=== PATIENT | male | born 1940 | race Caucasian/White ===

== ENCOUNTER 2018-12-03 06:40 | Inpatient (IN) ==
[2018-12-03 07:37] LABS: Eosinophils # (auto) 0.02 K/uL (0-0.5); Eosinophils % (auto) 0.4 %; Hematocrit (blood only) 28.6 % (42-52); Hemoglobin 8.8 g/dL (14.0-18.0); Immature Granulocytes # (auto) 0.01 K/uL (0.00-0.02); Immature Granulocytes % (auto) 0.2 %; Lymphocytes # (auto) 0.99 K/uL (1.2-3.4); Lymphocytes % (auto) 17.9 %; Mean Corpuscular Hemoglobin 24.9 pg (25-34); Mean Corpuscular Hgb Conc 30.8 g/dL (32-36); Monocytes # (auto) 0.35 K/uL (0.11-0.59); Monocytes % (auto) 6.3 %; Neutrophils # (auto) 4.17 K/uL (1.4-6.5); Neutrophils % (auto) 75.2 %; Platelet Count 158 K/uL (130-400); RDW Coefficient of Variation 14.8 % (11.5-14.5); RDW Standard Deviation 43.7 fL (36.4-46.3); Red Blood Count 3.53 M/uL (4.7-6.1); White Blood Count 5.54 K/uL (4.8-10.8)
[2018-12-03 07:47] LABS: INR 1.1 (0.9-1.1); Partial Thromboplastin Ratio 0.8; Partial Thromboplastin Time 22.6 Seconds (21.0-31.0); Prothrombin Time 10.9 Seconds (9.0-12.0)
[2018-12-03 07:52] LABS: Alanine Aminotransferase 16 U/L (12-78); Albumin Level 3.7 gm/dl (3.4-5.0); Aspartate Aminotransferase 10 U/L (15-37); BUN Creatinine Ratio 28.4 (10-20); Blood Urea Nitrogen 28 mg/dl (7-18); Calcium 8.4 mg/dl (8.5-10.1); Carbon Dioxide 25 mmol/L (21-32); Chloride 104 mmol/L (98-107); Creatinine Clr Calc Pharmacy 68.1 ml/min; Est GFR (African American) 83.6; Est GFR (Non-African American) 72.1; Glucose 183 mg/dl (70-99); Potassium 3.9 mmol/L (3.5-5.1); Sodium 137 mmol/L (136-145)
[2018-12-03 07:56] LABS: Albumin Globulin Ratio 1.2 (0.9-2); Alkaline Phosphatase 51 U/L (45-117); Bilirubin,Total 0.3 mg/dl (0.2-1); Creatine Kinase 63 U/L (39-308); Creatine Kinase MB 1.1 ng/ml (0.5-3.6); Total Protein 6.7 gm/dl (6.4-8.2); Troponin I < 0.015 ng/ml (0-0.045)
[2018-12-03] MEDS ORDERED: SODIUM CHLORIDE 0.9% 1000ML 1,000 ML IV ONE (08:16)
[2018-12-03] MEDS ORDERED: PANTOprazole 80 MG in DEXTROSE 5% 100 ML IV ONE (08:45)
[2018-12-03 08:50] LABS: iSTAT Creatinine 0.9 mg/dl (0.6-1.3); iSTAT Hemoglobin 9.5 g/dl (14.0-18.0); iSTAT Ionized Calcium 1.15 mmol/l (1.12-1.32); iSTAT Potassium 3.8 mEq/L (3.3-5.0)
[2018-12-03] MEDS ORDERED: IOVERSOL 100ml IV PRN (08:55)
--- NOTE | 2018-12-03 09:00 | History & Physical Report ---
Date of Service December 03, 2018 Assessment & Plan (1) GI bleed: Pt is 78 y/o M with PMH HTN, dyslipidemia, DM II, aortic sclerosis presented with c/o rectal bleeding x 1 day. Describes dark red blood and no stool x 3 episodes. C/O dizziness with standing this morning. Denies syncope, abdominal pain, recent diarrhea/constipation, fever/chills. No NSAID use or alcohol use. In ER afebrile, P: 87, BP: 111/64. No leukocytosis. H/H: 8.8/28.6 (Hgb of 12.9 in 2012), Plt: 158, BUN: 28, Cr: 0.9 CT ABD/PELVIS: No significant abnormality DDX: diverticular bleed -In ER given 1L NSS -PPI drip per GI -IVF -NPO for now -Hold aspirin -Type and cross and hold -Monitor H&H and transfuse as needed -GI consult, spoke with SERGIO Alonso and aware of pt -Monitor CBC, BMP (2) Abnormal EKG: EKG with left axis deviation. no significant changes from prior EKG No CP or SOB and denies exertional CP or SOB Initial troponin negative -Repeat troponin -Resting echo -Plan for further outpatient follow up if no acute findings (3) Diabetes mellitus, type II: A1c: 6.9 on 11/18/18 -Hold metformin, glimepiride, Januvia -Novolog sliding scale per protocol (4) HTN (hypertension): BP on low side with SBPs in low 100's -Hold lisinopril/HCTZ -Monitor BP (5) Dyslipidemia: -Hold statin for now DVT Prophylaxis -SCDs secondary to GI bleeding Full Code as per discussion with pt Follows with Dr Flores for routine care Pt was seen and care coordinated with Dr Hudson. See addendum History of Present Illness Chief Complaint: Rectal bleeding Primary Care Provider: Elvis Flores MD Pt is 78 y/o M with PMH HTN, dyslipidemia, DM II, aortic sclerosis presented to ER with c/o rectal bleeding. Patient states yesterday started with sensation like had to have BM however was all dark red blood and no stool. This occurred 3 times. This am dizziness with standing this morning. No syncope. Denies any chest pain or shortness of breath. Denies any abdominal pain. This morning drank a cup of coffee and ate a piece of bread with peanut butter. Denies fever/chills, diaphoresis, N/V, STARR, vision changes, neck pain, exertional CP or SOB, orthopnea, palpitations, cough, sore throat, choking, otalgia, rhinorrhea, paresthesias, weakness, extremity weakness, extremity edema, rashes, urinary symptoms. Hx colonoscopy in 2010: sigmoid diverticulosis Allergies Allergy/AdvReac Type Severity Reaction Status Date / Time No Known Allergies Allergy Unverified 12/03/18 07:23 Home Medications Home Medications Medication Instructions Recorded Confirmed Type aspirin [Aspir-81] 81 mg PO DAILY 12/03/18 12/03/18 History atorvastatin 40 mg PO HS 12/03/18 12/03/18 History cholecalciferol (vitamin D3) 1,000 unit PO QAM 12/03/18 12/03/18 History glimepiride 2 mg PO HS 12/03/18 12/03/18 History lisinopril-hydrochlorothiazide 1 tab PO QAM 12/03/18 12/03/18 History metformin 1,000 mg PO BID 12/03/18 12/03/18 History omega-3 fatty acids 1,000 mg PO QAM 12/03/18 12/03/18 History sitagliptin 100 mg PO QAM 12/03/18 12/03/18 History Past Med/Surg History Medical History Aortic valve sclerosis (Chronic) Diabetes mellitus, type II (Chronic) Dyslipidemia (Chronic) HTN (hypertension) (Chronic) No significant past medical history Surgical History History of colonoscopy (Chronic) 10/2010 colonoscopy: Sigmoid diverticulosis Family History Father Bladder cancer Diabetes Mother Diabetes Social History Preferred Language: Lithuanian Communication Ability: Effective Resident Physician Required: No Beliefs That Will Affect Care: None Current Living Situation: Spouse Other Information That Helps Us Care for You: No Feels Safe at Home: Yes Safety Concerns: Feels Safe At This Time Smoking Status: Current some day smoker Tobacco Type: cigars ; Cigarettes Per Day: 1 ; Do You Dip or Chew Tobacco: No ; Second Hand Exposure: No ; Tobacco Cessation Education Requested by Patient: No Hx Alcohol Use: No Hx Substance Use: No Review of Systems Review of Systems: All systems reviewed & are unremarkable except as noted in HPI & below Physical Exam Physical Exam: General: no acute distress, WDWN Head: normocephalic, atraumatic Eyes: PERRL, EOM's intact, conjunctiva pale, anicteric ENT: normal inspection external ears, nose, mucous membranes moist Neck: supple, trachea midline Lungs: clear, no respiratory distress, no wheezing/rhonchi/rales CV: RRR, +systolic murmur, no pretibial edema Abd: normal BS, soft, non-tender Ext: no cyanosis, no calf tenderness Neuro: A&O x 3, no focal deficits noted, normal affect Skin: pale, warm, dry Results & Data Vital Signs (Past 12 Hours) Vital Signs Temp Pulse Resp BP Pulse Ox 12/03/18 08:30 91 H 21 108/63 97 12/03/18 08:00 82 18 127/59 L 96 12/03/18 07:43 82 22 97 12/03/18 07:34 79 20 98 12/03/18 07:33 84 20 112/68 97 12/03/18 06:44 36.6 C 87 20 111/64 98 Laboratory Results Short CBC 12/03/18 Range/Units 07:21 WBC 5.54 (4.8-10.8) K/uL Hgb 8.8 L (14.0-18.0) g/dL Hct 28.6 L (42-52) % Plt Count 158 (130-400) K/uL BMP 12/03/18 07:21 Sodium 137 Potassium 3.9 Chloride 104 Carbon Dioxide 25 BUN 28 H Creatinine 0.99 Glucose 183 H Calcium 8.4 L Cardiac Enzymes 12/03/18 Range/Units 07:21 Total Creatine Kinase 63 (39-308) U/L CK-MB (CK-2) 1.1 (0.5-3.6) ng/ml Troponin I < 0.015 (0-0.045) ng/ml Liver Function 12/03/18 Range/Units 07:21 Total Bilirubin 0.3 (0.2-1) mg/dl AST 10 L (15-37) U/L ALT 16 (12-78) U/L Alkaline Phosphatase 51 (45-117) U/L Albumin 3.7 (3.4-5.0) gm/dl Diagnostic Findings CT ABD/PELVIS: IMPRESSION: No significant abnormality identified within the abdomen or pelvis. ECG Rate (beats per minute): 80 Rhythm: sinus rhythm Findings: + left axis deviation Change: no significant change (from 05/12/2004) Code Status & VTE Plan VTE Prophylaxis Plan VTE Prophylaxis will be ordered: Yes Supervising Physician Co-Signing Physician Notes Patient is a 78-year-old male with history of diverticulosis, polyps presents with history of bright red blood per rectum. Last aspirin use was yesterday. Denies any [id number] NSAID use. Reports mild dizziness with standing this morning. Hemoglobin 8.8. Coagulable work-up within normal limits. On exam patient is moderately built and nourished, no apparent distress, normocephalic atraumatic,+ pallor, lungs are clear to auscultation, S1-S2, + murmur, abdomen soft nontender, no pedal edema, grossly no focal neurological deficits. Patient is admitted for management of acute GI bleed. Agree with holding aspirin, avoid NSAIDs. Started on IV Protonix drip, IV fluids, n.p.o. Appreciate GI input. Transfuse PRBCs as needed. Monitor H&H. Plan for EGD tomorrow. I personally reviewed the record. Patient is interviewed and examined at bedside. Patient's care is coordinated with Meagan Garcia PA-C. Please refer to the documentation above for details of patient's presentation and for discussion of other issues.
--- NOTE | 2018-12-03 09:08 | CT Scan Report ---
CT abd pelvis IV con only CT DOSE: 495.47 mGy.cm HISTORY: Pt c/o GI bleed TECHNIQUE: Multiaxial CT images of the abdomen and pelvis were performed following the use of intrave nous contrast. A dose lowering technique was utilized adhering to the principles of ALARA. COMPARISON STUDY: None. FINDINGS: The lung bases are clear. The liver, spleen, gallbladder, pancreas, kidneys, and adrenal gl ands are within normal limits. No bowel wall thickening or obstruction. The pelvic organs are unremar kable. No suspicious lytic or blastic osseous lesions. IMPRESSION: No significant abnormality identified within the abdomen or pelvis. The above report was generated using voice recognition software. It may contain grammatical, syntax or spelling errors. Electronically signed by: Elvis Knowles M.D. 12/03/2018 9:06 AM
[2018-12-03] MEDS: PANTOprazole 40 MG in DEXTROSE 5% 100 ML IV SCH ×4 (09:26→23:57)
--- NOTE | 2018-12-03 11:43 | Gastrointestinal Consultation ---
Date of Consultation December 03, 2018 Assessment & Plan (1) GI bleed: (2) Anemia: Pt is a 78 y/o male w anemia and dark blood stools started yesterday afternoon. Hx of adenomatous and hyperplastic polyps, sigmoid diverticulosis. CT abd/pelvis w contrast unrevealing. He had been on ASA 81, no anticoagulant, denies NSAIDs. - NPO for now - PPI bolus and gtt - Monitor H/H closely and transfuse prn - Will re-eval this afternoon, if not continued Gi bleeding may start CL diet. However would keep NPO after midnight for possible EGD eval tomorrow to r/o PUD, AVMs other source of UGI bleeding - ? EKG changes w/o CP hx. Hospitalist team to obtain troponin and echocardiogram Supervising Physician Co-Signing Physician Notes I have personally seen and examined the patient with SERGIO Sol. Her note reflects my exam and finding. I agree with her impression and plan. Presentation most c/w upper GI bleed from ASA use. Follow H/H. Will arrange EGD. Austin Orantes M.D. History of Present Illness Reason for Consultation: GI bleeding Requesting Physician: Dr. Wilmer Nayak Attending Physician: Dr. Austin Orantes History of Present Illness Pt is a 78 y/o male who presented to ED w c/o bloody stools since yesterday afternoon. He was in his usual state of health then yesterday around 4P started to have dark red bloody diarrhea. He denies associated symptoms of fever, chills, CP, SOB, lightheadedness/dizziness, syncope, abd pain, n/v. He was eating pot pie all day per his report. He continued to eat up till breakfast today (coffee and peanut butter toast). He had total of about 4 BMs since yesterday afternoon and today. On eval, noted H/H 8.8/28. Outpt chart reviewed, last Hgb obtained in 2012 was 12.9. He has normal plt ct and coag function. BUN elevated 28. CT abd/pelvis unremarkable w/o inflammatory or obstructive pattern. He takes ASA 81mg daily. Denies being on anticoagulants. Denies NSAIDs. Smokes cigars occasionally, denies ETOH. He had colonoscopies in 2006, 2010. Hx of hyperplastic and adenomatous polyps, sigmoid diverticulosis. Allergies Allergy/AdvReac Type Severity Reaction Status Date / Time No Known Allergies Allergy Unverified 12/03/18 07:23 Home Medications Home Medications Medication Instructions Recorded Confirmed Type aspirin [Aspir-81] 81 mg PO DAILY 12/03/18 12/03/18 History atorvastatin 40 mg PO HS 12/03/18 12/03/18 History cholecalciferol (vitamin D3) 1,000 unit PO QAM 12/03/18 12/03/18 History glimepiride 2 mg PO HS 12/03/18 12/03/18 History lisinopril-hydrochlorothiazide 1 tab PO QAM 12/03/18 12/03/18 History metformin 1,000 mg PO BID 12/03/18 12/03/18 History omega-3 fatty acids 1,000 mg PO QAM 12/03/18 12/03/18 History sitagliptin 100 mg PO QAM 12/03/18 12/03/18 History Patient History Medical History Aortic valve sclerosis (Chronic) Diabetes mellitus, type II (Chronic) Dyslipidemia (Chronic) HTN (hypertension) (Chronic) No significant past medical history Surgical History History of colonoscopy (Chronic) 10/2010 colonoscopy: Sigmoid diverticulosis Family History Father Bladder cancer Diabetes Mother Diabetes Social History Preferred Language: Peruvian Communication Ability: Effective Dog Groomer Required: No Beliefs That Will Affect Care: None Current Living Situation: Spouse Other Information That Helps Us Care for You: No Feels Safe at Home: Yes Safety Concerns: Feels Safe At This Time Smoking Status: Current some day smoker Tobacco Type: cigars ; Cigarettes Per Day: 1 ; Do You Dip or Chew Tobacco: No ; Second Hand Exposure: No ; Tobacco Cessation Education Requested by Patient: No Hx Alcohol Use: No Hx Substance Use: No Review of Systems Review of Systems: All systems reviewed & are unremarkable except as noted in HPI & below Physical Exam Constitutional: WD/WN, vitals as above well groomed, cooperative and comfortable Eyes: PERRL, conjunctivae normal, anicteric sclerae ENMT: external ear and nose normal, oropharynx normal Respiratory: normal respiratory effort, lungs clear to auscultation Cardiovascular: Rate/Rhythm: regular rate and regular rhythm Heart Sounds: + murmur Gastrointestinal (Abdomen): normal bowel sounds, soft, nontender, no hepatosplenomegaly Skin: no rashes, warm and dry no jaundice Neurologic: Motor/Sensory: no asterixis Psychiatric: A+Ox3, euthymic affect Lymphatic: no lymphedema Results & Data Vital Signs (Past 12 Hours) Vital Signs Temp Pulse Resp BP Pulse Ox 12/03/18 11:00 71 20 156/80 H 99 12/03/18 10:30 65 18 150/77 H 99 12/03/18 10:00 62 12 152/77 H 99 12/03/18 09:30 65 17 155/80 H 100 12/03/18 09:04 69 20 127/60 99 12/03/18 09:03 72 18 12/03/18 08:30 91 H 21 108/63 97 12/03/18 08:00 82 18 127/59 L 96 12/03/18 07:43 82 22 97 12/03/18 07:34 79 20 98 12/03/18 07:33 84 20 112/68 97 12/03/18 06:44 36.6 C 87 20 111/64 98
[2018-12-03] MEDS ORDERED: GLUCOSE 40% GEL 15 GM TUBE PO PRN (12:52)
[2018-12-03] MEDS ORDERED: GLUCAGON FOR INJ 1 MG VIAL SQ PRN (12:52)
[2018-12-03] MEDS ORDERED: SODIUM CHLORIDE 0.9% 250 ML IV PRN (12:52)
[2018-12-03] MEDS ORDERED: ONDANSETRON INJ 2 MG/ML 2 ML VIAL IV PRN (12:52)
[2018-12-03] MEDS ORDERED: CARBOHYDRATES FOR HYPOGLYCEMIA PO PRN (12:52)
[2018-12-03] MEDS ORDERED: DEXTROSE 50% 50 ML SYRINGE IV PRN (12:52)
[2018-12-03] MEDS ORDERED: GLUCOSE 10 TABS/TUBE PO PRN (12:52)
[2018-12-03] MEDS: SODIUM CHLORIDE 0.9% 1000ML 1,000 ML IV SCH ×2 (13:10→21:34)
[2018-12-03 13:34] LABS: Hematocrit (blood only) 27.9 % (42-52); Hemoglobin 8.7 g/dL (14.0-18.0)
[2018-12-03] MEDS: INSULIN ASPART 100 UNITS/ML 3 ML PEN SC SCH ×2 (13:47→17:37)
--- NOTE | 2018-12-03 14:21 | Cardiology Consultation ---
Date of Consultation December 03, 2018 Assessment & Plan (1) Anemia: (2) Abnormal EKG: (3) GI bleed: (4) Diabetes mellitus, type II: The patient has no significant past cardiac history. He is currently clinically stable and not expressing any cardiac symptoms. His first troponin is negative. He has an echocardiogram pending which I will review. I suspect however, he will not need any additional cardiac testing. I was treat his anemia as required. History of Present Illness Attending Physician: Diallo Hudson MD History of Present Illness This is a 78-year-old male patient with no prior history of heart disease. He was admitted with GI bleeding felt to be due to diverticulitis. He is anemic but has not required a blood transfusion. He is being followed by the GI service. After admission he was noted to have an EKG abnormality with a conduction delay. He is expressing no current cardiac complaints. He denies chest pain or shortness of breath. He has had no heart palpitations or tachycardia. He is a diabetic. He smokes an occasional cigar. He has no history of previous strokes or kidney disease. Allergies Allergy/AdvReac Type Severity Reaction Status Date / Time No Known Allergies Allergy Unverified 12/03/18 07:23 Home Medications Home Medications Medication Instructions Recorded Confirmed Type aspirin [Aspir-81] 81 mg PO DAILY 12/03/18 12/03/18 History atorvastatin 40 mg PO HS 12/03/18 12/03/18 History cholecalciferol (vitamin D3) 1,000 unit PO QAM 12/03/18 12/03/18 History glimepiride 2 mg PO HS 12/03/18 12/03/18 History lisinopril-hydrochlorothiazide 1 tab PO QAM 12/03/18 12/03/18 History metformin 1,000 mg PO BID 12/03/18 12/03/18 History omega-3 fatty acids 1,000 mg PO QAM 12/03/18 12/03/18 History sitagliptin 100 mg PO QAM 12/03/18 12/03/18 History Patient History Medical History Aortic valve sclerosis (Chronic) Diabetes mellitus, type II (Chronic) Dyslipidemia (Chronic) HTN (hypertension) (Chronic) No significant past medical history Surgical History History of colonoscopy (Chronic) 10/2010 colonoscopy: Sigmoid diverticulosis Family History Father Bladder cancer Diabetes Mother Diabetes Social History Preferred Language: Nepali Communication Ability: Effective Tool Machinist Required: No Beliefs That Will Affect Care: None Current Living Situation: Spouse Other Information That Helps Us Care for You: No Feels Safe at Home: Yes Safety Concerns: Feels Safe At This Time Smoking Status: Current some day smoker Tobacco Type: cigars ; Cigarettes Per Day: 1 ; Do You Dip or Chew Tobacco: No ; Second Hand Exposure: No ; Tobacco Cessation Education Requested by Patient: No Hx Alcohol Use: No Hx Substance Use: No Review of Systems Review of Systems: All systems reviewed & are unremarkable except as noted in HPI & below Nothing additional. Physical Exam Physical Exam: General: no acute distress and stated age Head: normocephalic, no masses, lesions, tenderness or abnormalities Eyes: conjunctiva are pink and non-injected, sclera clear Neck: supple, no adenopathy, no bruits, normal jugular venous pulse, no hepatojugular reflux Chest: normal shape and normal respiratory effort Lungs: clear to auscultation and percussion Cardiac Exam: - regular rate & rhythm, no murmurs gallops or rubs - normal S1, normal S2 Pulses: 2(+) throughout Abdomen: abdomen soft, non-tender, no abnormal masses and no hepatosplenomegaly Musculoskeletal: no gait disturbance, no joint inflammation, no deforming arthritis Extremities: no edema and no cyanosis Neuro: grossly normal exam Results & Data Vital Signs (Past 12 Hours) Vital Signs Temp Pulse Resp BP Pulse Ox 12/03/18 12:00 75 18 131/72 99 12/03/18 11:30 67 17 149/74 H 100 12/03/18 11:00 71 20 156/80 H 99 12/03/18 10:30 65 18 150/77 H 99 12/03/18 10:00 62 12 152/77 H 99 12/03/18 09:30 65 17 155/80 H 100 12/03/18 09:04 69 20 127/60 99 12/03/18 09:03 72 18 12/03/18 08:30 91 H 21 108/63 97 12/03/18 08:00 82 18 127/59 L 96 12/03/18 07:43 82 22 97 12/03/18 07:34 79 20 98 12/03/18 07:33 84 20 112/68 97 12/03/18 06:44 36.6 C 87 20 111/64 98 Laboratory Results Laboratory Results - last 24 hr 12/03/18 12/03/18 12/03/18 07:21 07:21 07:21 WBC 5.54 RBC 3.53 L Hgb 8.8 L POC Hgb Hct 28.6 L POC Hct MCV 81.0 MCH 24.9 L MCHC 30.8 L RDW Std Deviation 43.7 RDW Coeff of Erendira 14.8 H Plt Count 158 MPV 9.0 Immature Gran % (Auto) 0.2 Neut % (Auto) 75.2 Lymph % (Auto) 17.9 Duc[place]ne % (Auto) 6.3 Eos % (Auto) 0.4 Baso % (Auto) 0.0 Immature Gran # (Auto) 0.01 Neut # (Auto) 4.17 Lymph # (Auto) 0.99 L [place] # (Auto) 0.35 Eos # (Auto) 0.02 Baso # (Auto) 0.00 PT 10.9 INR 1.1 APTT 22.6 PTT Ratio 0.8 POC Sodium Sodium 137 POC Potassium Potassium 3.9 POC Chloride Chloride 104 Carbon Dioxide 25 POC Total CO2 Anion Gap 8.0 POC Anion Gap POC BUN BUN 28 H Creatinine 0.99 POC Creatinine Est Cr Clr Drug Dosing 68.1 Est GFR ( Amer) 83.6 Est GFR (Non-Af Amer) 72.1 BUN/Creatinine Ratio 28.4 H Glucose 183 H POC Glucose POC Glucose (other) Calcium 8.4 L POC Ioniz Calcium Windy Total Bilirubin 0.3 AST 10 L ALT 16 Alkaline Phosphatase 51 Total Creatine Kinase 63 CK-MB (CK-2) 1.1 CK/CKMB % Calc 1.7 Troponin I < 0.015 Total Protein 6.7 Albumin 3.7 Globulin 3.0 Albumin/Globulin Ratio 1.2 POC Stool Occult Blood Stl C. diff Tox B Gene Blood Type Blood Type Recheck Antibody Screen Crossmatch 12/03/18 12/03/18 12/03/18 07:21 07:31 11:30 WBC RBC Hgb POC Hgb 9.5 L Hct POC Hct 28 L MCV MCH MCHC RDW Std Deviation RDW Coeff of Erendira Plt Count MPV Immature Gran % (Auto) Neut % (Auto) Lymph % (Auto) [place] % (Auto) Eos % (Auto) Baso % (Auto) Immature Gran # (Auto) Neut # (Auto) Lymph # (Auto) [place] # (Auto) Eos # (Auto) Baso # (Auto) PT INR APTT PTT Ratio POC Sodium 138 Sodium POC Potassium 3.8 Potassium POC Chloride 100 L Chloride Carbon Dioxide POC Total CO2 26 Anion Gap POC Anion Gap 18.0 POC BUN 28 H BUN Creatinine POC Creatinine 0.9 Est Cr Clr Drug Dosing Est GFR ( Amer) Est GFR (Non-Af Amer) BUN/Creatinine Ratio Glucose POC Glucose POC Glucose (other) 180 H Calcium POC Ioniz Calcium Windy 1.15 Total Bilirubin AST ALT Alkaline Phosphatase Total Creatine Kinase CK-MB (CK-2) CK/CKMB % Calc Troponin I Total Protein Albumin Globulin Albumin/Globulin Ratio POC Stool Occult Blood Stl C. diff Tox B Gene Negative Cdiff Gene Blood Type O Negative Blood Type Recheck Antibody Screen NEGATIVE Crossmatch See Detail 12/03/18 12/03/18 12/03/18 12:07 13:16 13:16 WBC RBC Hgb 8.7 L POC Hgb Hct 27.9 L POC Hct MCV MCH MCHC RDW Std Deviation RDW Coeff of Erendira Plt Count MPV Immature Gran % (Auto) Neut % (Auto) Lymph % (Auto) [place] % (Auto) Eos % (Auto) Baso % (Auto) Immature Gran # (Auto) Neut # (Auto) Lymph # (Auto) [place] # (Auto) Eos # (Auto) Baso # (Auto) PT INR APTT PTT Ratio POC Sodium Sodium POC Potassium Potassium POC Chloride Chloride Carbon Dioxide POC Total CO2 Anion Gap POC Anion Gap POC BUN BUN Creatinine POC Creatinine Est Cr Clr Drug Dosing Est GFR ( Amer) Est GFR (Non-Af Amer) BUN/Creatinine Ratio Glucose POC Glucose POC Glucose (other) Calcium POC Ioniz Calcium Windy Total Bilirubin AST ALT Alkaline Phosphatase Total Creatine Kinase CK-MB (CK-2) CK/CKMB % Calc Troponin I < 0.015 Total Protein Albumin Globulin Albumin/Globulin Ratio POC Stool Occult Blood Positive A Stl C. diff Tox B Gene Blood Type Blood Type Recheck Antibody Screen Crossmatch 12/03/18 12/03/18 13:16 13:16 WBC RBC Hgb POC Hgb Hct POC Hct MCV MCH MCHC RDW Std Deviation RDW Coeff of Erendira Plt Count MPV Immature Gran % (Auto) Neut % (Auto) Lymph % (Auto) [place] % (Auto) Eos % (Auto) Baso % (Auto) Immature Gran # (Auto) Neut # (Auto) Lymph # (Auto) [place] # (Auto) Eos # (Auto) Baso # (Auto) PT INR APTT PTT Ratio POC Sodium Sodium POC Potassium Potassium POC Chloride Chloride Carbon Dioxide POC Total CO2 Anion Gap POC Anion Gap POC BUN BUN Creatinine POC Creatinine Est Cr Clr Drug Dosing Est GFR ( Amer) Est GFR (Non-Af Amer) BUN/Creatinine Ratio Glucose POC Glucose 120 H POC Glucose (other) Calcium POC Ioniz Calcium Windy Total Bilirubin AST ALT Alkaline Phosphatase Total Creatine Kinase CK-MB (CK-2) CK/CKMB % Calc Troponin I Total Protein Albumin Globulin Albumin/Globulin Ratio POC Stool Occult Blood Stl C. diff Tox B Gene Blood Type Blood Type Recheck O Negative Antibody Screen Crossmatch Diagnostic Findings EKG reveals a sinus rhythm with nonspecific interventricular conduction delay. Medications Administered Current Inpatient Medications Dextrose (Dextrose 50%) 25 - 50 ml IV UD PRN; Protocol PRN Reason: Hypoglycemia Protocol Stop: 01/02/19 12:51 Glucagon (Glucagen) 1 mg SQ UD PRN; Protocol PRN Reason: Hypoglycemia Protocol Stop: 01/02/19 12:51 Glucose (Glucose 40%) 15 - 30 gm PO UD PRN; Protocol PRN Reason: Hypoglycemia Protocol Stop: 01/02/19 12:51 Glucose (Dex4 Glucose) 4 - 8 tabs PO UD PRN; Protocol PRN Reason: Hypoglycemia Protocol Stop: 01/02/19 12:51 Pantoprazole Sodium 40 mg/ (Dextrose) 100 mls @ 20 mls/hr IV Q5H ALIX Stop: 01/02/19 08:59 Last Admin: 12/03/18 13:56 Dose: 20 mls/hr Documented by: Sodium Chloride (Nss 1000ml) 1,000 mls @ 125 mls/hr IV .Q8H ALIX Stop: 01/02/19 12:51 Last Admin: 12/03/18 13:10 Dose: 125 mls/hr Documented by: Sodium Chloride (Nss) 250 mls @ 15 mls/hr IV .[id number] PRN PRN Reason: For Transfusion Stop: 01/02/19 12:51 Insulin Aspart (Novolog Flexpen) 0 units SC Q6 ALIX Stop: 01/02/19 12:59 Last Admin: 12/03/18 13:47 Dose: Not Given Documented by: Miscellaneous (Carbohydrates For Hypoglycemia) 15 - 30 gm PO UD PRN PRN Reason: Hypoglycemia Treatment Stop: 01/02/19 12:51 Ondansetron HCl (Zofran) 4 mg IV Q6H PRN PRN Reason: Nausea Stop: 01/02/19 12:51
--- NOTE | 2018-12-03 16:51 | Emergency Department Note ---
Entered by Peyman Schmidt acting as a scribe for History of Present Illness General Chief complaint: Rectal Bleed Stated complaint: BLOOD WHEN GOING TO THE BATHROOM Time Seen by Provider: 12/03/18 06:52 Source: patient History of Present Illness Onset (ago): day(s) 1 Location: abdomen Pain Consistency: + other (multiple episodes) Quality: + other (hematochezia) Associated symptoms: + other (+dizziness; +nauseous; -abdominal pain ) The patient is a 78 year old male, with no significant past medical history, who presents to the Emergency Room with complaints of multiple episodes of hematochezia beginning yesterday. The patient states it occurred three times yesterday. The patient notes he formed stools during each episode, and he denies diarrhea but states there was blood in the toilet each time. The patient also notes he has been dizzy and nauseated. The patient denies abdominal pain. The patient states he takes baby aspirin daily. The patient also reports he has had two colonoscopies in the past, and he states the last one was in the last 5 years and completed at [facility]. The patient does note that he has been under a lot of stress recently. Home Medications Home Medications Medication Instructions Recorded Confirmed Type aspirin [Aspir-81] 81 mg PO DAILY 12/03/18 12/03/18 History atorvastatin 40 mg PO HS 12/03/18 12/03/18 History cholecalciferol (vitamin D3) 1,000 unit PO QAM 12/03/18 12/03/18 History glimepiride 2 mg PO HS 12/03/18 12/03/18 History lisinopril-hydrochlorothiazide 1 tab PO QAM 12/03/18 12/03/18 History metformin 1,000 mg PO BID 12/03/18 12/03/18 History omega-3 fatty acids 1,000 mg PO QAM 12/03/18 12/03/18 History sitagliptin 100 mg PO QAM 12/03/18 12/03/18 History Allergies Allergy/AdvReac Type Severity Reaction Status Date / Time No Known Allergies Allergy Unverified 12/03/18 07:23 Past Med/Surg History Medical History Aortic valve sclerosis (Chronic) Diabetes mellitus, type II (Chronic) Dyslipidemia (Chronic) HTN (hypertension) (Chronic) No significant past medical history Surgical History History of colonoscopy (Chronic) 10/2010 colonoscopy: Sigmoid diverticulosis Family History Father Bladder cancer Diabetes Mother Diabetes Social History Preferred Language: [place] Communication Ability: Effective Judicial Registrar Required: No Beliefs That Will Affect Care: None Current Living Situation: Spouse Other Information That Helps Us Care for You: No Feels Safe at Home: Yes Safety Concerns: Feels Safe At This Time Smoking Status: Current some day smoker Tobacco Type: cigars ; Cigarettes Per Day: 1 ; Do You Dip or Chew Tobacco: No ; Second Hand Exposure: No ; Tobacco Cessation Education Requested by Patient: No Hx Alcohol Use: No Hx Substance Use: No Review of Systems See HPI for pertinent positives & negatives. and A total of 10 systems reviewed and were otherwise negative Physical Exam Vital Signs Vital Signs - 24 hr 12/03/18 06:44 12/03/18 07:33 12/03/18 07:34 Temperature 36.6 C Temperature Source Oral Sepsis Action Taken by Nursing No Action Required Pulse Rate 87 84 79 Pulse Rate from SpO2 Sensor 84 Respiratory Rate 20 20 20 Respiratory Effort / Characteristics Non-Labored Spontaneous Respiratory Depth Normal Blood Pressure 111/64 112/68 Blood Pressure Mean 79 82 Pulse Oximetry 98 97 98 Oxygen Delivery Method Room Air Room Air 12/03/18 07:43 12/03/18 08:00 12/03/18 08:30 Temperature Temperature Source Sepsis Action Taken by Nursing Pulse Rate 82 82 91 H Pulse Rate from SpO2 Sensor 81 83 87 Respiratory Rate 22 18 21 Respiratory Effort / Characteristics Respiratory Depth Blood Pressure 127/59 L 108/63 Blood Pressure Mean 81 78 Pulse Oximetry 97 96 97 Oxygen Delivery Method GENERAL: Awake, alert, well-appearing, in no acute distress HENT: Normocephalic, atraumatic. Oropharynx unremarkable. EYES: Normal conjunctiva. Sclera non-icteric. NECK: Supple. No nuchal rigidity. FROM. No JVD. RESPIRATORY: Clear to auscultation. CARDIAC: Regular rate, normal rhythm. Extremities warm and well perfused. Pulses equal. ABDOMEN: Soft, non-distended. No tenderness to palpation. No rebound or guarding. No masses. RECTAL: Dark red stools on rectal exam, heme positive, no mass. MUSCULOSKELETAL: Chest examination reveals no tenderness. The back is symmetrical on inspection without obvious abnormality. There is no CVA tenderness to palpation. No joint edema. LOWER EXTREMITIES: Calves are equal size bilaterally and non-tender. No edema. No discoloration. NEURO: Normal sensorium. No sensory or motor deficits noted. SKIN: No rash or jaundice noted. Course 0657: Past medical records reviewed. The patient was evaluated in room B12B. A complete history and physical exam was performed. 0731: I reevaluated and updated the patient on his case. 0749: The patient signed blood consent. 0815: I reviewed the patient's case with Meagan Posada. Dr. Mode Posada will evaluate the patient for further management. 0826: I discussed the patient's case with Dr. Mode Posada. 0837: I discussed the patient's case with Dr. MarshCardiology. Consultations Consultation #1: I reviewed the patient's case with Meagan Posada. Dr. Mode Posada will evaluate the patient for further man agement. Time: 08:15 Consultation #2: I discussed the patient's case with Dr. Mode Posada. Time: 08:26 Consultation #3: I discussed the patient's case with Dr. MarshCardiology. Time: 08:37 Administered Medications Pantoprazole Sodium 40 mg/ (Dextrose) 100 mls @ 20 mls/hr IV Q5H ALIX Stop: 01/02/19 08:59 Last Admin: 12/05/18 11:41 Dose: 20 mls/hr Documented by: [id number] Infusion: 12/05/18 11:41 Dose: 20 mls/hr Documented by: [id number] Admin: 12/05/18 07:38 Dose: 20 mls/hr Documented by: [id number] Infusion: 12/05/18 07:38 Dose: 20 mls/hr Documented by: [id number] Admin: 12/05/18 02:47 Dose: 20 mls/hr Documented by: [id number] Infusion: 12/05/18 02:43 Dose: 0 mls/hr Documented by: [id number] Admin: 12/04/18 21:25 Dose: 20 mls/hr Documented by: [id number] Infusion: 12/04/18 21:00 Dose: 20 mls/hr Documented by: [id number] Admin: 12/04/18 16:00 Dose: 20 mls/hr Documented by: [id number] Infusion: 12/04/18 14:57 Dose: 20 mls/hr Documented by: [id number] Admin: 12/04/18 09:57 Dose: 20 mls/hr Documented by: [id number] Infusion: 12/04/18 09:35 Dose: 20 mls/hr Documented by: [id number] Admin: 12/04/18 04:35 Dose: 20 mls/hr Documented by: [id number] Infusion: 12/04/18 04:35 Dose: 20 mls/hr Documented by: [id number] Admin: 12/03/18 23:57 Dose: 20 mls/hr Documented by: [id number] Infusion: 12/03/18 23:56 Dose: 20 mls/hr Documented by: [id number] Admin: 12/03/18 18:56 Dose: 20 mls/hr Documented by: [id number] Infusion: 12/03/18 18:56 Dose: 20 mls/hr Documented by: [id number] Admin: 12/03/18 13:56 Dose: 20 mls/hr Documented by: [id number] Infusion: 12/03/18 13:56 Dose: 20 mls/hr Documented by: [id number] Admin: 12/03/18 09:26 Dose: 20 mls/hr Documented by: [id number] Sodium Chloride (Nss 1000ml) 1,000 mls @ 75 mls/hr IV .[id number] ALIX Stop: 01/02/19 12:51 Last Admin: 12/05/18 09:07 Dose: Not Given Documented by: [id number] Infusion: 12/04/18 21:25 Dose: 0 mls/hr Documented by: [id number] Admin: 12/04/18 15:24 Dose: 75 mls/hr Documented by: [id number] Infusion: 12/04/18 15:24 Dose: 0 mls/hr Documented by: [id number] Infusion: 12/04/18 07:56 Dose: 0 mls/hr Documented by: [id number] Admin: 12/04/18 05:35 Dose: 125 mls/hr Documented by: [id number] Infusion: 12/04/18 05:34 Dose: 125 mls/hr Documented by: [id number] Admin: 12/03/18 21:34 Dose: 125 mls/hr Documented by: [id number] Infusion: 12/03/18 21:10 Dose: 125 mls/hr Documented by: [id number] Admin: 12/03/18 13:10 Dose: 125 mls/hr Documented by: [id number] Insulin Aspart (Novolog Flexpen) 0 units SC ACHS ALIX Stop: 01/02/19 12:59 Last Admin: 12/05/18 13:18 Dose: 2 units Documented by: [id number] Cosigned by: [id number] Admin: 12/05/18 09:05 Dose: Not Given Documented by: [id number] Cosigned by: [id number] Admin: 12/04/18 21:24 Dose: Not Given Documented by: [id number] Cosigned by: [id number] Admin: 12/04/18 17:30 Dose: 3 units Documented by: [id number] Cosigned by: [id number] Lisinopril (Zestril) 10 mg PO QAM [facility] Stop: 01/03/19 16:29 Last Admin: 12/05/18 09:04 Dose: 10 mg Documented by: [id number] Admin: 12/04/18 17:39 Dose: 10 mg Documented by: [id number] Vitamin D (Vitamin D3) 1,000 units PO QAM [facility] Stop: 01/04/19 08:59 Last Admin: 12/05/18 09:23 Dose: 1,000 units Documented by: [id number] Discontinued Medications Sodium Chloride (Nss 1000ml) 1,000 mls @ 999 mls/hr IV .Q1H1M ONE Stop: 12/03/18 09:16 Last Infusion: 12/03/18 10:07 Dose: 0 mls/hr Documented by: [id number] Admin: 12/03/18 09:05 Dose: 999 mls/hr Documented by: [id number] Pantoprazole Sodium 80 mg/ (Dextrose) 120 mls @ 480 mls/hr IV TODAY@0845 ONE Stop: 12/03/18 08:59 Last Infusion: 12/03/18 09:26 Dose: 0 mls/hr Documented by: [id number] Admin: 12/03/18 09:06 Dose: 480 mls/hr Documented by: [id number] Magnesium Sulfate/Dextrose (Magnesium Sulfate / D5w) 1 gm in 100 mls @ 100 mls/hr IV ONE ONE Stop: 12/05/18 08:55 Last Infusion: 12/05/18 11:07 Dose: 0 mls/hr Documented by: [id number] Infusion: 12/05/18 10:18 Dose: 100 mls/hr Documented by: [id number] Infusion: 12/05/18 09:38 Dose: 0 mls/hr Documented by: [id number] Admin: 12/05/18 09:23 Dose: 100 mls/hr Documented by: [id number] Calcium Gluconate 1,000 mg/ (Sodium Chloride) 60 mls @ 240 mls/hr IV NOW ONE Stop: 12/05/18 08:14 Last Infusion: 12/05/18 10:18 Dose: 0 mls/hr Documented by: [id number] Infusion: 12/05/18 10:12 Dose: 240 mls/hr Documented by: [id number] Infusion: 12/05/18 09:38 Dose: 0 mls/hr Documented by: [id number] Admin: 12/05/18 09:24 Dose: 240 mls/hr Documented by: [id number] Insulin Aspart (Novolog Flexpen) 0 units SC Q6 ALIX Stop: 01/02/19 12:59 Last Admin: 12/04/18 15:26 Dose: 2 units Documented by: [id number] Cosigned by: [id number] Admin: 12/04/18 05:42 Dose: Not Given Documented by: [id number] Cosigned by: [id number] Admin: 12/04/18 00:47 Dose: Not Given Documented by: [id number] Cosigned by: [id number] Admin: 12/03/18 17:37 Dose: Not Given Documented by: [id number] Cosigned by: [id number] Admin: 12/03/18 13:47 Dose: Not Given Documented by: [id number] Cosigned by: [id number] Ioversol (Optiray 320 100ml) 94 ml IV ONCE PRN PRN Reason: Interaction Checking Stop: 12/07/18 08:54 Last Admin: 12/03/18 08:55 Dose: 94 ml Documented by: [id number] Lidocaine HCl (Xylocaine 2%) Confirm Administered Dose 2 ml INFIL .STK-MED ONE Stop: 12/04/18 13:06 Last Admin: 12/04/18 14:05 Dose: Not Given Documented by: [id number] Propofol (Diprivan) Confirm Administered Dose 200 mg IV .STK-MED ONE Stop: 12/04/18 13:06 Last Admin: 12/04/18 14:05 Dose: Not Given Documented by: [id number] Medical Decision Making Differential Diagnosis Differential diagnosis: Etiologies such as diverticulosis, AVM, coagulopathy, colitis, inflammatory bowel disease, malignancy, Rochelle-Xie tear, esophagitis, peptic ulcer disease, variceal bleed, gastritis, epistaxis, fissure, hemorrhoids, as well as others were entertained. Medical Records Attestation: I reviewed the patient's medical records. Home Medications Current Medication List: was personally reviewed by me Laboratory Data Attestation: I reviewed the patient's lab results. Result diagrams: 12/05/18 05:42 12/05/18 05:42 Lab Results 12/03/18 12/03/18 12/03/18 Range/Units 07:21 07:21 07:21 WBC 5.54 (4.8-10.8) K/uL RBC 3.53 L (4.7-6.1) M/uL Hgb 8.8 L (14.0-18.0) g/dL POC Hgb (14.0-18.0) g/dl Hct 28.6 L (42-52) % POC Hct (42-52) % MCV 81.0 (80-100) fL MCH 24.9 L (25-34) pg MCHC 30.8 L (32-36) g/dL RDW Std Deviation 43.7 (36.4-46.3) fL RDW Coeff of Erendira 14.8 H (11.5-14.5) % Plt Count 158 (130-400) K/uL MPV 9.0 (7.4-10.4) fL Immature Gran % (Auto) 0.2 % Neut % (Auto) 75.2 % Lymph % (Auto) 17.9 % Furnas % (Auto) 6.3 % Eos % (Auto) 0.4 % Baso % (Auto) 0.0 % Immature Gran # (Auto) 0.01 (0.00-0.02) K/uL Neut # (Auto) 4.17 (1.4-6.5) K/uL Lymph # (Auto) 0.99 L (1.2-3.4) K/uL Furn[place] # (Auto) 0.35 (0.11-0.59) K/uL Eos # (Auto) 0.02 (0-0.5) K/uL Baso # (Auto) 0.00 (0-0.2) K/uL PT 10.9 (9.0-12.0) Seconds INR 1.1 (0.9-1.1) APTT 22.6 (21.0-31.0) Seconds PTT Ratio 0.8 POC Sodium (135-144) mEq/L Sodium 137 (136-145) mmol/L POC Potassium (3.3-5.0) mEq/L Potassium 3.9 (3.5-5.1) mmol/L POC Chloride (101-112) mEq/L Chloride 104 (98-107) mmol/L Carbon Dioxide 25 (21-32) mmol/L POC Total CO2 (24-31) mEq/l Anion Gap 8.0 (3-11) POC Anion Gap (16-25) mmol/L POC BUN (7-18) mg/dl BUN 28 H (7-18) mg/dl Creatinine 0.99 (0.6-1.4) mg/dl POC Creatinine (0.6-1.3) mg/dl Est Cr Clr Drug Dosing 68.1 ml/min Est GFR ( Amer) 83.6 Est GFR (Non-Af Amer) 72.1 BUN/Creatinine Ratio 28.4 H (10-20) Glucose 183 H (70-99) mg/dl POC Glucose (other) (70-99) mg/dl Calcium 8.4 L (8.5-10.1) mg/dl POC Ioniz Calcium Windy (1.12-1.32) mmol/l Total Bilirubin 0.3 (0.2-1) mg/dl AST 10 L (15-37) U/L ALT 16 (12-78) U/L Alkaline Phosphatase 51 (45-117) U/L Total Creatine Kinase 63 (39-308) U/L CK-MB (CK-2) 1.1 (0.5-3.6) ng/ml CK/CKMB % Calc 1.7 (0-3.0) Troponin I < 0.015 (0-0.045) ng/ml Total Protein 6.7 (6.4-8.2) gm/dl Albumin 3.7 (3.4-5.0) gm/dl Globulin 3.0 (2.5-4.0) gm/dl Albumin/Globulin Ratio 1.2 (0.9-2) Blood Type Antibody Screen Crossmatch 12/03/18 12/03/18 Range/Units 07:21 07:31 WBC (4.8-10.8) K/uL RBC (4.7-6.1) M/uL Hgb (14.0-18.0) g/dL POC Hgb 9.5 L (14.0-18.0) g/dl Hct (42-52) % POC Hct 28 L (42-52) % MCV (80-100) fL MCH (25-34) pg MCHC (32-36) g/dL RDW Std Deviation (36.4-46.3) fL RDW Coeff of Erendira (11.5-14.5) % Plt Count (130-400) K/uL MPV (7.4-10.4) fL Immature Gran % (Auto) % Neut % (Auto) % Lymph % (Auto) % Furn[place] % (Auto) % Eos % (Auto) % Baso % (Auto) % Immature Gran # (Auto) (0.00-0.02) K/uL Neut # (Auto) (1.4-6.5) K/uL Lymph # (Auto) (1.2-3.4) K/uL Furn[place] # (Auto) (0.11-0.59) K/uL Eos # (Auto) (0-0.5) K/uL Baso # (Auto) (0-0.2) K/uL PT (9.0-12.0) Seconds INR (0.9-1.1) APTT (21.0-31.0) Seconds PTT Ratio POC Sodium 138 (135-144) mEq/L Sodium (136-145) mmol/L POC Potassium 3.8 (3.3-5.0) mEq/L Potassium (3.5-5.1) mmol/L POC Chloride 100 L (101-112) mEq/L Chloride (98-107) mmol/L Carbon Dioxide (21-32) mmol/L POC Total CO2 26 (24-31) mEq/l Anion Gap (3-11) POC Anion Gap 18.0 (16-25) mmol/L POC BUN 28 H (7-18) mg/dl BUN (7-18) mg/dl Creatinine (0.6-1.4) mg/dl POC Creatinine 0.9 (0.6-1.3) mg/dl Est Cr Clr Drug Dosing ml/min Est GFR ( Amer) Est GFR (Non-Af Amer) BUN/Creatinine Ratio (10-20) Glucose (70-99) mg/dl POC Glucose (other) 180 H (70-99) mg/dl Calcium (8.5-10.1) mg/dl POC Ioniz Calcium Windy 1.15 (1.12-1.32) mmol/l Total Bilirubin (0.2-1) mg/dl AST (15-37) U/L ALT (12-78) U/L Alkaline Phosphatase (45-117) U/L Total Creatine Kinase (39-308) U/L CK-MB (CK-2) (0.5-3.6) ng/ml CK/CKMB % Calc (0-3.0) Troponin I (0-0.045) ng/ml Total Protein (6.4-8.2) gm/dl Albumin (3.4-5.0) gm/dl Globulin (2.5-4.0) gm/dl Albumin/Globulin Ratio (0.9-2) Blood Type O Negative Antibody Screen NEGATIVE Crossmatch See Detail Imaging Data Radiologist's Impression: Radiology results as stated below per my review and the radiologist's interpretation: CT abd pelvis IV con only CT DOSE: 495.47 mGy.cm HISTORY: Pt c/o GI bleed TECHNIQUE: Multiaxial CT images of the abdomen and pelvis were performed followi ng the use of intravenous contrast. A dose lowering technique was utilized adhering to the principles of ALARA. COMPARISON STUDY: None. FINDINGS: The lung bases are clear. The liver, spleen, gallbladder, pancreas, kidneys, and adrenal glands are within normal limits. No bowel wall thickening or obstruction. The pelvic organs are unremarkable. No suspicious lytic or blastic osseous lesions. IMPRESSION: No significant abnormality identified within the abdomen or pelvis. The above report was generated using voice recognition software. It may contain grammatical, syntax or spelling errors. Electronically signed by: Elvis Knowles M.D. 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 The patient was typed and screened for 1 unit of packed red blood cells. He did receive 1 crossed unit. The patient did sign the consent for blood transfusion and was placed on the chart. He was placed on a Protonix bolus and drip. He does have an abnormal EKG compared to previous therefore the patient was discussed with cardiology. He was admitted to the hospitalist service. Patient was in agreement with the treatment plan. Impression & Plan GI bleed, Abnormal EKG, Anemia Critical Care Time Critical Care Time: Yes Total Critical Care Time: 90 I have personally spent 90 minutes of critical care time in the direct management of this patient. This includes bedside care, interpretation of diagnostic studies, and testing, discussion with consultants, patient, and family members, and other required patient management activities. This 90 minutes is in excess of all separately billable procedures. Discharge Plan Visit Data *Final* Discharge Date/Time: 12/03/18 12:16 Chief Complaint: Rectal Bleed Stated Complaint: BLOOD WHEN GOING TO THE BATHROOM ED Provider: Wilmer Nayak Discharge Problem: GI bleed, Abnormal EKG, Anemia Patient Disposition: Admitted As Inpatient Discharge Instructions Interventions: ED Discharge Assessment Last Done: 12/03/18 12:16 Discharge Problem: GI bleed Qualifiers: GI bleed type/associated pathology: unspecified gastrointestinal hemorrhage type Qualified Code(s): K92.2 - Gastrointestinal hemorrhage, unspecified Anemia Qualifiers: Anemia type: unspecified type Qualified Code(s): D64.9 - Anemia, unspecified The scribe's documentation has been prepared under my direction and personally reviewed by me in its entirety. I confirm that the note above accurately reflects all work, treatment, procedures, and medical decision making performed by me.
[2018-12-04] MEDS: INSULIN ASPART 100 UNITS/ML 3 ML PEN SC SCH ×5 (00:47→21:24)
[2018-12-04] MEDS: PANTOprazole 40 MG in DEXTROSE 5% 100 ML IV SCH ×4 (04:35→21:25)
[2018-12-04] MEDS: SODIUM CHLORIDE 0.9% 1000ML 1,000 ML IV SCH ×2 (05:35→15:24)
[2018-12-04 07:13] LABS: Hematocrit (blood only) 18.9 % (42-52); Hemoglobin 6.1 g/dL (14.0-18.0); Mean Corpuscular Hemoglobin 25.7 pg (25-34); Mean Corpuscular Hgb Conc 32.3 g/dL (32-36); Mean Corpuscular Volume 79.7 fL (80-100); Mean Platelet Volume 9.3 fL (7.4-10.4); Platelet Count 134 K/uL (130-400); RDW Coefficient of Variation 14.8 % (11.5-14.5); RDW Standard Deviation 42.5 fL (36.4-46.3); Red Blood Count 2.37 M/uL (4.7-6.1); White Blood Count 3.99 K/uL (4.8-10.8)
[2018-12-04] MEDS ORDERED: SODIUM CHLORIDE 0.9% 250 ML IV PRN ×2 (07:31→20:54)
[2018-12-04 07:45] LABS: BUN Creatinine Ratio 25.7 (10-20); Calcium 7.7 mg/dl (8.5-10.1); Creatinine Clr Calc Pharmacy 96.4 ml/min; Est GFR (Non-African American) 89.8; Potassium 3.9 mmol/L (3.5-5.1)
--- NOTE | 2018-12-04 10:38 | History & Physical Bridge Note ---
Date of Service December 04, 2018 History & Physical Bridge Note I have examined the patient, reviewed the History & Physical and in the interval since the performance of the History & Physical I have noted the following changes of clinical significance: no changes noted Pt had bloody BMs again last night and this AM. Hgb down to 6.1 today. Receiving 1st unit of PRBC transfusion now. He denies any CP,SOB, abd pain, n/v. Had been NPO for EGD today Chart reviewed. Exam: - AAOx3, in NAD - CTA bilaterally - HRR - Abd soft, non tender, BS hypoactive - No edema on legs - Slightly pallor appearing. He is going to be transferred down to [facility] soon for EGD. He will continue to receive blood transfusion. Will monitor blood ct and GI to give further recs after EGD is completed. Supervising Physician Co-Signing Physician Notes Pt seen and examined with SERGIO Sol. Her note reflects my exam and findings. I agree with her impression and plan. H/H dropped overnight. Transfuse as need be and will proceed with EGD. Austin Orantes M.D.
--- NOTE | 2018-12-04 12:38 | Anesthesiology Consultation ---
Date of Service December 04, 2018 Assessment & Plan Chart Review Chart Review: Acceptable Risk for Surgery and Patient NOT seen in Pre Admission Testing Consults Requested none ASA ASA4 Proposed Anesthesia Anesthesia Type: MAC Risk / Benefits Reviewed With: PT / POA / Parent / Guardian, Accepts Plan and Informed Consent Obtained History Surgery Operation Date: 12/04/18 09:00 Proposed Procedures p Esophagogastroduodenoscopy Dr Lamberto Orantes Height/Weight Height: 5 ft 10 in Weight: 89.6 kg Allergies Allergy/AdvReac Type Severity Reaction Status Date / Time No Known Allergies Allergy Unverified 12/03/18 07:23 Medications Home Medications Medication Instructions Recorded Confirmed Last Taken aspirin [Aspir-81] 81 mg PO DAILY 12/03/18 12/03/18 12/02/18 atorvastatin 40 mg PO HS 12/03/18 12/03/18 12/02/18 cholecalciferol (vitamin D3) 1,000 unit PO QAM 12/03/18 12/03/18 12/02/18 glimepiride 2 mg PO HS 12/03/18 12/03/18 12/02/18 lisinopril-hydrochlorothiazide 1 tab PO QAM 12/03/18 12/03/18 12/02/18 metformin 1,000 mg PO BID 12/03/18 12/03/18 12/02/18 omega-3 fatty acids 1,000 mg PO QAM 12/03/18 12/03/18 Unknown sitagliptin 100 mg PO QAM 12/03/18 12/03/18 12/02/18 Active Medications Generic Name Dose Route Start Last Admin Trade Name Devinq PRN Reason Stop Dose Admin Pantoprazole Sodium 40 mg/ 100 mls @ 20 mls/hr 12/03/18 09:00 12/04/18 09:57 Dextrose IV 01/02/19 08:59 20 mls/hr Q5H ALIX Administration Sodium Chloride 1,000 mls @ 125 mls/hr 12/03/18 12:52 12/04/18 07:56 Nss 1000ml IV 01/02/19 12:51 0 mls/hr .Q8H ALIX Infusion Insulin Aspart 0 units 12/03/18 13:00 12/04/18 05:42 Novolog Flexpen SC 01/02/19 12:59 Not Given Q6 ALIX NPO Date Last Intake of Fluids: 12/03/18 Time Last Intake of Fluids: 23:55 Date Last Intake of Solids: 12/03/18 Time Last Intake of Solids: 05:00 Past Medical History Medical History Aortic valve sclerosis (Chronic) Diabetes mellitus, type II (Chronic) Dyslipidemia (Chronic) HTN (hypertension) (Chronic) No significant past medical history Exercise / Class Metabolic Activity III < 4 Walking/Shop/Light housework Past Family History Family History Father Bladder cancer Diabetes Mother Diabetes Past Surgical History Surgical History History of colonoscopy (Chronic) 10/2010 colonoscopy: Sigmoid diverticulosis Past Anesthesia History No Hx of Anesthesia Complications and No Family Hx of Anesthesia Complications History of PONV No Hx of PONV and No Hx of Motion Sickness Social History Smoking Status: Current some day smoker tobacco type: cigars Smoking cigarettes per day: 1 Do You Dip or Chew Tobacco: No Hx Alcohol Use: No Hx Substance Use: No substance use type: does not use Physical Exam Vital Signs Last Vital Signs Temp 36.4 C L 12/04/18 12:06 Pulse 75 12/04/18 12:06 Resp 18 12/04/18 12:06 BP 179/90 H 12/04/18 12:06 Pulse Ox 98 12/04/18 12:06 Constitutional + obese ENMT Mouth: + dentition abnormality and + poor dentition Thyromental Distance: > or= 3.5 Finger Breadths Mallampati Class: II Neck normal visual inspection and trachea midline; neck extension not limited Respiratory normal respiratory effort Auscultation: lungs clear to auscultation bilaterally Cardiovascular Rate/Rhythm: regular rate and regular rhythm Heart Sounds: no murmur Vessels: no carotid bruit Musculoskeletal Spine: normal cervical ROM Neurologic moves all extremities Motor/Sensory: no sensory deficit Psychiatric Orientation: alert and oriented x 3 Testing Laboratory Results 12/04/18 06:23 12/04/18 06:23 PT 10.9 Seconds (9.0-12.0) 12/03/18 07:21 INR 1.1 (0.9-1.1) 12/03/18 07:21 APTT 22.6 Seconds (21.0-31.0) 12/03/18 07:21 Blood Type O Negative 12/03/18 07:21 Antibody Screen NEGATIVE 12/03/18 07:21 12/03/18 11:30 Escherichia coli Shiga Toxins Test - Preliminary Stool Stool Culture - Preliminary No Salmonella isolated to date, No Shigella isolated to date, No Campylobacter jejuni isolated to date. 12/04/18 05:39 POC Glucose 160 H Electrocardiogram Date: 12/04/18 Findings: + NSR @ (at 72;LAD;ILBBB;LVH;T wave abnormality)
[2018-12-04] MEDS ORDERED: ATROPINE SULFATE 0.1 MG/ML 10ML SYR IV PRN (12:41)
[2018-12-04] MEDS ORDERED: ePHEDrine sulfate 50 MG/ML AMP IV PRN (12:41)
--- NOTE | 2018-12-04 13:00 | GI REPORT ---
Patient Name: Russ Love Procedure Date: 12/04/2018 12:35 PM Date of : 1940 Admit Type: Inpatient Age: 78 Gender: Male Attending MD: Austin Orantes MD Procedure: Upper GI endoscopy Providers: Austin Orantes MD Referring MD: Diallo Hudson Md Indications: Acute post hemorrhagic anemia, Hematochezia Medicines: See the Anesthesia note for documentation of the administered medications Complications: No immediate complications. Estimated Blood Loss: Estimated blood loss: none. Procedure: Pre-Anesthesia Assessment: - Prior to the procedure, a History and Physical was performed, and patient medications, allergies and sensitivities were reviewed. The patient's tolerance of previous anesthesia was reviewed. - The risks and benefits of the procedure and the sedation options and risks were discussed with the patient. All questions were answered and informed consent was obtained. - Patient identification and proposed procedure were verified prior to the procedure by the physician and the nurse. The procedure was verified in the pre-procedure area. - Pre-procedure physical examination revealed no contraindications to sedation. - After reviewing the risks and benefits, the patient was deemed in satisfactory condition to undergo the procedure. After obtaining informed consent, the endoscope was passed under direct vision. Throughout the procedure, the patient's blood pressure, pulse, and oxygen saturations were monitored continuously. The Endoscope was introduced through the mouth, and advanced to the third part of duodenum. The upper GI endoscopy was accomplished without difficulty. The patient tolerated the procedure well. Findings: The esophagus was normal. The stomach was normal. Patchy mildly erythematous mucosa without active bleeding and with no stigmata of bleeding was found in the duodenal bulb. The cardia and gastric fundus were normal on retroflexion. Impression: - Normal esophagus. - Normal stomach. - Erythematous duodenopathy. - No bleeding seen. - No specimens collected. - Possible diverticular bleed. Recommendation: - Return patient [facility] for [facility] care. Austin Orantes M.D. Austin Orantes MD 12/04/2018 1:00:16 PM This report has been signed electronically. Note Initiated On: 12/04/2018 12:35 PM Number of Addenda: 0 I attest to the content of the Intraoperative Record and orders documented therein, exceptions below {[id number]}
[2018-12-04] MEDS ORDERED: PROPOFOL IV EMULSION 10 MG/ML 20 ML VIAL IV ONE (13:05)
[2018-12-04] MEDS ORDERED: LIDOCAINE HCL 2% 2 ML VIAL/AMP(20MG/ML) INFIL ONE (13:05)
--- NOTE | 2018-12-04 13:22 | Anesthesiology Progress Note ---
Date of Service December 04, 2018 Anesthesia Post Procedure Vital Signs Vital Signs: Temp Pulse Pulse Pulse Resp BP BP 12/04/18 12:06 36.4 C L 75 18 179/90 H 12/04/18 11:50 36.5 C 77 18 155/77 H 12/04/18 11:25 36.4 C L 73 20 150/99 H 12/04/18 11:10 36.4 C L 75 18 179/90 H 12/04/18 11:06 36.7 C 75 18 127/76 12/04/18 10:26 72 20 158/80 H 12/04/18 10:00 77 13 12/04/18 09:45 67 17 12/04/18 09:30 69 11 L 12/04/18 09:15 71 3 L 12/04/18 09:00 78 9 L 12/04/18 08:45 70 10 L 12/04/18 08:35 69 12/04/18 08:30 73 11 L 12/04/18 08:26 36.8 C 94 H 20 121/76 12/04/18 08:15 78 7 L 12/04/18 08:11 36.7 C 74 16 145/90 H 12/04/18 08:00 69 15 12/04/18 07:52 36.9 C 76 18 151/72 H 12/04/18 07:45 72 6 L 12/04/18 07:41 36.7 C 75 19 12/04/18 07:30 71 17 12/04/18 07:15 66 13 12/04/18 07:00 67 7 L 12/04/18 06:45 68 13 12/04/18 06:30 83 21 12/04/18 06:15 71 9 L 12/04/18 06:00 67 4 L 12/04/18 05:45 66 13 12/04/18 05:30 66 13 12/04/18 05:15 76 9 L 12/04/18 05:00 69 8 L 12/04/18 04:45 68 9 L 12/04/18 04:32 36.3 C L 82 18 12/04/18 04:30 79 13 12/04/18 04:15 80 17 12/04/18 04:00 81 16 12/04/18 03:45 105 H 11 L 12/04/18 03:30 75 4 L 12/04/18 03:15 75 12/04/18 03:00 74 0 L 12/04/18 02:45 71 0 L 12/04/18 02:30 72 0 L 12/04/18 02:15 70 11 L 12/04/18 02:00 74 14 12/04/18 01:45 67 13 12/04/18 01:30 72 1 L 12/04/18 01:15 70 0 L 12/04/18 01:00 77 2 L 12/04/18 00:45 69 7 L 12/04/18 00:34 69 12/04/18 00:30 76 16 12/04/18 00:15 76 10 L 12/04/18 00:00 74 5 L 12/03/18 23:45 95 H 16 12/03/18 23:30 68 15 12/03/18 23:15 71 11 L 12/03/18 23:00 71 15 12/03/18 22:58 36.5 C 91 H 20 12/03/18 22:45 67 15 12/03/18 22:30 73 0 L 12/03/18 22:15 68 13 12/03/18 22:00 67 12 12/03/18 21:45 69 16 12/03/18 19:09 36.7 C 82 20 12/03/18 16:46 67 12/03/18 16:06 36.7 C 70 20 12/03/18 15:45 36.7 C 69 20 BP Pulse Ox 12/04/18 12:06 98 12/04/18 11:50 97 12/04/18 11:25 99 12/04/18 11:10 98 12/04/18 11:06 12/04/18 10:26 98 12/04/18 10:00 12/04/18 09:45 12/04/18 09:30 12/04/18 09:15 12/04/18 09:00 12/04/18 08:45 12/04/18 08:35 142/87 H 96 12/04/18 08:30 12/04/18 08:26 12/04/18 08:15 12/04/18 08:11 97 12/04/18 08:00 12/04/18 07:52 12/04/18 07:45 12/04/18 07:41 131/70 97 12/04/18 07:30 12/04/18 07:15 12/04/18 07:00 12/04/18 06:45 12/04/18 06:30 12/04/18 06:15 12/04/18 06:00 12/04/18 05:45 12/04/18 05:30 12/04/18 05:15 12/04/18 05:00 12/04/18 04:45 12/04/18 04:32 120/58 L 98 12/04/18 04:30 12/04/18 04:15 12/04/18 04:00 12/04/18 03:45 12/04/18 03:30 12/04/18 03:15 12/04/18 03:00 12/04/18 02:45 12/04/18 02:30 12/04/18 02:15 12/04/18 02:00 12/04/18 01:45 12/04/18 01:30 12/04/18 01:15 12/04/18 01:00 12/04/18 00:45 12/04/18 00:34 12/04/18 00:30 12/04/18 00:15 12/04/18 00:00 12/03/18 23:45 12/03/18 23:30 12/03/18 23:15 12/03/18 23:00 12/03/18 22:58 98 12/03/18 22:45 12/03/18 22:30 12/03/18 22:15 12/03/18 22:00 12/03/18 21:45 12/03/18 19:09 118/66 98 12/03/18 16:46 12/03/18 16:06 126/70 99 12/03/18 15:45 129/73 99 Transfer of Care Handoff Completed per policy Notes Mental Status: alert / awake / arousable Patient Amnestic to Procedure: Yes Nausea / Vomiting: adequately controlled Pain: adequately controlled Airway Patency, RR, SpO2: stable & adequate BP & HR: stable & adequate Hydration State: stable & adequate Anesthetic Complications: no major complications apparent
[2018-12-04 14:03] LABS: Hematocrit (blood only) 27.1 % (42-52); Hemoglobin 8.7 g/dL (14.0-18.0)
--- NOTE | 2018-12-04 14:13 | Hospitalist Progress Note ---
Date of Service December 04, 2018 Assessment & Plan (1) GI bleed: Patient is a 78 yr male with H/O HTN, dyslipidemia, DM II, aortic sclerosis presented with c/o rectal bleeding x 1 day. Acute GI bleeding Acute blood loss anemia CT ABD/PELVIS: No significant abnormality identified within the abdomen or pelvis. Likely diverticular bleed S/P EGD: Normal esophagus, normal stomach, erythematous adenopathy, no bleeding seen. No specimens collected. Possible diverticular bleed S/P 2 units PRBCs Continue Protonix ggt Received IV fluids Appreciate GI help Clear liquid diet for now Monitor H&H Transfuse PRBCs as needed Hold aspirin for now (2) Abnormal EKG: EKG with left axis deviation. no significant changes from prior EKG Shortness of breath, chest pain Troponin X 2: negative ECHO: Mild concentric LVH, left ventricular systolic function is normal. Ejection fraction 60 to 65%. Right ventricle systolic function is normal. Left atrial size is normal. Right atrial size is normal. Aortic wall sclerosis moderate, without significant aortic valvular stenosis Appreciate Cardiology Input (3) Diabetes mellitus, type II: A1c: 6.9 on 11/18/18 Hold metformin, glimepiride, Januvia Novolog sliding scale per protocol (4) HTN (hypertension): Blood pressure is relatively low on presentation Currently blood pressures stable Resume lisinopril Hold hydrochlorothiazide for now Monitor (5) Dyslipidemia: Resume statin as able DVT Px: SCDs Re: GI bleeding Code Status Full Code Disposition: Follows with Dr Flores for routine care Subjective Patient is seen and examined at bedside Reports having bloody bowel movements overnight and earlier this morning Had EGD today Hemoglobin dropped to 6.1 today Plan to give 2 units of PRBCs Denies any nausea, vomiting, abdominal pain, chest pain, shortness of breath, dizziness. Offers no other complaints Review of Systems Review of Systems: All systems reviewed & are unremarkable except as noted in HPI & below Physical Exam Physical Exam: Physical Exam: Vitals signs as noted above General Appearance:Moderately built and nourished, no apparent distress Head: normocephalic, Atraumatic Eyes: normal inspection, EOMI Neck: supple, Trachea midline Respiratory/Chest: Normal breath sounds, CTA Cardiovascular: S1, S2, No murmur Abdomen/GI:Soft, Non tender, Bowel sounds present Extremities/Musculoskelatal:normal inspection, no edema Neurologic/Psych:AAOX3, grossly no focal neurological deficits Skin: normal color, warm Results & Data Vital Signs (Past 12 Hours) Vital Signs Temp Pulse Pulse Pulse Resp BP BP 12/04/18 13:40 36.5 C 76 18 151/74 H 12/04/18 13:31 66 18 134/81 12/04/18 13:16 67 16 128/71 12/04/18 13:01 80 16 126/55 L 12/04/18 12:06 36.4 C L 75 18 179/90 H 12/04/18 11:50 36.5 C 77 18 155/77 H 12/04/18 11:25 36.4 C L 73 20 150/99 H 12/04/18 11:10 36.4 C L 75 18 179/90 H 12/04/18 11:06 36.7 C 75 18 127/76 12/04/18 10:26 72 20 158/80 H 12/04/18 10:00 77 13 12/04/18 09:45 67 17 12/04/18 09:30 69 11 L 12/04/18 09:15 71 3 L 12/04/18 09:00 78 9 L 12/04/18 08:45 70 10 L 12/04/18 08:35 69 12/04/18 08:30 73 11 L 12/04/18 08:26 36.8 C 94 H 20 121/76 12/04/18 08:15 78 7 L 12/04/18 08:11 36.7 C 74 16 145/90 H 12/04/18 08:00 69 15 12/04/18 07:52 36.9 C 76 18 151/72 H 12/04/18 07:45 72 6 L 12/04/18 07:41 36.7 C 75 19 12/04/18 07:30 71 17 12/04/18 07:15 66 13 12/04/18 07:00 67 7 L 12/04/18 06:45 68 13 12/04/18 06:30 83 21 12/04/18 06:15 71 9 L 12/04/18 06:00 67 4 L 12/04/18 05:45 66 13 12/04/18 05:30 66 13 12/04/18 05:15 76 9 L 12/04/18 05:00 69 8 L 12/04/18 04:45 68 9 L 12/04/18 04:32 36.3 C L 82 18 12/04/18 04:30 79 13 12/04/18 04:15 80 17 12/04/18 04:00 81 16 12/04/18 03:45 105 H 11 L 12/04/18 03:30 75 4 L 12/04/18 03:15 75 12/04/18 03:00 74 0 L 12/04/18 02:45 71 0 L 12/04/18 02:30 72 0 L 12/04/18 02:15 70 11 L BP Pulse Ox 12/04/18 13:40 98 12/04/18 13:31 99 12/04/18 13:16 99 12/04/18 13:01 98 12/04/18 12:06 98 12/04/18 11:50 97 12/04/18 11:25 99 12/04/18 11:10 98 12/04/18 11:06 12/04/18 10:26 98 12/04/18 10:00 12/04/18 09:45 12/04/18 09:30 12/04/18 09:15 12/04/18 09:00 12/04/18 08:45 12/04/18 08:35 142/87 H 96 12/04/18 08:30 12/04/18 08:26 12/04/18 08:15 12/04/18 08:11 97 12/04/18 08:00 12/04/18 07:52 12/04/18 07:45 12/04/18 07:41 131/70 97 12/04/18 07:30 12/04/18 07:15 12/04/18 07:00 12/04/18 06:45 12/04/18 06:30 12/04/18 06:15 12/04/18 06:00 12/04/18 05:45 12/04/18 05:30 12/04/18 05:15 12/04/18 05:00 12/04/18 04:45 12/04/18 04:32 120/58 L 98 12/04/18 04:30 12/04/18 04:15 12/04/18 04:00 12/04/18 03:45 12/04/18 03:30 12/04/18 03:15 12/04/18 03:00 12/04/18 02:45 12/04/18 02:30 12/04/18 02:15 Laboratory Results Short CBC 12/04/18 12/04/18 Range/Units 06:23 13:53 WBC 3.99 L (4.8-10.8) K/uL Hgb 6.1 L* 8.7 L (14.0-18.0) g/dL Hct 18.9 L* 27.1 L (42-52) % Plt Count 134 (130-400) K/uL BMP 12/04/18 06:23 Sodium 142 Potassium 3.9 Chloride 111 H Carbon Dioxide 25 BUN 18 Creatinine 0.70 Glucose 144 H Calcium 7.7 L
[2018-12-04] MEDS ORDERED: Nursing to Pharmacy Communication ONE (16:05)
[2018-12-04] MEDS: lisinopriL 10 MG TAB PO SCH (17:39)
[2018-12-04 20:47] LABS: Hematocrit (blood only) 20.2 % (42-52); Hemoglobin 6.9 g/dL (14.0-18.0)
[2018-12-05] MEDS: PANTOprazole 40 MG in DEXTROSE 5% 100 ML IV SCH ×5 (02:47→20:54)
[2018-12-05 05:54] LABS: Hematocrit (blood only) 24.2 % (42-52); Mean Corpuscular Hemoglobin 27.7 pg (25-34); Mean Corpuscular Hgb Conc 33.1 g/dL (32-36); Mean Corpuscular Volume 83.7 fL (80-100); Platelet Count 125 K/uL (130-400); RDW Coefficient of Variation 15.3 % (11.5-14.5); RDW Standard Deviation 47.2 fL (36.4-46.3); Red Blood Count 2.89 M/uL (4.7-6.1); White Blood Count 5.27 K/uL (4.8-10.8)
[2018-12-05 06:21] LABS: BUN Creatinine Ratio 15.2 (10-20); Calcium 7.6 mg/dl (8.5-10.1); Creatinine Clr Calc Pharmacy 81.3 ml/min; Est GFR (Non-African American) 83.7; Magnesium 1.6 mg/dl (1.8-2.4); Potassium 3.7 mmol/L (3.5-5.1)
[2018-12-05] MEDS ORDERED: CALCIUM GLUCONATE 10% 10 ML VIAL IV STA (07:54)
[2018-12-05] MEDS ORDERED: MAGNESIUM SULFATE / D5W 1 GM/100 ML BAG IV ONE (07:56)
[2018-12-05] MEDS ORDERED: CALCIUM GLUCONATE 10% 1,000 MG in SODIUM CHLORIDE 0.9% 50 ML IV ONE (08:00)
[2018-12-05] MEDS: lisinopriL 10 MG TAB PO SCH (09:04)
[2018-12-05] MEDS: INSULIN ASPART 100 UNITS/ML 3 ML PEN SC SCH ×4 (09:05→20:51)
[2018-12-05] MEDS: SODIUM CHLORIDE 0.9% 1000ML 1,000 ML IV SCH (09:07)
[2018-12-05] MEDS: CHOLECALCIFEROL 1,000 UNITS TAB PO SCH (09:23)
--- NOTE | 2018-12-05 09:23 | Hospitalist Progress Note ---
Date of Service December 05, 2018 Assessment & Plan (1) Acute blood loss anemia: (2) GI bleed: -Hospital day 3 -Patient presented with rectal bleeding x1 day -CT ABD/pelvis on admission negative for acute findings -S/P EGD 12/04:Normal esophagus, normal stomach, erythematous adenopathy, no b leeding seen. No specimens collected. -Suspect diverticular bleeding -Hgb 8.8 -> 6.1 -> 8.7 -> 6.9 -> 8.0 this morning -S/P 4 units PRBCs thus far -Continue serial H&H -Continue Protonix drip -Continue to hold aspirin -GI consult, input appreciated (3) Decreased breath sounds: -Has some diminished breath sounds on exam -Suspect atelectasis -Start incentive spirometer (4) Hypocalcemia: (5) Vitamin D deficiency: -Calcium 7.6, ionized 1.08, vitamin D 27.6 -Albumin normal on admission -Hypocalcemia likely secondary to vitamin D deficiency -Replace calcium, start vitamin D replacement (6) Abnormal EKG: -EKG with left axis deviation, no significant changes from prior EKG -Asymptomatic -Troponins negative x2 -ECHO: Mild concentric LVH, left ventricular systolic function is normal. Ejection fraction 60 to 65%. Right ventricle systolic function is normal. Left atrial size is normal. Right atrial size is normal. Aortic wall sclerosis moderate, without significant aortic valvular stenosis -Cardiology consulted, input appreciated (7) Diabetes mellitus, type II: -HgbA1c 6.9 on 11/18/18 -Hold metformin, glimepiride, Januvia -Novolog sliding scale per protocol while hospitalized (8) HTN (hypertension): -BP initially low on presentation, now improved -On lisinopril -Holding HCTZ for now (9) Dyslipidemia: -Resume statin as able (10) DVT prophylaxis: -SCDs due to GI bleeding Supervising Physician Co-Signing Physician Notes Patient is seen and examined at bedside. Had minimal blood in stool earlier this morning. Received 2 units of PRBCs overnight. Denies any abdominal pain, nausea, vomiting, chest pain, shortness of breath. On exam patient is moderately built and nourished, no apparent distress, normocephalic atraumatic, lungs are clear to auscultation, abdomen soft nontender, grossly no focal neurological deficits, no pedal edema. Continue Protonix drip, monitor H&H, transfuse PRBCs as needed. Continue to hold aspirin. Agree with replacing electrolytes for hypocalcemia, hypomagnesemia. Clear liquid diet for now. I personally reviewed the record. Patient is interviewed and examined at bedside. Patient's care is coordinated with La Walsh [employer]. Please refer to the documentation above for details of patient's presentation and for discussion of other issues. Subjective Patient seen and examined. Resting in bed, no acute distress. No further rectal bleeding since last evening. Tolerated clear liquid diet this morning. Denies abdominal pain, nausea, vomiting. Had some dizziness yesterday with standing. No syncopal event. Has not been out of bed yet today. Denies chest pain and shortness of breath. Review of Systems Review of Systems: All systems reviewed & are unremarkable except as noted in HPI & below Physical Exam Constitutional: no acute distress Resting in bed Respiratory: normal respiratory effort; no respiratory distress Auscultation: + diminished lung sounds Cardiovascular: Rate/Rhythm: regular rate and regular rhythm Vessels: normal peripheral pulses Extremities: no edema Gastrointestinal (Abdomen): Inspection/Auscultation: normal bowel sounds Percussion/Palpation: abdomen soft; abdomen nontender Psychiatric: A+Ox3, euthymic affect Results & Data Vital Signs (Past 12 Hours) Vital Signs Temp Pulse Pulse Resp BP BP Pulse Ox 12/05/18 08:00 36.7 C 72 16 153/57 H 97 12/05/18 04:08 67 12/05/18 03:51 36.5 C 69 18 153/65 H 100 12/05/18 02:48 36.7 C 68 18 153/73 H 97 12/05/18 01:49 36.3 C L 70 18 126/71 98 12/05/18 01:19 36.7 C 68 18 128/66 99 12/05/18 01:04 36.7 C 65 18 142/68 H 98 12/05/18 00:48 36.8 C 76 18 125/68 98 12/05/18 00:29 36.8 C 76 18 125/68 98 12/04/18 23:30 36.8 C 68 18 127/63 98 12/04/18 23:00 36.7 C 70 18 127/66 98 12/04/18 22:30 36.8 C 64 18 130/67 98 12/04/18 22:15 36.7 C 69 18 120/60 96 12/04/18 21:57 36.7 C 69 18 122/62 99 Laboratory Results Short CBC 12/04/18 12/04/18 12/05/18 Range/Units 13:53 20:07 05:42 WBC 5.27 (4.8-10.8) K/uL Hgb 8.7 L 6.9 L* 8.0 L (14.0-18.0) g/dL Hct 27.1 L 20.2 L* 24.2 L (42-52) % Plt Count 125 L (130-400) K/uL BMP 12/05/18 05:42 Sodium 142 Potassium 3.7 Chloride 112 H Carbon Dioxide 26 BUN 13 Creatinine 0.83 Glucose 134 H Calcium 7.6 L
[2018-12-05 14:20] LABS: Hematocrit (blood only) 24.9 % (42-52); Hemoglobin 8.1 g/dL (14.0-18.0)
[2018-12-05 20:09] LABS: Hematocrit (blood only) 22.7 % (42-52); Hemoglobin 7.6 g/dL (14.0-18.0)
[2018-12-06 00:57] LABS: Hematocrit (blood only) 22.9 % (42-52); Hemoglobin 7.5 g/dL (14.0-18.0)
[2018-12-06] MEDS: PANTOprazole 40 MG in DEXTROSE 5% 100 ML IV SCH ×2 (01:52→07:08)
[2018-12-06 07:03] LABS: Hematocrit (blood only) 21.9 % (42-52); Hemoglobin 7.6 g/dL (14.0-18.0); Mean Corpuscular Hemoglobin 28.7 pg (25-34); Mean Corpuscular Hgb Conc 34.7 g/dL (32-36); Mean Corpuscular Volume 82.6 fL (80-100); Mean Platelet Volume 9.1 fL (7.4-10.4); Platelet Count 129 K/uL (130-400); RDW Coefficient of Variation 15.5 % (11.5-14.5); RDW Standard Deviation 46.5 fL (36.4-46.3); Red Blood Count 2.65 M/uL (4.7-6.1); White Blood Count 4.38 K/uL (4.8-10.8)
[2018-12-06 07:29] LABS: BUN Creatinine Ratio 11.4 (10-20); Calcium 7.9 mg/dl (8.5-10.1); Creatinine Clr Calc Pharmacy 79.6 ml/min; Est GFR (African American) 96.5; Est GFR (Non-African American) 83.3; Magnesium 1.8 mg/dl (1.8-2.4); Potassium 3.5 mmol/L (3.5-5.1)
[2018-12-06] MEDS: INSULIN ASPART 100 UNITS/ML 3 ML PEN SC SCH ×4 (09:05→20:28)
[2018-12-06] MEDS: CHOLECALCIFEROL 1,000 UNITS TAB PO SCH (09:06)
[2018-12-06] MEDS: lisinopriL 10 MG TAB PO SCH (09:06)
--- NOTE | 2018-12-06 11:05 | Gastroenterology Progress Note ---
Date of Service December 06, 2018 Assessment & Plan (1) GI bleed: GI bleed presentation given his normal EGD would suggest a diverticular origin, or a self-limited one, without ongoing acute signs of active blood loss. He would like to eat, given his appearance today, acute endoscopy does not seem to be warranted, I would advance his diet today and we will evaluate him tomorrow, but tentatively would plan on colonoscopy on Saturday. Assuming continued clinical stability. If symptoms change, or clinical status change please contact. Subjective Patient is without complaints today, he feels fantastic, he has no evident since yesterday morning of GI bleeding. His blood count did trickle down from repetitive draws as well as IV fluids. He is not eating a diet. He states 2 days ago he was weak when he woke up and walked around, but now he feels nearly back to normal and is without complaint. Review of Systems Review of Systems: All systems reviewed & are unremarkable except as noted in HPI & below Physical Exam Constitutional: WD/WN, vitals as above Cardiovascular: RRR, no murmur, no edema Gastrointestinal (Abdomen): normal bowel sounds, soft, nontender, no hepatosplenomegaly Results & Data Vital Signs (Past 12 Hours) Vital Signs Temp Pulse Pulse Resp BP BP Pulse Ox 12/06/18 07:53 36.9 C 63 20 145/60 H 96 12/06/18 02:53 36.8 C 82 19 161/81 H 98 12/06/18 01:21 67 12/05/18 23:48 36.5 C 61 19 152/63 H 99 (1) GI bleed GI bleed type/associated pathology: unspecified gastrointestinal hemorrhage type Qualified Code(s): K92.2 - Gastrointestinal hemorrhage, unspecified
[2018-12-06] MEDS: PANTOprazole 40 MG TAB PO SCH ×2 (12:35→20:28)
[2018-12-06 16:11] LABS: Hematocrit (blood only) 23.3 % (42-52); Hemoglobin 7.9 g/dL (14.0-18.0)
--- NOTE | 2018-12-06 16:26 | Hospitalist Progress Note ---
Date of Service December 06, 2018 Assessment & Plan (1) Acute blood loss anemia: (2) GI bleed: Acute GI bleed Acute Blood loss Anemia CT ABD/pelvis on admission negative for acute findings S/P EGD 12/04:Normal esophagus, normal stomach, erythematous adenopathy, no bleeding seen. No specimens collected. Suspect diverticular bleeding Hgb: 7.9 today S/P 4 units PRBCs thus far Monitor H&H iv Protonix drip Transtioned to PO BID Continue to hold aspirin Appreciate GI Input Advance diet today Colonoscopy likely on Saturday (3) Decreased breath sounds: Suspect atelectasis Continue Incentive spirometer (4) Hypocalcemia: (5) Vitamin D deficiency: Calcium 7.6, ionized 1.08, vitamin D 27.6 Hypocalcemia likely secondary to vitamin D deficiency Replace calcium, vitamin D supplements as needed (6) Abnormal EKG: EKG with left axis deviation, no significant changes from prior EKG Asymptomatic Troponins negative x2 ECHO: Mild concentric LVH, left ventricular systolic function is normal. Ejection fraction 60 to 65%. Right ventricle systolic function is normal. Left atrial size is normal. Right atrial size is normal. Aortic wall sclerosis moderate, without significant aortic valvular stenosis Cardiology consulted, input appreciated (7) Diabetes mellitus, type II: HgbA1c 6.9 on 11/18/18 Hold metformin, glimepiride, Januvia Novolog sliding scale per protocol while hospitalized (8) HTN (hypertension): BP improved with IV fluids On lisinopril Holding HCTZ for now (9) Dyslipidemia: Resume statin as able (10) DVT prophylaxis: SCDs due to GI bleeding Code Status Full Code Disposition Expect to discharge home when stable Subjective Patient is seen and examined at bedside No BM/Bleeding today Hemoglobin stable Denies any nausea, vomiting, abdominal pain, chest pain, shortness of breath, dizziness. Offers no other complaints Discussed with GI today Colonoscopy likely on Saturday Review of Systems Review of Systems: All systems reviewed & are unremarkable except as noted in HPI & below Physical Exam Physical Exam: Physical Exam: Vitals signs as noted above General Appearance:Moderately built and nourished, no apparent distress Head: normocephalic, Atraumatic Eyes: normal inspection, EOMI Neck: supple, Trachea midline Respiratory/Chest: Normal breath sounds, CTA Cardiovascular: S1, S2, + murmur Abdomen/GI:Soft, Non tender, Bowel sounds present Extremities/Musculoskelatal:normal inspection, no edema Neurologic/Psych:AAOX3, grossly no focal neurological deficits Skin: normal color, warm Results & Data Vital Signs (Past 12 Hours) Vital Signs Temp Pulse Pulse Resp BP BP Pulse Ox 12/06/18 14:59 36.7 C 57 L 20 126/56 L 98 12/06/18 14:25 97 H 132/59 L 12/06/18 12:00 36.7 C 66 18 172/68 H 98 12/06/18 08:48 81 12/06/18 07:53 36.9 C 63 20 145/60 H 96 Laboratory Results Short CBC 12/05/18 12/06/18 12/06/18 Range/Units 19:59 00:30 06:17 WBC 4.38 L (4.8-10.8) K/uL Hgb 7.6 L 7.5 L 7.6 L (14.0-18.0) g/dL Hct 22.7 L 22.9 L 21.9 L (42-52) % Plt Count 129 L (130-400) K/uL 12/06/18 Range/Units 15:52 WBC (4.8-10.8) K/uL Hgb 7.9 L (14.0-18.0) g/dL Hct 23.3 L (42-52) % Plt Count (130-400) K/uL BMP 12/06/18 06:17 Sodium 141 Potassium 3.5 Chloride 110 H Carbon Dioxide 28 BUN 10 Creatinine 0.84 Glucose 133 H Calcium 7.9 L (1) GI bleed GI bleed type/associated pathology: unspecified gastrointestinal hemorrhage t ype Qualified Code(s): K92.2 - Gastrointestinal hemorrhage, unspecified
[2018-12-06 22:30] LABS: Hematocrit (blood only) 22.2 % (42-52); Hemoglobin 7.5 g/dL (14.0-18.0)
[2018-12-07 06:44] LABS: Hematocrit (blood only) 23.1 % (42-52); Hemoglobin 7.5 g/dL (14.0-18.0)
[2018-12-07 07:21] LABS: BUN Creatinine Ratio 12.5 (10-20); Calcium 8.1 mg/dl (8.5-10.1); Creatinine Clr Calc Pharmacy 68.7 ml/min; Est GFR (African American) 93.8; Est GFR (Non-African American) 80.9; Magnesium 1.8 mg/dl (1.8-2.4); Potassium 3.6 mmol/L (3.5-5.1)
[2018-12-07] MEDS: lisinopriL 10 MG TAB PO SCH (07:57)
[2018-12-07] MEDS: PANTOprazole 40 MG TAB PO SCH ×2 (07:58→20:23)
[2018-12-07] MEDS: CHOLECALCIFEROL 1,000 UNITS TAB PO SCH (07:58)
[2018-12-07] MEDS: INSULIN ASPART 100 UNITS/ML 3 ML PEN SC SCH ×4 (08:33→21:12)
--- NOTE | 2018-12-07 08:55 | Gastroenterology Progress Note ---
Date of Service December 07, 2018 Assessment & Plan (1) GI bleed: GI bleed presentation given his normal EGD would suggest a diverticular origin, or a self-limited one, without ongoing acute signs of active blood loss. He would like to eat, given his appearance today, acute endoscopy does not seem to be warranted, plan on colonoscopy on Saturday. Clear liquids today, prep tonight. NPO after MN Clear liquids today Tx of 1 unit of PRBC's for anticipated anesthesia tomorrow Start oral iron TID at D/C If symptoms change, or clinical status change please contact. Subjective Now having brown/red BM's, Hb Stable, VSS Review of Systems Review of Systems: All systems reviewed & are unremarkable except as noted in HPI & below Physical Exam Constitutional: WD/WN, vitals as above Cardiovascular: RRR, no murmur, no edema Gastrointestinal (Abdomen): normal bowel sounds, soft, nontender, no hepatosplenomegaly Results & Data Vital Signs (Past 12 Hours) Vital Signs Temp Pulse Pulse Resp BP Pulse Ox 12/07/18 07:22 36.6 C 68 18 146/71 H 96 12/07/18 04:40 36.4 C L 75 20 161/57 H 96 12/07/18 00:00 81 12/06/18 23:00 36.7 C 51 L 18 124/63 97 (1) GI bleed GI bleed type/associated pathology: unspecified gastrointestinal hemorrhage type Qualified Code(s): K92.2 - Gastrointestinal hemorrhage, unspecified
[2018-12-07] MEDS ORDERED: SODIUM CHLORIDE 0.9% 250 ML IV PRN (11:01)
--- NOTE | 2018-12-07 14:21 | Hospitalist Progress Note ---
Date of Service December 07, 2018 Assessment & Plan (1) Acute blood loss anemia: (2) GI bleed: Acute GI bleed Acute Blood loss Anemia CT ABD/pelvis on admission negative for acute findings S/P EGD 12/04:Normal esophagus, normal stomach, erythematous adenopathy, no bleeding seen. No specimens collected. Suspect diverticular bleeding Hgb: 7. 5today S/P 4 units PRBCs Monitor H&H IV Protonix drip Transitioned to PO BID Continue to hold aspirin Appreciate GI Input Clear liquid diet today Bowel prep today, n.p.o. after midnight Plan for colonoscopy tomorrow Colonoscopy likely on Saturday (3) Decreased breath sounds: Suspect atelectasis Continue Incentive spirometer (4) Hypocalcemia: (5) Vitamin D deficiency: Calcium 7.6, ionized 1.08, vitamin D 27.6 Hypocalcemia likely secondary to vitamin D deficiency Replace calcium, vitamin D supplements as needed (6) Abnormal EKG: EKG with left axis deviation, no significant changes from prior EKG Asymptomatic Troponins negative x2 ECHO: Mild concentric LVH, left ventricular systolic function is normal. Ejection fraction 60 to 65%. Right ventricle systolic function is normal. Left atrial size is normal. Right atrial size is normal. Aortic wall sclerosis moderate, without significant aortic valvular stenosis Cardiology consulted, input appreciated (7) Diabetes mellitus, type II: HgbA1c 6.9 on 11/18/18 Hold metformin, glimepiride, Januvia Novolog sliding scale per protocol while hospitalized (8) HTN (hypertension): BP improved with IV fluids On lisinopril Holding HCTZ for now (9) Dyslipidemia: Resume statin as able (10) DVT prophylaxis: SCDs due to GI bleeding Code Status Full Code Disposition Expect to discharge home when stable Subjective Patient is seen and examined at bedside States having minimal bleeding with bowel movement overnight No other complaints Discussed with GI today Plan to give 1 unit PRBCs today Denies any nausea, vomiting, abdominal pain, chest pain, shortness of breath, dizziness. Plan for colonoscopy tomorrow Review of Systems Review of Systems: All systems reviewed & are unremarkable except as noted in HPI & below Physical Exam Physical Exam: Physical Exam: Vitals signs as noted above General Appearance:Moderately built and nourished, no apparent distress Head: normocephalic, Atraumatic Eyes: normal inspection, EOMI Neck: supple, Trachea midline Respiratory/Chest: Normal breath sounds, CTA Cardiovascular: S1, S2, + murmur Abdomen/GI:Soft, Non tender, Bowel sounds present Extremities/Musculoskelatal:normal inspection, no edema Neurologic/Psych:AAOX3, grossly no focal neurological deficits Skin: normal color, warm Results & Data Vital Signs (Past 12 Hours) Vital Signs Temp Pulse Pulse Resp BP BP Pulse Ox 12/07/18 13:45 36.5 C 83 147/70 H 96 12/07/18 13:07 36.6 C 80 18 133/69 12/07/18 12:32 36.9 C 84 18 130/68 96 12/07/18 07:22 36.6 C 68 18 146/71 H 96 12/07/18 04:40 36.4 C L 75 20 161/57 H 96 Laboratory Results Short CBC 12/06/18 12/06/18 12/07/18 Range/Units 15:52 22:21 06:23 Hgb 7.9 L 7.5 L 7.5 L (14.0-18.0) g/dL Hct 23.3 L 22.2 L 23.1 L (42-52) % BMP 12/07/18 06:23 Sodium 142 Potassium 3.6 Chloride 109 H Carbon Dioxide 27 BUN 11 Creatinine 0.90 Glucose 140 H Calcium 8.1 L (1) GI bleed GI bleed type/associated pathology: unspecified gastrointestinal hemorrhage type Qualified Code(s): K92.2 - Gastrointestinal hemorrhage, unspecified
[2018-12-07] MEDS: LAVAGE SOLUTION 4000ML PO SCH (18:04)
[2018-12-07] MEDS ORDERED: AMLODIPINE BESYLATE 5 MG TAB PO ONE (18:32)
[2018-12-07 19:59] LABS: Hematocrit (blood only) 28.8 % (42-52); Hemoglobin 9.5 g/dL (14.0-18.0)
[2018-12-08] MEDS: LAVAGE SOLUTION 4000ML PO SCH (05:09)
[2018-12-08 07:05] LABS: Hematocrit (blood only) 30.9 % (42-52)
[2018-12-08] MEDS: PANTOprazole 40 MG TAB PO SCH (07:27)
[2018-12-08] MEDS: CHOLECALCIFEROL 1,000 UNITS TAB PO SCH (07:27)
[2018-12-08] MEDS: lisinopriL 10 MG TAB PO SCH (07:27)
[2018-12-08] MEDS: INSULIN ASPART 100 UNITS/ML 3 ML PEN SC SCH ×2 (08:35→12:28)
--- NOTE | 2018-12-08 09:17 | Anesthesiology Consultation ---
Date of Service December 08, 2018 Assessment & Plan (1) Encounter for pre-operative examination: Chart Review Chart Review: Acceptable Risk for Surgery and Patient NOT seen in Pre Admission Testing Consults Requested none History Surgery Operation Date: 12/04/18 09:00 Proposed Procedures p Esophagogastroduodenoscopy Dr Lamberto Orantes Operation Date: 12/08/18 08:30 Proposed Procedures p Colonoscopy Dr Jessica Lopez Height/Weight Height: 5 ft 10 in Weight: 87 kg Allergies Allergy/AdvReac Type Severity Reaction Status Date / Time No Known Allergies Allergy Unverified 12/03/18 07:23 Medications Home Medications Medication Instructions Recorded Confirmed Last Taken aspirin [Aspir-81] 81 mg PO DAILY 12/03/18 12/03/18 12/02/18 atorvastatin 40 mg PO HS 12/03/18 12/03/18 12/02/18 cholecalciferol (vitamin D3) 1,000 unit PO QAM 12/03/18 12/03/18 12/02/18 glimepiride 2 mg PO HS 12/03/18 12/03/18 12/02/18 lisinopril-hydrochlorothiazide 1 tab PO QAM 12/03/18 12/03/18 12/02/18 metformin 1,000 mg PO BID 12/03/18 12/03/18 12/02/18 omega-3 fatty acids 1,000 mg PO QAM 12/03/18 12/03/18 Unknown sitagliptin 100 mg PO QAM 12/03/18 12/03/18 12/02/18 Active Medications Generic Name Dose Route Start Last Admin Trade Name Devinq PRN Reason Stop Dose Admin Insulin Aspart 0 units 12/04/18 16:30 12/08/18 08:35 Novolog Flexpen SC 01/02/19 12:59 Not Given ACHS ALIX Lisinopril 10 mg 12/04/18 16:30 12/08/18 07:27 Zestril PO 01/03/19 16:29 10 mg QAM ALIX Administration Pantoprazole Sodium 40 mg 12/06/18 10:45 12/08/18 07:27 Protonix PO 01/05/19 10:44 40 mg BID ALIX Administration Vitamin D 1,000 units 12/05/18 09:00 12/08/18 07:27 Vitamin D3 PO 01/04/19 08:59 1,000 units QAM ALIX Administration Past Medical History Medical History Aortic valve sclerosis (Chronic) Diabetes mellitus, type II (Chronic) Dyslipidemia (Chronic) HTN (hypertension) (Chronic) Exercise / Class Metabolic Activity II 4-5 Yardwork/Stairs/Walk up hill Past Family History Family History Father Bladder cancer Diabetes Mother Diabetes Past Surgical History Surgical History History of colonoscopy (Chronic) 10/2010 colonoscopy: Sigmoid diverticulosis History of esophagogastroduodenoscopy (EGD) 12/04/2018. propofol no issues. Past Anesthesia History No Hx of Anesthesia Complications and No Family Hx of Anesthesia Complications History of PONV No Hx of PONV and No Hx of Motion Sickness Social History Smoking Status: Current some day smoker tobacco type: cigars Smoking cigarettes per day: 1 Do You Dip or Chew Tobacco: No Hx Alcohol Use: No Hx Substance Use: No substance use type: does not use Physical Exam Vital Signs Last Vital Signs Temp 36.6 C 12/08/18 07:00 Pulse 75 12/08/18 07:00 Resp 18 12/08/18 07:00 BP 155/87 H 12/08/18 07:00 Pulse Ox 99 12/08/18 07:00 Testing Laboratory Results 12/08/18 06:37 12/07/18 06:23 PT 10.9 Seconds (9.0-12.0) 12/03/18 07:21 INR 1.1 (0.9-1.1) 12/03/18 07:21 APTT 22.6 Seconds (21.0-31.0) 12/03/18 07:21 Blood Type O Negative 12/07/18 11:06 Antibody Screen NEGATIVE 12/07/18 11:06 12/03/18 11:30 Escherichia coli Shiga Toxins Test - Final Stool Stool Culture - Final No Salmonella isolated, No Shigella isolated, No Campylobacter jejuni isolated. 12/08/18 12/08/18 07:54 05:46 POC Glucose 148 H 155 H Electrocardiogram Date: 12/04/18 Findings: + NSR @ (at 72;LAD;ILBBB;LVH;T wave abnormality) Echocardiogram Date: 12/03/18 LVH. LV systolic function normal. RV systolic function is normal. EF 60-65%. No .
[2018-12-08 09:55] VITALS: O2SAT 98
[2018-12-08] MEDS ORDERED: PROPOFOL IV EMULSION 10 MG/ML 20 ML VIAL IV ONE (09:55)
[2018-12-08] MEDS ORDERED: LIDOCAINE HCL 2% 2 ML VIAL/AMP(20MG/ML) INFIL ONE (09:55)
--- NOTE | 2018-12-08 09:58 | Gastroenterology Progress Note ---
Date of Service December 08, 2018 Assessment & Plan (1) GI bleed: Plan for colonoscopy for overt obscure GI bleeding. Subjective Doing well, no further bleeding. Transfuse 1 unit of blood with hemoglobin resulting in to 10 Physical Exam Constitutional: WD/WN, vitals as above Cardiovascular: RRR, no murmur, no edema Gastrointestinal (Abdomen): normal bowel sounds, soft, nontender, no hepatosplenomegaly Results & Data Vital Signs (Past 12 Hours) Vital Signs Temp Pulse Pulse Pulse Resp BP BP 12/08/18 09:53 36.8 C 78 78 16 148/88 H 12/08/18 07:00 36.6 C 75 18 155/87 H 12/08/18 04:12 36.8 C 71 18 145/69 H 12/07/18 23:43 36.7 C 73 18 148/62 H 12/07/18 23:35 69 Pulse Ox 12/08/18 09:53 98 12/08/18 07:00 99 12/08/18 04:12 98 12/07/18 23:43 98 12/07/18 23:35 (1) GI bleed GI bleed type/associated pathology: unspecified gastrointestinal hemorrhage type Qualified Code(s): K92.2 - Gastrointestinal hemorrhage, unspecified
--- NOTE | 2018-12-08 10:12 | Gastroenterology Progress Note ---
Date of Service December 08, 2018 Assessment & Plan (1) Anemia: (2) GI bleed: Pt is a 78 y/o male followed for anemia and GI bleeding. EGD last week negative for source of UGI bleed. Suspected he may have diverticular bleed. He continued to anemic and passing dark/reddish stool over the weekend and he is currently prepped to undergo colonoscopy today - Monitor H/H and transfuse prn - Keep NPO - GI will give further recs after colonoscopy is completed. Subjective Pt up in bed, comfortable, in NAD. He completed bowel prep and been NPO after midnight for colonoscopy today. He denies any abd pain, n/v, passing "brown liquid". Denies rectal bleeding. 1U PRBC given last night, Hgb up to 10 Review of Systems Review of Systems: All systems reviewed & are unremarkable except as noted in HPI & below Physical Exam Constitutional: WD/WN, vitals as above well groomed, cooperative and comfortable Eyes: PERRL, conjunctivae normal, anicteric sclerae ENMT: external ear and nose normal, oropharynx normal Respiratory: normal respiratory effort, lungs clear to auscultation Cardiovascular: Rate/Rhythm: regular rhythm Heart Sounds: + murmur (grade III/ murmur) Gastrointestinal (Abdomen): normal bowel sounds, soft, nontender, no hepatosplenomegaly Skin: no rashes, warm and dry no jaundice Psychiatric: A+Ox3, euthymic affect Lymphatic: no lymphedema Results & Data Vital Signs (Past 12 Hours) Vital Signs Temp Pulse Pulse Pulse Resp BP BP 12/08/18 09:53 36.8 C 78 78 16 148/88 H 12/08/18 07:00 36.6 C 75 18 155/87 H 12/08/18 04:12 36.8 C 71 18 145/69 H 12/07/18 23:43 36.7 C 73 18 148/62 H 12/07/18 23:35 69 Pulse Ox 12/08/18 09:53 98 12/08/18 07:00 99 12/08/18 04:12 98 12/07/18 23:43 98 12/07/18 23:35 (1) Anemia Anemia type: unspecified type Qualified Code(s): D64.9 - Anemia, unspecified (2) GI bleed GI bleed type/associated pathology: unspecified gastrointestinal hemorrhage type Qualified Code(s): K92.2 - Gastrointestinal hemorrhage, unspecified
--- NOTE | 2018-12-08 10:52 | GI REPORT ---
Patient Name: Russ Love Procedure Date: 12/08/2018 10:07 AM Date of : 1940 Admit Type: Inpatient Age: 78 Gender: Male Attending MD: Bruno Lopez MD Procedure: Colonoscopy Providers: Bruno Lopez MD Referring MD: Diallo Hudson Md, Elvis Flores Indications: Rectal bleeding Medicines: Monitored Anesthesia Care Complications: No immediate complications. Estimated blood loss: None. Estimated Blood Loss: Estimated blood loss: none. Procedure: Pre-Anesthesia Assessment: - Pre-Anesthesia Assessment: - Prior to the procedure, a History and Physical was performed, and patient medications, allergies and sensitivities were reviewed. The patient's tolerance of previous anesthesia was reviewed. Please see [employer] for complete details. - The risks and benefits of the procedure and the sedation options and risks were discussed with the patient. All questions were answered and informed consent was obtained. - Patient identification and proposed procedure were verified prior to the procedure by the physician and the nurse. The procedure was verified in the pre-procedure area in the procedure room. After obtaining informed consent, the endoscope was passed carefully and meticuously under direct vision and only advanced when the lumen was clearly identified, C02 insuflation was utilized throughout the entirity of the procedure. Throughout the procedure, the patient's blood pressure, pulse, and oxygen saturations were monitored continuously. After I obtained informed consent, the scope was passed under direct vision. Throughout the procedure, the patient's blood pressure, pulse, and oxygen saturations were monitored continuously. The scope was introduced through the anus and advanced to the terminal ileum, with identification of the appendiceal orifice and IC valve. The colonoscopy was performed without difficulty. The patient tolerated the procedure well. The quality of the bowel preparation was good. Findings: The terminal ileum appeared normal. Multiple small and large-mouthed diverticula were found in the sigmoid colon. No bleeding or blood noted in the colon. Internal hemorrhoids were found during retroflexion. Two sessile polyps were found in the cecum. The polyps were 2 to 3 mm in size. These polyps were removed with a cold snare. Resection and retrieval were complete. Four sessile polyps were found in the ascending colon. The polyps were 4 to 6 mm in size. These polyps were removed with a cold snare. Resection and retrieval were complete. A 9 mm polyp was found in the descending colon. The polyp was sessile. The polyp was removed with a cold snare. Resection and retrieval were complete. To prevent bleeding post-intervention, two hemostatic clips were successfully placed (MR conditional). There was no bleeding during, or at the end, of the procedure. A 2 mm polyp was found in the rectum. The polyp was sessile. The polyp was removed with a cold snare. Resection and retrieval were complete. The exam was otherwise without abnormality on direct and retroflexion views. Impression: - The examined portion of the ileum was normal. - Diverticulosis in the sigmoid colon. - Internal hemorrhoids. - Two 2 to 3 mm polyps in the cecum, removed with a cold snare. Resected and retrieved. - Four 4 to 6 mm polyps in the ascending colon, removed with a cold snare. Resected and retrieved. - One 9 mm polyp in the descending colon, removed with a cold snare. Resected and retrieved. Clips (MR conditional) were placed. - One 2 mm polyp in the rectum, removed with a cold snare. Resected and retrieved. - The examination was otherwise normal on direct and retroflexion views. Recommendation: - Likely able Discharge patient to home (with escort) today with close follow up with PCP. - No signs of bleeding, likely diverticular in nature as admitting etiology given history and findings on today's exam. - Follow Hb as outpatient as well as symptoms or signs of GI bleeding. - Start PO iron, if bleeding returns then will need possible evalution of small bowel with capsule or enteroscopy. - Resume regular diet. - Repeat colonoscopy for surveillence likely not indicated given age but final determination after pathology is reviewed. Bruno Lopez MD 12/08/2018 10:51:47 AM This report has been signed electronically. Note Initiated On: 12/08/2018 10:07 AM Number of Addenda: 0 I attest to the content of the Intraoperative Record and orders documented therein, exceptions below {[id number]}
[2018-12-08 10:55] VITALS: TEMP 97.5
[2018-12-08 11:21] VITALS: BP 141/65; PULSE 64
[2018-12-08] MEDS ORDERED: FERROUS SULFATE 325 MG TAB PO SCH (12:00)
--- NOTE | 2018-12-08 12:40 | Anesthesiology Progress Note ---
Date of Service December 08, 2018 Anesthesia Post Procedure Vital Signs Vital Signs: Temp Pulse Pulse Pulse Resp BP BP 12/08/18 11:20 64 64 16 12/08/18 11:06 68 68 16 12/08/18 10:52 36.4 C L 78 77 16 12/08/18 09:53 36.8 C 78 78 16 12/08/18 07:00 36.6 C 75 18 155/87 H 12/08/18 04:12 36.8 C 71 18 12/07/18 23:43 36.7 C 73 18 12/07/18 23:35 69 12/07/18 19:00 36.5 C 64 20 170/74 H 12/07/18 17:15 72 12/07/18 16:14 36.9 C 62 18 163/75 H 12/07/18 13:45 36.5 C 83 147/70 H 12/07/18 13:42 36.9 C 61 18 160/91 H 12/07/18 13:07 36.6 C 80 18 133/69 BP Pulse Ox 12/08/18 11:20 141/65 H 98 12/08/18 11:06 134/62 98 12/08/18 10:52 121/63 98 12/08/18 09:53 148/88 H 98 12/08/18 07:00 99 12/08/18 04:12 145/69 H 98 12/07/18 23:43 148/62 H 98 12/07/18 23:35 12/07/18 19:00 98 12/07/18 17:15 12/07/18 16:14 98 12/07/18 13:45 96 12/07/18 13:42 97 12/07/18 13:07 Transfer of Care Handoff Completed per policy Notes Mental Status: alert / awake / arousable and participated in evaluation Patient Amnestic to Procedure: Yes Nausea / Vomiting: adequately controlled Pain: adequately controlled Airway Patency, RR, SpO2: stable & adequate BP & HR: stable & adequate Hydration State: stable & adequate Anesthetic Complications: no major complications apparent and Pt Satisfied with anesthetic care
--- NOTE | 2018-12-08 14:32 | Hospitalist Progress Note ---
Date of Service December 08, 2018 Assessment & Plan (1) Acute blood loss anemia: (2) GI bleed: Acute GI bleed Acute Blood loss Anemia --CT ABD/pelvis on admission negative for acute findings --S/P EGD 12/04:Normal esophagus, normal stomach, erythematous adenopathy, no bleeding seen. No specimens collected. --S/P Colonoscopy: - Diverticulosis in the sigmoid colon. - Internal hemorrhoids. -Two 2 to 3 mm polyps in the cecum, removed with a cold snare. Resected and retrieved. - Four 4 to 6 mm polyps in the ascending colon, removed with a cold snare. Resected and retrieved. - One 9 mm polyp in the descending colon, removed with a cold snare. Resected and retrieved. Clips (MR conditional) were placed. - One 2 mm polyp in the rectum, removed with a cold snare. Resected and retrieved. - The examination was otherwise normal on direct and retroflexion views. --If recurrence of bleeding, patient will need evaluation of small bowel with capsule lower enteroscopy --We will start on oral iron therapy --Pathology report pending --Repeat surveillance colonoscopy if needed will based on pathology reports Hgb:10.0 today S/P 5 units PRBCs Monitor H&H IV Protonix drip Transitioned to PO BID Continue to hold aspirin Appreciate GI Input Tolerated diet Needs follow-up with gastroenterology upon discharge (3) Decreased breath sounds: Suspect atelectasis Continue Incentive spirometer (4) Hypocalcemia: (5) Vitamin D deficiency: Calcium 7.6, ionized 1.08, vitamin D 27.6 Hypocalcemia likely secondary to vitamin D deficiency Replace calcium, vitamin D supplements as needed (6) Abnormal EKG: EKG with left axis deviation, no significant changes from prior EKG Asymptomatic Troponins negative x2 ECHO: Mild concentric LVH, left ventricular systolic function is normal. Ejection fraction 60 to 65%. Right ventricle systolic function is normal. Left atrial size is normal. Right atrial size is normal. Aortic wall sclerosis moderate, without significant aortic valvular stenosis Cardiology consulted, input appreciated (7) Diabetes mellitus, type II: HgbA1c 6.9 on 11/18/18 Hold metformin, glimepiride, Januvia Novolog sliding scale per protocol while hospitalized (8) HTN (hypertension): BP improved with IV fluids On lisinopril Resume HCTZ as able (9) Dyslipidemia: Resume statin as able (10) DVT prophylaxis: SCDs due to GI bleeding Code Status Full Code Disposition Plan to discharge home today Subjective Patient is seen and examined at bedside Had colonoscopy earlier today No bleeding issues today Discussed with GI today Denies any nausea, vomiting, abdominal pain, chest pain, shortness of breath, dizziness. Eager to get discharged Review of Systems Review of Systems: All systems reviewed & are unremarkable except as noted in HPI & below Physical Exam Physical Exam: Physical Exam: Vitals signs as noted above General Appearance:Moderately built and nourished, no apparent distress Head: normocephalic, Atraumatic Eyes: normal inspection, EOMI Neck: supple, Trachea midline Respiratory/Chest: Normal breath sounds, CTA Cardiovascular: S1, S2, + murmur Abdomen/GI:Soft, Non tender, Bowel sounds present Extremities/Musculoskelatal:normal inspection, no edema Neurologic/Psych:AAOX3, grossly no focal neurological deficits Skin: normal color, warm Results & Data Vital Signs (Past 12 Hours) Vital Signs Temp Pulse Pulse Resp BP BP Pulse Ox 12/08/18 11:20 64 64 16 141/65 H 98 12/08/18 11:06 68 68 16 134/62 98 12/08/18 10:52 36.4 C L 78 77 16 121/63 98 12/08/18 09:53 36.8 C 78 78 16 148/88 H 98 12/08/18 07:00 36.6 C 75 18 155/87 H 99 12/08/18 04:12 36.8 C 71 18 145/69 H 98 Laboratory Results Short CBC 12/07/18 12/08/18 Range/Units 19:50 06:37 Hgb 9.5 L 10.0 L (14.0-18.0) g/dL Hct 28.8 L 30.9 L (42-52) % (1) GI bleed GI bleed type/associated pathology: unspecified gastrointestinal hemorrhage type Qualified Code(s): K92.2 - Gastrointestinal hemorrhage, unspecified
--- NOTE | 2018-12-08 14:49 | Discharge Summary ---
Date of Service December 08, 2018 Admission HPI Per Admitting Provider Pt is 78 y/o M with PMH HTN, dyslipidemia, DM II, aortic sclerosis presented to ER with c/o rectal bleeding. Patient states yesterday started with sensation like had to have BM however was all dark red blood and no stool. This occurred 3 times. This am dizziness with standing this morning. No syncope. Denies any chest pain or shortness of breath. Denies any abdominal pain. This morning drank a cup of coffee and ate a piece of bread with peanut butter. Denies fever/chills, diaphoresis, N/V, STARR, vision changes, neck pain, exertional CP or SOB, orthopnea, palpitations, cough, sore throat, choking, otalgia, rhinorrhea, paresthesias, weakness, extremity weakness, extremity edema, rashes, urinary symptoms. Hx colonoscopy in 2010: sigmoid diverticulosis Admission Exam Per Admitting Provider General: no acute distress, WDWN Head: normocephalic, atraumatic Eyes: PERRL, EOM's intact, conjunctiva pale, anicteric ENT: normal inspection external ears, nose, mucous membranes moist Neck: supple, trachea midline Lungs: clear, no respiratory distress, no wheezing/rhonchi/rales CV: RRR, +systolic murmur, no pretibial edema Abd: normal BS, soft, non-tender Ext: no cyanosis, no calf tenderness Neuro: A&O x 3, no focal deficits noted, normal affect Skin: pale, warm, dry Principal Diagnosis Acute gastrointestinal bleeding Acute blood loss anemia Hypocalcemia Vitamin D deficiency Discharge Data Allergies Allergy/AdvReac Type Severity Reaction Status Date / Time No Known Allergies Allergy Verified 12/08/18 09:55 Consultations 12/03/18 07:55 ED Decision to Admit Stat 12/03/18 08:28 Consult Gastroenterology Stat 12/03/18 08:29 Consult Cardiology Stat 12/03/18 12:52 Consult Case Management - Discharge Planning Routine Consult Gastroenterology Routine Procedures Performed Operation Date: 12/04/18 09:00 Actual Procedures p Esophagogastroduodenoscopy(Not Applicable) - Austin Orantes Operation Date: 12/08/18 08:30 Actual Procedures p Colonoscopy Polypectomy - Bruno Lopez Ordered Studies 12/03/18 07:55 CT abd pelvis IV con only Stat --CT ABD/pelvis on admission negative for acute findings --EGD 12/04:Normal esophagus, normal stomach, erythematous adenopathy, no bleeding seen. No specimens collected. --Colonoscopy: - Diverticulosis in the sigmoid colon. - Internal hemorrhoids. - Two 2 to 3 mm polyps in the cecum, removed with a cold snare. Resected and retrieved. - Four 4 to 6 mm polyps in the ascending colon, removed with a cold snare. Resected and retrieved. - One 9 mm polyp in the descending colon, removed with a cold snare. Resected and retrieved. Clips (MR conditional) were placed. - One 2 mm polyp in the rectum, removed with a cold snare. Resected and retrieved. - The examination was otherwise normal on direct and retroflexion views. Hospital Course (1) Acute blood loss anemia: (2) GI bleed: Acute GI bleed Acute Blood loss Anemia --CT ABD/pelvis on admission negative for acute findings --S/P EGD 12/04:Normal esophagus, normal stomach, erythematous adenopathy, no bleeding seen. No specimens collected. --S/P Colonoscopy: - Diverticulosis in the sigmoid colon. - Internal hemorrhoids. -Two 2 to 3 mm polyps in the cecum, removed with a cold snare. Resected and retrieved. - Four 4 to 6 mm polyps in the ascending colon, removed with a cold snare. Resected and retrieved. - One 9 mm polyp in the descending colon, removed with a cold snare. Resected and retrieved. Clips (MR conditional) were placed. - One 2 mm polyp in the rectum, removed with a cold snare. Resected and retrieved. - The examination was otherwise normal on direct and retroflexion views. --If recurrence of bleeding, patient will need evaluation of small bowel with capsule lower enteroscopy --We will start on oral iron therapy --Pathology report pending --Repeat surveillance colonoscopy if needed will based on pathology reports Hgb:10.0 today S/P 5 units PRBCs Monitor H&H IV Protonix drip Transitioned to PO BID Continue to hold aspirin Appreciate GI Input Tolerated diet Needs follow-up with gastroenterology upon discharge (3) Decreased breath sounds: Suspect atelectasis Continue Incentive spirometer (4) Hypocalcemia: (5) Vitamin D deficiency: Calcium 7.6, ionized 1.08, vitamin D 27.6 Hypocalcemia likely secondary to vitamin D deficiency Replace calcium, vitamin D supplements as needed (6) Abnormal EKG: EKG with left axis deviation, no significant changes from prior EKG Asymptomatic Troponins negative x2 ECHO: Mild concentric LVH, left ventricular systolic function is normal. Ejection fraction 60 to 65%. Right ventricle systolic function is normal. Left atrial size is normal. Right atrial size is normal. Aortic wall sclerosis moderate, without significant aortic valvular stenosis Cardiology consulted, input appreciated (7) Diabetes mellitus, type II: HgbA1c 6.9 on 11/18/18 Hold metformin, glimepiride, Januvia Novolog sliding scale per protocol while hospitalized (8) HTN (hypertension): BP improved with IV fluids On lisinopril Resume HCTZ as able (9) Dyslipidemia: Resume statin as able (10) DVT prophylaxis: SCDs due to GI bleeding Code Status Full Code Disposition Plan to discharge home today Total Time Total Time Spent Total Time Spent (In Minutes): 42 minutes Total Time Includes: Examination of the Patient, Discharge Planning, Medication Reconciliation, Communication With Other Providers and Other Discharge Plan Discharge Items Patient Disposition: Home - Self-Care Reason For Visit: GI BLEED Discharge Diagnosis: Acute gastrointestinal bleeding Acute blood loss anemia Hypocalcemia Vitamin D deficiency Activity: Resume your previous activity Exercise/Sports: Gradually increase as tolerated Non-emergency contact: Primary Care Provider and Grid Caster Call non-emergency contact if: you have any medication questions, your symptoms worsen, your pain is not controlled, your pain is worsening, your pain is unusual for you, your pain is concerning for you and you have a fever Follow-up/Referrals: Elvis Flores MD [Primary Care Provider] - Diet: Carb Consistent or DM2 and Low Fiber Addtl Attending Provider Instructions: Follow-up with your primary care physician Dr. Flores on December 12, 2018 at 10:45 AM Follow-up with your photographic processor Dr. Bruno lopez in 4 weeks as advised Medication changes: Hold taking aspirin until further recommendations by your primary care physician or photographic processor Start taking iron supplements as prescribed You are started on pantoprazole 40 mg twice a day. Duration of the medication course to be determined by your photographic processor. Avoid any NSAIDs as they can increase your risk for bleeding The pathology report is currently pending at the time of discharge. Follow-up with your primary care physician for results. You may need repeat colonoscopy for surveillance based on your pathology reports. Seek immediate medical attention if your symptoms reoccur or worsen Pending Studies at Discharge: Yes Studies:: Pathology report Stand-Alone Forms: My [facility], Smoking Cessation Medications and DC Order Prescriptions: New pantoprazole 40 mg Tablet,Delayed Release (Dr/Ec) 40 mg PO BID 30 Days Qty: 60 RF: 0 ferrous sulfate 325 mg (65 mg iron) Tablet,Delayed Release (Dr/Ec) 325 mg PO TIDM 30 Days Qty: 30 RF: 1 Continued atorvastatin 40 mg Tablet 40 mg PO HS RF: 0 omega-3 fatty acids 1,000 mg Capsule 1,000 mg PO QAM RF: 0 glimepiride 2 mg Tablet 2 mg PO HS RF: 0 lisinopril-hydrochlorothiazide 10-12.5 mg Tablet 1 tab PO QAM RF: 0 cholecalciferol (vitamin D3) 1,000 unit Capsule 1,000 unit PO QAM RF: 0 metformin 1,000 mg Tablet Extended Release 24hr 1,000 mg PO BID RF: 0 sitagliptin 100 mg Tablet 100 mg PO QAM RF: 0 Discontinued aspirin [Aspir-81] 81 mg Tablet,Delayed Release (Dr/Ec) 81 mg PO DAILY RF: 0 Discharge Orders: Discharge Order (Routine); Ordered 12/08/18 Ordered By: Diallo Lewis/Other Patient Handouts: Diverticulosis Diverticulitis Admission Data Admit Date/Time: 12/03/18 08:53 Attending Provider: Diallo Hudson Admit Provider: Diallo Hudson Primary Care Provider: Elvis Flores Other Providers: Aaron Conti ; Diallo Hudson ; Austin Orantes ; Bruno Lopez Other Interventions: Discharge Summary Assessment (RN) Last Done: 12/08/18 14:54 DC Date/Time DO NOT enter until pt leaves facility: 12/08/18 15:53
[2018-12-09] MEDS ORDERED: FERROUS SULFATE 325 MG TAB PO SCH (09:00)
== END 2018-12-08 15:53 | disposition home or self-care (01) | DRG 378 ==
LOC: ED 06:40 → 2N 08:53

== ENCOUNTER 2024-01-07 18:16 | Inpatient (IN) ==
[2024-01-07] MEDS: RAPID SEQUENCE INDUCTION BAG ONE (18:30)
--- NOTE | 2024-01-07 18:35 | Emergency Department Note ---
Impression & Plan Cardiac arrest, Respiratory failure, Ventricular fibrillation ED Provider Note Provider: Santiago Gutierrez MD CHIEF COMPLAINT: Cardiac arrest HISTORY OF PRESENT ILLNESS: Patient is a 83-year-old gentleman history of diabetes hypertension and GI bleeds in the past presenting here after cardiac arrest [place] [facility] the [facility]. Patient was a witnessed cardiac arrest went down and had 2 rounds of CPR and shock provided by ED with ROSC. Patient with some agonal breathing but no response to command or significant painful stimuli response upon arrival. Some provide interval history. EMS state he has been intermittently having some breath but not doing anything from them neurologically. There is no trauma reported. No medications given prior to arrival. No additional shocks. Family states the patient was having a bit of loose diarrhea recently but that was not horribly uncommon for him. Did have a little bit of stomach upset and had an [place] earlier. Grandson states the patient was talking midsentence slumped over. Alerted doctors and he was lowered to the ground. No trauma reported. No other significant illnesses or pain complaints reported. PAST MEDICAL HISTORY: As noted above MEDICATIONS: Reviewed home medication list SOCIAL HISTORY: PHYSICAL EXAM: GENERAL: On stretcher BVM being used. Left nasal airway in place. No response to painful stimuli. Eyes closed. Head: normocephalic and atraumatic EYES: No injection, discharge or icterus. PERRL, EOMI. NECK: Trachea midline. Supple. ENT: Mucous membranes pink and moist. LUNGS: Airway patent. No retractions. Breath sounds clear with good air entry bilaterally. HEART: Regular rate and rhythm. No chest wall tenderness ABDOMEN: Soft and non-tender, without guarding or rebound. SKIN: Acyanotic, warm, dry, without rashes EXTREMITIES: Without swelling, tenderness or deformity NEUROLOGICAL: No response to painful stimuli. Occasional little flicker of movement in the right arm but nothing purposeful and not following commands. EK bpm significant artifact across precordial leads without obvious arrhythmia with widespread ST-T segment depressions and a left bundle obvious. CONTINUOUS CARDIAC MONITORING: was ordered and showed a heart rate of 100s-130s bpm in sinus tachycardia occasional PVC with a large left bundle branch block. EK bpm sinus tachycardia left axis and left bundle branch block with some lateral T wave inversions/ST depression with a QTc of 434. EK bpm sinus tachycardia with a left bundle branch block/left axis and lateral ST depression and T wave inversions. Patient's laboratory studies and imaging reviewed. Differential includes Cardiac ischemia, aortic dissection, pulmonary embolism, electrolyte abnormality, acidosis, tension pneumothorax, hypothermia, hypovolemia, intracranial event, cardiac tamponade, as well as other pathologies. IMPRESSION/MEDICAL DECISION MAKING: Upon arrival patient with some agonal breathing tachycardic and hypertensive but not responsive to painful stimuli. Given concern for airway protection intubated here as below without obvious complication. Post abasia x-ray shows appropriate placement without pneumothorax. Propofol drip initiated for sedation. Basic labs obtained. Not hypoglycemic or with severe electrolyte abnormality noted. Will send for CT of the head as well as CT of the chest to exclude underlying PE or intracranial bleed. [id number] electrolytes without severe abnormality or hyperglycemia. No evidence of acute kidney injury. Given that there is report she has had some diarrhea and abdominal upset will expand CT to include the abdomen pelvis. EKG with left bundle branch block and some lateral ST depression. No ST elevation meeting Sgarbossa criteria. EEG report later available shows that at 1541 the patient was in what appears to be a V-fib and received 1 200 J shock with conversion to sinus rhythm. Did obtain records from the [facility] system with the help of case management. Patient with a history of 40 to 44% EF and low gradient severe aortic stenosis evaluation by cardiology December 19 of this year. EKG from December and shows a left bundle branch block present. Blood work here without significant leukocytosis or severe anemia. VBG 7.32 with a CO2 of 48 and a O2 of 46 just prior to intubation without severe acidosis. Lactate is elevated at 4.2. No significant renal dysfunction or electrolyte abnormality noted on formal labs as well. AST slightly elevated 52 but no other significant transaminitis. CK normal. Troponin returns normal at 12.[address] the head, CT angiogram of the chest, CT abdomen pelvis per radiology without evidence of acute intracranial bleed. No evidence of large PE questionably little aspiration of the lungs. Reached out discussed with the watershed engineer Dr. Kelley patient's case with shocked V-fib via AED. Recommended we monitor him in the ICU and cardiology evaluate in the morning. Did discuss with the ICU nurse practitioner tonight the patient's case as well as the hospitalist. Updated family. DIAGNOSIS: Postcardiac arrest, respiratory failure DISPOSITION: Hospitalist will evaluate. Family updated Critical Care I have personally spent 76 minutes of critical care time in the direct management of this patient. This includes bedside care, interpretation of diagnostic studies, and testing, discussion with consultants, patient, and family members, and other required patient management activities. These 76 minutes is in excess of all separately billable procedures. ED Intubation performed by myself Indication postcardiac arrest, airway protection The patient was on 100% oxygen via NRB prior to the procedure. Suction, airway equipment, RSI drugs, respiratory equipment, and appropriate personnel were prepared prior to the initiation of the procedure. A time out was taken. Induction was performed with 15 mg of etomidate and 80 mg rocuronium. After observing the clinical benefit of the medications, the airway was easily visualized utilizing a 4 glide scope. A 7.5 size ETT tube was placed atraumatically to 24 cm using standard technique. The cuff inflated without signs of malfunction. There were bilateral breath sounds, positive colormetric change, no gastric sounds, a good capnography waveform, and post procedure pulse oximetry was 100%. Post intubation sedation with propofol drip. There were no complications. Past Med/Surg History Problem List Ventricular fibrillation (Acute) Respiratory failure (Acute) Cardiac arrest (Acute) Bilateral carpal tunnel syndrome Right carpal tunnel syndrome Right trigger finger got injection Vitamin D deficiency Hypocalcemia Acute blood loss anemia Anemia (Acute) GI bleed (Acute) Aortic valve sclerosis (Chronic) follows with Dr. Velasquez Diabetes mellitus, type II (Chronic) NIDDM Dyslipidemia (Chronic) HTN (hypertension) (Chronic) Medical History Aortic valve sclerosis followed with Dr Velasquez Diabetes mellitus, type 2 NIDDM History of anemia r/t GI bleed in 11/2018. EGD and x5 units of blood History of GI bleed (11/2018) Hypertension Hyperlipidemia History of COVID-29 Nov 2021 > not hospitalized Surgical History S/P carpal tunnel release (05/15/23) right History of left cataract extraction History of tooth extraction History of tonsillectomy History of esophagogastroduodenoscopy (EGD) 12/04/2018. propofol no issues. History of colonoscopy 10/2010 colonoscopy: Sigmoid diverticulosis Family History Father Diabetes Bladder cancer Mother Diabetes Other No family history of adverse response to anesthesia Social History Smoking Status: Unknown if ever smoked Tobacco Type: Cigarettes Second Hand Exposure: No; Do You Dip or Chew Tobacco: No; Hx Alcohol Use: No Hx Substance Use: No Preferred Language: Cook Islander Communication Ability: Effective Senior Resident Care Director Required: No Beliefs That Will Affect Care: None Current Living Situation: Spouse Other Information That Helps Us Care for You: No Feels Safe at Home: Yes Assistive Devices: Hearing Aid - Bilateral Allergies Allergies Allergy/AdvReac Type Severity Reaction Status Date / Time No Known Allergies Allergy Verified 01/07/24 19:19 Home Meds Home Medications Medication Instructions Recorded Confirmed atorvastatin 40 mg tablet 40 mg PO QAM 12/03/18 01/07/24 cholecalciferol (vitamin D3) 25 1,000 unit PO QAM 12/03/18 01/07/24 mcg (1,000 unit) capsule lisinopril 10 0.5 tab PO QAM 12/03/18 01/07/24 mg-hydrochlorothiazide 12.5 mg tablet empagliflozin 25 mg tablet 25 mg PO QAM 06/29/22 01/07/24 (Jardiance) ascorbic acid (vitamin C) 125 mg 125 mg PO DAILY 01/07/24 01/07/24 chewable tablet (Vitamin C) cyanocobalamin (vitamin B-12) 100 100 mcg PO DAILY 01/07/24 01/07/24 mcg tablet glipizide 5 mg tablet, extended 5 mg PO QAM 01/07/24 01/07/24 release 24 hr metformin 1,000 mg tablet 1,000 mg PO BID 01/07/24 01/07/24 Results & Data (ED) Vital Signs Vital Signs - 24 hr 01/07/24 18:15 01/07/24 18:33 01/07/24 18:37 Temperature 35.6 C L Temperature Source Celeste Cath ( Temp Sensing) Pulse Rate 125 H 130 H Pulse Rate [Apical] Pulse Rate from SpO2 Sensor Pulse Rhythm [Apical] Respiratory Rate 20 Respiratory Effort / Characteristics Mechanically Ventilated Respiratory Depth Blood Pressure 194/122 H Blood Pressure [Left Arm] Blood Pressure Mean 146 Blood Pressure Mean [Left Arm] Blood Pressure Position [Left Arm] Pulse Oximetry 100 Oxygen Delivery Method Mechanical Vent Fraction of Inspired Oxygen 70 Sepsis Recent Fever Within 48 Hours No Sepsis New/Unexplained Change in Mental Status N/A Sepsis Action Taken by Nursing Physician Notified End-Tidal CO2 01/07/24 18:41 01/07/24 19:06 01/07/24 19:24 Temperature Temperature Source Pulse Rate Pulse Rate [Apical] Pulse Rate from SpO2 Sensor Pulse Rhythm [Apical] Respiratory Rate Respiratory Effort / Characteristics Mechanically Ventilated Respiratory Depth Blood Pressure 150/103 H Blood Pressure [Left Arm] Blood Pressure Mean 116 Blood Pressure Mean [Left Arm] Blood Pressure Position [Left Arm] Pulse Oximetry 100 Oxygen Delivery Method Mechanical Vent Fraction of Inspired Oxygen Sepsis Recent Fever Within 48 Hours Sepsis New/Unexplained Change in Mental Status Sepsis Action Taken by Nursing End-Tidal CO2 01/07/24 19:30 01/07/24 19:40 01/07/24 19:42 Temperature 36.5 C 36.4 C L Temperature Source Pulse Rate 128 H 118 H Pulse Rate [Apical] Pulse Rate from SpO2 Sensor 128 H 118 H Pulse Rhythm [Apical] Respiratory Rate 20 20 Respiratory Effort / Characteristics Respiratory Depth Blood Pressure 157/98 H 140/88 Blood Pressure [Left Arm] Blood Pressure Mean 117 125 Blood Pressure Mean [Left Arm] Blood Pressure Position [Left Arm] Pulse Oximetry 95 95 Oxygen Delivery Method Fraction of Inspired Oxygen Sepsis Recent Fever Within 48 Hours Sepsis New/Unexplained Change in Mental Status Sepsis Action Taken by Nursing End-Tidal CO2 34 35 01/07/24 19:50 01/07/24 19:50 01/07/24 20:00 Temperature Temperature Source Pulse Rate Pulse Rate [Apical] 108 H Pulse Rate from SpO2 Sensor Pulse Rhythm [Apical] Regular Respiratory Rate 21 Respiratory Effort / Characteristics Mechanically Ventilated Respiratory Depth Normal Blood Pressure 128/79 122/78 Blood Pressure [Left Arm] 128/79 Blood Pressure Mean 97 91 Blood Pressure Mean [Left Arm] 95 Blood Pressure Position [Left Arm] Lying Pulse Oximetry 96 Oxygen Delivery Method Mechanical Vent Fraction of Inspired Oxygen Sepsis Recent Fever Within 48 Hours Sepsis New/Unexplained Change in Mental Status Sepsis Action Taken by Nursing End-Tidal CO2 01/07/24 20:09 01/07/24 20:11 01/07/24 20:15 Temperature 36.3 C L Temperature Source Pulse Rate 87 Pulse Rate [Apical] Pulse Rate from SpO2 Sensor 87 Pulse Rhythm [Apical] Respiratory Rate 20 Respiratory Effort / Characteristics Respiratory Depth Blood Pressure 80/52 L 75/46 L Blood Pressure [Left Arm] Blood Pressure Mean 59 54 Blood Pressure Mean [Left Arm] Blood Pressure Position [Left Arm] Pulse Oximetry 97 Oxygen Delivery Method Fraction of Inspired Oxygen Sepsis Recent Fever Within 48 Hours Sepsis New/Unexplained Change in Mental Status Sepsis Action Taken by Nursing End-Tidal CO2 01/07/24 20:16 01/07/24 20:17 01/07/24 20:18 Temperature 36.3 C L Temperature Source Pulse Rate 85 78 Pulse Rate [Apical] Pulse Rate from SpO2 Sensor 78 Pulse Rhythm [Apical] Respiratory Rate 20 Respiratory Effort / Characteristics Respiratory Depth Blood Pressure 74/45 L Blood Pressure [Left Arm] Blood Pressure Mean 55 Blood Pressure Mean [Left Arm] Blood Pressure Position [Left Arm] Pulse Oximetry 90 Oxygen Delivery Method Fraction of Inspired Oxygen Sepsis Recent Fever Within 48 Hours Sepsis New/Unexplained Change in Mental Status Sepsis Action Taken by Nursing End-Tidal CO2 01/07/24 20:18 01/07/24 20:19 01/07/24 20:35 Temperature Temperature Source Pulse Rate Pulse Rate [Apical] Pulse Rate from SpO2 Sensor Pulse Rhythm [Apical] Respiratory Rate Respiratory Effort / Characteristics Respiratory Depth Blood Pressure 75/46 L 83/50 L 119/65 Blood Pressure [Left Arm] Blood Pressure Mean 57 55 88 Blood Pressure Mean [Left Arm] Blood Pressure Position [Left Arm] Pulse Oximetry Oxygen Delivery Method Fraction of Inspired Oxygen Sepsis Recent Fever Within 48 Hours Sepsis New/Unexplained Change in Mental Status Sepsis Action Taken by Nursing End-Tidal CO2 01/07/24 20:40 01/07/24 20:50 01/07/24 20:51 Temperature 36.0 C L Temperature Source Pulse Rate 80 Pulse Rate [Apical] 79 81 Pulse Rate from SpO2 Sensor 81 Pulse Rhythm [Apical] Respiratory Rate 20 20 20 Respiratory Effort / Characteristics Mechanically Ventilated Mechanically Ventilated Respiratory Depth Blood Pressure Blood Pressure [Left Arm] 108/63 105/63 Blood Pressure Mean Blood Pressure Mean [Left Arm] 78 77 Blood Pressure Position [Left Arm] Pulse Oximetry 98 97 97 Oxygen Delivery Method Mechanical Vent Mechanical Vent Fraction of Inspired Oxygen Sepsis Recent Fever Within 48 Hours Sepsis New/Unexplained Change in Mental Status Sepsis Action Taken by Nursing End-Tidal CO2 32 01/07/24 20:57 01/07/24 21:00 01/07/24 21:00 Temperature 36.0 C L Temperature Source Pulse Rate 82 Pulse Rate [Apical] Pulse Rate from SpO2 Sensor 81 Pulse Rhythm [Apical] Respiratory Rate 20 Respiratory Effort / Characteristics Respiratory Depth Blood Pressure 90/47 L 90/47 L Blood Pressure [Left Arm] Blood Pressure Mean 60 60 Blood Pressure Mean [Left Arm] Blood Pressure Position [Left Arm] Pulse Oximetry 99 Oxygen Delivery Method Fraction of Inspired Oxygen Sepsis Recent Fever Within 48 Hours Sepsis New/Unexplained Change in Mental Status Sepsis Action Taken by Nursing End-Tidal CO2 31 01/07/24 21:03 01/07/24 21:06 01/07/24 21:06 Temperature 36.0 C L 36.1 C L Temperature Source Pulse Rate 77 77 Pulse Rate [Apical] Pulse Rate from SpO2 Sensor 78 68 Pulse Rhythm [Apical] Respiratory Rate 20 20 Respiratory Effort / Characteristics Respiratory Depth Blood Pressure 81/50 L Blood Pressure [Left Arm] Blood Pressure Mean 55 Blood Pressure Mean [Left Arm] Blood Pressure Position [Left Arm] Pulse Oximetry 99 99 Oxygen Delivery Method Fraction of Inspired Oxygen Sepsis Recent Fever Within 48 Hours Sepsis New/Unexplained Change in Mental Status Sepsis Action Taken by Nursing End-Tidal CO2 31 30 01/07/24 21:09 01/07/24 21:10 01/07/24 21:10 Temperature 36.1 C L Temperature Source Pulse Rate 78 Pulse Rate [Apical] Pulse Rate from SpO2 Sensor 75 Pulse Rhythm [Apical] Respiratory Rate 20 Respiratory Effort / Characteristics Respiratory Depth Blood Pressure 88/53 L 88/53 L Blood Pressure [Left Arm] Blood Pressure Mean 62 62 Blood Pressure Mean [Left Arm] Blood Pressure Position [Left Arm] Pulse Oximetry 99 Oxygen Delivery Method Fraction of Inspired Oxygen Sepsis Recent Fever Within 48 Hours Sepsis New/Unexplained Change in Mental Status Sepsis Action Taken by Nursing End-Tidal CO2 30 01/07/24 21:12 Temperature 36.1 C L Temperature Source Pulse Rate 79 Pulse Rate [Apical] Pulse Rate from SpO2 Sensor 67 Pulse Rhythm [Apical] Respiratory Rate 20 Respiratory Effort / Characteristics Respiratory Depth Blood Pressure Blood Pressure [Left Arm] Blood Pressure Mean Blood Pressure Mean [Left Arm] Blood Pressure Position [Left Arm] Pulse Oximetry 99 Oxygen Delivery Method Fraction of Inspired Oxygen Sepsis Recent Fever Within 48 Hours Sepsis New/Unexplained Change in Mental Status Sepsis Action Taken by Nursing End-Tidal CO2 30 Laboratory Data 01/07/24 18:23 01/07/24 18:23 Lab Results 01/07/24 01/07/24 01/07/24 Range/Units 18:23 18:27 18:49 WBC 8.78 (4.8-10.8) K/ul RBC 4.68 L (4.70-6.10) M/uL Hgb 12.8 L (14.0-18.0) g/dl POC Hgb 13.3 L (14.0-18.0) g/dl Hct 39.9 L (42.0-52.0) % POC Hct 39 L (42-52) % MCV 85.3 (80.0-100.0) fL MCH 27.4 (25.0-34.0) pg MCHC 32.1 (32.0-36.0) g/dL RDW Std Deviation 42.9 (36.4-46.3) fL RDW Coeff of Erendira 13.9 (11.5-14.5) % Plt Count 173 (130-400) K/uL MPV 9.7 (9.4-12.4) fL Immature Gran % (Auto) 0.8 % Neut % (Auto) 46.7 % Lymph % (Auto) 44.9 % [place] % (Auto) 6.8 % Eos % (Auto) 0.6 % Baso % (Auto) 0.2 % Neut # (Auto) 4.10 (1.40-6.50) K/uL Lymph # (Auto) 3.94 H (1.20-3.40) K/uL [place] # (Auto) 0.60 H (0.11-0.59) K/uL Eos # (Auto) 0.05 (0.00-0.50) K/uL Baso # (Auto) 0.02 (0.00-0.20) K/uL Immature Gran # (Auto) 0.07 (0.01-0.20) K/uL PT 10.8 (9.0-12.0) Seconds INR 1.0 (0.9-1.1) APTT 24 (21-31) Seconds PTT Ratio 0.9 VBG pH 7.32 L (7.36-7.41) VBG pCO2 48 (38-50) mmHg VBG pO2 46 mmHg VBG HCO3 25 mmol/L VBG O2 Saturation 75.5 % VBG Base Excess -1.8 mEq/L POC Sodium 141 (135-144) mmol/L Sodium 140 (136-145) mmol/L POC Potassium 3.6 (3.3-5.0) mmol/L Potassium 3.6 (3.5-5.1) mmol/L POC Chloride 101 (101-112) mmol/L Chloride 103 (98-107) mmol/L Carbon Dioxide 26 (21-32) mmol/L POC Total CO2 22 L (24-31) mmol/L Anion Gap 11 (3-11) POC Anion Gap 23.0 (16-25) mmol/L POC BUN 19 H (7-18) mg/dl BUN 19 (6-23) mg/dl Creatinine 0.93 (0.6-1.4) mg/dl POC Creatinine 1.0 (0.6-1.3) mg/dl Est Cr Clr Drug Dosing 61.1 ml/min eGFR 80.97 BUN/Creatinine Ratio 20.4 H (10-20) Glucose 199 H (70-99(Fasting)) mg/dl POC Glucose (other) 197 H (70-99) mg/dl Lactate 4.2 H* (0.4-2.0) mmol/L Calcium 9.1 (8.6-10.3) mg/dl POC Ioniz Calcium Windy 1.14 (1.12-1.32) mmol/l Magnesium 1.7 (1.7-2.4) mg/dl Total Bilirubin 0.4 (0.2-1.0) mg/dl AST 52 H (13-39) U/L ALT 42 (7-52) U/L Alkaline Phosphatase 60 (34-104) U/L Total Creatine Kinase 50 (30-223) U/L Troponin I High Sens 12.6 (0-20) pg/ml B-Natriuretic Peptide 244 H (0-100) pg/ml Total Protein 6.8 (6.0-8.3) gm/dl Albumin 4.4 (3.4-5.0) gm/dl Globulin 2.4 L (2.5-4.0) gm/dl Albumin/Globulin Ratio 1.8 (0.9-2) Lipase 61 (11-82) U/L TSH 8.763 H (0.300-4.500) uIu/ml Free T4 0.82 (0.61-1.60) ng/dl Urine Color Urine Appearance (Clear) Urine pH (4.5-7.5) Ur Specific Enochs (1.000-1.030) Urine Protein (Negative) Urine Glucose (UA) (Negative) Urine Ketones (Negative) Urine Blood (Negative) Urine Nitrite (Negative) Urine Bilirubin (Negative) Urine Urobilinogen (Negative) Ur Leukocyte Esterase (Negative) Urine WBC (Auto) (0-5) /hpf Urine RBC (Auto) (0-2) /hpf U Hyaline Cast (Auto) (0-2) /lpf U Epithel Cells (Auto) (0-2) /hpf Urine Bacteria (Auto) (None Seen) 01/07/24 01/07/24 01/07/24 Range/Units 20:44 20:45 21:02 WBC (4.8-10.8) K/ul RBC (4.70-6.10) M/uL Hgb (14.0-18.0) g/dl POC Hgb (14.0-18.0) g/dl Hct (42.0-52.0) % POC Hct (42-52) % MCV (80.0-100.0) fL MCH (25.0-34.0) pg MCHC (32.0-36.0) g/dL RDW Std Deviation (36.4-46.3) fL RDW Coeff of Erendira (11.5-14.5) % Plt Count (130-400) K/uL MPV (9.4-12.4) fL Immature Gran % (Auto) % Neut % (Auto) % Lymph % (Auto) % [place] % (Auto) % Eos % (Auto) % Baso % (Auto) % Neut # (Auto) (1.40-6.50) K/uL Lymph # (Auto) (1.20-3.40) K/uL [place] # (Auto) (0.11-0.59) K/uL Eos # (Auto) (0.00-0.50) K/uL Baso # (Auto) (0.00-0.20) K/uL Immature Gran # (Auto) (0.01-0.20) K/uL PT (9.0-12.0) Seconds INR (0.9-1.1) APTT (21-31) Seconds PTT Ratio VBG pH (7.36-7.41) VBG pCO2 (38-50) mmHg VBG pO2 mmHg VBG HCO3 mmol/L VBG O2 Saturation % VBG Base Excess mEq/L POC Sodium (135-144) mmol/L Sodium (136-145) mmol/L POC Potassium (3.3-5.0) mmol/L Potassium (3.5-5.1) mmol/L POC Chloride (101-112) mmol/L Chloride (98-107) mmol/L Carbon Dioxide (21-32) mmol/L POC Total CO2 (24-31) mmol/L Anion Gap (3-11) POC Anion Gap (16-25) mmol/L POC BUN (7-18) mg/dl BUN (6-23) mg/dl Creatinine (0.6-1.4) mg/dl POC Creatinine (0.6-1.3) mg/dl Est Cr Clr Drug Dosing ml/min eGFR BUN/Creatinine Ratio (10-20) Glucose (70-99(Fasting)) mg/dl POC Glucose (other) (70-99) mg/dl Lactate 2.4 H* (0.4-2.0) mmol/L Calcium (8.6-10.3) mg/dl POC Ioniz Calcium Windy (1.12-1.32) mmol/l Magnesium (1.7-2.4) mg/dl Total Bilirubin (0.2-1.0) mg/dl AST (13-39) U/L ALT (7-52) U/L Alkaline Phosphatase (34-104) U/L Total Creatine Kinase (30-223) U/L Troponin I High Sens 77.9 H* D (0-20) pg/ml B-Natriuretic Peptide 186 H (0-100) pg/ml Total Protein (6.0-8.3) gm/dl Albumin (3.4-5.0) gm/dl Globulin (2.5-4.0) gm/dl Albumin/Globulin Ratio (0.9-2) Lipase (11-82) U/L TSH (0.300-4.500) uIu/ml Free T4 (0.61-1.60) ng/dl Urine Color Yellow Urine Appearance Clear (Clear) Urine pH 5.5 (4.5-7.5) Ur Specific Enochs 1.040 H (1.000-1.030) Urine Protein 1+ H (Negative) Urine Glucose (UA) 2+ H (Negative) Urine Ketones Trace H (Negative) Urine Blood 1+ H (Negative) Urine Nitrite Negative (Negative) Urine Bilirubin Negative (Negative) Urine Urobilinogen Negative (Negative) Ur Leukocyte Esterase Negative (Negative) Urine WBC (Auto) 0-5 (0-5) /hpf Urine RBC (Auto) 11-20 H (0-2) /hpf U Hyaline Cast (Auto) 0-2 (0-2) /lpf U Epithel Cells (Auto) 0-2 (0-2) /hpf Urine Bacteria (Auto) None Seen (None Seen) Administered Medications Propofol (Diprivan) 1,000 mg in 100 mls @ 15.48 mls/hr IV .Q6H28M [facility]; Protocol Stop: 01/10/24 18:29 Last Titration: 01/07/24 20:44 Dose: 30 mcg/kg/min, 15.5 mls/hr Documented By: Titration: 01/07/24 20:38 Dose: 35 mcg/kg/min, 18.1 mls/hr Documented By: Titration: 01/07/24 20:32 Dose: 30 mcg/kg/min, 15.5 mls/hr Documented By: Titration: 01/07/24 20:26 Dose: 20 mcg/kg/min, 10.3 mls/hr Documented By: Titration: 01/07/24 20:21 Dose: 0 mcg/kg/min, 0 mls/hr Documented By: Titration: 01/07/24 20:13 Dose: 30 mcg/kg/min, 15.5 mls/hr Documented By: Titration: 01/07/24 19:58 Dose: 40 mcg/kg/min, 20.6 mls/hr Documented By: Titration: 01/07/24 19:36 Dose: 35 mcg/kg/min, 18.1 mls/hr Documented By: Admin: 01/07/24 18:53 Dose: 20 mcg/kg/min, 10.3 mls/hr Documented By: DALILA Co-signed By: WADE Phenylephrine HCl (Phenylephrine/Nss) 25 mg in 250 mls @ 25.8 mls/hr IV .Q9H42M [facility]; Protocol Stop: 02/06/24 20:19 Last Admin: 01/07/24 21:07 Dose: 0.5 mcg/kg/min, 25.8 mls/hr Documented By: RASHAUN Co-signed By: TRISH Heparin Sodium/Dextrose (Heparin Sodium/Dextrose) 25,000 units in 500 mls @ 19 mls/hr IV .Q24H [facility]; Protocol Stop: 02/06/24 21:42 Last Admin: 01/07/24 22:27 Dose: 950 units/hr, 19 mls/hr Documented By: MARQUEZ Co-signed By: CHUCK Fentanyl Citrate (Fentanyl Citrate) 2,500 mcg in 250 mls @ 2.5 mls/hr IV .Q96H [facility]; Protocol Stop: 01/21/24 22:14 Last Admin: 01/07/24 22:30 Dose: 25 mcg/hr, 2.5 mls/hr Documented By: MARQUEZ Co-signed By: CHUCK Magnesium Sulfate/Dextrose (Magnesium Sulfate / D5w) 1 gm in 100 mls @ 50 mls/hr IV Q2H [facility] Stop: 01/08/24 04:14 Last Admin: 01/07/24 22:29 Dose: 50 mls/hr Documented By: MARQUEZ Pantoprazole Sodium (Protonix) 40 mg in 10 mls @ 5 mls/min IV BID [facility] Stop: 02/06/24 22:14 Last Admin: 01/07/24 22:26 Dose: 5 mls/min Documented By: MARQUEZ Propofol (Propofol Bolus From Bag) 20 mg IV Q5M PRN PRN Reason: Sedation Stop: 01/10/24 18:29 Last Admin: 01/07/24 19:53 Dose: 20 mg Documented By: RASHAUN Co-signed By: JOHNSON Admin: 01/07/24 19:48 Dose: 5 mg Documented By: RASHAUN Co-signed By: KM Discontinued Medications Aspirin (Aspirin Chew 324 Mg) 324 mg NG NOW STA Stop: 01/07/24 21:44 Last Admin: 01/07/24 23:08 Dose: Not Given Documented By: MARQUEZ Aspirin (Aspirin 300 Mg Supp) 300 mg MA ONE ONE Stop: 01/07/24 22:12 Last Admin: 01/07/24 22:26 Dose: 300 mg Documented By: MARQUEZ Fentanyl Citrate (Fentanyl Citrate Pf 100 Mcg/2 Ml Vial) 100 mcg IV NOW STA Stop: 01/07/24 20:01 Last Admin: 01/07/24 20:05 Dose: 100 mcg Documented By: RASHAUN Heparin Sodium/Dextrose (Heparin Iv Adult Wt-Based Low-Dose *No* Initial Bolus Protocol) 1 each IV ONE STA; Protocol Stop: 01/07/24 21:44 Last Admin: 01/07/24 22:27 Dose: 1 each Documented By: MARQUEZ Sodium Chloride (Nss) 500 mls @ 999 mls/hr IV .Q31M ONE Stop: 01/07/24 20:50 Last Infusion: 01/07/24 20:26 Dose: Infused Documented By: Admin: 01/07/24 20:23 Dose: 999 mls/hr Documented By: RASHAUN Potassium Chloride (K Vitaly / Wtr) 10 meq in 100 mls @ 100 mls/hr IV ONE ONE; Protocol Stop: 01/07/24 23:09 Last Admin: 01/07/24 22:25 Dose: 100 mls/hr Documented By: MARQUEZ Ioversol (Optiray 320 125ml) 119 ml IV ONCE ONE Stop: 01/07/24 19:14 Last Admin: 01/07/24 19:15 Dose: 119 ml Documented By: CLAIRE Miscellaneous (Rapid Sequence Induction Bag) Confirm Administered Dose 1 each N/A .STK-MED ONE Stop: 01/07/24 18:15 Last Admin: 01/07/24 18:30 Dose: Not Given Documented By: DALILA Ramaneous (Stat Iv Infusion Titration Per Protocol) 1 each N/A NOW STA Stop: 01/07/24 18:31 Last Admin: 01/07/24 20:39 Dose: Not Given Documented By: RASHAUN Phelan (Stat Iv Infusion Titration Per Protocol) 1 each N/A NOW STA Stop: 01/07/24 20:20 Last Admin: 01/07/24 23:08 Dose: Not Given Documented By: MARQUEZ Potassium Chloride (Potassium Chloride 20 Meq/15 Ml Udc) 40 meq PO NOW STA Stop: 01/07/24 22:11 Last Admin: 01/07/24 22:26 Dose: 40 meq Documented By: CF Propofol (Propofol Iv Emulsion 10 Mg/Ml 100 Ml Vial) Confirm Administered Dose 1,000 mg IV .STK-MED ONE Stop: 01/07/24 18:24 Last Admin: 01/07/24 18:54 Dose: Not Given Documented By: GGG Imaging Data Radiologist's Impression: Chest X-Ray 01/07/24 18:14 Chest radiograph, one view History: Chest pain Comparison: Findings: Single AP view of the chest performed. Mild, streaky bibasilar opacities in the lungs, left greater than right. No visualized pleural effusion. No pneumothorax. The endotracheal tube tip is approximately 5.4 cm above the irena. The NG/OG tube traverses the esophagus and descends into the stomach. The cardiomediastinal silhouette is within normal limits. Normal pulmonary vascularity. No evidence for lymphadenopathy. No visualized bony or soft tissue abnormality. Impression: ET tube as above. Mild streaky bibasilar opacity, representing atelectasis or consolidation. Electronically signed by Margarito Ortega 01-07-2024 8:05 PM Chest CTA 01/07/24 18:28 Exam(s): CTA CHEST IV Amt: 119 ml opti 320 EXAM: CT Angiography Chest With Intravenous Contrast CLINICAL HISTORY: Reason for exam: PE, carrdiac arrest. TECHNIQUE: Axial computed tomographic angiography images of the chest with intravenous contrast. CTDI is 24.7 mGy and DLP is 834.59 mGy-cm. Automated exposure control was utilized for the study. A dose lowering technique was utilized adhering to the principles of ALARA. MIP reconstructed images were created and reviewed. COMPARISON: None FINDINGS: Pulmonary arteries: Unremarkable. No pulmonary embolus identified. Aorta: Atherosclerotic changes in the aorta. No aortic aneurysm. Lungs: Dependent and lower lung atelectasis. Interlobular septal thickening, suggesting fluid overload. Nonspecific nodules bilaterally, measuring up to 7 mm. This could be related to fluid overload/edema versus nonspecific nodules. Follow-up exam could be performed after appropriate treatment or 3 to 6 months if clinically indicated. Pleural space: Unremarkable. No significant effusion. No pneumothorax. Heart: Mild cardiomegaly. Coronary artery. Angiographic calcifications. No significant pericardial effusion. No evidence of RV dysfunction. Mediastinum: Nonspecific shotty mediastinal and hilar lymph nodes. Bones/joints: Degenerative changes of the spine. No acute fracture. No dislocation. Soft tissues: Unremarkable. Lymph nodes: See above. Gallbladder and bile ducts: Cholelithiasis partially seen. Spleen: Small splenule. Tubes, lines and devices: Endotracheal tube terminates in the mid thoracic trachea. Enteric tube courses into the stomach. IMPRESSION: 1. No pulmonary embolus identified. 2. Interlobular septal thickening, suggesting fluid overload. 3. Nonspecific nodules bilaterally, measuring up to 7 mm. This could be related to fluid overload/edema versus nonspecific nodules. Follow-up exam could be performed after appropriate treatment or 3 to 6 months if clinically indicated. 4. Atherosclerotic changes in the aorta. No aortic aneurysm. Electronically signed by: Christine Hunter M.D. 01/07/24 19:[address] 01/07/24 18:28 Exam(s): CT HEAD Without Contrast EXAM: CT Head Without Intravenous Contrast CLINICAL HISTORY: Reason for exam: ams, post rosc. TECHNIQUE: Axial computed tomography images of the head/brain without intravenous contrast. CTDI is 36.31 mGy and DLP is 624.41 mGy-cm. Automated exposure control was utilized for the study. A dose lowering technique was utilized adhering to the principles of ALARA. COMPARISON: None FINDINGS: Brain: No acute infarct or hemorrhage identified. No extra-axial fluid collection. No mass effect or midline shift. Scattered areas of hypoattenuation in the supratentorial white matter likely represent chronic small vessel ischemic changes. Ventricles and sulci: Prominence of the ventricles and sulci is likely secondary to cerebral volume loss. Bones: Normal. No bony lesion or acute fracture. Subcutaneous tissues: Normal. Sinuses: Mild mucosal thickening in the left maxillary sinus and ethmoid air cells. Mastoid air cells: Normal. Orbits: Bilateral lens implants. Other: Atherosclerotic calcifications in the intracranial vasculature. IMPRESSION: 1. No acute intracranial abnormality. Further evaluation could be performed with MRI as clinically indicated. 2. Mild chronic small vessel ischemic changes and cerebral volume loss. Electronically signed by: Christine Hunter M.D. 01/07/24 19:29 PM Abdomen/Pelvis CT 01/07/24 18:49 Exam(s): CT ABDOMEN + PELVIS With Contrast IV Amt: 119 ml opti 320 EXAM: CT Abdomen and Pelvis With Intravenous Contrast CLINICAL HISTORY: Reason for exam: diarrhea, post arrest. TECHNIQUE: Axial computed tomography images of the abdomen and pelvis with intravenous contrast. CTDI is 26.75 mGy and DLP is 1452.22 mGy-cm. Automated exposure control was utilized for the study. A dose lowering technique was utilized adhering to the principles of ALARA. CONTRAST: Patient received 119 ml opti 320 of IV contrast COMPARISON: CT abdomen/pelvis on 12/03/2018 FINDINGS: Lung bases: Please see accompanying CT chest for further details. ABDOMEN: Liver: Unremarkable. No mass. Gallbladder and bile ducts: Cholelithiasis. No ductal dilation. Pancreas: Unremarkable. No mass. No ductal dilation. Spleen: Small splenule. Adrenals: Unremarkable. No mass. Kidneys and ureters: Small hypodensities in the kidneys are too small to definitively characterize. No hydronephrosis or obstructing ureteral stone. Stomach and bowel: Diverticulosis without evidence of diverticulitis. No small bowel obstruction. PELVIS: Appendix: Normal appendix. Bladder: Celeste catheter in an underdistended bladder. Thickened, trabeculated bladder with gas foci in the bladder. This could be secondary to catheterization and underdistention. Please correlate with urinalysis if concerned for cystitis. Reproductive: Unremarkable as visualized. ABDOMEN and PELVIS: Intraperitoneal space: Unremarkable. No free air. No significant fluid collection. Bones/joints: Degenerative changes of the spine. Probable small bone islands in the pelvic bones. No acute fracture. No dislocation. Soft tissues: Small fat-containing umbilical hernia. Vasculature: Atherosclerotic changes of the vasculature. No abdominal aortic aneurysm or dissection. Mild ectasia of the abdominal aorta. Lymph nodes: Unremarkable. No enlarged lymph nodes. Tubes, lines and devices: Enteric tube terminates in the gastric body. IMPRESSION: 1. Celeste catheter in an underdistended bladder. Thickened, trabeculated bladder with gas foci in the bladder. This could be secondary to catheterization and underdistention. Please correlate with urinalysis if concerned for cystitis. 2. Cholelithiasis. Electronically signed by: Christine Hunter M.D. 01/07/24 19:46 PM Discharge Plan Visit Data Chief Complaint: Cardiac Arrest/CPR Stated Complaint: POST ARREST ED Provider: Santiago Gutierrez Discharge Problem: Cardiac arrest, Respiratory failure, Ventricular fibrillation Patient Disposition: Admitted As Inpatient Discharge Instructions Interventions: ED Discharge Assessment Last Done: 01/07/24 21:25
[2024-01-07 18:39] LABS: Basophils # (auto) 0.02 K/uL (0.00-0.20); Basophils % (auto) 0.2 %; Eosinophils # (auto) 0.05 K/uL (0.00-0.50); Eosinophils % (auto) 0.6 %; Hematocrit (blood only) 39.9 % (42.0-52.0); Hemoglobin 12.8 g/dl (14.0-18.0); Immature Granulocytes # (auto) 0.07 K/uL (0.01-0.20); Immature Granulocytes % (auto) 0.8 %; Lymphocytes # (auto) 3.94 K/uL (1.20-3.40); Lymphocytes % (auto) 44.9 %; Mean Corpuscular Hemoglobin 27.4 pg (25.0-34.0); Mean Corpuscular Hgb Conc 32.1 g/dL (32.0-36.0); Mean Corpuscular Volume 85.3 fL (80.0-100.0); Mean Platelet Volume 9.7 fL (9.4-12.4); Monocytes % (auto) 6.8 %; Neutrophils % (auto) 46.7 %; Platelet Count 173 K/uL (130-400); RDW Coefficient of Variation 13.9 % (11.5-14.5); RDW Standard Deviation 42.9 fL (36.4-46.3); Red Blood Count 4.68 M/uL (4.70-6.10); White Blood Count 8.78 K/ul (4.8-10.8)
[2024-01-07 18:39] LABS: iSTAT Hemoglobin 13.3 g/dl (14.0-18.0); iSTAT Ionized Calcium 1.14 mmol/l (1.12-1.32); iSTAT Potassium 3.6 mmol/L (3.3-5.0)
[2024-01-07] MEDS: propofoL 1,000 MG/100 ML VIAL IV SCH (18:53)
[2024-01-07] MEDS: PROPOFOL IV EMULSION 10 MG/ML 100 ML VIAL IV ONE (18:54)
[2024-01-07 18:55] LABS: Albumin Globulin Ratio 1.8 (0.9-2); Albumin Level 4.4 gm/dl (3.4-5.0); BUN Creatinine Ratio 20.4 (10-20); Bilirubin,Total 0.4 mg/dl (0.2-1.0); Calcium 9.1 mg/dl (8.6-10.3); Creatinine Clr Calc Pharmacy 61.1 ml/min; Globulin 2.4 gm/dl (2.5-4.0); Magnesium 1.7 mg/dl (1.7-2.4); Potassium 3.6 mmol/L (3.5-5.1); Total Protein 6.8 gm/dl (6.0-8.3)
[2024-01-07 18:57] LABS: Base Excess VBG -1.8 mEq/L; HCO3 VBG 25 mmol/L; Oxygen Saturation VBG 75.5 %; PCO2 VBG 48 mmHg (38-50); PO2 VBG 46 mmHg; pH VBG 7.32 (7.36-7.41)
[2024-01-07 19:02] LABS: Troponin I High Sensitivity 12.6 pg/ml (0-20)
[2024-01-07 19:10] LABS: Thyroid Stimulating Hormone 8.763 uIu/ml (0.300-4.500)
[2024-01-07] MEDS: OPTIRAY 320 125ml IV ONE (19:15)
[2024-01-07 19:31] LABS: Partial Thromboplastin Ratio 0.9; Partial Thromboplastin Time 24 Seconds (21-31); Prothrombin Time 10.8 Seconds (9.0-12.0)
--- NOTE | 2024-01-07 19:31 | CT Scan Report ---
Exam(s): CT HEAD Without Contrast EXAM: CT Head Without Intravenous Contrast CLINICAL HISTORY: Reason for exam: ams, post rosc. TECHNIQUE: Axial computed tomography images of the head/brain without intravenous contrast. CTDI is 36.31 mGy and DLP is 624.41 mGy-cm. Automated exposure control was utilized for the study. A dose lowering technique was utilized adhering to the principles of ALARA. COMPARISON: None FINDINGS: Brain: No acute infarct or hemorrhage identified. No extra-axial fluid collection. No mass effect or midline shift. Scattered areas of hypoattenuation in the supratentorial white matter likely represent chronic small vessel ischemic changes. Ventricles and sulci: Prominence of the ventricles and sulci is likely secondary to cerebral volume loss. Bones: Normal. No bony lesion or acute fracture. Subcutaneous tissues: Normal. Sinuses: Mild mucosal thickening in the left maxillary sinus and ethmoid air cells. Mastoid air cells: Normal. Orbits: Bilateral lens implants. Other: Atherosclerotic calcifications in the intracranial vasculature. IMPRESSION: 1. No acute intracranial abnormality. Further evaluation could be performed with MRI as clinically indicated. 2. Mild chronic small vessel ischemic changes and cerebral volume loss. Electronically signed by: Christine Hunter M.D. 01/07/24 19:29 PM
--- NOTE | 2024-01-07 19:43 | CT Scan Report ---
Exam(s): CTA CHEST IV Amt: 119 ml opti 320 EXAM: CT Angiography Chest With Intravenous Contrast CLINICAL HISTORY: Reason for exam: PE, carrdiac arrest. TECHNIQUE: Axial computed tomographic angiography images of the chest with intravenous contrast. CTDI is 24.7 mGy and DLP is 834.59 mGy-cm. Automated exposure control was utilized for the study. A dose lowering technique was utilized adhering to the principles of ALARA. MIP reconstructed images were created and reviewed. COMPARISON: None FINDINGS: Pulmonary arteries: Unremarkable. No pulmonary embolus identified. Aorta: Atherosclerotic changes in the aorta. No aortic aneurysm. Lungs: Dependent and lower lung atelectasis. Interlobular septal thickening, suggesting fluid overload. Nonspecific nodules bilaterally, measuring up to 7 mm. This could be related to fluid overload/edema versus nonspecific nodules. Follow-up exam could be performed after appropriate treatment or 3 to 6 months if clinically indicated. Pleural space: Unremarkable. No significant effusion. No pneumothorax. Heart: Mild cardiomegaly. Coronary artery. Angiographic calcifications. No significant pericardial effusion. No evidence of RV dysfunction. Mediastinum: Nonspecific shotty mediastinal and hilar lymph nodes. Bones/joints: Degenerative changes of the spine. No acute fracture. No dislocation. Soft tissues: Unremarkable. Lymph nodes: See above. Gallbladder and bile ducts: Cholelithiasis partially seen. Spleen: Small splenule. Tubes, lines and devices: Endotracheal tube terminates in the mid thoracic trachea. Enteric tube courses into the stomach. IMPRESSION: 1. No pulmonary embolus identified. 2. Interlobular septal thickening, suggesting fluid overload. 3. Nonspecific nodules bilaterally, measuring up to 7 mm. This could be related to fluid overload/edema versus nonspecific nodules. Follow-up exam could be performed after appropriate treatment or 3 to 6 months if clinically indicated. 4. Atherosclerotic changes in the aorta. No aortic aneurysm. Electronically signed by: Christine Hunter M.D. 01/07/24 19:42 PM
[2024-01-07 19:44] LABS: T4 Free Thyroxine 0.82 ng/dl (0.61-1.60)
--- NOTE | 2024-01-07 19:47 | CT Scan Report ---
Exam(s): CT ABDOMEN + PELVIS With Contrast IV Amt: 119 ml opti 320 EXAM: CT Abdomen and Pelvis With Intravenous Contrast CLINICAL HISTORY: Reason for exam: diarrhea, post arrest. TECHNIQUE: Axial computed tomography images of the abdomen and pelvis with intravenous contrast. CTDI is 26.75 mGy and DLP is 1452.22 mGy-cm. Automated exposure control was utilized for the study. A dose lowering technique was utilized adhering to the principles of ALARA. CONTRAST: Patient received 119 ml opti 320 of IV contrast COMPARISON: CT abdomen/pelvis on 12/03/2018 FINDINGS: Lung bases: Please see accompanying CT chest for further details. ABDOMEN: Liver: Unremarkable. No mass. Gallbladder and bile ducts: Cholelithiasis. No ductal dilation. Pancreas: Unremarkable. No mass. No ductal dilation. Spleen: Small splenule. Adrenals: Unremarkable. No mass. Kidneys and ureters: Small hypodensities in the kidneys are too small to definitively characterize. No hydronephrosis or obstructing ureteral stone. Stomach and bowel: Diverticulosis without evidence of diverticulitis. No small bowel obstruction. PELVIS: Appendix: Normal appendix. Bladder: Celeste catheter in an underdistended bladder. Thickened, trabeculated bladder with gas foci in the bladder. This could be secondary to catheterization and underdistention. Please correlate with urinalysis if concerned for cystitis. Reproductive: Unremarkable as visualized. ABDOMEN and PELVIS: Intraperitoneal space: Unremarkable. No free air. No significant fluid collection. Bones/joints: Degenerative changes of the spine. Probable small bone islands in the pelvic bones. No acute fracture. No dislocation. Soft tissues: Small fat-containing umbilical hernia. Vasculature: Atherosclerotic changes of the vasculature. No abdominal aortic aneurysm or dissection. Mild ectasia of the abdominal aorta. Lymph nodes: Unremarkable. No enlarged lymph nodes. Tubes, lines and devices: Enteric tube terminates in the gastric body. IMPRESSION: 1. Celeste catheter in an underdistended bladder. Thickened, trabeculated bladder with gas foci in the bladder. This could be secondary to catheterization and underdistention. Please correlate with urinalysis if concerned for cystitis. 2. Cholelithiasis. Electronically signed by: Christine Hunter M.D. 01/07/24 19:46 PM
[2024-01-07] MEDS: PROPOFOL BOLUS FROM BAG IV PRN (19:48)
[2024-01-07] MEDS: fentaNYL citrate PF 100 MCG/2 ML VIAL IV STA (20:05)
--- NOTE | 2024-01-07 20:06 | XRay Report ---
Chest radiograph, one view History: Chest pain Comparison: Findings: Single AP view of the chest performed. Mild, streaky bibasilar opacities in the lungs, left greater than right. No visualized pleural effusion. No pneumothorax. The endotracheal tube tip is approximately 5.4 cm above the irena. The NG/OG tube traverses the esophagus and descends into the stomach. The cardiomediastinal silhouette is within normal limits. Normal pulmonary vascularity. No evidence for lymphadenopathy. No visualized bony or soft tissue abnormality. Impression: ET tube as above. Mild streaky bibasilar opacity, representing atelectasis or consolidation. Electronically signed by Margarito Ortega 01-07-2024 8:05 PM
[2024-01-07] MEDS: SODIUM CHLORIDE 0.9% 500 ML IV ONE (20:23)
[2024-01-07] MEDS: STAT IV Infusion **Titration per Protocol STA ×2 (20:39→23:08)
--- NOTE | 2024-01-07 21:04 | Critical Care Consultation ---
Date of Consultation January 07, 2024 Assessment & Plan (1) Ventricular fibrillation: (2) Cardiac arrest: (3) Respiratory failure: (4) Aortic valve sclerosis: (5) Diabetes mellitus, type II: (6) Dyslipidemia: (7) HTN (hypertension): Plan Reason Critically Ill: 83 YOM presents following Vfib arrest with ROSC, now intubated and sedated and on mechanical ventilation. To ICU to follow hemodynamics, neurological status, acid base management and electrolyte management. Neuro - Concern for Anoxic injury. Sedation for mechanical ventilation CAM ICU: [facility] - Patient sedated on propofol at time of evaluation however prior to intubation was reported with no good indicator of spontaneous movement and with agonal breathing - GCS- 3T on initial evaluation in the ER--on arrival to ICU patient GCS 6 - Pupils with NPI 4.0 - Post cardiac arrest with ROSC- will maintain normothermia- T <37.8, undertake active cooling if fevers are difficult to control - CT head without acute bleed, LVO or mention of loss of miranda/white matter- at this time too early to prognosticate neurological injury/recovery - follow with Pupillometer exams and neurological exams - Currently with gag and overbreathing vent - Consider EEG in morning off sedation - Consider advanced imaging at 48-72 hour curtis pending serial neurological exam results - Maintain normoglycemia, normalcarbia, normal oxia - Sedation- Propofol infusion, Fentanyl PRN Cardiac - Ventricular Fibrillation arrest with ROSC, LBBB, Aortic Stenosis - ECG without STEMI but with LBBB- lateral anterior with some st depressions- interventional cardiology contacted- no plan at this time to take to geophysical laboratory director - asa NE x1 on arrival - heparin infusion without bolus as likely to go to geophysical laboratory director in am - ECHO in am - will obtain POCUS at bedside in ICU eval volume status as well as squeeze, and any effusions- no pericardial effusion, contractility appears somewhat preserved, and volume status appears adequate - Pulmonary without b lines - If he has return of ventricular ectopy or arrest will load with amiodarone with continuous infusion - If hypotension occurs - start neosynepherine - NO evidence at this time of shock- lactate downtrending, renal function normal- mild pulmonary congestion, no peripheral edema, LFTS normal- BNP appropriate for age - With his aortic stenosis - will attempt volume challenge if needed and continue to follow with POCUS, UO, and lactate Respiratory - Respiratory failure - respiratory failure secondary to post arrest encephalopathy- minimal vent settings at this time - Continue ARDSnet LOW PEEP, HIGH FIO2 algorithm - SBT and wean when appropriate from hemodynamic and neurological perspective GI - No acute needs - NPO - OGT to LIWS RENAL/LYTES - hypomag - No acute needs, bicarb and renal function persevered at this time- follow daily - replete mag to > 2.0, replete K to ~4.5 - NO acute needs - Celeste to gravity ENDO - DMII - ICU hyperglycemic protocol - goal <180mg/dl HEME - NO acute needs ID - Follow up on UA, may have mild aspiration on CT chest - for now follow fever curve and UA- initiate abx if increase in fever curve, or oxygenation needs with poss aspiration LINES/IV ACCESS - PIV, Celeste, ETT, OGT Continue use of these lines - pending clinical course- may need CVL and arterial lines- consent obtained from as delegated to me by Dr. Vega DVT PROPHYLAXIS - SCDS, Heparin infusion Family: Currently would like patient to remain full code to see how he progresses. They understand that if he undergoes another arrest with CPR that his chances of favorable neurological recovery decreases. The understands and wants to give him an opportunity, but will keep her abreast of how and if he progresses. They also understand that it is too early for neurological prognostication at this time as well. She was sure that he did not want to remain on prolonged life support. DISPO: ICU until hemodynamics proven stable, rhythm stable, and when weaned from mechanical ventilation I have personally spent 55 minutes of critical care time in the direct management of this patient. This is a life/limb threatening event. This includes time spent evaluating patient, direct bedside care, chart review, placing orders, interpretation of diagnostic studies, discussion with consultants, patient, and family members, as well as other required patient management activities. This time is exclusive of all separately billable procedures, separate from and in addition to any other critical care service time. Thank you for allowing us to participate in the care of this patient. Please refer to my attending physician's documentation for any further recommendations. Supervising Physician Co-Signing Physician Notes Patient seen and examined. EMR reviewed. Discussed with critical care VERENICE and agree with assessment plan as noted. 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 Patient was brought to the EMD this afternoon following a cardiac arrest at the [employer] arena. Patient is accompanied by his grandson and . They report that the patient did have some diarrhea over the past 2-3 days that seemed to resolve today, but did note some stomach upset today for which he took alkaseltzer. He seemed well when they left for the game. The grandson states that they walked up about 15 stairs to get to their seats and the patient did this without needing to stop, and did not say he had any chest pain or difficulty breathing. They were talking and waiting for the game to start, and the grandson felt like Russ was nudging him so he looked over and he was slumped over and not responding. Once EMS was on scene he received 2 defibrillations and CPR for VFIB, no medications were given per report. ROSC was obtained and was transferred to [facility]. In the EMD the patient was not arousable and with agonal breathing, no brisk spontaneous movements were noted either, for this he was intubated and sedated. Multiple ECGs were obtained by the EMD, initial lab work was completed to include HsCTNI and lactate. He had CTA of the chest, CT of abdomen/pelvis and CT of the head completed. There was no pulmonary embolism noted, no rib fractures or pn eumothorax reported. CT head without acute bleed or LVO or mention of loss of miranda/white differential, CT abd/pelvis with no acute findings. On his ECG he was noted with LBBB which and some ST depressions in latera/anterol leads. EMD physician did discuss the case with Dr. Cloud for interventional cardiology, at this time he did not recommned urgent catherization, however would evaluate in am. Admitting service discussed case with patient's cardiology group. Patient will be brought to the ICU maintain sedation, ventilation, trend hemodyanmics, supportive care. Patient was recently found to have moderate to severe aortic stenosis on recent ECHO that he had completed for workup of carpral tunnel surgery. It was recommended that he proceed with workup for TAVR to include CT chest, Cath, and repeat ECHO, he has not undertaken this at this time. CODE: FULL Allergies Allergy/AdvReac Type Severity Reaction Status Date / Time No Known Allergies Allergy Verified 01/07/24 19:19 Home Medications Medication Instructions Recorded Confirmed Type atorvastatin 40 mg tablet 40 mg PO QAM 12/03/18 01/07/24 History cholecalciferol (vitamin D3) 25 1,000 unit PO QAM 12/03/18 01/07/24 History mcg (1,000 unit) capsule lisinopril 10 0.5 tab PO QAM 12/03/18 01/07/24 History mg-hydrochlorothiazide 12.5 mg tablet empagliflozin 25 mg tablet 25 mg PO QAM 06/29/22 01/07/24 History (Jardiance) ascorbic acid (vitamin C) 125 mg 125 mg PO DAILY 01/07/24 01/07/24 History chewable tablet (Vitamin C) cyanocobalamin (vitamin B-12) 100 100 mcg PO DAILY 01/07/24 01/07/24 History mcg tablet glipizide 5 mg tablet, extended 5 mg PO QAM 01/07/24 01/07/24 History release 24 hr metformin 1,000 mg tablet 1,000 mg PO BID 01/07/24 01/07/24 History Patient History Medical History Aortic valve sclerosis followed with Dr Velasquez Diabetes mellitus, type 2 NIDDM History of anemia r/t GI bleed in 11/2018. EGD and x5 units of blood History of GI bleed (11/2018) Hypertension Hyperlipidemia History of COVID-29 Nov 2021 > not hospitalized Surgical History S/P carpal tunnel release (05/15/23) right History of left cataract extraction History of tooth extraction History of tonsillectomy History of esophagogastroduodenoscopy (EGD) 12/04/2018. propofol no issues. History of colonoscopy 10/2010 colonoscopy: Sigmoid diverticulosis Family History Father Diabetes Bladder cancer Mother Diabetes Other No family history of adverse response to anesthesia Social History Smoking Status: Unknown if ever smoked Tobacco Type: Cigarettes Second Hand Exposure: No; Do You Dip or Chew Tobacco: No; Hx Alcohol Use: No Hx Substance Use: No Preferred Language: Urdu Communication Ability: Effective Office Machine Punch Operator Required: No Beliefs That Will Affect Care: None Current Living Situation: Spouse Other Information That Helps Us Care for You: No Feels Safe at Home: Yes Assistive Devices: Hearing Aid - Bilateral Review of Systems Review of Systems: unable to assess secondary to intubation and sedation Physical Exam Physical Exam: PHYSICAL EXAM: General: intubated and sedated Head: Normocephalic, atraumatic Neuro: No spontaneous movement noted, pupils 3-2 sluggish, no grimace to pain, does cough and gag against the tube and ventilator, and is overbreathing the ventilator Chest: equal rise and fall of the chest, no accessory muscle use, no heaves or thrills, scattered crackles, Cardiac: Regular rate and rhythm, telemetry reviewed- NSR- ST, skin warm dry, cap refill <3 seconds, peripheral pulses +2 no JVD, Grade III systolic murmur with radiation to carotids, grade II systolic murmur with radiation to axialle. GI: NABS x 4 quadrants, soft, nontender to palpation, no rebound, guarding or tenderness : Celeste to gravity draining light sylvia urine Skin: no rash or erythema Results & Data Results & Data Vital Signs (Past 12 Hours) Vital Signs Temp Pulse Pulse Resp BP BP Pulse Ox 01/07/24 20:40 79 20 108/63 98 01/07/24 20:35 119/65 01/07/24 20:19 83/50 L 01/07/24 20:18 75/46 L 01/07/24 20:18 36.3 C L 78 20 90 01/07/24 20:17 74/45 L 01/07/24 20:16 85 01/07/24 20:15 75/46 L 01/07/24 20:11 80/52 L 01/07/24 20:09 36.3 C L 87 20 97 01/07/24 20:00 122/78 01/07/24 19:50 128/79 01/07/24 19:50 108 H 21 128/79 96 01/07/24 19:42 36.4 C L 118 H 20 95 01/07/24 19:40 140/88 01/07/24 19:30 36.5 C 128 H 20 157/98 H 95 01/07/24 19:24 150/103 H 01/07/24 18:41 100 01/07/24 18:37 20 01/07/24 18:33 130 H 01/07/24 18:15 35.6 C L 125 H 194/122 H 100 O2 Del Method FiO2 01/07/24 20:40 Mechanical Vent 01/07/24 20:35 01/07/24 20:19 01/07/24 20:18 01/07/24 20:18 01/07/24 20:17 01/07/24 20:16 01/07/24 20:15 01/07/24 20:11 01/07/24 20:09 01/07/24 20:00 01/07/24 19:50 01/07/24 19:50 Mechanical Vent 01/07/24 19:42 01/07/24 19:40 01/07/24 19:30 01/07/24 19:24 01/07/24 18:41 Mechanical Vent 01/07/24 18:37 70 01/07/24 18:33 01/07/24 18:15 Mechanical Vent Laboratory Results Abnormal lab results 01/07/24 01/07/24 01/07/24 Range/Units 18:23 18:27 18:49 RBC 4.68 L (4.70-6.10) M/uL Hgb 12.8 L (14.0-18.0) g/dl POC Hgb 13.3 L (14.0-18.0) g/dl Hct 39.9 L (42.0-52.0) % POC Hct 39 L (42-52) % Lymph # (Auto) 3.94 H (1.20-3.40) K/uL [place] # (Auto) 0.60 H (0.11-0.59) K/uL VBG pH 7.32 L (7.36-7.41) POC Total CO2 22 L (24-31) mmol/L POC BUN 19 H (7-18) mg/dl BUN/Creatinine Ratio 20.4 H (10-20) Glucose 199 H (70-99(Fasting)) mg/dl POC Glucose (other) 197 H (70-99) mg/dl Lactate 4.2 H* (0.4-2.0) mmol/L AST 52 H (13-39) U/L B-Natriuretic Peptide 244 H (0-100) pg/ml Globulin 2.4 L (2.5-4.0) gm/dl TSH 8.763 H (0.300-4.500) uIu/ml 01/07/24 Range/Units 20:44 RBC (4.70-6.10) M/uL Hgb (14.0-18.0) g/dl POC Hgb (14.0-18.0) g/dl Hct (42.0-52.0) % POC Hct (42-52) % Lymph # (Auto) (1.20-3.40) K/uL [place] # (Auto) (0.11-0.59) K/uL VBG pH (7.36-7.41) POC Total CO2 (24-31) mmol/L POC BUN (7-18) mg/dl BUN/Creatinine Ratio (10-20) Glucose (70-99(Fasting)) mg/dl POC Glucose (other) (70-99) mg/dl Lactate 2.4 H* (0.4-2.0) mmol/L AST (13-39) U/L B-Natriuretic Peptide (0-100) pg/ml Globulin (2.5-4.0) gm/dl TSH (0.300-4.500) uIu/ml Diagnostic Findings Chest X-Ray 01/07/24 18:14 Chest radiograph, one view History: Chest pain Comparison: Findings: Single AP view of the chest performed. Mild, streaky bibasilar opacities in the lungs, left greater than right. No visualized pleural effusion. No pneumothorax. The endotracheal tube tip is approximately 5.4 cm above the irena. The NG/OG tube traverses the esophagus and descends into the stomach. The cardiomediastinal silhouette is within normal limits. Normal pulmonary vascularity. No evidence for lymphadenopathy. No visualized bony or soft tissue abnormality. Impression: ET tube as above. Mild streaky bibasilar opacity, representing atelectasis or consolidation. Electronically signed by Margarito Ortega 01-07-2024 8:05 PM Chest CTA 01/07/24 18:28 Exam(s): CTA CHEST IV Amt: 119 ml opti 320 EXAM: CT Angiography Chest With Intravenous Contrast CLINICAL HISTORY: Reason for exam: PE, carrdiac arrest. TECHNIQUE: Axial computed tomographic angiography images of the chest with intravenous contrast. CTDI is 24.7 mGy and DLP is 834.59 mGy-cm. Automated exposure control was utilized for the study. A dose lowering technique was utilized adhering to the principles of ALARA. MIP reconstructed images were created and reviewed. COMPARISON: None FINDINGS: Pulmonary arteries: Unremarkable. No pulmonary embolus identified. Aorta: Atherosclerotic changes in the aorta. No aortic aneurysm. Lungs: Dependent and lower lung atelectasis. Interlobular septal thickening, suggesting fluid overload. Nonspecific nodules bilaterally, measuring up to 7 mm. This could be related to fluid overload/edema versus nonspecific nodules. Follow-up exam could be performed after appropriate treatment or 3 to 6 months if clinically indicated. Pleural space: Unremarkable. No significant effusion. No pneumothorax. Heart: Mild cardiomegaly. Coronary artery. Angiographic calcifications. No significant pericardial effusion. No evidence of RV dysfunction. Mediastinum: Nonspecific shotty mediastinal and hilar lymph nodes. Bones/joints: Degenerative changes of the spine. No acute fracture. No dislocation. Soft tissues: Unremarkable. Lymph nodes: See above. Gallbladder and bile ducts: Cholelithiasis partially seen. Spleen: Small splenule. Tubes, lines and devices: Endotracheal tube terminates in the mid thoracic trachea. Enteric tube courses into the stomach. IMPRESSION: 1. No pulmonary embolus identified. 2. Interlobular septal thickening, suggesting fluid overload. 3. Nonspecific nodules bilaterally, measuring up to 7 mm. This could be related to fluid overload/edema versus nonspecific nodules. Follow-up exam could be performed after appropriate treatment or 3 to 6 months if clinically indicated. 4. Atherosclerotic changes in the aorta. No aortic aneurysm. Electronically signed by: Christine Hunter M.D. 01/07/24 19:[address] 01/07/24 18:28 Exam(s): CT HEAD Without Contrast EXAM: CT Head Without Intravenous Contrast CLINICAL HISTORY: Reason for exam: ams, post rosc. TECHNIQUE: Axial computed tomography images of the head/brain without intravenous contrast. CTDI is 36.31 mGy and DLP is 624.41 mGy-cm. Automated exposure control was utilized for the study. A dose lowering technique was utilized adhering to the principles of ALARA. COMPARISON: None FINDINGS: Brain: No acute infarct or hemorrhage identified. No extra-axial fluid collection. No mass effect or midline shift. Scattered areas of hypoattenuation in the supratentorial white matter likely represent chronic small vessel ischemic changes. Ventricles and sulci: Prominence of the ventricles and sulci is likely secondary to cerebral volume loss. Bones: Normal. No bony lesion or acute fracture. Subcutaneous tissues: Normal. Sinuses: Mild mucosal thickening in the left maxillary sinus and ethmoid air cells. Mastoid air cells: Normal. Orbits: Bilateral lens implants. Other: Atherosclerotic calcifications in the intracranial vasculature. IMPRESSION: 1. No acute intracranial abnormality. Further evaluation could be performed with MRI as clinically indicated. 2. Mild chronic small vessel ischemic changes and cerebral volume loss. Electronically signed by: Christine Hunter M.D. 01/07/24 19:29 PM Abdomen/Pelvis CT 01/07/24 18:49 Exam(s): CT ABDOMEN + PELVIS With Contrast IV Amt: 119 ml opti 320 EXAM: CT Abdomen and Pelvis With Intravenous Contrast CLINICAL HISTORY: Reason for exam: diarrhea, post arrest. TECHNIQUE: Axial computed tomography images of the abdomen and pelvis with intravenous contrast. CTDI is 26.75 mGy and DLP is 1452.22 mGy-cm. Automated exposure control was utilized for the study. A dose lowering technique was utilized adhering to the principles of ALARA. CONTRAST: Patient received 119 ml opti 320 of IV contrast COMPARISON: CT abdomen/pelvis on 12/03/2018 FINDINGS: Lung bases: Please see accompanying CT chest for further details. ABDOMEN: Liver: Unremarkable. No mass. Gallbladder and bile ducts: Cholelithiasis. No ductal dilation. Pancreas: Unremarkable. No mass. No ductal dilation. Spleen: Small splenule. Adrenals: Unremarkable. No mass. Kidneys and ureters: Small hypodensities in the kidneys are too small to definitively characterize. No hydronephrosis or obstructing ureteral stone. Stomach and bowel: Diverticulosis without evidence of diverticulitis. No small bowel obstruction. PELVIS: Appendix: Normal appendix. Bladder: Celeste catheter in an underdistended bladder. Thickened, trabeculated bladder with gas foci in the bladder. This could be secondary to catheterization and underdistention. Please correlate with urinalysis if concerned for cystitis. Reproductive: Unremarkable as visualized. ABDOMEN and PELVIS: Intraperitoneal space: Unremarkable. No free air. No significant fluid collection. Bones/joints: Degenerative changes of the spine. Probable small bone islands in the pelvic bones. No acute fracture. No dislocation. Soft tissues: Small fat-containing umbilical hernia. Vasculature: Atherosclerotic changes of the vasculature. No abdominal aortic aneurysm or dissection. Mild ectasia of the abdominal aorta. Lymph nodes: Unremarkable. No enlarged lymph nodes. Tubes, lines and devices: Enteric tube terminates in the gastric body. IMPRESSION: 1. Celeste catheter in an underdistended bladder. Thickened, trabeculated bladder with gas foci in the bladder. This could be secondary to catheterization and underdistention. Please correlate with urinalysis if concerned for cystitis. 2. Cholelithiasis. Electronically signed by: Christine Hunter M.D. 01/07/24 19:46 PM Medications Administered Home Medications atorvastatin 40 mg tablet 40 mg PO QAM 12/03/18 [History Confirmed 01/07/24] cholecalciferol (vitamin D3) 25 mcg (1,000 unit) capsule 1,000 unit PO QAM 12/03/18 [History Confirmed 01/07/24] lisinopril 10 mg-hydrochlorothiazide 12.5 mg tablet 0.5 tab PO QAM 12/03/18 [History Confirmed 01/07/24] empagliflozin 25 mg tablet (Jardiance) 25 mg PO QAM 06/29/22 [History Confirmed 01/07/24] ascorbic acid (vitamin C) 125 mg chewable tablet (Vitamin C) 125 mg PO DAILY 01/07/24 [History Confirmed 01/07/24] cyanocobalamin (vitamin B-12) 100 mcg tablet 100 mcg PO DAILY 01/07/24 [History Confirmed 01/07/24] glipizide 5 mg tablet, extended release 24 hr 5 mg PO QAM 01/07/24 [History Confirmed 01/07/24] metformin 1,000 mg tablet 1,000 mg PO BID 01/07/24 [History Confirmed 01/07/24] Active Medications Propofol (Diprivan) 1,000 mg in 100 mls @ 0 mls/hr IV .Q0M ALIX; Protocol Stop: 01/10/24 18:29 Last Titration: 01/07/24 20:44 Dose: 30 mcg/kg/min, 15.5 mls/hr Phenylephrine HCl (Phenylephrine/Nss) 25 mg in 250 mls @ 25.8 mls/hr IV .Q9H42M ALIX; Protocol Stop: 02/06/24 20:19 Last Admin: 01/07/24 21:07 Dose: 0.5 mcg/kg/min, 25.8 mls/hr Propofol (Propofol Bolus From Bag) 20 mg IV Q5M PRN PRN Reason: Sedation Stop: 01/10/24 18:29 Last Admin: 01/07/24 19:53 Dose: 20 mg ECG Additional Comments: Sinus tachycardia Left axis deviation Left bundle branch block Abnormal ECG When compared with ECG [id number] 18:20,(unconfirmed) Sinus rhythmhas replacedWide QRS rhythm Coding Level of Care Code 74802 CRITICAL CARE 1ST 30-74M Diagnoses Ventricular fibrillation I49.01 Cardiac arrest I46.9 Respiratory failure J96.90 Aortic valve sclerosis I35.8 Diabetes mellitus, type II E11.9 Dyslipidemia E78.5 HTN (hypertension) I10
[2024-01-07] MEDS: PHENYLEPHRINE/NSS 25 MG/250 ML BAG IV SCH (21:07)
[2024-01-07 21:19] LABS: Appearance Urine Clear (Clear); Bacteria Urine Automated None Seen (None Seen); Bilirubin Urine Negative (Negative); Blood Urine 1+ (Negative); Cast Urine Automated 0-2 /lpf (0-2); Color Urine Yellow; Epithelial Cell Urine Auto 0-2 /hpf (0-2); Glucose Urine UA 2+ (Negative); Ketones Urine Trace (Negative); Leukocyte Esterase Urine Negative (Negative); Nitrite Urine Negative (Negative); Protein Urine 1+ (Negative); Urobilinogen Urine Negative (Negative); WBC Urine Automated 0-5 /hpf (0-5); pH Urine 5.5 (4.5-7.5)
[2024-01-07] MEDS ORDERED: GLUCOSE 10 TAB/TUBE PO PRN (21:43)
[2024-01-07] MEDS ORDERED: GLUCAGON FOR INJ 1 MG VIAL SQ PRN (21:43)
[2024-01-07] MEDS ORDERED: CARBOHYDRATES FOR HYPOGLYCEMIA PO PRN (21:43)
[2024-01-07] MEDS ORDERED: GLUCOSE 40% GEL 15 GM TUBE PO PRN (21:43)
[2024-01-07] MEDS ORDERED: DEXTROSE 50% 50 ML SYRINGE IV PRN (21:43)
[2024-01-07] MEDS ORDERED: fentaNYL BOLUS from BAG IV PRN (22:06)
[2024-01-07] MEDS ORDERED: STAT IV Infusion **Titration per Protocol STA (22:06)
[2024-01-07] MEDS: POTASSIUM CHLORIDE / WTR 10 MEQ/100 ML PLCT IV ONE (22:25)
[2024-01-07] MEDS: ASPIRIN 300 MG SUPP PR ONE (22:26)
[2024-01-07] MEDS: POTASSIUM CHLORIDE 20 MEQ/15 ML UDC PO STA (22:26)
[2024-01-07] MEDS: PANTOprazole 40 MG/10 ML SYR IV SCH (22:26)
[2024-01-07] MEDS: Heparin IV Adult Wt-Based Low-Dose *NO* INITIAL Bolus Protocol IV STA (22:27)
[2024-01-07] MEDS: HEPARIN SODIUM/DEXTROSE 25,000 UNITS/500 ML BAG IV SCH (22:27)
[2024-01-07] MEDS: MAGNESIUM SULFATE / D5W 1 GM/100 ML BAG IV SCH (22:29)
[2024-01-07] MEDS: fentaNYL citrate 2,500 MCG/250 ML BAG IV SCH (22:30)
[2024-01-07] MEDS: ASPIRIN CHEW 324 MG NG STA (23:08)
--- NOTE | 2024-01-07 23:14 | Procedure Note ---
Procedure Note Date of Service January 07, 2024 ARTERIAL LINE PROCEDURE NOTE: Procedure: Arterial Line Placement Proceduralist: Rigoberto HILL ([facility]-) Attending: Dr. VEGA Indication: Monitoring on Pressors Anesthesia: [x]Lidocaine 1% [x]Consent was signed and placed on the chart prior to procedure, as delegated to me by Dr. Vega. Indication, risks, and benefits were explained at length to . No questions voiced. A time-out was completed verifying correct patient, procedure, site, p ositioning, and implant(s) or special equipment if applicable. Allens test was performed to ensure adequate perfusion. Patients RIGHT wrist was prepped and draped in the usual sterile fashion. Ultrasound guidance was used to counter cutter the vessel and aid needle placement. A 20g Arrow arterial line was introduced into the RIGHT RADIAL artery, brisk blood return was noted, the wire was advanced without resistance and the catheter was threaded also without resistance. The needle was then removed with appropriate blood return, pressure tubing was sterily attached and a good arterial waveform was observed. The patient tolerated the procedure without any immediate complications noted. Blood Loss: Minimal Complications: None immediate [facility] [place] Procedure Codes (Charges) Tubes, Drains, and Vasc Access Procedure 1: Tubes, Drains, and Vasc Access: [id number] Arterial Cath/Cannulation Sampling/Monitoring/Transfusion Coding CPT Codes Tubes, Drains, and Vasc Access - Tubes, Drains, and Vasc Access: [id number] Arterial Cath/Cannulation Sampling/Monitoring/Transfusion ([id number]) Additional Codes Date of Service ([facility].[email or web address])
[2024-01-07 23:19] LABS: iSTAT Art Bld Gas pCO2 Correct 42 mmHg (35-46); iSTAT Art Bld Gas pH Corrected 7.382 (7.35-7.45); iSTAT Arterial Blood Gas HCO3 25 meg/L (19-24); iSTAT Arterial Blood Gas pCO2 43 mmHg (35-46); iSTAT Arterial Blood Gas pH 7.38 (7.35-7.45); iSTAT Arterial Blood Gas pO2 141 mmHg (80-95); iSTAT Arterial Blood Gas pO2 C 140; iSTAT Carbon Dioxide 26 mmol/L (24-31); iSTAT FiO2 40 %; iSTAT Hematocrit 38 % (42-52); iSTAT Hemoglobin 12.9 g/dl (14.0-18.0); iSTAT Potassium 4.3 mmol/L (3.3-5.0); iSTAT Sample Type Arterial; iSTAT Site Art Line; iSTAT Sodium 140 mmol/L (135-144); iSTAT SpO2 100
[2024-01-07] MEDS ORDERED: ACETAMINOPHEN 1,000 MG/100 ML VIAL IV PRN (23:22)
[2024-01-08] MEDS: LACTATED RINGER'S 250 ML IV ONE (00:05)
[2024-01-08] MEDS: INSULIN ASPART PER UNIT CHARGE SC SCH (01:19)
--- NOTE | 2024-01-08 04:09 | History & Physical Report ---
Date of Service January 07, 2024 Assessment & Plan (1) Cardiac arrest: Plan: 83-year-old male with past medical history significant for dyslipidemia, right thyroid nodule, hypertension, diabetes, severe aortic stenosis, systolic CHF, vitamin D deficiency, history of significant bleeding requiring transfusion of five units of blood in 2019 leading to cessation of daily aspirin therapy, history of tobacco use was brought in because of V-fib cardiac arrest. C urrently status post intubation. and family in the room. As per patient was having diarrhea for last 1 week. Today complained of some heartburn and took [place]. He also complained of back pain. He walks without support. Probably felt nauseous as per . Went to his hockey game with his grandson. Seemed he was doing okay initially. But then while talking mid sentence slumped over. EMS was called. As per grandson took about 5 minutes for EMS arrival and started CPR. After 2 rounds of CPR, received 200 J shock with cardiac conversion to sinus rhythm. Rhythm during the episode seems to be V-fib. Brought to the ER. In the ER patient was having agonal breathing and unresponsive. S/p intubation and started on propofol drip. Patient became hypotensive and started on pressors. Patient has a history of intraventricular conduction delay but recently found to have left bundle branch block which resulted decrease in the left ventricular function from 50% to 40% as per cardiology notes. Recent echo was done in November 12, 2023. S/p cardiac arrest V-fib arrest Received 2 rounds of CPR and 200 J shock Agonal breathing and unresponsive and was intubated in the ER Hypotension on pressors phenylephrine Discussed with cardiology Cardiology recommended aspirin and okay for IV heparin To keep potassium greater than 4.5 and to give magnesium Can start on amiodarone drip if patient develops ectopies per cardiology Initial lactic acid was 4.1 repeat is 2.4. CO2 26 Creatinine 0.[address] head okay CTA chest no PE. Possible fluid overload versus nonspecific note nodules CT abdomen pelvis. Cholelithiasis,otherwise unremarkable Will follow serial cardiac enzymes and echo Close monitoring ICU Appreciate cardiology inputs Appreciated critical care help Severe aortic stenosis Chronic systolic CHF EF 40 to 44% Monitor for volume overload History of GI bleed bleeding requiring 5 units of PRBCs In 2019 leading to cessation of aspirin Currently started on aspirin and low dose IV heparin Hemoglobin 12.8 we will monitor Hyperlipidemia On statin Diabetes Insulin sliding scale Will monitor History of hypertension Hold lisinopril hydrochlorothiazide patient currently hypotensive DVT prophylaxis IV heparin Disposition Close monitoring ICU Full code History of Present Illness Chief Complaint: V-fib cardiac arrest Primary Care Provider: Elvis Flores MD 83-year-old male with past medical history significant for dyslipidemia, right thyroid nodule, hypertension, diabetes, severe aortic stenosis, systolic CHF, vitamin D deficiency, history of significant bleeding requiring transfusion of five units of blood in 2019 leading to cessation of daily aspirin therapy, history of tobacco use was brought in because of V-fib cardiac arrest. Currently status post intubation. and family in the room. As per patient was having diarrhea for last 1 week. Today complained of some heartburn and took [place]. He also complained of back pain. He walks without support. Probably felt nauseous as per . Went to his [employer] game with his grandson. Seemed he was doing okay initially. But then while talking mid sentence slumped over. EMS was called. As per grandson took about 5 minutes for EMS arrival and started CPR. After 2 rounds of CPR, received 200 J shock with cardiac conversion to sinus rhythm. Rhythm during the episode seems to be V-fib. Brought to the ER. In the ER patient was having agonal breathing and unresponsive. S/p intubation and started on propofol drip. Patient became hypotensive and started on pressors. Patient has a history of intraventricular conduction delay but recently found to have left bundle branch block which resulted decrease in the left ventricular function from 50% to 40% as per cardiology notes. Recent echo was done in November 12, 2023. Past medical history. As mentioned above Past surgical history. Colonoscopy. EGD. Orchiopexy inguinal approach . Social history. . Quit smoking 2014. Alcohol occasional beer. No drug use. Family history. Father had bladder cancer. Diabetes. Sister has diabetes. Mother had heart disorder. Allergies Allergy/AdvReac Type Severity Reaction Status Date / Time No Known Allergies Allergy Verified 01/07/24 19:19 Home Medications Medication Instructions Recorded Confirmed Type atorvastatin 40 mg tablet 40 mg PO QAM 12/03/18 01/07/24 History cholecalciferol (vitamin D3) 25 1,000 unit PO QAM 12/03/18 01/07/24 History mcg (1,000 unit) capsule lisinopril 10 0.5 tab PO QAM 12/03/18 01/07/24 History mg-hydrochlorothiazide 12.5 mg tablet empagliflozin 25 mg tablet 25 mg PO QAM 06/29/22 01/07/24 History (Jardiance) ascorbic acid (vitamin C) 125 mg 125 mg PO DAILY 01/07/24 01/07/24 History chewable tablet (Vitamin C) cyanocobalamin (vitamin B-12) 100 100 mcg PO DAILY 01/07/24 01/07/24 History mcg tablet glipizide 5 mg tablet, extended 5 mg PO QAM 01/07/24 01/07/24 History release 24 hr metformin 1,000 mg tablet 1,000 mg PO BID 01/07/24 01/07/24 History Past Med/Surg History Problem List Ventricular fibrillation (Acute) Respiratory failure (Acute) Cardiac arrest (Acute) Bilateral carpal tunnel syndrome Right carpal tunnel syndrome Right trigger finger got injection Vitamin D deficiency Hypocalcemia Acute blood loss anemia Anemia (Acute) GI bleed (Acute) Aortic valve sclerosis (Chronic) follows with Dr. Velasquez Diabetes mellitus, type II (Chronic) NIDDM Dyslipidemia (Chronic) HTN (hypertension) (Chronic) Medical History Aortic valve sclerosis followed with Dr Velasquez Diabetes mellitus, type 2 NIDDM History of anemia r/t GI bleed in 11/2018. EGD and x5 units of blood History of GI bleed (11/2018) Hypertension Hyperlipidemia History of COVID-29 Nov 2021 > not hospitalized Surgical History S/P carpal tunnel release (05/15/23) right History of left cataract extraction History of tooth extraction History of tonsillectomy History of esophagogastroduodenoscopy (EGD) 12/04/2018. propofol no issues. 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 Head- atraumatic Eyes- Pupils pinpoint and non reactive to light Neck- no JVD. Lungs- clear to auscultation no wheezing or crackles Heart- regular rhythm; no murmur, no gallop. Abdomen- normal bowel sounds, soft, no distension. Extremities- no pretibial edema, no erythema seen Neuro- s/p intubation and sedation Results & Data Results & Data Vital Signs (Past 12 Hours) Vital Signs Temp Pulse Pulse Resp BP BP Pulse Ox 01/07/24 21:24 36.2 C L 70 20 100 01/07/24 21:20 101/61 01/07/24 21:20 101/61 01/07/24 21:14 99/63 L 01/07/24 21:14 99/63 L 01/07/24 21:12 36.1 C L 79 20 99 01/07/24 21:10 88/53 L 01/07/24 21:10 88/53 L 01/07/24 21:09 36.1 C L 78 20 99 01/07/24 21:06 81/50 L 01/07/24 21:06 36.1 C L 77 20 99 01/07/24 21:03 36.0 C L 77 20 99 01/07/24 21:00 90/47 L 01/07/24 21:00 90/47 L 01/07/24 20:57 36.0 C L 82 20 99 01/07/24 20:51 36.0 C L 80 20 97 01/07/24 20:50 81 20 105/63 97 01/07/24 20:40 79 20 108/63 98 01/07/24 20:35 119/65 01/07/24 20:19 83/50 L 01/07/24 20:18 75/46 L 01/07/24 20:18 36.3 C L 78 20 90 01/07/24 20:17 74/45 L 01/07/24 20:16 85 01/07/24 20:15 75/46 L 01/07/24 20:11 80/52 L 01/07/24 20:09 36.3 C L 87 20 97 01/07/24 20:00 122/78 01/07/24 19:50 128/79 01/07/24 19:50 108 H 21 128/79 96 01/07/24 19:42 36.4 C L 118 H 20 95 01/07/24 19:40 140/88 01/07/24 19:30 36.5 C 128 H 20 157/98 H 95 01/07/24 19:24 150/103 H 01/07/24 18:41 100 01/07/24 18:37 20 01/07/24 18:33 130 H 01/07/24 18:15 35.6 C L 125 H 194/122 H 100 O2 Del Method FiO2 01/07/24 21:24 01/07/24 21:20 01/07/24 21:20 01/07/24 21:14 01/07/24 21:14 01/07/24 21:12 01/07/24 21:10 01/07/24 21:10 01/07/24 21:09 01/07/24 21:06 01/07/24 21:06 01/07/24 21:03 01/07/24 21:00 01/07/24 21:00 01/07/24 20:57 01/07/24 20:51 01/07/24 20:50 Mechanical Vent 01/07/24 20:40 Mechanical Vent 01/07/24 20:35 01/07/24 20:19 01/07/24 20:18 01/07/24 20:18 01/07/24 20:17 01/07/24 20:16 01/07/24 20:15 01/07/24 20:11 01/07/24 20:09 01/07/24 20:00 01/07/24 19:50 01/07/24 19:50 Mechanical Vent 01/07/24 19:42 01/07/24 19:40 01/07/24 19:30 01/07/24 19:24 01/07/24 18:41 Mechanical Vent 01/07/24 18:37 70 01/07/24 18:33 01/07/24 18:15 Mechanical Vent Diagnostic Findings Laboratory Results WBC 8.78 K/ul (4.8-10.8) 01/07/24 18:23 RBC 4.68 M/uL (4.70-6.10) L 01/07/24 18:23 Hgb 12.8 g/dl (14.0-18.0) L 01/07/24 18:23 POC Hgb 12.9 g/dl (14.0-18.0) L 01/07/24 23:07 Hct 39.9 % (42.0-52.0) L 01/07/24 18:23 POC Hct 38 % (42-52) L 01/07/24 23:07 MCV 85.3 fL (80.0-100.0) 01/07/24 18:23 MCH 27.4 pg (25.0-34.0) 01/07/24 18:23 MCHC 32.1 g/dL (32.0-36.0) 01/07/24 18:23 RDW Std Deviation 42.9 fL (36.4-46.3) 01/07/24 18: RDW Coeff of Erendira 13.9 % (11.5-14.5) 01/07/24 18:23 Plt Count 173 K/uL (130-400) 01/07/24 18:23 MPV 9.7 fL (9.4-12.4) 01/07/24 18:23 Immature Gran % (Auto) 0.8 % 01/07/24 18:23 Neut % (Auto) 46.7 % 01/07/24 18:23 Lymph % (Auto) 44.9 % 01/07/24 18:23 [place] % (Auto) 6.8 % 01/07/24 18:23 Eos % (Auto) 0.6 % 01/07/24 18:23 Baso % (Auto) 0.2 % 01/07/24 18: Neut # (Auto) 4.10 K/uL (1.40-6.50) 01/07/24 18:23 Lymph # (Auto) 3.94 K/uL (1.20-3.40) H 01/07/24 18:23 [place] # (Auto) 0.60 K/uL (0.11-0.59) H 01/07/24 18:23 Eos # (Auto) 0.05 K/uL (0.00-0.50) 01/07/24 18:23 Baso # (Auto) 0.02 K/uL (0.00-0.20) 01/07/24 18:23 Immature Gran # (Auto) 0.07 K/uL (0.01-0.20) 01/07/24 18:23 PT 10.8 Seconds (9.0-12.0) 01/07/24 18:49 INR 1.0 (0.9-1.1) 01/07/24 18:49 APTT 24 Seconds (21-31) 01/07/24 18:49 PTT Ratio 0.9 01/07/24 18:49 Specimen Type Arterial 01/07/24 23:07 Sample Site Art Line 01/07/24 23:07 POC pH 7.38 (7.35-7.45) 01/07/24 23:07 POC pCO2 43 mmHg (35-46) 01/07/24 23:07 POC pO2 141 mmHg (80-95) H 01/07/24 23:07 POC HCO3 25 warren/L (19-24) H 01/07/24 23:07 POC Total CO2 26 mmol/L (24-31) 01/07/24 23:07 POC Base Excess 0.0 warren/L (-9-1.8) 01/07/24 23:07 O2 Sat Pulse Oximetry 100 01/07/24 23:07 ABG pH (Temp Correct) 7.382 (7.35-7.45) 01/07/24 23:07 ABG pCO2 (Temp Corrct 42 mmHg (35-46) 01/07/24 23:07 POC ABG pO2 at Pt Temp 140 01/07/24 23:07 POC ABG O2 Sat 99.0 % (90-95) H 01/07/24 23:07 Cyril Test NA 01/07/24 23:07 VBG pH 7.32 (7.36-7.41) L 01/07/24 18:49 VBG pCO2 48 mmHg (38-50) 01/07/24 18:49 VBG pO2 46 mmHg 01/07/24 18:49 VBG HCO3 25 mmol/L 01/07/24 18:49 VBG O2 Saturation 75.5 % 01/07/24 18:49 VBG Base Excess -1.8 mEq/L 01/07/24 18:49 O2 Delivery Device Ventilator 01/07/24 23:07 Vent Mode AC 01/07/24 23:07 POC FiO2 40 % 01/07/24 23:07 End Tidal CO2 33 01/07/24 23:07 POC Sodium 140 mmol/L (135-144) 01/07/24 23:07 Sodium 140 mmol/L (136-145) 01/07/24 18:23 POC Potassium 4.3 mmol/L (3.3-5.0) 01/07/24 23:07 Potassium 3.6 mmol/L (3.5-5.1) 01/07/24 18:23 POC Chloride 101 mmol/L (101-112) 01/07/24 18:27 Chloride 103 mmol/L (98-107) 01/07/24 18:23 Carbon Dioxide 26 mmol/L (21-32) 01/07/24 18:23 POC Total CO2 22 mmol/L (24-31) L 01/07/24 18:27 Anion Gap 11 (3-11) 01/07/24 18:23 POC Anion Gap 23.0 mmol/L (16-25) 01/07/24 18:27 POC BUN 19 mg/dl (7-18) H 01/07/24 18:27 BUN 19 mg/dl (6-23) 01/07/24 18:23 Creatinine 0.93 mg/dl (0.6-1.4) 01/07/24 18:23 POC Creatinine 1.0 mg/dl (0.6-1.3) 01/07/24 18:27 Est Cr Clr Drug Dosing 61.1 ml/min 01/07/24 18:23 eGFR 80.97 01/07/24 18:23 BUN/Creatinine Ratio 20.4 (10-20) H 01/07/24 18:23 Glucose 199 mg/dl (70-99(Fasting)) H 01/07/24 18:23 POC Glucose 153 mg/dl (70-99) H 01/08/24 01:17 POC Glucose (other) 197 mg/dl (70-99) H 01/07/24 18:27 Lactate 2.4 mmol/L (0.4-2.0) H* 01/07/24 20:44 Calcium 9.1 mg/dl (8.6-10.3) 01/07/24 18:23 POC Ioniz Calcium Windy 1.14 mmol/l (1.12-1.32) 01/07/24 18:27 Magnesium 1.7 mg/dl (1.7-2.4) 01/07/24 18:23 Total Bilirubin 0.4 mg/dl (0.2-1.0) 01/07/24 18:23 AST 52 U/L (13-39) H 01/07/24 18:23 ALT 42 U/L (7-52) 01/07/24 18:23 Alkaline Phosphatase 60 U/L (34-104) 01/07/24 18:23 Total Creatine Kinase 50 U/L (30-223) 01/07/24 18:23 Troponin I High Sens 77.9 pg/ml (0-20) H* D 01/07/24 20:45 B-Natriuretic Peptide 186 pg/ml (0-100) H 01/07/24 20:45 Total Protein 6.8 gm/dl (6.0-8.3) 01/07/24 18:23 Albumin 4.4 gm/dl (3.4-5.0) 01/07/24 18:23 Globulin 2.4 gm/dl (2.5-4.0) L 01/07/24 18:23 Albumin/Globulin Ratio 1.8 (0.9-2) 01/07/24 18:23 Lipase 61 U/L (11-82) 01/07/24 18:23 TSH 8.763 uIu/ml (0.300-4.500) H 01/07/24 18:23 Free T4 0.82 ng/dl (0.61-1.60) 01/07/24 18:23 Urine Color Yellow 01/07/24 21:02 Urine Appearance Clear (Clear) 01/07/24 21:02 Urine pH 5.5 (4.5-7.5) 01/07/24 21:02 Ur Specific [place] 1.040 (1.000-1.030) H 01/07/24 21:02 Urine Protein 1+ (Negative) H 01/07/24 21:02 Urine Glucose (UA) 2+ (Negative) H 01/07/24 21:02 Urine Ketones Trace (Negative) H 01/07/24 21:02 Urine Blood 1+ (Negative) H 01/07/24 21:02 Urine Nitrite Negative (Negative) 01/07/24 21:02 Urine Bilirubin Negative (Negative) 01/07/24 21:02 Urine Urobilinogen Negative (Negative) 01/07/24 21:02 Ur Leukocyte Esterase Negative (Negative) 01/07/24 21:02 Urine WBC (Auto) 0-5 /hpf (0-5) 01/07/24 21:02 Urine RBC (Auto) 11-20 /hpf (0-2) H 01/07/24 21:02 U Hyaline Cast (Auto) 0-2 /lpf (0-2) 01/07/24 21:02 U Epithel Cells (Auto) 0-2 /hpf (0-2) 01/07/24 21:02 Urine Bacteria (Auto) None Seen (None Seen) 01/07/24 21:02 Nasal Screen MRSA (PCR) Negative (Negative) 01/07/24 21:47 Impressions Chest X-Ray 01/07/24 18:14 Chest radiograph, one view History: Chest pain Comparison: Findings: Single AP view of the chest performed. Mild, streaky bibasilar opacities in the lungs, left greater than right. No visualized pleural effusion. No pneumothorax. The endotracheal tube tip is approximately 5.4 cm above the irena. The NG/OG tube traverses the esophagus and descends into the stomach. The cardiomediastinal silhouette is within normal limits. Normal pulmonary vascularity. No evidence for lymphadenopathy. No visualized bony or soft tissue abnormality. Impression: ET tube as above. Mild streaky bibasilar opacity, representing atelectasis or consolidation. Electronically signed by Margarito Ortega 01-07-2024 8:05 PM Chest CTA 01/07/24 18:28 Exam(s): CTA CHEST IV Amt: 119 ml opti 320 EXAM: CT Angiography Chest With Intravenous Contrast CLINICAL HISTORY: Reason for exam: PE, carrdiac arrest. TECHNIQUE: Axial computed tomographic angiography images of the chest with intravenous contrast. CTDI is 24.7 mGy and DLP is 834.59 mGy-cm. Automated exposure control was utilized for the study. A dose lowering technique was utilized adhering to the principles of ALARA. MIP reconstructed images were created and reviewed. COMPARISON: None FINDINGS: Pulmonary arteries: Unremarkable. No pulmonary embolus identified. Aorta: Atherosclerotic changes in the aorta. No aortic aneurysm. Lungs: Dependent and lower lung atelectasis. Interlobular septal thickening, suggesting fluid overload. Nonspecific nodules bilaterally, measuring up to 7 mm. This could be related to fluid overload/edema versus nonspecific nodules. Follow-up exam could be performed after appropriate treatment or 3 to 6 months if clinically indicated. Pleural space: Unremarkable. No significant effusion. No pneumothorax. Heart: Mild cardiomegaly. Coronary artery. Angiographic calcifications. No significant pericardial effusion. No evidence of RV dysfunction. Mediastinum: Nonspecific shotty mediastinal and hilar lymph nodes. Bones/joints: Degenerative changes of the spine. No acute fracture. No dislocation. Soft tissues: Unremarkable. Lymph nodes: See above. Gallbladder and bile ducts: Cholelithiasis partially seen. Spleen: Small splenule. Tubes, lines and devices: Endotracheal tube terminates in the mid thoracic trachea. Enteric tube courses into the stomach. IMPRESSION: 1. No pulmonary embolus identified. 2. Interlobular septal thickening, suggesting fluid overload. 3. Nonspecific nodules bilaterally, measuring up to 7 mm. This could be related to fluid overload/edema versus nonspecific nodules. Follow-up exam could be performed after appropriate treatment or 3 to 6 months if clinically indicated. 4. Atherosclerotic changes in the aorta. No aortic aneurysm. Electronically signed by: Christine Hunter M.D. 01/07/24 19:[address] 01/07/24 18:28 Exam(s): CT HEAD Without Contrast EXAM: CT Head Without Intravenous Contrast CLINICAL HISTORY: Reason for exam: ams, post rosc. TECHNIQUE: Axial computed tomography images of the head/brain without intravenous contrast. CTDI is 36.31 mGy and DLP is 624.41 mGy-cm. Automated exposure control was utilized for the study. A dose lowering technique was utilized adhering to the principles of ALARA. COMPARISON: None FINDINGS: Brain: No acute infarct or hemorrhage identified. No extra-axial fluid collection. No mass effect or midline shift. Scattered areas of hypoattenuation in the supratentorial white matter likely represent chronic small vessel ischemic changes. Ventricles and sulci: Prominence of the ventricles and sulci is likely secondary to cerebral volume loss. Bones: Normal. No bony lesion or acute fracture. Subcutaneous tissues: Normal. Sinuses: Mild mucosal thickening in the left maxillary sinus and ethmoid air cells. Mastoid air cells: Normal. Orbits: Bilateral lens implants. Other: Atherosclerotic calcifications in the intracranial vasculature. IMPRESSION: 1. No acute intracranial abnormality. Further evaluation could be performed with MRI as clinically indicated. 2. Mild chronic small vessel ischemic changes and cerebral volume loss. Electronically signed by: Christine Hunter M.D. 01/07/24 19:29 PM Abdomen/Pelvis CT 01/07/24 18:49 Exam(s): CT ABDOMEN + PELVIS With Contrast IV Amt: 119 ml opti 320 EXAM: CT Abdomen and Pelvis With Intravenous Contrast CLINICAL HISTORY: Reason for exam: diarrhea, post arrest. TECHNIQUE: Axial computed tomography images of the abdomen and pelvis with intravenous contrast. CTDI is 26.75 mGy and DLP is 1452.22 mGy-cm. Automated exposure control was utilized for the study. A dose lowering technique was utilized adhering to the principles of ALARA. CONTRAST: Patient received 119 ml opti 320 of IV contrast COMPARISON: CT abdomen/pelvis on 12/03/2018 FINDINGS: Lung bases: Please see accompanying CT chest for further details. ABDOMEN: Liver: Unremarkable. No mass. Gallbladder and bile ducts: Cholelithiasis. No ductal dilation. Pancreas: Unremarkable. No mass. No ductal dilation. Spleen: Small splenule. Adrenals: Unremarkable. No mass. Kidneys and ureters: Small hypodensities in the kidneys are too small to definitively characterize. No hydronephrosis or obstructing ureteral stone. Stomach and bowel: Diverticulosis without evidence of diverticulitis. No small bowel obstruction. PELVIS: Appendix: Normal appendix. Bladder: Celeste catheter in an underdistended bladder. Thickened, trabeculated bladder with gas foci in the bladder. This could be secondary to catheterization and underdistention. Please correlate with urinalysis if concerned for cystitis. Reproductive: Unremarkable as visualized. ABDOMEN and PELVIS: Intraperitoneal space: Unremarkable. No free air. No significant fluid collection. Bones/joints: Degenerative changes of the spine. Probable small bone islands in the pelvic bones. No acute fracture. No dislocation. Soft tissues: Small fat-containing umbilical hernia. Vasculature: Atherosclerotic changes of the vasculature. No abdominal aortic aneurysm or dissection. Mild ectasia of the abdominal aorta. Lymph nodes: Unremarkable. No enlarged lymph nodes. Tubes, lines and devices: Enteric tube terminates in the gastric body. IMPRESSION: 1. Celeste catheter in an underdistended bladder. Thickened, trabeculated bladder with gas foci in the bladder. This could be secondary to catheterization and underdistention. Please correlate with urinalysis if concerned for cystitis. 2. Cholelithiasis. Electronically signed by: Christine Hunter M.D. 01/07/24 19:46 PM ECG Additional Comments: ECG. Sinus tachycardia rate of 101. Left axis deviation. Left bundle branch block. ST depression lateral leads. Code Status & VTE Plan VTE Prophylaxis Plan VTE Prophylaxis will be ordered: Yes
--- NOTE | 2024-01-08 05:39 | Communication Note ---
Date of Service: January 08, 2024 Update: Patient opens eyes to name, eyes remain open, he is able to follow commands, and move all 4 extremities. His HR and blood pressure also appropriatley increased with stimulation, will provide 25mcg fentanyl bolus for comfort and vent synchrony. - Current sedation - Propofol 15mcg/kg/min - Fent PRN - Neosynepherine 1mcg/kg/min- should be able to wean off when awake - Will hold with EEG previously ordered this morning. Rigoberto HILL ([facility]-)
[2024-01-08 05:49] LABS: Basophils # (auto) 0.01 K/uL (0.00-0.20); Basophils % (auto) 0.1 %; Hematocrit (blood only) 39.3 % (42.0-52.0); Hemoglobin 12.8 g/dl (14.0-18.0); Immature Granulocytes # (auto) 0.07 K/uL (0.01-0.20); Immature Granulocytes % (auto) 0.6 %; Lymphocytes # (auto) 1.62 K/uL (1.20-3.40); Lymphocytes % (auto) 13.8 %; Mean Corpuscular Hemoglobin 27.1 pg (25.0-34.0); Mean Corpuscular Hgb Conc 32.6 g/dL (32.0-36.0); Mean Corpuscular Volume 83.3 fL (80.0-100.0); Mean Platelet Volume 9.5 fL (9.4-12.4); Monocytes # (auto) 0.86 K/uL (0.11-0.59); Monocytes % (auto) 7.3 %; Neutrophils % (auto) 78.2 %; Platelet Count 202 K/uL (130-400); RDW Coefficient of Variation 13.9 % (11.5-14.5); RDW Standard Deviation 42.6 fL (36.4-46.3); Red Blood Count 4.72 M/uL (4.70-6.10); White Blood Count 11.76 K/ul (4.8-10.8)
[2024-01-08 06:02] LABS: Albumin Level 4.1 gm/dl (3.4-5.0); BUN Creatinine Ratio 24.2 (10-20); Bilirubin,Total 0.4 mg/dl (0.2-1.0); Calcium 8.8 mg/dl (8.6-10.3); Magnesium 2.5 mg/dl (1.7-2.4); Phosphorus 3.8 mg/dl (2.5-4.9); Potassium 4.3 mmol/L (3.5-5.1); Total Protein 6.5 gm/dl (6.0-8.3)
[2024-01-08 06:15] LABS: ANTI-Xa, UFH(UnfractionatedHep 0.28 IU/ml (0.3-0.7)
[2024-01-08 07:10] LABS: Estimated Average Glucose 154 mg/dl
--- NOTE | 2024-01-08 07:23 | XRay Report ---
EXAM: XR chest 1V portable CLINICAL HISTORY: eval lines/tubes/lung rosenthal tgb/[id number] TECHNIQUE: An X-ray image of the chest is obtained in AP projection. COMPARISON: 01/07/2024. FINDINGS: Lines and tubes: ETT was noted with a tip 1.4cm from the irena. NG tube was noted with a tip in the stomach Pulmonary Parenchyma: No evidence of consolidation, collapse, or focal opacities. Bilateral perihilar increased vascular marking. No evidence of pleural effusion or pleural thickening. Heart and Mediastinum: Cardiomegaly is noted. No mediastinal widening or masses. No hilar or mediastinal lymphadenopathy. Bony Thorax: Bony thorax appears intact without fractures or deformities. Soft Tissues: Soft tissues overlying the chest wall are unremarkable. IMPRESSION: 1. ETT was noted with a tip 1.4cm from the riena, other than that no interval changes in comparison with the x-ray on 01/07/2024. 2. Bilateral perihilar increased vascular marking could be due to edema or vascular congestion. 3. Cardiomegaly. Electronically signed by Xavier Rios 01-08-2024 07:23 AM
--- NOTE | 2024-01-08 08:03 | Critical Care Progress Note ---
Date of Service January 08, 2024 Assessment & Plan (1) Ventricular fibrillation: (2) Cardiac arrest: (3) Respiratory failure: (4) Aortic valve sclerosis: (5) Diabetes mellitus, type II: (6) Dyslipidemia: (7) HTN (hypertension): Plan Reason Critically Ill: 83 YOM presents following Vfib arrest with ROSC, now intubated and sedated and on mechanical ventilation. To ICU to follow hemodynamics, neurological status, acid base management and electrolyte management. 24-hour events: Patient suffered [id number] V-fib cardiac arrest requiring extensive resuscitation. Intubated in the ER due to encephalopathy. Admitted to the ICU. Arterial line placed. Required low-dose phenylephrine to maintain blood pressure. Has not had recurrent issues of V-fib although does have frequent PACs suggesting potential R-on-T phenomenon precipitating arrest Recommendations Neuro -initial concern for anoxic encephalopathy however mental status appears significantly improved today. On low-dose of propofol and fentanyl pushes. Able to respond appropriately and follow commands. No indication for advanced imaging or additional neurodiagnostics at this point in time. Will plan on sedation break once were clear on which we will were taking from a cardiovascular standpoint. Cardiac - Ventricular Fibrillation arrest with ROSC, LBBB, last echo with aortic sclerosis without stenosis in 2019. Repeat echo pending. Unclear if the patient could have had R-on-T phenomenon. Troponin increased although this would be expected in the setting of CPR. Await echocardiogram. CT scan does show pulmonary vascular congestion with small pleural effusions. Continue to replace electrolytes. Will defer to cardiology decision regarding cardiac catheterization and antiarrhythmics. Continue heparin under the direction of cardiology. Should be able to wean phenylephrine to off as sedation is discontinued. Respiratory -intubated for ineffectual respirations in the emergency room after return of spontaneous circulation. Minimal vent settings this morning the patient likely can pursue SBT to assess for vent liberation however will hold off until determination is made on whether or not he is going to the [facility]. GI -hold tube feeding for now. If unable to extubate today, will initiate trophic feedings. RENAL/LYTES -replete electrolytes. Initiate ICU electrolyte replacement protocol. Blood gas acceptable. -hematuria. Unclear if this is related to traumatic Celeste placement exacerbated by concomitant heparin infusion. Follow clinically for now. Keep Celeste in place ENDO - history of diabetes with elevated hemoglobin A1c. Holding oral hypoglycemics (glipizide, Jardiance, and metformin). Insulin for now HEME -mild anemia. No indication for transfusion. Doubt hematuria is contributing. Follow clinically at this point in time. ID -no indication for antimicrobial therapy currently although the patient is at risk for aspiration pneumonitis/pneumonia. Follow clinically and trend fever curve as well as white blood cell count. LINES/IV ACCESS - PIV, Celeste, ETT, OGT Continue use of these lines DVT PROPHYLAXIS - SCDS, Heparin infusion DISPO: ICU until hemodynamics proven stable, rhythm stable, and when weaned from mechanical ventilation I have personally spent 40 minutes of critical care time in the direct management of this patient. This is a life/limb threatening event. This includes time spent evaluating patient, direct bedside care, chart review, placing orders, interpretation of diagnostic studies, discussion with consultants, patient, and family members, as well as other required patient management activities. This time is exclusive of all separately billable procedures, separate from and in addition to any other critical care service time. Admission and Anticipated Discharge Date Admission Date: January 07, 2024 Subjective Patient seen and examined. EMR reviewed. Discussed with bedside critical care nurse and on multidisciplinary rounds. Patient remains intubated and sedated. He is able to open his eyes and follow commands and nod head to questions. Appears neurologically intact Review of Systems Review of Systems: Unobtainable due to endotracheal tube Physical Exam Constitutional: WD/WN, vitals as above Neck: trachea midline, no thyromegaly Respiratory: normal respiratory effort, lungs clear to auscultation Cardiovascular: Rate/Rhythm: regular rate Heart Sounds: normal S1, normal S2 and + murmur Extremities: + abnormal capillary refill and no edema Frequent PVCs Gastrointestinal (Abdomen): normal bowel sounds, soft, nontender, no hepatosplenomegaly Musculoskeletal: Extremities: extremities normal to inspection Skin: no rashes, warm and dry Neurologic: Sedated on the ventilator Lymphatic: no cervical lymphadenopathy Results & Data Results & Data Vital Signs (Past 12 Hours) Vital Signs Temp Pulse Pulse Resp BP BP BP 01/08/24 07:25 52 L 18 01/08/24 06:00 37.6 C H 55 L 18 122/66 01/08/24 05:00 37.6 C H 56 L 18 117/67 01/08/24 04:00 01/08/24 04:00 37.4 C 56 L 18 136/72 01/08/24 03:47 55 L 18 01/08/24 03:15 100/67 01/08/24 03:00 37.3 C 61 18 113/60 01/08/24 02:51 37.2 C 63 18 01/08/24 02:00 37.2 C 61 18 102/71 01/08/24 01:45 121/68 01/08/24 01:36 37.1 C 59 L 18 113/66 01/08/24 01:00 37.0 C 61 18 133/73 01/08/24 00:57 37.0 C 63 22 01/08/24 00:48 37.0 C 58 L 22 01/08/24 00:00 36.9 C 57 L 17 120/63 01/08/24 00:00 01/08/24 00:00 01/07/24 23:45 96/64 L 01/07/24 23:45 96/64 L 01/07/24 23:45 36.9 C 65 18 96/64 L 01/07/24 23:30 97/60 L 01/07/24 23:30 97/60 L 01/07/24 23:30 36.9 C 71 18 01/07/24 23:18 36.9 C 74 18 01/07/24 23:15 36.9 C 76 18 99/58 L 01/07/24 23:00 36.9 C 79 18 104/72 01/07/24 22:58 110/67 01/07/24 22:56 79 01/07/24 22:54 36.9 C 75 18 01/07/24 22:51 36.8 C 76 18 01/07/24 22:30 36.7 C 80 18 109/67 01/07/24 22:24 36.6 C 71 18 01/07/24 22:15 36.5 C 72 18 104/64 01/07/24 22:00 36.4 C L 72 34 H 121/67 01/07/24 21:45 01/07/24 21:45 36.4 C L 73 18 123/74 01/07/24 21:40 80 18 01/07/24 21:30 36.2 C L 73 20 115/71 01/07/24 21:24 36.2 C L 70 20 01/07/24 21:20 101/61 01/07/24 21:20 101/61 01/07/24 21:14 99/63 L 01/07/24 21:14 99/63 L 01/07/24 21:12 36.1 C L 79 20 01/07/24 21:10 88/53 L 01/07/24 21:10 88/53 L 01/07/24 21:09 36.1 C L 78 20 01/07/24 21:06 81/50 L 01/07/24 21:06 36.1 C L 77 20 01/07/24 21:03 36.0 C L 77 20 01/07/24 21:00 90/47 L 01/07/24 21:00 90/47 L 01/07/24 20:57 36.0 C L 82 20 01/07/24 20:51 36.0 C L 80 20 01/07/24 20:50 81 20 105/63 01/07/24 20:40 79 20 108/63 01/07/24 20:35 119/65 01/07/24 20:19 83/50 L 01/07/24 20:18 75/46 L 01/07/24 20:18 36.3 C L 78 20 01/07/24 20:17 74/45 L 01/07/24 20:16 85 01/07/24 20:15 75/46 L 01/07/24 20:11 80/52 L 01/07/24 20:09 36.3 C L 87 20 Pulse Ox Pulse Ox O2 Del Method O2 Del Method O2 Flow Rate FiO2 01/08/24 07:25 100 01/08/24 06:00 100 Mechanical Vent 30 01/08/24 05:00 100 Mechanical Vent 30 01/08/24 04:00 30 01/08/24 04:00 100 Mechanical Vent 30 01/08/24 03:47 100 30 01/08/24 03:15 01/08/24 03:00 100 Mechanical Vent 30 01/08/24 02:51 100 01/08/24 02:00 100 Mechanical Vent 30 01/08/24 01:45 01/08/24 01:36 100 01/08/24 01:00 100 Mechanical Vent 30 01/08/24 00:57 100 01/08/24 00:48 100 01/08/24 00:00 100 Mechanical Vent 30 01/08/24 00:00 40 01/08/24 00:00 100 Mechanical Vent 30 01/07/24 23:45 01/07/24 23:45 01/07/24 23:45 100 01/07/24 23:30 01/07/24 23:30 01/07/24 23:30 100 01/07/24 23:18 100 01/07/24 23:15 100 Mechanical Vent 30 01/07/24 23:00 100 Mechanical Vent 30 01/07/24 22:58 01/07/24 22:56 01/07/24 22:54 100 01/07/24 22:51 100 01/07/24 22:30 100 Mechanical Vent 30 01/07/24 22:24 100 01/07/24 22:15 100 Mechanical Vent 30 01/07/24 22:00 100 Mechanical Vent 30 01/07/24 21:45 Mechanical Vent 30 01/07/24 21:45 100 Mechanical Vent 40 01/07/24 21:40 100 40 01/07/24 21:30 100 Mechanical Vent 30 01/07/24 21:24 100 01/07/24 21:20 01/07/24 21:20 01/07/24 21:14 01/07/24 21:14 01/07/24 21:12 99 01/07/24 21:10 01/07/24 21:10 01/07/24 21:09 99 01/07/24 21:06 01/07/24 21:06 99 01/07/24 21:03 99 01/07/24 21:00 01/07/24 21:00 01/07/24 20:57 99 01/07/24 20:51 97 01/07/24 20:50 97 Mechanical Vent 01/07/24 20:40 98 Mechanical Vent 01/07/24 20:35 01/07/24 20:19 01/07/24 20:18 01/07/24 20:18 90 01/07/24 20:17 01/07/24 20:16 01/07/24 20:15 01/07/24 20:11 01/07/24 20:09 97 Critical Care Results & Data Vital Signs (Past 12 Hours) Vital Signs Temp Pulse Pulse Resp BP BP BP 01/08/24 07:25 52 L 18 01/08/24 06:00 37.6 C H 55 L 18 122/66 01/08/24 05:00 37.6 C H 56 L 18 117/67 01/08/24 04:00 01/08/24 04:00 37.4 C 56 L 18 136/72 01/08/24 03:47 55 L 18 01/08/24 03:15 100/67 01/08/24 03:00 37.3 C 61 18 113/60 01/08/24 02:51 37.2 C 63 18 01/08/24 02:00 37.2 C 61 18 102/71 01/08/24 01:45 121/68 01/08/24 01:36 37.1 C 59 L 18 113/66 01/08/24 01:00 37.0 C 61 18 133/73 01/08/24 00:57 37.0 C 63 22 01/08/24 00:48 37.0 C 58 L 22 01/08/24 00:00 36.9 C 57 L 17 120/63 01/08/24 00:00 01/08/24 00:00 01/07/24 23:45 96/64 L 01/07/24 23:45 96/64 L 01/07/24 23:45 36.9 C 65 18 96/64 L 01/07/24 23:30 97/60 L 01/07/24 23:30 97/60 L 01/07/24 23:30 36.9 C 71 18 01/07/24 23:18 36.9 C 74 18 01/07/24 23:15 36.9 C 76 18 99/58 L 01/07/24 23:00 36.9 C 79 18 104/72 01/07/24 22:58 110/67 01/07/24 22:56 79 01/07/24 22:54 36.9 C 75 18 01/07/24 22:51 36.8 C 76 18 01/07/24 22:30 36.7 C 80 18 109/67 01/07/24 22:24 36.6 C 71 18 01/07/24 22:15 36.5 C 72 18 104/64 01/07/24 22:00 36.4 C L 72 34 H 121/67 01/07/24 21:45 01/07/24 21:45 36.4 C L 73 18 123/74 01/07/24 21:40 80 18 01/07/24 21:30 36.2 C L 73 20 115/71 01/07/24 21:24 36.2 C L 70 20 01/07/24 21:20 101/61 01/07/24 21:20 101/61 01/07/24 21:14 99/63 L 01/07/24 21:14 99/63 L 01/07/24 21:12 36.1 C L 79 20 01/07/24 21:10 88/53 L 01/07/24 21:10 88/53 L 01/07/24 21:09 36.1 C L 78 20 01/07/24 21:06 81/50 L 01/07/24 21:06 36.1 C L 77 20 01/07/24 21:03 36.0 C L 77 20 01/07/24 21:00 90/47 L 01/07/24 21:00 90/47 L 01/07/24 20:57 36.0 C L 82 20 01/07/24 20:51 36.0 C L 80 20 01/07/24 20:50 81 20 105/63 01/07/24 20:40 79 20 108/63 01/07/24 20:35 119/65 01/07/24 20:19 83/50 L 01/07/24 20:18 75/46 L 01/07/24 20:18 36.3 C L 78 20 01/07/24 20:17 74/45 L 01/07/24 20:16 85 01/07/24 20:15 75/46 L 01/07/24 20:11 80/52 L 01/07/24 20:09 36.3 C L 87 20 Pulse Ox Pulse Ox O2 Del Method O2 Del Method O2 Flow Rate FiO2 01/08/24 07:25 100 01/08/24 06:00 100 Mechanical Vent 30 01/08/24 05:00 100 Mechanical Vent 30 01/08/24 04:00 30 01/08/24 04:00 100 Mechanical Vent 30 01/08/24 03:47 100 30 01/08/24 03:15 01/08/24 03:00 100 Mechanical Vent 30 01/08/24 02:51 100 01/08/24 02:00 100 Mechanical Vent 30 01/08/24 01:45 01/08/24 01:36 100 01/08/24 01:00 100 Mechanical Vent 30 01/08/24 00:57 100 01/08/24 00:48 100 01/08/24 00:00 100 Mechanical Vent 30 01/08/24 00:00 40 01/08/24 00:00 100 Mechanical Vent 30 01/07/24 23:45 01/07/24 23:45 01/07/24 23:45 100 01/07/24 23:30 01/07/24 23:30 01/07/24 23:30 100 01/07/24 23:18 100 01/07/24 23:15 100 Mechanical Vent 30 01/07/24 23:00 100 Mechanical Vent 30 01/07/24 22:58 01/07/24 22:56 01/07/24 22:54 100 01/07/24 22:51 100 01/07/24 22:30 100 Mechanical Vent 30 01/07/24 22:24 100 01/07/24 22:15 100 Mechanical Vent 30 01/07/24 22:00 100 Mechanical Vent 30 01/07/24 21:45 Mechanical Vent 30 01/07/24 21:45 100 Mechanical Vent 40 01/07/24 21:40 100 40 01/07/24 21:30 100 Mechanical Vent 30 01/07/24 21:24 100 01/07/24 21:20 01/07/24 21:20 01/07/24 21:14 01/07/24 21:14 01/07/24 21:12 99 01/07/24 21:10 01/07/24 21:10 01/07/24 21:09 99 01/07/24 21:06 01/07/24 21:06 99 01/07/24 21:03 99 01/07/24 21:00 01/07/24 21:00 01/07/24 20:57 99 01/07/24 20:51 97 01/07/24 20:50 97 Mechanical Vent 01/07/24 20:40 98 Mechanical Vent 01/07/24 20:35 01/07/24 20:19 01/07/24 20:18 01/07/24 20:18 90 01/07/24 20:17 01/07/24 20:16 01/07/24 20:15 01/07/24 20:11 01/07/24 20:09 97 Lab & Micro Results (Past 24 Hours) RBC 4.72 M/uL (4.70-6.10) 01/08/24 WBC 11.76 K/ul (4.8-10.8) H 01/08/24 Hgb 12.8 g/dl (14.0-18.0) L 01/08/24 Hct 39.3 % (42.0-52.0) L 01/08/24 MCV 83.3 fL (80.0-100.0) 01/08/24 MCH 27.1 pg (25.0-34.0) 01/08/24 MCHC 32.6 g/dL (32.0-36.0) 01/08/24 RDW Standard Deviation 42.6 fL (36.4-46.3) 01/08/24 RDW Coefficient of Variation 13.9 % (11.5-14.5) 01/08/24 Plt Count 202 K/uL (130-400) 01/08/24 MPV 9.5 fL (9.4-12.4) 01/08/24 Neutrophils (%) (Auto) 78.2 % 01/08/24 Lymphocytes (%) (Auto) 13.8 % 01/08/24 Monocytes # (Auto) 0.86 K/uL (0.11-0.59) H 01/08/24 Eosinophils # (Auto) 0.00 K/uL (0.00-0.50) 01/08/24 Immature Granulocyte % (Auto) 0.6 % 01/08/24 Neutrophils # (Auto) 9.20 K/uL (1.40-6.50) H 01/08/24 Lymphocytes # (Auto) 1.62 K/uL (1.20-3.40) 01/08/24 Monocytes # (Auto) 0.86 K/uL (0.11-0.59) H 01/08/24 Eosinophils # (Auto) 0.00 K/uL (0.00-0.50) 01/08/24 Basophils # (Auto) 0.01 K/uL (0.00-0.20) 01/08/24 Immature Granulocyte # (Auto) 0.07 K/uL (0.01-0.20) 4 Na 137 mmol/L (136-145) 01/08/24 K 4.3 mmol/L (3.5-5.1) 01/08/24 Cl 106 mmol/L (98-107) 01/08/24 CO2 24 mmol/L (21-32) 01/08/24 Anion Gap 7 (3-11) 01/08/24 BUN 16 mg/dl (6-23) 01/08/24 Creatinine 0.66 mg/dl (0.6-1.4) 01/08/24 BUN/Creatinine Ratio 24.2 (10-20) H 01/08/24 Glu 138 mg/dl (70-99(Fasting)) H 01/08/24 Ca 8.8 mg/dl (8.6-10.3) 01/08/24 Phosphorus Level 3.8 mg/dl (2.5-4.9) 01/08/24 Total Bilirubin 0.4 mg/dl (0.2-1.0) 01/08/24 Direct Bilirubin 0.0 mg/dl (0-0.2) 01/08/24 AST 32 U/L (13-39) 01/08/24 ALT 38 U/L (7-52) 01/08/24 Alkaline Phosphatase 55 U/L (34-104) 01/08/24 TP 6.5 gm/dl (6.0-8.3) 01/08/24 Albumin 4.1 gm/dl (3.4-5.0) 01/08/24 Globulin 2.4 gm/dl (2.5-4.0) L 01/07/24 Albumin/Globulin Ratio 1.8 (0.9-2) 01/07/24 Mg 2.5 mg/dl (1.7-2.4) H 01/08/24 05:28 Calcium Level 8.8 mg/dl (8.6-10.3) 01/08/24 05:28 Prothromb Time International Ratio 1.0 (0.9-1.1) 01/07/24 18:4 9 Venous Blood pH 7.32 (7.36-7.41) L 01/07/24 18:49 Venous Blood Partial Pressure CO2 48 mmHg (38-50) 01/07/24 18:4 9 Venous Blood Partial Pressure O2 46 mmHg 01/07/24 18:49 Venous Blood HCO3 25 mmol/L 01/07/24 18:49 Venous Blood Base Excess -1.8 mEq/L 01/07/24 18:49 Venous Blood Oxygen Saturation 75.5 % 01/07/24 18:49 Cyril Test NA 01/07/24 23:07 Diagnostic Findings (Past 24 Hours) Chest X-Ray 01/07/24 18:14 Chest radiograph, one view History: Chest pain Comparison: Findings: Single AP view of the chest performed. Mild, streaky bibasilar opacities in the lungs, left greater than right. No visualized pleural effusion. No pneumothorax. The endotracheal tube tip is approximately 5.4 cm above the irena. The NG/OG tube traverses the esophagus and descends into the stomach. The cardiomediastinal silhouette is within normal limits. Normal pulmonary vascularity. No evidence for lymphadenopathy. No visualized bony or soft tissue abnormality. Impression: ET tube as above. Mild streaky bibasilar opacity, representing atelectasis or consolidation. Electronically signed by Margarito Ortega 01-07-2024 8:05 PM Chest CTA 01/07/24 18:28 Exam(s): CTA CHEST IV Amt: 119 ml opti 320 EXAM: CT Angiography Chest With Intravenous Contrast CLINICAL HISTORY: Reason for exam: PE, carrdiac arrest. TECHNIQUE: Axial computed tomographic angiography images of the chest with intravenous contrast. CTDI is 24.7 mGy and DLP is 834.59 mGy-cm. Automated exposure control was utilized for the study. A dose lowering technique was utilized adhering to the principles of ALARA. MIP reconstructed images were created and reviewed. COMPARISON: None FINDINGS: Pulmonary arteries: Unremarkable. No pulmonary embolus identified. Aorta: Atherosclerotic changes in the aorta. No aortic aneurysm. Lungs: Dependent and lower lung atelectasis. Interlobular septal thickening, suggesting fluid overload. Nonspecific nodules bilaterally, measuring up to 7 mm. This could be related to fluid overload/edema versus nonspecific nodules. Follow-up exam could be performed after appropriate treatment or 3 to 6 months if clinically indicated. Pleural space: Unremarkable. No significant effusion. No pneumothorax. Heart: Mild cardiomegaly. Coronary artery. Angiographic calcifications. No significant pericardial effusion. No evidence of RV dysfunction. Mediastinum: Nonspecific shotty mediastinal and hilar lymph nodes. Bones/joints: Degenerative changes of the spine. No acute fracture. No dislocation. Soft tissues: Unremarkable. Lymph nodes: See above. Gallbladder and bile ducts: Cholelithiasis partially seen. Spleen: Small splenule. Tubes, lines and devices: Endotracheal tube terminates in the mid thoracic trachea. Enteric tube courses into the stomach. IMPRESSION: 1. No pulmonary embolus identified. 2. Interlobular septal thickening, suggesting fluid overload. 3. Nonspecific nodules bilaterally, measuring up to 7 mm. This could be related to fluid overload/edema versus nonspecific nodules. Follow-up exam could be performed after appropriate treatment or 3 to 6 months if clinically indicated. 4. Atherosclerotic changes in the aorta. No aortic aneurysm. Electronically signed by: Christine Hunter M.D. 01/07/24 19:[address] 01/07/24 18:28 Exam(s): CT HEAD Without Contrast EXAM: CT Head Without Intravenous Contrast CLINICAL HISTORY: Reason for exam: ams, post rosc. TECHNIQUE: Axial computed tomography images of the head/brain without intravenous contrast. CTDI is 36.31 mGy and DLP is 624.41 mGy-cm. Automated exposure control was utilized for the study. A dose lowering technique was utilized adhering to the principles of ALARA. COMPARISON: None FINDINGS: Brain: No acute infarct or hemorrhage identified. No extra-axial fluid collection. No mass effect or midline shift. Scattered areas of hypoattenuation in the supratentorial white matter likely represent chronic small vessel ischemic changes. Ventricles and sulci: Prominence of the ventricles and sulci is likely secondary to cerebral volume loss. Bones: Normal. No bony lesion or acute fracture. Subcutaneous tissues: Normal. Sinuses: Mild mucosal thickening in the left maxillary sinus and ethmoid air cells. Mastoid air cells: Normal. Orbits: Bilateral lens implants. Other: Atherosclerotic calcifications in the intracranial vasculature. IMPRESSION: 1. No acute intracranial abnormality. Further evaluation could be performed with MRI as clinically indicated. 2. Mild chronic small vessel ischemic changes and cerebral volume loss. Electronically signed by: Christine Hunter M.D. 01/07/24 19:29 PM Abdomen/Pelvis CT 01/07/24 18:49 Exam(s): CT ABDOMEN + PELVIS With Contrast IV Amt: 119 ml opti 320 EXAM: CT Abdomen and Pelvis With Intravenous Contrast CLINICAL HISTORY: Reason for exam: diarrhea, post arrest. TECHNIQUE: Axial computed tomography images of the abdomen and pelvis with intravenous contrast. CTDI is 26.75 mGy and DLP is 1452.22 mGy-cm. Automated exposure control was utilized for the study. A dose lowering technique was utilized adhering to the principles of ALARA. CONTRAST: Patient received 119 ml opti 320 of IV contrast COMPARISON: CT abdomen/pelvis on 12/03/2018 FINDINGS: Lung bases: Please see accompanying CT chest for further details. ABDOMEN: Liver: Unremarkable. No mass. Gallbladder and bile ducts: Cholelithiasis. No ductal dilation. Pancreas: Unremarkable. No mass. No ductal dilation. Spleen: Small splenule. Adrenals: Unremarkable. No mass. Kidneys and ureters: Small hypodensities in the kidneys are too small to definitively characterize. No hydronephrosis or obstructing ureteral stone. Stomach and bowel: Diverticulosis without evidence of diverticulitis. No small bowel obstruction. PELVIS: Appendix: Normal appendix. Bladder: Celeste catheter in an underdistended bladder. Thickened, trabeculated bladder with gas foci in the bladder. This could be secondary to catheterization and underdistention. Please correlate with urinalysis if concerned for cystitis. Reproductive: Unremarkable as visualized. ABDOMEN and PELVIS: Intraperitoneal space: Unremarkable. No free air. No significant fluid collection. Bones/joints: Degenerative changes of the spine. Probable small bone islands in the pelvic bones. No acute fracture. No dislocation. Soft tissues: Small fat-containing umbilical hernia. Vasculature: Atherosclerotic changes of the vasculature. No abdominal aortic aneurysm or dissection. Mild ectasia of the abdominal aorta. Lymph nodes: Unremarkable. No enlarged lymph nodes. Tubes, lines and devices: Enteric tube terminates in the gastric body. IMPRESSION: 1. Celeste catheter in an underdistended bladder. Thickened, trabeculated bladder with gas foci in the bladder. This could be secondary to catheterization and underdistention. Please correlate with urinalysis if concerned for cystitis. 2. Cholelithiasis. Electronically signed by: Christine Hunter M.D. 01/07/24 19:46 PM Chest X-Ray 01/08/24 06:00 EXAM: XR chest 1V portable CLINICAL HISTORY: eval lines/tubes/lung rosenthal tgb/jtf TECHNIQUE: An X-ray image of the chest is obtained in AP projection. COMPARISON: 01/07/2024. FINDINGS: Lines and tubes: ETT was noted with a tip 1.4cm from the irena. NG tube was noted with a tip in the stomach Pulmonary Parenchyma: No evidence of consolidation, collapse, or focal opacities. Bilateral perihilar increased vascular marking. No evidence of pleural effusion or pleural thickening. Heart and Mediastinum: Cardiomegaly is noted. No mediastinal widening or masses. No hilar or mediastinal lymphadenopathy. Bony Thorax: Bony thorax appears intact without fractures or deformities. Soft Tissues: Soft tissues overlying the chest wall are unremarkable. IMPRESSION: 1. ETT was noted with a tip 1.4cm from the irena, other than that no interval changes in comparison with the x-ray on 01/07/2024. 2. Bilateral perihilar increased vascular marking could be due to edema or vascular congestion. 3. Cardiomegaly. Electronically signed by Xavier Rios 01-08-2024 07:23 AM I & O Totals 24 Hours 01/07/24 01/08/24 01/09/24 06:59 06:59 06:59 Intake Total 1957.406 / 2244.734 315.708 / 315.708 Output Total 1550 / 1550 Balance 407.406 / 694.734 315.708 / 315.708 Cumulative 01/07/24 18:09 thru 01/08/24 07:33 Intake Total 2273.114 Output Total 1550 Balance 723.114 RT Ventilator Mngmt (Last Documented) Ventilator Ordered Settings Ventilator Support Mode Assist Control 01/08/24 07:25 Respiratory Rate 18 01/08/24 07:25 Ventilator Tidal Volume 400 01/08/24 07:25 Setting Minute Ventilation 7.2 01/08/24 07:25 Ventilator Positive Pressure 5 01/08/24 07:25 Support Setting Positive End Expiratory 30 01/08/24 07:25 Pressure Fraction of Inspired Oxygen 30 01/08/24 06:00 Ventilator - PT Measurements Respiratory Rate 18 Exhaled Tidal Volume 400 Minute Ventilation 7.2 Peak Inspiratory Airway 15 Pressure Plateau Pressure 12 Respiratory Cycle Inspiratory: 1:3.2 Expiratory Ratio Inspiratory Phase Time 0.80 End-Tidal CO2 32 Static Lung Compliance -22.22 Dynamic Lung Compliance -26.67 Normal Static Lung Compliance 53.00 Patient Measurements Comment titrated to 30% fio2 Coding Level of Care Code 33172 CRITICAL CARE 1ST 30-74M Diagnoses Ventricular fibrillation I49.01 Cardiac arrest I46.9 Respiratory failure J96.90 Aortic valve sclerosis I35.8 Diabetes mellitus, type II E11.9 Dyslipidemia E78.5 HTN (hypertension) I10
[2024-01-08] MEDS: ICU Protocol for HYPERglycemia SCH (08:15)
--- NOTE | 2024-01-08 08:21 | Cardiology Consultation ---
Date of Consultation January 08, 2024 Assessment & Plan (1) Ventricular fibrillation: (2) Cardiac arrest: (3) Aortic valve stenosis determined by imaging: (4) HTN (hypertension): (5) Dyslipidemia: Plan Case has been discussed with Dr. Payton. Further recommendations regarding plan of care as per his assessment. I spent a total of 40 minutes on the date of service in preparation, delivery, documentation of the care provided to the patient excluding any time spent in t he performance of separately billed services. SERGIO Rodríguez [facility] Cardiology [facility] Supervising Physician Co-Signing Physician Notes Attending Staff: Pt seen and evaluated with [facility] staff Concur with observations and plans 83 yo man presenting s/p [place]. Hx of [place] sporting event LOC CPR started EMS - VFIB -Dfib - ROSC Underlying LBBB Intubated Overnight: * No cooling protocol * Heparin Started * Troponin mildly elevated * EKG - sinus + LBBB (old) * On propofol * A-Line * Neosynephrine started for pressor support; weaning * No active signs of infection Patient is arousable and responsive to simple commands Plans: * Wean Neosynephrine * If pressor support needed beyond AM, would consider switching to Levophed * Lactate normalized - Check Lactate this AM * Minimal ventilator settings in AM * Consider Spontaneous Breathing Trial * ECHO - completed - results pending * Patient will need Coronary Angiography + potential TAVR evaluation - this would involve a transfer to [facility] * Continue Heparin * + Bleeding from Celeste Cath - potential trauma * LFTs WNL * Continue Lipitor 40 mg po per day * Start ASA 81 mg po per day * Head CT - negative for CVA/Mass or Bleeding * 62 min spent addressing challenges, educating and advancing daily plan of care Chase Payton History of Present Illness Reason for Consultation: V-Fib arrest Requesting Physician: [facility] Hospitalist Attending Physician: Diallo Hudson MD History of Present Illness HPI: 83 year old male with PMHx significant for Severe , Chronic Left BBB, PVC's, Systolic HF, HTN, DM, Dyslipidemia, Mild Carotid disease, vitamin D, and tobacco use presented to the ER as an active V-fib arrest. Patient reported not feeling well that day complaining of some heart burn in which he took Carly- [place], also endorsed some back pain. He proceeded to go to the hockey game last night with family, and was witnessed to slump over. EMS activated. CPR started and EMS had arrived within 5 minutes. Received 2 rounds of CPR and one defibrillation shock of 200J with return to SR. Patient had agonal respirations and therefore was intubated. Hypotensive and started on pressors. EKG today SB with 1st degree AVB with PVC rate 58bpm QTc 504. Echo Pending Elevated Lactate High sensitivity troponin 77.9/507.9 TSH 8.763. Free T4 normal Allergies Allergy/AdvReac Type Severity Reaction Status Date / Time No Known Allergies Allergy Verified 01/07/24 19:19 Home Medications Medication Instructions Recorded Confirmed Type atorvastatin 40 mg tablet 40 mg PO QAM 12/03/18 01/07/24 History cholecalciferol (vitamin D3) 25 1,000 unit PO QAM 12/03/18 01/07/24 History mcg (1,000 unit) capsule lisinopril 10 0.5 tab PO QAM 12/03/18 01/07/24 History mg-hydrochlorothiazide 12.5 mg tablet empagliflozin 25 mg tablet 25 mg PO QAM 06/29/22 01/07/24 History (Jardiance) ascorbic acid (vitamin C) 125 mg 125 mg PO DAILY 01/07/24 01/07/24 History chewable tablet (Vitamin C) cyanocobalamin (vitamin B-12) 100 100 mcg PO DAILY 01/07/24 01/07/24 History mcg tablet glipizide 5 mg tablet, extended 5 mg PO QAM 01/07/24 01/07/24 History release 24 hr metformin 1,000 mg tablet 1,000 mg PO BID 01/07/24 01/07/24 History Patient History Medical History Aortic valve sclerosis followed with Dr Velasquez Diabetes mellitus, type 2 NIDDM History of anemia r/t GI bleed in 11/2018. EGD and x5 units of blood History of GI bleed (11/2018) Hypertension Hyperlipidemia History of COVID-29 Nov 2021 > not hospitalized Surgical History S/P carpal tunnel release (05/15/23) right History of left cataract extraction History of tooth extraction History of tonsillectomy History of esophagogastroduodenoscopy (EGD) 12/04/2018. propofol no issues. History of colonoscopy 10/2010 colonoscopy: Sigmoid diverticulosis Family History Father Diabetes Bladder cancer Mother Diabetes Other No family history of adverse response to anesthesia Social History Smoking Status: Unknown if ever smoked Tobacco Type: Cigarettes Second Hand Exposure: No; Do You Dip or Chew Tobacco: No; Hx Alcohol Use: No Hx Substance Use: No Preferred Language: Tristanian Communication Ability: Effective Personnel Quality Assurance Auditor Required: No Beliefs That Will Affect Care: None Current Living Situation: Spouse Other Information That Helps Us Care for You: No Feels Safe at Home: Yes Assistive Devices: Hearing Aid - Bilateral Review of Systems Review of Systems: Unobtainable due to endotracheal tube Physical Exam Physical Exam: Sedated but arousable No elevation in JVP S1S2 2/6 Systolic murmur CTA B No C/C/E Bloody urine in Celeste Bag Results & Data Vital Signs (Past 12 Hours) Vital Signs Temp Pulse Pulse Resp BP BP BP 01/08/24 07:25 52 L 18 01/08/24 06:00 37.6 C H 55 L 18 122/66 01/08/24 05:00 37.6 C H 56 L 18 117/67 01/08/24 04:00 01/08/24 04:00 37.4 C 56 L 18 136/72 01/08/24 03:47 55 L 18 01/08/24 03:15 100/67 01/08/24 03:00 37.3 C 61 18 113/60 01/08/24 02:51 37.2 C 63 18 01/08/24 02:00 37.2 C 61 18 102/71 01/08/24 01:45 121/68 01/08/24 01:36 37.1 C 59 L 18 113/66 01/08/24 01:00 37.0 C 61 18 133/73 01/08/24 00:57 37.0 C 63 22 01/08/24 00:48 37.0 C 58 L 22 01/08/24 00:00 36.9 C 57 L 17 120/63 01/08/24 00:00 01/08/24 00:00 01/07/24 23:45 96/64 L 01/07/24 23:45 96/64 L 01/07/24 23:45 36.9 C 65 18 96/64 L 01/07/24 23:30 97/60 L 01/07/24 23:30 97/60 L 01/07/24 23:30 36.9 C 71 18 01/07/24 23:18 36.9 C 74 18 01/07/24 23:15 36.9 C 76 18 99/58 L 01/07/24 23:00 36.9 C 79 18 104/72 01/07/24 22:58 110/67 01/07/24 22:56 79 01/07/24 22:54 36.9 C 75 18 01/07/24 22:51 36.8 C 76 18 01/07/24 22:30 36.7 C 80 18 109/67 01/07/24 22:24 36.6 C 71 18 01/07/24 22:15 36.5 C 72 18 104/64 01/07/24 22:00 36.4 C L 72 34 H 121/67 01/07/24 21:45 01/07/24 21:45 36.4 C L 73 18 123/74 01/07/24 21:40 80 18 01/07/24 21:30 36.2 C L 73 20 115/71 01/07/24 21:24 36.2 C L 70 20 01/07/24 21:20 101/61 01/07/24 21:20 101/61 01/07/24 21:14 99/63 L 01/07/24 21:14 99/63 L 01/07/24 21:12 36.1 C L 79 20 01/07/24 21:10 88/53 L 01/07/24 21:10 88/53 L 01/07/24 21:09 36.1 C L 78 20 01/07/24 21:06 81/50 L 01/07/24 21:06 36.1 C L 77 20 01/07/24 21:03 36.0 C L 77 20 01/07/24 21:00 90/47 L 01/07/24 21:00 90/47 L 01/07/24 20:57 36.0 C L 82 20 01/07/24 20:51 36.0 C L 80 20 01/07/24 20:50 81 20 105/63 01/07/24 20:40 79 20 108/63 01/07/24 20:35 119/65 01/07/24 20:19 83/50 L 01/07/24 20:18 75/46 L 01/07/24 20:18 36.3 C L 78 20 01/07/24 20:17 74/45 L 01/07/24 20:16 85 Pulse Ox Pulse Ox O2 Del Method O2 Del Method O2 Flow Rate FiO2 01/08/24 07:25 100 01/08/24 06:00 100 Mechanical Vent 30 01/08/24 05:00 100 Mechanical Vent 30 01/08/24 04:00 30 01/08/24 04:00 100 Mechanical Vent 30 01/08/24 03:47 100 30 01/08/24 03:15 01/08/24 03:00 100 Mechanical Vent 30 01/08/24 02:51 100 01/08/24 02:00 100 Mechanical Vent 30 01/08/24 01:45 01/08/24 01:36 100 01/08/24 01:00 100 Mechanical Vent 30 01/08/24 00:57 100 01/08/24 00:48 100 01/08/24 00:00 100 Mechanical Vent 30 01/08/24 00:00 40 01/08/24 00:00 100 Mechanical Vent 30 01/07/24 23:45 01/07/24 23:45 01/07/24 23:45 100 01/07/24 23:30 01/07/24 23:30 01/07/24 23:30 100 01/07/24 23:18 100 01/07/24 23:15 100 Mechanical Vent 30 01/07/24 23:00 100 Mechanical Vent 30 01/07/24 22:58 01/07/24 22:56 01/07/24 22:54 100 01/07/24 22:51 100 01/07/24 22:30 100 Mechanical Vent 30 01/07/24 22:24 100 01/07/24 22:15 100 Mechanical Vent 30 01/07/24 22:00 100 Mechanical Vent 30 01/07/24 21:45 Mechanical Vent 30 01/07/24 21:45 100 Mechanical Vent 40 01/07/24 21:40 100 40 01/07/24 21:30 100 Mechanical Vent 30 01/07/24 21:24 100 01/07/24 21:20 01/07/24 21:20 01/07/24 21:14 01/07/24 21:14 01/07/24 21:12 99 01/07/24 21:10 01/07/24 21:10 01/07/24 21:09 99 01/07/24 21:06 01/07/24 21:06 99 01/07/24 21:03 99 01/07/24 21:00 01/07/24 21:00 01/07/24 20:57 99 01/07/24 20:51 97 01/07/24 20:50 97 Mechanical Vent 01/07/24 20:40 98 Mechanical Vent 01/07/24 20:35 01/07/24 20:19 01/07/24 20:18 01/07/24 20:18 90 01/07/24 20:17 01/07/24 20:16 Laboratory Results Cardiac Enzymes 01/07/24 01/07/24 01/08/24 Range/Units 18:23 20:45 05:28 AST 52 H 32 (13-39) U/L Troponin I High Sens 12.6 77.9 H* D 507.9 H* D (0-20) pg/ml B-Natriuretic Peptide 244 H 186 H (0-100) pg/ml Coagulation 01/07/24 01/07/24 01/07/24 Range/Units 18:23 18:49 20:45 PT 10.8 (9.0-12.0) Seconds APTT 24 (21-31) Seconds B-Natriuretic Peptide 244 H 186 H (0-100) pg/ml CBC 01/07/24 01/08/24 Range/Units 18:23 05:28 WBC 8.78 11.76 H (4.8-10.8) K/ul RBC 4.68 L 4.72 (4.70-6.10) M/uL Hgb 12.8 L 12.8 L (14.0-18.0) g/dl Hct 39.9 L 39.3 L (42.0-52.0) % Plt Count 173 202 (130-400) K/uL Neut # (Auto) 4.10 9.20 H (1.40-6.50) K/uL Lymph # (Auto) 3.94 H 1.62 (1.20-3.40) K/uL [place] # (Auto) 0.60 H 0.86 H (0.11-0.59) K/uL Eos # (Auto) 0.05 0.00 (0.00-0.50) K/uL Baso # (Auto) 0.02 0.01 (0.00-0.20) K/uL Comprehensive Metabolic Panel 01/07/24 01/08/24 Range/Units 18:23 05:28 Sodium 140 137 (136-145) mmol/L Potassium 3.6 4.3 (3.5-5.1) mmol/L Chloride 103 106 (98-107) mmol/L Carbon Dioxide 26 24 (21-32) mmol/L BUN 19 16 (6-23) mg/dl Creatinine 0.93 0.66 (0.6-1.4) mg/dl Glucose 199 H 138 H (70-99(Fasting)) mg/dl Calcium 9.1 8.8 (8.6-10.3) mg/dl Direct Bilirubin 0.0 (0-0.2) mg/dl AST 52 H 32 (13-39) U/L ALT 42 38 (7-52) U/L Alkaline Phosphatase 60 55 (34-104) U/L Total Protein 6.8 6.5 (6.0-8.3) gm/dl Albumin 4.4 4.1 (3.4-5.0) gm/dl Intake and Output 01/07/24 01/08/24 01/08/24 22:59 06:59 14:59 Intake Total 1025.626 / 2244.734 931.780 / 2244.734 337.875 / 337.875 Output Total 1550 / 1550 150 / 150 Balance 1025.626 / 694.734 -618.220 / 694.734 187.875 / 187.875 Intake: IV 1025.626 / 2244.734 931.780 / 2244.734 337.875 / 337.875 Heparin Sodium/Dextrose 25,000 184.617 / 184.617 units In 500 ml @ 1,050 UNITS/ HR 21 mls/hr IV .[id number] [facility] Rx #:[id number] Lactated Ringer's 250 ml @ 999 250 / 250 mls/hr IV .Q16M [facility] Rx#: [id number] Magnesium Sulfate / D5w 1 gm In 280 / 280 100 ml @ 50 mls/hr IV Q2H [facility] Rx#:[id number] Phenylephrine/Nss 25 mg In 250 226.605 / 288.525 90.30 / 90.30 ml @ 0.5 MCG/KG/MIN 25.8 mls/hr IV .Q9H42M [facility] Rx#:[id number] Potassium Chloride / Wtr 10 meq 100 / 100 In 100 ml @ 100 mls/hr IV ONE ONE Rx#:[id number] Sodium Chloride 0.9% 500 ml @ 500 / 500 999 mls/hr IV .Q31M [facility] Rx#: [id number] fentaNYL citrate 2,500 mcg In 21.25 / 21.25 250 ml @ 0 MCG/HR IV .Q0M [facility] Rx#:[id number] propofoL 1,000 mg In 100 ml @ 25.626 / 142.509 75.175 / 142.509 41.708 / 41.708 15 MCG/KG/MIN 7.74 mls/hr IV . [id number] [facility] Rx#:[id number] Left Antecubital 500 / 500 Oral 0 / 0 Output: Urine Amount (Catheter) 1550 / 1550 150 / 150 Celeste/Indwelling 1550 / 1550 150 / 150 Other: Other Intake Source NPO # Bowel Movement Diapers 0 Weight 86 kg 86 kg Weight Measurement Method Built in [facility] Built in [facility] Diagnostic Findings Summary of transthoracic echocardiogram performed 11/12/2023 with images reviewed/interpreted independently today at the time of visit. The qualitative LV ejection fraction is 40-44% (mildly reduced). The LV wall thickness is moderately increased (concentric). The septal motion is abnormal consistent with intrventricular conduction delay. The remaining left ventricular wall segments are moderately hypokinetic. The aortic valve is moderately calcified. Moderate to severe aortic valve stenosis. Possible low gradient, low flow severe aortic valve stenosis in setting of reduced LV ejection fraction. Mild mitral regurgitation is present. The aortic root and proximal ascending aorta are mildly enlarged. Compared to study dated September 12, 2022, left ventricular ejection fraction has declined, aortic valve systolic gradient unchanged. A Zio Patch was worn for 7 days in December, with predominant rhythm was sinus rhythm, average rate 77 beats per minute, intermittent conduction abnormality/bundle branch block noted, 13 short runs of supraventricular tachycardia, frequent PVCs, 5.6% PVC burden at that time Medications Administered Current Inpatient Medications Atorvastatin Calcium (Atorvastatin 40 Mg Tab) 40 mg PO QAM ALIX Stop: 02/07/24 08:59 Last Admin: 01/08/24 08:50 Dose: 40 mg Dextrose (Dextrose 50% 50 Ml Syringe) 25 - 50 ml IV UD PRN; Protocol PRN Reason: Hypoglycemia Protocol Stop: 02/06/24 21:42 Fentanyl Citrate (Fentanyl Bolus From Bag) 50 mcg IV Q60M PRN PRN Reason: Pain or Agitation Stop: 01/21/24 22:05 Glucagon (Glucagon For Inj 1 Mg Vial) 1 mg SQ UD PRN; Protocol PRN Reason: Hypoglycemia Protocol Stop: 02/06/24 21:42 Glucose (Glucose 40% Gel 15 Gm Tube) 15 - 30 gm PO UD PRN; Protocol PRN Reason: Hypoglycemia Protocol Stop: 02/06/24 21:42 Glucose (Glucose 10 Tab/Tube) 4 - 8 tab PO UD PRN; Protocol PRN Reason: Hypoglycemia Protocol Stop: 02/06/24 21:42 Propofol (Diprivan) 1,000 mg in 100 mls @ 7.74 mls/hr IV .[id number] ALIX; Protocol Stop: 01/10/24 18:29 Last Admin: 01/08/24 07:00 Dose: 15 mcg/kg/min, 7.7 mls/hr Phenylephrine HCl (Phenylephrine/Nss) 25 mg in 250 mls @ 25.8 mls/hr IV .Q9H42M ALIX; Protocol Stop: 02/06/24 20:19 Last Titration: 01/08/24 07:33 Dose: 0.7 mcg/kg/min, 36.1 mls/hr Heparin Sodium/Dextrose (Heparin Sodium/Dextrose) 25,000 units in 500 mls @ 21 mls/hr IV .[id number] ALIX; Protocol Stop: 02/06/24 21:42 Last Titration: 01/08/24 08:10 Dose: 1,050 units/hr, 21 mls/hr Fentanyl Citrate (Fentanyl Citrate) 2,500 mcg in 250 mls @ 0 mls/hr IV .Q0M [facility]; Protocol Stop: 01/21/24 22:14 Last Titration: 01/08/24 07:00 Dose: 0 mcg/hr, 0 mls/hr Pantoprazole Sodium (Protonix) 40 mg in 10 mls @ 5 mls/min IV BID ALIX Stop: 02/06/24 22:14 Last Admin: 01/08/24 08:51 Dose: 5 mls/min Insulin Aspart (Insulin Aspart Per Unit Charge) 0 units SC Q6 ALIX Stop: 02/06/24 00:00 Last Admin: 01/08/24 08:14 Dose: Not Given Miscellaneous (Carbohydrates For Hypoglycemia ) 15 - 30 gm PO UD PRN PRN Reason: Hypoglycemia Protocol Stop: 02/06/24 21:42 Miscellaneous (Icu Electrolyte Replacement Protocol) 1 each N/A BID@06,18 [facility]; Protocol Stop: 01/15/24 17:59 Propofol (Propofol Bolus From Bag) 20 mg IV Q5M PRN PRN Reason: Sedation Stop: 01/10/24 18:29 Last Admin: 01/07/24 19:53 Dose: 20 mg
[2024-01-08] MEDS: ATORVASTATIN 40 MG TAB PO SCH (08:50)
[2024-01-08] MEDS ORDERED: INFLUENZA VACC TS2024-25(65y+)/PF (IIV3) 0.5mL Syr IM ONE (09:00)
[2024-01-08] MEDS: ACETAMINOPHEN 500 MG TAB PO PRN (09:52)
--- NOTE | 2024-01-08 14:37 | Hospitalist Progress Note ---
Date of Service January 08, 2024 Assessment & Plan (1) Cardiac arrest: Plan: Patient is an 83-year-old male with past medical history significant for dyslipidemia, right thyroid nodule, hypertension, diabetes, severe aortic stenosis, systolic CHF, vitamin D deficiency, history of significant bleeding requiring transfusion of five units of blood in 2019 leading to cessation of daily aspirin therapy, history of tobacco use was brought in because of V-fib cardiac arrest. Currently status post intubation. and family in the room. As per patient was having diarrhea for last 1 week. Today complained of some heartburn and took Carly-Bendena. He also complained of back pain. He walks without support. Probably felt nauseous as per . Went to his hockey game with his grandson. Seemed he was doing okay initially. But then while talking mid sentence slumped over. EMS was called. As per grandson took about 5 minutes for EMS arrival and started CPR. After 2 rounds of CPR, received 200 J shock with cardiac conversion to sinus rhythm. Rhythm during the episode seems to be V-fib. Brought to the ER. In the ER patient was having agonal breathing and unresponsive. S/p intubation and started on propofol drip. Patient became hypotensive and started on pressors. Patient has a history of intraventricular conduction delay but recently found to have left bundle branch block which resulted decrease in the left ventricular function from 50% to 40% as per cardiology notes. Recent echo was done in November 12, 2023. S/p cardiac arrest V-fib arrest H/O aortic stenosis H/O LBBB Received 2 rounds of CPR and 200 J shock. Agonal breathing and unresponsive and was intubated in ED Hypotension requiring pressors --ECHO: Sinus bradycardia with left bundle branch block configuration. Left ventricle is normal in size. Moderate concentric LVH. Septal motion is consistent with conduction abnormality. Severe global hypokinesis of left ventricle. EF 15 to 20%. The aortic valve is severely calcified. Valve leaflet mobility is restricted. Low-flow aortic stenosis suspected of moderate to severe degree. Mild mitral regurgitation. Trace tricuspid regurgitation. --CT head:No acute intracranial abnormality. Further evaluation could be performed with MRI as clinically indicated. Mild chronic small vessel ischemic changes and cerebral volume loss. --Wean off of pressors as able --Continue aspirin, statin Appreciate critical care, cardiology input Will likely need coronary angiography eventually Monitor volume status Vent management as per ICU team Lactic acidosis Likely due to above in setting of chronic metformin use Lactic acid levels improved No clear source of infection Monitor Hematuria Likely due to traumatic catheter Monitor CBC Consider urology evaluation if needed Severe aortic stenosis Echo as above Monitor for volume overload History of GI bleed bleeding requiring 5 units of PRBCs In 2019 leading to cessation of aspirin Currently started on aspirin and low dose IV heparin Monitor CBC Hyperlipidemia On statin DM II Continue insulin while hospitalized Monitor BGs Hypertension Hold lisinopril hydrochlorothiazide Monitor blood pressure DVT Px: IV heparin CODE STATUS Full code Admission and Anticipated Discharge Date Admission Date: January 07, 2024 Subjective Patient is seen and examined at bedside Remains intubated this morning during my encounter No distress on exam Difficult to obtain history but nods no to chest pain, dyspnea Plan to be extubated today Review of Systems Review of Systems: All systems reviewed & are unremarkable except as noted in Subjective Physical Exam Physical Exam: Physical Exam: Vitals signs as noted above General Appearance:Moderately built and nourished, no apparent distress, +Intubated Head: normocephalic, Atraumatic Eyes: normal inspection, EOMI Neck: supple, Trachea midline Respiratory/Chest: Normal breath sounds, CTA, No accessory muscle use Cardiovascular: S1, S2, + murmur Abdomen/GI:Soft, Non tender, Bowel sounds present Extremities/Musculoskeletal:normal inspection, no edema Neurologic/Psych:AAO, grossly no focal neurological deficits Skin: normal color, warm Results & Data Results & Data Vital Signs (Past 12 Hours) Vital Signs Temp Pulse Pulse Resp BP BP Pulse Ox 01/08/24 12:54 78 15 95 01/08/24 12:33 81 17 99 01/08/24 12:30 123/58 L 01/08/24 12:21 79 15 98 01/08/24 12:15 121/63 01/08/24 12:09 73 16 99 01/08/24 12:00 83 17 99 01/08/24 12:00 128/68 01/08/24 12:00 37.3 C 01/08/24 11:54 74 18 100 01/08/24 11:45 136/68 01/08/24 11:45 70 33 H 100 01/08/24 11:30 137/87 01/08/24 11:24 37.7 C H 73 17 98 01/08/24 11:21 37.7 C H 78 15 99 01/08/24 11:15 135/67 01/08/24 11:09 37.8 C H 70 20 97 01/08/24 11:00 36.9 C 01/08/24 10:42 37.9 C H 83 18 98 01/08/24 10:39 77 19 100 01/08/24 10:15 123/72 01/08/24 10:08 72 14 100 01/08/24 10:00 112/65 01/08/24 10:00 38.0 C H 01/08/24 09:57 38.0 C H 64 18 98 01/08/24 09:54 38.0 C H 63 18 98 01/08/24 09:45 119/62 01/08/24 09:45 38.0 C H 60 18 99 01/08/24 09:33 38.0 C H 61 18 98 01/08/24 09:31 112/62 01/08/24 09:16 129/68 01/08/24 09:03 38.0 C H 57 L 18 100 01/08/24 09:00 128/63 01/08/24 09:00 128/63 01/08/24 08:48 38.0 C H 56 L 18 99 01/08/24 08:45 132/66 01/08/24 08:30 128/62 01/08/24 08:21 37.9 C H 55 L 18 100 01/08/24 08:15 37.9 C H 57 L 18 100 01/08/24 08:15 126/77 01/08/24 08:03 37.9 C H 57 L 18 99 01/08/24 08:01 124/68 01/08/24 08:00 01/08/24 08:00 62 01/08/24 08:00 01/08/24 08:00 37.2 C 55 L 20 128/62 100 01/08/24 08:00 01/08/24 07:48 37.8 C H 62 18 100 01/08/24 07:46 84/66 L 01/08/24 07:30 132/75 01/08/24 07:27 37.8 C H 59 L 19 100 01/08/24 07:25 52 L 18 100 01/08/24 07:21 37.8 C H 56 L 18 100 01/08/24 07:18 37.8 C H 55 L 18 100 01/08/24 07:15 125/68 01/08/24 07:15 125/68 01/08/24 07:00 128/84 01/08/24 07:00 37.3 C 01/08/24 06:45 115/70 01/08/24 06:42 37.8 C H 53 L 18 100 01/08/24 06:30 120/66 01/08/24 06:30 37.8 C H 54 L 18 100 01/08/24 06:21 37.8 C H 54 L 18 100 01/08/24 06:15 116/67 01/08/24 06:12 37.7 C H 55 L 18 100 01/08/24 06:00 122/60 01/08/24 06:00 37.6 C H 55 L 18 122/66 100 01/08/24 05:45 120/60 01/08/24 05:42 37.7 C H 59 L 18 100 01/08/24 05:39 37.6 C H 58 L 18 100 01/08/24 05:30 136/77 01/08/24 05:21 37.6 C H 56 L 18 100 01/08/24 05:03 37.6 C H 57 L 18 100 01/08/24 05:00 117/67 01/08/24 05:00 117/67 01/08/24 05:00 37.6 C H 56 L 18 117/67 100 01/08/24 04:57 37.6 C H 56 L 18 100 01/08/24 04:54 37.6 C H 57 L 18 100 01/08/24 04:45 118/63 01/08/24 04:45 37.6 C H 56 L 18 100 01/08/24 04:30 37.5 C 53 L 18 100 01/08/24 04:30 119/66 01/08/24 04:00 01/08/24 04:00 37.4 C 56 L 18 136/72 100 01/08/24 03:47 55 L 18 100 01/08/24 03:15 100/67 01/08/24 03:00 37.3 C 61 18 113/60 100 01/08/24 02:51 37.2 C 63 18 100 O2 Del Method O2 Flow Rate FiO2 01/08/24 12:54 Room Air 01/08/24 12:33 01/08/24 12:30 01/08/24 12:21 01/08/24 12:15 01/08/24 12:09 01/08/24 12:00 Nasal Cannula 2 01/08/24 12:00 01/08/24 12:00 01/08/24 11:54 01/08/24 11:45 01/08/24 11:45 01/08/24 11:30 01/08/24 11:24 01/08/24 11:21 01/08/24 11:15 01/08/24 11:09 01/08/24 11:00 01/08/24 10:42 01/08/24 10:39 01/08/24 10:15 01/08/24 10:08 30 01/08/24 10:00 01/08/24 10:00 01/08/24 09:57 01/08/24 09:54 01/08/24 09:45 01/08/24 09:45 01/08/24 09:33 01/08/24 09:31 01/08/24 09:16 01/08/24 09:03 01/08/24 09:00 01/08/24 09:00 01/08/24 08:48 01/08/24 08:45 01/08/24 08:30 01/08/24 08:21 01/08/24 08:15 01/08/24 08:15 01/08/24 08:03 01/08/24 08:01 01/08/24 08:00 Mechanical Vent 01/08/24 08:00 01/08/24 08:00 Mechanical Vent 01/08/24 08:00 Mechanical Vent 01/08/24 08:00 30 01/08/24 07:48 01/08/24 07:46 01/08/24 07:30 01/08/24 07:27 01/08/24 07:25 01/08/24 07:21 01/08/24 07:18 01/08/24 07:15 01/08/24 07:15 01/08/24 07:00 01/08/24 07:00 01/08/24 06:45 01/08/24 06:42 01/08/24 06:30 01/08/24 06:30 01/08/24 06:21 01/08/24 06:15 01/08/24 06:12 01/08/24 06:00 01/08/24 06:00 Mechanical Vent 01/08/24 05:45 01/08/24 05:42 01/08/24 05:39 01/08/24 05:30 01/08/24 05:21 01/08/24 05:03 01/08/24 05:00 01/08/24 05:00 01/08/24 05:00 Mechanical Vent 01/08/24 04:57 01/08/24 04:54 01/08/24 04:45 01/08/24 04:45 01/08/24 04:30 01/08/24 04:30 01/08/24 04:00 30 01/08/24 04:00 Mechanical Vent 01/08/24 03:47 30 01/08/24 03:15 01/08/24 03:00 Mechanical Vent 01/08/24 02:51
[2024-01-08 15:17] LABS: ANTI-Xa, UFH(UnfractionatedHep 0.34 IU/ml (0.3-0.7)
--- OUTSIDE RECORDS SUMMARY | 2024-01-08 15:58 | External Medical Summary | Summary of Care ---
Author Name Unknown Organization [facility] Address [address] [place] [address] Phone [phone] Care Team Providers Care Revenue Integrity Analyst Name Role Phone Alicja Flores MD Primary Care Provider [phone] Reason for Visit * Reason Comments eRx-Medication Refill Encounter Details Date Type Department Care Team (Late st Contact Info) Description 09/10/2023 Refill [facility] [address] [place] [address] Alicja Flores MD [address] [place] [address] Type 2 diabetes mellitus with hemoglobin A1c goal of less than 8.0% ([facility]) Allergies No known active allergiesdocumented as of this encounter (statuses as of 09/10/2023) Medications Medication Sig Dispensed Refills Start Date End Date Status ONE TOUCH ULTRA BONUS PACK KITIndications:D M type 2, goal A1c below 7 as directed 1 0 03/23/2004 Active LANCETS MISCIndications: DM type 2, goal A1c below 7 once daily 50 11 03/23/2004 Active VITAMIN D 1000 UNIT PO CAPSIndications: Vitamin D deficiency 1 capsule daily 30 Cap 11 09/24/2010 Active CYANOCOBALAMIN (VITAMIN B-12) 100 MCG Tablet Take 1 Tablet by mouth in the morning. Active traMADol HCl 50 MG Oral Tablet (Ultram)Indicati ons:Dental abscess Take 1 Tablet by mouth every 6 hours as needed for Pain, Severe. 15 Tablet 06/15/2022 Active OneTouch Ultra In Vitro Strip (Glucose Blood) use to test blood sugars once daily as directed 100 Strip 3 04/02/2023 Active glipiZIDE ER 5 MG Oral Tablet Extended Release 24 Hour (Glucotrol XL)Indications:T ype 2 diabetes mellitus with hemoglobin A1c goal of less than 8.0% (HCC) TAKE 1 TABLET BY MOUTH EVERY MORNING 90 Tablet 1 05/06/2023 Active Jardiance 25 MG Oral Tablet (Empagliflozin)I ndications:Type 2 diabetes mellitus with hemoglobin A1c goal of less than 8.0% (HCC) TAKE 1 TABLET BY MOUTH ONCE DAILY 90 Tablet 1 05/30/2023 Active Lisinopril-hydro CHLOROthiazide 10-12.5 MG Oral TabletIndication s:HTN, goal below 140/90 TAKE 1/2 TABLET BY MOUTH ONCE DAILY 45 Tablet 08/09/2023 Active Vitamin C 125 MG Oral Tablet Chewable Take by mouth. Active Atorvastatin Calcium 40 MG Oral Tablet (Lipitor)Indicat ions:Dyslipidemi a, goal LDL below 100 Take 1 Tablet by mouth in the morning. 90 Tablet 3 09/04/2023 Active metFORMIN HCl 1000 MG Oral Tablet (Glucophage)Jaylin cations:Type 2 diabetes mellitus with hemoglobin A1c goal of less than 8.0% (HCC) TAKE 1 TABLET BY MOUTH TWICE DAILY 180 Tablet 3 09/10/2023 Active metFORMIN HCl 1000 MG Oral Tablet (Glucophage)Jaylin cations:Type 2 diabetes mellitus with hemoglobin A1c goal of less than 8.0% (HCC) TAKE 1 TABLET BY MOUTH TWICE DAILY 180 Tablet 1 01/24/2023 09/10/2023 Discontinued documented as of this encounter (statuses as of 09/10/2023) Active Problems Problem Noted Date Diagnosed Date Aortic valve stenosis 10/08/2022 Aortic valve sclerosis 04/29/2017 HTN, goal below 140/90 04/18/2015 Overview: Per HTN Protocol #27. Right thyroid nodule 01/29/2011 Vitamin D deficiency 09/24/2010 DYSLIPIDEMIA, GOAL LDL BELOW 100 01/27/2009 Overview: Per Lipid Taxonomy. History of tobacco use 06/15/2008 Overview: cigars E.D. 05/03/2008 documented as of this encounter (statuses as of 09/10/2023) Resolved Problems Problem Noted Date Diagnosed Date Resolved Date Type 2 diabetes mellitus wit h hemoglobin A1c goal of less than 8.0% 01/19/2013 03/04/2023 Overview: ICD-10 update of inactive term HTN, GOAL BELOW 140/80 10/01/201105/18 Overview: Per HTN Protocol #27. HTN, GOAL BELOW 130/80 03/10/200910/03 Overview: Per HTN Taxonomy. Type 2 diabetes mellitus wit h hemoglobin A1c goal of less than 7.0% 12/09/2008 01/19/2013 Overview: Per Diabetes Taxonomy. ICD-10 update of inactive term Acute URI 06/15/2008 09/02/2008 Overview: Modified by Acute Dx Protocol #3. Cough 06/15/2008 10/30/2016 Acute bronchitis, complicated 06/15/2008 11/18/2018 Overview: acute HTN, goal below 140/90 06/15/200803/10 Overview: Per HTN Taxonomy. Other specified prophylactic or treatment measure 03/05/2007 10/30/2016 Benign neoplasm of colon 09/10/2006 Overview: adenomatous and hyperplastic tissue-repeat colonoscopy in 2 years High triglycerides 08/21/2006 7 PURE HYPERCHOLESTEROLEM 07/26/200401/11 Overview: Per Lipid Taxonomy. Type 2 diabetes mellitus wit h hemoglobin A1c goal of less than 7.0% 07/26/2004 12/09/2008 Overview: Per Diabetes Taxonomy. ICD-10 update of inactive term Syncope 05/29/2004 10/30/2016 Open wound of trunk 03/13/2004 10/31/19 17 SCIATICA, RIGHT 06/11/2001 10/30/2016 ELEV BL PRES W-O HYPERTN 06/11/2001 documented as of this encounter (statuses as of 09/10/2023) Immunizations Name Administration Dates Next Due COVID-19 mRNA, LNP-s, No Pre serve, 2-Dose Series (Moderna) 04/11/2020,03/14/2020 COVID-19 mRNA, LNP-s, No Pre serve, 2-Dose Series (Pfizer) 12/15/2020,05/19/2020,04/28/2020 PPD 01/29/2011 Pneumococcal Conjugate Vacc, 13 Valent (Prevnar) 01/13/2015 Pneumococcal Polysaccharide PPV23 (Pneumovax) 12/14/2005 Seasonal Influenza, PF, 6 M & above, IM , (FluLaval or Fluzone) 12/04/2017 Seasonal Influenza, Quadriva lent Hd (Fluzone Hd) 11/12/2022,01/09/2022,01/12/2021 Seasonal Influenza, Quadriva lent, No Preserve, IM 10/30/2016,12/20/2015,11/25/2014 Seasonal Influenza, Split, I IV3, With Preserve, Inj 11/11/2013,01/05/2013,12/12/2011,10/30,11/28/2009,11/22/2008,05/03/2008 ,12/14/2005 Seasonal Influenza, Trivalen t, Adjuvanted, 65+ yrs 11/19/2018 Seasonal Influenza, Trivalen t, High Dose, No Preserve, IM 11/16/2017 TDAP (age 10 and older)(Boostrix) 09/01/2022,01/2013 Varicella Zoster Vaccine (Adult) 09/18/2016 Zoster Vaccine Recombinant (Shingrix) 01/11/2020 ,10/23/2019 documented as of this encounter Social History Tobacco Use Types Packs/Day Years Used Date Smoking Tobacco: Former Pipe Q uit: 07/12/2014 Smokeless Tobacco: Never Comments:smokes cigar occasi onaly Alcohol Use Standard Drinks/Week Comments Yes 0 (1 standard drink = 0.6 oz pur e alcohol) occ beer PHQ-2 Answer Date Recorded PHQ Adult Total Score 0 09/04/2023 Hunger Vital Sign Answer Date Recorded Within the past 12 months, y ou worried that your food would run out before you got the money to buy more. Never true 08/04/19 22 Within the past 12 months, t he food you bought just didn't last and you didn't have money to get more. Never true 08/03/2021 Utilities Answer Date Recorded Do you have trouble paying y our heating, water, or electric bill? (Adult - for ages 18 years and over) Not on file 07/30/2023 Is your family able to pay t he heat, water, or electric bill? (Household - for ages 0-17 years) Not on file 07/30/2023 Does your family have access to good internet? (Household - for ages 0-17 years) Not on file 07/30/2023 Social Connections Answer Date Recorded How often do you feel lonely or isolated from those around you? (Adult - for ages 18 years and over) Not on file 07/30/2023 Sex and Gender Information Value Date Recorded Sex Assigned at Male 11/19/2018 2:42 PM EDT Gender Identity Male 11/19/2018 2:42 PM EDT Sexual Orientation Not on file Job Start Date Occupation Industry Not on file Not on file Not on file documented as of this encounter Miscellaneous Notes * Telephone Encounter - Kiran Roth RPh - 09/10/2023 7:46 PM EDTSigned Prescriptions: Disp Refills metFORMIN HCl 1000 MG Oral Tablet (Glucoph*180 Ta*3 Sig: TAKE 1 TABLET BY MOUTH TWICE DAILYAuthorizing Provider: ALICJA FLORES User: KIRAN ROTH--- documented in this encounter Plan of Treatment Upcoming Encounters Date Type Department Care Team (Late st Contact Info) Description 11/12/2023 7:15 AM EDT Cardiac Studies Cardiac Studies, [address] [place] [address] 03/06/2024 9:40 AM EST Office Visit [facility] [address] [place] [address] Alicja Flores [facility] [address] [facility] [id number] Health Maintenance Due Date Last Done Comments COVID-19 Vaccine ( season) 2022 12/15/2020, 05/19/2020, 04/28/2020, Additional history exists Influenza Vaccine (FLU shot) (#1) 2023 11/12/2022, 10/31/2022, 01/09/2022, Additional history exists Depression Screening 09/03/2024 09/04/2023 B-12 09/04/2024 09/05/2023, 07/13, 09/14/2021, Additional history exists GFR 09/04/2024 09/05/2023, 07/13, 09/14/2021, Additional history exists Albumin/Creatinine Ratio 09/04/2026 024, 08/06/2022, 09/14/2021, Additional history exists DTaP,Tdap,and Td Vaccines (4 - Td or Tdap) 09/01/2032 09/01/2022, 09/22/2012, 05/12/2004 Pneumococcal Vaccine: 65+ Years Completed 01/13/2015, 12/14/2005 Zoster Vaccines Completed 01/11/2020, 10/12, 09/18/2016 Diabetic Eye Exam Discontinued 06/28/2022, , 08/21/2014, Additional history exists Diabetic Foot Exam Discontinued 09/01/2022, 1 2020, 10/21/2019, Additional history exists HPV (Gardasil) Vaccine Aged Out No lo nger eligible based on patient's age to complete this topic Hepatitis B Vaccine Aged Out No longe r eligible based on patient's age to complete this topic MENINGOCOCCAL (MENACTRA/MENVEO) Aged Out No longer eligible based on patient's age to complete this topic documented as of this encounter Medical Devices Not on filedocumented as of this encounter Visit Diagnoses Diagnosis Type 2 diabetes mellitus with hemoglobin A1c goal of less than 8.0% (HCC) documented in this encounter Care Teams Revenue Integrity Analyst Relationship Specialty Start Date End Date Alicja Flores MD [address] [place] [address] PCP - General 06/09/1998 documented as of this encounter
--- OUTSIDE RECORDS SUMMARY | 2024-01-08 15:58 | External Medical Summary ---
Author Name Unknown Address Unknown Organization K01:[facility] [place] [address] [place] [address] Laboratory Report Ordering Provider Test Date Status JOVANNAKRISHNA 09/05/2023 08:01:15 Final Observation Date Value Abnormality Reference (Units ) Status SYNC LEUKOCYTES IN BLOOD BY AUTOMATED COUNT 09/05/2023 08:01:15 5.60 4.00-10.80 (K/uL) Final Segs 09/05/2023 08:01:15 61.7 40.0-75.0 (%) Final Lymphs % 09/05/2023 08:01:15 26.8 18.0-42.0 (%) Final Monos 09/05/2023 08:01:15 9.8 1.0-11.0 (%) Final Eosinophils 09/05/2023 08:01:15 1.1 0.0-6.0 (%) Final Basos 09/05/2023 08:01:15 0.2 0.0-2.0 (%) Final Immature Granulocyte, Percent 09/05/2023 08:01:15 0.4 0.0-2.0 (%) Final Absolute Segs 09/05/2023 08:01:15 3.46 1.80-7.70 (K/uL) Final Lymphs, absolute 09/05/2023 08:01:15 1.50 1.00-4.80 (K/ul) Final Monos, Abs 09/05/2023 08:01:15 0.55 0.00-1.10 (K/uL) Final Eos, Abs 09/05/2023 08:01:15 0.06 0.00-0.70 (K/uL) Final Basos, Abs 09/05/2023 08:01:15 0.01 0.00-0.20 (K/uL) Final Immature Granulocytes, Number 09/05/2023 08:01:15 0.02 0.00-0.20 (K/uL) Final Performing Location [facility] - [address] [facility] [address]
--- OUTSIDE RECORDS SUMMARY | 2024-01-08 15:58 | External Medical Summary | Summary of Care ---
Author Name Unknown Organization [facility] Address [address] [place] [address] Phone [phone] Care Team Providers Care Program Engineer Name Role Phone Elvis Flores MD Primary Care Provider [phone] Reason for Visit * Reason Onset Date Comments Appointment 12/20/2023 Encounter Details Date Type Department Care Team (Late st Contact Info) Description 12/20/2023 Telephone Cardiology, [facility] [address] [facility] [place] [address] Sonido Velasquez, [address] [facility] [place] [address] Appointment Allergies No known active allergiesdocumented as of this encounter (statuses as of 12/24/2023) Medications ONE TOUCH ULTRA BONUS PACK KITIndications: DM type 2, goal A1c below 7 as directed 1 0 5 Active LANCETS MISCIndications :DM type 2, goal A1c below 7 once daily 50 11 5 Active VITAMIN D 1000 UNIT PO CAPSIndications :Vitamin D deficiency 1 capsule daily 30 Cap 11 1 Active CYANOCOBALAMIN (VITAMIN B-12) 100 MCG Tablet Take 1 Tablet by mouth in the morning. Active traMADol HCl 50 MG Oral Tablet (Ultram)Indicat ions:Dental abscess Take 1 Tablet by mouth every 6 hours as needed for Pain, Severe. 15 Tablet 3 Active Additional Information Patient not taking.Reported on 12/20/2023 OneTouch Ultra In Vitro Strip (Glucose Blood) use to test blood sugars once daily as directed 100 Strip 3 4 Active Lisinopril-hydr oCHLOROthiazide 10-12.5 MG Oral TabletIndicatio ns:HTN, goal below 140/90 TAKE 1/2 TABLET BY MOUTH ONCE DAILY 45 Tablet 4 Active Vitamin C 125 MG Oral Tablet Chewable Take by mouth. Activ e Atorvastatin Calcium 40 MG Oral Tablet (Lipitor)Indica tions:Dyslipide jerri, goal LDL below 100 Take 1 Tablet by mouth in the morning. 90 Tablet 3 4 Active metFORMIN HCl 1000 MG Oral Tablet (Glucophage)Ind ications:Type 2 diabetes mellitus with hemoglobin A1c goal of less than 8.0% (HCC) TAKE 1 TABLET BY MOUTH TWICE DAILY 180 Tablet 3 4 Active glipiZIDE ER 5 MG Oral Tablet Extended Release 24 Hour (Glucotrol XL)Indications: Type 2 diabetes mellitus with hemoglobin A1c goal of less than 8.0% (HCC) TAKE 1 TABLET BY MOUTH EVERY MORNING 90 Tablet 3 4 Active Jardiance 25 MG Oral Tablet (Empagliflozin) Indications:Typ e 2 diabetes mellitus with hemoglobin A1c goal of less than 8.0% (HCC) TAKE 1 TABLET BY MOUTH ONCE DAILY 90 Tablet 1 4 Active documented as of this encounter (statuses as of 12/24/2023) Active Problems Problem Noted Date Diagnosed Date Aortic valve stenosis 10/08/2022 Aortic valve sclerosis 04/29/2017 HTN, goal below 140/90 04/18/2015 Overview: Per HTN Protocol #27. Right thyroid nodule 01/29/2011 Vitamin D deficiency 09/24/2010 DYSLIPIDEMIA, GOAL LDL BELOW 100 01/27/2009 Overview (01/27/2009): Per Lipid Taxonomy. History of tobacco use 06/15/2008 Overview (11/19/2018): cigars E.D. 05/03/2008 documented as of this encounter (statuses as of 12/24/2023) Resolved Problems Problem Noted Date Diagnosed Date Resolved Date Type 2 diabetes mellitus wit h hemoglobin A1c goal of less than 8.0% 01/19/2013 03/04/2023 Overview (06/09/2015): ICD-10 update of inactive term HTN, GOAL BELOW 140/80 10/01/201105/18 Overview: Per HTN Protocol #27. HTN, GOAL BELOW 130/80 03/10/200910/03 Overview (03/10/2009): Per HTN Taxonomy. Type 2 diabetes mellitus wit h hemoglobin A1c goal of less than 7.0% 12/09/2008 01/19/2013 Overview (06/07/2015): Per Diabetes Taxonomy. ICD-10 update of inactive term Acute URI 06/15/2008 09/02/2008 Overview (09/02/2008): Modified by Acute Dx Protocol #3. Cough 06/15/2008 10/30/2016 Acute bronchitis, complicated 06/15/2008 11/18/2018 Overview (11/18/2018): acute HTN, goal below 140/90 06/15/200803/10 Overview (03/10/2009): Per HTN Taxonomy. Other specified prophylactic or treatment measure 03/05/2007 10/30/2016 Benign neoplasm of colon 09/10/2006 Overview (09/14/2006): adenomatous and hyperplastic tissue-repeat colonoscopy in 2 years High triglycerides 08/21/2006 7 PURE HYPERCHOLESTEROLEM 07/26/200401/11 Overview (01/27/2009): Per Lipid Taxonomy. Type 2 diabetes mellitus wit h hemoglobin A1c goal of less than 7.0% 07/26/2004 12/09/2008 Overview (06/07/2015): Per Diabetes Taxonomy. ICD-10 update of inactive term Syncope 05/29/2004 10/30/2016 Open wound of trunk 03/13/2004 10/31/19 17 SCIATICA, RIGHT 06/11/2001 10/30/2016 ELEV BL PRES W-O HYPERTN 06/11/2001 documented as of this encounter (statuses as of 12/24/2023) Immunizations Name Administration Dates Next Due COVID-19 mRNA, LNP-s, No Pre serve, 2-Dose Series (Moderna) 04/11/2020,03/14/2020 COVID-19 mRNA, LNP-s, No Pre serve, 2-Dose Series (Pfizer) 12/15/2020,05/19/2020,04/28/2020 DT - Diptheria/Tetanus (PEDS) 05/12/2004 PPD 01/29/2011 Pneumococcal Conjugate Vacc, 13 Valent (Prevnar) 01/13/2015 Pneumococcal Polysaccharide PPV23 (Pneumovax) 12/14/2005 Seasonal Influenza Vac., MDV , IM, 0.5 mL (Fluzone) 11/11/2013,01/05/2013,12/12/2011,10/30,11/28/2009,11/22/2008,05/03/2008 ,12/14/2005 Seasonal Influenza Virus Vac cine, Unspecified Formulation 12/16/2004,12/03/1997 Seasonal Influenza, High Dos e, Trivalent, PF, IM (Fluzone HD) 12/20/2023,11/16/2017 Seasonal Influenza, PF, 6 M & above, IM , (FluLaval or Fluzone) 12/04/2017 Seasonal Influenza, Quadriva lent Hd (Fluzone Hd) 11/12/2022,01/09/2022,01/12/2021 Seasonal Influenza, Quadriva lent, No Preserve, IM 10/30/2016,12/20/2015,11/25/2014 Seasonal Influenza, Trivalen t, Adjuvanted, 65+ YRS, PF, (Fluad) 11/19/2018 TDAP (age 10 and older)(Boostrix) 09/01/2022,01/2013 Varicella [...] money to buy more. 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 CT CARDIAC CALCIUM SCORE ONLY - RAD [[id number]] (Order [id number]) documented in this encounter Plan of Treatment Upcoming Encounters Date Type Department Care Team (Late st Contact Info) Description 03/06/2024 9:40 AM EST Office Visit [facility], [facility] [address] [place] [address] Elvis Flores MD [address] [facility] [place] [phone] 11/11/2024 9:30 AM EDT Cardiac Studies Cardiac Studies, [facility] [address] [facility] [place] [address] Health Maintenance Due Date Last Done Comments Adult Wellness Visit 08/03/2022 08/03/2021 COVID-19 Vaccine ( season) 2023 12/15/2020, 05/19/2020, 04/28/2020, Additional history exists Depression Screening 09/03/2024 09/04/2023 B-12 09/04/2024 09/05/2023, 07/13, 09/14/2021, Additional history exists GFR 09/04/2024 09/05/2023, 07/13, 09/14/2021, Additional history exists Albumin/Creatinine Ratio 09/04/2026 024, 08/06/2022, 09/14/2021, Additional history exists DTap/Tdap Vaccines (4 - Td or Tdap) 09/01/2032 09/01/2022, 09/22/2012, 05/12/2004 Pneumococcal Vaccine: 65+ Years Completed 01/13/2015, 12/14/2005 Zoster Vaccines Completed 01/11/2020, 10/12, 09/18/2016 Diabetic Eye Exam Discontinued 06/28/2022, , 08/21/2014, Additional history exists Diabetic Foot Exam Discontinued 09/01/2022, 1 2020, 10/21/2019, Additional history exists Influenza Vaccine (FLU shot) Completed 12/20/2023, 11/12/2022, 10/31/2022, Additional history exists HPV (Gardasil) Vaccine Aged [...] Not on filedocumented as of this encounter Care Teams Program Engineer Relationship Specialty Start Date End Date Elvis Flores MD [address] [place] [address] PCP - General 06/09/1998 documented as of this encounter
--- OUTSIDE RECORDS SUMMARY | 2024-01-08 15:58 | External Medical Summary | Summary of Care ---
Author Name Unknown Organization [facility] Address [address] [place] [address] Phone [phone] Care Team Providers Care Unit Educator Name Role Phone Elvis Flores MD Primary Care Provider [phone] Reason for Referral * Precert (Diagnostic Medical) (Within 10 days (routine)) - Authorized Specialty Diagnoses / Procedures Referred By Contac t Referred To Contact Cardiac Studies Diagnoses Aortic valve stenosis Procedures ECHO, COMPLETE (2D), TRANS-THORACIC Sonido Velasquez DO [address] [place] [place] [address] Phone: tel: fax: Referral ID Status Reason Start Date Expiration Date V isits Requested Visits Authorized [id number] Authorized Precert 11/11/2024 999 999 * Precert (Within 10 days (routine)) - Authorized Specialty Diagnoses / Procedures Referred By Contac t Referred To Contact Radiology Diagnoses Aortic valve stenosis Procedures CT CARDIAC CALCIUM SCORE ONLY - RAD Sonido Velasquez DO [address] [place] [address] Phone: tel: fax: Referral ID Status Reason Start Date Expiration Date V isits Requested Visits Authorized [id number] Authorized Precert 12/21/2023 999 999 Reason for Visit * Reason Onset Date Comments Follow Up Medication Administration 12/20/2023 Flu an d/or Pneumo Inj Encounter Details Date Type Department Care Team (Late st Contact Info) Description 12/20/2023 9:00 AM EST Office Visit Cardiology, [facility] [address] [place] [address] Sonido Velasquez, [address] [place] [address] Nonrheumatic aortic valve stenosis*; LBBB (left bundle branch block); HTN, goal below 140/90; PVC (premature ventricular contraction); DYSLIPIDEMIA, GOAL LDL BELOW 100; Need for prophylactic vaccination and inoculation against influenza Allergies No known active allergiesdocumented as of this encounter (statuses as of 12/20/2023) Medications ONE TOUCH ULTRA BONUS PACK KITIndications: [...] as of this encounter (statuses as of 12/20/2023) Active Problems Problem Noted Date Diagnosed Date Aortic valve stenosis 10/08/2022 Aortic valve sclerosis 04/29/2017 HTN, goal below 140/90 04/18/2015 Overview: Per HTN Protocol #27. Right thyroid nodule 01/29/2011 Vitamin D deficiency 09/24/2010 DYSLIPIDEMIA, GOAL LDL BELOW 100 01/27/2009 Overview (01/27/2009): Per Lipid Taxonomy. History of tobacco use 06/15/2008 Overview (11/19/2018): cigars E.D. 05/03/2008 documented as of this encounter (statuses as of 12/20/2023) Resolved Problems Problem Noted Date Diagnosed Date [...] as of this encounter (statuses as of 12/20/2023) Immunizations Name Administration Dates Next Due COVID-19 mRNA, LNP-s, No Pre serve, 2-Dose Series (Moderna) 04/11/2020,03/14/2020 COVID-19 mRNA, LNP-s, No Pre serve, 2-Dose Series (Pfizer) 12/15/2020,05/19/2020,04/28/2020 PPD 01/29/2011 Pneumococcal Conjugate Vacc, 13 Valent (Prevnar) 01/13/2015 Pneumococcal Polysaccharide PPV23 (Pneumovax) 12/14/2005 Seasonal Influenza Vac., MDV , IM, 0.5 mL (Fluzone) 11/11/2013,01/05/2013,12/12/2011,10/30,11/28/2009,11/22/2008,05/03/2008 ,12/14/2005 Seasonal Influenza, High Dos e, Trivalent, PF, [...] on file documented as of this encounter Last Filed Vital Signs Vital Sign Reading Time Taken Comments Blood Pressure 142/82 12/20/2023 9:06 AM EST Pulse 70 12/20/2023 9:06 AM EST Temperature - - Respiratory Rate - - Oxygen Saturation 96% 12/20/2023 9:06 AM EST Inhaled Oxygen Concentration - - Weight 86.2 kg (190 lb) 12/20/2023 9:06 AM EST Height - - Body Mass Index 27.07 09/04/2023 9:28 AM EDT documented in this encounter Progress Notes * Sonido Velasquez, - 12/20/2023 9:31 AM EST 12/20/2023 Cardiology Follow Up SUBJECTIVE: History of Present Illness Russ Love, an 83-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 At that time, a resting echocardiogram was performed, revealing abnormal septal motion consistent with an intraventricular conduction delay, a low normal LVEF in the range of 50% to 54%, and moderate aortic stenosis. The patient underwent carpal tunnel surgery on both hands a few months ago, which was successful. 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 He denies any chest discomfort, shortness of breath, lightheadedness, dizziness, or changes in activity tolerance. The patient remains active, engaging in yard work, and has no issues with physical exertion. In 2018, the patient experienced a significant bleeding event, requiring a transfusion of five units of blood. This was due to blood in the stool, leading to a cessation of daily aspirin therapy. Thepatient also has a history of high blood pressure, managed with Lisinopril and Hydrochlorothiazide,and diabetes. The patient's most recent cholesterol panel in August 2023 showed a total cholesterol of 100 and an LDL of 54, managed with Atorvastatin 40mg daily. The patient also has a history of premature ventricular contractions, which are being monitored but not actively treated. The patient's most recent echocardiogram showed a progression in the intraventricular conduction delay, now presenting as a left bundle branch block. This has resulted in a decrease in the LVEF from 50% to 40%. The patient's aortic valve is calcified, with a medium degree of stenosis. Despite these findings, the patient reports no symptoms of lightheadedness, dizziness, chest pains, or passing out. Extensive ROS: All systems reviewed & are unremarkable except as noted in HPI & below Cardiovascular (chest pain/palpitations/fluttering/diaphoresis/dyspnea on exertion/paroxysmally nocturnal dyspnea):Negative Review of patient's allergies indicates: No Known Allergies Current Outpatient Medications Medication Sig Dispense Refill ONE TOUCH ULTRA BONUS PACK KIT as directed 1 0 LANCETS MISC once daily 50 11 VITAMIN D 1000 UNIT PO CAPS 1 capsule daily 30 Cap 11 CYANOCOBALAMIN (VITAMIN B-12) 100 MCG Tablet Take 1 Tablet by mouth in the morning. OneTouch Ultra In Vitro Strip (Glucose Blood) use to test blood sugars once daily as directed 100 Strip 3 Lisinopril-hydroCHLOROthiazide 10-12.5 MG Oral Tablet TAKE 1/2 TABLET BY MOUTH ONCE DAILY 45 Tablet0 Vitamin C 125 MG Oral Tablet Chewable Take by mouth. Atorvastatin Calcium 40 MG Oral Tablet (Lipitor) Take 1 Tablet by mouth in the morning. 90 Tablet 3 metFORMIN HCl 1000 MG Oral Tablet (Glucophage) TAKE 1 TABLET BY MOUTH TWICE DAILY 180 Tablet 3 glipiZIDE ER 5 MG Oral Tablet Extended Release 24 Hour (Glucotrol XL) TAKE 1 TABLET BY MOUTH EVERY MORNING 90 Tablet 3 Jardiance 25 MG Oral Tablet (Empagliflozin) TAKE 1 TABLET BY MOUTH ONCE DAILY 90 Tablet 1 traMADol HCl 50 MG Oral Tablet (Ultram) Take 1 Tablet by mouth every 6 hours as needed for Pain, Severe. (Patient not taking: Reported on 12/20/2023) 15 Tablet 0 No current facility-administered medications for this visit. OBJECTIVE/PHYSICAL EXAMINATION: BP 142/82 | Pulse 70 | Wt 86.2 kg (190 lb) | SpO2 96% | BMI 27.07 kg/m | BSA 2.07 m General: no acute distress and stated age, healthy in appearance Eyes: conjunctiva are pink and non-injected, sclera clear Neck: normal jugular venous pulse, no hepatojugular reflux Chest: normal shape and normal respiratory effort Lungs: clear to auscultation , no rales rhonchi or wheezing Cardiac Exam: - 2-3/6 SM at RSB and rediating to the neck bilaterally Abdomen: abdomen soft, non-tender, no abnormal masses and no hepatosplenomegaly Musculoskeletal: no gait disturbance, no weakness Extremities: no edema and no cyanosis Neuro: grossly normal exam, normal gait Psych: appropriate affect and insight. Data: Results LABS Lipid panel: Total cholesterol 100 mg/dL, LDL 54 mg/dL (08/2023) RADIOLOGY Carotid duplex: Less than 50% stenosis in right and left carotid arteries (12/2022) EKG performed today 12/20/2023 and interpreted independently: Sinus rhythm at 67 beats per minute with first-degree AV block, left bundle branch block, QRS duration 174 milliseconds, 1 noted premature ventricular contraction. -compared to the previous tracing performed a year ago on 12/18/2022 the left bundle branch block has replaced the previous finding of a nonspecific IVCD, with QRS duration 130 milliseconds at that time. PVC also noted on the previous tracing. Summary of transthoracic echocardiogram performed 11/12/2023 with images reviewed/interpreted independently today at the time of visit. The qualitative LV ejection fraction is 40-44% (mildly reduced). The LV wall thickness is moderately increased (concentric). The septal motion is abnormal consistent with intrventricular conduction delay. The remaining left ventricular wall segments are moderately hypokinetic. The aortic valve is moderately calcified. Moderate to severe aortic valve stenosis. Possible low gradient, low flow severe aortic valve stenosis in setting of reduced LV ejection fraction. Mild mitral regurgitation is present. The aortic root and proximal ascending aorta are mildly enlarged. Compared to study dated September 12, 2022, left ventricular ejection fraction has declined, aortic valve systolic gradient unchanged. A Zio Patch was worn for 7 days in December, with predominant rhythm was sinus rhythm, averagerate 77 beats per minute, intermittent conduction abnormality/bundle branch block noted, 13 short runs of supraventricular tachycardia, frequent PVCs, 5.6% PVC burden at that time Assessment & Plan Aortic Valve Stenosis Moderate aortic stenosis with calcification noted on echocardiogram. Doppler is consistent with moderate and velocities are unchanged compared to December,. Asymptomatic with no chest discomfort, shortness of breath, lightheadedness, or dizziness. LVEF decreased from 50-54% to 40-44% over the past year. Discussed potential underestimation of stenosis severity. 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 - Order heart valve CT calcium score - Schedule echocardiogram in one year or sooner if symptoms develop Left Bundle Branch Block Progression of intraventricular conduction delay to left bundle branch block. Mild decrease in pumpfunction. No current symptoms of lightheadedness, dizziness, chest pain, or syncope. Discussed potential need for a sophisticated pacemaker if symptoms develop. - Monitor for symptoms - Repeat EKG in one year Premature Ventricular Contractions Premature ventricular contractions noted on EKG and heart monitor. No new symptoms reported. Hypertension Well-controlled on lisinopril and hydrochlorothiazide. Blood pressure within normal range. - Continue lisinopril and hydrochlorothiazide Mild carotid disease -Not on ASA due to past GI bleed in 2019 requiring transfusion of 5 units pRBCs Continue BP management, and atorvastatin Hyperlipidemia Cholesterol levels well-controlled on atorvastatin. Total cholesterol 100 mg/dL, LDL 54 mg/dL. - Continue atorvastatin 40 mg daily General Health Maintenance Received flu shot today. - Ensure routine vaccinations and screenings are up to date Follow-up - Schedule heart valve calcium score within a week to a month - Schedule follow-up appointment in one year with echocardiogram to be done in advance. --pt seen in longitudinal follow up of the above complex cardiac issues with assessment and plan asnoted. Follow up : Follow Up: Return in about 1 year (around 12/19/2024) for Clinic Visit. | For: Clinic Visit | Check-out note: Follow up in 1 year with echo at [facility] in advance of visit. VISIT SUMMARY: Today, we reviewed your current health status and discussed several important aspects of your care.Your heart condition, including aortic valve stenosis and left bundle branch block, was a primary focus. We also reviewed your blood pressure, cholesterol levels, and diabetes management. Additionally, you received a flu shot to keep your vaccinations up to date. YOUR PLAN: -AORTIC VALVE STENOSIS: Aortic valve stenosis is a condition where the valve between the heart and the aorta becomes narrowed, which can affect blood flow. Your echocardiogram showed moderate stenosis with some calcification, and your heart's pumping ability has slightly decreased. We will monitor your condition and if you develop symptoms, we may consider further tests or treatments like heart catheterization or valve replacement. We will order a heart valve calcium score and schedule another echocardiogram in a year, or sooner if you have symptoms. -LEFT BUNDLE BRANCH BLOCK: Left bundle branch block is a condition where there's a delay or blockage along the pathway that electrical impulses travel to make your heart beat. This has caused a mild decrease in your heart's pumping function. Currently, you have no symptoms, but we will monitor for any changes and repeat an EKG in a year. -PREMATURE VENTRICULAR CONTRACTIONS: Premature ventricular contractions are extra heartbeats that begin in one of the heart's lower chambers. These are being monitored and you have not reported any new symptoms. -HYPERTENSION: Hypertension, or high blood pressure, is well-controlled with your current medications, lisinopril and hydrochlorothiazide. Continue taking these medications as prescribed. -HYPERLIPIDEMIA: Hyperlipidemia is having high levels of fats (lipids) in your blood, which is well-controlled with atorvastatin. Your recent cholesterol levels are excellent. Continue taking atorvastatin 40 mg daily. -DIABETES MELLITUS: Diabetes mellitus is a condition that affects how your body processes blood sugar. Your diabetes is being managed with medication, and there are no new issues to address at this time. Continue with your current management plan. -GENERAL HEALTH MAINTENANCE: You received a flu shot today. Please ensure that all your routine vaccinations and screenings are up to date. INSTRUCTIONS: Please schedule a heart valve calcium score within the next week to a month. We will also need to schedule a follow-up appointment in one year, with an echocardiogram to be done before that visit. Sonido Velasquez DO Cardiology, [address] [address] Text in this note was generated using an [employer] service. I discussed the use of a device to record and summarize our discussion today. All persons present during the encounter consented to its use. * Mary Sun CMA - 12/20/2023 9:05 AM EST PRE - ADMINISTRATION DOCUMENTATION Are you experiencing any cold symptoms or fever? No Have you had Guillain-Iselin Syndrome (an illness that causes paralysis) within the last 6 weeks? No Have you had the flu shot in the past? YES Have you ever had a reaction to the flu shot? No Mary Sun CMA, 12/20/2023 9:05 AM Immunization Administration Documentation Time Out Procedure Performed: Yes Patient Identified (Ask Name/Date of ): Yes Does the patient have a fever greater than 101 degrees today? No Patient allergic to latex? No VFC Stock: No Immunization(s) verified: Yes, Immunization Name: Flu, VIS Sheet(s) given: Yes Verified Side and Site: Yes Verified Shot(s) with Parent(s)/Patient: Yes documented in this encounter Nursing Notes * Mary Sun CMA - 12/20/2023 9:04 AM EST Examination Room: 10 Name: Russ Loev Date of : (1940) Reason for Visit: 1 year Interim Hospitalization(s): none Problems/Concerns: denied Chest Pain/SOB: denied [facility] is a way you can talk to your provider online through e-mail. Would you like to sign up? I can activate it for you? DECLINES Patient was instructed to not get up on the exam table until directed and assisted by their provider; patient is to remain seated in the chair/ wheelchair/ exam table for fall prevention and safety reasons. Patient is aware to have assistance to step down off exam table with personnel. Patient voiced full comprehension of instructions. documented in this encounter Plan of Treatment Upcoming Encounters Date Type Department Care Team (Late st Contact Info) Description 03/06/2024 9:40 AM EST [facility] [address] [facility] [place] [id number] Elvis Flores MD [address] [facility] [place] [address] 11/11/2024 9:30 AM EDT Cardiac Studies Cardiac Studies, [facility] [address] [place] [address] Scheduled Orders Name Type Priority Associated Diagnoses Orde r Schedule EKG EKG Routine Nonrheumatic aortic valve stenosis HTN, goal below 140/90 Dyslipidemia, goal LDL below 100 Ordered: 12/20/2023 CT CARDIAC CALCIUM SCORE ONLY - RAD Medical Imaging Routine Nonrheumatic aortic valve stenosis Expected: 12/21/2023, Expires: 01/18/2025 ECHO, COMPLETE (2D), TRANS-THORACIC Echocardiology Routine Nonrheumatic aortic valve stenosis Expected: 11/11/2024 (Approximate), Expires: 06/18/2025 Health Maintenance Due Date Last Done Comments [...] as of this encounter Visit Diagnoses Diagnosis Nonrheumatic aortic valve stenosis- Primary Aortic valve disorders LBBB (left bundle branch block) Other left bundle branch block HTN, goal below 140/90 Unspecified essential hypertension PVC (premature ventricular contraction) Other premature beats DYSLIPIDEMIA, GOAL LDL BELOW 100 Other and unspecified hyperlipidemia Need for prophylactic vaccination and inoculation against influenza documented in this encounter Care Teams Unit Educator Relationship Specialty Start Date End Date Elvis Flores MD [address] [place] [address] PCP - General 06/09/1998 documented as of this encounter"
--- OUTSIDE RECORDS SUMMARY | 2024-01-08 15:58 | External Medical Summary | Summary of Care ---
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 [employer] Name Role Phone Elvis Flores MD Primary Care Provider [phone] Reason for Visit * Reason Comments Outpatient Testing Encounter Details Date Type Department Care Team (Late st Contact Info) Description 09/05/2023 8:00 AM EDT Laboratory Laboratory, [place] [address] [place] [address] [place] [address], [place] [id number] Type 2 diabetes mellitus with hemoglobin A1c goal of less than 8.0% ([facility]); HTN, goal below 140/90; Encounter for long-term (current) use of other medications Allergies No known active allergiesdocumented as of this encounter (statuses as of 09/05/2023) Medications Medication Sig Dispensed Refills Start Date End Date Status ONE TOUCH ULTRA BONUS PACK KITIndications:DM type 2, goal A1c below 7 as directed 1 0 03/23/2004 Active LANCETS MISCIndications:DM type 2, goal A1c below 7 once daily 50 11 03/23/2004 Active VITAMIN D 1000 UNIT PO CAPSIndications:Darline min D deficiency 1 capsule daily 30 Cap 11 09/24/2010 Active CYANOCOBALAMIN (VITAMIN B-12) 100 MCG Tablet Take 1 Tablet by mouth in the morning. Active traMADol HCl 50 MG Oral Tablet (Ultram)Indications: Dental abscess Take 1 Tablet by mouth every 6 hours as needed for Pain, Severe. 15 Tablet 06/15/2022 Active metFORMIN HCl 1000 MG Oral Tablet (Glucophage)Indicati ons:Type 2 diabetes mellitus with hemoglobin A1c goal of less than 8.0% (HCC) TAKE 1 TABLET BY MOUTH TWICE DAILY 180 Tablet 1 01/24/2023 Active OneTouch Ultra In Vitro Strip (Glucose Blood) use to test blood sugars once daily as directed 100 Strip 3 04/02/2023 Active glipiZIDE ER 5 MG Oral Tablet Extended Release 24 Hour (Glucotrol XL)Indications:Type 2 diabetes mellitus with hemoglobin A1c goal of less than 8.0% (HCC) TAKE 1 TABLET BY MOUTH EVERY MORNING 90 Tablet 1 05/06/2023 Active Jardiance 25 MG Oral Tablet (Empagliflozin)Indic ations:Type 2 diabetes mellitus with hemoglobin A1c goal of less than 8.0% (HCC) TAKE 1 TABLET BY MOUTH ONCE DAILY 90 Tablet 1 05/30/2023 Active Lisinopril-hydroCHLO ROthiazide 10-12.5 MG Oral TabletIndications:HT N, goal below 140/90 TAKE 1/2 TABLET BY MOUTH ONCE DAILY 45 Tablet 08/09/2023 Active Vitamin C 125 MG Oral Tablet Chewable Take by mouth. Active Atorvastatin Calcium 40 MG Oral Tablet (Lipitor)Indications :Dyslipidemia, goal LDL below 100 Take 1 Tablet by mouth in the morning. 90 Tablet 3 09/04/2023 Active documented as of this encounter (statuses as of 09/05/2023) Active Problems Problem Noted Date Diagnosed Date Aortic valve stenosis 10/08/2022 Aortic valve sclerosis 04/29/2017 HTN, goal below 140/90 04/18/2015 Overview: Per HTN Protocol #27. Right thyroid nodule 01/29/2011 Vitamin D deficiency 09/24/2010 DYSLIPIDEMIA, GOAL LDL BELOW 100 01/27/2009 Overview: Per Lipid Taxonomy. History of tobacco use 06/15/2008 Overview: cigars E.D. 05/03/2008 documented as of this encounter (statuses as of 09/05/2023) Resolved Problems Problem Noted Date Diagnosed Date [...] as of this encounter (statuses as of 09/05/2023) Immunizations Name Administration Dates Next Due COVID-19 [...] on file documented as of this encounter Plan of Treatment Upcoming Encounters Date Type Department Care Team (Late st Contact Info) Description 11/12/2023 7:15 AM EDT Cardiac Studies Cardiac Studies, [facility] [address] [facility] [place] [address] 03/06/2024 9:40 AM EST Office Visit [facility] [address] [place] [id number] Elvis Flores MD [address] [place] [address] Pending Results Name Type Priority Associated Diagnoses Date /Time HEMOGLOBIN A1C Lab Routine Type 2 diabetes mellitus with hemoglobin A1c goal of less than 8.0% ([facility]) 09/05/2023 8:01 AM EDT RENAL FUNCTION PANEL Lab Routine HTN, goal below 140/90 09/05/2023 8:01 AM EDT VITAMIN B12 Lab Routine Encounter for long-term (current) use of other medications 09/05/2023 8:01 AM EDT ALBUMIN / CREATININE RATIO, URINE Lab Routine HTN, goal below 140/90 Encounter for long-term (current) use of other medications 09/05/2023 8:01 AM EDT CBC WITH WBC DIFFERENTIAL Lab Routine Encounter for long-term (current) use of other medications 09/05/2023 8:01 AM EDT LIPID PANEL WITH DIRECT LDL IF TG IS HIGH Lab Routine Encounter for long-term (current) use of other medications 09/05/2023 8:01 AM EDT CBC Lab Routine Encounter for long-term (current) use of other medications 09/05/2023 8:01 AM EDT DIFFERENTIAL, AUTOMATED Lab Routine Encounter for long-term (current) use of other medications 09/05/2023 8:01 AM EDT Health Maintenance Due Date Last Done Comments COVID-19 Vaccine ( season) 2022 12/15/2020, 05/19/2020, 04/28/2020, Additional history exists B-12 08/07/2023 08/06/2022, 080 05/2021, 10/21/2019, Additional history exists GFR 08/07/2023 08/06/2022, 08/0 05/2021, 11/11/2020, Additional history exists Influenza Vaccine (FLU shot) (#1) 2023 11/12/2022, 10/31/2022, 01/09/2022, Additional history exists Depression Screening 09/03/2024 09/04/2023 Albumin/Creatinine Ratio 08/06/2025 023, 09/14/2021, 11/18/2018, Additional history exists DTaP,Tdap,and Td Vaccines (4 [...] A1c goal of less than 8.0% (HCC) HTN, goal below 140/90 Unspecified essential hypertension Encounter for long-term (current) use of other medications documented in this encounter Care Teams B[employer] Relationship Specialty Start Date End Date Elvis Flores MD [address] [place] [address] PCP - General 06/09/1998 documented as of this encounter
--- OUTSIDE RECORDS SUMMARY | 2024-01-08 15:58 | External Medical Summary | Summary of Care ---
Author Name Unknown Organization [facility] Address [address] [place] [address] Phone [phone] Care Team Providers Care Boarder Hand Name Role Phone Elvis Flores MD Primary Care Provider [phone] Reason for Visit * Reason Onset Date Comments Appointment 12/20/2023 Encounter Details Date Type Department Care Team (Late st Contact Info) Description 12/20/2023 Telephone Cardiology, [facility] [address] [facility] [place] [address] Sonido Velasquez, [address] [facility] [place], [place] [address] Appointment Allergies No known active allergiesdocumented as [...] 05/29/2004 10/30/2016 Open wound of trunk 03/13/2004 09/19/20 17 SCIATICA, RIGHT 06/11/2001 10/30/[address] [...] CALCIUM SCORE ONLY - RAD [CTCASCRAD] (Order [id number]) documented in this encounter Plan of Treatment Upcoming Encounters Date Type Department Care Team (Late st Contact Info) Description 03/06/2024 9:40 AM EST Office Visit [facility] [place] [facility] [address] [facility] [place] [phone] Elvis Flores MD [address] [facility] [place] [address] 11/11/2024 9:30 AM EDT Cardiac Studies Cardiac Studies, [facility] [address] [facility] [place] [address] Health Maintenance Due Date Last Done Comments [...] filedocumented as of this encounter Care Teams Boarder Hand Relationship Specialty Start Date End Date Elvis Flores MD [address] [place] [address] PCP - General 06/09/1998 documented as of this encounter
--- OUTSIDE RECORDS SUMMARY | 2024-01-08 15:58 | External Medical Summary | Summary of Care ---
Author Name Unknown Organization [facility] Address [address] [place] [address] Phone [phone] Care Team Providers Care Horseshoer Name Role Phone Elvis Flores MD Primary Care Provider [phone] Reason for Referral * Evaluate & Treat - Unlimited Visits (Within 10 days (routine)) - Authorized Specialty Diagnoses / Procedures Referred By Aron reyes Referred To Contact Physical Therapy / Physical Medicine And Rehab Diagnoses Acute midline low back pain without sciatica Elvis Flores MD [address] [place] [address] Referral ID Status Reason Start Date Expiration Date Visits Requested Visits Authorized [id number] Authorized Specialty Services Required 09/06/[phone] Question Answer Referral Priority Within 10 days (routine) Where should this appointment be scheduled? [facility] Encounter Details Date Type Department Care Team (Late st Contact Info) Description 09/06/2023 Telephone [facility] [address] [place] [phone] Elvis Flores MD [address] [place] [address] Allergies No known active allergiesdocumented as of this encounter (statuses as of 09/11/2023) Medications Medication Sig Dispensed Refills Start Date [...] as of this encounter (statuses as of 09/11/2023) Active Problems Problem Noted Date Diagnosed Date Aortic valve stenosis 10/08/2022 Aortic valve sclerosis 04/29/2017 HTN, goal below 140/90 04/18/2015 Overview: Per HTN Protocol #27. Right thyroid nodule 01/29/2011 Vitamin D deficiency 09/24/2010 DYSLIPIDEMIA, GOAL LDL BELOW 100 01/27/2009 Overview: Per Lipid Taxonomy. History of tobacco use 06/15/2008 Overview: cigars E.D. 05/03/2008 documented as of this encounter (statuses as of 09/11/2023) Resolved Problems Problem Noted Date Diagnosed Date [...] as of this encounter (statuses as of 09/11/2023) Immunizations Name Administration Dates Next Due COVID-19 [...] encounter Miscellaneous Notes * Telephone Encounter - La Carpenter OSA - 09/11/2023 9:29 AM EDT Faxed. 09/11/2023 * Telephone Encounter - Elvis Flores MD - 09/06/2023 5:02 PM EDT Referral placed * Telephone Encounter - Arti Feliz LPN - 09/06/2023 10:21 AM EDT Patient stopped in the office and requested a referral for PT be generated and sent to [facility] in [place]. Once Referral is generated we can fax the referral to [facility] at their fax number [phone]. documented in this encounter Plan of Treatment Upcoming Encounters Date Type Department Care Team (Late st Contact Info) Description 11/12/2023 7:15 AM EDT Cardiac Studies Cardiac Studies, [facility] [address] [place] [address] 03/06/2024 9:40 AM EST Office Visit [facility] [address] [facility] [address] Elvis Flores MD [address] [place] [address] Scheduled Referrals Name Type Priority Associated Diagnoses Orde r Schedule PHYSICAL THERAPY REFERRAL OP Referral Within 10 days (routine) Acute midline low back pain without sciatica Ordered: 09/06/2023 Health Maintenance Due Date Last Done Comments [...] as of this encounter Visit Diagnoses Diagnosis Acute midline low back pain without sciatica- Primary documented in this encounter Care Teams Horseshoer Relationship Specialty Start Date End Date Elvis Flores MD [address] [place] [address] PCP - General 06/09/1998 documented as of this encounter
--- OUTSIDE RECORDS SUMMARY | 2024-01-08 15:58 | External Medical Summary | Summary of Care ---
Author Name Unknown Organization [facility] Address [address] [place] [address] Phone [phone] Care Team Providers Care Joiner Name Role Phone Elvis Flores MD Primary Care Provider [phone] Reason for Visit * Reason Onset Date Comments No Show 12/30/2023 [facility] No Show Auto mation Encounter Details Date Type Department Care Team (Late st Contact Info) Description 12/30/2023 Telephone Cardiology, [facility] [address] [place] [address] Goldie Jean Baptiste, [address] [place] [address] No Show ([place] No Show Automation) Allergies No known active allergiesdocumented as of this encounter (statuses as of 12/30/2023) Medications ONE TOUCH ULTRA BONUS PACK KITIndications: [...] as of this encounter (statuses as of 12/30/2023) Active Problems Problem Noted Date Diagnosed Date Aortic valve stenosis 10/08/2022 Aortic valve sclerosis 04/29/2017 HTN, goal below 140/90 04/18/2015 Overview: Per HTN Protocol #27. Right thyroid nodule 01/29/2011 Vitamin D deficiency 09/24/2010 DYSLIPIDEMIA, GOAL LDL BELOW 100 01/27/2009 Overview (01/27/2009): Per Lipid Taxonomy. History of tobacco use 06/15/2008 Overview (11/19/2018): cigars E.D. 05/03/2008 documented as of this encounter (statuses as of 12/30/2023) Resolved Problems Problem Noted Date Diagnosed Date [...] as of this encounter (statuses as of 12/30/2023) Immunizations Name Administration Dates Next Due COVID-19 [...] encounter Miscellaneous Notes * Telephone Encounter - Sebastián, No Show - 12/30/2023 6:17 PM EST Dear Russ Love, Looks like you missed an appointment with GOLDIE JEAN BAPTISTE on 12/19/2023 at 09:00 AM. If you haven't already rescheduled, you have a couple of options: Reschedule in [employer] [employer]/scheduling Call us at [phone] Can't make a future appointment? Cancel and let someone else have your spot! It's easy to do via [employer] or by calling us. Thanks for trusting [facility] with your care. We hope to see you back in our office soon. Sincerely, GOLDIE JEAN BAPTISTE documented in this encounter Plan of Treatment Upcoming Encounters Date Type Department Care Team (Late st Contact Info) Description 03/06/2024 9:40 AM EST Office [facility] [address] [facility] [place] [address] Elvis Flores MD [address] [facility] [place] [address] 11/11/2024 9:30 AM EDT Cardiac Studies Cardiac Studies, [facility] [address] [place] [address] Health Maintenance Due Date Last Done Comments [...] filedocumented as of this encounter Care Teams Joiner Relationship Specialty Start Date End Date Elvis Flores MD [address] [place] [address] PCP - General 06/09/1998 documented as of this encounter
--- OUTSIDE RECORDS SUMMARY | 2024-01-08 15:58 | External Medical Summary | Summary of Care ---
Author Name Unknown Organization [facility] Address [address] [place] [address] Phone [phone] Care Team Providers Care Grinder Operator Automatic Name Role Phone Elvis Flores MD Primary Care Provider [phone] Reason for Visit * Reason Onset Date Comments Test Results 12/24/2023 Encounter Details Date Type Department Care Team (Late st Contact Info) Description 12/24/2023 Telephone Cardiology, [facility] [address] [facility] [place] [address] Sonido Velasquez, [address] [facility] [place] [address] Test Results (/) Allergies No known active allergiesdocumented as of [...] encounter Miscellaneous Notes * Telephone Encounter - Sonido Velasquez DO - 12/24/2023 5:05 PM EST I called patient reviewed the results of his CT aortic valve calcium score. The calcium score is elevated. Patient however notes no symptoms of aortic valve stenosis. I once again counseled him to be on thelookout for symptoms such as chest pain, shortness of breath, lightheadedness, dizziness, or passing out. For now continue with plans for ongoing echocardiographic and clinical surveillance, repeat echo to be performed at a 1 year interval from his previous. Patient confirmed understanding. Questions answered to his satisfaction. Sonido Velasquez DO documented in this encounter Plan of Treatment Upcoming Encounters Date Type Department Care Team (Late st Contact Info) Description 03/06/2024 9:40 AM EST Office [facility] [place] [address] [facility] [place] [address] Elvis Flores MD [address] [facility] [place] [address] 11/11/2024 9:30 AM EDT Cardiac Studies Cardiac Studies, [facility] [address] [facility] [place] [address] Health Maintenance Due Date Last Done Comments [...] filedocumented as of this encounter Care Teams Grinder Operator Automatic Relationship Specialty Start Date End Date Elvis Flores MD [address] [place] [address] PCP - General 06/09/1998 documented as of this encounter
--- OUTSIDE RECORDS SUMMARY | 2024-01-08 15:58 | External Medical Summary | Summary of Care ---
Author Name Unknown Organization [facility] Address [address] [place] [address] Phone [phone] Care Team Providers Care Librarian Helper Name Role Phone Alicja Flores MD Primary Care Provider [phone] Reason for Visit * Reason Comments eRx-Medication Refill Encounter Details Date Type Department Care Team (Late st Contact Info) Description 11/25/2023 Refill [facility] [address] [place] [address] Alicja Flores MD [address] [place] [address] Type 2 diabetes mellitus with hemoglobin A1c goal of less than 8.0% ([facility]) Allergies No known active allergiesdocumented as of this encounter (statuses as of 11/26/2023) Medications Medication Sig Dispensed Refills Start Date [...] as directed 100 Strip 3 04/02/2023 Active Lisinopril-hydro CHLOROthiazide 10-12.5 MG Oral TabletIndication [...] TWICE DAILY 180 Tablet 3 09/10/2023 Active glipiZIDE ER 5 MG Oral Tablet Extended Release 24 Hour (Glucotrol XL)Indications:T ype 2 diabetes mellitus with hemoglobin A1c goal of less than 8.0% (HCC) TAKE 1 TABLET BY MOUTH EVERY MORNING 90 Tablet 3 11/07/2023 Active Jardiance 25 MG Oral Tablet (Empagliflozin)I ndications:Type 2 diabetes mellitus with hemoglobin A1c goal of less than 8.0% (HCC) TAKE 1 TABLET BY MOUTH ONCE DAILY 90 Tablet 1 11/26/2023 Active Jardiance 25 MG Oral Tablet (Empagliflozin)I ndications:Type 2 diabetes mellitus with hemoglobin A1c goal of less than 8.0% (HCC) TAKE 1 TABLET BY MOUTH ONCE DAILY 90 Tablet 1 05/30/2023 11/26/2023 Discontinued documented as of this encounter (statuses as of 11/26/2023) Active Problems Problem Noted Date Diagnosed Date Aortic valve stenosis 10/08/2022 Aortic valve sclerosis 04/29/2017 HTN, goal below 140/90 04/18/2015 Overview: Per HTN Protocol #27. Right thyroid nodule 01/29/2011 Vitamin D deficiency 09/24/2010 DYSLIPIDEMIA, GOAL LDL BELOW 100 01/27/2009 Overview: Per Lipid Taxonomy. History of tobacco use 06/15/2008 Overview: cigars E.D. 05/03/2008 documented as of this encounter (statuses as of 11/26/2023) Resolved Problems Problem Noted Date Diagnosed Date [...] as of this encounter (statuses as of 11/26/2023) Immunizations Name Administration Dates Next Due COVID-19 mRNA, LNP-s, No Pre serve, 2-Dose Series (Moderna) 04/11/2020,03/14/2020 COVID-19 mRNA, LNP-s, No Pre serve, 2-Dose Series (Pfizer) 12/15/2020,05/19/2020,04/28/2020 PPD 01/29/2011 Pneumococcal Conjugate Vacc, 13 Valent (Prevnar) 01/13/2015 Pneumococcal Polysaccharide PPV23 (Pneumovax) 12/14/2005 Seasonal Influenza Vac., MDV , IM, 0.5 mL (Fluzone) 11/11/2013,01/05/2013,12/12/2011,10/30,11/28/2009,11/22/2008,05/03/2008 ,12/14/2005 Seasonal Influenza, High Dos e, Trivalent, PF, IM (Fluzone HD) 11/16/2017 Seasonal Influenza, PF, 6 M & above, [...] encounter Miscellaneous Notes * Telephone Encounter - Aimee Mueller RPh - 11/26/2023 1:57 PM EDTSigned Prescriptions: Disp Refills Jardiance 25 MG Oral Tablet (Empagliflozin)90 Tab*1 Sig: TAKE 1TABLET BY MOUTH ONCE DAILYAuthorizing Provider: ALICJA FLORES User: AIMEE MUELLER------- documented in this encounter Plan of Treatment Upcoming Encounters Date Type Department Care Team (Late st Contact Info) Description 03/06/2024 9:40 AM EST Office Visit [address] [address] Alicja Flores MD [address] [place] [address] Health Maintenance Due Date Last Done Comments Adult Wellness Visit 08/03/2022 08/03/2021 COVID-19 Vaccine ( season) 2023 12/15/2020, 05/19/2020, 04/28/2020, Additional history exists Influenza [...] A1c goal of less than 8.0% ([facility]) documented in this encounter Care Teams Librarian Helper Relationship Specialty Start Date End Date Alicja Flores MD [address] [facility] [place] [place] [address] PCP - General 06/09/1998 documented as of this encounter
--- OUTSIDE RECORDS SUMMARY | 2024-01-08 15:58 | External Medical Summary | Summary of Care ---
Author Name Unknown Organization [facility] Address [address] [place] [address] Phone [phone] Care Team Providers Care Tower Supervisor Name Role Phone Alicja Flores MD Primary Care Provider [phone] Reason for Visit * Reason Comments eRx-Medication Refill Encounter Details Date Type Department Care Team (Late st Contact Info) Description 11/06/2023 Refill Pharmacy, [place] [address] [place] [address] Alicja Flores MD [address] [place] [address] Type 2 diabetes mellitus with hemoglobin A1c goal of less than 8.0% ([facility]) Allergies No known active allergiesdocumented as of this encounter (statuses as of 11/07/2023) Medications Medication Sig Dispensed Refills Start Date [...] as directed 100 Strip 3 04/02/2023 Active Jardiance 25 MG Oral Tablet (Empagliflozin)I [...] EVERY MORNING 90 Tablet 3 11/07/2023 Active glipiZIDE ER 5 MG Oral Tablet Extended Release 24 Hour (Glucotrol XL)Indications:T ype 2 diabetes mellitus with hemoglobin A1c goal of less than 8.0% (HCC) TAKE 1 TABLET BY MOUTH EVERY MORNING 90 Tablet 1 05/06/2023 11/07/2023 Discontinued documented as of this encounter (statuses as of 11/07/2023) Active Problems Problem Noted Date Diagnosed Date Aortic valve stenosis 10/08/2022 Aortic valve sclerosis 04/29/2017 HTN, goal below 140/90 04/18/2015 Overview: Per HTN Protocol #27. Right thyroid nodule 01/29/2011 Vitamin D deficiency 09/24/2010 DYSLIPIDEMIA, GOAL LDL BELOW 100 01/27/2009 Overview: Per Lipid Taxonomy. History of tobacco use 06/15/2008 Overview: cigars E.D. 05/03/2008 documented as of this encounter (statuses as of 11/07/2023) Resolved Problems Problem Noted Date Diagnosed Date [...] as of this encounter (statuses as of 11/07/2023) Immunizations Name Administration Dates Next Due COVID-19 mRNA, LNP-s, No Pre serve, 2-Dose Series (Moderna) 04/11/2020,03/14/2020 COVID-19 mRNA, LNP-s, No Pre serve, 2-Dose Series (Pfizer) 12/15/2020,05/19/2020,04/28/2020 PPD 01/29/2011 Pneumococcal Conjugate Vacc, 13 Valent (Prevnar) 01/13/2015 Pneumococcal Polysaccharide PPV23 (Pneumovax) 12/14/2005 Seasonal Influenza, High Dos e, Trivalent, PF, IM (Fluzone HD) 11/16/2017 Seasonal Influenza, PF, 6 M & above, IM , (FluLaval or Fluzone) 12/04/2017 Seasonal Influenza, Quadriva lent Hd (Fluzone Hd) 11/12/2022,01/09/2022,01/12/2021 Seasonal Influenza, Quadriva lent, No Preserve, IM 10/30/2016,12/20/2015,11/25/2014 Seasonal Influenza, Trivalen t, (IIV3), with Preserv, (Fluzone) 11/11/2013,01/05/2013,12/12/2011,10/30,11/28/2009,11/22/2008,05/03/2008 ,12/14/2005 Seasonal Influenza, Trivalen t, Adjuvanted, 65+ YRS, [...] encounter Miscellaneous Notes * Telephone Encounter - Ana Maria Pitts [facility] - 11/07/2023 10:04 AM EDTSigned Prescriptions: Disp Refills glipiZIDE ER 5 MG Oral Tablet Extended Rel*90 Tab*3 Sig: TAKE 1 TABLET BY MOUTH EVERY MORNING Authorizing Provider: ALICJA FLORES Ordering User: ANA MARIA PITTS * Telephone Encounter - Catalina Bryant [facility] - 11/06/2023 7:04 AM EDT Pending Prescriptions: Disp Refills glipiZIDE ER 5 MG Oral Tablet Extended Rel*90 Tab*0 Sig: TAKE 1TABLET BY MOUTH EVERY MORNING documented in this encounter Plan of Treatment Upcoming Encounters Date Type Department Care Team (Late st Contact Info) Description 11/12/2023 7:15 AM EDT Cardiac Studies Cardiac Studies, [facility] [address] [facility] [place] [address] 03/06/2024 9:40 AM EST Office Visit [facility] [address] [place] [facility] [place] [address] Alicja Flores MD [address] [place] [address] Health Maintenance Due Date Last [...] (HCC) documented in this encounter Care Teams Tower Supervisor Relationship Specialty Start Date End Date Alicja Flores MD [address] [place] [address] PCP - General 06/09/1998 documented as of this encounter
--- OUTSIDE RECORDS SUMMARY | 2024-01-08 15:58 | External Medical Summary ---
Author Name Unknown Address Unknown Organization K01:[facility] [place] [address] [place] [address] Laboratory Report Ordering Provider Test Date Status KRISHNA NUGENT 09/05/2023 08:01:15 Final Observation Date Value Abnormality Reference (Units ) Status BUN 09/05/2023 08:01:15 17 6-20 (mg/dL) Final Creatinine 09/05/2023 08:01:15 0.8 0.6-1.2 (mg/dL) Final Glomerular filtration rate/1.73 sq M.predicted [Volume Rate/Area] in Serum, Plasma or Blood by Creatinine-based formula (CKD-EPI) 09/05/2023 08:01:15 87 >=60 (mL/min) Final eGFR is calculated based on the CKD-EPI 2020 equation. Sodium 09/05/2023 08:01:15 140 135-146 (m mol/L) Final Potassium 09/05/2023 08:01:15 4.3 3.5-5.1 (m mol/L) Final Cl 09/05/2023 08:01:15 103 98-107 (mm ol/L) Final CO2 09/05/2023 08:01:15 25 22-32 (mmo l/L) Final Anion gap 09/05/2023 08:01:15 12 7-15 (mmol /L) Final Glucose 09/05/2023 08:01:15 112 70-120 (mg /dL) Final Calcium 09/05/2023 08:01:15 9.5 8.4-10.2 ( mg/dL) Final Albumin 09/05/2023 08:01:15 4.8 3.8-5.0 (g /dL) Final Phosphate 09/05/2023 08:01:15 3.9 2.5-4.8 (m g/dL) Final Performing Location [facility] - [address] [place] [address]
--- OUTSIDE RECORDS SUMMARY | 2024-01-08 15:58 | External Medical Summary | Summary of Care ---
Author Name Unknown Organization [facility] Address [address] [place] [address] Phone [phone] Care Team Providers Care Feed Mill Manager Name Role Phone Alicja Flores MD Primary Care Provider [phone] Reason for Visit * Reason Comments eRx-Medication Refill Encounter Details Date Type Department Care Team (Late st Contact Info) Description 01/01/2024 Refill [facility] [address] [place] [address] Alicja Flores MD [address] [place] [address] HTN, goal below 140/90 Allergies No known active allergiesdocumented as of this encounter (statuses as of 01/02/2024) Medications ONE TOUCH ULTRA BONUS PACK KITIndications :DM type 2, goal A1c below 7 as directed 1 0 03/23/19 05 Active LANCETS MISCIndication s:DM type 2, goal A1c below 7 once daily 50 11 03/23/19 05 Active VITAMIN D 1000 UNIT PO CAPSIndication s:Vitamin D deficiency 1 capsule daily 30 Cap 11 09/25/19 11 Active CYANOCOBALAMIN (VITAMIN B-12) 100 MCG Tablet Take 1 Tablet by mouth in the morning. Active traMADol HCl 50 MG Oral Tablet (Ultram)Indica tions:Dental abscess Take 1 Tablet by mouth every 6 hours as needed for Pain, Severe. 15 Tablet 06/16/19 23 Active Additional Information Patient not taking.Reported on 12/20/2023 Quitt.chuch Ultra In Vitro Strip (Glucose Blood) use to test blood sugars once daily as directed 100 Strip 3 04/02/19 24 Active Vitamin C 125 MG Oral Tablet Chewable Take by mouth. Activ e Atorvastatin Calcium 40 MG Oral Tablet (Lipitor)Indic ations:Dyslipi demia, goal LDL below 100 Take 1 Tablet by mouth in the morning. 90 Tablet 3 09/04/19 24 Active metFORMIN HCl 1000 MG Oral Tablet (Glucophage)In dications:Type 2 diabetes mellitus with hemoglobin A1c goal of less than 8.0% (HCC) TAKE 1 TABLET BY MOUTH TWICE DAILY 180 Tablet 3 09/10/19 24 Active glipiZIDE ER 5 MG Oral Tablet Extended Release 24 Hour (Glucotrol XL)Indications :Type 2 diabetes mellitus with hemoglobin A1c goal of less than 8.0% (HCC) TAKE 1 TABLET BY MOUTH EVERY MORNING 90 Tablet 3 11/07/19 24 Active Jardiance 25 MG Oral Tablet (Empagliflozin )Indications:T ype 2 diabetes mellitus with hemoglobin A1c goal of less than 8.0% (HCC) TAKE 1 TABLET BY MOUTH ONCE DAILY 90 Tablet 1 11/26/19 24 Active Lisinopril-hyd roCHLOROthiazi de 10-12.5 MG Oral TabletIndicati ons:HTN, goal below 140/90 TAKE 1/2 TABLET BY MOUTH EVERY DAY 45 Tablet 2 01/02/20 24 Active Lisinopril-hyd roCHLOROthiazi de 10-12.5 MG Oral TabletIndicati ons:HTN, goal below 140/90 TAKE 1/2 TABLET BY MOUTH ONCE DAILY 45 Tablet 08/09/19 24 024 Discontinued documented as of this encounter (statuses as of 01/02/2024) Active Problems Problem Noted Date Diagnosed Date Aortic valve stenosis 10/08/2022 Aortic valve sclerosis 04/29/2017 HTN, goal below 140/90 04/18/2015 Overview: Per HTN Protocol #27. Right thyroid nodule 01/29/2011 Vitamin D deficiency 09/24/2010 DYSLIPIDEMIA, GOAL LDL BELOW 100 01/27/2009 Overview (01/27/2009): Per Lipid Taxonomy. History of tobacco use 06/15/2008 Overview (11/19/2018): sari Ga 05/03/2008 documented as of this encounter (statuses as of 01/02/2024) Resolved Problems Problem Noted Date Diagnosed Date [...] as of this encounter (statuses as of 01/02/2024) Immunizations Name Administration Dates Next Due COVID-19 [...] encounter Miscellaneous Notes * Telephone Encounter - Lanette Suresh, [facility] - 01/02/2024 4:02 PM ESTSigned Prescriptions: Disp Refills Lisinopril-hydroCHLOROthiazide 10-12.5 MG *45 Tab*2 Sig: TAKE 1/2 TABLET BY MOUTH EVERY DAYAuthorizing Provider: ALICJA FLORES User: LANTETE SURESH----- Electronically signed by Lanette Suresh [facility] at 01/02/2024 4:02 PM EST documented in this encounter Plan of Treatment Upcoming Encounters Date Type Department Care Team (Late st Contact Info) Description 03/06/2024 9:40 AM EST Office Visit [facility] [place] [address] [facility] [place] [address] Alicja Flores MD [address] [facility] [place] [phone] 11/11/2024 9:30 AM EDT Cardiac Studies Cardiac Studies, [facility] [address] [facility] [place] [address] Health Maintenance Due Date Last Done Comments [...] as of this encounter Visit Diagnoses Diagnosis HTN, goal below 140/90 Unspecified essential hypertension documented in this encounter Care Teams Feed Mill Manager Relationship Specialty Start Date End Date Alicja Flores MD [address] [place] [address] PCP - General 06/09/1998 documented as of this encounter
--- OUTSIDE RECORDS SUMMARY | 2024-01-08 15:59 | External Medical Summary ---
Author Name Unknown Address Unknown Organization [id number]:[facility] [place] [address] [place] [address] Laboratory Report Ordering Provider Test Date Status KRISHNA NUGENT 09/05/2023 08:01:15 Final Normal: <30 mg/g creatinine< br/>High: 30-300 mg/g creatinine
Very High: >300 mg/g creatinine
Nephrotic: >2200 mg/g creatinine Observation Date Value Abnormality Reference (Units ) Status Albumin, Urine 09/05/2023 08:01:15 <1.20 (mg/dL) Final Creatinine, Urine 09/05/2023 08:01:15 64 (mg/dL) Final Albumin/Creatinine [Mass Ratio] in Urine 09/05/2023 08:01:15 <19 <30 (mg/g Creat) Final Performing Location [facility] [place] [address] [place] [address]
--- OUTSIDE RECORDS SUMMARY | 2024-01-08 15:59 | External Medical Summary | Summary of Care ---
Author Name Unknown Organization [facility] Address [address] [place] [address] Phone [phone] Care Team Providers Care Pharmacy Tech Name Role Phone Elvis Flores MD Primary Care Provider [phone] Reason for Visit * Reason Comments Follow Up Patient is here toda y for a follow up.Patient states he has pain in his lower back that started about a week ago, patient has been using OTC creams and pain meds to help and has noticed a small difference.Patient would like to discuss using tramadol for the pain. Encounter Details Date Type Department Care Team (Late st Contact Info) Description 09/04/2023 9:40 AM EDT Office Visit [facility] [address] [place] [address] Elvis Flores MD [address] [place] [address] Type 2 diabetes mellitus with hemoglobin A1c goal of less than 8.0% ([facility])*; Screening for depression; HTN, goal below 140/90; Dyslipidemia, goal LDL below 100; Aortic valve stenosis, etiology of cardiac valve disease unspecified Allergies No known active allergiesdocumented as of this encounter (statuses as of 09/04/2023) Medications Medication Sig Dispensed Refills Start Date [...] TWICE DAILY 180 Tablet 1 01/24/2023 Active Atorvastatin Calcium 40 MG Oral Tablet (Lipitor)Indications :Dyslipidemia, goal LDL below 100 TAKE 1 TABLET BY MOUTH ONCE DAILY 90 Tablet 1 03/20/2023 Active OneTouch Ultra In Vitro Strip (Glucose [...] Oral Tablet Chewable Take by mouth. Active documented as of this encounter (statuses as of 09/04/2023) Active Problems Problem Noted Date Diagnosed Date Aortic valve stenosis 10/08/2022 Aortic valve sclerosis 04/29/2017 HTN, goal below 140/90 04/18/2015 Overview: Per HTN Protocol #27. Right thyroid nodule 01/29/2011 Vitamin D deficiency 09/24/2010 DYSLIPIDEMIA, GOAL LDL BELOW 100 01/27/2009 Overview: Per Lipid Taxonomy. History of tobacco use 06/15/2008 Overview: cigars E.D. 05/03/2008 documented as of this encounter (statuses as of 09/04/2023) Resolved Problems Problem Noted Date Diagnosed Date [...] as of this encounter (statuses as of 09/04/2023) Immunizations Name Administration Dates Next Due COVID-19 [...] Pipe Q uit: 07/12/2014 Smokeless Tobacco: Never Tobacco Cessation:Counseling Given: Not Answered Comments:smokes cigar occasionaly Alcohol Use Standard Drinks/Week Comments Yes 0 [...] Sign Reading Time Taken Comments Blood Pressure 134/60 09/04/2023 9:28 AM EDT Pulse 78 09/04/2023 9:28 AM EDT Temperature 36.3 C (97.4 F) 09/04/2023 9:28 AM ED T Respiratory Rate 16 09/04/2023 9:28 AM EDT Oxygen Saturation 97% 09/04/2023 9:28 AM EDT Inhaled Oxygen Concentration - - Weight 82.8 kg (182 lb 9.6 oz) 09/04/2023 9:28 A M EDT Height 178.4 cm (5' 10.25") 09/04/2023 9:28 AM E DT Body Mass Index 26.01 09/04/2023 9:28 AM EDT documented in this encounter Progress Notes * Elvis Flores MD - 09/04/2023 10:04 AM EDT Subjective: Russ Love is a 83 year old male. Chief Complaint Patient presents with Follow Up Patient is here today for a follow up. Patient states he has pain in his lower back that started about a week ago, patient has been using OTC creams and pain meds to help and has noticed a small difference. Patient would like to discuss using tramadol for the pain. HPI: 83-year-old seen today as a routine six-month/annual exam. He has had bilateral carpal tunnel syndrome surgery with Dr. Sonido Vasquez. Um seems to be doing well although he notes he has had more soreness after the left side which was the most recent than he did with the right. Has developed lowback pain especially over the last week. Does not recall any specific cause. Does not have radiation into the buttocks or down the legs. Has used occasional Tylenol but not on a regular basis. Notes that he had some tramadol in the post operative time span after carpal tunnel release surgery and that was helpful. He is not bothered with chest pain or shortness of breath out of the ordinary. He still hand mowinga portion of his lawn. Now he has a neighbor with a tractor mowing in his backyard. Has an echocardiogram for surveillance of the aortic stenosis November 12, 2023. Patient Active Problem List Diagnosis E.D. History of tobacco use DYSLIPIDEMIA, GOAL LDL BELOW 100 Vitamin D deficiency Right thyroid nodule HTN, goal below 140/90 Aortic valve sclerosis Aortic valve stenosis Current Outpatient Medications Medication Sig Dispense Refill ONE TOUCH ULTRA BONUS PACK KIT as directed 1 0 LANCETS MISC once daily 50 11 VITAMIN D 1000 UNIT PO CAPS 1 capsule daily 30 Cap 11 CYANOCOBALAMIN (VITAMIN B-12) 100 MCG Tablet Take 1 Tablet by mouth in the morning. traMADol HCl 50 MG Oral Tablet (Ultram) Take 1 Tablet by mouth every 6 hours as needed for Pain, Severe. 15 Tablet 0 metFORMIN HCl 1000 MG Oral Tablet (Glucophage) TAKE 1 TABLET BY MOUTH TWICE DAILY 180 Tablet 1 Atorvastatin Calcium 40 MG Oral Tablet (Lipitor) TAKE 1 TABLET BY MOUTH ONCE DAILY 90 Tablet 1 OneTouch Ultra In Vitro Strip (Glucose Blood) use to test blood sugars once daily as directed 100 Strip 3 glipiZIDE ER 5 MG Oral Tablet Extended Release 24 Hour (Glucotrol XL) TAKE 1 TABLET BY MOUTH EVERY MORNING 90 Tablet 1 Jardiance 25 MG Oral Tablet (Empagliflozin) TAKE 1 TABLET BY MOUTH ONCE DAILY 90 Tablet 1 Lisinopril-hydroCHLOROthiazide 10-12.5 MG Oral Tablet TAKE 1/2 TABLET BY MOUTH ONCE DAILY 45 Tablet0 Vitamin C 125 MG Oral Tablet Chewable Take by mouth. No current facility-administered medications for this visit. Review of patient's allergies indicates: No Known Allergies Objective: BP 134/60 | Pulse 78 | Temp 36.3 C (97.4 F) (Tympanic) | Resp 16 | Ht 1.784 m (5' 10.25") | Wt 82.8 kg (182 lb 9.6 oz) | SpO2 97% | BMI 26.01 kg/m | BSA 2.03 m Physical Exam: CONST: alert, pleasant, no acute distress HEAD: normocephalic, atraumatic NECK: supple, soft, no adenopathy EARS: canals normal, TMs normal Eyes - PERRLA, EOM'I OROPHARYNX: clear, no swelling or erythema, moist CV: regular rate and rhythm, grade 3/6 systolic murmur CHEST: clear to auscultation bilaterally, no rales or wheezing ABD: soft, non tender, non distended, no masses or hepatosplenomegaly EXT: no edema, no joint swelling or deformities, NEURO: AAOx3, no gross focal deficits, cerebellar signs normal, affect appropriate MENTAL STATUS: no evidence of thought disorder, no delusional thought, no evidence of paranoia, thought is non-tangential. SKIN: no rash or significant lesions Back: He definitely has evidence of some paralumbar muscle spasm. He walks forward flexed at the waist. ASSESSMENT/PLAN: Diabetes mellitus type 2-he has dramatically improved his overall diabetic control between summer in the winter of 2023 so that last hemoglobin A1c 6 months ago was down to 7.1. He remains onJardiance 25 mg daily and glipizide 5 mg daily Aortic stenosis-needs to have continued surveillance. As mentioned he is scheduled for another echo. Hypertension-reasonable control. Although he does not particularly like cutting his lisinopril/hydrochlorothiazide, he is willing to do it in Low back pain-I suspect this is related to a flare of underlying degenerative disc disease in he may also have facet arthropathy. Certainly has some associated para lumbar muscle spasm. I do not think the cause is related to any vertebral fracture such as a compression fracture and I do not think it is due to a significant nerve impingement. I recommended against using opioids for this condition. He can use Tylenol 500 mg, 2 tablets up to 3 times a day on a regular basis new line he can use [id number] topical lidocaine i.e. 4% patches on 12 hours off 12 hours. I suggested physical therapy. He wants to hold off on that for right now but has not ruled it out and will get back in touch with me if he wants to proceed. He mentioned the possibility of getting a back brace which Um okay with but do not feels strongly for him to do it. He is due for blood work to include comprehensive metabolic panel, lipid panel, hemoglobin A1c, vitamin B12 and CBC which he will have done tomorrow. I will see him again in 6 months Elvis Flores MD documented in this encounter Plan of Treatment Upcoming Encounters Date Type Department Care Team (Late st Contact Info) Description 09/05/2023 8:00 AM EDT Laboratory Laboratory, [place] [address] [place] [facility] [place] [id number] [facility] [address] [place] [facility] [place] [address] 11/12/2023 7:15 AM EDT Cardiac Studies Cardiac Studies, [facility] [address] [facility] [place] [address] 03/06/2024 9:40 AM EST Office Visit [facility] [place] [address] [facility] [address] Elvis Flores MD [address] [place] [facility] [place] [address] Health Maintenance Due Date Last Done Comments COVID-19 Vaccine ( season) 2022 12/15/2020, 05/19/2020, 04/28/2020, Additional history exists B-12 08/07/2023 08/06/2022, 080 05/2021, 10/21/2019, Additional history exists GFR 08/07/2023 08/06/2022, 080 05/2021, 11/11/2020, Additional history exists Influenza Vaccine [...] hemoglobin A1c goal of less than 8.0% (HCC)- Primary Screening for depression HTN, goal below 140/90 Unspecified essential hypertension Dyslipidemia, goal LDL below 100 Other and unspecified hyperlipidemia Aortic valve stenosis, etiology of cardiac valve disease unspecified documented in this encounter Care Teams Pharmacy Tech Relationship Specialty Start Date End Date Elvis Flores MD [address] [place] [address] PCP - General 06/09/1998 documented as of this encounter
--- OUTSIDE RECORDS SUMMARY | 2024-01-08 15:59 | External Medical Summary ---
Author Name Unknown Address Unknown Organization K01:[facility]ATORY [facility] [place] - [address] [place] [address] Laboratory Report Ordering Provider Test Date Status AYSE OROPEZA 09/05/2023 08:01:15 Final Observation Date Value Abnormality Reference (Units ) Status HbA1C 09/05/2023 08:01:15 6.6 Above high normal 4. 0-5.6 (%) Final The use of HbA1c to monitor glycemic status is based on normal hemoglobin and HbA composition. This test should not be used in patients with abnormal hemoglobin that affects the half life of the red blood cell or the in vivo glycation rates. Glucose, estimated average 09/05/2023 08:01:15 143 Above high normal <126 (mg/dL) Tonny rodriguez Performing Location [facility] [place] - [address] [place] [address]
--- OUTSIDE RECORDS SUMMARY | 2024-01-08 15:59 | External Medical Summary | Summary of Care ---
Author Name Unknown Organization [facility] Address [address] [place] [address] Phone [phone] Care Team Providers Care Hydraulic Oil Tool Operator Name Role Phone Alicja Flores MD Primary Care Provider [phone] Encounter Details Date Type Department Care Team (Late st Contact Info) Description 09/04/2023 Telephone [facility] [address] [place] [address] Alicja Flores MD [address] [place] [address] Allergies No known active allergiesdocumented as of this encounter (statuses as of 09/04/2023) Medications Medication Sig Dispensed Refills Start Date End Date Status ONE TOUCH ULTRA BONUS PACK KITIndications:DM type 2, goal A1c below 7 as directed 1 0 03/23/2004 Active LANCETS MISCIndications:D M type 2, goal A1c below 7 once daily 50 11 03/23/2004 Active VITAMIN D 1000 UNIT PO CAPSIndications:V itamin D deficiency 1 capsule daily 30 Cap 11 09/24/2010 Active CYANOCOBALAMIN (VITAMIN B-12) 100 MCG Tablet Take 1 Tablet by mouth in the morning. Active traMADol HCl 50 MG Oral Tablet (Ultram)Indicatio ns:Dental abscess Take 1 Tablet by mouth every 6 hours as needed for Pain, Severe. 15 Tablet 06/15/2022 Active metFORMIN HCl 1000 MG Oral Tablet (Glucophage)Indic ations:Type 2 diabetes mellitus with hemoglobin A1c goal of less than 8.0% (HCC) TAKE 1 TABLET BY MOUTH TWICE DAILY 180 Tablet 1 01/24/2023 Active OneTouch Ultra In Vitro Strip (Glucose Blood) use to test blood sugars once daily as directed 100 Strip 3 04/02/2023 Active glipiZIDE ER 5 MG Oral Tablet Extended Release 24 Hour (Glucotrol XL)Indications:Ty pe 2 diabetes mellitus with hemoglobin A1c goal of less than 8.0% (HCC) TAKE 1 TABLET BY MOUTH EVERY MORNING 90 Tablet 1 05/06/2023 Active Jardiance 25 MG Oral Tablet (Empagliflozin)In dications:Type 2 diabetes mellitus with hemoglobin A1c goal of less than 8.0% (HCC) TAKE 1 TABLET BY MOUTH ONCE DAILY 90 Tablet 1 05/30/2023 Active Lisinopril-hydroC HLOROthiazide 10-12.5 MG Oral TabletIndications :HTN, goal below 140/90 TAKE 1/2 TABLET BY MOUTH ONCE DAILY 45 Tablet 08/09/2023 Active Vitamin C 125 MG Oral Tablet Chewable Take by mouth. Active Atorvastatin Calcium 40 MG Oral Tablet (Lipitor)Indicati ons:Dyslipidemia, goal LDL below 100 Take 1 Tablet by mouth in the morning. 90 Tablet 3 09/04/2023 Active Atorvastatin Calcium 40 MG Oral Tablet (Lipitor)Indicati ons:Dyslipidemia, goal LDL below 100 TAKE 1 TABLET BY MOUTH ONCE DAILY 90 Tablet 1 03/20/2023 09/04/2023 Discontinued (Refill) documented as of this encounter (statuses as [...] encounter Miscellaneous Notes * Telephone Encounter - Alicja Flores MD - 09/04/2023 7:14 PM EDTSigned Prescriptions: Disp Refills Atorvastatin Calcium 40 MG Oral Tablet (Li*90 Tab*3 Sig: Take 1 Tablet by mouth in the morning.Authorizing Provider: ALICJA FLORES documented in this encounter Plan of Treatment Upcoming Encounters Date Type Department Care Team (Late st Contact Info) Description 09/05/2023 8:00 AM EDT Laboratory Laboratory, [place] [address] [place] [facility] [place] [id number] [place], [facility] [address] [place] [facility] [address] 11/12/2023 7:15 AM EDT Cardiac Studies Cardiac Studies, [address] [place] [address] 03/06/2024 9:40 AM EST Office Visit [facility] [place] [address] [facility] [address] Alicja Flores MD [address] [place] [facility] [facility] [place] [address] Health Maintenance Due Date Last Done Comments COVID-19 Vaccine ( season) 2022 12/15/2020, 05/19/2020, 04/28/2020, Additional history exists B-12 08/07/2023 08/06/2022, 05/2021, 10/21/2019, Additional history exists GFR 08/07/2023 [...] as of this encounter Visit Diagnoses Diagnosis Dyslipidemia, goal LDL below 100 Other and unspecified hyperlipidemia documented in this encounter Care Teams Hydraulic Oil Tool Operator Relationship Specialty Start Date End Date Alicja Flores MD [address] [place] [facility] [facility] [place] [address] PCP - General 06/09/1998 documented as of this encounter
--- OUTSIDE RECORDS SUMMARY | 2024-01-08 15:59 | External Medical Summary | Summary of Care ---
Author Name Unknown Organization [facility] Address [address] [place] [address] Phone [phone] Care Team Providers Care Machine Adjuster Leader Name Role Phone Elvis Flores MD Primary Care Provider [phone] Encounter Details Date Type Department Care Team (Late st Contact Info) Description 08/13/2023 Orders Only PATIENT PORTAL DO NOT DELETE THIS DEPT USED BY [place] [address] Allergies No known active allergiesdocumented as of this encounter (statuses as of 08/13/2023) Medications Medication Sig Dispensed Refills Start Date End Date Status ONE TOUCH ULTRA BONUS PACK KITIndications:DM type 2, goal A1c below 7 as directed 1 0 03/23/2004 Active LANCETS MISCIndications:DM type 2, goal A1c below 7 once daily 50 11 03/23/2004 Active VITAMIN D 1000 UNIT PO CAPSIndications:Vi tamin D deficiency 1 capsule daily 30 Cap 11 09/24/2010 Active CYANOCOBALAMIN (VITAMIN B-12) 100 MCG Tablet Take 1 Tablet by mouth in the morning. Active traMADol HCl 50 MG Oral Tablet (Ultram)Indication s:Dental abscess Take 1 Tablet by mouth every 6 hours as needed for Pain, Severe. 15 Tablet 06/15/2022 Active Additional Information Patient not taking.Reported on 12/18/2022 metFORMIN HCl 1000 MG Oral Tablet (Glucophage)Indica tions:Type 2 diabetes mellitus with hemoglobin A1c goal of less than 8.0% (HCC) TAKE 1 TABLET BY MOUTH TWICE DAILY 180 Tablet 1 01/24/2023 Active Atorvastatin Calcium 40 MG Oral Tablet (Lipitor)Indicatio ns:Dyslipidemia, goal LDL below 100 TAKE 1 TABLET BY MOUTH ONCE DAILY 90 Tablet 1 03/20/2023 Active OneTouch Ultra In Vitro Strip (Glucose Blood) use to test blood sugars once daily as directed 100 Strip 3 04/02/2023 Active glipiZIDE ER 5 MG Oral Tablet Extended Release 24 Hour (Glucotrol XL)Indications:Typ e 2 diabetes mellitus with hemoglobin A1c goal of less than 8.0% (HCC) TAKE 1 TABLET BY MOUTH EVERY MORNING 90 Tablet 1 05/06/2023 Active Jardiance 25 MG Oral Tablet (Empagliflozin)Ind ications:Type 2 diabetes mellitus with hemoglobin A1c goal of less than 8.0% (HCC) TAKE 1 TABLET BY MOUTH ONCE DAILY 90 Tablet 1 05/30/2023 Active Lisinopril-hydroCH LOROthiazide 10-12.5 MG Oral TabletIndications: HTN, goal below 140/90 TAKE 1/2 TABLET BY MOUTH ONCE DAILY 45 Tablet 08/09/2023 Active documented as of this encounter (statuses as of 08/13/2023) Active Problems Problem Noted Date Diagnosed Date Aortic valve stenosis 10/08/2022 Aortic valve sclerosis 04/29/2017 HTN, goal below 140/90 04/18/2015 Overview: Per HTN Protocol #27. Right thyroid nodule 01/29/2011 Vitamin D deficiency 09/24/2010 DYSLIPIDEMIA, GOAL LDL BELOW 100 01/27/2009 Overview: Per Lipid Taxonomy. History of tobacco use 06/15/2008 Overview: cigars E.D. 05/03/2008 documented as of this encounter (statuses as of 08/13/2023) Resolved Problems Problem Noted Date Diagnosed Date [...] as of this encounter (statuses as of 08/13/2023) Immunizations Name Administration Dates Next Due COVID-19 [...] Types Packs/Day Years Used Date Smoking Tobacco: Some Days Pipe Last attempted to quit: 07/12/2014 Smokeless Tobacco: Never Comments:smokes cigar occasi onaly Alcohol Use Standard Drinks/Week Comments Yes 0 (1 standard drink = 0.6 oz pur e alcohol) occ beer PHQ-2 Answer Date Recorded PHQ Adult Total Score 0 08/03/2021 Hunger Vital Sign Answer Date Recorded Within [...] Description 09/04/2023 9:40 AM EDT Office Visit [facility] [address] [place] [facility] [place] [address] Elvis Flores MD [address] [place], [place] [id number] 11/12/2023 7:15 AM EDT Cardiac Studies Cardiac Studies, [facility] [address] [facility] [place] [address] Health Maintenance Due Date Last Done Comments Depression Screening 08/03/2022 08/03/2021 COVID-19 Vaccine ( season) 2022 12/15/2020, 05/19/2020, 04/28/2020, Additional history exists B-12 08/07/2023 08/06/2022, 08/0 05/2021, 10/21/2019, Additional history exists GFR 08/07/2023 08/06/2022, 08/0 05/2021, 11/11/2020, Additional history exists Albumin/Creatinine Ratio 08/06/2025 023, 09/14/2021, 11/18/2018, Additional history exists DTaP,Tdap,and Td Vaccines (4 - Td or Tdap) 09/01/2032 09/01/2022, 09/22/2012, 05/12/2004 Pneumococcal Vaccine: 65+ Years Completed 01/13/2015, 12/14/2005 Zoster Vaccines Completed 01/11/2020, 10/12, 09/18/2016 Diabetic Eye Exam Discontinued 06/28/2022, , 08/21/2014, Additional history exists Diabetic Foot Exam Discontinued 09/01/2022, 1 2020, 10/21/2019, Additional history exists Influenza Vaccine (FLU shot) Completed 11/12/2022, 10/31/2022, 01/09/2022, Additional history exists GARDASIL-HPV IMMUNIZATION SERIES Aged Out No longer eligible based on patient's age to complete this topic Hepatitis B Aged Out No longer eligi ble based on patient's age to complete this topic MENINGOCOCCAL (MENACTRA/MENVEO) Aged Out No longer eligible based on patient's age to complete this topic documented as of this encounter Medical Devices Not on filedocumented as of this encounter Care Teams Machine Adjuster Leader Relationship Specialty Start Date End Date Elvis Flores MD [address] [place] [address] PCP - General 06/09/1998 documented as of this encounter
--- OUTSIDE RECORDS SUMMARY | 2024-01-08 15:59 | External Medical Summary ---
Author Name Unknown Address Unknown Organization K01:[facility]ORY [facility] [place] [address] [place] [address] Laboratory Report Ordering Provider Test Date Status KRISHNA NUGETN 09/05/2023 08:01:15 Final Observation Date Value Abnormality Reference (Units ) Status Vitamin B12 09/05/2023 08:01:15 [phone] (pg/mL) Final Performing Location LABORATORY [facility] - [address] [place] [address]
--- OUTSIDE RECORDS SUMMARY | 2024-01-08 15:59 | External Medical Summary | Summary of Care ---
Author Name Unknown Organization [facility] Address [address] [place] [address] Phone [phone] Care Team Providers Care Tube Closing Machine Operator Name Role Phone Alicja Flores MD Primary Care Provider [phone] Reason for Visit * Reason Comments eRx-Medication Refill Encounter Details Date Type Department Care Team (Late st Contact Info) Description 08/09/2023 Refill [facility] [address] [place] [address] Alicja Flores MD [address] [place] [address] HTN, goal below 140/90; Encounter for long-term (current) use of other medications Allergies No known active allergiesdocumented as of this encounter (statuses as of 08/09/2023) Medications Medication Sig Dispensed Refills Start Date [...] 12/18/2022 metFORMIN HCl 1000 MG Oral Tablet (Glucophage)Jaylin cations:Type 2 diabetes mellitus with hemoglobin A1c goal of less than 8.0% (HCC) TAKE 1 TABLET BY MOUTH TWICE DAILY 180 Tablet 1 01/24/2023 Active Atorvastatin Calcium 40 MG Oral Tablet (Lipitor)Indicat ions:Dyslipidemi a, goal LDL below 100 TAKE 1 TABLET BY MOUTH ONCE DAILY 90 Tablet 1 03/20/2023 Active HRsoftToZones Ultra In Vitro Strip (Glucose Blood) use [...] MOUTH ONCE DAILY 45 Tablet 08/09/2023 Active Lisinopril-hydro CHLOROthiazide 10-12.5 MG Oral TabletIndication s:HTN, goal below 140/90 TAKE HALF TABLET BY MOUTH DAILY 45 Tablet 3 08/07/2022 4 Discontinued documented as of this encounter (statuses as of 08/09/2023) Active Problems Problem Noted Date Diagnosed Date Aortic valve stenosis 10/08/2022 Aortic valve sclerosis 04/29/2017 HTN, goal below 140/90 04/18/2015 Overview: Per HTN Protocol #27. Right thyroid nodule 01/29/2011 Vitamin D deficiency 09/24/2010 DYSLIPIDEMIA, GOAL LDL BELOW 100 01/27/2009 Overview: Per Lipid Taxonomy. History of tobacco use 06/15/2008 Overview: cigars E.D. 05/03/2008 documented as of this encounter (statuses as of 08/09/2023) Resolved Problems Problem Noted Date Diagnosed Date [...] as of this encounter (statuses as of 08/09/2023) Immunizations Name Administration Dates Next Due COVID-19 [...] encounter Miscellaneous Notes * Telephone Encounter - Hyedi Stark RPh - 08/09/2023 12:17 PM EDT Received message from [facility] regarding patient needing labs. Call Placed, Pt was agreeable to have labs drawn but would prefer to walk-in at their convenience. Patient will have labs done when he comes in for appointment 09/03. ThanksHeydi PharmD Clinical Pharmacist [facility] [phone] 08/09/2023, 12:17 PM * Telephone Encounter - Jovanna Keller RPh - 08/09/2023 12:00 PM EDT Signed Prescriptions: Disp Refills Lisinopril-hydroCHLOROthiazide 10-12.5 MG *45 Tab*0 Sig: TAKE 1/2 TABLET BY MOUTH ONCE DAILY Authorizing Provider: ALICJA FLORES Ordering User: JOVANNA KELLER * Telephone Encounter - Jovanna Keller RP - 08/09/2023 11:58 AM EDT Provided 30 days supply with 0 refill(s) until upcoming appointment. Per refill protocol patient should have routine on file within past year. Reviewed AMP report, Care Gaps/Health Maintenance, medications list, and for any routine labs typically ordered for this patient. Lab orders placed. Please contact patient to advise of labs ordered for blood draw AND URINE specimen (patient will have to be able to void to provide sample). Fasting is not required. Advise to obtain labs before requesting the next refill. Thanks, Jovanna Keller, PharmD Clinical Pharmacist [facility] [phone] 08/09/2023,11:58 AM documented in this encounter Plan of Treatment Upcoming Encounters Date Type Department Care Team (Late st Contact Info) Description 09/04/2023 9:40 AM EDT Office Visit [facility] [address] [place] [facility] [place] [address] Alicja Flores MD [address] [place] [place] [id number] 11/12/2023 7:15 AM EDT Cardiac Studies Cardiac Studies, [facility] [address] [facility] [place] [address] Scheduled Orders Name Type Priority Associated Diagnoses Orde r Schedule RENAL FUNCTION PANEL Lab Routine HTN, goal below 140/90 Expected: 08/09/2023 (Approximate), Expires: 08/08/2024 VITAMIN B12 Lab Routine Encounter for long-term (current) use of other medications Expected: 08/09/2023 (Approximate), Expires: 09/07/2024 ALBUMIN / CREATININE RATIO, URINE Lab Routine HTN, goal below 140/90 Encounter for long-term (current) use of other medications Expected: 08/09/2023 (Approximate), Expires: 08/08/2024 CBC WITH WBC DIFFERENTIAL Lab Routine Encounter for long-term (current) use of other medications Expected: 08/09/2023 (Approximate), Expires: 08/08/2024 LIPID PANEL WITH DIRECT LDL IF TG IS HIGH Lab Routine Encounter for long-term (current) use of other medications Expected: 08/09/2023 (Approximate), Expires: 08/08/2024 HEMOGLOBIN A1C Lab Routine Encounter for long-term (current) use of other medications Expected: 08/09/2023, Expires: 08/08/2024 Health Maintenance Due Date Last Done Comments [...] medications documented in this encounter Care Teams Tube Closing Machine Operator Relationship Specialty Start Date End Date Alicja Flores MD [address] [place] [address] PCP - General 06/09/1998 documented as of this encounter
--- OUTSIDE RECORDS SUMMARY | 2024-01-08 15:59 | External Medical Summary ---
Author Name Unknown Address Unknown Organization [id number][place] [place] [facility] [place] [address] Laboratory Report Ordering Provider Test Date Status KRISHNA NUGENT 09/05/2023 08:01:15 Final Observation Date Value Abnormality Reference (Units ) Status WBC, Total 09/05/2023 08:01:15 5.60 4.00-10.80 (K/uL) Final RBC 09/05/2023 08:01:15 4.70 4.50-5.25 (M/uL) Final Hemoglobin 09/05/2023 08:01:15 13.0 Below low normal 14.0-16.8 (g/dL) Final HCT 09/05/2023 08:01:15 41.1 40.0-48.4 (%) Final MCV 09/05/2023 08:01:15 87.4 82.0-99.5 (fL) Final MCH 09/05/2023 08:01:15 27.7 27.0-34.0 (pg) Final MCHC 09/05/2023 08:01:15 31.6 32.0-36.0 (g/dL) Final RDW 09/05/2023 08:01:15 14.0 11.5-15.5 (%) Final Platelets 09/05/2023 08:01:15 167 140-400 (K/uL) Final MPV 09/05/2023 08:01:15 10.2 6.6-11.1 (fL) Final Nucleated erythrocytes/100 leukocytes [Ratio] in Blood by Automated count 09/05/2023 08:01:15 0 <=0 (/100 WBCs) Final Performing Location [facility] [place] [address] [place] [address]
--- OUTSIDE RECORDS SUMMARY | 2024-01-08 15:59 | External Medical Summary ---
Author Name Unknown Address Unknown Organization [id number]:[facility] [place] [address] [facility] [place] [address] Laboratory Report Ordering Provider Test Date Status KRISHNA NUGENT 09/05/2023 08:01:15 Final Observation Date Value Abnormality Reference (Units ) Status Triglyceride 09/05/2023 08:01:15 108 <=174 ( mg/dL) Final Triglyceride Reference Range s (mg/dL):
<150 Acceptable
150-174 Borderline high
175-499 High
>=500 Very high Cholesterol 09/05/2023 08:01:15 111 <200 (mg /dL) Final Total Cholesterol Reference Ranges (mg/dL):
<200 Desirable
200-239 Borderline high
>=240 High HDL 09/05/2023 08:01:15 35 Below low normal >39 (mg/dL) Final HDL Cholesterol Reference Ra nges (mg/dL):
>=60 High (Desirable)
<50 Low (Undesirable) For Females
<40 Low (Undesirable) For Males NON-HDL CHOLESTEROL 09/05/2023 08:01:15 76 <=159 (mg/dL) Final Non-HDL Cholesterol Referenc e Range (mg/dL):
<100 Target level for high risk ASCVD patient
<130 Optimal for general population
130-159 Near optimal for general population
160-189 Borderline High
190-219 High
>=220 Very High LDL, (calculated) 09/05/2023 08:01:15 54 <= 129 (mg/dL) Final LDL Cholesterol Reference Ra nges (mg/dL):
<70 Target level for high risk ASCVD patient
<100 Optimal for general population
100-129 Near optimal for general population
130-159 Borderline high
160-189 High
>=190 Very high Performing Location [facility] [place] - [address] [facility] [address]
--- NOTE | 2024-01-08 16:01 | Discharge Summary ---
Date of Service January 08, 2024 Admission HPI Per Admitting Provider 83-year-old male with past medical history significant for dyslipidemia, right thyroid nodule, hypertension, diabetes, severe aortic stenosis, systolic CHF, vitamin D deficiency, history of significant bleeding requiring transfusion of five units of blood in 2019 leading to cessation of daily aspirin therapy, history of tobacco use was brought in because of V-fib cardiac arrest. Currently status post intubation. and family in the room. As per patient was having diarrhea for last 1 week. Today complained of some heartburn and took Carly-Voca. He also complained of back pain. He walks without support. Probably felt nauseous as per . Went to his hockey game with his grandson. Seemed he was doing okay initially. But then while talking mid sentence slumped over. EMS was called. As per grandson took about 5 minutes for EMS arrival and started CPR. After 2 rounds of CPR, received 200 J shock with cardiac conversion to sinus rhythm. Rhythm during the episode seems to be V-fib. Brought to the ER. In the ER patient was having agonal breathing and unresponsive. S/p intubation and started on propofol drip. Patient became hypotensive and started on pressors. Patient has a history of intraventricular conduction delay but recently found to have left bundle branch block which resulted decrease in the left ventricular function from 50% to 40% as per cardiology notes. Recent echo was done in November 12, 2023. Past medical history. As mentioned above Past surgical history. Colonoscopy. EGD. Orchiopexy inguinal approach . Social history. . Quit smoking 2014. Alcohol occasional beer. No drug use. Family history. Father had bladder cancer. Diabetes. Sister has diabetes. Mother had heart disorder. Admission Exam Per Admitting Provider General- s/p intubated and sedated. Head- atraumatic Eyes- Pupils pinpoint and non reactive to light Neck- no JVD. Lungs- clear to auscultation no wheezing or crackles Heart- regular rhythm; no murmur, no gallop. Abdomen- normal bowel sounds, soft, no distension. Extremities- no pretibial edema, no erythema seen Neuro- s/p intubation and sedation Principal Diagnosis Cardiac arrest Ventricular fibrillation Severe aortic stenosis Possible ischemic cardiomyopathy Cannot rule out coronary artery disease S/P extubation H/O LBBB Discharge Data Allergies Allergy/AdvReac Type Severity Reaction Status Date / Time No Known Allergies Allergy Verified 01/07/24 19:19 Consultations 01/07/24 19:43 ED Decision to Admit Stat 01/07/24 21:43 Consult Strike Operations Officer Routine 01/08/24 08:00 Consult Cardiology Routine 01/08/24 15:20 Burn CD for patient Stat Procedures Performed Laboratory Results WBC 11.76 K/ul (4.8-10.8) H 01/08/24 05:28 RBC 4.72 M/uL (4.70-6.10) 01/08/24 05:28 Hgb 12.8 g/dl (14.0-18.0) L 01/08/24 05:28 POC Hgb 12.9 g/dl (14.0-18.0) L 01/07/24 23:07 Hct 39.3 % (42.0-52.0) L 01/08/24 05:28 POC Hct 38 % (42-52) L 01/07/24 23:07 MCV 83.3 fL (80.0-100.0) 01/08/24 05:28 MCH 27.1 pg (25.0-34.0) 01/08/24 05:28 MCHC 32.6 g/dL (32.0-36.0) 01/08/24 05:28 RDW Std Deviation 42.6 fL (36.4-46.3) 01/08/24 05:28 RDW Coeff of Erendira 13.9 % (11.5-14.5) 01/08/24 05:28 Plt Count 202 K/uL (130-400) 01/08/24 05:28 MPV 9.5 fL (9.4-12.4) 01/08/24 05:28 Immature Gran % (Auto) 0.6 % 01/08/24 05:28 Neut % (Auto) 78.2 % 01/08/24 05:28 Lymph % (Auto) 13.8 % 01/08/24 05:28 [place] % (Auto) 7.3 % 01/08/24 05:28 Eos % (Auto) 0.0 % 01/08/24 05:28 Baso % (Auto) 0.1 % 01/08/24 05:28 Neut # (Auto) 9.20 K/uL (1.40-6.50) H 01/08/24 05:28 Lymph # (Auto) 1.62 K/uL (1.20-3.40) 01/08/24 05:28 [place] # (Auto) 0.86 K/uL (0.11-0.59) H 01/08/24 05:28 Eos # (Auto) 0.00 K/uL (0.00-0.50) 01/08/24 05:28 Baso # (Auto) 0.01 K/uL (0.00-0.20) 01/08/24 05:28 Immature Gran # (Auto) 0.07 K/uL (0.01-0.20) 01/08/24 05:28 PT 10.8 Seconds (9.0-12.0) 01/07/24 18:49 INR 1.0 (0.9-1.1) 01/07/24 18:49 APTT 24 Seconds (21-31) 01/07/24 18:49 PTT Ratio 0.9 01/07/24 18:49 Heparin Anti-Xa, Unfract 0.34 IU/ml (0.3-0.7) 01/08/24 14:36 Specimen Type Arterial 01/07/24 23:07 Sample Site Art Line 01/07/24 23:07 POC pH 7.38 (7.35-7.45) 01/07/24 23:07 POC pCO2 43 mmHg (35-46) 01/07/24 23:07 POC pO2 141 mmHg (80-95) H 01/07/24 23:07 POC HCO3 25 warren/L (19-24) H 01/07/24 23:07 POC Total CO2 26 mmol/L (24-31) 01/07/24 23:07 POC Base Excess 0.0 warren/L (-9-1.8) 01/07/24 23:07 O2 Sat Pulse Oximetry 100 01/07/24 23:07 ABG pH (Temp Correct) 7.382 (7.35-7.45) 01/07/24 23:07 ABG pCO2 (Temp Corrct 42 mmHg (35-46) 01/07/24 23:07 POC ABG pO2 at Pt Temp 140 01/07/24 23:07 POC ABG O2 Sat 99.0 % (90-95) H 01/07/24 23:07 Cyril Test NA 01/07/24 23:07 VBG pH 7.32 (7.36-7.41) L 01/07/24 18:49 VBG pCO2 48 mmHg (38-50) 01/07/24 18:49 VBG pO2 46 mmHg 01/07/24 18:49 VBG HCO3 25 mmol/L 01/07/24 18:49 VBG O2 Saturation 75.5 % 01/07/24 18:49 VBG Base Excess -1.8 mEq/L 01/07/24 18:49 O2 Delivery Device Ventilator 01/07/24 23:07 Vent Mode AC 01/07/24 23:07 POC FiO2 40 % 01/07/24 23:07 End Tidal CO2 33 01/07/24 23:07 POC Sodium 140 mmol/L (135-144) 01/07/24 23:07 Sodium 137 mmol/L (136-145) 01/08/24 05:28 POC Potassium 4.3 mmol/L (3.3-5.0) 01/07/24 23:07 Potassium 4.3 mmol/L (3.5-5.1) 01/08/24 05:28 POC Chloride 101 mmol/L (101-112) 01/07/24 18:27 Chloride 106 mmol/L (98-107) 01/08/24 05:28 Carbon Dioxide 24 mmol/L (21-32) 01/08/24 05:28 POC Total CO2 22 mmol/L (24-31) L 01/07/24 18:27 Anion Gap 7 (3-11) 01/08/24 05:28 POC Anion Gap 23.0 mmol/L (16-25) 01/07/24 18:27 POC BUN 19 mg/dl (7-18) H 01/07/24 18:27 BUN 16 mg/dl (6-23) 01/08/24 05:28 Creatinine 0.66 mg/dl (0.6-1.4) 01/08/24 05:28 POC Creatinine 1.0 mg/dl (0.6-1.3) 01/07/24 18:27 Est Cr Clr Drug Dosing 86.0 ml/min 01/08/24 05:28 eGFR 92.49 01/08/24 05:28 BUN/Creatinine Ratio 24.2 (10-20) H 01/08/24 05:28 Glucose 138 mg/dl (70-99(Fasting)) H 01/08/24 05:28 POC Glucose 149 mg/dl (70-99) H 01/08/24 11:28 POC Glucose (other) 197 mg/dl (70-99) H 01/07/24 18:27 Estimat Average Glucose 154 mg/dl 01/08/24 05:28 Hemoglobin A1c 7.0 % (4.5-5.6) H 01/08/24 05:28 Lactate 2.4 mmol/L (0.4-2.0) H* 01/07/24 20:44 Calcium 8.8 mg/dl (8.6-10.3) 01/08/24 05:28 POC Ioniz Calcium Windy 1.14 mmol/l (1.12-1.32) 01/07/24 18:27 Phosphorus 3.8 mg/dl (2.5-4.9) 01/08/24 05:28 Magnesium 2.5 mg/dl (1.7-2.4) H 01/08/24 05:28 Total Bilirubin 0.4 mg/dl (0.2-1.0) 01/08/24 05:28 Direct Bilirubin 0.0 mg/dl (0-0.2) 01/08/24 05:28 AST 32 U/L (13-39) 01/08/24 05:28 ALT 38 U/L (7-52) 01/08/24 05:28 Alkaline Phosphatase 55 U/L (34-104) 01/08/24 05:28 Total Creatine Kinase 50 U/L (30-223) 01/07/24 18:23 Troponin I High Sens 362.8 pg/ml (0-20) H* D 01/08/24 11:03 B-Natriuretic Peptide 186 pg/ml (0-100) H 01/07/24 20:45 Total Protein 6.5 gm/dl (6.0-8.3) 01/08/24 05:28 Albumin 4.1 gm/dl (3.4-5.0) 01/08/24 05:28 Globulin 2.4 gm/dl (2.5-4.0) L 01/07/24 18:23 Albumin/Globulin Ratio 1.8 (0.9-2) 01/07/24 18:23 Lipase 61 U/L (11-82) 01/07/24 18:23 TSH 8.763 uIu/ml (0.300-4.500) H 01/07/24 18: Free T4 0.82 ng/dl (0.61-1.60) 01/07/24 18:23 Urine Color Yellow 01/07/24 21:02 Urine Appearance Clear (Clear) 01/07/24 21:02 Urine pH 5.5 (4.5-7.5) 01/07/24 21:02 Ur Specific [place] 1.040 (1.000-1.030) H 01/07/24 21:02 Urine Protein 1+ (Negative) H 01/07/24 21:02 Urine Glucose (UA) 2+ (Negative) H 01/07/24 21: Urine Ketones Trace (Negative) H 01/07/24 21: Urine Blood 1+ (Negative) H 01/07/24 21:02 Urine Nitrite Negative (Negative) 01/07/24 21: Urine Bilirubin Negative (Negative) 01/07/24 21:02 Urine Urobilinogen Negative (Negative) 01/07/24 21:02 Ur Leukocyte Esterase Negative (Negative) 01/07/24 21:02 Urine WBC (Auto) 0-5 /hpf (0-5) 01/07/24 21:02 Urine RBC (Auto) 11-20 /hpf (0-2) H 01/07/24 21:02 U Hyaline Cast (Auto) 0-2 /lpf (0-2) 01/07/24 21:02 U Epithel Cells (Auto) 0-2 /hpf (0-2) 01/07/24 21:02 Urine Bacteria (Auto) None Seen (None Seen) 01/07/24 21:02 Nasal Screen MRSA (PCR) Negative (Negative) 01/07/24 21:47 Impressions Chest CTA 01/07/24 18:28 Exam(s): CTA CHEST IV Amt: 119 ml opti 320 EXAM: CT Angiography Chest With Intravenous Contrast CLINICAL HISTORY: Reason for exam: PE, carrdiac arrest. TECHNIQUE: Axial computed tomographic angiography images of the chest with intravenous contrast. CTDI is 24.7 mGy and DLP is 834.59 mGy-cm. Automated exposure control was utilized for the study. A dose lowering technique was utilized adhering to the principles of ALARA. MIP reconstructed images were created and reviewed. COMPARISON: None FINDINGS: Pulmonary arteries: Unremarkable. No pulmonary embolus identified. Aorta: Atherosclerotic changes in the aorta. No aortic aneurysm. Lungs: Dependent and lower lung atelectasis. Interlobular septal thickening, suggesting fluid overload. Nonspecific nodules bilaterally, measuring up to 7 mm. This could be related to fluid overload/edema versus nonspecific nodules. Follow-up exam could be performed after appropriate treatment or 3 to 6 months if clinically indicated. Pleural space: Unremarkable. No significant effusion. No pneumothorax. Heart: Mild cardiomegaly. Coronary artery. Angiographic calcifications. No significant pericardial effusion. No evidence of RV dysfunction. Mediastinum: Nonspecific shotty mediastinal and hilar lymph nodes. Bones/joints: Degenerative changes of the spine. No acute fracture. No dislocation. Soft tissues: Unremarkable. Lymph nodes: See above. Gallbladder and bile ducts: Cholelithiasis partially seen. Spleen: Small splenule. Tubes, lines and devices: Endotracheal tube terminates in the mid thoracic trachea. Enteric tube courses into the stomach. IMPRESSION: 1. No pulmonary embolus identified. 2. Interlobular septal thickening, suggesting fluid overload. 3. Nonspecific nodules bilaterally, measuring up to 7 mm. This could be related to fluid overload/edema versus nonspecific nodules. Follow-up exam could be performed after appropriate treatment or 3 to 6 months if clinically indicated. 4. Atherosclerotic changes in the aorta. No aortic aneurysm. Electronically signed by: Christine Hunter M.D. 01/07/24 19:[address] 01/07/24 18:28 Exam(s): CT HEAD Without Contrast EXAM: CT Head Without Intravenous Contrast CLINICAL HISTORY: Reason for exam: ams, post rosc. TECHNIQUE: Axial computed tomography images of the head/brain without intravenous contrast. CTDI is 36.31 mGy and DLP is 624.41 mGy-cm. Automated exposure control was utilized for the study. A dose lowering technique was utilized adhering to the principles of ALARA. COMPARISON: None FINDINGS: Brain: No acute infarct or hemorrhage identified. No extra-axial fluid collection. No mass effect or midline shift. Scattered areas of hypoattenuation in the supratentorial white matter likely represent chronic small vessel ischemic changes. Ventricles and sulci: Prominence of the ventricles and sulci is likely secondary to cerebral volume loss. Bones: Normal. No bony lesion or acute fracture. Subcutaneous tissues: Normal. Sinuses: Mild mucosal thickening in the left maxillary sinus and ethmoid air cells. Mastoid air cells: Normal. Orbits: Bilateral lens implants. Other: Atherosclerotic calcifications in the intracranial vasculature. IMPRESSION: 1. No acute intracranial abnormality. Further evaluation could be performed with MRI as clinically indicated. 2. Mild chronic small vessel ischemic changes and cerebral volume loss. Electronically signed by: Christine Hunter M.D. 01/07/24 19:29 PM Abdomen/Pelvis CT 01/07/24 18:49 Exam(s): CT ABDOMEN + PELVIS With Contrast IV Amt: 119 ml opti 320 EXAM: CT Abdomen and Pelvis With Intravenous Contrast CLINICAL HISTORY: Reason for exam: diarrhea, post arrest. TECHNIQUE: Axial computed tomography images of the abdomen and pelvis with intravenous contrast. CTDI is 26.75 mGy and DLP is 1452.22 mGy-cm. Automated exposure control was utilized for the study. A dose lowering technique was utilized adhering to the principles of ALARA. CONTRAST: Patient received 119 ml opti 320 of IV contrast COMPARISON: CT abdomen/pelvis on 12/03/2018 FINDINGS: Lung bases: Please see accompanying CT chest for further details. ABDOMEN: Liver: Unremarkable. No mass. Gallbladder and bile ducts: Cholelithiasis. No ductal dilation. Pancreas: Unremarkable. No mass. No ductal dilation. Spleen: Small splenule. Adrenals: Unremarkable. No mass. Kidneys and ureters: Small hypodensities in the kidneys are too small to definitively characterize. No hydronephrosis or obstructing ureteral stone. Stomach and bowel: Diverticulosis without evidence of diverticulitis. No small bowel obstruction. PELVIS: Appendix: Normal appendix. Bladder: Celeste catheter in an underdistended bladder. Thickened, trabeculated bladder with gas foci in the bladder. This could be secondary to catheterization and underdistention. Please correlate with urinalysis if concerned for cystitis. Reproductive: Unremarkable as visualized. ABDOMEN and PELVIS: Intraperitoneal space: Unremarkable. No free air. No significant fluid collection. Bones/joints: Degenerative changes of the spine. Probable small bone islands in the pelvic bones. No acute fracture. No dislocation. Soft tissues: Small fat-containing umbilical hernia. Vasculature: Atherosclerotic changes of the vasculature. No abdominal aortic aneurysm or dissection. Mild ectasia of the abdominal aorta. Lymph nodes: Unremarkable. No enlarged lymph nodes. Tubes, lines and devices: Enteric tube terminates in the gastric body. IMPRESSION: 1. Celeste catheter in an underdistended bladder. Thickened, trabeculated bladder with gas foci in the bladder. This could be secondary to catheterization and underdistention. Please correlate with urinalysis if concerned for cystitis. 2. Cholelithiasis. Electronically signed by: Christine Hunter M.D. 01/07/24 19:46 PM Chest X-Ray 01/08/24 06:00 EXAM: XR chest 1V portable CLINICAL HISTORY: eval lines/tubes/lung rosenthal tgb/jtf TECHNIQUE: An X-ray image of the chest is obtained in AP projection. COMPARISON: 01/07/2024. FINDINGS: Lines and tubes: ETT was noted with a tip 1.4cm from the irena. NG tube was noted with a tip in the stomach Pulmonary Parenchyma: No evidence of consolidation, collapse, or focal opacities. Bilateral perihilar increased vascular marking. No evidence of pleural effusion or pleural thickening. Heart and Mediastinum: Cardiomegaly is noted. No mediastinal widening or masses. No hilar or mediastinal lymphadenopathy. Bony Thorax: Bony thorax appears intact without fractures or deformities. Soft Tissues: Soft tissues overlying the chest wall are unremarkable. IMPRESSION: 1. ETT was noted with a tip 1.4cm from the irena, other than that no interval changes in comparison with the x-ray on 01/07/2024. 2. Bilateral perihilar increased vascular marking could be due to edema or vascular congestion. 3. Cardiomegaly. Electronically signed by Xavier Rios 01-08-2024 07:23 AM Ordered Studies 01/07/24 18:28 CT angio chest PE protocol Stat CT head/brain wo con Stat 01/07/24 18:49 CT abd pelvis IV con only Stat Hospital Course (1) Cardiac arrest: Patient is an 83-year-old male with past medical history significant for dyslipidemia, right thyroid nodule, hypertension, diabetes, severe aortic stenosis, systolic CHF, vitamin D deficiency, history of significant bleeding requiring transfusion of five units of blood in 2019 leading to cessation of daily aspirin therapy, history of tobacco use was brought in because of V-fib cardiac arrest. Currently status post intubation. and family in the room. As per patient was having diarrhea for last 1 week. Today complained of some heartburn and took Carly-Voca. He also complained of back pain. He walks without support. Probably felt nauseous as per . Went to his hockey game with his grandson. Seemed he was doing okay initially. But then while talking mid sentence slumped over. EMS was called. As per grandson took about 5 minutes for EMS arrival and started CPR. After 2 rounds of CPR, received 200 J shock with cardiac conversion to sinus rhythm. Rhythm during the episode see ms to be V-fib. Brought to the ER. In the ER patient was having agonal breathing and unresponsive. S/p intubation and started on propofol drip. Patient became hypotensive and started on pressors. Patient has a history of intraventricular conduction delay but recently found to have left bundle branch block which resulted decrease in the left ventricular function from 50% to 40% as per cardiology notes. Recent echo was done in November 12, 2023. S/p cardiac arrest V-fib arrest H/O aortic stenosis H/O LBBB Possible ischemic cardiomyopathy Vs valvular heart disease Received 2 rounds of CPR and 200 J shock. Agonal breathing and unresponsive and was intubated in ED Hypotension requiring pressors --ECHO: Sinus bradycardia with left bundle branch block configuration. Left ventricle is normal in size. Moderate concentric LVH. Septal motion is consistent with conduction abnormality. Severe global hypokinesis of left ventricle. EF 15 to 20%. The aortic valve is severely calcified. Valve leaflet mobility is restricted. Low-flow aortic stenosis suspected of moderate to severe degree. Mild mitral regurgitation. Trace tricuspid regurgitation. --CT head:No acute intracranial abnormality. Further evaluation could be performed with MRI as clinically indicated. Mild chronic small vessel ischemic changes and cerebral volume loss. --Wean off of pressors as able --Continue aspirin, statin Appreciate critical care, cardiology input Will need coronary angiography eventually Monitor volume status Extubated on 01/08/2024 Given need for high risk cardiac catheterization and TAVR evaluation, cardiology recommends patient to be transferred to [facility] for further management Patient is accepted by Dr. Bradly Miguel for further evaluation at [facility] Family understands and agrees with above management Lactic acidosis Likely due to above in setting of chronic metformin use Lactic acid levels improved No clear source of infection Monitor Hematuria Likely due to traumatic catheter Monitor CBC Consider urology evaluation if needed Severe aortic stenosis Echo as above Monitor for volume overload History of GI bleed bleeding requiring 5 units of PRBCs In 2019 leading to cessation of aspirin Currently started on aspirin and low dose IV heparin Monitor CBC Hyperlipidemia On statin DM II Continue insulin while hospitalized Monitor BGs Hypertension Hold lisinopril hydrochlorothiazide Monitor blood pressure DVT Px: IV heparin CODE STATUS Full code Disposition [place] Total Time Total Time Spent Total Time Spent (In Minutes): 58 minutes Discharge Plan Discharge Items Patient Disposition: Transfer Acute Care Hospital Reason For Visit: CARDIAC ARREST Discharge Diagnosis: Cardiac arrest Ventricular fibrillation Severe aortic stenosis Possible ischemic cardiomyopathy Cannot rule out coronary artery disease S/P extubation H/O LBBB Activity: Per Instructions section Exercise/Sports: Wait until after follow-up appointment Non-emergency contact: Primary Care Provider and Scientific Writer Call non-emergency contact if: you have any medication questions, your symptoms worsen, your pain is concerning for you and you have a fever Follow-up/Referrals: Elvis Flores MD [Primary Care Provider] - Diet: Heart Healthy Patricia Attending Provider Instructions: Follow-up with Dr. Bradly Miguel at [facility] for further management Seek immediate medical attention if your symptoms reoccur or worsen Please take all medications as instructed on discharge list below. Please call if you have any questions or problems. You can reach a [facility] hospitalist on duty at [facility] 24 hours a day by calling [phone] Patricia Emergency Medicine Physician Provider Instructions: Date of Service: January 08, 2024 Current Inpatient Medications Acetaminophen (Acetaminophen 500 Mg Tab) 500 mg PO Q4H PRN PRN Reason: Fever Stop: 02/07/24 09:24 Last Admin: 01/08/24 09:52 Dose: 500 mg Aspirin (Aspirin 81 Mg Chew) 81 mg PO QAM [facility] Stop: 02/08/24 08:59 Atorvastatin Calcium (Atorvastatin 40 Mg Tab) 40 mg PO QAM [facility] Stop: 02/07/24 08:59 Last Admin: 01/08/24 08:50 Dose: 40 mg Dextrose (Dextrose 50% 50 Ml Syringe) 25 - 50 ml IV UD PRN; Protocol PRN Reason: Hypoglycemia Protocol Stop: 02/06/24 21:42 Fentanyl Citrate (Fentanyl Bolus From Bag) 50 mcg IV Q60M PRN PRN Reason: Pain or Agitation Stop: 01/21/24 22:05 Glucagon (Glucagon For Inj 1 Mg Vial) 1 mg SQ UD PRN; Protocol PRN Reason: Hypoglycemia Protocol Stop: 02/06/24 21:42 Glucose (Glucose 40% Gel 15 Gm Tube) 15 - 30 gm PO UD PRN; Protocol PRN Reason: Hypoglycemia Protocol Stop: 02/06/24 21:42 Glucose (Glucose 10 Tab/Tube) 4 - 8 tab PO UD PRN; Protocol PRN Reason: Hypoglycemia Protocol Stop: 02/06/24 21:42 Propofol (Diprivan) 1,000 mg in 100 mls @ 0 mls/hr IV .Q0M ALIX; Protocol Stop: 01/10/24 18:29 Last Admin: 01/08/24 15:02 Dose: Not Given Phenylephrine HCl (Phenylephrine/Nss) 25 mg in 250 mls @ 25.8 mls/hr IV .[id number] ALIX; Protocol Stop: 02/06/24 20:19 Last Titration: 01/08/24 10:50 Dose: 0 mcg/kg/min, 0 mls/hr Heparin Sodium/Dextrose (Heparin Sodium/Dextrose) 25,000 units in 500 mls @ 21 mls/hr IV .[id number] ALIX; Protocol Stop: 02/06/24 21:42 Last Titration: 01/08/24 08:10 Dose: 1,050 units/hr, 21 mls/hr Fentanyl Citrate (Fentanyl Citrate) 2,500 mcg in 250 mls @ 0 mls/hr IV .Q0M ALIX; Protocol Stop: 01/21/24 22:14 Last Titration: 01/08/24 12:25 Dose: Infused Pantoprazole Sodium (Protonix) 40 mg in 10 mls @ 5 mls/min IV BID [facility] Stop: 02/06/24 22:14 Last Admin: 01/08/24 08:51 Dose: 5 mls/min Insulin Aspart (Insulin Aspart Per Unit Charge) 0 units SC Q6 [facility] Stop: 02/06/24 00:00 Last Admin: 01/08/24 12:15 Dose: Not Given Miscellaneous (Carbohydrates For Hypoglycemia ) 15 - 30 gm PO UD PRN PRN Reason: Hypoglycemia Protocol Stop: 02/06/24 21:42 Miscellaneous (Icu Electrolyte Replacement Protocol) 1 each N/A BID@18 [facility]; Protocol Stop: 01/15/24 17:59 Propofol (Propofol Bolus From Bag) 20 mg IV Q5M PRN PRN Reason: Sedation Stop: 01/10/24 18:29 Last Admin: 01/07/24 19:53 Dose: 20 mg Pending Studies at Discharge: No Stand-Alone Forms: My [facility] Skilled Items Patient informed of condition?: Yes DNR: No Discharge Level of Care: Other Communicable Disease: No Discharge Prognosis: Stable Lines: Peripheral IV Urinary Catheter: No Medications and DC Order Prescriptions: New aspirin [Children's Aspirin] 81 mg Tablet,Chewable 81 mg PO QAM Qty: 0 0RF Continued atorvastatin 40 mg Tablet 40 mg PO QAM lisinopril-hydrochlorothiazide 10-12.5 mg Tablet 0.5 tab PO QAM Rx Instructions: 1/2 TABLET DOSE cholecalciferol (vitamin D3) 1,000 unit Capsule 1,000 unit PO QAM Jardiance 25 mg Tablet 25 mg PO QAM cyanocobalamin (vitamin B-12) 100 mcg Tablet 100 mcg PO DAILY glipizide 5 mg Tablet Extended Release 24hr 5 mg PO QAM metformin 1,000 mg Tablet 1,000 mg PO BID ascorbic acid (vitamin C) [Vitamin C] 125 mg Tablet,Chewable 125 mg PO DAILY Discharge Orders: Discharge Order (Routine); Ordered 01/08/24 Ordered By: Diallo Lewis/Other Patient Handouts: Managing Type 2 Diabetes Admission Data Admit Date/Time: 01/07/24 21:13 Attending Provider: Dilalo Hudson Admit Provider: Richar Sellers Primary Care Provider: Elvis Flores Other Providers: Richar Sellers; Lolita Vega George
--- NOTE | 2024-01-08 16:56 | Electrocardiogram Report ---
Test Reason : Blood Pressure : */* mmHG Vent. Rate : 101 BPM Atrial Rate : 101 BPM P-R Int : 144 ms QRS Dur : 188 ms QT Int : 412 ms P-R-T Axes : * -57 111 degrees QTcB Int : 534 ms Sinus tachycardia Left axis deviation Left bundle branch block Abnormal ECG When compared with ECG of 04-Dec-2018 07:24, Left bundle branch block has replaced Incomplete left bundle block Confirmed by Margarito Mike ([id number]) on 01/08/2024 4:56:38 PM Referred By: REFERRED SELF Confirmed By: Margarito Mike
--- NOTE | 2024-01-08 16:57 | Electrocardiogram Report ---
Test Reason : Blood Pressure : */* mmHG Vent. Rate : 126 BPM Atrial Rate : 126 BPM P-R Int : 166 ms QRS Dur : 170 ms QT Int : 330 ms P-R-T Axes : -17 -53 127 degrees QTcB Int : 477 ms Sinus tachycardia with Premature ventricular complexes Left axis deviation Left bundle branch block Abnormal ECG Confirmed by Magrarito Mike ([id number]) on 01/08/2024 4:57:07 PM Referred By: REFERRED SELF Confirmed By: Margarito Mike
--- NOTE | 2024-01-08 16:57 | Electrocardiogram Report ---
Test Reason : Blood Pressure : */* mmHG Vent. Rate : 58 BPM Atrial Rate : 58 BPM P-R Int : 212 ms QRS Dur : 172 ms QT Int : 514 ms P-R-T Axes : 47 -60 144 degrees QTcB Int : 504 ms Sinus bradycardia with 1st degree A-V block with frequent Premature ventricular complexes Left axis deviation Left bundle branch block Abnormal ECG Confirmed by Margarito Mike ([id number]) on 01/08/2024 4:57:23 PM Referred By: REFERRED SELF Confirmed By: Margarito Mike
[2024-01-08] MEDS: ICU ELECTROLYTE REPLACEMENT PROTOCOL SCH (17:37)
[2024-01-08 20:23] VITALS: TEMP 98.4
[2024-01-08 21:16] VITALS: BP 121/64; PULSE 73
[2024-01-08 21:17] VITALS: RESP 17; O2SAT 94
[2024-01-09] MEDS ORDERED: ASPIRIN 81 MG CHEW PO SCH (09:00)
== END 2024-01-08 21:24 | disposition short-term general hospital (02) | DRG 308 ==
LOC: ED 18:16 → 1E 21:13

== ENCOUNTER 2024-01-17 08:22 | Inpatient (IN) ==
[2024-01-17] MEDS: OPTIRAY 320 125ml IV ONE (08:51)
[2024-01-17 08:55] LABS: iSTAT Creatinine 1.7 mg/dl (0.6-1.3); iSTAT Hemoglobin 8.8 g/dl (14.0-18.0); iSTAT Ionized Calcium 0.98 mmol/l (1.12-1.32); iSTAT Potassium 4.9 mmol/L (3.3-5.0)
--- NOTE | 2024-01-17 09:01 | XRay Report ---
XR chest 1V portable HISTORY: 83 years-old Male Chest pain, nonspecific COMPARISON: 01/08/2024 TECHNIQUE: AP view of the chest FINDINGS: Cardiac silhouette is enlarged. No pneumothorax. Trace pleural effusions. Pulmonary vascular congesti on. Numerous leads project over the chest. Bones appear grossly intact. IMPRESSION: 1. Cardiomegaly with pulmonary vascular congestion. 2. Trace pleural effusions. ACT 112: Negative or not required by law. The above report was generated using voice recognition software. It may contain grammatical, syntax o r spelling errors. Electronically signed by: Murali Echeverria M.D. 01/17/2024 9:00 AM
--- NOTE | 2024-01-17 09:06 | CT Scan Report ---
CT OF THE HEAD WITHOUT CONTRAST CLINICAL HISTORY: Altered mental status. COMPARISON STUDY: Head CT January 07, 2024. TECHNIQUE: Helical axial images of the head were obtained without IV contrast. Automated exposure con trol was utilized for the study. A dose lowering technique was utilized adhering to the principles o f ALARA. FINDINGS: No acute intracranial hemorrhage, midline shift or mass effect is present. The ventricular system is stable. White matter hypodensities are unchanged and favor small vessel disease. The basal cisterns are patent. No extra-axial collections are present. There are no findings to suggest acute d ural sinus thrombosis or acute territorial infarct. No significant calvarial abnormalities are presen t. Visualized portions of the sinuses and mastoid air cells are clear. IMPRESSION: No acute intracranial findings. No change in appearance of the brain. ACT 112: Negative or not required by law. Electronically signed by: Miko Carolina M.D. 01/17/2024 9:04 AM
[2024-01-17 09:16] LABS: Basophils # (auto) 0.03 K/uL (0.00-0.20); Basophils % (auto) 0.2 %; Hematocrit (blood only) 26.6 % (42.0-52.0); Hemoglobin 8.2 g/dl (14.0-18.0); Immature Granulocytes # (auto) 0.22 K/uL (0.01-0.20); Immature Granulocytes % (auto) 1.2 %; Lymphocytes # (auto) 0.39 K/uL (1.20-3.40); Lymphocytes % (auto) 2.1 %; Mean Corpuscular Hemoglobin 27.8 pg (25.0-34.0); Mean Corpuscular Hgb Conc 30.8 g/dL (32.0-36.0); Mean Corpuscular Volume 90.2 fL (80.0-100.0); Mean Platelet Volume 9.8 fL (9.4-12.4); Monocytes # (auto) 1.62 K/uL (0.11-0.59); Monocytes % (auto) 8.8 %; Neutrophils # (auto) 16.11 K/uL (1.40-6.50); Neutrophils % (auto) 87.7 %; Platelet Count 249 K/uL (130-400); RDW Coefficient of Variation 15.1 % (11.5-14.5); RDW Standard Deviation 47.3 fL (36.4-46.3); Red Blood Count 2.95 M/uL (4.70-6.10); White Blood Count 18.37 K/ul (4.8-10.8)
--- NOTE | 2024-01-17 09:21 | CT Scan Report ---
CT angio chest PE protocol HISTORY: 83 years-old Male with hypotension, s/p cath. Acute hypotension with unresponsiveness stat us post recent catheterization procedure TECHNIQUE: Multiple CTA images of the chest were obtained after the intravenous administration of 120 ml Optiray. Coronal and sagittal MIPS were obtained from the axial data set and were submitted for review. All measurements were obtained according to NASCET criteria. A dose lowering technique was u tilized adhering to the principles of ALARA. COMPARISON: CT abdomen and pelvis of same day, CTA chest 01/07/2024 FINDINGS: CTA: Moderate cardiomegaly. There is no pericardial effusion. Extensive coronary artery calcifications. At herosclerosis of the thoracic aorta without aneurysm or dissection. Pulmonary artery is dilated up to 3.3 cm suggestive of pulmonary arterial hypertension. No pulmonary emboli identified. CT CHEST: No dominant thyroid nodule. Borderline enlarged mediastinal lymph nodes measuring up to 10 mm of slig htly increased in size from prior. No pneumothorax, pleural effusion or lobar airspace consolidation. No overt pulmonary edema. Mild dependent subsegmental bibasilar atelectasis. Central airways are pat ent. Linear branching lucencies are noted within the left hepatic lobe on image [address] abdomen an d pelvis is dictated separately. Mild distal esophageal wall thickening. Unchanged nondisplaced bilat eral anterior rib fractures compared to the prior study. IMPRESSION: 1. Cardiomegaly with evidence of pulmonary arterial hypertension and extensive coronary artery calcif ications. 2. No pulmonary emboli. 3. No pleural effusion or airspace consolidation typical for pneumonia. 4. Mild nonspecific borderline enlarged mediastinal lymph nodes. 5. Please refer to the same day CT abdomen and pelvis study for additional findings. ACT 112: Negative or not required by law. The above report was generated using voice recognition software. It may contain grammatical, syntax o r spelling errors. Electronically signed by: Murali Echeverria M.D. 01/17/2024 9:19 AM
--- NOTE | 2024-01-17 09:32 | Emergency Department Note ---
Impression & Plan Sepsis, Acute hypotension, Anemia, Generalized weakness, Emphysematous cystitis ED Provider Note ED Provider Note NAME: GER MUNOZ AGE:83 SEX: Male : 1940 ARRIVES VIA: EMS INFORMANT: Patient, EMS ED PROVIDER(s): Georgia Mooney DO CHIEF COMPLAINT: Weakness, hypotension, tachycardia HPI: This is an 83-year-old male presents emergency department via EMS due to increasing weakness. states he just got home from [facility] in [place] last night. Patient was initially sent there for cardiac catheterization and evaluation for possible TAVR after he sustained an [id number] cardiac arrest locally and was initially admitted at our facility. Patient discharged home with a LifeVest as well as an indwelling Celeste catheter. states he seemed in good spirits last night, however she was up with him several times as he felt the urge to urinate however did not appear to be able to urinate through his Celeste catheter and was having leakage of urine out around the catheter on the urethral meatus. She states this morning he seemed increasingly weak and she had to help him get up off the toilet. She states when he did that she was afraid he was going to fall so she helped him into a chair and called 911. EMS reported on their arrival patient was minimally responsive, was hypotensive, tachycardic, and tachypneic. They established IV access, started IV fluids, and placed him on oxygen via nasal cannula as a precaution. He had persistent hypotension and route and in addition to the normal saline they gave him 1 unit of O+ blood. By the time of arrival here they reported patient's appearance had improved, his blood pressure was improving and heart rate improving. Patient able to answer questions on arrival, opens eyes and responds to voice and follows commands. PAST MEDICAL HISTORY:See Below PAST SURGICAL HISTORY:See Below FAMILY HISTORY:See Below SOCIAL HISTORY:See Below HOME MEDICATIONS:See Below ALLERGIES:See Below VITALS:See Below PHYSICAL EXAMINATION: GENERAL: alert, well appearing, well nourished, no distress, non-toxic EYE EXAM: normal conjunctiva, PERRL and EOM's grossly intact OROPHARYNX: no exudate, no erythema, lips, buccal mucosa, and tongue normal and mucous membranes are moist NECK: supple, no nuchal rigidity, no adenopathy, non-tender LUNGS: Clear to auscultation. Normal chest wall mechanics, no w/r/r HEART: no murmurs, S1 normal and S2 normal ABDOMEN: abdomen soft, non-tender, normo-active bowel sounds, no masses, no rebound or guarding. Firmness noted in the suprapubic region. BACK: Back is symmetrical on inspection and there is no deformity, no midline tenderness, no CVA tenderness. SKIN: no rashes, petechiae, orbruising UPPER EXTREMITIES: upper extremities are grossly normal. FROM, nml pulses b/l. LOWER EXTREMITIES: No pitting edema. FROM, nml pulses b/l. NEURO EXAM: Normal sensorium, cranial nerves II-XII grossly intact, normal speech, no facial droop,nogross weakness of arms, no gross weakness of legs. Gross sensation intact. No ataxia. Vital Signs: reviewed and remarkable Differential Diagnosis: dehydration, stroke, anemia, hypoglycemia, hyponatremia, hypernatremia, urinary tract infection, pneumonia, bronchitis, sepsis, gastroenteritis, additional abdominal pathology, metabolic abnormalities, as well as others were considered MEDICAL DECISION MAKING: This is an 83-year-old male presents via EMS due to concern for increased weakness, decreased responsiveness, hypotension, tachypnea, and tachycardia. Patient ill-appearing on arrival although improved compared to initial contact with EMS per their report. Blood pressure improved at that time, patient's heart rate improving and respiratory rate improving. He was maintaining his oxygenation with 2 L via nasal cannula in place. Patient able to answer simple questions and denied any pain, nausea, or shortness of breath. Patient stated he was thirsty and felt very dry. IV fluids initially continued from EMS, to complete a 500 mL bolus. Patient had been given 1 unit PRBCs by EMS prior to arrival additionally. Labs drawn and sent, third IV established, EKG and chest ray performed at bedside interpreted me and patient monitored on telemetry. He was initially holding blood pressures, i-STAT sent for a [id number] H&H and BMP. H&H appears stable compared to prior upon review of discharge from [facility] yesterday. Chest x-ray did not reveal any overt failure, wide mediastinum, focal consolidation, or cardiomegaly. Celeste noted with drainage of gross hematuria. This was able to be flushed and further hematuria was drained with improvement in the firmness to the lower abdomen. Patient sent for CT of the head, chest, and abdomen/pelvis. Patient noted to have a white blood cell count of 18, blood cultures added, and empiric cefepime started. Lactic acid and procalcitonin added additionally. Patient's blood pressure began to trend down and he was given a second 500 mL bolus. Patient did not respond as well to this and so this was then changed to maintenance and norepinephrine added. would presented to bedside was updated several times. Patient reexamined several times and continued to deny any evolving complaints. He at one point did complain of low back pain secondary to the bed and was given IV Tylenol. CT head reassuring, CT chest without any acutely concerning pathology, CT of the abdomen pelvis revealed significant emphysematous cystitis. I reached out to Dr. Gibbs of [facility] cardiology who recommended transfer back to [facility]. Hospitalist team in agreement. I did contact [facility] and spoke with cardiology as well as ICU. Patient initially excepted however then stated they have no available beds I do not know in 1 to become available. They then began to question why patient could not be kept here in treated in our ICU for septic shock with urology consult. I told him I would be happy to discuss the case with urology in the ICU however the other admitting service and cardiology had already recommended transfer, and given the cardiac complications, the ICU and I be willing to accept the patient. Given no available beds, patient will be admitted here in the interim. I did reach out to urology who recommended assuring that the catheter was draining, they will see later on and follow-up with the patient stays here. Case discussed with the hospitalist team additionally who did come and evaluate the patient at bedside. Patient improved with addition of norepinephrine and this was titrated up to maintain a MAP of 50. IV fluids continued to be given cautiously due to patient's significantly decreased ejection fraction and risk of pulmonary edema. Patient continued to protect his airway and be alert and oriented. updated several times. Consultation(s): 1032: Discussed with Dr. Gibbs, cardiology. Recommends transfer back to [facility]. 1113: Discussed with Dr. Alejandro, cardiology at [facility], and Dr. Nelson, ICU. Initially excepted, however they questioned why patient's sepsis could not be treated here and him seen by urology here. They have no beds available at this time and do not know when an ICU bed will be available. 1130: Discussed with Ceci Sales NP with urology. 1150: Dr. Menon now bedside examining the patient, discussed course of treatment here. ER Treatment Provided: See below 0850: Discussed with who now presents to bedside. 0955: Patient now developing tachycardia and blood pressure starting to drift down again. He is also complaining of back pain and feeling cold. Nursing staff able to inflate the Celeste balloon further to stop leakage of urine out around the catheter. IV Tylenol ordered for pain. Repeat temperature checked as I am concerned patient may have evolving rigors and some of his presentation here today may be from evolving sepsis. CT of the abdomen pelvis now reads emphysematous cystitis. Vancomycin added to IV cefepime that was already ordered. 1040: Patient's blood pressure trending back down again. A 500 mL bolus was added. If his pressure continues to trend down, will add norepinephrine. 1050: Patient was successive downtrending blood pressures, will initiate norepinephrine. Diagnostics Interpreted By Me: -ECG: Normal sinus at 89, left bundle branch block, left axis, prolonged QTc, nonspecific ST/T wave changes -Cardiac Monitoring: An order was placed for continuous cardiac monitoring. The monitor shows a rate of 103 with sinus tachycardia rhythm. -Laboratory studies: As stated above and show below. -Imaging studies: cxr: No overt pulmonary edema or pleural effusions, no focal consolidation, no cardiomegaly, hardware from LifeVest noted Triage Nursing Note Reviewed Prior/Outside Records Reviewed -[facility] discharge summary from last night reviewed, echo from 12/2023 with EF 15-20%. Critical Care: Critical care of 78 min performed to assess and manage high likelihood of life-threatening sepsis, involving labs and imaging performed with assessment to evaluate hypotension diagnosis with frequent reassessment. This time includes bedside time, treatment discussions with patient/family/consultants, documentation time and excludes procedure time. Past Med/Surg History Problem List (Updated 01/17/24 @ 15:44 by Georgia Mooney DO) Sepsis (Acute) Hemorrhagic shock Cardiogenic shock Complicated urinary tract infection Hematuria Hyperglycemia due to type 2 diabetes mellitus Severe aortic stenosis S/P coronary angioplasty CAD (coronary artery disease) Septic shock Emphysematous cystitis (Acute) Generalized weakness (Acute) Anemia (Acute) Acute hypotension (Acute) Aortic valve stenosis determined by imaging Ventricular fibrillation (Acute) Respiratory failure (Acute) Cardiac arrest (Acute) Bilateral carpal tunnel syndrome Right carpal tunnel syndrome Right trigger finger got injection Vitamin D deficiency Hypocalcemia Acute blood loss anemia Anemia (Acute) GI bleed (Acute) Aortic valve sclerosis (Chronic) follows with Dr. Velasquez Diabetes mellitus, type II (Chronic) NIDDM Dyslipidemia (Chronic) HTN (hypertension) (Chronic) Medical History Aortic valve sclerosis followed with Dr Velasquez Diabetes mellitus, type 2 NIDDM History of anemia r/t GI bleed in 11/2018. EGD and x5 units of blood History of GI bleed (11/2018) Hypertension Hyperlipidemia History of COVID-29 Nov 2021 > not hospitalized Surgical History S/P carpal tunnel release (05/15/23) right History of left cataract extraction History of tooth extraction History of tonsillectomy History of esophagogastroduodenoscopy (EGD) 12/04/2018. propofol no issues. History of colonoscopy 10/2010 colonoscopy: Sigmoid diverticulosis Family History Father Diabetes Bladder cancer Mother Diabetes Other No family history of adverse response to anesthesia Social History Smoking Status: Unknown if ever smoked Tobacco Type: Cigarettes Second Hand Exposure: No; Do You Dip or Chew Tobacco: No; Hx Alcohol Use: No Hx Substance Use: No Preferred Language: Dutch Communication Ability: Effective Bag Bundler Required: No Beliefs That Will Affect Care: None Current Living Situation: Spouse Feels Safe at Home: Yes Assistive Devices: Hearing Aid - Bilateral and Walker Allergies Allergies Allergy/AdvReac Type Severity Reaction Status Date / Time No Known Allergies Allergy Verified 01/07/24 19:19 Home Meds Home Medications Medication Instructions Recorded Confirmed atorvastatin 40 mg tablet 40 mg PO QAM 12/03/18 01/17/24 cholecalciferol (vitamin D3) 25 1,000 unit PO QAM 12/03/18 01/17/24 mcg (1,000 unit) capsule empagliflozin 25 mg tablet 25 mg PO QAM 06/29/22 01/17/24 (Jardiance) ascorbic acid (vitamin C) 125 mg 125 mg PO DAILY 01/07/24 01/17/24 chewable tablet (Vitamin C) cyanocobalamin (vitamin B-12) 100 100 mcg PO DAILY 01/07/24 01/17/24 mcg tablet glipizide 5 mg tablet, extended 5 mg PO QAM 01/07/24 01/17/24 release 24 hr metformin 1,000 mg tablet 1,000 mg PO BID 01/07/24 01/17/24 amiodarone 200 mg tablet 200 mg PO DAILY 01/17/24 01/17/24 clopidogrel 75 mg tablet 75 mg PO DAILY 01/17/24 01/17/24 metoprolol succinate 25 mg 25 mg PO DAILY 01/17/24 01/17/24 tablet,extended release 24 hr sacubitril 24 mg-valsartan 26 mg 1 tab PO BID 01/17/24 01/17/24 tablet (Entresto) spironolactone 25 mg tablet 12.5 mg PO DAILY 01/17/24 01/17/24 tamsulosin 0.4 mg capsule 0.4 mg PO HS 01/17/24 01/17/24 Previous Rx's Medication Instructions Recorded aspirin 81 mg chewable tablet 81 mg PO QAM #0 tabs 01/08/24 (Children's Aspirin) Results & Data (ED) Vital Signs Vital Signs - 24 hr 01/17/24 08:10 01/17/24 08:10 01/17/24 08:10 Temperature 36.6 C Temperature Source Oral Pulse Rate 88 Pulse Rate [Apical] 88 Pulse Rate from SpO2 Sensor Pulse Rhythm Regular Pulse Rhythm [Apical] Regular Pulse Strength Normal Pulse Strength [Apical] Normal Respiratory Rate 24 Respiratory Effort / Characteristics Non-Labored Spontaneous Non-Labored Spontaneous Respiratory Depth Normal Normal Respiratory Pattern Regular Regular Blood Pressure 114/64 Blood Pressure [Left Arm] 114/64 Blood Pressure Mean 80 Blood Pressure Mean [Left Arm] 80 Blood Pressure Position Lying Pulse Oximetry 100 99 Oxygen Delivery Method Nasal Cannula Nasal Cannula Nasal Cannula Oxygen Flow Rate 2 2 2 Sepsis Recent Fever Within 48 Hours No Sepsis New/Unexplained Change in Mental Status No Sepsis Action Taken by Nursing No Action Required 01/17/24 08:31 01/17/24 08:49 01/17/24 09:00 Temperature Temperature Source Pulse Rate 88 90 93 H Pulse Rate [Apical] Pulse Rate from SpO2 Sensor 91 H Pulse Rhythm Regular Pulse Rhythm [Apical] Pulse Strength Pulse Strength [Apical] Respiratory Rate 24 27 H Respiratory Effort / Characteristics Respiratory Depth Respiratory Pattern Blood Pressure 99/59 L Blood Pressure [Left Arm] Blood Pressure Mean 72 Blood Pressure Mean [Left Arm] Blood Pressure Position Pulse Oximetry 99 100 Oxygen Delivery Method Room Air Nasal Cannula Oxygen Flow Rate 2 2 Sepsis Recent Fever Within 48 Hours Sepsis New/Unexplained Change in Mental Status Sepsis Action Taken by Nursing 01/17/24 09:00 01/17/24 09:15 01/17/24 09:49 Temperature Temperature Source Pulse Rate 93 H 93 H 113 H Pulse Rate [Apical] Pulse Rate from SpO2 Sensor 92 H 92 H Pulse Rhythm Pulse Rhythm [Apical] Pulse Strength Pulse Strength [Apical] Respiratory Rate 31 H 31 H Respiratory Effort / Characteristics Respiratory Depth Respiratory Pattern Blood Pressure 99/59 L 120/69 Blood Pressure [Left Arm] Blood Pressure Mean 74 86 Blood Pressure Mean [Left Arm] Blood Pressure Position Pulse Oximetry 100 100 Oxygen Delivery Method Nasal Cannula Oxygen Flow Rate 2 Sepsis Recent Fever Within 48 Hours Sepsis New/Unexplained Change in Mental Status Sepsis Action Taken by Nursing 01/17/24 09:50 01/17/24 10:00 01/17/24 10:15 Temperature 36.7 C Temperature Source Pulse Rate 113 H 111 H 102 H Pulse Rate [Apical] Pulse Rate from SpO2 Sensor 116 H 111 H 103 H Pulse Rhythm Pulse Rhythm [Apical] Pulse Strength Pulse Strength [Apical] Respiratory Rate 35 H 25 H Respiratory Effort / Characteristics Respiratory Depth Respiratory Pattern Blood Pressure 79/50 L 79/52 L 87/60 L Blood Pressure [Left Arm] Blood Pressure Mean 60 61 71 Blood Pressure Mean [Left Arm] Blood Pressure Position Pulse Oximetry 94 100 100 Oxygen Delivery Method Nasal Cannula Oxygen Flow Rate 2 Sepsis Recent Fever Within 48 Hours Sepsis New/Unexplained Change in Mental Status Sepsis Action Taken by Nursing 01/17/24 10:30 01/17/24 10:36 01/17/24 11:03 Temperature Temperature Source Pulse Rate 102 H 102 H Pulse Rate [Apical] Pulse Rate from SpO2 Sensor 102 H 102 H Pulse Rhythm Pulse Rhythm [Apical] Pulse Strength Pulse Strength [Apical] Respiratory Rate 26 H 27 H Respiratory Effort / Characteristics Respiratory Depth Respiratory Pattern Blood Pressure 84/57 L 73/54 L 66/49 L Blood Pressure [Left Arm] Blood Pressure Mean 62 60 54 Blood Pressure Mean [Left Arm] Blood Pressure Position Pulse Oximetry 100 100 98 Oxygen Delivery Method Nasal Cannula Oxygen Flow Rate 2 Sepsis Recent Fever Within 48 Hours Sepsis New/Unexplained Change in Mental Status Sepsis Action Taken by Nursing 01/17/24 11:06 01/17/24 11:18 01/17/24 11:19 Temperature 36.7 C Temperature Source Oral Pulse Rate 108 H 105 H Pulse Rate [Apical] 104 H Pulse Rate from SpO2 Sensor 108 H Pulse Rhythm Pulse Rhythm [Apical] Pulse Strength Pulse Strength [Apical] Respiratory Rate 29 H 28 H 26 H Respiratory Effort / Characteristics Respiratory Depth Shallow Respiratory Pattern Blood Pressure 66/48 L 72/50 L Blood Pressure [Left Arm] 70/48 L Blood Pressure Mean 54 58 Blood Pressure Mean [Left Arm] 55 Blood Pressure Position Pulse Oximetry 98 98 Oxygen Delivery Method Nasal Cannula Oxygen Flow Rate 2 Sepsis Recent Fever Within 48 Hours Sepsis New/Unexplained Change in Mental Status Sepsis Action Taken by Nursing 01/17/24 11:21 01/17/24 11:30 01/17/24 11:35 Temperature Temperature Source Pulse Rate 108 H Pulse Rate [Apical] Pulse Rate from SpO2 Sensor 109 H Pulse Rhythm Pulse Rhythm [Apical] Pulse Strength Pulse Strength [Apical] Respiratory Rate 28 H Respiratory Effort / Characteristics Respiratory Depth Respiratory Pattern Blood Pressure 67/48 L 83/58 L 99/64 L Blood Pressure [Left Arm] Blood Pressure Mean 54 64 69 Blood Pressure Mean [Left Arm] Blood Pressure Position Pulse Oximetry 98 Oxygen Delivery Method Oxygen Flow Rate Sepsis Recent Fever Within 48 Hours Sepsis New/Unexplained Change in Mental Status Sepsis Action Taken by Nursing 01/17/24 11:35 01/17/24 11:40 01/17/24 11:40 Temperature Temperature Source Pulse Rate 99 H Pulse Rate [Apical] Pulse Rate from SpO2 Sensor Pulse Rhythm Pulse Rhythm [Apical] Pulse Strength Pulse Strength [Apical] Respiratory Rate Respiratory Effort / Characteristics Respiratory Depth Respiratory Pattern Blood Pressure 99/64 L 110/64 110/64 Blood Pressure [Left Arm] Blood Pressure Mean 69 76 76 Blood Pressure Mean [Left Arm] Blood Pressure Position Pulse Oximetry 94 Oxygen Delivery Method Oxygen Flow Rate Sepsis Recent Fever Within 48 Hours Sepsis New/Unexplained Change in Mental Status Sepsis Action Taken by Nursing 01/17/24 11:54 01/17/24 12:00 01/17/24 12:05 Temperature Temperature Source Pulse Rate 100 H 97 H Pulse Rate [Apical] Pulse Rate from SpO2 Sensor Pulse Rhythm Pulse Rhythm [Apical] Pulse Strength Pulse Strength [Apical] Respiratory Rate Respiratory Effort / Characteristics Respiratory Depth Respiratory Pattern Blood Pressure 116/62 112/61 Blood Pressure [Left Arm] Blood Pressure Mean 73 71 Blood Pressure Mean [Left Arm] Blood Pressure Position Pulse Oximetry 97 Oxygen Delivery Method Oxygen Flow Rate Sepsis Recent Fever Within 48 Hours Sepsis New/Unexplained Change in Mental Status Sepsis Action Taken by Nursing 01/17/24 12:05 01/17/24 12:05 01/17/24 12:06 Temperature Temperature Source Pulse Rate 93 H Pulse Rate [Apical] Pulse Rate from SpO2 Sensor 93 H Pulse Rhythm Pulse Rhythm [Apical] Pulse Strength Pulse Strength [Apical] Respiratory Rate 24 Respiratory Effort / Characteristics Respiratory Depth Respiratory Pattern Blood Pressure 112/61 112/61 Blood Pressure [Left Arm] Blood Pressure Mean 71 71 Blood Pressure Mean [Left Arm] Blood Pressure Position Pulse Oximetry 98 Oxygen Delivery Method Oxygen Flow Rate Sepsis Recent Fever Within 48 Hours Sepsis New/Unexplained Change in Mental Status Sepsis Action Taken by Nursing 01/17/24 12:15 01/17/24 12:15 01/17/24 12:15 Temperature Temperature Source Pulse Rate 94 H Pulse Rate [Apical] Pulse Rate from SpO2 Sensor 94 H Pulse Rhythm Pulse Rhythm [Apical] Pulse Strength Pulse Strength [Apical] Respiratory Rate 22 Respiratory Effort / Characteristics Respiratory Depth Respiratory Pattern Blood Pressure 111/61 111/61 Blood Pressure [Left Arm] Blood Pressure Mean 86 86 Blood Pressure Mean [Left Arm] Blood Pressure Position Pulse Oximetry 99 Oxygen Delivery Method Oxygen Flow Rate Sepsis Recent Fever Within 48 Hours Sepsis New/Unexplained Change in Mental Status Sepsis Action Taken by Nursing 01/17/24 12:20 01/17/24 12:25 01/17/24 12:25 Temperature Temperature Source Pulse Rate Pulse Rate [Apical] Pulse Rate from SpO2 Sensor Pulse Rhythm Pulse Rhythm [Apical] Pulse Strength Pulse Strength [Apical] Respiratory Rate Respiratory Effort / Characteristics Respiratory Depth Respiratory Pattern Blood Pressure 112/61 111/58 L 111/58 L Blood Pressure [Left Arm] Blood Pressure Mean 84 74 74 Blood Pressure Mean [Left Arm] Blood Pressure Position Pulse Oximetry Oxygen Delivery Method Oxygen Flow Rate Sepsis Recent Fever Within 48 Hours Sepsis New/Unexplained Change in Mental Status Sepsis Action Taken by Nursing 01/17/24 12:25 01/17/24 12:30 01/17/24 12:30 Temperature Temperature Source Pulse Rate Pulse Rate [Apical] Pulse Rate from SpO2 Sensor Pulse Rhythm Pulse Rhythm [Apical] Pulse Strength Pulse Strength [Apical] Respiratory Rate Respiratory Effort / Characteristics Respiratory Depth Respiratory Pattern Blood Pressure 111/58 L 111/56 L 111/56 L Blood Pressure [Left Arm] Blood Pressure Mean 74 83 83 Blood Pressure Mean [Left Arm] Blood Pressure Position Pulse Oximetry Oxygen Delivery Method Oxygen Flow Rate Sepsis Recent Fever Within 48 Hours Sepsis New/Unexplained Change in Mental Status Sepsis Action Taken by Nursing 01/17/24 12:30 Temperature Temperature Source Pulse Rate 93 H Pulse Rate [Apical] Pulse Rate from SpO2 Sensor 93 H Pulse Rhythm Pulse Rhythm [Apical] Pulse Strength Pulse Strength [Apical] Respiratory Rate 23 Respiratory Effort / Characteristics Respiratory Depth Respiratory Pattern Blood Pressure Blood Pressure [Left Arm] Blood Pressure Mean Blood Pressure Mean [Left Arm] Blood Pressure Position Pulse Oximetry 98 Oxygen Delivery Method Oxygen Flow Rate Sepsis Recent Fever Within 48 Hours Sepsis New/Unexplained Change in Mental Status Sepsis Action Taken by Nursing Laboratory Data 01/17/24 12:16 01/17/24 12:55 Lab Results 01/17/24 01/17/24 01/17/24 Range/Units 08:42 08:44 08:45 WBC 18.37 H (4.8-10.8) K/ul RBC 2.95 L (4.70-6.10) M/uL Hgb 8.2 L (14.0-18.0) g/dl POC Hgb 8.8 L (14.0-18.0) g/dl Hct 26.6 L (42.0-52.0) % POC Hct 26 L (42-52) % MCV 90.2 (80.0-100.0) fL MCH 27.8 (25.0-34.0) pg MCHC 30.8 L (32.0-36.0) g/dL RDW Std Deviation 47.3 H (36.4-46.3) fL RDW Coeff of Erendira 15.1 H (11.5-14.5) % Plt Count 249 (130-400) K/uL MPV 9.8 (9.4-12.4) fL Immature Gran % (Auto) 1.2 % Neut % (Auto) 87.7 % Lymph % (Auto) 2.1 % [place] % (Auto) 8.8 % Eos % (Auto) 0.0 % Baso % (Auto) 0.2 % Neut # (Auto) 16.11 H (1.40-6.50) K/uL Lymph # (Auto) 0.39 L (1.20-3.40) K/uL [place] # (Auto) 1.62 H (0.11-0.59) K/uL Eos # (Auto) 0.00 (0.00-0.50) K/uL Baso # (Auto) 0.03 (0.00-0.20) K/uL Immature Gran # (Auto) 0.22 H (0.01-0.20) K/uL PT 11.2 (9.0-12.0) Seconds INR 1.0 (0.9-1.1) VBG pH (7.36-7.41) VBG pCO2 (38-50) mmHg VBG pO2 mmHg VBG HCO3 mmol/L VBG O2 Saturation % VBG Base Excess mEq/L POC Sodium 131 L (135-144) mmol/L Sodium 131 L (136-145) mmol/L POC Potassium 4.9 (3.3-5.0) mmol/L Potassium 4.9 (3.5-5.1) mmol/L POC Chloride 102 (101-112) mmol/L Chloride 98 (98-107) mmol/L Carbon Dioxide 15 L (21-32) mmol/L POC Total CO2 16 L (24-31) mmol/L Anion Gap 18 H (3-11) POC Anion Gap 19.0 (16-25) mmol/L POC BUN 49 H (7-18) mg/dl BUN 48 H (6-23) mg/dl Creatinine 1.66 H (0.6-1.4) mg/dl POC Creatinine 1.7 H (0.6-1.3) mg/dl Est Cr Clr Drug Dosing 36.4 ml/min eGFR 40.40 BUN/Creatinine Ratio 28.9 H (10-20) Glucose 459 H* (70-99(Fasting)) mg/dl POC Glucose (70-99) mg/dl POC Glucose (other) 437 H* (70-99) mg/dl Lactate (0.4-2.0) mmol/L Calcium 8.7 (8.6-10.3) mg/dl POC Ioniz Calcium Windy 0.98 L (1.12-1.32) mmol/l Total Bilirubin 1.0 (0.2-1.0) mg/dl AST 13 (13-39) U/L ALT 11 (7-52) U/L Alkaline Phosphatase 59 (34-104) U/L Troponin I High Sens 23.9 H (0-20) pg/ml Total Protein 6.8 (6.0-8.3) gm/dl Albumin 3.8 (3.4-5.0) gm/dl Globulin 3.0 (2.5-4.0) gm/dl Albumin/Globulin Ratio 1.3 (0.9-2) Lipase 60 (11-82) U/L Procalcitonin 3.77 H (0-0.5) ng/ml Blood Type O Negative Antibody Screen NEGATIVE Crossmatch See Detail 01/17/24 01/17/24 01/17/24 Range/Units 10:16 11:23 11:36 WBC (4.8-10.8) K/ul RBC (4.70-6.10) M/uL Hgb (14.0-18.0) g/dl POC Hgb (14.0-18.0) g/dl Hct (42.0-52.0) % POC Hct (42-52) % MCV (80.0-100.0) fL MCH (25.0-34.0) pg MCHC (32.0-36.0) g/dL RDW Std Deviation (36.4-46.3) fL RDW Coeff of Erendira (11.5-14.5) % Plt Count (130-400) K/uL MPV (9.4-12.4) fL Immature Gran % (Auto) % Neut % (Auto) % Lymph % (Auto) % [place] % (Auto) % Eos % (Auto) % Baso % (Auto) % Neut # (Auto) (1.40-6.50) K/uL Lymph # (Auto) (1.20-3.40) K/uL [place] # (Auto) (0.11-0.59) K/uL Eos # (Auto) (0.00-0.50) K/uL Baso # (Auto) (0.00-0.20) K/uL Immature Gran # (Auto) (0.01-0.20) K/uL PT (9.0-12.0) Seconds INR (0.9-1.1) VBG pH (7.36-7.41) VBG pCO2 (38-50) mmHg VBG pO2 mmHg VBG HCO3 mmol/L VBG O2 Saturation % VBG Base Excess mEq/L POC Sodium (135-144) mmol/L Sodium (136-145) mmol/L POC Potassium (3.3-5.0) mmol/L Potassium (3.5-5.1) mmol/L POC Chloride (101-112) mmol/L Chloride (98-107) mmol/L Carbon Dioxide (21-32) mmol/L POC Total CO2 (24-31) mmol/L Anion Gap (3-11) POC Anion Gap (16-25) mmol/L POC BUN (7-18) mg/dl BUN (6-23) mg/dl Creatinine (0.6-1.4) mg/dl POC Creatinine (0.6-1.3) mg/dl Est Cr Clr Drug Dosing ml/min eGFR BUN/Creatinine Ratio (10-20) Glucose (70-99(Fasting)) mg/dl POC Glucose 468 H* (70-99) mg/dl POC Glucose (other) (70-99) mg/dl Lactate 6.3 H* (0.4-2.0) mmol/L Calcium (8.6-10.3) mg/dl POC Ioniz Calcium Windy (1.12-1.32) mmol/l Total Bilirubin (0.2-1.0) mg/dl AST (13-39) U/L ALT (7-52) U/L Alkaline Phosphatase (34-104) U/L Troponin I High Sens 38.5 H D (0-20) pg/ml Total Protein (6.0-8.3) gm/dl Albumin (3.4-5.0) gm/dl Globulin (2.5-4.0) gm/dl Albumin/Globulin Ratio (0.9-2) Lipase (11-82) U/L Procalcitonin (0-0.5) ng/ml Blood Type Antibody Screen Crossmatch 01/17/24 01/17/24 Range/Units 12:12 12:16 WBC (4.8-10.8) K/ul RBC (4.70-6.10) M/uL Hgb 6.8 L* (14.0-18.0) g/dl POC Hgb (14.0-18.0) g/dl Hct 22.3 L (42.0-52.0) % POC Hct (42-52) % MCV (80.0-100.0) fL MCH (25.0-34.0) pg MCHC (32.0-36.0) g/dL RDW Std Deviation (36.4-46.3) fL RDW Coeff of Erendira (11.5-14.5) % Plt Count (130-400) K/uL MPV (9.4-12.4) fL Immature Gran % (Auto) % Neut % (Auto) % Lymph % (Auto) % [place] % (Auto) % Eos % (Auto) % Baso % (Auto) % Neut # (Auto) (1.40-6.50) K/uL Lymph # (Auto) (1.20-3.40) K/uL [place] # (Auto) (0.11-0.59) K/uL Eos # (Auto) (0.00-0.50) K/uL Baso # (Auto) (0.00-0.20) K/uL Immature Gran # (Auto) (0.01-0.20) K/uL PT (9.0-12.0) Seconds INR (0.9-1.1) VBG pH 7.25 L (7.36-7.41) VBG pCO2 26 L (38-50) mmHg VBG pO2 39 mmHg VBG HCO3 11 mmol/L VBG O2 Saturation 63.1 % VBG Base Excess -14.1 mEq/L POC Sodium (135-144) mmol/L Sodium (136-145) mmol/L POC Potassium (3.3-5.0) mmol/L Potassium (3.5-5.1) mmol/L POC Chloride (101-112) mmol/L Chloride (98-107) mmol/L Carbon Dioxide (21-32) mmol/L POC Total CO2 (24-31) mmol/L Anion Gap (3-11) POC Anion Gap (16-25) mmol/L POC BUN (7-18) mg/dl BUN (6-23) mg/dl Creatinine (0.6-1.4) mg/dl POC Creatinine (0.6-1.3) mg/dl Est Cr Clr Drug Dosing ml/min eGFR BUN/Creatinine Ratio (10-20) Glucose (70-99(Fasting)) mg/dl POC Glucose 427 H* (70-99) mg/dl POC Glucose (other) (70-99) mg/dl Lactate 8.0 H* (0.4-2.0) mmol/L Calcium (8.6-10.3) mg/dl POC Ioniz Calcium Windy (1.12-1.32) mmol/l Total Bilirubin (0.2-1.0) mg/dl AST (13-39) U/L ALT (7-52) U/L Alkaline Phosphatase (34-104) U/L Troponin I High Sens (0-20) pg/ml Total Protein (6.0-8.3) gm/dl Albumin (3.4-5.0) gm/dl Globulin (2.5-4.0) gm/dl Albumin/Globulin Ratio (0.9-2) Lipase (11-82) U/L Procalcitonin (0-0.5) ng/ml Blood Type Antibody Screen Crossmatch Administered Medications Norepinephrine Bitartrate (Levophed/D5w) 4 mg in 250 mls @ 54.66 mls/hr IV .Q4H35M [facility]; Protocol Stop: 02/16/24 10:44 Last Titration: 01/17/24 14:13 Dose: 0.16 mcg/kg/min, 54.7 mls/hr Documented By: Titration: 01/17/24 13:35 Dose: 0.18 mcg/kg/min, 61.5 mls/hr Documented By: Titration: 01/17/24 11:29 Dose: 0.2 mcg/kg/min, 68.3 mls/hr Documented By: Titration: 01/17/24 11:20 Dose: 0.18 mcg/kg/min, 61.5 mls/hr Documented By: Titration: 01/17/24 11:13 Dose: 0.09 mcg/kg/min, 30.7 mls/hr Documented By: Titration: 01/17/24 10:59 Dose: 0.07 mcg/kg/min, 23.9 mls/hr Documented By: Admin: 01/17/24 10:51 Dose: 0.05 mcg/kg/min, 17.1 mls/hr Documented By: BENNY Co-signed By: NILA Insulin Human Regular 250 (units/ Sodium Chloride) 250 mls @ 9 mls/hr IV .Q24H ALIX; Protocol Stop: 02/16/24 12:39 Last Admin: 01/17/24 13:59 Dose: 9 units/hr, 9 mls/hr Documented By: KAREL Co-signed By: RNC Discontinued Medications Cefepime HCl (Maxipime 2000mg) 2,000 mg in 20 mls @ 5 mls/min IV NOW STA; Protocol Stop: 01/17/24 09:16 Last Admin: 01/17/24 09:50 Dose: 5 mls/min Documented By: NILA Acetaminophen (Ofirmev) 1,000 mg in 100 mls @ 400 mls/hr IV NOW STA Stop: 01/17/24 09:39 Last Infusion: 01/17/24 10:05 Dose: Infused Documented By: Admin: 01/17/24 09:50 Dose: 400 mls/hr Documented By: NILA Vancomycin HCl 2,000 mg/ (Sodium Chloride) 540 mls @ 200 mls/hr IV NOW STA Stop: 01/17/24 12:26 Last Admin: 01/17/24 11:02 Dose: 200 mls/hr Documented By: BENNY Sodium Chloride (Nss) 500 mls @ 999 mls/hr IV .Q31M ONE Stop: 01/17/24 10:29 Last Infusion: 01/17/24 11:23 Dose: Infused Documented By: Admin: 01/17/24 10:31 Dose: 999 mls/hr Documented By: NILA Sodium Chloride (Nss) 500 mls @ 125 mls/hr IV .Q4H ALIX Stop: 01/17/24 14:59 Last Admin: 01/17/24 11:01 Dose: 125 mls/hr Documented By: BENNY Insulin Human Regular (Novolin-R Insulin Per Unit Charge) 9 units IV NOW STA Stop: 01/17/24 10:45 Last Admin: 01/17/24 11:00 Dose: 9 units Documented By: BENNY Co-signed By: NILA Ioversol (Optiray 320 125ml) 120 ml IV ONCE ONE Stop: 01/17/24 08:52 Last Admin: 01/17/24 08:51 Dose: 120 ml Documented By: DEREK Miscellaneous (Stat Iv Infusion Titration Per Protocol) 1 each N/A NOW STA Stop: 01/17/24 10:41 Last Admin: 01/17/24 11:04 Dose: Not Given Documented By: BENNY Miscellaneous (Hhs Goal Range 250-350 Mg/Dl) 1 each N/A ONE ONE Stop: 01/17/24 12:23 Last Admin: 01/17/24 14:01 Dose: 1 each Documented By: KAREL Norepinephrine Bitartrate (Norepinephrine/D5w 4 Mg/250 Ml) Confirm Administered Dose 4 mg IV .STK-MED ONE Stop: 01/17/24 10:35 Last Admin: 01/17/24 11:04 Dose: Not Given Documented By: BENNY Imaging Data Radiologist's Impression: Chest X-Ray 01/17/24 08:31 XR chest 1V portable HISTORY: 83 years-old Male Chest pain, nonspecific COMPARISON: 01/08/2024 TECHNIQUE: AP view of the chest FINDINGS: Cardiac silhouette is enlarged. No pneumothorax. Trace pleural effusions. Pulmonary vascular congestion. Numerous leads project over the chest. Bones appear grossly intact. IMPRESSION: 1. Cardiomegaly with pulmonary vascular congestion. 2. Trace pleural effusions. ACT 112: Negative or not required by law. The above report was generated using voice recognition software. It may contain grammatical, syntax or spelling errors. Electronically signed by: Murali Echeverria M.D. 01/17/2024 9:00 AM Abdomen/Pelvis CT 01/17/24 08:[address] WITH IV CONTRAST CT DOSE: 2901.2 mGy.cm HISTORY: Acutely unresponsive. Acute hypotension status post recent catheterization. hypotension TECHNIQUE: Multiaxial CT images of the abdomen and pelvis were performed following the IV administration of 120 cc of Optiray, A dose lowering technique was utilized adhering to the principles of ALARA. COMPARISON STUDY: CT chest of same day, CT abdomen and pelvis 01/07/2024 FINDINGS: Unchanged appearance of the nondisplaced bilateral anterior rib fractures which appear acute. No acute displaced fracture. Chest CT is dictated separately. Cardiomegaly with extensive coronary artery calcifications. No pneumatosis or pneumoperitoneum. There is a considerable amount of air noted within the bilateral femoral veins which also extends into the IVC and splenic vein. Linear branching lucencies are also noted within the left hepatic lobe adjacent to the falciform ligament on image 89 series 9 suggestive of portal venous gas. Unremarkable spleen, pancreas and adrenal glands. Cholelithiasis without CT evidence of acute cholecystitis. Hepatic steatosis. There is patency of the hepatic and portal veins. Symmetric mild to moderate bilateral hydroureteronephrosis with perinephric and perirenal stranding. No renal or ureteral calculi. The urinary bladder is distended measuring up to 20 cm and contains a large air-fluid level. Complex debris/hemorrhage layers within the bladder lumen. There is extensive air within the urinary bladder lumen which also involves adjacent pelvic veins. A Celeste catheter is present which appears be in satisfactory positioning. Enlarged prostate. Atherosclerosis of the aorta with infrarenal ectasia measuring 2.7 cm. There is asymmetric stranding/deep tissue edema within the right upper thigh. No discrete hematoma identified. Mild distal esophageal wall thickening. There is no bowel obstruction or bowel wall thickening. No acute fracture. Calcification suggestive of a sequestered fragment noted within the central canal on image 252 series 9 at the level of L5-S1. IMPRESSION: 1. Celeste catheter is noted within a markedly distended urinary bladder which contains a large air-fluid level with intraluminal dependent debris/hemorrhage. Additionally, there is extensive air within the bladder wall suggestive of emphysematous cystitis with air extending into the adjacent pelvic veins, femoral veins, IVC and splenic vein. 2. Small amount of portal venous gas within the left hepatic lobe. No definite pneumatosis or pneumoperitoneum. 3. No bowel obstruction or bowel wall thickening. 4. Bilateral mild to moderate hydroureteronephrosis secondary to the urinary bladder distention. 5. Asymmetric deep tissue edema within the right proximal thigh may be on a post procedural bases. No large discrete hematoma identified. 6. Cholelithiasis. 7. Unchanged appearance of the acute bilateral anterior rib fractures which are nondisplaced. These may be secondary to prior chest compressions. 8. Additional findings as above. ACT 112: Negative or not required by law. The above report was generated using voice recognition software. It may contain grammatical, syntax or spelling errors. Electronically signed by: Murali Echeverria M.D. 01/17/2024 9:32 AM Chest CTA 01/17/24 08:38 CT angio chest PE protocol HISTORY: 83 years-old Male with hypotension, s/p cath. Acute hypotension with unresponsiveness status post recent catheterization procedure TECHNIQUE: Multiple CTA images of the chest were obtained after the intravenous administration of 120 ml Optiray. Coronal and sagittal MIPS were obtained from the axial data set and were submitted for review. All measurements were obtained according to NASCET criteria. A dose lowering technique was utilized adhering to the principles of ALARA. COMPARISON: CT abdomen and pelvis of same day, CTA chest 01/07/2024 FINDINGS: CTA: Moderate cardiomegaly. There is no pericardial effusion. Extensive coronary artery calcifications. Atherosclerosis of the thoracic aorta without aneurysm or dissection. Pulmonary artery is dilated up to 3.3 cm suggestive of pulmonary arterial hypertension. No pulmonary emboli identified. CT CHEST: No dominant thyroid nodule. Borderline enlarged mediastinal lymph nodes measuring up to 10 mm of slightly increased in size from prior. No pneumothorax, pleural effusion or lobar airspace consolidation. No overt pulmonary edema. Mild dependent subsegmental bibasilar atelectasis. Central airways are patent. Linear branching lucencies are noted within the left hepatic lobe on image [address] abdomen and pelvis is dictated separately. Mild distal esophageal wall thickening. Unchanged nondisplaced bilateral anterior rib fractures compared to the prior study. IMPRESSION: 1. Cardiomegaly with evidence of pulmonary arterial hypertension and extensive coronary artery calcifications. 2. No pulmonary emboli. 3. No pleural effusion or airspace consolidation typical for pneumonia. 4. Mild nonspecific borderline enlarged mediastinal lymph nodes. 5. Please refer to the same day CT abdomen and pelvis study for additional findings. ACT 112: Negative or not required by law. The above report was generated using voice recognition software. It may contain grammatical, syntax or spelling errors. Electronically signed by: Murali Echeverria M.D. 01/17/2024 9:[address] 01/17/24 08:38 CT OF THE HEAD WITHOUT CONTRAST CLINICAL HISTORY: Altered mental status. COMPARISON STUDY: Head CT January 07, 2024. TECHNIQUE: Helical axial images of the head were obtained without IV contrast. Automated exposure control was utilized for the study. A dose lowering technique was utilized adhering to the principles of ALARA. FINDINGS: No acute intracranial hemorrhage, midline shift or mass effect is present. The ventricular system is stable. White matter hypodensities are unchanged and favor small vessel disease. The basal cisterns are patent. No extra-axial collections are present. There are no findings to suggest acute dural sinus thrombosis or acute territorial infarct. No significant calvarial abnormalities are present. Visualized portions of the sinuses and mastoid air cells are clear. IMPRESSION: No acute intracranial findings. No change in appearance of the brain. ACT 112: Negative or not required by law. Electronically signed by: Miko Carolina M.D. 01/17/2024 9:04 AM Discharge Plan Visit Data Chief Complaint: Cardiac Assessment Stated Complaint: CARDIAC ASSESSMENT ED Provider: Georgia Mooney Discharge Problem: Sepsis, Acute hypotension, Anemia, Generalized weakness, Emphysematous cystitis Patient Disposition: Admitted As Inpatient Discharge Instructions Interventions: ED Discharge Assessment Last Done: 01/17/24 12:48
--- NOTE | 2024-01-17 09:33 | CT Scan Report ---
ABDOMEN AND PELVIS CT WITH IV CONTRAST CT DOSE: 2901.2 mGy.cm HISTORY: Acutely unresponsive. Acute hypotension status post recent catheterization. hypotension TECHNIQUE: Multiaxial CT images of the abdomen and pelvis were performed following the IV administrat ion of 120 cc of Optiray, A dose lowering technique was utilized adhering to the principles of ALARA . COMPARISON STUDY: CT chest of same day, CT abdomen and pelvis 01/07/2024 FINDINGS: Unchanged appearance of the nondisplaced bilateral anterior rib fractures which appear acut e. No acute displaced fracture. Chest CT is dictated separately. Cardiomegaly with extensive coronary artery calcifications. No pneumatosis or pneumoperitoneum. There is a considerable amount of air noted within the bilateral femoral veins which also extends into the IVC and splenic vein. Linear branching lucencies are also n oted within the left hepatic lobe adjacent to the falciform ligament on image 89 series 9 suggestive of portal venous gas. Unremarkable spleen, pancreas and adrenal glands. Cholelithiasis without CT evidence of acute cholecy stitis. Hepatic steatosis. There is patency of the hepatic and portal veins. Symmetric mild to modera te bilateral hydroureteronephrosis with perinephric and perirenal stranding. No renal or ureteral cielo culi. The urinary bladder is distended measuring up to 20 cm and contains a large air-fluid level. Co mplex debris/hemorrhage layers within the bladder lumen. There is extensive air within the urinary bl adder lumen which also involves adjacent pelvic veins. A Celeste catheter is present which appears be i n satisfactory positioning. Enlarged prostate. Atherosclerosis of the aorta with infrarenal ectasia m easuring 2.7 cm. There is asymmetric stranding/deep tissue edema within the right upper thigh. No dis crete hematoma identified. Mild distal esophageal wall thickening. There is no bowel obstruction or bowel wall thickening. No ac jas fracture. Calcification suggestive of a sequestered fragment noted within the central canal on im age 252 series 9 at the level of L5-S1. IMPRESSION: 1. Celeste catheter is noted within a markedly distended urinary bladder which contains a large air-flu id level with intraluminal dependent debris/hemorrhage. Additionally, there is extensive air within t he bladder wall suggestive of emphysematous cystitis with air extending into the adjacent pelvic vein s, femoral veins, IVC and splenic vein. 2. Small amount of portal venous gas within the left hepatic lobe. No definite pneumatosis or pneumop eritoneum. 3. No bowel obstruction or bowel wall thickening. 4. Bilateral mild to moderate hydroureteronephrosis secondary to the urinary bladder distention. 5. Asymmetric deep tissue edema within the right proximal thigh may be on a post procedural bases. No large discrete hematoma identified. 6. Cholelithiasis. 7. Unchanged appearance of the acute bilateral anterior rib fractures which are nondisplaced. These m ay be secondary to prior chest compressions. 8. Additional findings as above. ACT 112: Negative or not required by law. The above report was generated using voice recognition software. It may contain grammatical, syntax o r spelling errors. Electronically signed by: Murali Echeverria M.D. 01/17/2024 9:32 AM
[2024-01-17 09:38] LABS: Albumin Level 3.8 gm/dl (3.4-5.0); Calcium 8.7 mg/dl (8.6-10.3)
[2024-01-17 09:39] LABS: Troponin I High Sensitivity 23.9 pg/ml (0-20)
[2024-01-17] MEDS: CEFEPIME 2000MG 2,000 MG/20 ML SYR IV STA (09:50)
[2024-01-17] MEDS: ACETAMINOPHEN 1,000 MG/100 ML VIAL IV STA (09:50)
[2024-01-17 09:52] LABS: Creatinine Clr Calc Pharmacy 36.4 ml/min; Potassium 4.9 mmol/L (3.5-5.1)
[2024-01-17 09:55] LABS: Albumin Globulin Ratio 1.3 (0.9-2); BUN Creatinine Ratio 28.9 (10-20); Total Protein 6.8 gm/dl (6.0-8.3)
[2024-01-17 09:58] LABS: Prothrombin Time 11.2 Seconds (9.0-12.0)
[2024-01-17] MEDS: SODIUM CHLORIDE 0.9% 500 ML IV ONE (10:31)
[2024-01-17] MEDS: NOREPINEPHRINE/D5W 4 MG/250 ML PLCT IV SCH (10:51)
[2024-01-17] MEDS: NovoLIN-R INSULIN PER UNIT CHARGE IV STA (11:00)
[2024-01-17 11:01] LABS: Adenovirus PCR Not Detected (NotDetected); Bordetella parapertussis PCR Not Detected (NotDetected); Bordetella pertussis PCR Not Detected (NotDetected); Chlamydia pneumoniae PCR Not Detected (NotDetected); Coronavirus 229E PCR Not Detected (NotDetected); Coronavirus CoV-2 (COVID19)PCR Not Detected (NotDetected); Coronavirus HKU1 PCR Not Detected (NotDetected); Coronavirus NL63 PCR Not Detected (NotDetected); Coronavirus OC43PCR Not Detected (NotDetected); Human Metapneumovirus PCR Not Detected (NotDetected); Influenza A PCR Not Detected (NotDetected); Influenza B PCR Not Detected (NotDetected); Mycoplasma pneumoniae PCR Not Detected (NotDetected); Parainfluenza Virus 1 PCR Not Detected (NotDetected); Parainfluenza Virus 2 PCR Not Detected (NotDetected); Parainfluenza Virus 3 PCR Not Detected (NotDetected); Parainfluenza Virus 4 PCR Not Detected (NotDetected); Respiratory Syncytial VirusPCR Not Detected (NotDetected); Rhinovirus/Enterovirus PCR Not Detected (NotDetected)
[2024-01-17] MEDS: SODIUM CHLORIDE 0.9% 500 ML IV SCH (11:01)
[2024-01-17] MEDS: VANCOMYCIN HCL 2,000 MG in SODIUM CHLORIDE 0.9% 500 ML IV STA (11:02)
[2024-01-17] MEDS: STAT IV Infusion **Titration per Protocol STA (11:04)
[2024-01-17] MEDS: NOREPINEPHRINE/D5W 4 MG/250 ML IV ONE (11:04)
[2024-01-17 11:35] LABS: Appearance Urine Cloudy (Clear); Specific Gravity Urine 1.024 (1.000-1.030)
[2024-01-17 11:38] LABS: Epithelial Cell Urine 0-2 /hpf (0-2); RBC Urine >20 /hpf (0-2)
[2024-01-17 11:39] LABS: Bacteria Urine 4+ (None Seen)
--- NOTE | 2024-01-17 11:42 | Electrocardiogram Report ---
Test Reason : Blood Pressure : */* mmHG Vent. Rate : 89 BPM Atrial Rate : 89 BPM P-R Int : 200 ms QRS Dur : 186 ms QT Int : 462 ms P-R-T Axes : 18 -57 100 degrees QTcB Int : 562 ms Sinus rhythm with Premature ventricular complexes or Fusion complexes Left axis deviation Left bundle branch block Abnormal ECG When compared with ECG of 08-Jan-2024 05:54, Fusion complexes are now Present Vent. rate has increased by 31 bpm T wave inversion less evident in Lateral leads QT has lengthened Confirmed by Ananda Gamboa ([id number]) on 01/17/2024 11:42:36 AM Referred By: REFERRED SELF Confirmed By: Ananda Gamboa
[2024-01-17] MEDS ORDERED: SODIUM CHLORIDE 0.9% 100 ML IV PRN ×2 (12:08→12:35)
[2024-01-17] MEDS ORDERED: SODIUM CHLORIDE 0.9% 50 ML IV PRN ×2 (12:08→12:35)
--- NOTE | 2024-01-17 12:09 | History & Physical Report ---
<Statement entered by Alessandro Menon, DO - 01/17/24 13:47> I have seen and examined the patient and have discussed the case with the provider above. I have reviewed the advanced practitioner's documentation, and I agree with, and take responsibility for that plan of care. Patient seen and examined with VERENICE in ED. Patient is critically ill and significantly somnolent and lethargic. is at bedside and history obtained from her. Patient just discharged from [facility] yesterday after complicated hospitalization that included cardiac intervention with multiple stents. Ejection fraction 15%. That hospitalization was complicated with hematuria as well. Urology had been involved. Since he has been home he has been having significant abdominal discomfort and leakage of blood around the Mejia catheter. Physical exam: Generally: Patient is lethargic, and toxic in appearance Lungs: Decreased breath sounds bilaterally with crackles at bases CV: S1-S2 with systolic murmur, LifeVest in place Abdomen: Bladder is significantly distended. Mejia catheter in place Reviewed diagnostics Patient presents with septic shock most likely due to urinary tract infection with severe hematuria. This is in the setting of recent cardiac arrest, cardiac stent placement and ejection fraction 15%. Discussed plan of care as outlined below with VERENICE. ICU admission. Date of Service January 17, 2024 Assessment & Plan (1) Septic shock: (2) Emphysematous cystitis: (3) Acute blood loss anemia: (4) CAD (coronary artery disease): (5) S/P coronary angioplasty: (6) Severe aortic stenosis: (7) Hyperglycemia due to type 2 diabetes mellitus: Plan This is an 83-year-old male who has a significant past medical history of CAD, chronic HFrEF with EF of 15% and current LifeVest in place, LBBB, aortic valve stenosis, HTN, HLD, T2DM and history of tobacco abuse who presents to ED secondary to gross hematuria. 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 S/P PCI x 6. EF post PCI was 30%, life vest placed, moderate to severe Hospital course complicated with ABL 2/2 Gross hematuria with mejia catheter requiring CBI, Hgb at d/c was 7.8. Discharged on GDMT with entreso, aldactone, metoprolol, jardiance, asa, plavix, statin and amiodarone due to vfib arrest Presents back to ED today secondary to gross hematuria around cath site, EMS found pt lethargic, SBP 90s. Received total of 1L of IVF in ED along with current ongoing infusion of 125cc/hr. Started on empiric Vanco and cefepime. Blood and urine cultures obtained, Lactic acidosis climbing on admission to 8.0, hgb down to 6.8. Septic Shock and possible cardiogenic shock Emphysematous cystitis admit to ICU discussed with Dr. Rodrigues Plan is to transfer to [facility] when bed available, transfer initiated by ED Dr. Mooney consult cardiology, urology to be on board while in house Empiric IV cefepime and vancomycin for now pending cultures continue Norepi infusion, goal MAP 65 transfuse given hgb 6.8 and active bleeding serial bmp, lactic acid --CT abd pelvis:Mejia catheter is noted within a markedly distended urinary bladder which contains a large air-fluid level with intraluminal dependent debris/hemorrhage. Additionally, there is extensive air within the bladder wall suggestive of emphysematous cystitis with air extending into the adjacent pelvic veins, femoral veins, IVC and splenic vein.2. Small amount of portal venous gas within the left hepatic lobe. No definite pneumatosis or pneumoperitoneum.3. No bowel obstruction or bowel wall thickening.4. Bilateral mild to moderate hydroureteronephrosis secondary to the urinary bladder distention.5. Asymmetric deep tissue edema within the right proximal thigh may be on a post procedural bases. No large discrete hematoma identified. 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 Menon. Risks and benefits were explained. All questions were answered, and the was offered the opportunity to discuss with attending physician and declined. ELIGIO : baseline cr 1.0, bun/cr 48 and 1.66, ? post obstructive in setting of bladder hemorrhage vs ATN in setting of hypovolemia/shock DVT ppx: SCDS given acute bleeding FULL CODE as discussed with at bedside PCP: Mark Dispo: admit to ICU, pending transfer to [facility] when critical care bed available Pt was seen and examined in collaboration with Dr. Menon, please see addendum I spent a total of 90 minutes reviewing notes, outpatient records, labs, medication, coordinating, documenting and providing care for this patient excluding time spent in the performance of separately billed services. This includes spending 45 minutes of critical care time. History of Present Illness Chief Complaint: Gross Hematuria. Primary Care Provider: Elvis Flores MD This is an 83-year-old male who has a significant past medical history of CAD, chronic HFrEF with EF of 30% and current LifeVest in place, LBBB, aortic valve stenosis, HTN, HLD, T2DM and history of tobacco abuse who presents to ED secondary to gross hematuria. Of significance patient was recently hospitalized at [facility] on 01/07 to 01/16/2024. Patient initially presented to [facility] status post ventricular fibrillation cardiac arrest obtaining ROSC after electrical cardioversion and moderate to severe aortic stenosis. He did not recall the initial V-fib arrest. Prior to cardiac arrest was in his usual state of health. Patient's initial TTE showing EF 30 to 35% and diffuse hypokinesis in setting of previously known LBBB. Cardiac catheterization revealed multives helena coronary artery disease. He was deemed a poor candidate for CABG and therefore PCI was pursued resulting in multiple JULIET x 6. EP was also consulted given the V-fib arrest and ultimately recommended follow-up in their clinic after TAVR and repeat echocardiogram to determine if permanent ICD candidacy at that time. He was discharged home on amiodarone and a LifeVest. His hospital course was complicated with gross hematuria for which urology was consulted. He required continuous bladder irrigation and failed trial of void prior to discharge therefore Mejia remained in place at discharge with continued light hematuria. He did have acute blood loss anemia in setting of this. Patient was discharged home yesterday with his . He was in his good good spirits and tolerated the ride home. He remained to have a Mejia catheter intact draining bloody urine. states whenever they got home he had significant amount of blood overflowing around the catheter and was soaking many pads. He also had significant blood loss in the bathroom. Due to symptoms not improving she opted to bring him to ED. Patient also reported abdominal pain. In ED patient was significantly hypertensive. He met criteria for septic shock with or without cardiogenic shock. He was started on nor epi. He received IV Vanco and cefepime. Blood and urine cultures were obtained. History was mostly obtained from at bedside. Summary of cardiac cath: * "Coronary disease - hemodynamically significant * LAD diffusely disease up to 80% * pLCX 70% stenosis * Mid RCA 70% stenosis * Intervention Summary: * LAD lesion treated with 3 overlapping drug-eluting stent (2.5mm x 15mm [place] Blanco; 2.25 mm X 22 mm [place] Blanco; 2.0 mm X 18 mm [place] Blanco, prox to distal). * LCX lesion treated with 1 drug-eluting stent (2.0mm x 12mm [place] Blanco). * RCA lesion treated with 2 overlapping drug-eluting stent (2.5 mm X 26 mm [place] Blanco; 2.5 mm x 26mm [place] frontier). * Final angiographic result with 0% residual stenosis, SUELLEN 3 flow, and no evidence of" Allergies Allergy/AdvReac Type Severity Reaction Status Date / Time No Known Allergies Allergy Verified 01/07/24 19:19 Home Medications Medication Instructions Recorded Confirmed Type atorvastatin 40 mg tablet 40 mg PO QAM 12/03/18 01/17/24 History cholecalciferol (vitamin D3) 25 1,000 unit PO QAM 12/03/18 01/17/24 History mcg (1,000 unit) capsule empagliflozin 25 mg tablet 25 mg PO QAM 06/29/22 01/17/24 History (Jardiance) ascorbic acid (vitamin C) 125 mg 125 mg PO DAILY 01/07/24 01/17/24 History chewable tablet (Vitamin C) cyanocobalamin (vitamin B-12) 100 100 mcg PO DAILY 01/07/24 01/17/24 History mcg tablet glipizide 5 mg tablet, extended 5 mg PO QAM 01/07/24 01/17/24 History release 24 hr metformin 1,000 mg tablet 1,000 mg PO BID 01/07/24 01/17/24 History aspirin 81 mg chewable tablet 81 mg PO QAM #0 tabs 01/08/24 01/17/24 Rx (Children's Aspirin) amiodarone 200 mg tablet 200 mg PO DAILY 01/17/24 01/17/24 History clopidogrel 75 mg tablet 75 mg PO DAILY 01/17/24 01/17/24 History metoprolol succinate 25 mg 25 mg PO DAILY 01/17/24 01/17/24 History tablet,extended release 24 hr sacubitril 24 mg-valsartan 26 mg 1 tab PO BID 01/17/24 01/17/24 History tablet (Entresto) spironolactone 25 mg tablet 12.5 mg PO DAILY 01/17/24 01/17/24 History tamsulosin 0.4 mg capsule 0.4 mg PO HS 01/17/24 01/17/24 History Past Med/Surg History Problem List (Updated 01/17/24 @ 12:30 by Stefani Arce PA-C) Hyperglycemia due to type 2 diabetes mellitus Severe aortic stenosis S/P coronary angioplasty CAD (coronary artery disease) Septic shock Emphysematous cystitis (Acute) Generalized weakness (Acute) Anemia (Acute) Acute hypotension (Acute) Aortic valve stenosis determined by imaging Ventricular fibrillation (Acute) Respiratory failure (Acute) Cardiac arrest (Acute) Bilateral carpal tunnel syndrome Right carpal tunnel syndrome Right trigger finger got injection Vitamin D deficiency Hypocalcemia Acute blood loss anemia Anemia (Acute) GI bleed (Acute) Aortic valve sclerosis (Chronic) follows with Dr. Velasquez Diabetes mellitus, type II (Chronic) NIDDM Dyslipidemia (Chronic) HTN (hypertension) (Chronic) Medical History Aortic valve sclerosis followed with Dr Velasquez Diabetes mellitus, type 2 NIDDM History of anemia r/t GI bleed in 11/2018. EGD and x5 units of blood History of GI bleed (11/2018) Hypertension Hyperlipidemia History of COVID-29 Nov 2021 > not hospitalized Surgical History S/P carpal tunnel release (05/15/23) right History of left cataract extraction History of tooth extraction History of tonsillectomy History of esophagogastroduodenoscopy (EGD) 12/04/2018. propofol no issues. History of colonoscopy 10/2010 colonoscopy: Sigmoid diverticulosis Family History Father Diabetes Bladder cancer Mother Diabetes Other No family history of adverse response to anesthesia Social History Smoking Status: Unknown if ever smoked Tobacco Type: Cigarettes Second Hand Exposure: No; Do You Dip or Chew Tobacco: No; Hx Alcohol Use: No Hx Substance Use: No Preferred Language: Telugu Communication Ability: Effective Passenger Solicitor Required: No Beliefs That Will Affect Care: None Current Living Situation: Spouse Feels Safe at Home: Yes Assistive Devices: Walker Review of Systems Review of Systems: All systems reviewed & are unremarkable except as noted in HPI & below Physical Exam Physical Exam: please refer to Dr. Menon physical exam on his addendum Results & Data Results & Data Vital Signs (Past 12 Hours) Vital Signs Temp Pulse Pulse Resp BP BP Pulse Ox 01/17/24 11:06 36.7 C 104 H 29 H 70/48 L 98 01/17/24 11:03 66/49 L 98 01/17/24 10:36 102 H 27 H 73/54 L 100 01/17/24 10:30 102 H 26 H 84/57 L 100 01/17/24 10:15 102 H 87/60 L 100 01/17/24 10:00 111 H 25 H 79/52 L 100 01/17/24 09:50 36.7 C 113 H 35 H 79/50 L 94 01/17/24 09:49 113 H 01/17/24 09:15 93 H 31 H 120/69 100 01/17/24 09:00 93 H 31 H 99/59 L 100 01/17/24 09:00 93 H 27 H 99/59 L 100 01/17/24 08:49 90 01/17/24 08:31 88 24 99 01/17/24 08:10 88 24 114/64 99 01/17/24 08:10 01/17/24 08:10 36.6 C 88 24 114/64 100 O2 Del Method O2 Flow Rate 01/17/24 11:06 Nasal Cannula 2 01/17/24 11:03 01/17/24 10:36 01/17/24 10:30 Nasal Cannula 2 01/17/24 10:15 Nasal Cannula 2 01/17/24 10:00 01/17/24 09:50 01/17/24 09:49 01/17/24 09:15 01/17/24 09:00 Nasal Cannula 2 01/17/24 09:00 Nasal Cannula 2 01/17/24 08:49 01/17/24 08:31 Room Air 2 01/17/24 08:10 Nasal Cannula 2 01/17/24 08:10 Nasal Cannula 2 01/17/24 08:10 Nasal Cannula 2 Laboratory Results I have independently reviewed and interpreted patient's admitting labs including CBC, CMP, PTT, PT/INR, mag, resp biofire, UA and troponin. Diagnostic Findings Chest X-Ray 01/17/24 08:31 XR chest 1V portable HISTORY: 83 years-old Male Chest pain, nonspecific COMPARISON: 01/08/2024 TECHNIQUE: AP view of the chest FINDINGS: Cardiac silhouette is enlarged. No pneumothorax. Trace pleural effusions. Pulmonary vascular congestion. Numerous leads project over the chest. Bones appear grossly intact. IMPRESSION: 1. Cardiomegaly with pulmonary vascular congestion. 2. Trace pleural effusions. ACT 112: Negative or not required by law. The above report was generated using voice recognition software. It may contain grammatical, syntax or spelling errors. Electronically signed by: Murali Echeverria M.D. 01/17/2024 9:00 AM Abdomen/Pelvis CT 01/17/24 08:[address] WITH IV CONTRAST CT DOSE: 2901.2 mGy.cm HISTORY: Acutely unresponsive. Acute hypotension status post recent catheterization. hypotension TECHNIQUE: Multiaxial CT images of the abdomen and pelvis were performed following the IV administration of 120 cc of Optiray, A dose lowering technique was utilized adhering to the principles of ALARA. COMPARISON STUDY: CT chest of same day, CT abdomen and pelvis 01/07/2024 FINDINGS: Unchanged appearance of the nondisplaced bilateral anterior rib fractures which appear acute. No acute displaced fracture. Chest CT is dictated separately. Cardiomegaly with extensive coronary artery calcifications. No pneumatosis or pneumoperitoneum. There is a considerable amount of air noted within the bilateral femoral veins which also extends into the IVC and splenic vein. Linear branching lucencies are also noted within the left hepatic lobe adjacent to the falciform ligament on image 89 series 9 suggestive of portal venous gas. Unremarkable spleen, pancreas and adrenal glands. Cholelithiasis without CT evidence of acute cholecystitis. Hepatic steatosis. There is patency of the hepatic and portal veins. Symmetric mild to moderate bilateral hydroureteronephrosis with perinephric and perirenal stranding. No renal or ur eteral calculi. The urinary bladder is distended measuring up to 20 cm and contains a large air-fluid level. Complex debris/hemorrhage layers within the bladder lumen. There is extensive air within the urinary bladder lumen which also involves adjacent pelvic veins. A Mejia catheter is present which appears be in satisfactory positioning. Enlarged prostate. Atherosclerosis of the aorta with infrarenal ectasia measuring 2.7 cm. There is asymmetric stranding/deep tissue edema within the right upper thigh. No discrete hematoma identified. Mild distal esophageal wall thickening. There is no bowel obstruction or bowel wall thickening. No acute fracture. Calcification suggestive of a sequestered fragment noted within the central canal on image 252 series 9 at the level of L5-S1. IMPRESSION: 1. Mejia catheter is noted within a markedly distended urinary bladder which contains a large air-fluid level with intraluminal dependent debris/hemorrhage. Additionally, there is extensive air within the bladder wall suggestive of emphysematous cystitis with air extending into the adjacent pelvic veins, femoral veins, IVC and splenic vein. 2. Small amount of portal venous gas within the left hepatic lobe. No definite pneumatosis or pneumoperitoneum. 3. No bowel obstruction or bowel wall thickening. 4. Bilateral mild to moderate hydroureteronephrosis secondary to the urinary bladder distention. 5. Asymmetric deep tissue edema within the right proximal thigh may be on a post procedural bases. No large discrete hematoma identified. 6. Cholelithiasis. 7. Unchanged appearance of the acute bilateral anterior rib fractures which are nondisplaced. These may be secondary to prior chest compressions. 8. Additional findings as above. ACT 112: Negative or not required by law. The above report was generated using voice recognition software. It may contain grammatical, syntax or spelling errors. Electronically signed by: Murali Echeverria M.D. 01/17/2024 9:32 AM Chest CTA 01/17/24 08:38 CT angio chest PE protocol HISTORY: 83 years-old Male with hypotension, s/p cath. Acute hypotension with unresponsiveness status post recent catheterization procedure TECHNIQUE: Multiple CTA images of the chest were obtained after the intravenous administration of 120 ml Optiray. Coronal and sagittal MIPS were obtained from the axial data set and were submitted for review. All measurements were obtained according to NASCET criteria. A dose lowering technique was utilized adhering to the principles of ALARA. COMPARISON: CT abdomen and pelvis of same day, CTA chest 01/07/2024 FINDINGS: CTA: Moderate cardiomegaly. There is no pericardial effusion. Extensive coronary artery calcifications. Atherosclerosis of the thoracic aorta without aneurysm or dissection. Pulmonary artery is dilated up to 3.3 cm suggestive of pulmonary arterial hypertension. No pulmonary emboli identified. CT CHEST: No dominant thyroid nodule. Borderline enlarged mediastinal lymph nodes measuring up to 10 mm of slightly increased in size from prior. No pneumothorax, pleural effusion or lobar airspace consolidation. No overt pulmonary edema. Mild dependent subsegmental bibasilar atelectasis. Central airways are patent. Linear branching lucencies are noted within the left hepatic lobe on image [address] abdomen and pelvis is dictated separately. Mild distal esophageal wall thickening. Unchanged nondisplaced bilateral anterior rib fractures compared to the prior study. IMPRESSION: 1. Cardiomegaly with evidence of pulmonary arterial hypertension and extensive coronary artery calcifications. 2. No pulmonary emboli. 3. No pleural effusion or airspace consolidation typical for pneumonia. 4. Mild nonspecific borderline enlarged mediastinal lymph nodes. 5. Please refer to the same day CT abdomen and pelvis study for additional findings. ACT 112: Negative or not required by law. The above report was generated using voice recognition software. It may contain grammatical, syntax or spelling errors. Electronically signed by: Murali Echeverria M.D. 01/17/2024 9:[address] 01/17/24 08:38 CT OF THE HEAD WITHOUT CONTRAST CLINICAL HISTORY: Altered mental status. COMPARISON STUDY: Head CT January 07, 2024. TECHNIQUE: Helical axial images of the head were obtained without IV contrast. Automated exposure control was utilized for the study. A dose lowering technique was utilized adhering to the principles of ALARA. FINDINGS: No acute intracranial hemorrhage, midline shift or mass effect is present. The ventricular system is stable. White matter hypodensities are unchanged and favor small vessel disease. The basal cisterns are patent. No extra-axial collections are present. There are no findings to suggest acute dural sinus thrombosis or acute territorial infarct. No significant calvarial abnormalities are present. Visualized portions of the sinuses and mastoid air cells are clear. IMPRESSION: No acute intracranial findings. No change in appearance of the brain. ACT 112: Negative or not required by law. Electronically signed by: Miko Carolina M.D. 01/17/2024 9:04 AM Medications Administered Medication List Vancomycin HCl 2,000 mg/ (Sodium Chloride) 540 mls @ 200 mls/hr IV NOW STA Stop: 01/17/24 12:26 Last Admin: 01/17/24 11:02 Dose: 200 mls/hr Documented By: BS Norepinephrine Bitartrate (Levophed/D5w) 4 mg in 250 mls @ 61.493 mls/hr IV .Q4H4M ALIX; Protocol Stop: 02/16/24 10:44 Last Titration: 01/17/24 11:29 Dose: 0.2 mcg/kg/min, 68.3 mls/hr Documented By: Titration: 01/17/24 11:20 Dose: 0.18 mcg/kg/min, 61.5 mls/hr Documented By: Titration: 01/17/24 11:13 Dose: 0.09 mcg/kg/min, 30.7 mls/hr Documented By: Titration: 01/17/24 10:59 Dose: 0.07 mcg/kg/min, 23.9 mls/hr Documented By: Admin: 01/17/24 10:51 Dose: 0.05 mcg/kg/min, 17.1 mls/hr Documented By: BS Co-signed By: SRL Sodium Chloride (Nss) 500 mls @ 125 mls/hr IV .Q4H ALIX Stop: 01/17/24 14:59 Last Admin: 01/17/24 11:01 Dose: 125 mls/hr Documented By: BS Discontinued Medications Cefepime HCl (Maxipime 2000mg) 2,000 mg in 20 mls @ 5 mls/min IV NOW STA; Protocol Stop: 01/17/24 09:16 Last Admin: 01/17/24 09:50 Dose: 5 mls/min Documented By: NILA Acetaminophen (Ofirmev) 1,000 mg in 100 mls @ 400 mls/hr IV NOW STA Stop: 01/17/24 09:39 Last Infusion: 01/17/24 10:05 Dose: Infused Documented By: Admin: 01/17/24 09:50 Dose: 400 mls/hr Documented By: SRNghia Sodium Chloride (Nss) 500 mls @ 999 mls/hr IV .Q31M ONE Stop: 01/17/24 10:29 Last Infusion: 01/17/24 11:23 Dose: Infused Documented By: Admin: 01/17/24 10:31 Dose: 999 mls/hr Documented By: NILA Insulin Human Regular (Novolin-R Insulin Per Unit Charge) 9 units IV NOW STA Stop: 01/17/24 10:45 Last Admin: 01/17/24 11:00 Dose: 9 units Documented By: BENNY Co-signed By: NILA Ioversol (Optiray 320 125ml) 120 ml IV ONCE ONE Stop: 01/17/24 08:52 Last Admin: 01/17/24 08:51 Dose: 120 ml Documented By: DEREK Miscellaneous (Stat Iv Infusion Titration Per Protocol) 1 each N/A NOW STA Stop: 01/17/24 10:41 Last Admin: 01/17/24 11:04 Dose: Not Given Documented By: BENNY Norepinephrine Bitartrate (Norepinephrine/D5w 4 Mg/250 Ml) Confirm Administered Dose 4 mg IV .STK-MED ONE Stop: 01/17/24 10:35 Last Admin: 01/17/24 11:04 Dose: Not Given Documented By: BENNY ECG Additional Comments: I have independently reviewed and interpreted patient's admitting EKG which revealed: 89 bpm, qtc 562ms, NSR with PVC/fusion complex, LBBB COVID-19 Results Results COVID-19 Adm Lab Results: RBC 2.95 M/uL (4.70-6.10) L 01/17/24 WBC 18.37 K/ul (4.8-10.8) H 01/17/24 Hgb 6.8 g/dl (14.0-18.0) L* 01/17/24 Hct 22.3 % (42.0-52.0) L 01/17/24 Plt Count 249 K/uL (130-400) 01/17/24 Neutrophils (%) (Auto) 87.7 % 01/17/24 Lymphocytes (%) (Auto) 2.1 % 01/17/24 Monocytes # (Auto) 1.62 K/uL (0.11-0.59) H 01/17/24 Eosinophils # (Auto) 0.00 K/uL (0.00-0.50) 01/17/24 Immature Granulocyte % (Auto) 1.2 % 01/17/24 Neutrophils # (Auto) 16.11 K/uL (1.40-6.50) H 01/17/24 Lymphocytes # (Auto) 0.39 K/uL (1.20-3.40) L 01/17/24 Monocytes # (Auto) 1.62 K/uL (0.11-0.59) H 01/17/24 Eosinophils # (Auto) 0.00 K/uL (0.00-0.50) 01/17/24 Basophils # (Auto) 0.03 K/uL (0.00-0.20) 01/17/24 Immature Granulocyte # (Auto) 0.22 K/uL (0.01-0.20) H 01/16 Na 131 mmol/L (136-145) L 01/17/24 K 4.9 mmol/L (3.5-5.1) 01/17/24 Cl 98 mmol/L (98-107) 01/17/24 CO2 15 mmol/L (21-32) L 01/17/24 Anion Gap 18 (3-11) H 01/17/24 BUN 48 mg/dl (6-23) H 01/17/24 Creatinine 1.66 mg/dl (0.6-1.4) H 01/17/24 BUN/Creatinine Ratio 28.9 (10-20) H 01/17/24 Glucose Level 459 mg/dl (70-99(Fasting)) H* 01/17/24 Ca 8.7 mg/dl (8.6-10.3) 01/17/24 Phosphorus Level Pending 01/17/24 Total Bilirubin 1.0 mg/dl (0.2-1.0) 01/17/24 AST/SGOT 13 U/L (13-39) 01/17/24 ALT/SGPT 11 U/L (7-52) 01/17/24 Alkaline Phosphatase 59 U/L (34-104) 01/17/24 Total Protein 6.8 gm/dl (6.0-8.3) 01/17/24 Albumin 3.8 gm/dl (3.4-5.0) 01/17/24 Globulin 3.0 gm/dl (2.5-4.0) 01/17/24 Albumin/Globulin Ratio 1.3 (0.9-2) 01/17/24 Procalcitonin 3.77 ng/ml (0-0.5) H 01/17/24 INR 1.0 (0.9-1.1) 01/17/24 Adenovirus (PCR) Not Detected (NotDetected) 01/17/24 B. parapertussis DNA (PCR) Not Detected (NotDetected) 08/04 B. pertussis DNA (PCR) Not Detected (NotDetected) 01/17/24 C. pneumoniae DNA (PCR) Not Detected (NotDetected) 4 Coronavirus Type OC43 (PCR) Not Detected (NotDetected) 08/04 Coronavirus Type HKU1 (PCR) Not Detected (NotDetected) 08/04 Coronavirus Type 229E (PCR) Not Detected (NotDetected) 08/04 COVID-19 PCR Not Detected (NotDetected) 01/17/24 Coronavirus Type NL63 (PCR) Not Detected (NotDetected) 08/04 Human Metapneumovirus (PCR) Not Detected (NotDetected) 08/04 Influenza Virus Type A (PCR) Not Detected (NotDetected) Influenza Virus Type B (PCR) Not Detected (NotDetected) M. pneumoniae (PCR) Not Detected (NotDetected) 01/17/24 Parainfluenza Type 1 (PCR) Not Detected (NotDetected) 08/04 Parainfluenza Type 2 (PCR) Not Detected (NotDetected) 08/04 Parainfluenza Type 3 (PCR) Not Detected (NotDetected) 08/04 Parainfluenza Type 4 (PCR) Not Detected (NotDetected) 08/04 RSV (PCR) Not Detected (NotDetected) 01/17/24 Enterovirus/Rhinovirus (PCR) Not Detected (NotDetected) Chest X-Ray 01/17/24 Code Status & VTE Plan Code Status FULL CODE VTE Prophylaxis Plan VTE Prophylaxis will be ordered: Yes
[2024-01-17] MEDS ORDERED: PHARMACY GLYCEMIC MGMT CONSULT PRN (12:22)
[2024-01-17] MEDS ORDERED: STAT IV Infusion **Titration per Protocol STA (12:22)
[2024-01-17 12:25] LABS: Base Excess VBG -14.1 mEq/L; HCO3 VBG 11 mmol/L; Oxygen Saturation VBG 63.1 %; PCO2 VBG 26 mmHg (38-50); PO2 VBG 39 mmHg; pH VBG 7.25 (7.36-7.41)
[2024-01-17] MEDS ORDERED: PENDING 1/2NSS+20mEq KCL IVF SCH (12:30)
[2024-01-17 12:36] LABS: Hematocrit (blood only) 22.3 % (42.0-52.0); Hemoglobin 6.8 g/dl (14.0-18.0)
[2024-01-17] MEDS ORDERED: GLUCOSE 10 TAB/TUBE PO PRN (12:45)
[2024-01-17] MEDS ORDERED: DEXTROSE 50% 50 ML SYRINGE IV PRN (12:45)
[2024-01-17] MEDS ORDERED: GLUCAGON FOR INJ 1 MG VIAL SQ PRN (12:45)
[2024-01-17] MEDS ORDERED: GLUCOSE 40% GEL 15 GM TUBE PO PRN (12:45)
[2024-01-17] MEDS ORDERED: CARBOHYDRATES FOR HYPOGLYCEMIA PO PRN (12:45)
[2024-01-17] MEDS ORDERED: VANCOMYCIN CONSULT ACTIVE PRN (12:56)
[2024-01-17] MEDS ORDERED: ICU Protocol for HYPERglycemia SCH (12:56)
[2024-01-17 13:22] LABS: Calcium 8.3 mg/dl (8.6-10.3); Magnesium 1.9 mg/dl (1.7-2.4); Potassium 4.1 mmol/L (3.5-5.1)
[2024-01-17 13:30] LABS: BUN Creatinine Ratio 27.4 (10-20); Creatinine Clr Calc Pharmacy 32.4 ml/min; Phosphorus 4.4 mg/dl (2.5-4.9)
--- NOTE | 2024-01-17 13:30 | Urology Consultation ---
Date of Consultation January 17, 2024 Assessment & Plan (1) Hematuria: (2) Emphysematous cystitis: Plan 83-year-old male presenting the emergency department today with a poorly draining catheter and gross hematuria. He recently was hospitalized at [facility] from 01/08/2024 to 01/16/2024 due to coronary artery disease and severe aortic stenosis. He had previously had a cardiac arrest as an outpatient. A catheter was placed there for gross hematuria he required CBI and was discharged home with a catheter and a LifeVest. Catheter balloon was deflated and advanced to ensure appropriate positioning. Reinflated with 20 cc of sterile water. Catheter was irrigated with sterile water with minimal return of clot. This flushed easily so I think the catheter is patent and draining appropriately now. His abdominal exam revealed no suprapubic distention Nursing can irrigate as needed No indication for CBI at this time Continue antibiotics and follow-up cultures Catheter should remain for at least 2 weeks and patient may require repeat imaging before planned catheter removal Urology to follow peripherally History of Present Illness Attending Physician: Alessandro Menon DO History of Present Illness 83-year-old male presenting the emergency department today with a poorly draining catheter and gross hematuria. He recently was hospitalized at [facility] from 01/08/2024 to 01/16/2024 due to coronary artery disease and severe aortic stenosis. He had previously had a cardiac arrest as an outpatient. A catheter was placed there for gross hematuria he required CBI and was discharged home with a catheter and a LifeVest. On presentation today he was hypotensive with a blood pressure of 79/50 and tachycardic in the low 100s. He was also tachypneic. Labs showed a white blood cell count of 18.3, hemoglobin of 8.2 with a recheck 6.8. Urinalysis was grossly positive. He had a CT scan performed which I independently reviewed and showed mild bilateral hydronephrosis with significant air in the bladder lumen as well as in the bladder wall indicating emphysematous cystitis. Did not appear this catheter was completely draining. Air extended into the adjacent pelvic veins femoral veins IVC and splenic vein. [facility] called and they refused the transfer. He was started on cefepime. Urology was consulted. Patient is in the ICU on 0.2 of norepinephrine. Allergies Allergy/AdvReac Type Severity Reaction Status Date / Time No Known Allergies Allergy Verified 01/07/24 19:19 Home Medications Medication Instructions Recorded Confirmed Type atorvastatin 40 mg tablet 40 mg PO QAM 12/03/18 01/17/24 History cholecalciferol (vitamin D3) 25 1,000 unit PO QAM 12/03/18 01/17/24 History mcg (1,000 unit) capsule empagliflozin 25 mg tablet 25 mg PO QAM 06/29/22 01/17/24 History (Jardiance) ascorbic acid (vitamin C) 125 mg 125 mg PO DAILY 01/07/24 01/17/24 History chewable tablet (Vitamin C) cyanocobalamin (vitamin B-12) 100 100 mcg PO DAILY 01/07/24 01/17/24 History mcg tablet glipizide 5 mg tablet, extended 5 mg PO QAM 01/07/24 01/17/24 History release 24 hr metformin 1,000 mg tablet 1,000 mg PO BID 01/07/24 01/17/24 History aspirin 81 mg chewable tablet 81 mg PO QAM #0 tabs 01/08/24 01/17/24 Rx ([facility]in) amiodarone 200 mg tablet 200 mg PO DAILY 01/17/24 01/17/24 History clopidogrel 75 mg tablet 75 mg PO DAILY 01/17/24 01/17/24 History metoprolol succinate 25 mg 25 mg PO DAILY 01/17/24 01/17/24 History tablet,extended release 24 hr sacubitril 24 mg-valsartan 26 mg 1 tab PO BID 01/17/24 01/17/24 History tablet (Entresto) spironolactone 25 mg tablet 12.5 mg PO DAILY 01/17/24 01/17/24 History tamsulosin 0.4 mg capsule 0.4 mg PO HS 01/17/24 01/17/24 History Patient History Medical History Aortic valve sclerosis followed with Dr Velasquez Diabetes mellitus, type 2 NIDDM History of anemia r/t GI bleed in 11/2018. EGD and x5 units of blood History of GI bleed (11/2018) Hypertension Hyperlipidemia History of COVID-29 Nov 2021 > not hospitalized Surgical History S/P carpal tunnel release (05/15/23) right History of left cataract extraction History of tooth extraction History of tonsillectomy History of esophagogastroduodenoscopy (EGD) 12/04/2018. propofol no issues. History of colonoscopy 10/2010 colonoscopy: Sigmoid diverticulosis Family History Father Diabetes Bladder cancer Mother Diabetes Other No family history of adverse response to anesthesia Social History Smoking Status: Unknown if ever smoked Tobacco Type: Cigarettes Second Hand Exposure: No; Do You Dip or Chew Tobacco: No; Hx Alcohol Use: No Hx Substance Use: No Preferred Language: Finnish Communication Ability: Effective Brake Holder Required: No Beliefs That Will Affect Care: Buddhism Current Living Situation: Spouse Feels Safe at Home: Yes Assistive Devices: Walker Physical Exam Physical Exam: General: Alert and oriented, no acute distress HEENT: Normocephalic, mucous membranes moist Pulmonary: Nonlabored respirations Abdomen: Nondistended : 22 [place]ic three-way catheter, Draining maroon urine Extremities: Moves all 4 spontaneously Neuro: No gross deficits Skin: Warm, dry, no rashes noted Results & Data Vital Signs (Past 12 Hours) Vital Signs Temp Pulse Pulse Resp BP BP Pulse Ox 01/17/24 13:13 36.7 C 94 H 20 110/55 L 100 01/17/24 12:45 93 H 11 L 01/17/24 12:30 93 H 23 98 01/17/24 12:30 111/56 L 01/17/24 12:30 111/56 L 01/17/24 12:25 111/58 L 01/17/24 12:25 111/58 L 01/17/24 12:25 111/58 L 01/17/24 12:20 112/61 01/17/24 12:15 94 H 22 99 01/17/24 12:15 111/61 01/17/24 12:15 111/61 01/17/24 12:06 93 H 24 98 01/17/24 12:05 61 01/17/24 12:05 01/17/24 12:05 112/61 97 01/17/24 12:00 97 H 116/62 01/17/24 11:54 100 H 01/17/24 11:40 110/64 94 01/17/24 11:40 110/64 01/17/24 11:35 99 H 99/64 L 01/17/24 11:35 99/64 L 01/17/24 11:30 83/58 L 01/17/24 11:21 108 H 28 H 67/48 L 98 01/17/24 11:19 105 H 26 H 72/50 L 01/17/24 11:18 108 H 28 H 66/48 L 98 01/17/24 11:06 36.7 C 104 H 29 H 70/48 L 98 01/17/24 11:03 66/49 L 98 01/17/24 10:36 102 H 27 H 73/54 L 100 01/17/24 10:30 102 H 26 H 84/57 L 100 01/17/24 10:15 102 H 87/60 L 100 01/17/24 10:00 111 H 25 H 79/52 L 100 01/17/24 09:50 36.7 C 113 H 35 H 79/50 L 94 01/17/24 09:49 113 H 01/17/24 09:15 93 H 31 H 120/69 100 01/17/24 09:00 93 H 31 H 99/59 L 100 01/17/24 09:00 93 H 27 H 99/59 L 100 01/17/24 08:49 90 01/17/24 08:31 88 24 99 01/17/24 08:10 88 24 114/64 99 01/17/24 08:10 01/17/24 08:10 36.6 C 88 24 114/64 100 O2 Del Method O2 Flow Rate 01/17/24 13:13 5 01/17/24 12:45 01/17/24 12:30 01/17/24 12:30 01/17/24 12:30 01/17/24 12:25 01/17/24 12:25 01/17/24 12:25 01/17/24 12:20 01/17/24 12:15 01/17/24 12:15 01/17/24 12:15 01/17/24 12:06 01/17/24 12:05 01/17/24 12:05 01/17/24 12:05 01/17/24 12:00 01/17/24 11:54 01/17/24 11:40 01/17/24 11:40 01/17/24 11:35 01/17/24 11:35 01/17/24 11:30 01/17/24 11:21 01/17/24 11:19 01/17/24 11:18 01/17/24 11:06 Nasal Cannula 2 01/17/24 11:03 01/17/24 10:36 01/17/24 10:30 Nasal Cannula 2 01/17/24 10:15 Nasal Cannula 2 01/17/24 10:00 01/17/24 09:50 01/17/24 09:49 01/17/24 09:15 01/17/24 09:00 Nasal Cannula 2 01/17/24 09:00 Nasal Cannula 2 01/17/24 08:49 01/17/24 08:31 Room Air 2 01/17/24 08:10 Nasal Cannula 2 01/17/24 08:10 Nasal Cannula 2 01/17/24 08:10 Nasal Cannula 2 PG Care Time/CCT Total # of Minutes Spent Total Time Spent with Patient: Total time spent is greater than 50% in coordination of care (as documented) at patient's floor/unit and/or counseling patient: Coding Level of Care Code 53439 INT INP/OBS CARE 2/55MIN Diagnoses Hematuria R31.9 Emphysematous cystitis N30.80
--- NOTE | 2024-01-17 13:48 | Cardiology Consultation ---
Date of Consultation January 17, 2024 Assessment & Plan (1) Acute blood loss anemia: (2) Hematuria: (3) Severe aortic stenosis: (4) S/P coronary angioplasty: Plan Complex 83-year-old male with recent discharge day prior to this current admission from [facility] after transfer following [id number] cardiac arrest. 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 Patient presented with acute acute lethargy, hypotension and weakness with marked anemia. Findings consistent with mixed etiology cardiac and noncardiogenic shock. Contributing factors include blood loss anemia, meds, possible sepsis Patient on pressors with reasonable blood pressure and heart rate. Exam not reflective of acute volume overload Transfusion ongoing Recommendations: Unfortunately will require dual plate antiplatelet therapy given multivessel coronary stenting Would transfuse and taper pressors as blood pressure allows Hold Entresto, spironolactone History of Present Illness Reason for Consultation: Mixed cardiac and noncardiac shock/Hypotension [facility]: Alessandro Menon DO History of Present Illness Patient is an 83-year-old female with very complex recent history. Initially presented to [facility] 01/07/2024 center following [id number] cardiac arrest with successful defibrillation for presenting rhythm of V-fib. Transfer to [facility]. Underlying medical issues include 1. Calcific aortic stenosis 2. Chronic left bundle branch block 3. Severe multivessel coronary disease by cardiac catheterization 01/10/2024 ultimately undergone multivessel coronary invention on 01/13/2024 including 3 overlapping stents to the left anterior descending single stent to left circumflex and 2 overlapping stents to the right coronary artery all drug- eluting 4. In hospital observed anemia and hematuria Discharge to home on 01/16/2024 . Difficulty with hematuria prior to discharge as well as small clots in [place]. Started on Entresto on 01/14/2024 as part of guideline directed medical therapy Last evening marked difficulties with urination at home with indwelling [place] catheter and leak around catheter as well as bloody urine. Today lethargic and minimally responsive with EMT summoned. Initially hypotensive on assessment and received 1 unit transfusion and route to hospital. Begun on pressors on ER evaluation for mixed noncardiac and cardiogenic shock Referred now for further evaluation Patient lethargic and unable add additional information to history. Currently receiving second unit of packed red cells, hemoglobin 6.8 after First unit packed red cells. Allergies Allergy/AdvReac Type Severity Reaction Status Date / Time No Known Allergies Allergy Verified 01/07/24 19:19 Home Medications Medication Instructions Recorded Confirmed Type atorvastatin 40 mg tablet 40 mg PO QAM 12/03/18 01/17/24 History cholecalciferol (vitamin D3) 25 1,000 unit PO QAM 12/03/18 01/17/24 History mcg (1,000 unit) capsule empagliflozin 25 mg tablet 25 mg PO QAM 06/29/22 01/17/24 History (Jardiance) ascorbic acid (vitamin C) 125 mg 125 mg PO DAILY 01/07/24 01/17/24 History chewable tablet (Vitamin C) cyanocobalamin (vitamin B-12) 100 100 mcg PO DAILY 01/07/24 01/17/24 History mcg tablet glipizide 5 mg tablet, extended 5 mg PO QAM 01/07/24 01/17/24 History release 24 hr metformin 1,000 mg tablet 1,000 mg PO BID 01/07/24 01/17/24 History aspirin 81 mg chewable tablet 81 mg PO QAM #0 tabs 01/08/24 01/17/24 Rx ([facility] Aspirin) amiodarone 200 mg tablet 200 mg PO DAILY 01/17/24 01/17/24 History clopidogrel 75 mg tablet 75 mg PO DAILY 01/17/24 01/17/24 History metoprolol succinate 25 mg 25 mg PO DAILY 01/17/24 01/17/24 History tablet,extended release 24 hr sacubitril 24 mg-valsartan 26 mg 1 tab PO BID 01/17/24 01/17/24 History tablet (Entresto) spironolactone 25 mg tablet 12.5 mg PO DAILY 01/17/24 01/17/24 History tamsulosin 0.4 mg capsule 0.4 mg PO HS 01/17/24 01/17/24 History Patient History Medical History Aortic valve sclerosis followed with Dr Velasquez Diabetes mellitus, type 2 NIDDM History of anemia r/t GI bleed in 11/2018. EGD and x5 units of blood History of GI bleed (11/2018) Hypertension Hyperlipidemia History of COVID-29 Nov 2021 > not hospitalized Surgical History S/P carpal tunnel release (05/15/23) right History of left cataract extraction History of tooth extraction History of tonsillectomy History of esophagogastroduodenoscopy (EGD) 12/04/2018. propofol no issues. History of colonoscopy 10/2010 colonoscopy: Sigmoid diverticulosis Family History Father Diabetes Bladder cancer Mother Diabetes Other No family history of adverse response to anesthesia Social History Smoking Status: Unknown if ever smoked Tobacco Type: Cigarettes Second Hand Exposure: No; Do You Dip or Chew Tobacco: No; Hx Alcohol Use: No Hx Substance Use: No Preferred Language: Hong Konger Communication Ability: Effective Cleaner Assistant Required: No Beliefs That Will Affect Care: None Current Living Situation: Spouse Feels Safe at Home: Yes Assistive Devices: Hearing Aid - Bilateral and Walker Review of Systems Review of Systems: Unobtainable due to cognitive status Physical Exam Constitutional: + ill appearing and + lethargic Eyes: PERRL, conjunctivae normal, anicteric sclerae ENMT: external ear and nose normal, oropharynx normal Neck: trachea midline, no thyromegaly Respiratory: no respiratory distress and no labored breathing Cardiovascular: Rate/Rhythm: regular rate and regular rhythm Heart Sounds: + murmur (Grade 2 over 6 systolic) Vessels: no JVD Extremities: no edema Gastrointestinal (Abdomen): normal bowel sounds, soft, nontender, no hepatosplenomegaly Musculoskeletal: Head/Neck/Chest: head atraumatic Results & Data Vital Signs (Past 12 Hours) Vital Signs Temp Pulse Pulse Resp BP BP Pulse Ox 01/17/24 13:33 88 20 105/55 L 100 01/17/24 13:21 88 20 100 01/17/24 13:13 36.7 C 94 H 20 110/55 L 100 01/17/24 13:00 90 21 100 01/17/24 12:47 110/57 L 01/17/24 12:47 110/57 L 01/17/24 12:45 93 H 11 L 01/17/24 12:30 93 H 23 98 01/17/24 12:30 111/56 L 01/17/24 12:30 111/56 L 01/17/24 12:25 111/58 L 01/17/24 12:25 111/58 L 01/17/24 12:25 111/58 L 01/17/24 12:20 112/61 01/17/24 12:15 94 H 22 99 01/17/24 12:15 111/61 01/17/24 12:15 111/61 01/17/24 12:06 93 H 24 98 01/17/24 12:05 112/61 01/17/24 12:05 112/61 01/17/24 12:05 112/61 97 01/17/24 12:00 97 H 116/62 01/17/24 11:54 100 H 01/17/24 11:40 110/64 94 01/17/24 11:40 110/64 01/17/24 11:35 99 H 99/64 L 01/17/24 11:35 99/64 L 01/17/24 11:30 83/58 L 01/17/24 11:21 108 H 28 H 67/48 L 98 01/17/24 11:19 105 H 26 H 72/50 L 01/17/24 11:18 108 H 28 H 66/48 L 98 01/17/24 11:06 36.7 C 104 H 29 H 70/48 L 98 01/17/24 11:03 66/49 L 98 01/17/24 10:36 102 H 27 H 73/54 L 100 01/17/24 10:30 102 H 26 H 84/57 L 100 01/17/24 10:15 102 H 87/60 L 100 01/17/24 10:00 111 H 25 H 79/52 L 100 01/17/24 09:50 36.7 C 113 H 35 H 79/50 L 94 01/17/24 09:49 113 H 01/17/24 09:15 93 H 31 H 120/69 100 01/17/24 09:00 93 H 31 H 99/59 L 100 01/17/24 09:00 93 H 27 H 99/59 L 100 01/17/24 08:49 90 01/17/24 08:31 88 24 99 01/17/24 08:10 88 24 114/64 99 01/17/24 08:10 01/17/24 08:10 36.6 C 88 24 114/64 100 O2 Del Method O2 Flow Rate 01/17/24 13:33 5 01/17/24 13:21 01/17/24 13:13 5 01/17/24 13:00 01/17/24 12:47 01/17/24 12:47 01/17/24 12:45 01/17/24 12:30 01/17/24 12:30 01/17/24 12:30 01/17/24 12:25 01/17/24 12:25 01/17/24 12:25 01/17/24 12:20 01/17/24 12:15 01/17/24 12:15 01/17/24 12:15 01/17/24 12:06 01/17/24 12:05 01/17/24 12:05 01/17/24 12:05 01/17/24 12:00 01/17/24 11:54 01/17/24 11:40 01/17/24 11:40 01/17/24 11:35 01/17/24 11:35 01/17/24 11:30 01/17/24 11:21 01/17/24 11:19 01/17/24 11:18 01/17/24 11:06 Nasal Cannula 2 01/17/24 11:03 01/17/24 10:36 01/17/24 10:30 Nasal Cannula 2 01/17/24 10:15 Nasal Cannula 2 01/17/24 10:00 01/17/24 09:50 01/17/24 09:49 01/17/24 09:15 01/17/24 09:00 Nasal Cannula 2 01/17/24 09:00 Nasal Cannula 2 01/17/24 08:49 01/17/24 08:31 Room Air 2 01/17/24 08:10 Nasal Cannula 2 01/17/24 08:10 Nasal Cannula 2 01/17/24 08:10 Nasal Cannula 2 Laboratory Results Laboratory Results - last 24 hr 01/17/24 01/17/24 01/17/24 08:42 08:44 08:45 WBC 18.37 H RBC 2.95 L Hgb 8.2 L POC Hgb 8.8 L Hct 26.6 L POC Hct 26 L MCV 90.2 MCH 27.8 MCHC 30.8 L RDW Std Deviation 47.3 H RDW Coeff of Erendira 15.1 H Plt Count 249 MPV 9.8 Immature Gran % (Auto) 1.2 Neut % (Auto) 87.7 Lymph % (Auto) 2.1 [place] % (Auto) 8.8 Eos % (Auto) 0.0 Baso % (Auto) 0.2 Neut # (Auto) 16.11 H Lymph # (Auto) 0.39 L [place] # (Auto) 1.62 H Eos # (Auto) 0.00 Baso # (Auto) 0.03 Immature Gran # (Auto) 0.22 H PT 11.2 INR 1.0 VBG pH VBG pCO2 VBG pO2 VBG HCO3 VBG O2 Saturation VBG Base Excess POC Sodium 131 L Sodium 131 L POC Potassium 4.9 Potassium 4.9 POC Chloride 102 Chloride 98 Carbon Dioxide 15 L POC Total CO2 16 L Anion Gap 18 H POC Anion Gap 19.0 POC BUN 49 H BUN 48 H Creatinine 1.66 H POC Creatinine 1.7 H Est Cr Clr Drug Dosing 36.4 eGFR 40.40 BUN/Creatinine Ratio 28.9 H Glucose 459 H* POC Glucose POC Glucose (other) 437 H* Lactate Calcium 8.7 POC Ioniz Calcium Windy 0.98 L Phosphorus Magnesium Total Bilirubin 1.0 AST 13 ALT 11 Alkaline Phosphatase 59 Troponin I High Sens 23.9 H Total Protein 6.8 Albumin 3.8 Globulin 3.0 Albumin/Globulin Ratio 1.3 Lipase 60 Procalcitonin 3.77 H Urine Color Urine Appearance Urine pH Ur Specific [place] Urine Protein Urine Glucose (UA) Urine Ketones Urine Blood Urine Nitrite Urine Bilirubin Urine Urobilinogen Ur Leukocyte Esterase Urine RBC Urine WBC Ur Epithelial Cells Urine Bacteria Nasal Screen MRSA (PCR) Adenovirus (PCR) B. pertussis DNA (PCR) B.parapertussis DNA PCR C. pneumoniae DNA (PCR) Coronavirus OC43 (PCR) Coronavirus HKU1 (PCR) Coronavirus 229E (PCR) SARS-CoV-2 (PCR) Coronavirus NL63 (PCR) Human Metapneumovir PCR Influenza Type A (PCR) Influenza Type B (PCR) M. pneumoniae (PCR) Parainfluenza 1 (PCR) Parainfluenza 2 (PCR) Parainfluenza 3 (PCR) Parainfluenza 4 (PCR) RSV (PCR) Entero/Rhino (PCR) Blood Type O Negative Antibody Screen NEGATIVE Crossmatch See Detail 01/17/24 01/17/24 01/17/24 10:16 11:23 11:36 WBC RBC Hgb POC Hgb Hct POC Hct MCV MCH MCHC RDW Std Deviation RDW Coeff of Erendira Plt Count MPV Immature Gran % (Auto) Neut % (Auto) Lymph % (Auto) [place] % (Auto) Eos % (Auto) Baso % (Auto) Neut # (Auto) Lymph # (Auto) [place] # (Auto) Eos # (Auto) Baso # (Auto) Immature Gran # (Auto) PT INR VBG pH VBG pCO2 VBG pO2 VBG HCO3 VBG O2 Saturation VBG Base Excess POC Sodium Sodium POC Potassium Potassium POC Chloride Chloride Carbon Dioxide POC Total CO2 Anion Gap POC Anion Gap POC BUN BUN Creatinine POC Creatinine Est Cr Clr Drug Dosing eGFR BUN/Creatinine Ratio Glucose POC Glucose 468 H* POC Glucose (other) Lactate 6.3 H* Calcium POC Ioniz Calcium Windy Phosphorus Magnesium Total Bilirubin AST ALT Alkaline Phosphatase Troponin I High Sens 38.5 H D Total Protein Albumin Globulin Albumin/Globulin Ratio Lipase Procalcitonin Urine Color Urine Appearance Urine pH Ur Specific [place] Urine Protein Urine Glucose (UA) Urine Ketones Urine Blood Urine Nitrite Urine Bilirubin Urine Urobilinogen Ur Leukocyte Esterase Urine RBC Urine WBC Ur Epithelial Cells Urine Bacteria Nasal Screen MRSA (PCR) Adenovirus (PCR) B. pertussis DNA (PCR) B.parapertussis DNA PCR C. pneumoniae DNA (PCR) Coronavirus OC43 (PCR) Coronavirus HKU1 (PCR) Coronavirus 229E (PCR) SARS-CoV-2 (PCR) Coronavirus NL63 (PCR) Human Metapneumovir PCR Influenza Type A (PCR) Influenza Type B (PCR) M. pneumoniae (PCR) Parainfluenza 1 (PCR) Parainfluenza 2 (PCR) Parainfluenza 3 (PCR) Parainfluenza 4 (PCR) RSV (PCR) Entero/Rhino (PCR) Blood Type Antibody Screen Crossmatch 01/17/24 01/17/24 01/17/24 12:12 12:16 12:55 WBC RBC Hgb 6.8 L* POC Hgb Hct 22.3 L POC Hct MCV MCH MCHC RDW Std Deviation RDW Coeff of Erendira Plt Count MPV Immature Gran % (Auto) Neut % (Auto) Lymph % (Auto) [place] % (Auto) Eos % (Auto) Baso % (Auto) Neut # (Auto) Lymph # (Auto) [place] # (Auto) Eos # (Auto) Baso # (Auto) Immature Gran # (Auto) PT INR VBG pH 7.25 L 7.27 L VBG pCO2 26 L VBG pO2 39 VBG HCO3 11 VBG O2 Saturation 63.1 VBG Base Excess -14.1 POC Sodium Sodium 133 L POC Potassium Potassium 4.1 POC Chloride Chloride 101 Carbon Dioxide 15 L POC Total CO2 Anion Gap 17 H POC Anion Gap POC BUN BUN 51 H Creatinine 1.86 H POC Creatinine Est Cr Clr Drug Dosing 32.4 eGFR 35.24 BUN/Creatinine Ratio 27.4 H Glucose 402 H* POC Glucose 427 H* POC Glucose (other) Lactate 8.0 H* Calcium 8.3 L POC Ioniz Calcium Windy Phosphorus 4.4 Magnesium 1.9 Total Bilirubin AST ALT Alkaline Phosphatase Troponin I High Sens Total Protein Albumin Globulin Albumin/Globulin Ratio Lipase Procalcitonin Urine Color Urine Appearance Urine pH Ur Specific [place] Urine Protein Urine Glucose (UA) Urine Ketones Urine Blood Urine Nitrite Urine Bilirubin Urine Urobilinogen Ur Leukocyte Esterase Urine RBC Urine WBC Ur Epithelial Cells Urine Bacteria Nasal Screen MRSA (PCR) Adenovirus (PCR) B. pertussis DNA (PCR) B.parapertussis DNA PCR C. pneumoniae DNA (PCR) Coronavirus OC43 (PCR) Coronavirus HKU1 (PCR) Coronavirus 229E (PCR) SARS-CoV-2 (PCR) Coronavirus NL63 (PCR) Human Metapneumovir PCR Influenza Type A (PCR) Influenza Type B (PCR) M. pneumoniae (PCR) Parainfluenza 1 (PCR) Parainfluenza 2 (PCR) Parainfluenza 3 (PCR) Parainfluenza 4 (PCR) RSV (PCR) Entero/Rhino (PCR) Blood Type Antibody Screen Crossmatch 01/17/24 Unknown WBC RBC Hgb POC Hgb Hct POC Hct MCV MCH MCHC RDW Std Deviation RDW Coeff of Erendira Plt Count MPV Immature Gran % (Auto) Neut % (Auto) Lymph % (Auto) [place] % (Auto) Eos % (Auto) Baso % (Auto) Neut # (Auto) Lymph # (Auto) [place] # (Auto) Eos # (Auto) Baso # (Auto) Immature Gran # (Auto) PT INR VBG pH VBG pCO2 VBG pO2 VBG HCO3 VBG O2 Saturation VBG Base Excess POC Sodium Sodium POC Potassium Potassium POC Chloride Chloride Carbon Dioxide POC Total CO2 Anion Gap POC Anion Gap POC BUN BUN Creatinine POC Creatinine Est Cr Clr Drug Dosing eGFR BUN/Creatinine Ratio Glucose POC Glucose POC Glucose (other) Lactate Calcium POC Ioniz Calcium Windy Phosphorus Magnesium Total Bilirubin AST ALT Alkaline Phosphatase Troponin I High Sens Total Protein Albumin Globulin Albumin/Globulin Ratio Lipase Procalcitonin Urine Color See Comment Urine Appearance Cloudy A Urine pH Not Reportable Ur Specific [place] 1.024 Urine Protein Not Reportable Urine Glucose (UA) Not Reportable Urine Ketones Not Reportable Urine Blood Not Reportable Urine Nitrite Not Reportable Urine Bilirubin Not Reportable Urine Urobilinogen Not Reportable Ur Leukocyte Esterase Not Reportable Urine RBC >20 H Urine WBC 11-20 H Ur Epithelial Cells 0-2 Urine Bacteria 4+ H Nasal Screen MRSA (PCR) Pending Adenovirus (PCR) Not Detected B. pertussis DNA (PCR) Not Detected B.parapertussis DNA PCR Not Detected C. pneumoniae DNA (PCR) Not Detected Coronavirus OC43 (PCR) Not Detected Coronavirus HKU1 (PCR) Not Detected Coronavirus 229E (PCR) Not Detected SARS-CoV-2 (PCR) Not Detected Coronavirus NL63 (PCR) Not Detected Human Metapneumovir PCR Not Detected Influenza Type A (PCR) Not Detected Influenza Type B (PCR) Not Detected M. pneumoniae (PCR) Not Detected Parainfluenza 1 (PCR) Not Detected Parainfluenza 2 (PCR) Not Detected Parainfluenza 3 (PCR) Not Detected Parainfluenza 4 (PCR) Not Detected RSV (PCR) Not Detected Entero/Rhino (PCR) Not Detected Blood Type Antibody Screen Crossmatch
[2024-01-17] MEDS: INSULIN REGULAR 250 UNITS in SODIUM CHLORIDE 0.9% 247.5 ML IV SCH (13:59)
--- NOTE | 2024-01-17 13:59 | Critical Care Consultation ---
Date of Consultation January 17, 2024 Assessment & Plan (1) Septic shock: (2) Hematuria: (3) Severe aortic stenosis: (4) Acute hypotension: (5) Complicated urinary tract infection: (6) Cardiogenic shock: (7) Hemorrhagic shock: Plan Complex 83-year-old male with a history of type 2 diabetes mellitus with recent cardiac arrest, ischemic cardiomyopathy and a history of ventricular fibrillation who presented to the hospital due to acute blood loss anemia from his Celeste catheter, septic shock related to a complicated urinary tract infection and severe hyperglycemia. He was just discharged from [facility] for severe coronary ischemia. Neurologic: Lethargic, but mentation intact. No acute concerns at present. Pulmonary: Currently on low-flow oxygen. At risk for worsening hypoxemic respiratory failure due to severe aortic stenosis and severely reduced ejection fraction. Chest CTA this admission revealed mildly nonspecific enlarged mediastinal lymph nodes. No evidence of pneumonia or pleural effusions. No PE. Bilateral rib fractures noted which are nondisplaced likely related to CPR he received prior to his last admission due to ckr-ca-fpthvegn cardiac arrest. Cardiovascular: Recent [id number] cardiac arrest with ventricular fibrillation. Underwent PCI x 6 and was placed on on dual antiplatelet therapy. Holding antiplatelet therapy at this time due to hematuria. Will restart antiplatelet therapy tomorrow if hemoglobin stabilizes along with hematuria. Holding antihypertensives and systolic heart failure directed therapy due to hypotension. Continue Levophed to maintain mean arterial pressures above 65 mmHg. Low threshold for arterial line and central line if unable to wean vasopressor. Gastrointestinal: CT of his abdomen pelvis revealed markedly distended urinary bladder with air- fluid levels and intraluminal hemorrhage. Emphysematous cystitis noted. Small portal venous gas within the left hepatic lobe. Bilateral mild to moderate hydroureteronephrosis. Asymmetric deep tissue edema within the right proximal thigh. Renal: Patient with severe ELIGIO due to septic shock and possibly cardiorenal syndrome. Patient also has pseudohyponatremia. Serum bicarbonate level is 15. Patient with lactic acidosis from septic shock, cardiogenic shock and hemorrhagic shock. Will start the patient on sterile water bicarbonate infusion due to acidemia at a rate of 80 cc an hour. Would hold on large administration of fluid boluses due to severe aortic stenosis and severely reduced ejection fraction. Infectious disease: Patient with evidence of a severe complicated urinary tract infection. Appreciate urology input. Continue vancomycin and cefepime. Follow urine cultures and blood cultures. Hematologic: Patient with hemorrhagic shock secondary to severe hematuria. Urology input noted. Transfuse packed RBCs to maintain hemoglobin above 7. Recheck hemoglobin after blood transfusion is completed. Endocrine: Patient with a history of mild hypothyroidism with a TSH of 8.7 checked last month. Patient also with evidence of mild diabetic ketoacidosis given the presence of trace ketones, acidemia in the bloodstream and elevated blood sugars. Insulin drip started. Lines and tubes: [address] along with Celeste catheter. VTE prophylaxis: SCDs CODE STATUS: Extensive discussion with patient and over the phone. Patient is a DNR/DNI per his wishes. Family at bedside: updated extensively over the phone. Disposition: ICU with pending transfer to [facility]. Awaiting bed. Care coordinated with hospitalist, water valve repairer and bedside [employer] GENERAL MANAGER. I have personally spent 54 minutes of critical care time in the direct management of this patient. This is a life/limb threatening event. This includes time spent evaluating patient, direct bedside care, chart review, placing orders, interpretation of diagnostic studies, discussion with consultants, patient, and family members, as well as other required patient management activities. This time is exclusive of all separately billable procedures, and teaching time and separate from and in addition to any other critical care service time. Thank you for allowing us to participate in the care of this patient. History of Present Illness Reason for Consultation: "Septic shock" Attending Physician: Alessandro Menon DO History of Present Illness 83-year-old male who has a history significant for recent hospitalization due to [id number] cardiac arrest, severe coronary artery disease requiring PCI x 6 and severe aortic stenosis. He was found to have an ejection fraction of 15% and was ultimately discharged home with a Celeste catheter and goal-directed cardiac medications. He was just discharged from [facility] yesterday. He was found to have hematuria today and was hypotensive in the ER. Per the he was dyspneic and confused overnight. She called EMS. He received a liter of fluids in the ER and hospitalist service ordered a unit of blood due to hematuria and acute blood loss anemia. He was evaluated by urology in the ICU who felt that his Celeste catheter was functioning properly. Currently he is on Levophed through peripheral IV and completing a unit of blood. He is responsive and able to answer my questions appropriately. He denies any shortness of breath or chest pain at present. He does note that he is tired. As noted above, I did speak with his over the phone. I had a lengthy discussion with the patient regarding his CODE STATUS and also with the patient's over the phone regarding the patient's CODE STATUS. Both indicated to me that the patient want to be a DNR and a DNI in the event of a cardiac arrest. I also discussed him with the hospitalist service. Allergies Allergy/AdvReac Type Severity Reaction Status Date / Time No Known Allergies Allergy Verified 01/07/24 19:19 Home Medications Medication Instructions Recorded Confirmed Type atorvastatin 40 mg tablet 40 mg PO QAM 12/03/18 01/17/24 History cholecalciferol (vitamin D3) 25 1,000 unit PO QAM 12/03/18 01/17/24 History mcg (1,000 unit) capsule empagliflozin 25 mg tablet 25 mg PO QAM 06/29/22 01/17/24 History (Jardiance) ascorbic acid (vitamin C) 125 mg 125 mg PO DAILY 01/07/24 01/17/24 History chewable tablet (Vitamin C) cyanocobalamin (vitamin B-12) 100 100 mcg PO DAILY 01/07/24 01/17/24 History mcg tablet glipizide 5 mg tablet, extended 5 mg PO QAM 01/07/24 01/17/24 History release 24 hr metformin 1,000 mg tablet 1,000 mg PO BID 01/07/24 01/17/24 History aspirin 81 mg chewable tablet 81 mg PO QAM #0 tabs 01/08/24 01/17/24 Rx (Children's Aspirin) amiodarone 200 mg tablet 200 mg PO DAILY 01/17/24 01/17/24 History clopidogrel 75 mg tablet 75 mg PO DAILY 01/17/24 01/17/24 History metoprolol succinate 25 mg 25 mg PO DAILY 01/17/24 01/17/24 History tablet,extended release 24 hr sacubitril 24 mg-valsartan 26 mg 1 tab PO BID 01/17/24 01/17/24 History tablet (Entresto) spironolactone 25 mg tablet 12.5 mg PO DAILY 01/17/24 01/17/24 History tamsulosin 0.4 mg capsule 0.4 mg PO HS 01/17/24 01/17/24 History Patient History Medical History Aortic valve sclerosis followed with Dr Velasquez Diabetes mellitus, type 2 NIDDM History of anemia r/t GI bleed in 11/2018. EGD and x5 units of blood History of GI bleed (11/2018) Hypertension Hyperlipidemia History of COVID-29 Nov 2021 > not hospitalized Surgical History S/P carpal tunnel release (05/15/23) right History of left cataract extraction History of tooth extraction History of tonsillectomy History of esophagogastroduodenoscopy (EGD) 12/04/2018. propofol no issues. History of colonoscopy 10/2010 colonoscopy: Sigmoid diverticulosis Family History Father Diabetes Bladder cancer Mother Diabetes Other No family history of adverse response to anesthesia Social History Smoking Status: Unknown if ever smoked Tobacco Type: Cigarettes Second Hand Exposure: No; Do You Dip or Chew Tobacco: No; Hx Alcohol Use: No Hx Substance Use: No Preferred Language: Upper Sorbian Communication Ability: Effective Pond Supervisor Required: No Beliefs That Will Affect Care: None Current Living Situation: Spouse Feels Safe at Home: Yes Assistive Devices: Hearing Aid - Bilateral and Walker Review of Systems Review of Systems: All systems reviewed & are unremarkable except as noted in HPI & below Physical Exam Constitutional: + ill appearing and + lethargic Eyes: PERRL, conjunctivae normal, anicteric sclerae ENMT: external ear and nose normal, oropharynx normal Neck: trachea midline, no thyromegaly Respiratory: no respiratory distress and no labored breathing Cardiovascular: Rate/Rhythm: regular rate and regular rhythm Heart Sounds: + murmur (Grade 2 over 6 systolic) Vessels: no JVD Extremities: no edema Gastrointestinal (Abdomen): normal bowel sounds, soft, nontender, no hepatosplenomegaly Musculoskeletal: Head/Neck/Chest: head atraumatic Results & Data Results & Data Vital Signs (Past 12 Hours) Vital Signs Temp Pulse Pulse Resp BP BP Pulse Ox 01/17/24 13:47 36.5 C 93 H 20 99/56 L 98 01/17/24 13:33 88 20 105/55 L 100 01/17/24 13:21 88 20 100 01/17/24 13:13 36.7 C 94 H 20 110/55 L 100 01/17/24 13:00 90 21 100 01/17/24 12:56 01/17/24 12:47 110/57 L 01/17/24 12:47 110/57 L 01/17/24 12:45 93 H 11 L 01/17/24 12:30 93 H 23 98 01/17/24 12:30 111/56 L 01/17/24 12:30 111/56 L 01/17/24 12:25 111/58 L 01/17/24 12:25 111/58 L 01/17/24 12:25 111/58 L 01/17/24 12:20 112/61 01/17/24 12:15 94 H 22 99 01/17/24 12:15 111/61 01/17/24 12:15 111/61 01/17/24 12:06 93 H 24 98 01/17/24 12:05 112/61 01/17/24 12:05 112/61 01/17/24 12:05 112/61 97 01/17/24 12:00 97 H 116/62 01/17/24 11:54 100 H 01/17/24 11:40 110/64 94 01/17/24 11:40 110/64 01/17/24 11:35 99 H 99/64 L 01/17/24 11:35 99/64 L 01/17/24 11:30 83/58 L 01/17/24 11:21 108 H 28 H 67/48 L 98 01/17/24 11:19 105 H 26 H 72/50 L 01/17/24 11:18 108 H 28 H 66/48 L 98 01/17/24 11:06 36.7 C 104 H 29 H 70/48 L 98 01/17/24 11:03 66/49 L 98 01/17/24 10:36 102 H 27 H 73/54 L 100 01/17/24 10:30 102 H 26 H 84/57 L 100 01/17/24 10:15 102 H 87/60 L 100 01/17/24 10:00 111 H 25 H 79/52 L 100 01/17/24 09:50 36.7 C 113 H 35 H 79/50 L 94 01/17/24 09:49 113 H 01/17/24 09:15 93 H 31 H 120/69 100 01/17/24 09:00 93 H 31 H 99/59 L 100 01/17/24 09:00 93 H 27 H 99/59 L 100 01/17/24 08:49 90 01/17/24 08:31 88 24 99 01/17/24 08:10 88 24 114/64 99 01/17/24 08:10 01/17/24 08:10 36.6 C 88 24 114/64 100 O2 Del Method O2 Flow Rate 01/17/24 13:47 2 01/17/24 13:33 5 01/17/24 13:21 01/17/24 13:13 5 01/17/24 13:00 01/17/24 12:56 Nasal Cannula 5 01/17/24 12:47 01/17/24 12:47 01/17/24 12:45 01/17/24 12:30 01/17/24 12:30 01/17/24 12:30 01/17/24 12:25 01/17/24 12:25 01/17/24 12:25 01/17/24 12:20 01/17/24 12:15 01/17/24 12:15 01/17/24 12:15 01/17/24 12:06 01/17/24 12:05 01/17/24 12:05 01/17/24 12:05 01/17/24 12:00 01/17/24 11:54 01/17/24 11:40 01/17/24 11:40 01/17/24 11:35 01/17/24 11:35 01/17/24 11:30 01/17/24 11:21 01/17/24 11:19 01/17/24 11:18 01/17/24 11:06 Nasal Cannula 2 01/17/24 11:03 01/17/24 10:36 01/17/24 10:30 Nasal Cannula 2 01/17/24 10:15 Nasal Cannula 2 01/17/24 10:00 01/17/24 09:50 01/17/24 09:49 01/17/24 09:15 01/17/24 09:00 Nasal Cannula 2 01/17/24 09:00 Nasal Cannula 2 01/17/24 08:49 01/17/24 08:31 Room Air 2 01/17/24 08:10 Nasal Cannula 2 01/17/24 08:10 Nasal Cannula 2 01/17/24 08:10 Nasal Cannula 2 Coding Level of Care Code 86329 CRITICAL CARE 1ST 30-74M Diagnoses Septic shock A41.9; R65.21 Hematuria R31.9 Severe aortic stenosis I35.0 Acute hypotension I95.9 Complicated urinary tract infection N39.0 Cardiogenic shock R57.0 Hemorrhagic shock R57.8
[2024-01-17] MEDS: HHS GOAL RANGE 250-350 mg/dl ONE (14:01)
--- NOTE | 2024-01-17 14:03 | Pharmacy Report ---
Pharmacy PK ABX Note - Date of Service January 17, 2024 - Assessment and Plan Assessment 83 year old M receiving vancomycin + cefepime for treatment of septic shock in the setting of emphysematous cystitis. Blood and urine cultures pending. (+) ELIGIO: SCr 1.66-->1.86mg/dL (baseline ~0.85). Day #1 of antimicrobial therapy. Plan Vancomycin * Loading dose: 2000 mg IV x 1 * Given ELIGIO and vasopressor requirement will dose further vancomycin by levels. * Random level tomorrow AM to guide further dosing. Pharmacy will continue to follow and will adjust dose/frequency as necessary. Thank you. Pharmacy has transitioned to AUC monitoring for vancomycin. AUC/ARDEN is the preferred PK/PD target and is associated with decreased risk of nephrotoxicity compared to traditional trough targets.
--- NOTE | 2024-01-17 14:41 | Pharmacy Report ---
Pharmacy Glycemic Short Note 2 - Date of Service January 17, 2024 - Glycemic Short BSG Results (Last 24 hours): 01/17/24 01/17/24 01/17/24 08:42 08:44 11:36 Glucose 459 H* POC Glucose 468 H* POC Glucose (other) 437 H* 01/17/24 01/17/24 12:16 12:55 Glucose 402 H* POC Glucose 427 H* POC Glucose (other) OUTPATIENT ANTIDIABETIC REGIMEN: * glipizide 5mg PO daily * empagliflozin 25mg PO daily * metformin 1gm PO BID HbA1C: 7% ASSESSMENT: * Patient is an 83 year old male admitted with septic shock due to likely urinary source and DKA. History of DM2 on PO diabetes medications outpatient. Pharmacy consulted to assist with inpatient glycemic management. Initial labs: pH 7.27, BSG 459, AG18, bicarb-15. * Insulin drip initiated per DKA/HHS protocol. Currently requiring vasopressor support and receiving IV antibiotics. NPO. * Continue insulin infusion per DKA/HHS protocol until BSG within goal range, AG<12, bicarb >/=15, pH >7.3 and patient mentating appropriately. PLAN FOR INPATIENT GLYCEMIC CONTROL: * Hold outpatient oral diabetes medications * Basal insulin * insulin drip per DKA/HHS protocol * Bolus insulin * NovoLog per scale ACHS or Q6hrs while NPO * Goal Range: Low 250 mg/dL - High 350 mg/dL * Correction Factor: - mg/dL/unit * Nutritional / Prandial insulin per carb ratio of 1 unit per (calculator) grams CHO consumed
--- NOTE | 2024-01-17 15:08 | Electrocardiogram Report ---
Test Reason : Blood Pressure : */* mmHG Vent. Rate : 99 BPM Atrial Rate : 99 BPM P-R Int : 176 ms QRS Dur : 192 ms QT Int : 432 ms P-R-T Axes : 40 -61 121 degrees QTcB Int : 554 ms Sinus rhythm Left axis deviation Left bundle branch block Abnormal ECG When compared with ECG of 17-Jan-2024 08:27, Premature ventricular complexes are no longer Present Confirmed by Ananda Gamboa ([id number]) on 01/17/2024 3:07:51 PM Referred By: REFERRED SELF Confirmed By: Ananda Gamboa
[2024-01-17 16:25] LABS: BUN Creatinine Ratio 26.4 (10-20); Calcium 8.2 mg/dl (8.6-10.3); Creatinine Clr Calc Pharmacy 33.9 ml/min; Magnesium 1.8 mg/dl (1.7-2.4); Phosphorus 3.4 mg/dl (2.5-4.9); Potassium 3.5 mmol/L (3.5-5.1)
[2024-01-17] MEDS: INSULIN ASPART PER UNIT CHARGE SC SCH (16:37)
[2024-01-17] MEDS: MAGNESIUM SULFATE / D5W 1 GM/100 ML BAG IV SCH (16:45)
[2024-01-17] MEDS: POTASSIUM CHLORIDE / WTR 10 MEQ/100 ML PLCT IV SCH (16:55)
[2024-01-17 17:09] LABS: Hemoglobin 8.9 g/dl (14.0-18.0)
--- NOTE | 2024-01-17 17:45 | Procedure Note ---
Procedure Note Date of Service January 17, 2024 ARTERIAL LINE PROCEDURE NOTE: Procedure: Arterial Line Placement Indication: Monitoring on Pressors Anesthesia: None/5 mL lidocaine 1% Consent was signed and placed on the chart prior to procedure. Indication, risks, and benefits were explained at length. A time-out was completed verifying correct patient, procedure, site, positioning, and implant(s) or special equipment if applicable. Patients left wrist was prepped and draped in the usual sterile fashion. Ultrasound guidance was used to aid needle placement. A 20g Arrow arterial line was introduced into the radial artery. Catheter was threaded, and the needle was removed with appropriate blood return. Good waveform was observed. The patient tolerated the procedure well. Blood Loss: Minimal Complications: None [facility] Procedure Codes (Charges) Tubes, Drains, and Vasc Access Procedure 1: Tubes, Drains, and Vasc Access: [id number] Arterial Cath/Cannulation Sampling/Monitoring/Transfusion Procedure 2: Tubes, Drains, and Vasc Access: [id number] Ultrasound Guidance For Vascular Coding CPT Codes Tubes, Drains, and Vasc Access - Tubes, Drains, and Vasc Access: [id number] Arterial Cath/Cannulation Sampling/Monitoring/Transfusion ([id number]) Tubes, Drains, and Vasc Access - Tubes, Drains, and Vasc Access: [id number] Ultrasound Guidance For Vascular ([id number]) Additional Codes Date of Service (PG.SURGERY)
--- NOTE | 2024-01-17 18:17 | Procedure Note ---
Procedure Note Date of Service January 17, 2024 INTERNAL JUGULAR CENTRAL LINE PROCEDURE NOTE: Procedure: Internal Jugular Central Line Placement Indication: Central Drug Administration, Poor Venous Access, Multiple Lab Draws Necessary, etc. Anesthesia: None/8 ml Lidocaine 1% Consent was signed and placed on the chart prior to procedure. Indication, risks, and benefits were explained at length. A time-out was completed verifying correct patient, procedure, site, positioning, and implants(s) or special equipment if applicable. Patients right neck was cleansed and draped in the typical sterile fashion using Chloraprep. The Internal Jugular Vein and Carotid Artery were identified using ultrasound. The superficial tissue was anesthetized using 8 mL of 1% lidocaine without epinephrine under direct visualization with the ultrasound. After adequate anesthetization was achieved, the Internal Jugular vein was cannulated under direct ultrasound guidance using an introducer needle on a syringe. Good venous blood return was maintained prior to removal of syringe from introducer needle. Using Seldinger Technique, a guide wire was advanced through the introducer needle without resistance. The introducer needle was removed and ultrasound images were obtained of the guide wire within the Internal Jugular Vein and saved to the patients medical record. A small incision was made in penetrating fashion at the guide wire insertion site utilizing an 11 blade scalpel. The dilator was advanced to the vessel without resistance. The dilator was exchanged for the triple lumen catheter which was advanced into the vessel without resistance. The guide wire was removed intact from the catheter without issue. Claves were placed on each catheter tip with confirmation of good blood flow from each lumen. Each port was easily flushed with sterile saline. The catheter was placed at 15 cm and sutured in place. BioPatch was applied to the catheter and a sterile Tegaderm dressing was applied over the catheter with careful attention to sterility. Patient tolerated procedure well. No immediate complications were met. Post procedure procedure chest x-ray pending. Images obtained are saved for permanent record [facility] [place] Procedure Codes (Charges) Tubes, Drains, and Vasc Access Procedure 1: Tubes, Drains, and Vasc Access: [id number] Place catheter in vein superior or inferior vena cava Procedure 2: Tubes, Drains, and Vasc Access: [id number] Ultrasound Guidance For Vascular Coding CPT Codes Tubes, Drains, and Vasc Access - Tubes, Drains, and Vasc Access: [id number] Place catheter in vein superior or inferior vena cava ([id number]) Tubes, Drains, and Vasc Access - Tubes, Drains, and Vasc Access: [id number] Ultrasound Guidance For Vascular ([id number]) Additional Codes Date of Service (PG.SURGERY)
--- NOTE | 2024-01-17 18:39 | XRay Report ---
EXAM: Radiograph of the Chest 1 View INDICATION: Right internal jugular line placement. TECHNIQUE: Frontal view of the chest. COMPARISON: No relevant prior studies available. FINDINGS: Lungs and pleural spaces: Stable congested pulmonary vascularity and probable chronic airway thickening in the left base. No confluent consolidation or pulmonary edema. No pleural effusion or pneumothorax. Heart: Stable large cardiac shadow. Mediastinum: Normal contour. Bones/joints: No fracture, erosion or dislocation. Soft tissues: No abnormality noted. Tubes, lines and devices: Right internal jugular catheter terminates at the cavoatrial junction. Previous endotracheal and nasogastric tubes no longer present. Upper abdomen: No abnormality noted. IMPRESSION: 1. Stable chronic appearing pulmonary vascular congestion. 2. Lines and tubes as above. ACT 112: Negative or not required by law. Electronically signed by Molly Osorio 01-17-2024 6:38 PM
[2024-01-17 20:05] LABS: Calcium 8.3 mg/dl (8.6-10.3); Creatinine Clr Calc Pharmacy 37.7 ml/min; Magnesium 2.3 mg/dl (1.7-2.4); Potassium 4.5 mmol/L (3.5-5.1)
[2024-01-17] MEDS: SODIUM BICARBONATE 8.4% 150 MEQ in WATER, STERILE 1,000 ML IV SCH (22:33)
[2024-01-17 22:38] LABS: A calco-baum cmplx NotReported Not Detected (NotDetected); Bact fragilis Not Reported Not Detected (NotDetected); Blood Culture Id Panel See PCR Comment (NotDetected); C auris Not Reported Not Detected (NotDetected); CTX-M Resistant Gene Not Detected (NotDetected); Calbicans Not Reported Not Detected (NotDetected); Candida glabrata Not Reported Not Detected (NotDetected); Candida krusei Not Reported Not Detected (NotDetected); Cneoformans/gatti Not Reported Not Detected (NotDetected); Cparapsilosis Not Reported Not Detected (NotDetected); E cloacae compx Not Reported Not Detected (NotDetected); Efaecalis Not Reported Not Detected (NotDetected); Efaecium Not Reported Not Detected (NotDetected); Enterobacterales Not Reported DETECTED (NotDetected); Escherichia coli Not Reported Not Detected (NotDetected); H influenzae Not Reported Not Detected (NotDetected); IMP Resistant Gene Not Detected (NotDetected); K aerogenes Not Reported Not Detected (NotDetected); KPC Resistant Gene Not Detected (NotDetected); Koxytoca Not Reported DETECTED (NotDetected); Kpneumoniae grp Not Reported Not Detected (NotDetected); Lmonocyt Not Reported Not Detected (NotDetected); N meningitidis Not Reported Not Detected (NotDetected); NDM Resistant Gene Not Detected (NotDetected); OXA 48 Like Resistant Gene Not Detected (NotDetected); P aeruginosa Not Reported Not Detected (NotDetected); Proteus spp Not Reported Not Detected (NotDetected); Salmonella spp Not Reported Not Detected (NotDetected); Staph lugdunensis Not Reported Not Detected (NotDetected); Staph spp. Not Reported Not Detected (NotDetected); Staphaureus Not Reported Not Detected (NotDetected); Staphepi Not Reported Not Detected (NotDetected); Stenmaltophilia Not Reported Not Detected (NotDetected); Strep agal(GrpB) Not Reported Not Detected (NotDetected); Strep pneum Not Reported Not Detected (NotDetected); Strep pyog (GrpA) Not Reported Not Detected (NotDetected); Strep spp Not Reported Not Detected (NotDetected); VIM Resistant Gene Not Detected (NotDetected); mcr-1 Colistin Resistant Gene Not Detected (NotDetected)
[2024-01-17 22:43] LABS: Enterobacterales DETECTED (NotDetected)
[2024-01-17 22:44] LABS: BUN Creatinine Ratio 31.5 (10-20); Calcium 8.3 mg/dl (8.6-10.3); Creatinine Clr Calc Pharmacy 41.3 ml/min; Magnesium 2.4 mg/dl (1.7-2.4); Potassium 4.6 mmol/L (3.5-5.1)
[2024-01-17] MEDS: CEFEPIME 2000MG 2,000 MG/20 ML SYR IV SCH (22:57)
[2024-01-17] MEDS: ACETAMINOPHEN 1,000 MG/100 ML VIAL IV PRN (23:08)
[2024-01-17 23:30] LABS: Troponin I High Sensitivity 27456.3 pg/ml (0-20)
[2024-01-18 00:58] LABS: BUN Creatinine Ratio 33.1 (10-20); Calcium 8.1 mg/dl (8.6-10.3); Creatinine Clr Calc Pharmacy 43.4 ml/min; Magnesium 2.4 mg/dl (1.7-2.4); Potassium 4.4 mmol/L (3.5-5.1)
[2024-01-18 04:42] LABS: Albumin Level 3.3 gm/dl (3.4-5.0); BUN Creatinine Ratio 33.9 (10-20); Bilirubin Direct 0.2 mg/dl (0-0.2); Bilirubin,Total 0.9 mg/dl (0.2-1.0); Creatinine Clr Calc Pharmacy 48.7 ml/min; Magnesium 2.4 mg/dl (1.7-2.4); Phosphorus 3.9 mg/dl (2.5-4.9)
[2024-01-18 04:47] LABS: Basophils # (auto) 0.11 K/uL (0.00-0.20); Basophils % (auto) 0.3 %; Echinocytes 1+; Eosinophils # (auto) 0.01 K/uL (0.00-0.50); Hematocrit (blood only) 27.2 % (42.0-52.0); Hemoglobin 9.1 g/dl (14.0-18.0); Immature Granulocytes # (auto) 1.14 K/uL (0.01-0.20); Immature Granulocytes % (auto) 3.1 %; Lymphocytes # (auto) 0.99 K/uL (1.20-3.40); Lymphocytes % (auto) 2.7 %; Mean Corpuscular Hemoglobin 28.1 pg (25.0-34.0); Mean Corpuscular Hgb Conc 33.5 g/dL (32.0-36.0); Mean Platelet Volume 9.6 fL (9.4-12.4); Monocytes # (auto) 1.76 K/uL (0.11-0.59); Monocytes % (auto) 4.8 %; Neutrophils # (auto) 32.59 K/uL (1.40-6.50); Neutrophils % (auto) 89.1 %; Platelet Count 245 K/uL (130-400); Polychromasia 1+; RDW Coefficient of Variation 15.6 % (11.5-14.5); RDW Standard Deviation 46.7 fL (36.4-46.3); Red Blood Count 3.24 M/uL (4.70-6.10)
[2024-01-18] MEDS: ATORVASTATIN 40 MG TAB PO SCH (08:00)
--- NOTE | 2024-01-18 08:44 | Urology Progress Note ---
Date of Service January 18, 2024 Assessment & Plan (1) Emphysematous cystitis: (2) Hematuria: Plan 83-year-old male presenting the emergency department today with a poorly draining catheter and gross hematuria. He recently was hospitalized at [facility] from 01/08/2024 to 01/16/2024 due to coronary artery disease and severe aortic stenosis. He had previously had a cardiac arrest as an outpatient. A catheter was placed there for gross hematuria he required CBI and was discharged home with a catheter and a LifeVest. Maintain Celeste catheter Follow-up cultures and treat accordingly Nursing can hand irrigate catheter as necessary however hematuria is markedly improved Creatinine improving Urology to follow peripherally, can contact urology prior to discharge to schedule appropriate follow-up for catheter and possible repeat imaging. Given how significant his infection was, would recommend catheter for at least a total of 2 weeks Admission and Anticipated Discharge Date Admission Date: January 17, 2024 Subjective Afebrile with stable vitals overnight. Labs reviewed today and show a worsening l leukocytosis of 36.6, stable hemoglobin of 9.1 after receiving blood. Kidney function pending. Blood cultures preliminarily growing out Klebsiella. Urine output 1.26 mL/kg/h. Celeste draining thin red urine. He did not require any CBI. Norepinephrine has been decreased from 0.2 yesterday to 0.12 today. Creatinine improved to 1.04 today Physical Exam Physical Exam: General: Alert and oriented, no acute distress HEENT: Normocephalic, mucous membranes moist Pulmonary: Nonlabored respirations Abdomen: Nondistended : 22 Serbian three-way catheter, capped, draining thin light red urine Extremities: Moves all 4 spontaneously Neuro: No gross deficits Skin: Warm, dry, no rashes noted Results & Data Vital Signs (Past 12 Hours) Vital Signs Temp Pulse Resp BP Pulse Ox 01/18/24 07:03 84 21 100 01/18/24 06:12 73 19 100 01/18/24 05:00 78 16 95 01/18/24 04:50 36.6 C 01/18/24 04:06 78 20 98 01/18/24 03:06 77 21 100 01/18/24 02:15 84 23 100 01/18/24 01:09 124/55 L 01/18/24 01:06 77 18 98 01/18/24 01:01 78 01/18/24 00:42 82 22 98 01/18/24 00:12 83 16 100 01/17/24 23:30 87 19 96 01/17/24 23:06 79 17 100 01/17/24 22:30 84 19 99 01/17/24 22:03 82 01/17/24 20:45 85 22 PG Care Time/CCT Total # of Minutes Spent Total Time Spent with Patient: Total time spent is greater than 50% in coordination of care (as documented) at patient's floor/unit and/or counseling patient: Coding Level of Care Code 93517 SUB INP/OBS CARE 2/35MIN Diagnoses Emphysematous cystitis N30.80 Hematuria R31.9
[2024-01-18 08:51] LABS: BUN Creatinine Ratio 38.5 (10-20); Calcium 8.2 mg/dl (8.6-10.3); Magnesium 2.4 mg/dl (1.7-2.4)
[2024-01-18] MEDS ORDERED: CLOPIDOGREL BISULFATE 75 MG TAB PO SCH (09:00)
[2024-01-18] MEDS ORDERED: ASPIRIN 81 MG CHEW PO SCH (09:00)
[2024-01-18] MEDS: SODIUM CHLORIDE 0.9% 250 ML IV ONE (09:56)
[2024-01-18] MEDS: LANTUS PER UNIT CHARGE SC ONE (10:11)
--- NOTE | 2024-01-18 10:28 | Cardiology Progress Note ---
Date of Service January 18, 2024 Assessment & Plan (1) Acute blood loss anemia: (2) Hematuria: (3) Severe aortic stenosis: (4) S/P coronary angioplasty: Plan Complex 83-year-old male with recent discharge day prior to this current admission from [facility] [address] after transfer following [id number] cardiac arrest. 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 Patient presented with acute acute lethargy, hypotension and weakness with marked anemia. Findings consistent with mixed etiology cardiac and noncardiogenic shock. Contributing factors include blood loss anemia, meds, possible sepsis Patient on pressors with reasonable blood pressure and heart rate. Exam not reflective of acute volume overload Transfusion ongoing Recommendations: Unfortunately will require dual plate antiplatelet therapy given multivessel coronary stenting Would transfuse and taper pressors as blood pressure allows Hold Entresto, spironolactone 01/18/2024 Hemodynamically improving and patient more alert though patient remains on pressors. Laboratory studies reflecting evidence of sepsis complicated by cardiogenic and hemorrhagic shock. Recommendations Taper pressors as able. Resume dual antiplatelet therapy Admission and Anticipated Discharge Date Admission Date: January 17, 2024 Subjective Patient was seen and personally examined., Chart and telemetry reviewed. Still remains in ICU on IV pressors. Hemodynamics have improved Patient more alert this morning answering questions appropriately Good urinary output Hemoglobin improved after transfusion Urine and blood growing Klebsiella Review of Systems Review of Systems: All systems reviewed & are unremarkable except as noted in Subjective Physical Exam Constitutional: + ill appearing and + lethargic Eyes: PERRL, conjunctivae normal, anicteric sclerae ENMT: external ear and nose normal, oropharynx normal Neck: trachea midline, no thyromegaly Respiratory: no respiratory distress and no labored breathing Cardiovascular: Rate/Rhythm: regular rate and regular rhythm Heart Sounds: + murmur (Grade 2 over 6 systolic) Vessels: no JVD Extremities: no edema Gastrointestinal (Abdomen): normal bowel sounds, soft, nontender, no hepatosplenomegaly Musculoskeletal: Head/Neck/Chest: head atraumatic Results & Data Vital Signs (Past 12 Hours) Vital Signs Temp Pulse Resp BP Pulse Ox 01/18/24 07:03 84 21 100 01/18/24 06:12 73 19 100 01/18/24 05:00 78 16 95 01/18/24 04:50 36.6 C 01/18/24 04:06 78 20 98 01/18/24 03:06 77 21 100 01/18/24 02:15 84 23 100 01/18/24 01:09 124/55 L 01/18/24 01:06 77 18 98 01/18/24 01:01 78 01/18/24 00:42 82 22 98 01/18/24 00:12 83 16 100 01/17/24 23:30 87 19 96 01/17/24 23:06 79 17 100 01/17/24 22:30 84 19 99 Laboratory Results Laboratory Results - last 24 hr 01/17/24 01/17/24 01/17/24 08:44 11:23 11:36 WBC RBC Hgb Hct MCV MCH MCHC RDW Std Deviation RDW Coeff of Erendira Plt Count MPV Immature Gran % (Auto) Neut % (Auto) Lymph % (Auto) [place] % (Auto) Eos % (Auto) Baso % (Auto) Neut # (Auto) Lymph # (Auto) [place] # (Auto) Eos # (Auto) Baso # (Auto) Immature Gran # (Auto) Polychromasia Echinocytes VBG pH VBG pCO2 VBG pO2 VBG HCO3 VBG O2 Saturation VBG Base Excess Sodium Potassium Chloride Carbon Dioxide Anion Gap BUN Creatinine Est Cr Clr Drug Dosing eGFR BUN/Creatinine Ratio Glucose POC Glucose 468 H* POC Glucose (other) Lactate Calcium Phosphorus Magnesium Total Bilirubin Direct Bilirubin AST ALT Alkaline Phosphatase Troponin I High Sens 38.5 H D Total Protein Albumin Random Cortisol Urine Color Urine Appearance Urine pH Ur Specific Stout Urine Protein Urine Glucose (UA) Urine Ketones Urine Blood Urine Nitrite Urine Bilirubin Urine Urobilinogen Ur Leukocyte Esterase Urine RBC Urine WBC Ur Epithelial Cells Urine Bacteria Nasal Screen MRSA (PCR) Random Vancomycin Adenovirus (PCR) B. pertussis DNA (PCR) B.parapertussis DNA PCR C. pneumoniae DNA (PCR) Coronavirus OC43 (PCR) Coronavirus HKU1 (PCR) Coronavirus 229E (PCR) SARS-CoV-2 (PCR) Coronavirus NL63 (PCR) Enterobacterales (PCR) DETECTED A Human Metapneumovir PCR Influenza Type A (PCR) Influenza Type B (PCR) Klebsiella oxytoca PCR DETECTED A M. pneumoniae (PCR) Parainfluenza 1 (PCR) Parainfluenza 2 (PCR) Parainfluenza 3 (PCR) Parainfluenza 4 (PCR) RSV (PCR) Entero/Rhino (PCR) mcr-1 Colistin Res Gene PCR Not Detected blaIMP Car res Gene PCR Not Detected KPC-Carbap Res Gene PCR Not Detected blaNDM Car Res Gene PCR Not Detected OXA-48 Carbapenem Resis Gene (PCR) Not Detected blaVIM Car Res Gene PCR Not Detected CTX-M Gene Resistance (PCR) Not Detected Bld Cult ID Panel PCR See PCR Comment Blood Type O Negative Antibody Screen NEGATIVE Crossmatch See Detail 01/17/24 01/17/24 01/17/24 12:12 12:16 12:55 WBC RBC Hgb 6.8 L* Hct 22.3 L MCV MCH MCHC RDW Std Deviation RDW Coeff of Erendira Plt Count MPV Immature Gran % (Auto) Neut % (Auto) Lymph % (Auto) [place] % (Auto) Eos % (Auto) Baso % (Auto) Neut # (Auto) Lymph # (Auto) [place] # (Auto) Eos # (Auto) Baso # (Auto) Immature Gran # (Auto) Polychromasia Echinocytes VBG pH 7.25 L 7.27 L VBG pCO2 26 L VBG pO2 39 VBG HCO3 11 VBG O2 Saturation 63.1 VBG Base Excess -14.1 Sodium 133 L Potassium 4.1 Chloride 101 Carbon Dioxide 15 L Anion Gap 17 H BUN 51 H Creatinine 1.86 H Est Cr Clr Drug Dosing 32.4 eGFR 35.24 BUN/Creatinine Ratio 27.4 H Glucose 402 H* POC Glucose 427 H* POC Glucose (other) Lactate 8.0 H* Calcium 8.3 L Phosphorus 4.4 Magnesium 1.9 Total Bilirubin Direct Bilirubin AST ALT Alkaline Phosphatase Troponin I High Sens Total Protein Albumin Random Cortisol Urine Color Urine Appearance Urine pH Ur Specific Stout Urine Protein Urine Glucose (UA) Urine Ketones Urine Blood Urine Nitrite Urine Bilirubin Urine Urobilinogen Ur Leukocyte Esterase Urine RBC Urine WBC Ur Epithelial Cells Urine Bacteria Nasal Screen MRSA (PCR) Random Vancomycin Adenovirus (PCR) B. pertussis DNA (PCR) B.parapertussis DNA PCR C. pneumoniae DNA (PCR) Coronavirus OC43 (PCR) Coronavirus HKU1 (PCR) Coronavirus 229E (PCR) SARS-CoV-2 (PCR) Coronavirus NL63 (PCR) Enterobacterales (PCR) Human Metapneumovir PCR Influenza Type A (PCR) Influenza Type B (PCR) Klebsiella oxytoca PCR M. pneumoniae (PCR) Parainfluenza 1 (PCR) Parainfluenza 2 (PCR) Parainfluenza 3 (PCR) Parainfluenza 4 (PCR) RSV (PCR) Entero/Rhino (PCR) mcr-1 [place] Res Gene PCR blaIMP Car res Gene PCR KPC-Carbap Res Gene PCR blaNDM Car Res Gene PCR OXA-48 Carbapenem Resis Gene (PCR) blaVIM Car Res Gene PCR CTX-M Gene Resistance (PCR) Bld Cult ID Panel PCR Blood Type Antibody Screen Crossmatch 01/17/24 01/17/24 01/17/24 15:14 15:36 16:37 WBC RBC Hgb Hct MCV MCH MCHC RDW Std Deviation RDW Coeff of Erendira Plt Count MPV Immature Gran % (Auto) Neut % (Auto) Lymph % (Auto) [place] % (Auto) Eos % (Auto) Baso % (Auto) Neut # (Auto) Lymph # (Auto) [place] # (Auto) Eos # (Auto) Baso # (Auto) Immature Gran # (Auto) Polychromasia Echinocytes VBG pH 7.35 L VBG pCO2 VBG pO2 VBG HCO3 VBG O2 Saturation VBG Base Excess Sodium 134 L Potassium 3.5 Chloride 105 Carbon Dioxide 16 L Anion Gap 13 H BUN 47 H Creatinine 1.78 H Est Cr Clr Drug Dosing 33.9 eGFR 37.15 BUN/Creatinine Ratio 26.4 H Glucose 309 H* POC Glucose POC Glucose (other) 322 H 251 H Lactate 4.4 H* Calcium 8.2 L Phosphorus 3.4 D Magnesium 1.8 Total Bilirubin Direct Bilirubin AST ALT Alkaline Phosphatase Troponin I High Sens 35692.7 H* D Total Protein Albumin Random Cortisol Urine Color Urine Appearance Urine pH Ur Specific Stout Urine Protein Urine Glucose (UA) Urine Ketones Urine Blood Urine Nitrite Urine Bilirubin Urine Urobilinogen Ur Leukocyte Esterase Urine RBC Urine WBC Ur Epithelial Cells Urine Bacteria Nasal Screen MRSA (PCR) Random Vancomycin Adenovirus (PCR) B. pertussis DNA (PCR) B.parapertussis DNA PCR C. pneumoniae DNA (PCR) Coronavirus OC43 (PCR) Coronavirus HKU1 (PCR) Coronavirus 229E (PCR) SARS-CoV-2 (PCR) Coronavirus NL63 (PCR) Enterobacterales (PCR) Human Metapneumovir PCR Influenza Type A (PCR) Influenza Type B (PCR) Klebsiella oxytoca PCR M. pneumoniae (PCR) Parainfluenza 1 (PCR) Parainfluenza 2 (PCR) Parainfluenza 3 (PCR) Parainfluenza 4 (PCR) RSV (PCR) Entero/Rhino (PCR) mcr-1 [place] Res Gene PCR blaIMP Car res Gene PCR KPC-Carbap Res Gene PCR blaNDM Car Res Gene PCR OXA-48 Carbapenem Resis Gene (PCR) blaVIM Car Res Gene PCR CTX-M Gene Resistance (PCR) Bld Cult ID Panel PCR Blood Type Antibody Screen Crossmatch 01/17/24 01/17/24 01/17/24 16:50 17:18 17:40 WBC RBC Hgb 8.9 L Hct 27.0 L MCV MCH MCHC RDW Std Deviation RDW Coeff of Erendira Plt Count MPV Immature Gran % (Auto) Neut % (Auto) Lymph % (Auto) [place] % (Auto) Eos % (Auto) Baso % (Auto) Neut # (Auto) Lymph # (Auto) [place] # (Auto) Eos # (Auto) Baso # (Auto) Immature Gran # (Auto) Polychromasia Echinocytes VBG pH VBG pCO2 VBG pO2 VBG HCO3 VBG O2 Saturation VBG Base Excess Sodium Potassium Chloride Carbon Dioxide Anion Gap BUN Creatinine Est Cr Clr Drug Dosing eGFR BUN/Creatinine Ratio Glucose POC Glucose POC Glucose (other) 218 H Lactate 3.3 H* Calcium Phosphorus Magnesium Total Bilirubin Direct Bilirubin AST ALT Alkaline Phosphatase Troponin I High Sens Total Protein Albumin Random Cortisol Urine Color Urine Appearance Urine pH Ur Specific Stout Urine Protein Urine Glucose (UA) Urine Ketones Urine Blood Urine Nitrite Urine Bilirubin Urine Urobilinogen Ur Leukocyte Esterase Urine RBC Urine WBC Ur Epithelial Cells Urine Bacteria Nasal Screen MRSA (PCR) Random Vancomycin Adenovirus (PCR) B. pertussis DNA (PCR) B.parapertussis DNA PCR C. pneumoniae DNA (PCR) Coronavirus OC43 (PCR) Coronavirus HKU1 (PCR) Coronavirus 229E (PCR) SARS-CoV-2 (PCR) Coronavirus NL63 (PCR) Enterobacterales (PCR) Human Metapneumovir PCR Influenza Type A (PCR) Influenza Type B (PCR) Klebsiella oxytoca PCR M. pneumoniae (PCR) Parainfluenza 1 (PCR) Parainfluenza 2 (PCR) Parainfluenza 3 (PCR) Parainfluenza 4 (PCR) RSV (PCR) Entero/Rhino (PCR) mcr-1 Col[place] Res Gene PCR blaIMP Car res Gene PCR KPC-Carbap Res Gene PCR blaNDM Car Res Gene PCR OXA-48 Carbapenem Resis Gene (PCR) blaVIM Car Res Gene PCR CTX-M Gene Resistance (PCR) Bld Cult ID Panel PCR Blood Type Antibody Screen Crossmatch 01/17/24 01/17/24 01/17/24 18:40 19:26 19:46 WBC RBC Hgb Hct MCV MCH MCHC RDW Std Deviation RDW Coeff of Erendira Plt Count MPV Immature Gran % (Auto) Neut % (Auto) Lymph % (Auto) [place] % (Auto) Eos % (Auto) Baso % (Auto) Neut # (Auto) Lymph # (Auto) [place] # (Auto) Eos # (Auto) Baso # (Auto) Immature Gran # (Auto) Polychromasia Echinocytes VBG pH VBG pCO2 VBG pO2 VBG HCO3 VBG O2 Saturation VBG Base Excess Sodium 134 L Potassium 4.5 D Chloride 106 Carbon Dioxide 19 L Anion Gap 9 BUN 48 H Creatinine 1.60 H Est Cr Clr Drug Dosing 37.7 eGFR 42.22 BUN/Creatinine Ratio 30.0 H Glucose 197 H POC Glucose POC Glucose (other) 204 H 199 H Lactate Calcium 8.3 L Phosphorus Magnesium 2.3 Total Bilirubin Direct Bilirubin AST ALT Alkaline Phosphatase Troponin I High Sens Total Protein Albumin Random Cortisol Urine Color Urine Appearance Urine pH Ur Specific Stout Urine Protein Urine Glucose (UA) Urine Ketones Urine Blood Urine Nitrite Urine Bilirubin Urine Urobilinogen Ur Leukocyte Esterase Urine RBC Urine WBC Ur Epithelial Cells Urine Bacteria Nasal Screen MRSA (PCR) Random Vancomycin Adenovirus (PCR) B. pertussis DNA (PCR) B.parapertussis DNA PCR C. pneumoniae DNA (PCR) Coronavirus OC43 (PCR) Coronavirus HKU1 (PCR) Coronavirus 229E (PCR) SARS-CoV-2 (PCR) Coronavirus NL63 (PCR) Enterobacterales (PCR) Human Metapneumovir PCR Influenza Type A (PCR) Influenza Type B (PCR) Klebsiella oxytoca PCR M. pneumoniae (PCR) Parainfluenza 1 (PCR) Parainfluenza 2 (PCR) Parainfluenza 3 (PCR) Parainfluenza 4 (PCR) RSV (PCR) Entero/Rhino (PCR) mcr-1 [place] Res Gene PCR blaIMP Car res Gene PCR KPC-Carbap Res Gene PCR blaNDM Car Res Gene PCR OXA-48 Carbapenem Resis Gene (PCR) blaVIM Car Res Gene PCR CTX-M Gene Resistance (PCR) Bld Cult ID Panel PCR Blood Type Antibody Screen Crossmatch 01/17/24 01/17/24 01/17/24 20:46 22:01 22:16 WBC RBC Hgb Hct MCV MCH MCHC RDW Std Deviation RDW Coeff of Erendira Plt Count MPV Immature Gran % (Auto) Neut % (Auto) Lymph % (Auto) [place] % (Auto) Eos % (Auto) Baso % (Auto) Neut # (Auto) Lymph # (Auto) [place] # (Auto) Eos # (Auto) Baso # (Auto) Immature Gran # (Auto) Polychromasia Echinocytes VBG pH VBG pCO2 VBG pO2 VBG HCO3 VBG O2 Saturation VBG Base Excess Sodium 134 L Potassium 4.6 Chloride 105 Carbon Dioxide 20 L Anion Gap 9 BUN 46 H Creatinine 1.46 H Est Cr Clr Drug Dosing 41.3 eGFR 47.13 BUN/Creatinine Ratio 31.5 H Glucose 179 H POC Glucose POC Glucose (other) 194 H 177 H Lactate Calcium 8.3 L Phosphorus Magnesium 2.4 Total Bilirubin Direct Bilirubin AST ALT Alkaline Phosphatase Troponin I High Sens 53869.3 H* D Total Protein Albumin Random Cortisol Urine Color Urine Appearance Urine pH Ur Specific Stout Urine Protein Urine Glucose (UA) Urine Ketones Urine Blood Urine Nitrite Urine Bilirubin Urine Urobilinogen Ur Leukocyte Esterase Urine RBC Urine WBC Ur Epithelial Cells Urine Bacteria Nasal Screen MRSA (PCR) Random Vancomycin Adenovirus (PCR) B. pertussis DNA (PCR) B.parapertussis DNA PCR C. pneumoniae DNA (PCR) Coronavirus OC43 (PCR) Coronavirus HKU1 (PCR) Coronavirus 229E (PCR) SARS-CoV-2 (PCR) Coronavirus NL63 (PCR) Enterobacterales (PCR) Human Metapneumovir PCR Influenza Type A (PCR) Influenza Type B (PCR) Klebsiella oxytoca PCR M. pneumoniae (PCR) Parainfluenza 1 (PCR) Parainfluenza 2 (PCR) Parainfluenza 3 (PCR) Parainfluenza 4 (PCR) RSV (PCR) Entero/Rhino (PCR) mcr-1 [place] Res Gene PCR blaIMP Car res Gene PCR KPC-Carbap Res Gene PCR blaNDM Car Res Gene PCR OXA-48 Carbapenem Resis Gene (PCR) blaVIM Car Res Gene PCR CTX-M Gene Resistance (PCR) Bld Cult ID Panel PCR Blood Type Antibody Screen Crossmatch 01/17/24 01/17/24 01/17/24 22:52 23:47 Unknown WBC RBC Hgb Hct MCV MCH MCHC RDW Std Deviation RDW Coeff of Erendira Plt Count MPV Immature Gran % (Auto) Neut % (Auto) Lymph % (Auto) [place] % (Auto) Eos % (Auto) Baso % (Auto) Neut # (Auto) Lymph # (Auto) [place] # (Auto) Eos # (Auto) Baso # (Auto) Immature Gran # (Auto) Polychromasia Echinocytes VBG pH VBG pCO2 VBG pO2 VBG HCO3 VBG O2 Saturation VBG Base Excess Sodium Potassium Chloride Carbon Dioxide Anion Gap BUN Creatinine Est Cr Clr Drug Dosing eGFR BUN/Creatinine Ratio Glucose POC Glucose POC Glucose (other) 167 H 168 H Lactate Calcium Phosphorus Magnesium Total Bilirubin Direct Bilirubin AST ALT Alkaline Phosphatase Troponin I High Sens Total Protein Albumin Random Cortisol Urine Color See Comment Urine Appearance Cloudy A Urine pH Not Reportable Ur Specific Stout 1.024 Urine Protein Not Reportable Urine Glucose (UA) Not Reportable Urine Ketones Not Reportable Urine Blood Not Reportable Urine Nitrite Not Reportable Urine Bilirubin Not Reportable Urine Urobilinogen Not Reportable Ur Leukocyte Esterase Not Reportable Urine RBC >20 H Urine WBC 11-20 H Ur Epithelial Cells 0-2 Urine Bacteria 4+ H Nasal Screen MRSA (PCR) Negative Random Vancomycin Adenovirus (PCR) Not Detected B. pertussis DNA (PCR) Not Detected B.parapertussis DNA PCR Not Detected C. pneumoniae DNA (PCR) Not Detected Coronavirus OC43 (PCR) Not Detected Coronavirus HKU1 (PCR) Not Detected Coronavirus 229E (PCR) Not Detected SARS-CoV-2 (PCR) Not Detected Coronavirus NL63 (PCR) Not Detected Enterobacterales (PCR) Human Metapneumovir PCR Not Detected Influenza Type A (PCR) Not Detected Influenza Type B (PCR) Not Detected Klebsiella oxytoca PCR M. pneumoniae (PCR) Not Detected Parainfluenza 1 (PCR) Not Detected Parainfluenza 2 (PCR) Not Detected Parainfluenza 3 (PCR) Not Detected Parainfluenza 4 (PCR) Not Detected RSV (PCR) Not Detected Entero/Rhino (PCR) Not Detected mcr-1 [place] Res Gene PCR blaIMP Car res Gene PCR KPC-Carbap Res Gene PCR blaNDM Car Res Gene PCR OXA-48 Carbapenem Resis Gene (PCR) blaVIM Car Res Gene PCR CTX-M Gene Resistance (PCR) Bld Cult ID Panel PCR Blood Type Antibody Screen Crossmatch 01/18/24 01/18/24 01/18/24 00:30 00:53 01:45 WBC RBC Hgb Hct MCV MCH MCHC RDW Std Deviation RDW Coeff of Erendira Plt Count MPV Immature Gran % (Auto) Neut % (Auto) Lymph % (Auto) [place] % (Auto) Eos % (Auto) Baso % (Auto) Neut # (Auto) Lymph # (Auto) [place] # (Auto) Eos # (Auto) Baso # (Auto) Immature Gran # (Auto) Polychromasia Echinocytes VBG pH VBG pCO2 VBG pO2 VBG HCO3 VBG O2 Saturation VBG Base Excess Sodium 133 L Potassium 4.4 Chloride 106 Carbon Dioxide 18 L Anion Gap 9 BUN 46 H Creatinine 1.39 Est Cr Clr Drug Dosing 43.4 eGFR 49.99 BUN/Creatinine Ratio 33.1 H Glucose 169 H POC Glucose POC Glucose (other) 167 H 163 H Lactate Calcium 8.1 L Phosphorus Magnesium 2.4 Total Bilirubin Direct Bilirubin AST ALT Alkaline Phosphatase Troponin I High Sens Total Protein Albumin Random Cortisol Urine Color Urine Appearance Urine pH Ur Specific Stout Urine Protein Urine Glucose (UA) Urine Ketones Urine Blood Urine Nitrite Urine Bilirubin Urine Urobilinogen Ur Leukocyte Esterase Urine RBC Urine WBC Ur Epithelial Cells Urine Bacteria Nasal Screen MRSA (PCR) Random Vancomycin Adenovirus (PCR) B. pertussis DNA (PCR) B.parapertussis DNA PCR C. pneumoniae DNA (PCR) Coronavirus OC43 (PCR) Coronavirus HKU1 (PCR) Coronavirus 229E (PCR) SARS-CoV-2 (PCR) Coronavirus NL63 (PCR) Enterobacterales (PCR) Human Metapneumovir PCR Influenza Type A (PCR) Influenza Type B (PCR) Klebsiella oxytoca PCR M. pneumoniae (PCR) Parainfluenza 1 (PCR) Parainfluenza 2 (PCR) Parainfluenza 3 (PCR) Parainfluenza 4 (PCR) RSV (PCR) Entero/Rhino (PCR) mcr-1 Colistin Res Gene PCR blaIMP Car res Gene PCR KPC-Carbap Res Gene PCR blaNDM Car Res Gene PCR OXA-48 Carbapenem Resis Gene (PCR) blaVIM Car Res Gene PCR CTX-M Gene Resistance (PCR) Bld Cult ID Panel PCR Blood Type Antibody Screen Crossmatch 01/18/24 01/18/24 01/18/24 02:52 03:47 04:12 WBC 36.60 H* D RBC 3.24 L Hgb 9.1 L Hct 27.2 L MCV 84.0 D MCH 28.1 MCHC 33.5 RDW Std Deviation 46.7 H RDW Coeff of Erendira 15.6 H Plt Count 245 MPV 9.6 Immature Gran % (Auto) 3.1 Neut % (Auto) 89.1 Lymph % (Auto) 2.7 [place] % (Auto) 4.8 Eos % (Auto) 0.0 Baso % (Auto) 0.3 Neut # (Auto) 32.59 H Lymph # (Auto) 0.99 L [place] # (Auto) 1.76 H Eos # (Auto) 0.01 Baso # (Auto) 0.11 Immature Gran # (Auto) 1.14 H Polychromasia 1+ Echinocytes 1+ VBG pH VBG pCO2 VBG pO2 VBG HCO3 VBG O2 Saturation VBG Base Excess Sodium 133 L Potassium 4.0 Chloride 106 Carbon Dioxide 18 L Anion Gap 9 BUN 42 H Creatinine 1.24 Est Cr Clr Drug Dosing 48.7 eGFR 57.33 BUN/Creatinine Ratio 33.9 H Glucose 154 H POC Glucose POC Glucose (other) 150 H 153 H Lactate Calcium 8.0 L Phosphorus 3.9 Magnesium 2.4 Total Bilirubin 0.9 Direct Bilirubin 0.2 AST 97 H ALT 22 Alkaline Phosphatase 58 Troponin I High Sens Total Protein 6.0 Albumin 3.3 L Random Cortisol 34.14 Urine Color Urine Appearance Urine pH Ur Specific Stout Urine Protein Urine Glucose (UA) Urine Ketones Urine Blood Urine Nitrite Urine Bilirubin Urine Urobilinogen Ur Leukocyte Esterase Urine RBC Urine WBC Ur Epithelial Cells Urine Bacteria Nasal Screen MRSA (PCR) Random Vancomycin 9.6 L Adenovirus (PCR) B. pertussis DNA (PCR) B.parapertussis DNA PCR C. pneumoniae DNA (PCR) Coronavirus OC43 (PCR) Coronavirus HKU1 (PCR) Coronavirus 229E (PCR) SARS-CoV-2 (PCR) Coronavirus NL63 (PCR) Enterobacterales (PCR) Human Metapneumovir PCR Influenza Type A (PCR) Influenza Type B (PCR) Klebsiella oxytoca PCR M. pneumoniae (PCR) Parainfluenza 1 (PCR) Parainfluenza 2 (PCR) Parainfluenza 3 (PCR) Parainfluenza 4 (PCR) RSV (PCR) Entero/Rhino (PCR) mcr-1 Colistin Res Gene PCR blaIMP Car res Gene PCR KPC-Carbap Res Gene PCR blaNDM Car Res Gene PCR OXA-48 Carbapenem Resis Gene (PCR) blaVIM Car Res Gene PCR CTX-M Gene Resistance (PCR) Bld Cult ID Panel PCR Blood Type Antibody Screen Crossmatch 01/18/24 01/18/24 01/18/24 04:51 05:45 06:44 WBC RBC Hgb Hct MCV MCH MCHC RDW Std Deviation RDW Coeff of Erendira Plt Count MPV Immature Gran % (Auto) Neut % (Auto) Lymph % (Auto) [place] % (Auto) Eos % (Auto) Baso % (Auto) Neut # (Auto) Lymph # (Auto) [place] # (Auto) Eos # (Auto) Baso # (Auto) Immature Gran # (Auto) Polychromasia Echinocytes VBG pH VBG pCO2 VBG pO2 VBG HCO3 VBG O2 Saturation VBG Base Excess Sodium Potassium Chloride Carbon Dioxide Anion Gap BUN Creatinine Est Cr Clr Drug Dosing eGFR BUN/Creatinine Ratio Glucose POC Glucose POC Glucose (other) 155 H 157 H 157 H Lactate Calcium Phosphorus Magnesium Total Bilirubin Direct Bilirubin AST ALT Alkaline Phosphatase Troponin I High Sens Total Protein Albumin Random Cortisol Urine Color Urine Appearance Urine pH Ur Specific Stout Urine Protein Urine Glucose (UA) Urine Ketones Urine Blood Urine Nitrite Urine Bilirubin Urine Urobilinogen Ur Leukocyte Esterase Urine RBC Urine WBC Ur Epithelial Cells Urine Bacteria Nasal Screen MRSA (PCR) Random Vancomycin Adenovirus (PCR) B. pertussis DNA (PCR) B.parapertussis DNA PCR C. pneumoniae DNA (PCR) Coronavirus OC43 (PCR) Coronavirus HKU1 (PCR) Coronavirus 229E (PCR) SARS-CoV-2 (PCR) Coronavirus NL63 (PCR) Enterobacterales (PCR) Human Metapneumovir PCR Influenza Type A (PCR) Influenza Type B (PCR) Klebsiella oxytoca PCR M. pneumoniae (PCR) Parainfluenza 1 (PCR) Parainfluenza 2 (PCR) Parainfluenza 3 (PCR) Parainfluenza 4 (PCR) RSV (PCR) Entero/Rhino (PCR) mcr-1 Colistin Res Gene PCR blaIMP Car res Gene PCR KPC-Carbap Res Gene PCR blaNDM Car Res Gene PCR OXA-48 Carbapenem Resis Gene (PCR) blaVIM Car Res Gene PCR CTX-M Gene Resistance (PCR) Bld Cult ID Panel PCR Blood Type Antibody Screen Crossmatch 01/18/24 01/18/24 01/18/24 07:53 08:20 09:15 WBC RBC Hgb Hct MCV MCH MCHC RDW Std Deviation RDW Coeff of Erendira Plt Count MPV Immature Gran % (Auto) Neut % (Auto) Lymph % (Auto) [place] % (Auto) Eos % (Auto) Baso % (Auto) Neut # (Auto) Lymph # (Auto) [place] # (Auto) Eos # (Auto) Baso # (Auto) Immature Gran # (Auto) Polychromasia Echinocytes VBG pH VBG pCO2 VBG pO2 VBG HCO3 VBG O2 Saturation VBG Base Excess Sodium 135 L Potassium 4.0 Chloride 106 Carbon Dioxide 18 L Anion Gap 11 BUN 40 H Creatinine 1.04 Est Cr Clr Drug Dosing 58.0 eGFR 70.80 BUN/Creatinine Ratio 38.5 H Glucose 157 H POC Glucose POC Glucose (other) 162 H 157 H Lactate Calcium 8.2 L Phosphorus Magnesium 2.4 Total Bilirubin Direct Bilirubin AST ALT Alkaline Phosphatase Troponin I High Sens Total Protein Albumin Random Cortisol Urine Color Urine Appearance Urine pH Ur Specific Stout Urine Protein Urine Glucose (UA) Urine Ketones Urine Blood Urine Nitrite Urine Bilirubin Urine Urobilinogen Ur Leukocyte Esterase Urine RBC Urine WBC Ur Epithelial Cells Urine Bacteria Nasal Screen MRSA (PCR) Random Vancomycin Adenovirus (PCR) B. pertussis DNA (PCR) B.parapertussis DNA PCR C. pneumoniae DNA (PCR) Coronavirus OC43 (PCR) Coronavirus HKU1 (PCR) Coronavirus 229E (PCR) SARS-CoV-2 (PCR) Coronavirus NL63 (PCR) Enterobacterales (PCR) Human Metapneumovir PCR Influenza Type A (PCR) Influenza Type B (PCR) Klebsiella oxytoca PCR M. pneumoniae (PCR) Parainfluenza 1 (PCR) Parainfluenza 2 (PCR) Parainfluenza 3 (PCR) Parainfluenza 4 (PCR) RSV (PCR) Entero/Rhino (PCR) mcr-1 Colistin Res Gene PCR blaIMP Car res Gene PCR KPC-Carbap Res Gene PCR blaNDM Car Res Gene PCR OXA-48 Carbapenem Resis Gene (PCR) blaVIM Car Res Gene PCR CTX-M Gene Resistance (PCR) Bld Cult ID Panel PCR Blood Type Antibody Screen Crossmatch 01/18/24 10:04 WBC RBC Hgb Hct MCV MCH MCHC RDW Std Deviation RDW Coeff of Erendira Plt Count MPV Immature Gran % (Auto) Neut % (Auto) Lymph % (Auto) [place] % (Auto) Eos % (Auto) Baso % (Auto) Neut # (Auto) Lymph # (Auto) [place] # (Auto) Eos # (Auto) Baso # (Auto) Immature Gran # (Auto) Polychromasia Echinocytes VBG pH VBG pCO2 VBG pO2 VBG HCO3 VBG O2 Saturation VBG Base Excess Sodium Potassium Chloride Carbon Dioxide Anion Gap BUN Creatinine Est Cr Clr Drug Dosing eGFR BUN/Creatinine Ratio Glucose POC Glucose POC Glucose (other) 157 H Lactate Calcium Phosphorus Magnesium Total Bilirubin Direct Bilirubin AST ALT Alkaline Phosphatase Troponin I High Sens Total Protein Albumin Random Cortisol Urine Color Urine Appearance Urine pH Ur Specific Stout Urine Protein Urine Glucose (UA) Urine Ketones Urine Blood Urine Nitrite Urine Bilirubin Urine Urobilinogen Ur Leukocyte Esterase Urine RBC Urine WBC Ur Epithelial Cells Urine Bacteria Nasal Screen MRSA (PCR) Random Vancomycin Adenovirus (PCR) B. pertussis DNA (PCR) B.parapertussis DNA PCR C. pneumoniae DNA (PCR) Coronavirus OC43 (PCR) Coronavirus HKU1 (PCR) Coronavirus 229E (PCR) SARS-CoV-2 (PCR) Coronavirus NL63 (PCR) Enterobacterales (PCR) Human Metapneumovir PCR Influenza Type A (PCR) Influenza Type B (PCR) Klebsiella oxytoca PCR M. pneumoniae (PCR) Parainfluenza 1 (PCR) Parainfluenza 2 (PCR) Parainfluenza 3 (PCR) Parainfluenza 4 (PCR) RSV (PCR) Entero/Rhino (PCR) mcr-1 Colistin Res Gene PCR blaIMP Car res Gene PCR KPC-Carbap Res Gene PCR blaNDM Car Res Gene PCR OXA-48 Carbapenem Resis Gene (PCR) blaVIM Car Res Gene PCR CTX-M Gene Resistance (PCR) Bld Cult ID Panel PCR Blood Type Antibody Screen Crossmatch
--- NOTE | 2024-01-18 10:49 | Pharmacy Report ---
Pharmacy Glycemic Short Note 2 - Date of Service January 18, 2024 - Glycemic Short BSG Results (Last 24 hours): 01/17/24 01/17/24 01/17/24 11:36 12:16 12:55 Glucose 402 H* POC Glucose 468 H* 427 H* POC Glucose (other) 01/17/24 01/17/24 01/17/24 15:14 15:36 16:37 Glucose 309 H* POC Glucose POC Glucose (other) 322 H 251 H 01/17/24 01/17/24 01/17/24 17:40 18:40 19:26 Glucose 197 H POC Glucose POC Glucose (other) 218 H 204 H 01/17/24 01/17/24 01/17/24 19:46 20:46 22:01 Glucose POC Glucose POC Glucose (other) 199 H 194 H 177 H 01/17/24 01/17/24 01/17/24 22:16 22:52 23:47 Glucose 179 H POC Glucose POC Glucose (other) 167 H 168 H 01/18/24 01/18/24 01/18/24 00:30 00:53 01:45 Glucose 169 H POC Glucose POC Glucose (other) 167 H 163 H 01/18/24 01/18/24 01/18/24 02:52 03:47 04:12 Glucose 154 H POC Glucose POC Glucose (other) 150 H 153 H 01/18/24 01/18/24 01/18/24 04:51 05:45 06:44 Glucose POC Glucose POC Glucose (other) 155 H 157 H 157 H 01/18/24 01/18/24 01/18/24 07:53 08:20 09:15 Glucose 157 H POC Glucose POC Glucose (other) 162 H 157 H 01/18/24 10:04 Glucose POC Glucose POC Glucose (other) 157 H OUTPATIENT ANTIDIABETIC REGIMEN: * glipizide 5mg PO daily * empagliflozin 25mg PO daily * metformin 1gm PO BID HbA1C: 7% ASSESSMENT: 01/17 * Labs improving this AM, anion gap closed - reasonable to transition off insulin infusion. Running at 0.9 units/hr - will give Lantus 12 units x 1 and d/c insulin infusion. Continues on pressors this morning, NPO status 01/16 * Patient is an 83 year old male admitted with septic shock due to likely urinary source and DKA. History of DM2 on PO diabetes medications outpatient. Pharmacy consulted to assist with inpatient glycemic management. Initial labs: pH 7.27, BSG 459, AG18, bicarb-15. * Insulin drip initiated per DKA/HHS protocol. Currently requiring vasopressor support and receiving IV antibiotics. NPO. * Continue insulin infusion per DKA/HHS protocol until BSG within goal range, AG<12, bicarb >/=15, pH >7.3 and patient mentating appropriately. PLAN FOR INPATIENT GLYCEMIC CONTROL: * Hold outpatient oral diabetes medications * Basal insulin * Lantus 12 units x 1 * Bolus insulin * NovoLog per scale ACHS or Q6hrs while NPO * Goal Range: Low 120 mg/dL - High 160 mg/dL * Correction Factor: 35 mg/dL/unit * Nutritional / Prandial insulin per carb ratio of 1 unit per 12grams CHO consumed
--- NOTE | 2024-01-18 11:13 | Critical Care Progress Note ---
Date of Service January 18, 2024 Assessment & Plan (1) Septic shock: (2) Hematuria: (3) Severe aortic stenosis: (4) Acute hypotension: (5) Complicated urinary tract infection: (6) Cardiogenic shock: (7) Hemorrhagic shock: Plan Complex 83-year-old male with a history of type 2 diabetes mellitus with recent cardiac arrest, ischemic cardiomyopathy and a history of ventricular fibrillation who presented to the hospital due to acute blood loss anemia from his Celeste catheter, septic shock related to a complicated urinary tract infection and severe hyperglycemia. He was just discharged from [facility] for severe coronary ischemia. Neurologic: Lethargic, but mentation intact. No acute concerns at present. Pulmonary: Currently on low-flow oxygen. At risk for worsening hypoxemic respiratory failure due to severe aortic stenosis and severely reduced ejection fraction. Chest CTA this admission revealed mildly nonspecific enlarged mediastinal lymph nodes. No evidence of pneumonia or pleural effusions. No PE. Bilateral rib fractures noted which are nondisplaced likely related to CPR he received prior to his last admission due to [id number] cardiac arrest. Cardiovascular: Recent [id number] cardiac arrest with ventricular fibrillation. Underwent PCI x 6 and was placed on on dual antiplatelet therapy. Restarting dual antiplatelet therapy today as hemoglobin remained stable and very high risk for restenosis of stents. Holding antihypertensives and systolic heart failure directed therapy due to hypotension. Continue Levophed to maintain mean arterial pressures above 65 mmHg. Gastrointestinal: CT of his abdomen pelvis revealed markedly distended urinary bladder with air- fluid levels and intraluminal hemorrhage. Emphysematous cystitis noted. Small portal venous gas within the left hepatic lobe. Bilateral mild to moderate hydroureteronephrosis. Asymmetric deep tissue edema within the right proximal thigh. Renal: Patient with severe ELIGIO due to septic shock and possibly cardiorenal syndrome which appears to be improving. Patient also has pseudohyponatremia. Acidosis is resolving. Infectious disease: Patient with evidence of a severe complicated urinary tract infection. Appreciate urology input. Klebsiella growing from urine and blood. Hematologic: Patient with hemorrhagic shock secondary to severe hematuria. Urology input noted. Hemoglobin stable. Dual antiplatelet therapy restarted due to recent drug-eluting stents x 6. Endocrine: Patient with a history of mild hypothyroidism with a TSH of 8.7 checked last month. DKA resolving. Maintain euglycemia. Lines and tubes: [address] along with Celeste catheter. Right IJ central line placed 01/17/2024. Left radial arterial catheter placed 01/17/2024. VTE prophylaxis: SCDs CODE STATUS: DNR/DNI Family at bedside: None currently available at bedside. Disposition: ICU. Transferred to [facility] has been canceled as patient clinically improving. Care coordinated with hospitalist, strike plate attacher and bedside [employer]. I have personally spent 38 minutes of critical care time in the direct management of this patient. This is a life/limb threatening event. This includes time spent evaluating patient, direct bedside care, chart review, placing orders, interpretation of diagnostic studies, discussion with consultants, patient, and family members, as well as other required patient management activities. This time is exclusive of all separately billable procedures, and teaching time and separate from and in addition to any other critical care service time. Thank you for allowing us to participate in the care of this patient. Admission and Anticipated Discharge Date Admission Date: January 17, 2024 Subjective Patient seen and examined. No significant complaints today. Pressor requirements are weaning down. Hematuria still present. Review of Systems Review of Systems: All systems reviewed & are unremarkable except as noted in HPI & below Physical Exam Constitutional: + ill appearing and + lethargic Eyes: PERRL, conjunctivae normal, anicteric sclerae ENMT: external ear and nose normal, oropharynx normal Neck: trachea midline, no thyromegaly Respiratory: no respiratory distress and no labored breathing Cardiovascular: Rate/Rhythm: regular rate and regular rhythm Heart Sounds: + murmur (Grade 2 over 6 systolic) Vessels: no JVD Extremities: no edema Gastrointestinal (Abdomen): normal bowel sounds, soft, nontender, no hepatosplenomegaly Musculoskeletal: Head/Neck/Chest: head atraumatic Results & Data Results & Data Vital Signs (Past 12 Hours) Vital Signs Temp Pulse Resp BP Pulse Ox 01/18/24 10:44 127/44 L 01/18/24 10:44 36.5 C 01/18/24 10:00 82 18 100 01/18/24 09:03 89 24 98 01/18/24 08:12 75 17 97 01/18/24 07:03 84 21 100 01/18/24 06:49 76 01/18/24 06:12 73 19 100 01/18/24 05:00 78 16 95 01/18/24 04:50 36.6 C 01/18/24 04:06 78 20 98 01/18/24 03:06 77 21 100 01/18/24 02:15 84 23 100 01/18/24 01:09 124/55 L 01/18/24 01:06 77 18 98 01/18/24 01:01 78 01/18/24 00:42 82 22 98 01/18/24 00:12 83 16 100 01/17/24 23:30 87 19 96 Coding Level of Care Code 69433 CRITICAL CARE 1ST 30-74M Diagnoses Septic shock A41.9; R65.21 Hematuria R31.9 Severe aortic stenosis I35.0 Acute hypotension I95.9 Complicated urinary tract infection N39.0 Cardiogenic shock R57.0 Hemorrhagic shock R57.8
--- NOTE | 2024-01-18 12:51 | Hospitalist Progress Note ---
Date of Service January 18, 2024 Assessment & Plan (1) Septic shock: (2) Emphysematous cystitis: (3) Acute blood loss anemia: (4) CAD (coronary artery disease): (5) S/P coronary angioplasty: (6) Severe aortic stenosis: (7) Hyperglycemia due to type 2 diabetes mellitus: Plan This is an 83-year-old male who has a significant past medical history of CAD, chronic HFrEF with EF of 15% and current LifeVest in place, LBBB, aortic valve stenosis, HTN, HLD, T2DM and history of tobacco abuse who presents to ED secondary to gross hematuria. Pt recently hospitalized at 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 S/P PCI x 6. EF post PCI was 30%, life vest placed, moderate to severe Hospital course complicated with ABL 2/2 Gross hematuria with mejia catheter requiring CBI, Hgb at d/c was 7.8. Discharged on GDMT with entreso, aldactone, metoprolol, jardiance, asa, plavix, statin and amiodarone due to vfib arrest Presents back to ED now secondary to gross hematuria around cath site, EMS found pt lethargic, SBP 90s. Received total of 1L of IVF in ED along with current ongoing infusion of 125cc/hr. Started on empiric Vanco and cefepime. Blood and urine cultures obtained, Lactic acidosis climbing on admission to 8.0, hgb down to 6.8. --CT abd pelvis:Mejia catheter is noted within a markedly distended urinary bladder which contains a large air-fluid level with intraluminal dependent debris/hemorrhage. Additionally, there is extensive air within the bladder wall suggestive of emphysematous cystitis with air extending into the adjacent pelvic veins, femoral veins, IVC and splenic vein.2. Small amount of portal venous gas within the left hepatic lobe. No definite pneumatosis or pneumoperitoneum.3. No bowel obstruction or bowel wall thickening.4. Bilateral mild to moderate hydroureteronephrosis secondary to the urinary bladder distention.5. Asymmetric deep tissue edema within the right proximal thigh may be on a post procedural bases. No large discrete hematoma identified. Septic Shock and cardiogenic shock Emphysematous cystitis Klebsiella bacteremia Klebsiella UTI admitted to ICU (Dr. Rodrigues) initially plan was to transfer to [facility] when bed available, transfer initiated by ED Dr. Mooney, however now denied as he is improving Consulted urology - Mejia now draining well, recommend to keep for ~ 2 weeks, cont. abx treatment Consulted cardiology - continue dual antiplatelet therapy (given recent stents), transfuse prn, hold entresto, spironolactone Continue IV cefepime for now WBC increased from 18K to 36K today continue Norepi infusion, goal MAP 65. 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 post obstructive in setting of bladder hemorrhage vs ATN in setting of hypovolemia/shock seen by urology, catheter now draining well Cr improved now to 1 DVT ppx: SCDS given acute bleeding FULL CODE as discussed with at bedside PCP: Dr. Flores Dispo: ICU Admission and Anticipated Discharge Date Admission Date: January 17, 2024 Subjective Pt seen in follow up Currently in ICU d/t shock an pressor requirement Positive for Klebsiella in urine and blood + hematuria , + Mejia Recently discharged from [facility], s/p JULIET x6, on DOAC, low EF, Hx of [id number] cardiac arrest, for which he was transferred to [facility]. Currently laying in bed in [facility], family present at the bedside Pt is somnolent but arousable, currently without any acute complaints denies any chest pain, palpitations, shortness of breath, abd. pain, n/v Discussed w/ RN - pressor requirement going down Review of Systems Review of Systems: All systems reviewed & are unremarkable except as noted in Subjective Physical Exam Physical Exam: Constitutional: + ill appearing e lderly M + lethar gic, on suppl. O2 Eyes: PERRL, conjunctiva e normal, anicteri c sclerae ENMT: external ear and n ose normal Neck: +IJ line Respiratory: no respiratory dis tress and no labor ed breathing Cardiovascular: regular rate and r egular rhythm Hea rt Sounds: + syst. murmur , no LE ed karma Gastrointestinal ( Abdomen): normal bowel sound s, soft, nontender +Mejia (hematuria ) Musculoskeletal: Head/Neck/Chest: h ead atraumatic Results & Data Results & Data Vital Signs (Past 12 Hours) Vital Signs Temp Pulse Resp BP Pulse Ox O2 Del Method O2 Flow Rate 01/18/24 11:18 84 19 100 01/18/24 10:51 118/64 01/18/24 10:51 118/64 01/18/24 10:51 83 21 100 01/18/24 10:44 127/44 L 01/18/24 10:44 36.5 C 01/18/24 10:00 82 18 100 01/18/24 09:03 89 24 98 01/18/24 08:12 75 17 97 01/18/24 07:45 Nasal Cannula 2 01/18/24 07:03 84 21 100 01/18/24 06:49 76 01/18/24 06:12 73 19 100 01/18/24 05:00 78 16 95 01/18/24 04:50 36.6 C 01/18/24 04:06 78 20 98 01/18/24 03:06 77 21 100 01/18/24 02:15 84 23 100 01/18/24 01:09 124/55 L 01/18/24 01:06 77 18 98 01/18/24 01:01 78 Laboratory Results 01/18/24 01/18/24 01/18/24 Range/Units 12:58 10:04 09:15 WBC (4.8-10.8) K/ul RBC (4.70-6.10) M/uL Hgb (14.0-18.0) g/dl Hct (42.0-52.0) % MCV (80.0-100.0) fL MCH (25.0-34.0) pg MCHC (32.0-36.0) g/dL RDW Std Deviation (36.4-46.3) fL RDW Coeff of Erendira (11.5-14.5) % Plt Count (130-400) K/uL MPV (9.4-12.4) fL Immature Gran % (Auto) % Neut % (Auto) % Lymph % (Auto) % [place] % (Auto) % Eos % (Auto) % Baso % (Auto) % Neut # (Auto) (1.40-6.50) K/uL Lymph # (Auto) (1.20-3.40) K/uL [place] # (Auto) (0.11-0.59) K/uL Eos # (Auto) (0.00-0.50) K/uL Baso # (Auto) (0.00-0.20) K/uL Immature Gran # (Auto) (0.01-0.20) K/uL Polychromasia Echinocytes Sodium (136-145) mmol/L Potassium (3.5-5.1) mmol/L Chloride (98-107) mmol/L Carbon Dioxide (21-32) mmol/L Anion Gap (3-11) BUN (6-23) mg/dl Creatinine (0.6-1.4) mg/dl Est Cr Clr Drug Dosing ml/min eGFR BUN/Creatinine Ratio (10-20) Glucose (70-99(Fasting)) mg/dl POC Glucose (other) 156 H 157 H 157 H (70-99) mg/dl Calcium (8.6-10.3) mg/dl Phosphorus (2.5-4.9) mg/dl Magnesium (1.7-2.4) mg/dl Total Bilirubin (0.2-1.0) mg/dl Direct Bilirubin (0-0.2) mg/dl AST (13-39) U/L ALT (7-52) U/L Alkaline Phosphatase (34-104) U/L Troponin I High Sens (0-20) pg/ml Total Protein (6.0-8.3) gm/dl Albumin (3.4-5.0) gm/dl Random Cortisol mcg/dl Random Vancomycin (10-20) mcg/ml Enterobacterales (PCR) (NotDetected) Klebsiella oxytoca PCR (NotDetected) mcr-1 Colistin Res Gene PCR (NotDetected) blaIMP Car res Gene PCR (NotDetected) KPC-Carbap Res Gene PCR (NotDetected) blaNDM Car Res Gene PCR (NotDetected) OXA-48 Carbapenem Resis Gene (PCR) (NotDetected) blaVIM Car Res Gene PCR (NotDetected) CTX-M Gene Resistance (PCR) (NotDetected) Bld Cult ID Panel PCR (NotDetected) Crossmatch 01/18/24 01/18/24 01/18/24 Range/Units 08:20 07:53 06:44 WBC (4.8-10.8) K/ul RBC (4.70-6.10) M/uL Hgb (14.0-18.0) g/dl Hct (42.0-52.0) % MCV (80.0-100.0) fL MCH (25.0-34.0) pg MCHC (32.0-36.0) g/dL RDW Std Deviation (36.4-46.3) fL RDW Coeff of Erendira (11.5-14.5) % Plt Count (130-400) K/uL MPV (9.4-12.4) fL Immature Gran % (Auto) % Neut % (Auto) % Lymph % (Auto) % [place] % (Auto) % Eos % (Auto) % Baso % (Auto) % Neut # (Auto) (1.40-6.50) K/uL Lymph # (Auto) (1.20-3.40) K/uL [place] # (Auto) (0.11-0.59) K/uL Eos # (Auto) (0.00-0.50) K/uL Baso # (Auto) (0.00-0.20) K/uL Immature Gran # (Auto) (0.01-0.20) K/uL Polychromasia Echinocytes Sodium 135 L (136-145) mmol/L Potassium 4.0 (3.5-5.1) mmol/L Chloride 106 (98-107) mmol/L Carbon Dioxide 18 L (21-32) mmol/L Anion Gap 11 (3-11) BUN 40 H (6-23) mg/dl Creatinine 1.04 (0.6-1.4) mg/dl Est Cr Clr Drug Dosing 58.0 ml/min eGFR 70.80 BUN/Creatinine Ratio 38.5 H (10-20) Glucose 157 H (70-99(Fasting)) mg/dl POC Glucose (other) 162 H 157 H (70-99) mg/dl Calcium 8.2 L (8.6-10.3) mg/dl Phosphorus (2.5-4.9) mg/dl Magnesium 2.4 (1.7-2.4) mg/dl Total Bilirubin (0.2-1.0) mg/dl Direct Bilirubin (0-0.2) mg/dl AST (13-39) U/L ALT (7-52) U/L Alkaline Phosphatase (34-104) U/L Troponin I High Sens (0-20) pg/ml Total Protein (6.0-8.3) gm/dl Albumin (3.4-5.0) gm/dl Random Cortisol mcg/dl Random Vancomycin (10-20) mcg/ml Enterobacterales (PCR) (NotDetected) Klebsiella oxytoca PCR (NotDetected) mcr-1 Colistin Res Gene PCR (NotDetected) blaIMP Car res Gene PCR (NotDetected) KPC-Carbap Res Gene PCR (NotDetected) blaNDM Car Res Gene PCR (NotDetected) OXA-48 Carbapenem Resis Gene (PCR) (NotDetected) blaVIM Car Res Gene PCR (NotDetected) CTX-M Gene Resistance (PCR) (NotDetected) Bld Cult ID Panel PCR (NotDetected) Crossmatch 01/18/24 01/18/24 01/18/24 Range/Units 05:45 04:51 04:12 WBC 36.60 H* D (4.8-10.8) K/ul RBC 3.24 L (4.70-6.10) M/uL Hgb 9.1 L (14.0-18.0) g/dl Hct 27.2 L (42.0-52.0) % MCV 84.0 D (80.0-100.0) fL MCH 28.1 (25.0-34.0) pg MCHC 33.5 (32.0-36.0) g/dL RDW Std Deviation 46.7 H (36.4-46.3) fL RDW Coeff of Erendira 15.6 H (11.5-14.5) % Plt Count 245 (130-400) K/uL MPV 9.6 (9.4-12.4) fL Immature Gran % (Auto) 3.1 % Neut % (Auto) 89.1 % Lymph % (Auto) 2.7 % [place] % (Auto) 4.8 % Eos % (Auto) 0.0 % Baso % (Auto) 0.3 % Neut # (Auto) 32.59 H (1.40-6.50) K/uL Lymph # (Auto) 0.99 L (1.20-3.40) K/uL [place] # (Auto) 1.76 H (0.11-0.59) K/uL Eos # (Auto) 0.01 (0.00-0.50) K/uL Baso # (Auto) 0.11 (0.00-0.20) K/uL Immature Gran # (Auto) 1.14 H (0.01-0.20) K/uL Polychromasia 1+ Echinocytes 1+ Sodium 133 L (136-145) mmol/L Potassium 4.0 (3.5-5.1) mmol/L Chloride 106 (98-107) mmol/L Carbon Dioxide 18 L (21-32) mmol/L Anion Gap 9 (3-11) BUN 42 H (6-23) mg/dl Creatinine 1.24 (0.6-1.4) mg/dl Est Cr Clr Drug Dosing 48.7 ml/min eGFR 57.33 BUN/Creatinine Ratio 33.9 H (10-20) Glucose 154 H (70-99(Fasting)) mg/dl POC Glucose (other) 157 H 155 H (70-99) mg/dl Calcium 8.0 L (8.6-10.3) mg/dl Phosphorus 3.9 (2.5-4.9) mg/dl Magnesium 2.4 (1.7-2.4) mg/dl Total Bilirubin 0.9 (0.2-1.0) mg/dl Direct Bilirubin 0.2 (0-0.2) mg/dl AST 97 H (13-39) U/L ALT 22 (7-52) U/L Alkaline Phosphatase 58 (34-104) U/L Troponin I High Sens (0-20) pg/ml Total Protein 6.0 (6.0-8.3) gm/dl Albumin 3.3 L (3.4-5.0) gm/dl Random Cortisol 34.14 mcg/dl Random Vancomycin 9.6 L (10-20) mcg/ml Enterobacterales (PCR) (NotDetected) Klebsiella oxytoca PCR (NotDetected) mcr-1 Colistin Res Gene PCR (NotDetected) blaIMP Car res Gene PCR (NotDetected) KPC-Carbap Res Gene PCR (NotDetected) blaNDM Car Res Gene PCR (NotDetected) OXA-48 Carbapenem Resis Gene (PCR) (NotDetected) blaVIM Car Res Gene PCR (NotDetected) CTX-M Gene Resistance (PCR) (NotDetected) Bld Cult ID Panel PCR (NotDetected) Crossmatch 01/18/24 01/18/24 01/18/24 Range/Units 03:47 02:52 01:45 WBC (4.8-10.8) K/ul RBC (4.70-6.10) M/uL Hgb (14.0-18.0) g/dl Hct (42.0-52.0) % MCV (80.0-100.0) fL MCH (25.0-34.0) pg MCHC (32.0-36.0) g/dL RDW Std Deviation (36.4-46.3) fL RDW Coeff of Erendira (11.5-14.5) % Plt Count (130-400) K/uL MPV (9.4-12.4) fL Immature Gran % (Auto) % Neut % (Auto) % Lymph % (Auto) % [place] % (Auto) % Eos % (Auto) % Baso % (Auto) % Neut # (Auto) (1.40-6.50) K/uL Lymph # (Auto) (1.20-3.40) K/uL [place] # (Auto) (0.11-0.59) K/uL Eos # (Auto) (0.00-0.50) K/uL Baso # (Auto) (0.00-0.20) K/uL Immature Gran # (Auto) (0.01-0.20) K/uL Polychromasia Echinocytes Sodium (136-145) mmol/L Potassium (3.5-5.1) mmol/L Chloride (98-107) mmol/L Carbon Dioxide (21-32) mmol/L Anion Gap (3-11) BUN (6-23) mg/dl Creatinine (0.6-1.4) mg/dl Est Cr Clr Drug Dosing ml/min eGFR BUN/Creatinine Ratio (10-20) Glucose (70-99(Fasting)) mg/dl POC Glucose (other) 153 H 150 H 163 H (70-99) mg/dl Calcium (8.6-10.3) mg/dl Phosphorus (2.5-4.9) mg/dl Magnesium (1.7-2.4) mg/dl Total Bilirubin (0.2-1.0) mg/dl Direct Bilirubin (0-0.2) mg/dl AST (13-39) U/L ALT (7-52) U/L Alkaline Phosphatase (34-104) U/L Troponin I High Sens (0-20) pg/ml Total Protein (6.0-8.3) gm/dl Albumin (3.4-5.0) gm/dl Random Cortisol mcg/dl Random Vancomycin (10-20) mcg/ml Enterobacterales (PCR) (NotDetected) Klebsiella oxytoca PCR (NotDetected) mcr-1 Colistin Res Gene PCR (NotDetected) blaIMP Car res Gene PCR (NotDetected) KPC-Carbap Res Gene PCR (NotDetected) blaNDM Car Res Gene PCR (NotDetected) OXA-48 Carbapenem Resis Gene (PCR) (NotDetected) blaVIM Car Res Gene PCR (NotDetected) CTX-M Gene Resistance (PCR) (NotDetected) Bld Cult ID Panel PCR (NotDetected) Crossmatch 01/18/24 01/18/24 01/17/24 Range/Units 00:53 00:30 23:47 WBC (4.8-10.8) K/ul RBC (4.70-6.10) M/uL Hgb (14.0-18.0) g/dl Hct (42.0-52.0) % MCV (80.0-100.0) fL MCH (25.0-34.0) pg MCHC (32.0-36.0) g/dL RDW Std Deviation (36.4-46.3) fL RDW Coeff of Erendira (11.5-14.5) % Plt Count (130-400) K/uL MPV (9.4-12.4) fL Immature Gran % (Auto) % Neut % (Auto) % Lymph % (Auto) % [place] % (Auto) % Eos % (Auto) % Baso % (Auto) % Neut # (Auto) (1.40-6.50) K/uL Lymph # (Auto) (1.20-3.40) K/uL [place] # (Auto) (0.11-0.59) K/uL Eos # (Auto) (0.00-0.50) K/uL Baso # (Auto) (0.00-0.20) K/uL Immature Gran # (Auto) (0.01-0.20) K/uL Polychromasia Echinocytes Sodium 133 L (136-145) mmol/L Potassium 4.4 (3.5-5.1) mmol/L Chloride 106 (98-107) mmol/L Carbon Dioxide 18 L (21-32) mmol/L Anion Gap 9 (3-11) BUN 46 H (6-23) mg/dl Creatinine 1.39 (0.6-1.4) mg/dl Est Cr Clr Drug Dosing 43.4 ml/min eGFR 49.99 BUN/Creatinine Ratio 33.1 H (10-20) Glucose 169 H (70-99(Fasting)) mg/dl POC Glucose (other) 167 H 168 H (70-99) mg/dl Calcium 8.1 L (8.6-10.3) mg/dl Phosphorus (2.5-4.9) mg/dl Magnesium 2.4 (1.7-2.4) mg/dl Total Bilirubin (0.2-1.0) mg/dl Direct Bilirubin (0-0.2) mg/dl AST (13-39) U/L ALT (7-52) U/L Alkaline Phosphatase (34-104) U/L Troponin I High Sens (0-20) pg/ml Total Protein (6.0-8.3) gm/dl Albumin (3.4-5.0) gm/dl Random Cortisol mcg/dl Random Vancomycin (10-20) mcg/ml Enterobacterales (PCR) (NotDetected) Klebsiella oxytoca PCR (NotDetected) mcr-1 Colistin Res Gene PCR (NotDetected) blaIMP Car res Gene PCR (NotDetected) KPC-Carbap Res Gene PCR (NotDetected) blaNDM Car Res Gene PCR (NotDetected) OXA-48 Carbapenem Resis Gene (PCR) (NotDetected) blaVIM Car Res Gene PCR (NotDetected) CTX-M Gene Resistance (PCR) (NotDetected) Bld Cult ID Panel PCR (NotDetected) Crossmatch 01/17/24 01/17/24 01/17/24 Range/Units 22:52 22:16 22:01 WBC (4.8-10.8) K/ul RBC (4.70-6.10) M/uL Hgb (14.0-18.0) g/dl Hct (42.0-52.0) % MCV (80.0-100.0) fL MCH (25.0-34.0) pg MCHC (32.0-36.0) g/dL RDW Std Deviation (36.4-46.3) fL RDW Coeff of Erendira (11.5-14.5) % Plt Count (130-400) K/uL MPV (9.4-12.4) fL Immature Gran % (Auto) % Neut % (Auto) % Lymph % (Auto) % [place] % (Auto) % Eos % (Auto) % Baso % (Auto) % Neut # (Auto) (1.40-6.50) K/uL Lymph # (Auto) (1.20-3.40) K/uL [place] # (Auto) (0.11-0.59) K/uL Eos # (Auto) (0.00-0.50) K/uL Baso # (Auto) (0.00-0.20) K/uL Immature Gran # (Auto) (0.01-0.20) K/uL Polychromasia Echinocytes Sodium 134 L (136-145) mmol/L Potassium 4.6 (3.5-5.1) mmol/L Chloride 105 (98-107) mmol/L Carbon Dioxide 20 L (21-32) mmol/L Anion Gap 9 (3-11) BUN 46 H (6-23) mg/dl Creatinine 1.46 H (0.6-1.4) mg/dl Est Cr Clr Drug Dosing 41.3 ml/min eGFR 47.13 BUN/Creatinine Ratio 31.5 H (10-20) Glucose 179 H (70-99(Fasting)) mg/dl POC Glucose (other) 167 H 177 H (70-99) mg/dl Calcium 8.3 L (8.6-10.3) mg/dl Phosphorus (2.5-4.9) mg/dl Magnesium 2.4 (1.7-2.4) mg/dl Total Bilirubin (0.2-1.0) mg/dl Direct Bilirubin (0-0.2) mg/dl AST (13-39) U/L ALT (7-52) U/L Alkaline Phosphatase (34-104) U/L Troponin I High Sens 36137.3 H* D (0-20) pg/ml Total Protein (6.0-8.3) gm/dl Albumin (3.4-5.0) gm/dl Random Cortisol mcg/dl Random Vancomycin (10-20) mcg/ml Enterobacterales (PCR) (NotDetected) Klebsiella oxytoca PCR (NotDetected) mcr-1 Colistin Res Gene PCR (NotDetected) blaIMP Car res Gene PCR (NotDetected) KPC-Carbap Res Gene PCR (NotDetected) blaNDM Car Res Gene PCR (NotDetected) OXA-48 Carbapenem Resis Gene (PCR) (NotDetected) blaVIM Car Res Gene PCR (NotDetected) CTX-M Gene Resistance (PCR) (NotDetected) Bld Cult ID Panel PCR (NotDetected) Crossmatch 01/17/24 01/17/24 01/17/24 Range/Units 20:46 19:46 19:26 WBC (4.8-10.8) K/ul RBC (4.70-6.10) M/uL Hgb (14.0-18.0) g/dl Hct (42.0-52.0) % MCV (80.0-100.0) fL MCH (25.0-34.0) pg MCHC (32.0-36.0) g/dL RDW Std Deviation (36.4-46.3) fL RDW Coeff of Erendira (11.5-14.5) % Plt Count (130-400) K/uL MPV (9.4-12.4) fL Immature Gran % (Auto) % Neut % (Auto) % Lymph % (Auto) % [place] % (Auto) % Eos % (Auto) % Baso % (Auto) % Neut # (Auto) (1.40-6.50) K/uL Lymph # (Auto) (1.20-3.40) K/uL [place] # (Auto) (0.11-0.59) K/uL Eos # (Auto) (0.00-0.50) K/uL Baso # (Auto) (0.00-0.20) K/uL Immature Gran # (Auto) (0.01-0.20) K/uL Polychromasia Echinocytes Sodium 134 L (136-145) mmol/L Potassium 4.5 D (3.5-5.1) mmol/L Chloride 106 (98-107) mmol/L Carbon Dioxide 19 L (21-32) mmol/L Anion Gap 9 (3-11) BUN 48 H (6-23) mg/dl Creatinine 1.60 H (0.6-1.4) mg/dl Est Cr Clr Drug Dosing 37.7 ml/min eGFR 42.22 BUN/Creatinine Ratio 30.0 H (10-20) Glucose 197 H (70-99(Fasting)) mg/dl POC Glucose (other) 194 H 199 H (70-99) mg/dl Calcium 8.3 L (8.6-10.3) mg/dl Phosphorus (2.5-4.9) mg/dl Magnesium 2.3 (1.7-2.4) mg/dl Total Bilirubin (0.2-1.0) mg/dl Direct Bilirubin (0-0.2) mg/dl AST (13-39) U/L ALT (7-52) U/L Alkaline Phosphatase (34-104) U/L Troponin I High Sens (0-20) pg/ml Total Protein (6.0-8.3) gm/dl Albumin (3.4-5.0) gm/dl Random Cortisol mcg/dl Random Vancomycin (10-20) mcg/ml Enterobacterales (PCR) (NotDetected) Klebsiella oxytoca PCR (NotDetected) mcr-1 Colistin Res Gene PCR (NotDetected) blaIMP Car res Gene PCR (NotDetected) KPC-Carbap Res Gene PCR (NotDetected) blaNDM Car Res Gene PCR (NotDetected) OXA-48 Carbapenem Resis Gene (PCR) (NotDetected) blaVIM Car Res Gene PCR (NotDetected) CTX-M Gene Resistance (PCR) (NotDetected) Bld Cult ID Panel PCR (NotDetected) Crossmatch 01/17/24 01/17/24 01/17/24 Range/Units 18:40 17:40 15:36 WBC (4.8-10.8) K/ul RBC (4.70-6.10) M/uL Hgb (14.0-18.0) g/dl Hct (42.0-52.0) % MCV (80.0-100.0) fL MCH (25.0-34.0) pg MCHC (32.0-36.0) g/dL RDW Std Deviation (36.4-46.3) fL RDW Coeff of Erendira (11.5-14.5) % Plt Count (130-400) K/uL MPV (9.4-12.4) fL Immature Gran % (Auto) % Neut % (Auto) % Lymph % (Auto) % [place] % (Auto) % Eos % (Auto) % Baso % (Auto) % Neut # (Auto) (1.40-6.50) K/uL Lymph # (Auto) (1.20-3.40) K/uL [place] # (Auto) (0.11-0.59) K/uL Eos # (Auto) (0.00-0.50) K/uL Baso # (Auto) (0.00-0.20) K/uL Immature Gran # (Auto) (0.01-0.20) K/uL Polychromasia Echinocytes Sodium (136-145) mmol/L Potassium (3.5-5.1) mmol/L Chloride (98-107) mmol/L Carbon Dioxide (21-32) mmol/L Anion Gap (3-11) BUN (6-23) mg/dl Creatinine (0.6-1.4) mg/dl Est Cr Clr Drug Dosing ml/min eGFR BUN/Creatinine Ratio (10-20) Glucose (70-99(Fasting)) mg/dl POC Glucose (other) 204 H 218 H (70-99) mg/dl Calcium (8.6-10.3) mg/dl Phosphorus (2.5-4.9) mg/dl Magnesium (1.7-2.4) mg/dl Total Bilirubin (0.2-1.0) mg/dl Direct Bilirubin (0-0.2) mg/dl AST (13-39) U/L ALT (7-52) U/L Alkaline Phosphatase (34-104) U/L Troponin I High Sens 21617.7 H* D (0-20) pg/ml Total Protein (6.0-8.3) gm/dl Albumin (3.4-5.0) gm/dl Random Cortisol mcg/dl Random Vancomycin (10-20) mcg/ml Enterobacterales (PCR) (NotDetected) Klebsiella oxytoca PCR (NotDetected) mcr-1 Colistin Res Gene PCR (NotDetected) blaIMP Car res Gene PCR (NotDetected) KPC-Carbap Res Gene PCR (NotDetected) blaNDM Car Res Gene PCR (NotDetected) OXA-48 Carbapenem Resis Gene (PCR) (NotDetected) blaVIM Car Res Gene PCR (NotDetected) CTX-M Gene Resistance (PCR) (NotDetected) Bld Cult ID Panel PCR (NotDetected) Crossmatch 01/17/24 Range/Units 08:44 WBC (4.8-10.8) K/ul RBC (4.70-6.10) M/uL Hgb (14.0-18.0) g/dl Hct (42.0-52.0) % MCV (80.0-100.0) fL MCH (25.0-34.0) pg MCHC (32.0-36.0) g/dL RDW Std Deviation (36.4-46.3) fL RDW Coeff of Erendira (11.5-14.5) % Plt Count (130-400) K/uL MPV (9.4-12.4) fL Immature Gran % (Auto) % Neut % (Auto) % Lymph % (Auto) % [place] % (Auto) % Eos % (Auto) % Baso % (Auto) % Neut # (Auto) (1.40-6.50) K/uL Lymph # (Auto) (1.20-3.40) K/uL [place] # (Auto) (0.11-0.59) K/uL Eos # (Auto) (0.00-0.50) K/uL Baso # (Auto) (0.00-0.20) K/uL Immature Gran # (Auto) (0.01-0.20) K/uL Polychromasia Echinocytes Sodium (136-145) mmol/L Potassium (3.5-5.1) mmol/L Chloride (98-107) mmol/L Carbon Dioxide (21-32) mmol/L Anion Gap (3-11) BUN (6-23) mg/dl Creatinine (0.6-1.4) mg/dl Est Cr Clr Drug Dosing ml/min eGFR BUN/Creatinine Ratio (10-20) Glucose (70-99(Fasting)) mg/dl POC Glucose (other) (70-99) mg/dl Calcium (8.6-10.3) mg/dl Phosphorus (2.5-4.9) mg/dl Magnesium (1.7-2.4) mg/dl Total Bilirubin (0.2-1.0) mg/dl Direct Bilirubin (0-0.2) mg/dl AST (13-39) U/L ALT (7-52) U/L Alkaline Phosphatase (34-104) U/L Troponin I High Sens (0-20) pg/ml Total Protein (6.0-8.3) gm/dl Albumin (3.4-5.0) gm/dl Random Cortisol mcg/dl Random Vancomycin (10-20) mcg/ml Enterobacterales (PCR) DETECTED A (NotDetected) Klebsiella oxytoca PCR DETECTED A (NotDetected) mcr-1 Colistin Res Gene PCR Not Detected (NotDetected) blaIMP Car res Gene PCR Not Detected (NotDetected) KPC-Carbap Res Gene PCR Not Detected (NotDetected) blaNDM Car Res Gene PCR Not Detected (NotDetected) OXA-48 Carbapenem Resis Gene (PCR) Not Detected (NotDetected) blaVIM Car Res Gene PCR Not Detected (NotDetected) CTX-M Gene Resistance (PCR) Not Detected (NotDetected) Bld Cult ID Panel PCR See PCR Comment (NotDetected) Crossmatch See Detail Medications Administered Current Inpatient Medications Aspirin (Aspirin 81 Mg Ectab) [address] [facility] Stop: 02/17/24 11:14 Last Admin: 01/18/24 13:00 Dose: 81 mg Atorvastatin Calcium (Atorvastatin 40 Mg Tab) [address] [facility] Stop: 02/17/24 08:59 Last Admin: 01/18/24 08:00 Dose: 40 mg Clopidogrel Bisulfate (Clopidogrel Bisulfate 75 Mg Tab) [address] [facility] Stop: 02/17/24 11:14 Last Admin: 01/18/24 12:59 Dose: 75 mg Dextrose (Dextrose 50% 50 Ml Syringe) 25 - 50 ml IV UD PRN; Protocol PRN Reason: Hypoglycemia Protocol Stop: 02/16/24 12:44 Glucagon (Glucagon For Inj 1 Mg Vial) 1 mg SQ UD PRN; Protocol PRN Reason: Hypoglycemia Protocol Stop: 02/16/24 12:44 Glucose (Glucose 40% Gel 15 Gm Tube) 15 - 30 gm PO UD PRN; Protocol PRN Reason: Hypoglycemia Protocol Stop: 02/16/24 12:44 Glucose (Glucose 10 Tab/Tube) 4 - 8 tab PO UD PRN; Protocol PRN Reason: Hypoglycemia Protocol Stop: 02/16/24 12:44 Norepinephrine Bitartrate (Levophed/D5w) 4 mg in 250 mls @ 6.833 mls/hr IV .Q24H [facility]; Protocol Stop: 02/16/24 10:44 Last Titration: 01/18/24 16:43 Dose: 0 mcg/kg/min, 0 mls/hr Cefepime HCl (Maxipime 2000mg) 2,000 mg in 20 mls @ 5 mls/min IV Q12H [facility]; Protocol Stop: 01/27/24 21:59 Last Admin: 01/18/24 09:48 Dose: 5 mls/min Acetaminophen (Ofirmev) 1,000 mg in 100 mls @ 400 mls/hr IV Q8H PRN PRN Reason: Pain or Fever Stop: 01/20/24 22:57 Last Infusion: 01/18/24 00:15 Dose: Infused Insulin Aspart (Insulin Aspart Per Unit Charge) 0 units SC Q6 [facility] Stop: 02/17/24 11:59 Last Admin: 01/18/24 13:02 Dose: Not Given Miscellaneous (Carbohydrates For Hypoglycemia ) 15 - 30 gm PO UD PRN PRN Reason: Hypoglycemia Treatment Stop: 02/16/24 12:44 Miscellaneous Information (Pharmacy Glycemic Mgmt Consult) 1 each N/A UD PRN PRN Reason: Consult Stop: 02/16/24 12:21
[2024-01-18] MEDS: CLOPIDOGREL BISULFATE 75 MG TAB PO SCH (12:59)
[2024-01-18] MEDS: ASPIRIN 81 MG ECTAB PO SCH (13:00)
[2024-01-18] MEDS: INSULIN ASPART PER UNIT CHARGE SC SCH (13:02)
[2024-01-19 05:17] LABS: Hematocrit (blood only) 27.2 % (42.0-52.0); Hemoglobin 8.8 g/dl (14.0-18.0); Mean Corpuscular Hemoglobin 27.7 pg (25.0-34.0); Mean Corpuscular Hgb Conc 32.4 g/dL (32.0-36.0); Mean Corpuscular Volume 85.5 fL (80.0-100.0); RDW Standard Deviation 49.8 fL (36.4-46.3); Red Blood Count 3.18 M/uL (4.70-6.10); White Blood Count 26.63 K/ul (4.8-10.8)
[2024-01-19 05:18] LABS: Mean Platelet Volume 10.1 fL (9.4-12.4); Platelet Count 196 K/uL (130-400)
[2024-01-19 05:21] LABS: Albumin Level 2.9 gm/dl (3.4-5.0); BUN Creatinine Ratio 43.3 (10-20); Bilirubin Direct 0.3 mg/dl (0-0.2); Bilirubin,Total 0.8 mg/dl (0.2-1.0); Calcium 8.1 mg/dl (8.6-10.3); Creatinine Clr Calc Pharmacy 67.1 ml/min; Magnesium 2.4 mg/dl (1.7-2.4); Phosphorus 3.6 mg/dl (2.5-4.9); Potassium 4.5 mmol/L (3.5-5.1); Total Protein 5.8 gm/dl (6.0-8.3)
[2024-01-19 05:45] LABS: Basophils # (auto) 0.05 K/uL (0.00-0.20); Basophils % (auto) 0.2 %; Dohle Bodies 1+; Echinocytes 1+; Eosinophils # (auto) 0.07 K/uL (0.00-0.50); Eosinophils % (auto) 0.3 %; Immature Granulocytes # (auto) 0.83 K/uL (0.01-0.20); Immature Granulocytes % (auto) 3.1 %; Lymphocytes % (auto) 3.4 %; Monocytes % (auto) 3.8 %; Neutrophils # (auto) 23.78 K/uL (1.40-6.50); Neutrophils % (auto) 89.2 %; Polychromasia 1+
[2024-01-19] MEDS: cefTRIAXone SODIUM 2,000 MG/50 ML BAG IV SCH (07:56)
--- OUTSIDE RECORDS SUMMARY | 2024-01-19 07:56 | External Medical Summary | Summary of Care ---
Author Name Unknown Organization [facility] Address [address] [place] [address] Phone [phone] Care Team Providers Care Pattern Weaver Name Role Phone Alicja Flores MD Primary Care Provider [phone] Reason for Visit * Reason Onset Date Comments Hospital Follow-Up 01/15/2024 2wk hd/fu samuel t needed thanks Anh Encounter Details Date Type Department Care Team (Late st Contact Info) Description 01/15/2024 Telephone Urology, [place] [address] [place] [address] Specified, [facility] No Resource [address] [place] [address] Hospital Follow-Up (2wk hd/fu appt needed ... Allergies No known active allergiesdocumented as of this encounter (statuses as of 01/16/2024) Medications ONE TOUCH ULTRA BONUS PACK KITIndications :DM type 2, goal A1c below 7 as directed 1 0 03/23/19 05 Suspended LANCETS MISCIndication s:DM type 2, goal A1c below 7 once daily 50 11 03/23/19 05 Suspended VITAMIN D 1000 UNIT PO CAPSIndication s:Vitamin D deficiency 1 capsule daily 30 Cap 11 09/25/19 11 Suspended CYANOCOBALAMIN (VITAMIN B-12) 100 MCG Tablet Take 1 Tablet by mouth in the morning. Suspended traMADol HCl 50 MG Oral Tablet (Ultram)Indica tions:Dental abscess Take 1 Tablet by mouth every 6 hours as needed for Pain, Severe. 15 Tablet 06/16/19 23 Suspended Additional Information Patient not taking.Reported on 12/20/2023 OneTouch Ultra In Vitro Strip (Glucose Blood) use to test blood sugars once daily as directed 100 Strip 3 04/02/19 24 Suspended Vitamin C 125 MG Oral Tablet Chewable Take by mouth. Suspe nded Atorvastatin Calcium 40 MG Oral Tablet (Lipitor)Indic ations:Dyslipi demia, goal LDL below 100 Take 1 Tablet by mouth in the morning. 90 Tablet 3 09/04/19 24 Suspended metFORMIN HCl 1000 MG Oral Tablet (Glucophage)In dications:Type 2 diabetes mellitus with hemoglobin A1c goal of less than 8.0% (HCC) TAKE 1 TABLET BY MOUTH TWICE DAILY 180 Tablet 3 09/10/19 24 Suspended glipiZIDE ER 5 MG Oral Tablet Extended Release 24 Hour (Glucotrol XL)Indications :Type 2 diabetes mellitus with hemoglobin A1c goal of less than 8.0% (HCC) TAKE 1 TABLET BY MOUTH EVERY MORNING 90 Tablet 3 11/07/19 24 Suspended Jardiance 25 MG Oral Tablet (Empagliflozin )Indications:T ype 2 diabetes mellitus with hemoglobin A1c goal of less than 8.0% (HCC) TAKE 1 TABLET BY MOUTH ONCE DAILY 90 Tablet 1 11/26/19 24 Suspended Lisinopril-hyd roCHLOROthiazi de 10-12.5 MG Oral TabletIndicati ons:HTN, goal below 140/90 TAKE 1/2 TABLET BY MOUTH EVERY DAY 45 Tablet 2 01/02/20 24 Suspended Entresto 24-26 MG Oral Tablet (sacubitril-va lsartan 24-26 mg per tab) Take 1 Tablet by mouth in the morning and 1 Tablet before bedtime. 60 Tablet 01/14/20 24 024 Discontinued documented as of this encounter (statuses as of 01/16/2024) Active Problems Problem Noted Date Diagnosed Date S/P primary angioplasty with coronary stent 05/2023 Heart failure with reduced e jection fraction (HFrEF, <= 40%) 01/15/2024 LBBB (left bundle branch block) 01/15/2024 Coronary artery disease invo lving [place] coronary artery of [place] heart 01/10/2024 History of cardiac arrest 01/09/2024 Aortic valve stenosis 10/08/2022 Aortic valve sclerosis 04/29/2017 HTN, goal below 140/90 04/18/2015 Overview: Per HTN Protocol #27. Right thyroid nodule 01/29/2011 Vitamin D deficiency 09/24/2010 DYSLIPIDEMIA, GOAL LDL BELOW 100 01/27/2009 Overview (01/27/2009): Per Lipid Taxonomy. History of tobacco use 06/15/2008 Overview (11/19/2018): cigars E.D. 05/03/2008 Type 2 diabetes mellitus wit h hemoglobin A1c goal of less than 7.0% 07/26/2004 Overview (06/07/2015): Per Diabetes Taxonomy. ICD-10 update of inactive term documented as of this encounter (statuses as of 01/16/2024) Resolved Problems Problem Noted Date Diagnosed Date Resolved Date Acute blood loss anemia 01/13/2024 12/0 05/2023 Gross hematuria 01/10/2024 01/15/2024 Encounter for dental examination 01/10/2024 01/15/2024 NSTEMI (non-ST elevated myoc ardial infarction) 01/09/2024 01/15/2024 Type 2 diabetes mellitus wit h hemoglobin [...] HYPERCHOLESTEROLEM 07/26/200401/11 Overview (01/27/2009): Per Lipid Taxonomy. Syncope 05/29/2004 10/30/2016 Open wound of trunk 03/13/2004 10/31/19 17 SCIATICA, RIGHT 06/11/2001 10/30/2016 ELEV BL PRES W-O HYPERTN 06/11/2001 documented as of this encounter (statuses as of 01/16/2024) Immunizations Name Administration Dates Next Due COVID-19 [...] money to get more. Never true 08/03/2021 Sex and Gender Information Value Date Recorded [...] on file documented as of this encounter Functional Status * Are you deaf or do you have serious difficulty hearing? Answer Date of Assessment Author No 01/08/2024 10:54 PM Antonieta Mejia RN * Are you blind or do you have serious difficulty seeing, even when wearing glasses? Answer Date of Assessment Author No 01/08/2024 10:54 PM Antonieta Mejia RN * Do you have serious difficulty walking or climbing stairs? (5 years old or older) Answer Date of Assessment Author No 01/08/2024 10:54 PM Antonieta Mejia RN * Do you have difficulty dressing or bathing? (5 years old or older) Answer Date of Assessment Author No 01/08/2024 10:54 PM Antonieta Mejia RN * Because of a physical, mental, or emotional condition, do you have difficulty doing errands alone such as visiting a doctors office or shopping? (15 years old or older) Answer Date of Assessment Author No 01/08/2024 10:54 PM Antonieta Mejia RN documented as of this encounter Mental Status * Because of a physical, mental, or emotional condition, do you have serious difficulty concentrating, remembering, or making decisions? (5 years old or older) Answer Entry Date Author No 01/08/2024 10:54 PM Antonieta Mejia RN documented in this encounter Miscellaneous Notes * Telephone Encounter - Tana Martel OSA - 01/16/2024 8:06 AM EST Order changed ot 1 wk by Marilu Chapa, Attending is Bradly Miguel. Russ Munoz 01/08/2024 10:02 PM Admission Description: 83 year old male Department: [facility] 8 [facility] Message Patient Name: RUSS MUNOZ([id number]) Sex: Male : 1940 PCP: ALICJA FLORES Center: [facility] Types of orders made on 01/16/2024: IP Post Discharge , Lab, Point of Care Testing Order Date:01/16/2024 Ordering User:MARILU CHAPA [[id number]] Attending Provider:Bradly Miguel MD [[id number]] Authorizing Provider: Marilu Chapa DO [[id number]] Department:[facility] 8 [facility][[id number]] Order Specific Information Order: RETURN APPT [CUSTOM: IP355] Order #: [id number]: [id number] Priority: Routine Class: Nursing Unit Department (Single Entry) -> Urology Appt Needed Within: (Specify # of Days, Weeks, Months) -> 1 Wk Released on: 01/16/2024 8:02 AM Priority: Routine Class: Nursing Unit Department (Single Entry) -> Urology Appt Needed Within: (Specify # of Days, Weeks, Months) -> 1 Wk Released on: 01/16/2024 8:02 AM * Telephone Encounter - Anh Valencia OSA - 01/15/2024 9:12 AM EST Order RETURN APPT [IP355] (Order [id number]) Russ Munoz 01/08/2024 10:02 PM Admission Description: 83 year old male Department: [facility] 8 [facility] Message Patient Name: RUSS MUNOZ([id number]) Sex: Male : 1940 PCP: ALICJA FLORES Center: [facility] Types of orders made on 01/15/2024: IP Post Discharge , Lab, Point of Care Testing, Point of Care Testing - Unsolicited Results Order Date:01/15/2024 Ordering User:RADHIKA TATUM [[id number]] Attending Provider:Bradly Miguel MD [[id number]] Authorizing Provider: Radhika Tatum MD [[id number]] Department:[facility] 8 [facility][[id number]] Order Specific Information Order: RETURN APPT [CUSTOM: IP355] Order #: [id number]: 1 Priority: Routine Class: Nursing Unit Department (Single Entry) -> Urology Appt Needed Within: (Specify # of Days, Weeks, Months) -> 2 Wks Released on: 01/15/2024 9:00 AM Priority: Routine Class: Nursing Unit Department (Single Entry) -> Urology Appt Needed Within: (Specify # of Days, Weeks, Months) -> 2 Wks Released on: 01/15/2024 9:00 AM Order Information Date and Time Department documented in this encounter Plan of Treatment Upcoming Encounters Date Type Department Care Team (Late st Contact Info) Description 03/06/2024 9:40 AM EST Office Visit Family Practice, [place] [address] [phone] Alicja Flores MD [address] [id number] 11/11/2024 9:30 AM EDT Cardiac Studies Cardiac Studies, [facility] [address] [place] [id number] Health Maintenance Due Date Last Done Comments Adult Wellness Visit 08/03/2022 08/03/2021 Diabetic Eye Exam 06/29/2023 06/28/2022, , 08/21/2014, Additional history exists Diabetic Foot Exam 09/02/2023 09/01/2022, 1 2020, 10/21/2019, Additional history exists COVID-19 Vaccine ( season) 2023 01/20/2022, 12/15/2020, 05/19/2020, Additional history exists HbA1c 07/07/2024 01/08/2024, 08/12, 03/04/2023, Additional history exists Depression Screening 09/03/2024 09/04/2023 Albumin/Creatinine Ratio 09/04/2024 024, 08/06/2022, 09/14/2021, Additional history exists B-12 09/04/2024 09/05/2023, 07/13, 09/14/2021, Additional history exists GFR 01/15/2025 01/16/2024, 05/2023, 01/14/2024, Additional history exists DTap/Tdap Vaccines (4 - Td or Tdap) 09/01/2032 09/01/2022, 09/22/2012, 05/12/2004 Pneumococcal Vaccine: 65+ Years Completed 01/13/2015, 12/14/2005 Zoster Vaccines Completed 01/11/2020, 10/12, 09/18/2016 Influenza Vaccine (FLU shot) Completed 09/2023, 11/12/2022, 10/31/2022, Additional history exists HPV (Gardasil) Vaccine Aged Out No lo nger eligible based on patient's age to complete this topic Hepatitis B Vaccine Aged Out No longe r eligible based on patient's age to complete this topic MENINGOCOCCAL (MENACTRA/MENVEO) Aged Out No longer eligible based on patient's age to complete this topic documented as of this encounter Medical Devices Implanted Type Area Fireman Helper Device Identifier Shelf Expiration Date Model / Serial / Lot Stent Dawit 2.25x22 [employer] - [id number] Implanted:Qty: 1 on 01/13/2024 by Nelsy Calvillo MD at [facility] [employer] : VASCULAR [id number] 08/28/2026 [id number] UX / / [id number] Stent [place] 2.0x18 [employer] - [id number] Implanted:Qty: 1 on 01/13/2024 by Nelsy Calvillo MD at [facility] [employer] : VASCULAR [id number] 06/25/2026 [id number] UX / / [id number] Stent [place] 2.50x15 [employer] - [id number] Implanted:Qty: 1 on 01/13/2024 by Nelsy Calvillo MD at [facility] [employer] : VASCULAR 07/22/2026 [id number] UX / / [id number] Stent [place] 2.0x12 [employer] - [id number] Implanted:Qty: 1 on 01/13/2024 by Nelsy Calvillo MD at [facility] [employer] : VASCULAR [id number] 03/05/2026 [id number] UX / / [id number] Stent [place] 2.50x26 [employer] - [id number] Implanted:Qty: 1 on 01/13/2024 by Nelsy Calvillo MD at [facility] [employer] : VASCULAR [id number] 09/24/2026 [id number] UX / / [id number] Stent [place] 2.50x26 [employer] - [id number] Implanted:Qty: 1 on 01/13/2024 by Nelsy Calvillo MD at [facility] [employer] : VASCULAR [id number] 09/24/2026 [id number] UX / / [id number] documented as of this encounter Advance Directives * Full Code (Latest Code Status on File) Date Activated Date Inactivated Comments 01/08/2024 10:30 PM This order r eflects the patients wishes and were consensually agreed upon. Question Answer Comments Discussion of Advance Directives occurred with: Patient Care Teams Pattern Weaver Relationship Specialty Start Date End Date Alicja Flores MD [address] [place] [address] PCP - General 06/09/1998 documented as of this encounter
--- OUTSIDE RECORDS SUMMARY | 2024-01-19 07:56 | External Medical Summary | Summary of Care ---
Author Name Unknown Organization [facility] Address [address] [place] [address] Phone [phone] Care Team Providers Care Computer Compositor Name Role Phone Alicja Flores MD Primary Care Provider Reason for Visit * Reason Onset Date Comments Hospital Follow-Up 01/15/2024 2wk hd/fu samuel t needed thanks Anh Encounter Details Date Type Department Care Team (Late st Contact Info) Description 01/15/2024 Telephone Urology, [place] [address] [place] [address] Specified, [place] No Resource [address] [place] [address] Hospital Follow-Up (2wk hd/fu appt needed ... Allergies No known active allergiesdocumented as of this encounter (statuses as of 01/15/2024) Medications Entresto 24-26 MG Oral Tablet (sacubitril-va lsartan 24-26 mg per tab) Take 1 Tablet by mouth in the morning and 1 Tablet before bedtime. 60 Tablet 4 Active ONE TOUCH ULTRA BONUS PACK KITIndications :DM type 2, goal A1c below 7 as directed 1 0 5 Suspended LANCETS MISCIndication s:DM type 2, goal A1c below 7 once daily 50 11 5 Suspended VITAMIN D 1000 UNIT PO CAPSIndication s:Vitamin D deficiency 1 capsule daily 30 Cap 11 1 Suspended CYANOCOBALAMIN (VITAMIN B-12) 100 MCG Tablet Take 1 Tablet by mouth in the morning. Suspended traMADol HCl 50 MG Oral Tablet (Ultram)Indica tions:Dental abscess Take 1 Tablet by mouth every 6 hours as needed for Pain, Severe. 15 Tablet 3 Suspended Additional Information Patient not taking.Reported on 12/20/2023 OneTouch Ultra In Vitro Strip (Glucose Blood) use to test blood sugars once daily as directed 100 Strip 3 4 Suspended Vitamin C 125 MG Oral Tablet Chewable Take by mouth. Suspe nded Atorvastatin Calcium 40 MG Oral Tablet (Lipitor)Indic ations:Dyslipi demia, goal LDL below 100 Take 1 Tablet by mouth in the morning. 90 Tablet 3 4 Suspended metFORMIN HCl 1000 MG Oral Tablet (Glucophage)In dications:Type 2 diabetes mellitus with hemoglobin A1c goal of less than 8.0% (HCC) TAKE 1 TABLET BY MOUTH TWICE DAILY 180 Tablet 3 4 Suspended glipiZIDE ER 5 MG Oral Tablet Extended Release 24 Hour (Glucotrol XL)Indications :Type 2 diabetes mellitus with hemoglobin A1c goal of less than 8.0% (HCC) TAKE 1 TABLET BY MOUTH EVERY MORNING 90 Tablet 3 4 Suspended Jardiance 25 MG Oral Tablet (Empagliflozin )Indications:T ype 2 diabetes mellitus with hemoglobin A1c goal of less than 8.0% (HCC) TAKE 1 TABLET BY MOUTH ONCE DAILY 90 Tablet 1 4 Suspended Lisinopril-hyd roCHLOROthiazi de 10-12.5 MG Oral TabletIndicati ons:HTN, goal below 140/90 TAKE 1/2 TABLET BY MOUTH EVERY DAY 45 Tablet 2 4 Suspended documented as of this encounter (statuses as of 01/15/2024) Active Problems Problem Noted Date Diagnosed Date Acute blood loss anemia 01/13/2024 Hematuria, gross 01/10/2024 Coronary artery disease invo lving [place] coronary artery of [place] heart 01/10/2024 Encounter for dental examination 01/10/2024 History of cardiac arrest 01/09/2024 NSTEMI (non-ST elevated myocardial infarction) 1 03/10/2023 Aortic valve stenosis 10/08/2022 Aortic valve sclerosis 04/29/2017 HTN, goal below 140/90 04/18/2015 Overview: Per HTN Protocol #27. Right thyroid nodule 01/29/2011 Vitamin D deficiency 09/24/2010 DYSLIPIDEMIA, GOAL LDL BELOW 100 01/27/2009 Overview (01/27/2009): Per Lipid Taxonomy. History of tobacco use 06/15/2008 Overview (11/19/2018): cigars E.D. 05/03/2008 documented as of this encounter (statuses as of 01/15/2024) Resolved Problems Problem Noted Date Diagnosed Date [...] as of this encounter (statuses as of 01/15/2024) Immunizations Name Administration Dates Next Due COVID-19 [...] encounter Miscellaneous Notes * Telephone Encounter - Anh Valencia OSA - 01/15/2024 9:12 AM EST Order RETURN APPT [IP355] (Order [id number]) Ger Munoz 01/08/2024 10:02 PM Admission Description: 83 year old male Department: [facility] 8 [facility] Message Patient Name: GER MUNOZ([id number]) Sex: Male : 1940 PCP: ALICJA FLORES Center: [facility] Types of orders made on 01/15/2024: IP Post Discharge , Lab, Point of Care Testing, Point of Care Testing - Unsolicited Results Order Date:01/15/2024 Ordering User:RADHIKA TATUM [[id number]] Attending Provider:Bradly Miguel MD [[id number]] Authorizing Provider: Radhika Tatum MD [[id number]] Department:[facility] 8 [facility][[id number]] Order Specific Information Order: RETURN APPT [CUSTOM: IP355] Order #: [id number]: [id number] Priority: Routine Class: Nursing Unit Department [...] Description 03/06/2024 9:40 AM EST Office Visit [facility], [place] [address] [phone] Alicja Flores MD [address] [id number] 11/11/2024 9:30 AM EDT Cardiac Studies Cardiac Studies, [facility] [address] [facility] [place] [address] Health Maintenance Due Date Last Done Comments Adult Wellness Visit 08/03/2022 08/03/2021 COVID-19 Vaccine ( season) 2023 01/20/2022, 12/15/2020, 05/19/2020, Additional history exists Depression Screening 09/03/2024 09/04/2023 B-12 09/04/2024 09/05/2023, 07/13, 09/14/2021, Additional history exists GFR 01/14/2025 01/15/2024, 04/2023, 01/13/2024, Additional history exists Albumin/Creatinine Ratio 09/04/2026 024, [...] this encounter Medical Devices Implanted Type Area Sizing Machine Tender Device Identifier Shelf Expiration Date Model / Serial / Lot Stent Dawit 2.25x22 [employer] - [id number] Implanted:Qty: 1 on 01/13/2024 by Nelsy aClvillo MD at [facility] [employer] : VASCULAR [id number] 08/28/2026 [id number] UX / / [id number] Stent [place] 2.0x18 [employer] - [id number] Implanted:Qty: 1 on 01/13/2024 by Nelsy Calvillo MD at [facility] [employer] : VASCULAR [id number] 06/25/2026 [id number] UX / / [id number] Stent [place]it 2.50x15 [employer] - [id number] Implanted:Qty: 1 on 01/13/2024 by Nelsy Calvillo MD at [facility] [employer] : VASCULAR 07/22/2026 [id number] UX / / [id number] Stent [place] 2.0x12 [employer] - [id number] Implanted:Qty: 1 on 01/13/2024 by Nelsy Calvillo MD at [facility] [employer] : VASCULAR [id number] 03/05/2026 [id number] UX / / [id number] Stent [place] 2.50x26 [employer] - [id number] Implanted:Qty: 1 on 01/13/2024 by Nelsy Calvillo MD at [facility] [employer] : VASCULAR [id number] 09/24/2026 [id number] UX / / [id number] Stent [place] 2.50x26 [employer] - [id number] Implanted:Qty: 1 on 01/13/2024 by Nelsy Calvillo MD at [facility] [employer] : VASCULAR [id number] 09/24/2026 [id number] UX / / [id number] documented as of this encounter Advance Directives * Full Code (Latest Code Status on File) Date Activated Date Inactivated Comments 01/08/2024 10:30 PM This order r eflects the patients wishes and were consensually agreed upon. Question Answer Comments Discussion of Advance Directives occurred with: Patient Care Teams Computer Compositor Relationship Specialty Start Date End Date Alicja Flores MD [address] [place] [address] PCP - General 06/09/1998 documented as of this encounter
--- OUTSIDE RECORDS SUMMARY | 2024-01-19 07:56 | External Medical Summary | Summary of Care ---
Author Name Unknown Organization [facility] Address [address] [place] [address] Phone [phone] Care Team Providers Care Scheduling Coordinator Name Role Phone Elvis Flores MD Primary Care Provider [phone] Reason for Referral * Precert (Within 10 days (routine)) - Authorized Specialty Diagnoses / Procedures Referred By Contac t Referred To Contact Radiology Diagnoses Gross hematuria Procedures CT UROGRAPHY W WO CONTRAST Aniket Donovan MD [address] [place] [address] Phone: tel: fax: Referral ID Status Reason Start Date Expiration Date V isits Requested Visits Authorized [id number] Authorized 02/15/2024 999 999 * Evaluate & Treat - Unlimited Visits (Within 30 days (routine)) - Authorized Specialty Diagnoses / Procedures Referred By Contac t Referred To Contact Cardiovascular Medicine / Cardiology Diagnoses Aortic valve stenosis, etiology of cardiac valve disease unspecified Johnathan Brown MD [address] [place] [address] Phone: tel: fax: Robin Humphrey MD [address] [place] [address] Phone: tel: fax: Referral ID Status Reason Start Date Expiration Date Visits Requested Visits Authorized [id number] Authorized Specialty Services Required 01/16/2024 999 999 Question Answer Referral Priority Within 30 days (routine) Where should this appointment be scheduled? [facility] To which of the following clinics are you referring your patient? [facility] - valve Comments eval for TAVR (see admission 01/2024) Discharge Order * Evaluate & Treat - Unlimited Visits (Within 30 days (routine)) - Authorized Specialty Diagnoses / Procedures Referred By Contact Referred To Contact Cardiac Electrophysiology / Cardiology Diagnoses Presence of external cardiac defibrillator History of cardiac arrest Johnathan Brown MD [address] [place] [address] Phone: tel:[phone] fax:[phone] Hayley Vuong IV, MD [address] [place] [address] Phone: tel:[phone] fax:[phone] Referral ID Status Reason Start Date Expiration Date Visits Requested Visits Authorized [id number] Authorized Specialty Services Required 01/16/2024 999 999 Question Answer Referral Priority Within 30 days (routine) Where should this appointment be scheduled? [facility] Comments F/u for VF arrest and ICD consideration, discharge w/Asssure vest Discharge Order * Evaluate & Treat - Unlimited Visits (Within 10 days (routine)) - Authorized Specialty Diagnoses / Procedures Referred By Contac t Referred To Contact CARDIAC REHAB / Cardiology Diagnoses NSTEMI (non-ST elevated myocardial infarction) ([facility]) S/P PTCA (percutaneous transluminal coronary angioplasty) Coral Montero DO [address] [place] [address] Phone: tel: fax: Referral ID Status Reason Start Date Expiration Date Visits Requested Visits Authorized [id number] Authorized Specialty Services Required 01/13/2024 999 999 Question Answer Referral Priority Within 10 days (routine) Where should this appointment be scheduled? [facility] Modality No Preference, either is clinically appropriate Identify Cardiac Risk Low to Moderate Risk Comments Discharge Order Reason for Visit * Auth/Cert Specialty Diagnoses / Procedures Referred By Contac t Referred To Contact Diagnoses aortic stenosis Bradly Miguel MD [address] [place] [address] Phone: tel: fax: Ad[place], [facility] [address] [place] [address] Referral ID Status Reason Start Date Expiration Date Visits Re quested Visits Authorized [id number] Encounter Details Date Type Department Care Team (Latest Contact Info) Description 01/08/2024 10:02 PM EST - 01/16/2024 3:35 PM EST Hospital Encounter [facility], [facility] 8th [address] [place] [address] Bradly Miguel MD [address] [place] [address] Mayelin Kemp MD [address] [place] [address] Pt Handout (on AVS) Discharge Disposition: Home - Self Care Allergies No known active allergiesdocumented as of this encounter (statuses as of 01/17/2024) Medications ONE TOUCH ULTRA BONUS PACK KITIndications [...] Tablet by mouth in the morning. Active OneTouch Ultra In Vitro Strip (Glucose Blood) use to test blood sugars once daily as directed 100 Strip 3 04/02/19 24 Active Vitamin C 125 MG Oral Tablet Chewable Take by mouth. Active Atorvastatin Calcium 40 MG Oral Tablet (Lipitor)Indic [...] DAILY 90 Tablet 1 11/26/19 24 Active Aspirin 81 MG Oral Tablet Chewable Chew and swallow 1 Tablet by mouth in the morning. 30 Tablet 11 01/16/2024 2:39 PM EST 01/17/20 24 Active Amiodarone HCl 200 MG Oral Tablet (Cordarone) Take 1 Tablet by mouth daily with breakfast. 90 Tablet 01/16/2024 2:39 PM EST 01/17/20 24 Active Metoprolol Succinate ER 25 MG Oral Tablet Extended Release 24 Hour (toPROL XL) Take 1 Tablet by mouth in the morning. 30 Tablet 01/16/2024 2:39 PM EST 01/17/20 24 Active Sacubitril-Shala sartan 24-26 MG Oral Tablet (Entresto) Take 1 Tablet by mouth in the morning and 1 Tablet before bedtime. 60 Tablet 01/16/2024 2:39 PM EST 01/16/20 24 Active Spironolactone 25 MG Oral Tablet (Aldactone) Take one-half (0.5) Tablets by mouth in the morning. 30 Tablet 01/16/2024 2:39 PM EST 01/17/20 24 Active Clopidogrel Bisulfate 75 MG Oral Tablet (pLAVix) Take 1 Tablet by mouth in the morning. 30 Tablet 11 01/16/2024 2:39 PM EST 01/17/20 24 Active Tamsulosin HCl 0.4 MG Oral Capsule (Flomax) Take 1 Capsule by mouth every night at bedtime. 30 Capsule 01/16/2024 2:39 PM EST 01/16/20 24 Active Nitroglycerin 0.4 MG Sublingual Tablet Sublingual (Nitrostat) Dissolve 1 tablet under the tongue every 5 minutes as needed for chest pain, for up to 3 doses in 15 minutes and call 911 or seek medical attention if no relief. 75 Tablet 3 01/16/2024 2:39 PM EST 01/16/20 24 Active traMADol HCl 50 MG Oral Tablet (Ultram)Indica tions:Dental abscess Take 1 Tablet by mouth every 6 hours as needed for Pain, Severe. 15 Tablet 06/16/19 23 024 Discontinued Lisinopril-hyd roCHLOROthiazi de 10-12.5 MG Oral TabletIndicati ons:HTN, goal below 140/90 TAKE 1/2 TABLET BY MOUTH EVERY DAY 45 Tablet 2 01/02/20 24 024 Discontinued Entresto 24-26 MG Oral Tablet (sacubitril-va lsartan 24-26 mg per tab) Take 1 Tablet by mouth in the morning and 1 Tablet before bedtime. 60 Tablet 01/14/20 24 024 Discontinued documented as of this encounter (statuses as of 01/17/2024) Active Problems Problem Noted Date Diagnosed Date Presence of external cardiac defibrillator 01/15 S/P primary angioplasty with coronary stent 05/2023 Heart failure with reduced e jection fraction (HFrEF, <= 40%) 01/15/2024 LBBB (left bundle branch block) 01/15/2024 Anemia due to acute blood loss 01/13/2024 Coronary artery disease invo lving [place] coronary artery of [place] heart 01/10/2024 History of cardiac arrest 01/09/2024 [...] as of this encounter (statuses as of 01/17/2024) Resolved Problems Problem Noted Date Diagnosed Date Resolved Date Cardiac arrest with ventricular fibrillation 01/16/2024 Gross hematuria 01/10/2024 01/15/2024 Encounter for dental [...] as of this encounter (statuses as of 01/17/2024) Immunizations Name Administration Dates Next Due COVID-19 [...] Sign Reading Time Taken Comments Blood Pressure 97/74 01/16/2024 11:45 AM EST Pulse 71 01/16/2024 11:45 AM EST Temperature 36.4 C (97.5 F) 01/16/2024 11:[address] Respiratory Rate 18 01/16/2024 11:24 AM EST Oxygen Saturation 100% 01/16/2024 11:24 AM EST Inhaled Oxygen Concentration - - Weight 80.3 kg (177 lb 1.6 oz) 01/16/2024 6:22 A M EST Height 179.1 cm (5' 10.5") 01/08/2024 10:[address] Body Mass Index 25.05 01/08/2024 10:30 PM EST documented in this encounter Functional Status * Are you deaf or do you have serious difficulty hearing? Answer Date of Assessment Author No 01/08/2024 10:54 PM EST Antonieta Thomas RN * Are you blind or do [...] Antonieta Mejia RN documented in this encounter Discharge Summaries * Johnathan Brown MD - 01/16/2024 3:35 PM EST [address] [address] Admission Date: 01/08/2024 Discharge Date: 01/16/2024 Recommend to do for next provider -Ensure urology follow up for gross hematuria and trial of void Will require further w/u Follow up on repeat CBC to monitor blood loss anemia Follow up on BMP for electrolyte and kidney function monitoring s/p initiation of entresto and spironolactone -Ensure follow up with dentistry (Dr. Gamal Gonzlaez) for possible tooth extraction -Ensure follow up with Dr. Velasquez of cardiology -Repeat echocardiogram 6-8 weeks after TAVR procedure for continued w/u of indication for ICD -Repeat echocardiogram 3 months after optimization of GDMT to maximally tolerated dosing -Ensure follow up with valve clinic for TAVR planning See TAVR gated study below 12/24/23 -Ensure follow up with electrophysiology for continued consideration of ICD indication -Ensure enrollment in cardiac rehab Medication Changes Started amiodarone (Cordarone) - initiated and loaded for VF rhythm control Aspirin Low Dose (aspirin) - DAPT therapy for 1 year s/p coronary stents clopidogrel (pLAVix) - DAPT therapy for 1 year s/p coronary stents Entresto (sacubitril-valsartan 24-26 mg per tab) - initiated for GDMT (HFrEF) metoprolol succinate XL (toPROL XL) - initiated for GDMT Nitroglycerin (Nitrostat) - prn for chest pain Spironolactone (Aldactone) - initiated for GDMT tamsulosin (Flomax) - initiated for prostatomegaly/celeste catheter on discharge Discontinued Lisinopril-hydroCHLOROthiazide 10-12.5 MG per tablet - discontinued in favor of entresto for GDMT DISCHARGE DIAGNOSES: Active Hospital Problems Diagnosis Presence of external cardiac defibrillator S/P primary angioplasty with coronary stent Heart failure with reduced ejection fraction (HFrEF, <= 40%) ([facility]) LBBB (left bundle branch block) Anemia due to acute blood loss Coronary artery disease involving [place] coronary artery of [place] heart History of cardiac arrest Aortic valve stenosis Right thyroid nodule History of tobacco use Type 2 diabetes mellitus with hemoglobin A1c goal of less than 7.0% ([facility]) Resolved Hospital Problems Diagnosis Date Resolved *Principal Diagnosis - NSTEMI (non-ST elevated myocardial infarction) ([facility]) 01/15/2024 Cardiac arrest with ventricular fibrillation ([facility]) 01/16/2024 Gross hematuria 01/15/2024 Encounter for dental examination 01/15/2024 Attending Provider: No current attending provider for patient encounter. CONDITION ON DISCHARGE: stable DISPOSITION ON DISCHARGE: home FOLLOW-UP: Future Appointments Appt Date/Time Provider Department 01/23/2024 1:00 PM Nurse [facility] 01/24/2024 11:20 AM Elvis Flores MD [facility] [place] 03/02/2024 2:[address] PREP; CT1 [facility] [address] 03/06/2024 9:40 AM Elvis Flores MD [facility] [place] 03/09/2024 3:00 PM Katherine Mccormick MD Urology, [place] 11/11/2024 9:30 AM [employer]GE[facility] 1 [facility] Cardiac Studies, [facility] Outpatient testing already scheduled: CBC, BMP, trial of void Outpatient testing that needs to be arranged: cystoscopy, echocardiogram (future) Inpatient test results pending: none MEDICATIONS ON DISCHARGE: MEDICATION UPDATES AT DISCHARGE START taking these medications INSTRUCTIONS amiodarone 200 MG Tablet Commonly known as: Cordarone Start taking on: January 17, 2024 Take 1 Tablet by mouth daily with breakfast. Aspirin Low Dose 81 MG chewable tablet Generic drug: aspirin Start taking on: January 17, 2024 Chew and swallow 1 Tablet by mouth in the morning. clopidogrel 75 MG Tablet Commonly known as: pLAVix Start taking on: January 17, 2024 Take 1 Tablet by mouth in the morning. Entresto 24-26 MG Tabs Generic drug: sacubitril-valsartan 24-26 mg per tab Take 1 Tablet by mouth in the morning and 1 Tablet before bedtime. metoprolol succinate XL 25 MG Tb24 Commonly known as: toPROL XL Start taking on: January 17, 2024 Take 1 Tablet by mouth in the morning. Nitroglycerin 0.4 MG Subl Commonly known as: Nitrostat Dissolve 1 tablet under the tongue every 5 minutes as needed for chest pain, for up to 3 doses in 15 minutes and call 911 or seek medical attention if no relief. Spironolactone 25 MG Tablet Commonly known as: Aldactone Start taking on: January 17, 2024 Take one-half (0.5) Tablets by mouth in the morning. tamsulosin 0.4 MG Capsule Commonly known as: Flomax Take 1 Capsule by mouth every night at bedtime. CONTINUE taking these medications INSTRUCTIONS atorvaSTATin 40 MG Tablet Commonly known as: Lipitor Take 1 Tablet by mouth in the morning. CYANOCOBALAMIN 100 MCG Tablet Commonly known as: vitamin B-12 Take 1 Tablet by mouth in the morning. glipiZIDE XL 5 MG Tb24 Commonly known as: Glucotrol XL TAKE 1 TABLET BY MOUTH EVERY MORNING Jardiance 25 MG Tabs Generic drug: Empagliflozin TAKE 1 TABLET BY MOUTH ONCE DAILY Lancets Misc once daily MetFORMIN 1000 MG Tablet Commonly known as: Glucophage TAKE 1 TABLET BY MOUTH TWICE DAILY ONE TOUCH [employer] BONUS PACK W/DEVICE Kit as directed [employer] Strp Generic drug: Glucose Blood use to test blood sugars once daily as directed Vitamin C 125 MG Chew Take by mouth. Vitamin D 1000 UNIT Capsule 1 capsule daily STOP taking these medications Lisinopril-hydroCHLOROthiazide 10-12.5 MG per tablet ALLERGIES: Patient has no known allergies. INSTRUCTIONS: Activity: No lifting anything heaver than 10 lbs with R wrist for 10-14 days, no strenuous exertionfor 1 week, slow return to baseline activity over the next 1 week, participation in cardiac rehab Diet: Heart healthy, mediterranean Code Status: Full Code ADMISSION HISTORY & PHYSICAL EXAM (focused): PRESENTING PROBLEM: Status post ventricular fibrillation cardiac arrest, possible ACS (NSTEMI), moderate but possibly severe aortic stenosis HPI: Russ Love is a 83 year old male with significant history of hypertension, dyslipidemia, moderate possibly severe aortic stenosis, CHFrEF, DM type 2, previous tobacco use, vitamin-D deficiency, right thyroid nodule, GI bleed presents as a transfer from [facility] due to recent VFibcardiac arrest, possible ACS for ischemic evaluation. Patient reports that has been experiencing progressive exertional shortness of breath for the period of 1 year. He also reports occasional chest pains but was not able to characterize chest pains better. Denies syncope before. Endorse dizziness and lightheadedness mostly with changing position fromsitting to standing. Patient recently presented to [facility] due to recent VFib cardiac arrest. Patient does not have a good memory of the event. Per chart review on 01/06 patient went to hockey game with his grandson and collapsed. Was in usual state of health before, had diarrhea a week before the event.EMS arrived bone 5 minutes after collapse and started CPR. After 2 rounds of CPR, received 200 J shock with cardiac conversion to sinus rate. Brought to ID emergency department. Due to respiratory distress and poor mental status was intubated, started on propofol drip. Patient became hypotensive started vasopressors. Per chart review patient was recently diagnosed with new onset LBBB which was present on the EKG in ER. CT head unremarkable. CT PE without signs of PE but with possible pulmonary edema, nonspecific nodules bilaterally measuring up to [address] abdomen/pelvis with cholelithiasis but otherwise unremarkable. Right brachial arterial line and Celeste catheter were placed. Lactate cleared after resuscitation. ECHO with severe global hypokinesis with LVEF 15-20%, aortic valve severelycalcified with restricted leaflet mobility, low-flow aortic stenosis suspected of moderate to severe degree, mild mitral regurgitation. Patient was loaded with aspirin and started on heparin drip. On01/07 patient was extubated and eventually transferred to [facility] for further management. On arrival patient was is not in acute distress. Denies shortness of breath, chest pain, abdominal pain, flank pain, headache, blurry vision. Good oxygen saturation on room air. Stable hemodynamics. Brachial arterial line in place, [address], Celeste catheter with bloody urine in bag. Patient would like to be a FULL CODE during this admission. Patient's . Mana Love, is a surrogate decisionmaker in case patient is not able to make decisions for himself. HOSPITAL COURSE (focused): 83 y/o M who presented to [facility] as transfer from [facility] after out of hospital cardiac arrestwith ROSC after electrical cardioversion reportedly 2/2 VF arrest. His workup was notable for A1c 7.1, TTE showing EF 30-35% and diffuse hypokinesis in the setting of previously known LBBB, (+) cardiac enzymes s/o NSTEMI, cardiac catheterization showing multivessel coronary artery disease, and CTS was consulted for consideration of CABG / AVR. The patient was deemed a poor candidate for surgery, and as such PCI was pursued culminating in placement of multiple JULIET (see cath report below). EP wasconsulted given VF arrest, and ultimately recommended follow up with their clinic s/p TAVR and rpt TTE for consideration of ICD candidacy at that time, and the patient was discharged on amiodarone and with portable/wearable defibrillator. Hospital course also notable for gross hematuria w/assoc ABLA for which urology was brought on board, which slowly improved with multiple series of continuous bladder irrigation, though given failed TOV the patient was ultimately discharged with celeste in placeand continued light hematuria. He will require further workup of hematuria and TOV with urology on closer interval, as well as blood work (CBC, BMP) to monitor acute blood loss anemia and electrolytes/kidney function in the setting of spironolactone and entresto initiation for GDMT. Dentistry was also consulted given potential OR plans, and recommended antiseptic oral rinse and follow up for tooth extractions. Given his newly reduced EF, he was started on GDMT (jardiance, toprol, entresto, spironolactone). Ultimately, the patient was deemed stable for discharge to home on 01/16/24. He will require followup with PCP in 1 week for routine discharge follow up and medication adjustment (can consider adding spironolactone), Cardiology in 1 month for continued titration of GDMT (and rpt TTE 3 months aftermaximally tolerated dosing), participation in cardiac rehab, dentistry in the next month, urology in the next week for TOV and subsequent cystocopy to evaluate for source of hematuria. Day of Discharge Physical Exam BP 97/74 | Pulse 71 | Temp 36.4 C (97.5 F) | Resp 18 | Ht 1.791 m (5' 10.5") | Wt 80.3 kg (177 lb 1.6 oz) | SpO2 100% | BMI 25.05 kg/m | BSA 2 m Constitutional: no acute distress, pleasant elderly male, makes quips/jokes with staff Neuro: alert and attentive to conversation; fluent speech without dysarthria, hearing grossly intact to conversation, moves all 4 extremities antigravity without asymmetry Head/face, ears, nose, throat: normocephalic, atraumatic, oral mucosa moist, partially edentulous Cardiovascular: (+) holosystolic murmur, regular rate and rhythm, well perfused distally with DP/R pulses +2 and cap refill 2-3 seconds Pulm: breathing comfortably, no accessory muscle use, lungs CTAB posteriorly Abd: soft, non distended, bowel sounds (+) Skin: warm and dry : celeste bag in place, draining blood tinged urine Extremities: no edema MSK: no deformities Surgical Site: R wrist w/o hematoma, R pulses intact and symmetric, sensation to light touch intactdistally, some mild ecchymosis, no bruit, guest services representative strength intact BLT Operations & Procedures: 01/10/24 Coronary angiography " Additional Findings: Coronary disease - hemodynamically significant LAD diffusely diseased, up to 50% stenosis in the mid LAD and up to 80% stenosis just distal to D3. Prox LCX 70% stenosis Mid RCA 70% stenosis Access: Right radial " 01/13/24 Coronary angiography and intervention " Additional Findings: Coronary disease - hemodynamically significant LAD diffusely disease up to 80% pLCX 70% stenosis Mid RCA 70% stenosis Intervention Summary: LAD lesion treated with 3 overlapping drug-eluting stent (2.5mm x 15mm [place]; 2.25 mm X 22 mm [place]; 2.0 mm X 18 mm [place], prox to distal). LCX lesion treated with 1 drug-eluting stent (2.0mm x 12mm [place]). RCA lesion treated with 2 overlapping drug-eluting stent (2.5 mm X 26 mm [place]; 2.5 mm x 26mm [place]). Final angiographic result with 0% residual stenosis, SUELLEN 3 flow, and no evidence of dissection or perforation. Access: Right radial " TOV with repeat celeste placement and exchanged to triple lumen 22Fr catheter: 01/15/24 SELECTED RESULTS: Last recorded weight: Weight: 80.3 kg (177 lb 1.6 oz) (01/16/24 06) Laboratory: Latest Reference Range & Units 01/08/24 22:44 01/09/24 04:36 WBC 4.00 - 10.80 K/uL 9.23 8.08 RBC 4.50 - 5.25 M/uL 4.48 4.38 HGB 14.0 - 16.8 g/dL 12.7 (L) 12.1 (L) HCT 40.0 - 48.4 % 39.1 (L) 37.9 (L) MCV 82.0 - 99.5 fL 87.3 86.5 MCH 27.0 - 34.0 pg 28.3 27.6 MCHC 32.0 - 36.0 g/dL 32.5 31.9 RDW 11.5 - 15.5 % 14.0 13.9 PLT 140 - 400 K/uL 142 142 MPV 6.6 - 11.1 fL 9.4 9.9 (L): Data is abnormally low Latest Reference Range & Units 01/16/24 00:40 01/16/24 05:37 WBC 4.00 - 10.80 K/uL 13.48 (H) 10.69 RBC 4.50 - 5.25 M/uL 2.84 2.82 HGB 14.0 - 16.8 g/dL 8.0 (L) 7.9 (L) HCT 40.0 - 48.4 % 25.2 (L) 25.1 (L) MCV 82.0 - 99.5 fL 88.7 89.0 MCH 27.0 - 34.0 pg 28.2 28.0 MCHC 32.0 - 36.0 g/dL 31.7 31.5 RDW 11.5 - 15.5 % 14.7 14.9 PLT 140 - 400 K/uL 240 235 MPV 6.6 - 11.1 fL 10.0 9.7 (H): Data is abnormally high (L): Data is abnormally low Latest Reference Range & Units Most Recent Hemoglobin A1C 4.0 - 5.6 % 7.1 (H) 01/08/24 22:44 (H): Data is abnormally high Latest Reference Range & Units 01/08/24 22:44 01/09/24 04:36 Troponin T, High Sensitivity <=22 ng/L 59 (H) 56 (H) Triglycerides <=174 mg/dL 102 Cholesterol <200 mg/dL 107 Non-HDL Cholesterol <=159 mg/dL 66 HDL Cholesterol >39 mg/dL 41 LDL Cholesterol <=129 mg/dL 46 (H): Data is abnormally high Most Recent ABO O 01/15/24 04:21 ABO/RH Rpt 01/12/24 06:25 Rh Negative 01/15/24 04:21 TYPE AND SCREEN Rpt (C) 01/15/24 04:21 Specimen Expiration Date 01/18/2024 23:59 01/15/24 04:21 Red Blood Cell Antibody Screen Negative (C) 01/15/24 04:21 (C): Corrected Rpt: View report in Results Review for more information Latest Reference Range & Units Most Recent SODIUM 135 - 146 mmol/L 136 01/16/24 05:37 POTASSIUM 3.5 - 5.1 mmol/L 4.5 01/16/24 05:37 CHLORIDE 98 - 107 mmol/L 101 01/16/24 05:37 CO2 22 - 32 mmol/L 21 (L) 01/16/24 05:37 BUN 6 - 20 mg/dL 28 (H) 01/16/24 05:37 CREATININE 0.6 - 1.2 mg/dL 1.0 01/16/24 05:37 EGFR >=60 mL/min 74 01/16/24 05:37 ANION GAP 7 - 15 mmol/L 14 01/16/24 05:37 GLUCOSE 70 - 120 mg/dL 190 (H) 01/16/24 05:37 CALCIUM 8.4 - 10.2 mg/dL 8.9 01/16/24 05:37 GLUCOSE - POCT 70 - 120 mg/dL 234 (H) 01/16/24 11:38 Magnesium 1.5 - 2.6 mg/dL 2.2 01/16/24 05:37 Phosphorus 2.5 - 4.8 mg/dL 4.7 01/16/24 05:37 Lactate, Whole Blood 0.4 - 2.0 mmol/L 1.7 01/12/24 11:13 Estimated Average Glucose <126 mg/dL 157 (H) 01/08/24 22:44 (L): Data is abnormally low (H): Data is abnormally high Imaging: CTA TAVR GATED 01/10/24: " EXAM: 1. CTA CHEST WITH CONTRAST 2. CTA ABDOMEN PELVIS WITH CONTRAST 3. CTA TAVR HISTORY: work up for possible TAVR, known , s/p cardiac arrest COMPARISON: Cardiac CT from 12/24/2023 TECHNIQUE: 1. CTA chest with intravenous contrast was performed. MIP images were obtained and reviewed. 2. CTA abdomen pelvis with intravenous contrast was performed. MIP images were obtained and reviewed. 3. CTA TAVR CONTRAST: 80 ml intravenously. FINDINGS: CTA CHEST: PULMONARY ARTERIES: Normal in size. No large central or segmental pulmonary embolism. AORTA: Aortic valve is trileaflet with severe annular calcifications. Total annular calcium score of 2049. Small eccentric sub valvular calcification extending from non coronary cusp into the LVOT. Maximum annular distension measured on 15% R-R. Measurements as follows: Annulus systole: 6.03 cm2 LVOT 4 mm below annular plane:6.12 cm2 SOV: 38.4 mm x 38.3 mm x 38.3 mm Right coronary ostia height from annulus: 19.5 mm Right STJ height from annulus: 24.1 mm Left coronary ostia height from annulus: 15.9 mm Left STJ height from annulus: 25.2 mm C-Arm angle: TRISTAN 8, CAU 22 Aortic root angle: 35.6 deg Sinotubular junction: 30.0 mm Diameter 40 mm above the annulus: 34.2 mm Max ascending aorta: 36.9 mm Carotid/axillo-subclavian arteries: 3 vessel aortic arch. Mild kinking of the axillo-subclavian junctions bilaterally as it crosses under the 1st rib. HEART: Top-normal in size. Moderate dilatation of the left atrial appendage. Concentric hypertrophyof the left ventricular myocardium. Mild mitral annular calcifications. No pericardial effusion. Severe trivessel coronary artery atherosclerosis.. MEDIASTINUM/LIONEL: Prominent mediastinal and hilar lymph nodes, likely reactive. CHEST WALL/AXILLA: Unremarkable. LUNGS/PLEURA: Right basilar atelectasis with small right pleural effusion. Biapical pleuroparenchymal scarring. 6 mm ground-glass opacity in the posterior left upper lobe (series 9, image 82). Paraspinal atelectasis with reactive changes at the left lung base. 5 mm subpleural nodule in the right upper lobe please. Mild bronchiectasis at the lung bases. Central airways are clear. No pleural effusion or pneumothorax. CTA ABDOMEN PELVIS: LIVER: Unremarkable. GALLBLADDER/BILE DUCTS: Cholelithiasis. PANCREAS: Unremarkable. GI TRACT: Scattered colonic diverticula. No evidence of bowel obstruction. SPLEEN: Unremarkable. LYMPH NODES: No lymphadenopathy. ADRENAL GLANDS: Unremarkable. KIDNEYS/URETERS: Simple appearing right renal cortical cysts. No hydronephrosis. URINARY BLADDER: Celeste catheter in place with marked concentric bladder wall thickening. REPRODUCTIVE ORGANS: Prostate is unremarkable. VASCULATURE: Infrarenal abdominal aortic aneurysm measuring up to 23 mm. 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 SMA, renal arteries and LESLY are patent. Moderate atherosclerotic calcificationswith a small focal dissection flap with thrombosed false lumen. Average min diameter abdominal aorta: 14.8 mm Average max diameter abdominal aorta: 23.0 mm Min left iliofemoral diameter: 9.2 mm Min right iliofemoral diameter: 8.65 mm Cannulation zone calcifications: Mild MISCELLANEOUS: No free fluid or free air. Postprocedural changes in the inguinal region. MUSCULOSKELETAL: Polyarticular degenerative changes. No acute osseous abnormalities. IMPRESSION: Aortic valve is trileaflet with severe annular calcifications. Total annular calcium score of 2049.Small eccentric sub valvular calcification extending from non coronary cusp into the LVOT. Maximum annular distension measured on 15% R-R. Annulus measures 6.03 cm2. LVOT 4 mm below annular plane measures6.12 cm2. Minimal coronary artery height from the annulus approximately 16 mm on the left. Severe trivessel coronary artery atherosclerosis. Cardiomegaly with concentric hypertrophy of the left ventricular myocardium. No significant iliofemoral atherosclerosis. Minimal luminal diameter of 8.6 mm on the right. Mild tortuosity. 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 Infrarenal abdominal aortic aneurysm measuring up to 23 mm. " CTA Abd/Pelv " HISTORY CLINICAL INFORMATION: ABLA, ongoing hematuria, r/o other source of hemorrhage COMPARISON CT 01/10/2024 TECHNIQUE Axial images of the abdomen and pelvis with and without intravenous contrast in the arterial and portal venous phases. Coronal and sagittal reconstructions were created from the axial data. 3D reformats were performed on a separate workstation. FINDINGS Vasculature: Aorta: Moderate atherosclerotic calcifications. The aorta is normal in course and caliber. Celiac trunk: Patent. There is conventional hepatic arterial anatomy. Superior mesenteric artery: Patent. Inferior mesenteric artery: Patent. Renal arteries: Patent.No accessory renal arteries are identified. The portal vein, splenic vein, superior mesenteric vein, inferior mesenteric vein and renal veins are patent. Common iliac arteries: Patent. External iliac arteries: Patent. Internal iliac arteries: Patent. Additional findings: Lower Chest: Pleural effusion with lower lobe atelectasis. Lines and devices: Celeste catheter in the bladder. Liver: Unremarkable. Gallbladder: Cholelithiasis. Bile ducts: Unremarkable. Pancreas: Unremarkable. Spleen: Unremarkable. Adrenals: Unremarkable. Kidneys/Ureters: Bilateral renal cysts. No hydronephrosis. Bladder: Layering blood products in the bladder with active bleeding. Celeste catheter in place. Reproductive organs: Prostatomegaly. Peritoneum/Retroperitoneum: Unremarkable. Bowel: Normal caliber. Colonic diverticulosis. Normal appendix. Lymph nodes: No lymphadenopathy. Abdominal Wall/Soft Tissues: Unremarkable. Bones: Degenerative osseous changes. IMPRESSION IMPRESSION Active bleeding in the bladder. " Complications: Acute blood loss anemia 2/2 hematuria *Note celeste was in place and hematuria present at the time of admission CONSULTS ORDERED: UROLOGY CONSULT IP CARDIAC SURGERY CONSULT IP ELECTROPHYSIOLOGY CONSULT IP DENTISTRY CONSULT IP CARDIAC REHAB CONSULT IP PHARMACY CONSULT IP REFERRING PHYSICIAN: REF: MARQUES DAWKINS PRIMARY CARE PROVIDER: PCP: Elvis Flores MD [facility] [address] (office) [phone] (fax) Note: To contact a physician responsible for this patients hospital care, please call [facility] [phone]. Pt seen and discussed with attending Dr. Kemp It has been a privilege to participate in the care of this patient Johnathan Brown MD Resident, PGY1, [facility] This chart was completed in part utilizing [employer] Speech Voice Recognition Software. Grammatical errors, random word insertions, pronoun errors, and incomplete sentences are an occasional consequence of this system due to software limitations, ambient noise, and hardware issues. Any formal questions or concerns about the content, text, or information contained within the body of this dictation should be directly addressed to the provider for clarification. Cosigned by Mayelin Kemp MD at 01/16/2024 6:17 PM EST Associated attestation - Mayelin Kemp MD - 01/16/2024 6:17 PM EST I have seen and evaluated the patient today. I have reviewed the documentation by Dr. Brown and I agree with his assessment and plan. Patient has been revascularized with regards to his coronary artery disease. Plan is to continue and up titrate guideline directed medical therapy for heart failure with reduced ejection fraction. Patient will wearing a wearable- cardioverter defibrillator for the next 2-3 months. He will be gettingan echocardiogram at follow-up. If the LV function has not recovered, then he should undergo implantation of biventricular ICD. He will also be following up in the valve Clinic for his aortic stenosis which appears to be in moderate- severe range. Roby Kemp MD Interventional Cardiology [facility], [place], [place] 01/16/24 6:17 PM documented in this encounter Discharge Instructions * Discharge Instr - AVS* Johnathan Brown MD - 01/16/2024 8:00 AM EST Discharge Date: 01/16/2024 If you have chest pain or uncontrollable bleeding from a catheter site, please call 911 immediately. For other questions or concerns, please call [phone] between 8:00 A.M and 5:00 P.M., Saturday through Saturday. If after 5:00 P.M., or on the weekend or holidays, please call [phone]. The information below provides you with the instructions and the list of medications you need to betaking following discharge from the hospital. If you have any questions, please ask before leaving.Please carry this letter with you when you see your doctor in the clinic. If you have questions, you can reach us at the numbers above. Brief summary of your inpatient care: [facility] were [facility] after havingcardiac arrest at a hockey game. You were found to have coronary artery disease, heart failure, andaortic stenosis (tight heart valve). You had a cardiac catheterization, and multiple stents were placed to open up your blood vessels. You were given a wearable defibrillator that would shock your heart if you were to go into an abnormal heart rhythm again. You also had bloody urine, and needed a catheter in your bladder on discharge. You will need follow up with the Urology doctors in one week to ensure this is getting better and to try to have the catheter removed. You also need follow ups with other doctors as below. Your doctors during this hospitalization included: Dr. Kemp, Dr. Miguel, Dr. Garvey, Dr. Lee, and Dr. Brown Diet: Heart healthy, Mediterranean diet Activity: No lifting anything heavy than 10 lbs with your right hand for at least 10 days and no strenuous activity for 7 days, slow return to your baseline activity over the next 7 days, and participate in cardiac rehab for monitored exercise program Driving: No driving until you follow up with your shop tech while you have your wearable defibrillator Labs: you need to have blood work done in the next week to check on your blood counts and kidney function Medications: START taking: amiodarone (Cordarone) aspirin clopidogrel (pLAVix) -this medication helps protect your stents, it is very important to take it every day metoprolol succinate XL (toPROL XL) - this medication helps your heart now that you have heart failure, it also lowers heart rate and blood pressure sacubitril-valsartan 24-26 mg per tab (Entresto) - this medication helps your heart now that you have heart failure, it also lowers Spironolactone (Aldactone) - this medication helps now that you have heart failure, you should haveyour kidney function checked in the next week tamsulosin (Flomax) - this medication can help relax your bladder, follow up with urology and your pcp once your catheter is removed to see if you still need to take this Nitroglycerin (Nitrostat) - this medication is for chest pain STOP taking: Lisinopril-hydroCHLOROthiazide 10-12.5 MG per tablet - this medication has been replaced by entresto (sacubitril-valsartan) Please call your primary care physician (Elvis Flores MD) for an appointment within 1 week(s). Follow up with the heart valve clinic for planning to replace your valve in the next month. Follow up with a general shop tech (yours is Dr. Velasquez) in the next 4 weeks. Follow up with Urology for your celeste catheter (in your bladder) in the next 1 week. Follow up with Dentistry (Dr. Gonzalez saw you here in the hospital) in the next 1 month. Special Instructions: You have been discharged with a bladder catheter (celeste catheter). Your urine will be lightly bloody, but if the amount of blood increases you should reach out to your doctor or the offices of Urology at [facility]. If you develop a fever, excessive pain around the area of your lower stomach, if you notice your catheter is not draining any urine for more than 4 hours, or increased episodes of passing blood clots, please reach out to your doctor to be seen, or report to the Emergency Department for further evaluation. - Plavix or clopidogrel - This drug is most important for stent patients. It keeps the stent from blocking up by preventing blood clots from forming within the stent. When blood clots form, they block the stent and cause a heart attack. You should remain on Plavix until your are otherwise instructed. Please call your shop tech before stopping Plavix for any reason.. - Aspirin - You need to take aspirin even though you are on Plavix. The preferred dose of aspirin is 81 mg per day (one baby aspirin). Use the non- coated kind. You should continue to take aspirin forever unless specifically told to stop.. - Statin Drugs (cholesterol pill) slow the growth of heart artery blockages. Your statin drug is atorvastatin - Nitroglycerin (nitro): Your should carry nitro at all times. When chest pain occurs take one nitro under tongue. You may take an additional tab once every 5 minutes for a total of 3 tabs maximum. If you need all 3 tabs you need to call 911 and come to a hospital. Lie down after using nitro. Do not drive after using nitro. Patients with chronic stable chest pain who frequently use nitro may not need to call 911. Ask your physician about this.. - Beta blockers are important for some cardiac patients and after a heart attack. Your beta blockeris Toprol - Do not use Motrin/Ibuprofen/Advil and other types of "NSAIDs" (nonsteroidal anti-inflammatory drugs) - "NSAIDs" make aspirin ineffective, can raise blood pressure, and can damage your kidneys. Try Tylenol for pain. Consult your pharmacist for questions about "NSAIDs".. Arm Puncture Site Care: Do not soak your hand in water. You can wash the area with soap and water. Use a waterproof bandage. The hole in your arm artery is still healing and may be sore for a week. This is normal. If you notice worsening pain or swelling or bleeding in the area that is not relieved by Tylenol orif you develop a fever over 101 degrees F you should see your shop tech. If you have questions or are concerned about how your arm is healing, call the doctor who did your procedure. You have no limitation on exercise or driving. WEARABLE CARDIOVERTER DEFIBRILLATOR DISCHARGE INSTRUCTIONS Restrictions: Do not drive until cardiology follow up Each wearable defibrillator (or vest) has liquor bridge operator helper specific instructions. You were educated by the device player services representative prior to discharge. Please read your device's instruction material carefully, and if you have any questions reach out to the numbers above. HEART FAILURE DISCHARGE INSTRUCTIONS Diagnosis: Congestive heart failure Weight Monitoring: Weigh yourself every morning before you eat, using the same scale, and write it in your weight diary. Last EF: 30% Follow Up: See your primary care provider regularly and keep all scheduled appointments. CALL YOUR DOCTOR IF YOU: ? Have a weight gain of 5 pounds ? Notice your feet, legs, or hands are swollen ? Notice a fast heart beat or palpitations ? Have increased cough especially at night ? Notice fullness in abdomen ? Have a loss of appetite ? Become easily dizzy or lightheaded ? Feel more short of breath than usual ? Have dry mouth (sign of dehydration) ? Have muscle cramps (sign of dehydration) CARDIAC REHABILITATION: Following my procedure, I understand that participating in Cardiac Rehabilitation is important to assist in my recovery, improve how I feel, get me back to my normal activities and may prolong my life. I will be contacted by Cardiac Rehabilitation to schedule my first visit. Cardiovascular RISK FACTOR control Do not smoke or use tobacco products in any way! YOUR RISK FACTOR TREATMENT GOALS: Controlling the factors that cause arteries to form blockages will reduce your chance of having new blockages. Work with your health care providers to control your risk factors. If you have trouble reaching these goals then ask your health care provider to work with you further until they are controlled. Diabetes - In diabetics, hemoglobin A1C is a measure of the average blood sugar over the past 3 months. The goal is less than 7.0. Your result is: 7.1 Hypertension - Goal is less than 120/80. Your blood pressure is 128/80. You should get a blood pressure cuff at your local pharmacy or convenience store. Measure your blood pressure every morning after waking up, in a seated position, after 5 minutes of rest, with your legs uncrossed and your arm at the level of your heart. Keep a log book of your blood pressures and bring it with you to your doctor's appointments, especially your shop tech. High cholesterol LDL cholesterol (bad cholesterol) - goal is less than 70 mg/dl. HDL cholesterol (good cholesterol) - goal is greater than 40 mg/dl in men and 50 mg/dl in women. Triglycerides (other blood fats that are especially elevated in diabetics and pre-diabetics) - goal is less than 150 mg/dl. Your Lipid Panel Results are: Results for orders placed or performed in visit on 05/02/16 LIPID PANEL Result Value Ref Range HOURS FASTING 12 hours Triglycerides 198 <200 mg/dL Cholesterol 178 <200 mg/dL HDL Cholesterol 31 (L) >39 mg/dL Cholesterol-HDL Ratio 5.7 LDL Cholesterol 107 0 - 129 mg/dL Results for orders placed or performed during the hospital encounter of 01/08/24 LIPID PANEL WITH DIRECT LDL IF TG IS HIGH Result Value Ref Range Triglycerides 102 <=174 mg/dL Cholesterol 107 <200 mg/dL HDL Cholesterol 41 >39 mg/dL Non-HDL Cholesterol 66 <=159 mg/dL LDL Cholesterol 46 <=129 mg/dL Tobacco - Tobacco is poison to your arteries. It will cause blockages. Continuing to smoke tobacco may lead to heart attacks, strokes, or leg amputation. You should avoid tobacco. Your goal is to notsmoke at all. Talk with your primary care provider about counseling and medications to help you stop smoking. Exercise - The [place] [employer] recommends walking 30 minutes a day most days of the week; if you have to lose weight you should walk 60-90 minutes a day. Remember that if you develop chestpain, you should stop what you are doing. Do not continue to exercise if you have chest pain. See your special activity instructions above. [place] weight - Your BMI (a measure of ideal body weight) is Body mass index is 25.05 kg/m.. Your BMI should be less than 25. Your waist size also predicts risk of heart attack: a woman's waist should be less than 35 inches and a man's waist less than 40. Maintaining your ideal body weight will help your heart, reduce blood pressure, blood sugar, and cholesterol, improve or help prevent diabetes, and improve or help prevent congestive heart failure. Instructions for Celeste Catheter - The nursing staff will instruct you on the care of your catheter and the use of a leg bag. It is recommended that you use a leg bag during the day and the large drainage bag at night. - Avoid tension on the catheter by keeping the leg strap high on your thigh. - Apply KY or similar water based lubricant on the tip of the penis if any irritation occurs. - If you are male and uncircumcised, ensure that your foreskin is pulled down over the catheter andthe tip of your penis to prevent constriction of this skin. - It can be normal to see blood in the urine for the next several weeks. This is expected. Drink plenty of fluids to help this clear, preferably water. If the catheter stops draining for several hours and you experience a build up of bladder pressure then you should: - During normal business hours call the urology clinic at [phone] - After business hours call [phone] and ask for the urology resident honest john rocket crew member or present to an emergency department. A follow up appointment will be made for you with a urology clinic nurse for catheter removal and avoiding trial in approximately 5-7 days. documented in this encounter Progress Notes * El Miniawi, Elvis Nasser, MD - 01/16/2024 7:33 AM EST PROGRESS NOTE - Urology [facility] [place] [address] Name: Russ Love Location: [facility] [place] [id number] Date: 01/16/2024 Time: 7:34 AM Overnight, catheter noted to be bloody. Critical care response nurse placed a CBI catheter with return of 600mL of bloody urine with clots and then manually irrigated. Subjective: Patient reports feeling well this morning. He denies subsequent issues with the catheter after irrigated. Objective: Vitals: BP: 115 mmHg/62 mmHg (01/16/24226) Pulse: 79 (01/16/24226) Resp: 18 (01/16/24226) Temp: 36.72 C (01/16/24226) Temp Summary: Temp Min: 36.7 C (98.1 F) Max: 37 C (98.6 F) SpO2: 96 % (01/16/24226) O2 flow rate: Supplemental O2 Delivery: Room Air, None (01/16/24226) Most Recent Systolic BP Av.4 mmHg Min: 102 mmHg Max: 155 mmHg Most Recent Temperature Av.9 C Min: 36.72 C Max: 37 C Pulse Av.7 Min: 76 Max: 79 Resp Av.2 Min: 16 Max: 18 SpO2 Av.4 % Min: 96 % Max: 100 % UOP: 1500cc Physical Exam: General: alert, awake, oriented to person and place and situation Heart: regular rate Chest: non-labored breathing Abdomen: soft, non-distended : Celeste in and draining clear bloody urine Labs: Lab Results Component Value Date/Time WBC 10.69 01/16/2024 05:37 AM WBC 13.48 (H) 01/16/2024 12:40 AM WBC 9.01 01/15/2024 04:21 AM WBC 5.93 10/21/2019 12:09 PM WBC 6.69 12/12/2018 12:38 PM WBC 5.26 06/20/2012 03:07 PM HGB 7.9 (L) 01/16/2024 05:37 AM HGB 8.0 (L) 01/16/2024 12:40 AM HGB 8.0 (L) 01/15/2024 04:21 AM HGB 13.3 (A) 01/07/2024 12:00 AM HGB 10.7 (L) 10/21/2019 12:09 PM HGB 9.6 (L) 12/12/2018 12:38 PM HGB 12.9 (L) 06/20/2012 03:07 PM CREAT 1.0 01/16/2024 05:37 AM CREAT 0.8 01/15/2024 04:21 AM CREAT 0.7 01/14/2024 06:01 AM CREAT 1.0 01/07/2024 12:00 AM CREAT 1.0 10/21/2019 12:09 PM CREAT 1.0 11/18/2018 08:36 AM CREAT 1.0 04/30/2017 08:26 AM Imaging: US PELVIS TRANS-ABDOMINAL LIMITED Result Date: 01/13/2024 IMPRESSION Dependent material in the urinary bladder which could be clot and measures 3.4 x 3.1 x 5.3 cm. A mass is difficult to exclude. IMPRESSION / PLAN: Russ Love is a 83 year old male admitted after cardiac arrest status post cardiac catheterization on 01/13/24 on plavix seen in consultation for gross hematuria. Patient failed trial of void with clot retention requiring placement of a hematuria catheter. -maintain urethral cathter until follow up. -would recommend initiating patient on tamsulosin 0.4mg qHS -urology to arrange for outpatient void trial in one week Patient to be discussed with Dr. Katherine Warren MD PGY2 Urology Resident Cosigned by Katherine Mccormick MD at 01/16/2024 10:03 AM EST Associated attestation - Katherine Mccormick MD - 01/16/2024 10:03 AM EST I saw and evaluated the patient today. I have reviewed the resident/fellow physician note and agree. * Shaun Childers RN - 01/15/2024 8:45 PM EST Nursing Critical Care Response Note [address] [address] Name: Russ Love Date: 01/16/2024 Time: 12:30 AM Event Location: [facility] [place] Unit Area: [facility] In the role of the Critical Response Nurse I was involved in the care of this patient. Method of notification to the critical care response nurse: Unit call/request for assistance Reason for notification or follow up: Difficult indwelling catheter placement Observations/Interventions/Assessment: Requested by bedside RN to place CBI catheter per Urology. Confirmed with Urology resident honest john rocket crew member.A 22 F CBI catheter was placed using sterile technique. 600 of bloody urine with clots drained after insertion. Patient was then manually irrigated for more clots. Patient tolerated well. Outcome/Plan Bedside RN to continue care. CRN can be contacted via [place] Text: [facility] [place] Critical Response Nurse. * Aniket Donovan MD - 01/15/2024 9:56 AM EST UROLOGY PROGRESS NOTE [address] [address] Name: Russ Love Location: [address] SUBJECTIVE: No acute events overnight, doing well this morning. Afebrile hemodynamically stable. Denies any issues with the catheter and expresses a desire to go home soon. Celeste [id number] PHYSICAL EXAMINATION: Most Recent Vital Signs: BP: 110 mmHg/67 mmHg (01/15/24727) Pulse: 79 (01/15/24727) Resp: 16 (01/15/24727) Temp: 37 C (01/15/24727) Temp Summary: Temp Min: 36.3 C (97.3 F) Max: 37 C (98.6 F) SpO2: 97 % (01/15/24727) O2 flow rate: Supplemental O2 Delivery: Room Air, None (01/15/24727) General: awake, alert and responsive Heart: Regular rate Chest: Normal WOB Abdomen: soft NTND Extremities: no deformities : Celeste in and draining clear yellow and sylvia urine LABS: CBC Lab Results Component Value Date/Time WBC 9.01 01/15/2024 04:21 AM WBC 5.93 10/21/2019 12:09 PM HGB 8.0 (L) 01/15/2024 04:21 AM HGB 13.3 (A) 01/07/2024 12:00 AM HGB 10.7 (L) 10/21/2019 12:09 PM HCT 25.2 (L) 01/15/2024 04:21 AM HCT 35.5 (L) 10/21/2019 12:09 PM PLT 207 01/15/2024 04:21 AM PLT 197 10/21/2019 12:09 PM BMP Lab Results Component Value Date/Time NA 134 (L) 01/15/2024 04:21 AM NA 139 10/21/2019 12:09 PM POTASSIUM 4.6 01/15/2024 04:21 AM POTASSIUM 3.6 01/07/2024 12:00 AM POTASSIUM 4.7 10/21/2019 12:09 PM CL 101 01/15/2024 04:21 AM CL 100 10/21/2019 12:09 PM CO2 21 (L) 01/15/2024 04:21 AM CO2 28 10/21/2019 12:09 PM BUN 20 01/15/2024 04:21 AM BUN 22 (H) 10/21/2019 12:09 PM CREAT 0.8 01/15/2024 04:21 AM CREAT 1.0 01/07/2024 12:00 AM CREAT 1.0 10/21/2019 12:09 PM Ca, Mg, Phos Lab Results Component Value Date/Time CA 8.9 01/15/2024 04:21 AM CA 9.6 10/21/2019 12:09 PM MG 2.0 01/15/2024 04:21 AM PHOSPHORUS 4.4 01/15/2024 04:21 AM CULTURES: Recent Cultures (2 Weeks) No lab values to display. ASSESSMENT: Russ Love is a 83 year old male admitted after cardiac arrest now status post cardiac catheterization on 01/13/24 on plavix seen for gross hematuria that has now resolved. PLAN: - okay for void trial from Urology perspective - outpatient follow up for gross hematuria workup with Urology arranged - rest of care per primary Patient to be discussed with Dr. Mccormick. Aniket Donovan MD PGY1 | [facility] Urology Cosigned by Katherine Mccormick MD at 01/15/2024 4:05 PM EST Associated attestation - Katherine Mccormick MD - 01/15/2024 4:05 PM EST I did not see the patient, but I have reviewed the resident/fellow physician documentation and was readily available on date of service. * Johnathan Brown MD - 01/15/2024 6:01 AM EST Images from the original note were not included. [facility] H868/A PROGRESS NOTE - Cardiovascular Medicine [address] [address] Name: Russ Love [place] [facility] [place] H868/A Date: 01/15/2024 Time: 6:01 AM Date of admission: 01/08/2024 Brief Summary: 83 y/o M w/PMHx of HTN, DLD, DM2, known RBBB and recently diagnosed LBBB, moderate to severe who presented from OSH after OOH VF cardiac arrest w/ROSC and c/f newly noted HFrEF (30%). Hospital course complicated by gross hematuria (ongoing CBI, urology following) and acute blood loss anemia. He is now s/p PCI w/DESx6 (LADx3, LCXx1, RCAx2) with ongoing plans for ICD and TAVR. INTERVAL HISTORY: Overnight: ANASTASIA Pt seen and examined at bedside, is eager to return home. He denies concerns, including SOB/CP/N/V/Diarrhea/constipation, lightheadeness, weakness/numbness Objective Most Recent Vital Signs: BP: 128 mmHg/61 mmHg (01/15/24229) Pulse: 79 (01/14/242010) Resp: 16 (01/15/24229) Temp: 36.28 C (01/15/24229) Temp Summary: Temp Min: 36.3 C (97.3 F) Max: 36.9 C (98.5 F) SpO2: 98 % (01/15/24229) O2 flow rate: Supplemental O2 Delivery: Room Air, None (01/15/24229) Vital Signs Last 24 Hours: Systolic BP: Most Recent Systolic BP Av mmHg Min: 97 mmHg Max: 128 mmHg Diastolic BP: Most Recent Diastolic BP Av.1 mmHg Min: 51 mmHg Max: 70 mmHg Temperature: Most Recent Temperature Av.6 C Min: 36.28 C Max: 36.94 C Pulse: Pulse Av Min: 59 Max: 79 Respirations: Resp Av.6 Min: 16 Max: 18 SpO2: SpO2 Av % Min: 98 % Max: 100 % Urethral Catheter (Active) Number of days: 7 Peripheral Line Left;Upper 18 Gauge (Active) Number of days: 6 Peripheral Line Lower;Right 20 Gauge (Active) Number of days: 1 Intake & Output Summary (Last 24 hours): Intake/Output Summary (Last 24 hours) at 01/15/2024 0601 Last data filed at 01/15/2024 0523 Gross per 24 hour Intake -- Output 2650 ml Net -2650 ml Net IO Since Admission: -369.35 mL [01/09/24 0603] Output by Drain (mL) 01/14/24 0700 - 01/14/24 1459 01/14/24 1500 - 01/14/24 2259 01/14/24 2300 - 01/15/24 0601 Range Total Requested LDAs do not have output data documented. Bowels: Last Bowel Movement: 01/14/24 (01/14/24 1700) Stool Description: Large;Mushy;Brown (01/14/24 1700) Height/Wt Weight Trend: Wt Readings from Last 7 Encounters: 01/14/24 83.6 kg (184 lb 3.2 oz) 12/20/23 86.2 kg (190 lb) 09/04/23 82.8 kg (182 lb 9.6 oz) 03/04/23 84.5 kg (186 lb 3.2 oz) 12/18/22 84.3 kg (185 lb 12.8 oz) 09/01/22 84.4 kg (186 lb) 06/15/22 83.9 kg (185 lb) Earliest Wt This Admission Weight: 84.6 kg (186 lb 8.2 oz) (01/08/24 2230) Most Recent Wt This Admission Weight: 81.2 kg (179 lb) (01/15/24 0618) Weight change: Body mass index is 26.06 kg/m. Physical Exam Constitutional: no acute distress, resting comfortably supine in bed Neuro: alert and attentive to conversation, hearing grossly intact to conversation, no facial asymmetry, moves all 4 distal extremities spontaneously Head/face, ears, nose, throat: normocephalic, atraumatic, oral mucosa moist, partially edentulous Cardiovascular: (+) holosystolic murmur, RRR, well perfused distally, DP/R pulses +2 Pulm: breathing comfortably on room air, no accessory muscle use, CTAB posteriorly Abd: soft, non tender throughout, bowel sounds audible : celeste catheter in place draining pink urine, some clots Extremities: no edema Surgical Site: R wrist some ecchymosis, no hematoma, R pulses +2 sym, neurovascularly intact distally, no bruit Laboratory Values: Blood Gas: No results in the last 7 days - inpatent use only Chemistry Panel: Lab results within last 7 days (see chart for full results) Units 01/15/24 0421 01/14/24 0601 01/13/24 0722 01/12/24 0515 01/11/24 0442 01/10/24 0446 01/09/24 0436 SODIUM mmol/L 134* 133* 133* 135 134* 134* 143 POTASSIUM mmol/L 4.6 4.5 4.3 4.2 4.1 4.1 3.9 CHLORIDE mmol/L 101 100 100 102 101 101 106 CO2 mmol/L 21* 21* 23 23 20* 21* 20* EGFR mL/min 86 >90 >90 87 88 86 >90 BUN mg/dL 20 18 15 16 18 18 13 CREATININE mg/dL 0.8 0.7 0.7 0.8 0.8 0.8 0.7 GLUCOSE mg/dL 166* 201* 191* 168* 146* 139* 116 CALCIUM mg/dL 8.9 8.5 8.7 8.4 8.4 8.8 8.5 Magnesium mg/dL 2.0 1.9 1.9 1.9 2.1 1.8 2.0 Phosphorus mg/dL 4.4 3.6 3.6 3.5 3.3 3.2 3.8 ANION GAP mmol/L 12 12 10 10 13 12 17* Complete Blood Count: Lab results within last 7 days (see chart for full results) Units 01/15/24 0421 01/14/24 0602 01/13/24 2214 01/13/24 0722 01/12/24 1816 01/12/24 0514 01/11/24 1632 01/11/24 0442 01/10/24 1957 WBC K/uL 9.01 8.03 -- 6.80 -- 6.74 8.95 8.56 10.00 HGB g/dL 8.0* 8.2* 8.3* 8.5* 8.7* 8.8* 9.6* 9.9* 10.4* HCT % 25.2* 25.1* 26.2* 26.5* 28.4* 27.1* 30.9* 30.5* 33.3* PLT K/uL 207 178 -- 167 -- 153 182 159 175 MCV fL 87.2 87.5 -- 87.2 -- 86.0 88.0 85.9 88.1 Cardiac Studies: Lab results within last 7 days (see chart for full results) Units 01/09/24 0436 01/08/24 2244 Troponin T, High Sensitivity ng/L 56* 59* Coagulation Studies: Lab results within last 7 days (see chart for full results) Units 01/15/24 0421 01/14/24 0602 01/13/24 0722 01/12/24 0515 01/11/24 0442 01/10/24 1816 01/10/24 0446 01/09/24 1917 01/09/24 1105 01/09/24 0436 01/08/24 2244 Prothrombin Time seconds 13.9 13.9 13.5 13.3 13.4 -- 13.6 -- -- 14.2 14.1 INR 1.1 1.1 1.0 1.0 1.0 -- 1.0 -- -- 1.1 1.1 aPTT seconds -- -- -- -- -- -- -- -- -- -- 53* Heparin, Unfractionated IU/mL -- -- -- 0.43* 0.36* 0.47* 0.34* 0.31* 0.41* 0.19* 0.20* Liver Function Panel: Lab results within last 7 days (see chart for full results) Units 01/08/24 2244 Triglycerides mg/dL 102 Infectious Studies: Lab results within last 7 days (see chart for full results) Units 01/12/24 1113 01/10/24 1957 01/09/24 0047 Lactate mmol/L 1.7 1.3 0.7 Cultures: reviewed. No results in the last 7 days - inpatent use only Recent Cultures (2 Weeks) No lab values to display. Radiographic Studies: US PELVIS TRANS-ABDOMINAL LIMITED Result Date: 01/13/2024 IMPRESSION Dependent material in the urinary bladder which could be clot and measures 3.4 x 3.1 x 5.3 cm. A mass is difficult to exclude. CTA ABD/PELVIS Result Date: 01/12/2024 IMPRESSION Active bleeding in the bladder. The above finding was communicated via secured text to Dr. Johnathan Brown on 01/12/2024 at 3:18 pm CARDIAC STUDIES: TTE 2017 Interpretation Summary The examination is adequate to evaluate the referral indication. Sinus rhythm with frequent ectopy was present during the echocardiogram. The LV wall thickness is mildly increased (concentric). The left ventricular wall motion is normal. The qualitative LV ejection fraction is 5559% (normal). The aortic valve has three leaflets. Moderate aortic valve sclerosis is present. Aortic stenosis is absent. There is no significant aortic regurgitation. There is no evidence of pulmonary hypertension. The aortic root and proximal ascending aorta are mildly enlarged. TTE 09/12/2022 Interpretation Summary The examination is adequate to evaluate the referral indication. There was normal sinus rhythm with ventricular trigeminy during the examination. The left ventricular cavity size is normal. The LV wall thickness is moderately increased (concentric). The septal motion is abnormal consistent with intrventricular conduction delay. The regional left ventricular wall motion is otherwise normal. The qualitative LV ejection fraction is 50-54% (normal). The aortic valve is moderately calcified. Moderate aortic valve stenosis is present. The left ventricular diastolic function is mildly abnormal (grade I). Mild mitral regurgitation is present. TTE 11/12/23 Interpretation Summary The qualitative LV ejection fraction is 40-44% [...] has declined, aortic valve systolic gradient unchanged. TTE 01/10/24 Interpretation Summary The examination is adequate to evaluate the referral indication. The qualitative LV ejection fraction is 30-34% (moderately reduced). There is diffuse hypokinesis with dyssynchronous LV contractility due to LBBB. The left ventricularcavity size is mildly enlarged. The right ventricular systolic function is qualitatively normal. Aortic stenosis is detected but not quantitated. Consider low dose dobutamine protocol for assessment of severity if clinically warranted. Cardiac Cath 01/10/24 *R radial access Additional Findings: Coronary disease - hemodynamically significant LAD diffusely diseased, up to 50% stenosis in the mid LAD and up to 80% stenosis just distal to D3. Prox LCX 70% stenosis Mid RCA 70% stenosis Cardiac Cath 01/13/24 Additional Findings: Coronary disease - hemodynamically significant LAD diffusely disease up to 80% pLCX 70% stenosis Mid RCA 70% stenosis Intervention Summary: LAD lesion treated with 3 overlapping drug-eluting stent (2.5mm x 15mm [place]; 2.25 mm X 22 mm [place]; 2.0 mm X 18 mm [place], prox to distal). LCX lesion treated with 1 drug-eluting stent (2.0mm x 12mm [place]). RCA lesion treated with 2 overlapping drug-eluting stent (2.5 mm X 26 mm [place]; 2.5 mm x 26mm [place]). Final angiographic result with 0% residual stenosis, SUELLEN 3 flow, and no evidence of dissection or perforation. Intervention Procedure Details: A 6 [place] EBU 3.5 guide catheter was used to engage the LMCA. A Runthrough coronary guidewire was used to cross the lesion and advanced into the LAD. The lesion was pre-dilated with a 2.0 mm semi-compliant balloon. 3 drug eluting stents were then deployed across the entire lesion (Prox to distal: 2.5 mm X 15 [place], 2.25 mm X 22mm [place], 2.5 mm X 15 mm [place]). The stent was post dilated with a 2.5 mm non-compliant balloon. Final angiographic result with 0% residual stenosis, SUELLEN 3 flow, and no evidence of dissection or perforation. A 6 [place] EBU 3.5 guide catheter was used to engage the LMCA. A Runthrough coronary guidewire was used to cross the lesion and advanced into the LCX. The lesion was pre-dilated with a 2.0mm and 2.5 mm semi-compliant balloon. A 2.0 mm x 12 mm [place] drug-eluting stent was then deployed across the entire lesion. The stent was post dilated with a 2.5 mm non-compliant balloon. Excellent angiographic result with 0% residual stenosis, SUELLEN 3 flow, and no evidence of dissection or perforation. A 6 [place] JR4 guide catheter was used to engage the RCA. A Runthrough coronary guidewire was used to cross the lesion and advanced into the RCA. The lesion was pre-dilated with a 1.5mm, 2.0mm, and 2.5 mm semi-compliant balloon. Two drug- eluting stents were then deployed across the entire lesion (proximally to distally 2.5 mm X 26 mm [place] overlapping a 2.5 mm X 26 mm [place]). The stent was post dilated with a 2.5 mm and 2.75 mm non-compliant balloon. Final angiographic result with 0% residual stenosis, SUELLEN 3 flow, and no evidence of dissection or perforation. CT TAVR 01/10/24 IMPRESSION: Aortic valve is trileaflet with severe annular calcifications. Total annular calcium score of 2049.Small eccentric sub valvular calcification extending from non coronary cusp into the LVOT. Maximum annular distension measured on 15% R-R. Annulus measures 6.03 cm2. LVOT 4 mm below annular plane measures6.12 cm2. Minimal coronary artery height from the annulus approximately 16 mm on the left. Severe trivessel coronary artery atherosclerosis. Cardiomegaly with concentric hypertrophy of the left ventricular myocardium. No significant iliofemoral atherosclerosis. Minimal luminal diameter of 8.6 mm on the right. Mild tortuosity. 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 Infrarenal abdominal aortic aneurysm measuring up to 23 mm. Prior to Admission medications Medication Sig Last Dose Discont. Entresto 24-26 MG Oral Tablet (sacubitril-valsartan 24-26 mg per tab) Take 1 Tablet by mouth in themorning and 1 Tablet before bedtime. Lisinopril-hydroCHLOROthiazide 10-12.5 MG Oral Tablet TAKE 1/2 TABLET BY MOUTH EVERY DAY Jardiance 25 MG Oral Tablet (Empagliflozin) TAKE 1 TABLET BY MOUTH ONCE DAILY glipiZIDE ER 5 MG Oral Tablet Extended Release 24 Hour (Glucotrol XL) TAKE 1 TABLET BY MOUTH EVERY MORNING metFORMIN HCl 1000 MG Oral Tablet (Glucophage) TAKE 1 TABLET BY MOUTH TWICE DAILY Atorvastatin Calcium 40 MG Oral Tablet (Lipitor) Take 1 Tablet by mouth in the morning. Vitamin C 125 MG Oral Tablet Chewable Take by mouth. OneTouch Ultra In Vitro Strip (Glucose Blood) use to test blood sugars once daily as directed traMADol HCl 50 MG Oral Tablet (Ultram) Take 1 Tablet by mouth every 6 hours as needed for Pain, Severe. Patient not taking: Reported on 12/20/2023 CYANOCOBALAMIN (VITAMIN B-12) 100 MCG Tablet Take 1 Tablet by mouth in the morning. VITAMIN D 1000 UNIT PO CAPS 1 capsule daily LANCETS MISC once daily ONE TOUCH ULTRA BONUS PACK KIT as directed Current Facility-Administered Medications Medication Dose Route Frequency Provider amiodarone (Cordarone) tab 400 mg 400 mg Oral Breakfast Marilu Lee DO Empagliflozin (Jardiance) tab 25 mg 25 mg Oral Daily(AM) Marilu Lee DO metoprolol succinate XL (toPROL XL) tab 25 mg 25 mg Oral Daily(AM) Johnathan Brown MD Polyethylene Glycol 3350 (Miralax) oral powder 17 g 1 Packet Oral Daily(AM) Johnathan Brown MD sacubitril-valsartan 24-26 mg per tab (Entresto) tab 1 Tablet 1 Tablet Oral BID(AM/PM) Marilu Lee DO clopidogrel (pLAVix) tab 75 mg 75 mg Oral Daily(AM) Johnathan Brown MD Enoxaparin (Lovenox) inj 40 mg 40 mg Subcutaneous Daily(AM) Johnathan Brown MD melatonin tab 6 mg 6 mg Oral HS Johnathan Brown MD chlorHEXIDINE (Periogard) 0.12 % oral rinse 15 mL 15 mL Swish & Spit BID (0800,1999) Johnathan Brown MD Polyethylene Glycol 3350 (Miralax) oral powder 17 g 1 Packet Oral Daily PRN Johnathan Brown MD senna-docusate (Senokot-S) 1 Tablet 1 Tablet Oral Daily(AM) Johnathan Brown MD aspirin chew tab 81 mg 81 mg Oral Daily(AM) Geo Barroso MD atorvaSTATin (Lipitor) tab 40 mg 40 mg Oral Q 1700 Geo Barroso MD dextrose 50% inj 25 mL 25 mL IV Push PRN Geo Barroso MD dextrose 50% inj 50 mL 50 mL IV Push PRN Geo Barroso MD glucagon (Glucagen) inj 1 mg 1 mg Intramuscular PRN Geo Barroso MD Glucose (Glutose 15) 40 % gel 15 g of glucose 15 g of glucose Oral PRN Geo Barroso MD Glucose (Glutose 15) 40 % gel 30 g of glucose 30 g of glucose Oral PRN Geo Barroso MD glucose chew tab 16 g 16 g Oral PRN Geo Barroso MD insulin aspart (NovoLOG) inj Subcutaneous With meals Geo Barroso MD oxybutynin (Ditropan) tab 5 mg 5 mg Oral TID PRN Marilu Lee DO chlorHEXIDINE (Periogard) 0.12 % oral rinse 15 mL 15 mL Oral mucosal membrane BID (08,1999) Geo Barroso MD Oral Hygiene: Mouth Swab with dentifrice Oral Q4H Limited (00;04;12;16) Geo Barroso MD sodium chloride 0.9 % flush peripheral adriano 3 mL 3 mL IV Push Q8H Geo Barroso MD Assessment and Plan IMPRESSION : Principal Problem: NSTEMI (non-ST elevated myocardial infarction) ([facility]) Active Problems: History of tobacco use Vitamin D deficiency Right thyroid nodule Aortic valve stenosis History of cardiac arrest Hematuria, gross Coronary artery disease involving [place] coronary artery of [place] heart Encounter for dental examination Acute blood loss anemia Resolved Problems: * No resolved hospital problems. * 83 y/o M w/PMHx as above who presented for out of hospital VF arrest w/ROSC no s/p intubation extubation at OSH before transfer. Also has history of moderate vs severe based on echo reports with newly reduced EF. Found to have multivessel CAD and ongoing plans for AVR/CABG vs TAVR/PCI. Course complicated by gross hematuria in the setting of celeste placed PRODUCTION HAND with assoc anemia. VF cardiac arrest OOH s/p electrical cardioversion with ROSC. Transfer from OSH. ? Valve vs mild ischemic cardiomyopathy though today's cath report not entirely convincing given lack of total occlusion. -discontinue amio gtt (load complete) -continue amio @ 200mg po qd per EP recs -telemetry monitoring -no ICD indications at this point, plan for Assure vest prior to dispo F/u with EP clinic following TAVR to assess LVEF and eligibility for ICD Aortic stenosis -Plan for outpatient TAVR w/u CT TAVR complete as above F/u in 4-6 months HFrEF (40%) - José Antonio entrestreena, toprol Anticipate spironolactone outpatient Multivessel coronary artery disease - s/p PCI w/JULIET x6 NSTEMI S/p JULIET to LAD x3, LCX x1, RCA x2 -ASA/plavix for 1 year, atorvastatin 40mg qd ABLA Hematuria Ongoing hematuria, urology following. Fine for TOV from uro perspective -Hgb 8 today -celeste out today, TOV w/prn bladder scan, if c/f retention will need to place celeste and have 1 weekf/u with uro -ultimately needs outpatient gross hematuria workup Miscellaneous Dental: consulted, recommending chlorhexidine swish BID, outpatient follow up for extractions Dental hygiene orders in Pt's loose teeth represent intubation risk and should be noted by anesthesia in the event of MARILYN for any procedures Sleep: melatonin Chronic conditions: Hypertension: discontinue PRODUCTION HAND lisinopril-hydrochlorothiazide for GDMT as above Type 2 diabetes: Hold PRODUCTION HAND metformin, glipizide, continue with LDSS Hold PRODUCTION HAND vitamin B12, vitamin-D Diet: Orders Placed This Encounter Procedures Adult Complex Diet : Heart Healthy VTE Prophylaxis: Enoxaparin Bowel Regimen: senokot daily, prn miralax Last Bowel Movement: 01/15/24 (01/15/24 1040) PT/OT: not consulted List of services consulted/following: UROLOGY CONSULT IP CARDIAC SURGERY CONSULT IP ELECTROPHYSIOLOGY CONSULT IP DENTISTRY CONSULT IP CARDIAC REHAB CONSULT IP PHARMACY CONSULT IP PHARMACOLOGIC VTE PROPHYLAXIS: Enoxaparin CODE STATUS: Full Code EXPECTED DISCHARGE DATE: 01/15/2024 Patient discussed with, will be seen and examined by attending physician, Mayelin Kemp MD It has been a privilege to participate in the care of this patient Johnathan Brown MD Resident, PGY1, [facility] This chart was completed in part utilizing [employer] Speech Voice Recognition Software. Grammatical errors, random word insertions, pronoun errors, and incomplete sentences are an occasional consequence of this system due to software limitations, ambient noise, and hardware issues. Any formal questions or concerns about the content, text, or information contained within the body of this dictation should be directly addressed to the provider for clarification. Cosigned by Mayelin Kemp MD at 01/15/2024 4:14 PM EST Associated attestation - Mayelin Kemp MD - 01/15/2024 4:14 PM EST I saw and evaluated the patient today. I have reviewed the resident/fellow physician note and agree. I spent a total of 35 minutes coordinating, documenting, and providing care for this patient excluding time spent in the performance of separately billed services or time spent by another provider/QHP. Roby Kemp MD Interventional Cardiology [place] 01/15/24 4:14 PM * Johnathan Brown MD - 01/14/2024 5:54 AM EST Images from the original note were not included. [facility] H868/A PROGRESS NOTE - Cardiovascular Medicine [address] [address] Name: Russ Love [place] [facility] [place] H868/A Date: 01/14/2024 Time: 5:59 AM Date of admission: 01/08/2024 Brief Summary: 83 y/o M w/PMHx of HTN, DLD, DM2, known RBBB and recently diagnosed LBBB, moderate to severe who presented from OSH after OOH VF cardiac arrest w/ROSC and c/f newly noted HFrEF (30%). Hospital course complicated by gross hematuria (ongoing CBI, urology following) and acute blood loss anemia. He is now s/p PCI w/DESx6 (LADx3, LCXx1, RCAx2) with ongoing plans for ICD and TAVR. INTERVAL HISTORY: Overnight: occasional raina, MAP stable, no fevers, CBI filed as net (-) Reports voiding bowel well 01/11, passing flatus, No acute concerns, no chest pain or palpitations Objective Most Recent Vital Signs: BP: 121 mmHg/63 mmHg (01/14/24509) Pulse: 60 (01/14/24509) Resp: 16 (01/13/242246) Temp: 36.33 C (01/13/242246) Temp Summary: Temp Min: 36.3 C (97.4 F) Max: 36.6 C (97.9 F) SpO2: 96 % (01/13/242246) O2 flow rate: Supplemental O2 Delivery: Room Air, None (01/13/242246) Vital Signs Last 24 Hours: Systolic BP: Most Recent Systolic BP Av.1 mmHg Min: 110 mmHg Max: 153 mmHg Diastolic BP: Most Recent Diastolic BP Av.4 mmHg Min: 51 mmHg Max: 85 mmHg Temperature: Most Recent Temperature Av.5 C Min: 36.33 C Max: 36.61 C Pulse: Pulse Av.1 Min: 54 Max: 77 Respirations: Resp Av.5 Min: 16 Max: 18 SpO2: SpO2 Av.6 % Min: 96 % Max: 100 % Urethral Catheter (Active) Number of days: 6 Peripheral Line Right Antecubital 18 Gauge (Active) Number of days: 6 Peripheral Line Left;Upper 18 Gauge (Active) Number of days: 5 Intake & Output Summary (Last 24 hours): Intake/Output Summary (Last 24 hours) at 01/14/2024 0559 Last data filed at 01/13/2024 1827 Gross per 24 hour Intake 0 ml Output 2700 ml Net -2700 ml Net IO Since Admission: -369.35 mL [01/09/24 0603] Output by Drain (mL) 01/13/24 0700 - 01/13/24 1459 01/13/24 1500 - 01/13/24 2259 01/13/24 2300 - 01/14/24 0559 Range Total Requested LDAs do not have output data documented. Bowels: Last Bowel Movement: 01/11/24 (01/13/241999) Stool Description: Other - Describe (no stool to assess at this time) (01/12/24999) Height/Wt Weight Trend: Wt Readings from Last 7 Encounters: 01/13/24 85.1 kg (187 lb 9.8 oz) 12/20/23 86.2 kg (190 lb) 09/04/23 82.8 kg (182 lb 9.6 oz) 03/04/23 84.5 kg (186 lb 3.2 oz) 12/18/22 84.3 kg (185 lb 12.8 oz) 09/01/22 84.4 kg (186 lb) 06/15/22 83.9 kg (185 lb) Earliest Wt This Admission Weight: 84.6 kg (186 lb 8.2 oz) (01/08/242229) Most Recent Wt This Admission Weight: 85.1 kg (187 lb 9.8 oz) (01/13/24441) Weight change: Body mass index is 26.54 kg/m. Physical Exam Constitutional: no acute distress, resting comfortably supine in bed Neuro: alert and attentive to conversation, hearing grossly intact to conversation, no facial asymmetry, moves all 4 distal extremities spontaneously Head/face, ears, nose, throat: normocephalic, atraumatic, oral mucosa moist, partially edentulous Cardiovascular: (+) holosystolic murmur, RRR, well perfused distally, DP/R pulses +2 Pulm: breathing comfortably on room air, no accessory muscle use, CTAB posteriorly Abd: soft, non tender throughout, bowel sounds audible : celeste catheter in place draining pink urine, some clots Extremities: no edema Surgical Site: R wrist some ecchymosis, no hematoma, R pulses +2 sym, neurovascularly intact distally, no bruit Laboratory Values: Blood Gas: No results in the last 7 days - inpatent use only Chemistry Panel: Lab results within last 7 days (see chart for full results) Units 01/13/24 0722 01/12/24 0515 01/11/24 0442 01/10/24 0446 01/09/24 0436 01/08/24 2244 SODIUM mmol/L 133* 135 134* 134* 143 139 POTASSIUM mmol/L 4.3 4.2 4.1 4.1 3.9 4.1 CHLORIDE mmol/L 100 102 101 101 106 103 CO2 mmol/L 23 23 20* 21* 20* 19* EGFR mL/min >90 87 88 86 >90 90 BUN mg/dL 15 16 18 18 13 14 CREATININE mg/dL 0.7 0.8 0.8 0.8 0.7 0.7 GLUCOSE mg/dL 191* 168* 146* 139* 116 150* CALCIUM mg/dL 8.7 8.4 8.4 8.8 8.5 8.5 Magnesium mg/dL 1.9 1.9 2.1 1.8 2.0 2.0 Phosphorus mg/dL 3.6 3.5 3.3 3.2 3.8 4.0 ANION GAP mmol/L 10 10 13 12 17* 17* Complete Blood Count: Lab results within last 7 days (see chart for full results) Units 01/13/24 2214 01/13/24 0722 01/12/24 1816 01/12/24 0514 01/11/24 1632 01/11/24 0442 01/10/24 1957 01/10/24 0446 01/09/24 0436 WBC K/uL -- 6.80 -- 6.74 8.95 8.56 10.00 8.69 8.08 HGB g/dL 8.3* 8.5* 8.7* 8.8* 9.6* 9.9* 10.4* 11.5* 12.1* HCT % 26.2* 26.5* 28.4* 27.1* 30.9* 30.5* 33.3* 35.9* 37.9* PLT K/uL -- 167 -- 153 182 159 175 142 142 MCV fL -- 87.2 -- 86.0 88.0 85.9 88.1 86.7 86.5 Cardiac Studies: Lab results within last 7 days (see chart for full results) Units 01/09/24 0436 01/08/24 2244 Troponin T, High Sensitivity ng/L 56* 59* Coagulation Studies: Lab results within last 7 days (see chart for full results) Units 01/13/24 0722 01/12/24 0515 01/11/24 0442 01/10/24 1816 01/10/24 0446 01/09/24 1917 01/09/24 1105 01/09/24 0436 01/08/24 2244 Prothrombin Time seconds 13.5 13.3 13.4 -- 13.6 -- -- 14.2 14.1 INR 1.0 1.0 1.0 -- 1.0 -- -- 1.1 1.1 aPTT seconds -- -- -- -- -- -- -- -- 53* Heparin, Unfractionated IU/mL -- 0.43* 0.36* 0.47* 0.34* 0.31* 0.41* 0.19* 0.20* Liver Function Panel: Lab results within last 7 days (see chart for full results) Units 01/08/24 2244 Triglycerides mg/dL 102 Infectious Studies: Lab results within last 7 days (see chart for full results) Units 01/12/24 1113 01/10/24 1957 01/09/24 0047 Lactate mmol/L 1.7 1.3 0.7 Cultures: reviewed. No results in the last 7 days - inpatent use only Recent Cultures (2 Weeks) No lab values to display. Radiographic Studies: US PELVIS TRANS-ABDOMINAL LIMITED Result Date: 01/13/2024 IMPRESSION Dependent material in the urinary bladder which could be clot and measures 3.4 x 3.1 x 5.3 cm. A mass is difficult to exclude. CTA ABD/PELVIS Result Date: 01/12/2024 IMPRESSION Active bleeding in the bladder. The above finding was communicated via secured text to Dr. Johnathan Brown on 01/12/2024 at 3:18 pm CARDIAC STUDIES: TTE 2016 Interpretation Summary The examination is adequate to evaluate the referral indication. Sinus rhythm with frequent ectopy was present during the echocardiogram. The LV wall thickness is mildly increased (concentric). The left ventricular wall motion is normal. The qualitative LV ejection fraction is 5559% (normal). The aortic valve has three leaflets. Moderate aortic valve sclerosis is present. Aortic stenosis is absent. There is no significant aortic regurgitation. There is no evidence of pulmonary hypertension. The aortic root and proximal ascending aorta are mildly enlarged. TTE 09/12/2022 Interpretation Summary The examination is adequate to evaluate the referral indication. There was normal sinus rhythm with ventricular trigeminy during the examination. The left ventricular cavity size is normal. The LV wall thickness is moderately increased (concentric). The septal motion is abnormal consistent with intrventricular conduction delay. The regional left ventricular wall motion is otherwise normal. The qualitative LV ejection fraction is 50-54% (normal). The aortic valve is moderately calcified. Moderate aortic valve stenosis is present. The left ventricular diastolic function is mildly abnormal (grade I). Mild mitral regurgitation is present. TTE 11/12/23 Interpretation Summary The qualitative LV ejection fraction is 40-44% [...] has declined, aortic valve systolic gradient unchanged. TTE 01/10/24 Interpretation Summary The examination is adequate to evaluate the referral indication. The qualitative LV ejection fraction is 30-34% (moderately reduced). There is diffuse hypokinesis with dyssynchronous LV contractility due to LBBB. The left ventricularcavity size is mildly enlarged. The right ventricular systolic function is qualitatively normal. Aortic stenosis is detected but not quantitated. Consider low dose dobutamine protocol for assessment of severity if clinically warranted. Cardiac Cath 01/10/24 *R radial access Additional Findings: Coronary disease - hemodynamically significant LAD diffusely diseased, up to 50% stenosis in the mid LAD and up to 80% stenosis just distal to D3. Prox LCX 70% stenosis Mid RCA 70% stenosis Cardiac Cath 01/13/24 Additional Findings: Coronary disease - hemodynamically significant LAD diffusely disease up to 80% pLCX 70% stenosis Mid RCA 70% stenosis Intervention Summary: LAD lesion treated with 3 overlapping drug-eluting stent (2.5mm x 15mm [place]; 2.25 mm X 22 mm [place]; 2.0 mm X 18 mm [place], prox to distal). LCX lesion treated with 1 drug-eluting stent (2.0mm x 12mm [place]). RCA lesion treated with 2 overlapping drug-eluting stent (2.5 mm X 26 mm [place]; 2.5 mm x 26mm [place]). Final angiographic result with 0% residual stenosis, SUELLEN 3 flow, and no evidence of dissection or perforation. Intervention Procedure Details: A 6 [place] EBU 3.5 guide catheter was used to engage the LMCA. A Runthrough coronary guidewire was used to cross the lesion and advanced into the LAD. The lesion was pre-dilated with a 2.0 mm semi-compliant balloon. 3 drug eluting stents were then deployed across the entire lesion (Prox to distal: 2.5 mm X 15 [place], 2.25 mm X 22mm [place], 2.5 mm X 15 mm [place]). The stent was post dilated with a 2.5 mm non-compliant balloon. Final angiographic result with 0% residual stenosis, SUELLEN 3 flow, and no evidence of dissection or perforation. A 6 [place] EBU 3.5 guide catheter was used to engage the LMCA. A Runthrough coronary guidewire was used to cross the lesion and advanced into the LCX. The lesion was pre-dilated with a 2.0mm and 2.5 mm semi-compliant balloon. A 2.0 mm x 12 mm [place] drug-eluting stent was then deployed across the entire lesion. The stent was post dilated with a 2.5 mm non-compliant balloon. Excellent angiographic result with 0% residual stenosis, SUELLEN 3 flow, and no evidence of dissection or perforation. A 6 [place] JR4 guide catheter was used to engage the RCA. A Runthrough coronary guidewire was used to cross the lesion and advanced into the RCA. The lesion was pre-dilated with a 1.5mm, 2.0mm, and 2.5 mm semi-compliant balloon. Two drug- eluting stents were then deployed across the entire lesion (proximally to distally 2.5 mm X 26 mm [place] overlapping a 2.5 mm X 26 mm [place]). The stent was post dilated with a 2.5 mm and 2.75 mm non-compliant balloon. Final angiographic result with 0% residual stenosis, SUELLEN 3 flow, and no evidence of dissection or perforation. CT TAVR 01/10/24 IMPRESSION: Aortic valve is trileaflet with severe annular calcifications. Total annular calcium score of 2049.Small eccentric sub valvular calcification extending from non coronary cusp into the LVOT. Maximum annular distension measured on 15% R-R. Annulus measures 6.03 cm2. LVOT 4 mm below annular plane measures6.12 cm2. Minimal coronary artery height from the annulus approximately 16 mm on the left. Severe trivessel coronary artery atherosclerosis. Cardiomegaly with concentric hypertrophy of the left ventricular myocardium. No significant iliofemoral atherosclerosis. Minimal luminal diameter of 8.6 mm on the right. Mild tortuosity. 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 Infrarenal abdominal aortic aneurysm measuring up to 23 mm. Prior to Admission medications Medication Sig Last Dose Discont. Lisinopril-hydroCHLOROthiazide 10-12.5 MG Oral Tablet TAKE 1/2 TABLET BY MOUTH EVERY DAY Jardiance 25 MG Oral Tablet (Empagliflozin) TAKE 1 TABLET BY MOUTH ONCE DAILY glipiZIDE ER 5 MG Oral Tablet Extended Release 24 Hour (Glucotrol XL) TAKE 1 TABLET BY MOUTH EVERY MORNING metFORMIN HCl 1000 MG Oral Tablet (Glucophage) TAKE 1 TABLET BY MOUTH TWICE DAILY Atorvastatin Calcium 40 MG Oral Tablet (Lipitor) Take 1 Tablet by mouth in the morning. Vitamin C 125 MG Oral Tablet Chewable Take by mouth. OneTouch Ultra In Vitro Strip (Glucose Blood) use to test blood sugars once daily as directed traMADol HCl 50 MG Oral Tablet (Ultram) Take 1 Tablet by mouth every 6 hours as needed for Pain, Severe. Patient not taking: Reported on 12/20/2023 CYANOCOBALAMIN (VITAMIN B-12) 100 MCG Tablet Take 1 Tablet by mouth in the morning. VITAMIN D 1000 UNIT PO CAPS 1 capsule daily LANCETS MISC once daily ONE TOUCH ULTRA BONUS PACK KIT as directed Current Facility-Administered Medications Medication Dose Route Frequency Provider clopidogrel (pLAVix) tab 75 mg 75 mg Oral Daily(AM) Johnathan Brown MD Enoxaparin (Lovenox) inj 40 mg 40 mg Subcutaneous Daily(AM) Johnathan Brown MD amiodarone (Cordarone) tab 400 mg 400 mg Oral TID(AM/NOON/HS) Johnathan Brown MD melatonin tab 6 mg 6 mg Oral HS Johnathan Brown MD Metoprolol Tartrate (Lopressor) tab 12.5 mg 12.5 mg Oral Q12H Johnathan Brown MD chlorHEXIDINE (Periogard) 0.12 % oral rinse 15 mL 15 mL Swish & Spit BID () Johnathan Brown MD Polyethylene Glycol 3350 (Miralax) oral powder 17 g 1 Packet Oral Daily PRN Johnathan Brown MD senna-docusate (Senokot-S) 1 Tablet 1 Tablet Oral Daily(AM) Johnathan Brown MD aspirin chew tab 81 mg 81 mg Oral Daily(AM) Geo Barroso MD atorvaSTATin (Lipitor) tab 40 mg 40 mg Oral Q 1700 Geo Barroso MD dextrose 50% inj 25 mL 25 mL IV Push PRN Geo Barroso MD dextrose 50% inj 50 mL 50 mL IV Push PRN Geo Barroos MD glucagon (Glucagen) inj 1 mg 1 mg Intramuscular PRN Geo Barroso MD Glucose (Glutose 15) 40 % gel 15 g of glucose 15 g of glucose Oral PRN Geo Barroso MD Glucose (Glutose 15) 40 % gel 30 g of glucose 30 g of glucose Oral PRN Geo Barroso MD glucose chew tab 16 g 16 g Oral PRN Geo Barroso MD insulin aspart (NovoLOG) inj Subcutaneous With meals Geo Barroso MD oxybutynin (Ditropan) tab 5 mg 5 mg Oral TID PRN Marilu Lee DO amiodarone (Cordarone) 900 mg in NSS 500 mL INFUSION 0.5 mg/min Central IV Continuous Call Pharmacyto Dispense Geo Barroso MD chlorHEXIDINE (Periogard) 0.12 % oral rinse 15 mL 15 mL Oral mucosal membrane BID () Geo Barroso MD Oral Hygiene: Mouth Swab with dentifrice Oral Q4H Limited (00;04;12;16) Geo Barroso MD sodium chloride 0.9 % flush peripheral adriano 3 mL 3 mL IV Push Q8H Geo Barroso MD Assessment and Plan IMPRESSION : Principal Problem: NSTEMI (non-ST elevated myocardial infarction) (HCC) Active Problems: History of tobacco use Vitamin D deficiency Right thyroid nodule Aortic valve stenosis History of cardiac arrest Hematuria, gross Coronary artery disease involving [place] coronary artery of [place] heart Encounter for dental examination Acute blood loss anemia Resolved Problems: * No resolved hospital problems. * 83 y/o M w/PMHx as above who presented for out of hospital VF arrest w/ROSC no s/p intubation extubation at OSH before transfer. Also has history of moderate vs severe based on echo reports with newly reduced EF. Found to have multivessel CAD and ongoing plans for AVR/CABG vs TAVR/PCI. Course complicated by gross hematuria in the setting of celeste placed PRODUCTION HAND with worsening anemia. VF arrest OOH s/p electrical cardioversion with ROSC. Transfer from OSH. ? Valve vs mild ischemic cardiomyopathy though today's cath report not entirely convincing given lack of total occlusion. 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 May require celeste on dispo vs other, CBI intermittent with clots throughout the day. -oxybutynin prn for bladder spasm -continue CBI and stat page uro if c/f celeste obstruction or clotting -trend Hgb, transfuse for Hgb<8, maintain active T&S Miscellaneous Dental: consulted, recommending chlorhexidine swish BID, outpatient follow up for extractions Dental hygiene orders in Pt's loose teeth represent intubation risk and should be noted by anesthesia in the event of MARILYN for any procedures Sleep: melatonin Chronic conditions: Hypertension: discontinue PRODUCTION HAND lisinopril-hydrochlorothiazide for GDMT as above Type 2 diabetes: Hold PRODUCTION HAND metformin, glipizide, continue with LDSS Hold PRODUCTION HAND vitamin B12, vitamin-D Diet: Orders Placed This Encounter Procedures Adult Complex Diet : Heart Healthy VTE Prophylaxis: Enoxaparin Bowel Regimen: senokot daily, prn miralax Last Bowel Movement: 01/11/24 (01/13/241999) PT/OT: not consulted List of services consulted/following: UROLOGY CONSULT IP CARDIAC SURGERY CONSULT IP ELECTROPHYSIOLOGY CONSULT IP DENTISTRY CONSULT IP CARDIAC REHAB CONSULT IP PHARMACY CONSULT IP PHARMACOLOGIC VTE PROPHYLAXIS: Enoxaparin CODE STATUS: Full Code EXPECTED DISCHARGE DATE: 01/14/2024 Patient discussed with, will be seen and examined by attending physician, Mayelin Kemp MD It has been a privilege to participate in the care of this patient Johnathan Brown MD Resident, PGY1, [facility] This chart was completed in part utilizing [employer] Speech Voice Recognition Software. Grammatical errors, random word insertions, pronoun errors, and incomplete sentences are an occasional consequence of this system due to software limitations, ambient noise, and hardware issues. Any formal questions or concerns about the content, text, or information contained within the body of this dictation should be directly addressed to the provider for clarification. Cosigned by Mayelin Kemp MD at 01/14/2024 7:13 PM EST Associated attestation - Mayelin Kemp MD - 01/14/2024 7:13 PM EST I saw and evaluated the patient today. I have reviewed the resident/fellow physician note and agree. I spent a total of 35 minutes coordinating, documenting, and providing care for this patient excluding time spent in the performance of separately billed services or time spent by another provider/QHP. Roby Kemp MD Interventional Cardiology [place] 01/14/24 7:13 PM * Bryan Braun MD - 01/13/2024 7:40 AM EST PROGRESS NOTE - Urology [address] [id number] Name: Russ Love [place] [facility] [place] [facility]68[place]A Date: 01/13/2024 Time: 7:40 AM SUBJECTIVE: CTA abdomen pelvis with active small active bleed noted. Hgb has slowly downtrended 13.3 to 8.5 since 01/06. Did not require irrigation or any issues with the Celeste last night. No other acute events overnight, afebrile and hemodynamically stable. Edwards red in tubing with clot staining in tubing Patient denies fevers, chills, night sweats, nausea, vomiting, diarrhea, chest pain, and shortness of breath. PHYSICAL EXAMINATION: Most Recent Vital Signs: BP: 136 mmHg/60 mmHg (01/13/24 0640) Pulse: 59 (01/13/24 0640) Resp: 18 (01/13/24199) Temp: 36.39 C (01/13/24199) Temp Summary: Temp Min: 36.4 C (97.5 F) Max: 37 C (98.6 F) SpO2: 94 % (01/13/24199) O2 flow rate: Supplemental O2 Delivery: Room Air, None (01/13/24199) Intake/Output Summary (Last 24 hours) at 01/13/2024 0740 Last data filed at 01/12/2024 1900 Gross per 24 hour Intake 939.07 ml Output -- Net 939.07 ml Output by Drain (mL) 01/12/24 0700 - 01/12/24 1459 01/12/24 1500 - 01/12/24 2259 01/12/24 2300 - 01/13/24 0659 01/13/24 0700 - 01/13/24 0740 Range Total Requested LDAs do not have output data documented. Since admission: Net IO Since Admission: -748.47 mL [01/10/24 0752] Last Bowel Movement: 01/11/24 Stool Description: Other - Describe (no stool to assess at this time) General: awake, alert and responsive Heart:: Regular rate Chest: Normal WOB Abdomen: soft NT ND Extremities: no deformities : Celeste catheter draining blood-tinged urine on slow drip of CBI LABS: CBC Lab Results Component Value Date/Time WBC 6.74 01/12/2024 05:14 AM WBC 5.93 10/21/2019 12:09 PM HGB 8.7 (L) 01/12/2024 06:16 PM HGB 13.3 (A) 01/07/2024 12:00 AM HGB 10.7 (L) 10/21/2019 12:09 PM HCT 28.4 (L) 01/12/2024 06:16 PM HCT 35.5 (L) 10/21/2019 12:09 PM PLT 153 01/12/2024 05:14 AM PLT 197 10/21/2019 12:09 PM BMP Lab Results Component Value Date/Time NA 135 01/12/2024 05:15 AM NA 139 10/21/2019 12:09 PM POTASSIUM 4.2 01/12/2024 05:15 AM POTASSIUM 3.6 01/07/2024 12:00 AM POTASSIUM 4.7 10/21/2019 12:09 PM CL 102 01/12/2024 05:15 AM CL 100 10/21/2019 12:09 PM CO2 23 01/12/2024 05:15 AM CO2 28 10/21/2019 12:09 PM BUN 16 01/12/2024 05:15 AM BUN 22 (H) 10/21/2019 12:09 PM CREAT 0.8 01/12/2024 05:15 AM CREAT 1.0 01/07/2024 12:00 AM CREAT 1.0 10/21/2019 12:09 PM Ca, Mg, Phos Lab Results Component Value Date/Time CA 8.4 01/12/2024 05:15 AM CA 9.6 10/21/2019 12:09 PM MG 1.9 01/12/2024 05:15 AM PHOSPHORUS 3.5 01/12/2024 05:15 AM CULTURES: No results found for: "CULTURE" IMAGING: CTA ABD/PELVIS Result Date: 01/12/2024 IMPRESSION Active bleeding in the bladder. The above finding was communicated via secured text to Dr. Johnathan Brown on 01/12/2024 at 3:18 pm ASSESSMENT: 83 year old male w/ PMHx of HTN, DLD, DM2, known RBBB and recently diagnosed LBBB moderate to severe who presented from OSH after OOH VF cardiac arrest w/ROSC seen in consultation for gross hematuria manage conservatively with CBI PLAN: - No plan for operating room until his cardiac status as addressed as of now. Urological procedure would require general anesthesia and while we address his cardiac issues we can conservatively manage the gross hematuria with CBI and transfusion as indicated. -Okay to start DAPT as cardiac issues is more pressing - while awaiting the final plan for the management of multivessel disease and severe aortic stenosis, continue CBI on slow drip. - If urine darkens, please page us and titrate rate of continuous bladder irrigation (CBI) to keep urine clear and light pink - RN can flush celeste PRN for clots - If concerned for clot retention, clamp CBI and evaluate with bladder scan. Please page us if concern about catheter occlusion - Patient will ultimately require outpatient evaluation for gross hematuria including CT urogram and office cystoscopy Patient to be discussed with Dr Braun. Ge Grimaldo MD Urology PGY-3 [facility] 01/13/2024, 7:45 AM I saw and evaluated the patient today. I have reviewed the resident/fellow physician note and agree. Okay to continue with anticoagulation. We will manage his CBI. Very enlarged prostate on imaging. Managed conservatively given the cardiac issues, OR for clot evacuation and fulguration only if absolutely necessary. Bryan Braun MD * Johnathan Brown MD - 01/13/2024 5:56 AM EST Images from the original note were not included. [facility] H868/A PROGRESS NOTE - Cardiovascular Medicine [address] [address] Name: Russ Love Location: [facility] [place] H868/A Date: 01/13/2024 Time: 5:56 AM Date of admission: 01/08/2024 Brief Summary: 83 y/o M w/PMHx of HTN, DLD, DM2, known RBBB and recently diagnosed LBBB moderate tosevere who presented from OSH after OOH VF cardiac arrest w/ROSC and c/f newly noted HFrEF (30%). Hospital course complicated by gross hematuria (ongoing CBI, urology following) and acute anemia. INTERVAL HISTORY: Overnight: no events, slept well No concerns or symptoms today Objective Most Recent Vital Signs: BP: 136 mmHg/63 mmHg (01/13/24441) Pulse: 60 (01/13/24441) Resp: 18 (01/13/24199) Temp: 36.39 C (01/13/24199) Temp Summary: Temp Min: 36.4 C (97.5 F) Max: 37 C (98.6 F) SpO2: 94 % (01/13/24199) O2 flow rate: Supplemental O2 Delivery: Room Air, None (01/13/24199) Vital Signs Last 24 Hours: Systolic BP: Most Recent Systolic BP Av.7 mmHg Min: 99 mmHg Max: 138 mmHg Diastolic BP: Most Recent Diastolic BP Av.4 mmHg Min: 54 mmHg Max: 91 mmHg Temperature: Most Recent Temperature Av.7 C Min: 36.39 C Max: 37 C Pulse: Pulse Av.9 Min: 56 Max: 85 Respirations: Resp Av.2 Min: 14 Max: 33 SpO2: SpO2 Av.9 % Min: 93 % Max: 100 % Urethral Catheter (Active) Number of days: 5 Peripheral Line Right Antecubital 18 Gauge (Active) Number of days: 5 Peripheral Line Left;Upper 18 Gauge (Active) Number of days: 4 Peripheral Line Lower;Posterior;Right Arm 20 Gauge (Active) Number of days: 3 Intake & Output Summary (Last 24 hours): Intake/Output Summary (Last 24 hours) at 01/13/2024 0556 Last data filed at 01/12/2024 1900 Gross per 24 hour Intake 998.27 ml Output -- Net 998.27 ml Net IO Since Admission: -369.35 mL [01/09/24 0603] Output by Drain (mL) 01/12/24 0700 - 01/12/24 1459 01/12/24 1500 - 01/12/24 2259 01/12/24 2300 - 01/13/24 0556 Range Total Requested LDAs do not have output data documented. Bowels: Last Bowel Movement: 01/11/24 (01/12/241999) Stool Description: Other - Describe (no stool to assess at this time) (01/12/24 1000) Height/Wt Weight Trend: Wt Readings from Last 7 Encounters: 01/13/24 85.1 kg (187 lb 9.8 oz) 12/20/23 86.2 kg (190 lb) 09/04/23 82.8 kg (182 lb 9.6 oz) 03/04/23 84.5 kg (186 lb 3.2 oz) 12/18/22 84.3 kg (185 lb 12.8 oz) 09/01/22 84.4 kg (186 lb) 06/15/22 83.9 kg (185 lb) Earliest Wt This Admission Weight: 84.6 kg (186 lb 8.2 oz) (01/08/242229) Most Recent Wt This Admission Weight: 85.1 kg (187 lb 9.8 oz) (01/13/24441) Weight change: -0.5 kg (-1 lb 1.6 oz) Body mass index is 26.54 kg/m. Physical Exam Constitutional: no acute distress, resting comfortably supine in bed Neuro: PERRL BLT, alert and attentive to conversation, hearing grossly intact to conversation, fully oriented today Head/face, ears, nose, throat: normocephalic, atraumatic, oral mucosa moist, partially edentulous Cardiovascular: (+) holosystolic murmur, RRR, well perfused distally Pulm: breathing comfortably on room air, no accessory muscle use Abd: soft, non tender throughout, no suprapubic tenderness/firmness/distension : celeste catheter in place draining pink urine, no clots Extremities: no edema Surgical Site: R wrist some ecchymosis, no hematoma, R pulses +2 sym, neurovascularly intact distally Laboratory Values: Blood Gas: No results in the last 7 days - inpatent use only Chemistry Panel: Lab results within last 7 days (see chart for full results) Units 01/12/24 0515 01/11/24 44101/10/246 01/09/246 01/08/244 01/07/24 0000 SODIUM mmol/L 135 134* 134* 143 139 -- POTASSIUM mmol/L 4.2 4.1 4.1 3.9 4.1 3.6 CHLORIDE mmol/L 102 101 101 106 103 -- CO2 mmol/L 23 20* 21* 20* 19* -- EGFR mL/min 87 88 86 >90 90 -- BUN mg/dL 16 18 18 13 14 -- CREATININE mg/dL 0.8 0.8 0.8 0.7 0.7 1.0 GLUCOSE mg/dL 168* 146* 139* 116 150* 197* CALCIUM mg/dL 8.4 8.4 8.8 8.5 8.5 -- Magnesium mg/dL 1.9 2.1 1.8 2.0 2.0 -- Phosphorus mg/dL 3.5 3.3 3.2 3.8 4.0 -- ANION GAP mmol/L 10 13 12 17* 17* -- Complete Blood Count: Lab results within last 7 days (see chart for full results) Units 01/12/24 1816 01/12/24 0514 01/11/24 1632 01/11/24 0442 01/10/24 1957 01/10/246 01/09/246 01/08/24 2244 WBC K/uL -- 6.74 8.95 8.56 10.00 8.69 8.08 9.23 HGB g/dL 8.7* 8.8* 9.6* 9.9* 10.4* 11.5* 12.1* 12.7* HCT % 28.4* 27.1* 30.9* 30.5* 33.3* 35.9* 37.9* 39.1* PLT K/uL -- 153 182 159 175 142 142 142 MCV fL -- 86.0 88.0 85.9 88.1 86.7 86.5 87.3 Cardiac Studies: Lab results within last 7 days (see chart for full results) Units 01/09/24 0436 01/08/24 2244 Troponin T, High Sensitivity ng/L 56* 59* Coagulation Studies: Lab results within last 7 days (see chart for full results) Units 01/12/24 0515 01/11/24 0442 01/10/24 1816 01/10/24 0446 01/09/24 1917 01/09/24 1105 01/09/24 0436 01/08/24 2244 Prothrombin Time seconds 13.3 13.4 -- 13.6 -- -- 14.2 14.1 INR 1.0 1.0 -- 1.0 -- -- 1.1 1.1 aPTT seconds -- -- -- -- -- -- -- 53* Heparin, Unfractionated IU/mL 0.43* 0.36* 0.47* 0.34* 0.31* 0.41* 0.19* 0.20* Liver Function Panel: Lab results within last 7 days (see chart for full results) Units 01/08/24 2244 Triglycerides mg/dL 102 Infectious Studies: Lab results within last 7 days (see chart for full results) Units 01/12/24 1113 01/10/24 1957 01/09/24 0047 Lactate mmol/L 1.7 1.3 0.7 Cultures: reviewed. No results in the last 7 days - inpatent use only Recent Cultures (2 Weeks) No lab values to display. Radiographic Studies: CTA ABD/PELVIS Result Date: 01/12/2024 IMPRESSION Active bleeding in the bladder. The above finding was communicated via secured text to Dr. Johnathan Brown on 01/12/2024 at 3:18 pm CARDIAC STUDIES: TTE 2016 Interpretation Summary The examination is adequate to evaluate the referral indication. Sinus rhythm with frequent ectopy was present during the echocardiogram. The LV wall thickness is mildly increased (concentric). The left ventricular wall motion is normal. The qualitative LV ejection fraction is 5559% (normal). The aortic valve has three leaflets. Moderate aortic valve sclerosis is present. Aortic stenosis is absent. There is no significant aortic regurgitation. There is no evidence of pulmonary hypertension. The aortic root and proximal ascending aorta are mildly enlarged. TTE 09/12/2022 Interpretation Summary The examination is adequate to evaluate the referral indication. There was normal sinus rhythm with ventricular trigeminy during the examination. The left ventricular cavity size is normal. The LV wall thickness is moderately increased (concentric). The septal motion is abnormal consistent with intrventricular conduction delay. The regional left ventricular wall motion is otherwise normal. The qualitative LV ejection fraction is 50-54% (normal). The aortic valve is moderately calcified. Moderate aortic valve stenosis is present. The left ventricular diastolic function is mildly abnormal (grade I). Mild mitral regurgitation is present. TTE 11/12/23 Interpretation Summary The qualitative LV ejection fraction is 40-44% [...] has declined, aortic valve systolic gradient unchanged. TTE 01/10/24 Interpretation Summary The examination is adequate to evaluate the referral indication. The qualitative LV ejection fraction is 30-34% (moderately reduced). There is diffuse hypokinesis with dyssynchronous LV contractility due to LBBB. The left ventricularcavity size is mildly enlarged. The right ventricular systolic function is qualitatively normal. Aortic stenosis is detected but not quantitated. Consider low dose dobutamine protocol for assessment of severity if clinically warranted. Cardiac Cath 01/10/24 *R radial access Additional Findings: Coronary disease - hemodynamically significant LAD diffusely diseased, up to 50% stenosis in the mid LAD and up to 80% stenosis just distal to D3. Prox LCX 70% stenosis Mid RCA 70% stenosis CT TAVR 01/10/24 IMPRESSION: Aortic valve is trileaflet with severe annular calcifications. Total annular calcium score of 2049.Small eccentric sub valvular calcification extending from non coronary cusp into the LVOT. Maximum annular distension measured on 15% R-R. Annulus measures 6.03 cm2. LVOT 4 mm below annular plane measures6.12 cm2. Minimal coronary artery height from the annulus approximately 16 mm on the left. Severe trivessel coronary artery atherosclerosis. Cardiomegaly with concentric hypertrophy of the left ventricular myocardium. No significant iliofemoral atherosclerosis. Minimal luminal diameter of 8.6 mm on the right. Mild tortuosity. 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 Infrarenal abdominal aortic aneurysm measuring up to 23 mm. Prior to Admission medications Medication Sig Last Dose Discont. Lisinopril-hydroCHLOROthiazide 10-12.5 MG Oral Tablet TAKE 1/2 TABLET BY MOUTH EVERY DAY Jardiance 25 MG Oral Tablet (Empagliflozin) TAKE 1 TABLET BY MOUTH ONCE DAILY glipiZIDE ER 5 MG Oral Tablet Extended Release 24 Hour (Glucotrol XL) TAKE 1 TABLET BY MOUTH EVERY MORNING metFORMIN HCl 1000 MG Oral Tablet (Glucophage) TAKE 1 TABLET BY MOUTH TWICE DAILY Atorvastatin Calcium 40 MG Oral Tablet (Lipitor) Take 1 Tablet by mouth in the morning. Vitamin C 125 MG Oral Tablet Chewable Take by mouth. OneTouch Ultra In Vitro Strip (Glucose Blood) use to test blood sugars once daily as directed traMADol HCl 50 MG Oral Tablet (Ultram) Take 1 Tablet by mouth every 6 hours as needed for Pain, Severe. Patient not taking: Reported on 12/20/2023 CYANOCOBALAMIN (VITAMIN B-12) 100 MCG Tablet Take 1 Tablet by mouth in the morning. VITAMIN D 1000 UNIT PO CAPS 1 capsule daily LANCETS MISC once daily ONE TOUCH ULTRA BONUS PACK KIT as directed Current Facility-Administered Medications Medication Dose Route Frequency Provider amiodarone (Cordarone) tab 400 mg 400 mg Oral TID(AM/NOON/HS) Johnathan Brown MD melatonin tab 6 mg 6 mg Oral HS Johnathan Brown MD Metoprolol Tartrate (Lopressor) tab 12.5 mg 12.5 mg Oral Q12H Johnathan Brown MD chlorHEXIDINE (Periogard) 0.12 % oral rinse 15 mL 15 mL Swish & Spit BID (0800,1999) Johnathan Brown MD Polyethylene Glycol 3350 (Miralax) oral powder 17 g 1 Packet Oral Daily PRN Johnathan Brown MD senna-docusate (Senokot-S) 1 Tablet 1 Tablet Oral Daily(AM) Johnathan Brown MD aspirin chew tab 81 mg 81 mg Oral Daily(AM) Geo Barroso MD atorvaSTATin (Lipitor) tab 40 mg 40 mg Oral Q 1700 Geo Barroso MD dextrose 50% inj 25 mL 25 mL IV Push PRN Geo Barroso MD dextrose 50% inj 50 mL 50 mL IV Push PRN Geo Barroso MD glucagon (Glucagen) inj 1 mg 1 mg Intramuscular PRN Geo Barroso MD Glucose (Glutose 15) 40 % gel 15 g of glucose 15 g of glucose Oral PRN Geo Barroso MD Glucose (Glutose 15) 40 % gel 30 g of glucose 30 g of glucose Oral PRN Geo Barroso MD glucose chew tab 16 g 16 g Oral PRN Geo Barroso MD insulin aspart (NovoLOG) inj Subcutaneous With meals Geo Barroso MD oxybutynin (Ditropan) tab 5 mg 5 mg Oral TID PRN Marilu Lee DO amiodarone (Cordarone) 900 mg in NSS 500 mL INFUSION 0.5 mg/min Central IV Continuous Call Pharmacyto Dispense Geo Barroso MD chlorHEXIDINE (Periogard) 0.12 % oral rinse 15 mL 15 mL Oral mucosal membrane BID (0800,1999) Geo Barroso MD Oral Hygiene: Mouth Swab with dentifrice Oral Q4H Limited (00;04;12;16) Geo Barroso MD sodium chloride 0.9 % flush peripheral adriano 3 mL 3 mL IV Push Q8H Geo Barroso MD Assessment and Plan IMPRESSION : Principal Problem: NSTEMI (non-ST elevated myocardial infarction) (HCC) Active Problems: History of tobacco use Vitamin D deficiency Right thyroid nodule Aortic valve stenosis History of cardiac arrest Hematuria, gross Coronary artery disease involving [place] coronary artery of [place] heart Encounter for dental examination Resolved Problems: * No resolved hospital problems. * 83 y/o M w/PMHx as above who presented for out of hospital VF arrest w/ROSC no s/p intubation extubation at OSH before transfer. Also has history of moderate vs severe based on echo reports with newly reduced EF. Found to have multivessel CAD and ongoing plans for AVR/CABG vs TAVR/PCI. Course complicated by gross hematuria in the setting of celeste placed PRODUCTION HAND with worsening anemia. VF arrest OOH s/p electrical cardioversion with ROSC. Transfer from OSH. ? Valve vs mild ischemic cardiomyopathy though today's cath report not entirely convincing given lack of total occlusion. -continue amio gtt -400mg po TID Plan to discontinue gtt 01/14/24 -telemetry monitoring -EP following for potential consideration of ICD HFrEF (40%) Moderate possibly severe aortic stenosis Valvular disease potential inciting factor for VF arrest as well. - hold PRODUCTION HAND jardiance given plans for PCI tomorrow - hold PRODUCTION HAND lisinopril(HCTZ) for the same - did not tolerate coreg 2/2 pressures, lopressor 12.5 BID - advance GDMT as pressures/procedural planning allow - PCI today, TAVR to follow thereafter - [id number] except Rx until procedure Multivessel coronary artery disease NSTEMI Possible etiology of VF arrest. -PCI today, load with clopidogrel and 75mg qd + ASA thereafter x1 year, atorvastatin 40mg qd ABLA Hematuria CTA today confirmed active bleeding in the bladder. From cardiology perspective Pt's coronary disease will be stabilized today s/p PCI. Requires definitive bladder hemorrhage control, with DAPT therapy will increase risk of ongoing bleed. Will update urology and seek recs for safest timeline and methodology to control bleed. -okay to resume DVT ppx w/lovenox -oxybutynin prn for bladder spasm -continue CBI and stat page uro if c/f celeste obstruction or clotting Close intake/output monitoring and documentation of CBI is essential -will ultimately f/u with their services on dispo -trend H&H q24 and am CBC, transfuse for Hgb<8, maintain active T&S Miscellaneous Dental: consulted, recommending chlorhexidine swish BID, outpatient follow up for extractions Dental hygiene orders in Pt's loose teeth represent intubation risk and should be noted by anesthesia in the event of MARILYN for any procedures Sleep: melatonin Chronic conditions: Hypertension: Hold PRODUCTION HAND lisinopril-hydrochlorothiazide Type 2 diabetes: Hold PRODUCTION HAND metformin, glipizide, continue with low-dose sliding scale insulin Hold PRODUCTION HAND vitamin B12, vitamin-D Diet: Orders Placed This Encounter Procedures Adult Complex Diet : Heart Healthy VTE Prophylaxis: SCD Bowel Regimen: senokot daily, prn miralax Last Bowel Movement: 01/11/24 (01/12/241999) PT/OT: not consulted List of services consulted/following: UROLOGY CONSULT IP CARDIAC SURGERY CONSULT IP ELECTROPHYSIOLOGY CONSULT IP DENTISTRY CONSULT IP PHARMACOLOGIC VTE PROPHYLAXIS: This patient does not have an active medication from one of the medication groupers. CODE STATUS: Full Code EXPECTED DISCHARGE DATE: No information available Patient discussed with, will be seen and examined by attending physician, Mayelin Kemp MD It has been a privilege to participate in the care of this patient Johnathan Brown MD Resident, PGY1, [facility] This chart was completed in part utilizing [employer] Speech Voice Recognition Software. Grammatical errors, random word insertions, pronoun errors, and incomplete sentences are an occasional consequence of this system due to software limitations, ambient noise, and hardware issues. Any formal questions or concerns about the content, text, or information contained within the body of this dictation should be directly addressed to the provider for clarification. Cosigned by Mayelin Kemp MD at 01/13/2024 4:58 PM EST Associated attestation - Mayelin Kemp MD - 01/13/2024 4:58 PM EST I saw and evaluated the patient today. I have reviewed the resident/fellow physician note and agree. I spent a total of 35 minutes coordinating, documenting, and providing care for this patient excluding time spent in the performance of separately billed services or time spent by another provider/QHP. Roby Kemp MD Interventional Cardiology [place] 01/13/24 4:58 PM * Ana Maria Kwan MD - 01/11/2024 8:34 AM EST PROGRESS NOTE - Urology [facility] [place] [address] Name: Russ Love Location: [facility] [place] H[facility]/A Date: 01/11/2024 Time: 8:34 AM SUBJECTIVE: Did not require irrigation or any issues with the Celeste last night. No other acute events overnight, afebrile and hemodynamically stable. All questions answered at bedside. PHYSICAL EXAMINATION: Most Recent Vital Signs: BP: 112 mmHg/58 mmHg (01/11/24 0800) Pulse: 66 (01/11/24 08) Resp: 21 (01/11/24 08) Temp: 37.11 C (01/11/24 08) Temp Summary: Temp Min: 36.2 C (97.2 F) Max: 37.1 C (98.8 F) SpO2: 99 % (01/11/24 08) O2 flow rate: Supplemental O2 Delivery: Room Air, None (01/11/24 09) Intake/Output Summary (Last 24 hours) at 01/11/2024 08 Last data filed at 01/11/2024 08 Gross per 24 hour Intake 1270.86 ml Output -- Net 1270.86 ml Output by Drain (mL) 01/10/24 0700 - 01/10/24 1459 01/10/24 1500 - 01/10/24 2259 01/10/24 2300 - 01/11/24 0659 01/11/24 0700 - 01/11/24 0834 Range Total Requested LDAs do not have output data documented. Since admission: Net IO Since Admission: -748.47 mL [01/10/24 0752] Last Bowel Movement: ("few days ago per pt") Stool Description: Other - Describe (no stool to assess at this time) General: awake, alert and responsive Heart:: Regular rate Chest: Normal WOB Abdomen: soft NT ND Extremities: no deformities : Celeste catheter draining blood-tinged urine on slow drip of CBI LABS: CBC Lab Results Component Value Date/Time WBC 8.56 01/11/2024 04:42 AM WBC 5.93 10/21/2019 12:09 PM HGB 9.9 (L) 01/11/2024 04:42 AM HGB 13.3 (A) 01/07/2024 12:00 AM HGB 10.7 (L) 10/21/2019 12:09 PM HCT 30.5 (L) 01/11/2024 04:42 AM HCT 35.5 (L) 10/21/2019 12:09 PM PLT 159 01/11/2024 04:42 AM PLT 197 10/21/2019 12:09 PM BMP Lab Results Component Value Date/Time NA 134 (L) 01/11/2024 04:42 AM NA 139 10/21/2019 12:09 PM POTASSIUM 4.1 01/11/2024 04:42 AM POTASSIUM 3.6 01/07/2024 12:00 AM POTASSIUM 4.7 10/21/2019 12:09 PM CL 101 01/11/2024 04:42 AM CL 100 10/21/2019 12:09 PM CO2 20 (L) 01/11/2024 04:42 AM CO2 28 10/21/2019 12:09 PM BUN 18 01/11/2024 04:42 AM BUN 22 (H) 10/21/2019 12:09 PM CREAT 0.8 01/11/2024 04:42 AM CREAT 1.0 01/07/2024 12:00 AM CREAT 1.0 10/21/2019 12:09 PM Ca, Mg, Phos Lab Results Component Value Date/Time CA 8.4 01/11/2024 04:42 AM CA 9.6 10/21/2019 12:09 PM MG 2.1 01/11/2024 04:42 AM PHOSPHORUS 3.3 01/11/2024 04:42 AM CULTURES: No results found for: "CULTURE" IMAGING: No imaging results in the last 24 hours ASSESSMENT: 83 year old male w/ PMHx of HTN, DLD, DM2, known RBBB and recently diagnosed LBBB moderate to severe who presented from OSH after OOH VF cardiac arrest w/ROSC seen in consultation for gross hematuria manage conservatively with CBI PLAN: - while awaiting the final plan for the management of multivessel disease and severe aortic stenosis, continue CBI on slow drip. - If urine darkens, please page us and titrate rate of continuous bladder irrigation (CBI) to keep urine clear and light pink - RN can flush celeste PRN for clots - If concerned for clot retention, clamp CBI and evaluate with bladder scan. Please page us if concern about catheter occlusion - Patient will ultimately require outpatient evaluation for gross hematuria including CT urogram and office cystoscopy Patient to be discussed with Dr mccormick. Addendum: CTA was obtained by primary service with a small amount of active bleeding in the bladderwith small amount of residual clots. Unclear if there is any tumor below the clot or not. No plan for operating room until his cardiac status as addressed as of now. Urological procedure would require general anesthesia and while we address his cardiac issues we can conservatively manage the gross hematuria with CBI and transfusion as indicated. Okay to start DAPT as cardiac issues is more pressing Ana Maria Kwan MD 01/11/2024 8:35 AM Cosigned by Katherine Mccormick MD at 01/13/2024 12:01 PM EST Associated attestation - Katherine Mccormick MD - 01/13/2024 12:01 PM EST I saw and evaluated the patient on 11 Jan 2024. I have reviewed the resident/fellow physician note and agree. * Marilu Lee DO - 01/11/2024 7:26 AM EST PROGRESS NOTE - Cardiology [facility] [place] [address] Name: Russ Love Location: [facility] [place] H[facility]/A Date: 01/11/2024 Time: 7:02 PM SUBJECTIVE: Overnight patient had experienced ongoing issues with clots, improved with nursing flushing continued on CBI, hemoglobin relatively stable. This morning patient denies any acute complaints, remains chest pain-free, no significant runs of arrhythmia on telemetry. OBJECTIVE: Most Recent Vital Signs: BP: 108 mmHg/52 mmHg (01/11/24 1800) Pulse: 66 (01/11/24 1800) Resp: 21 (01/11/24 1800) Temp: 36.61 C (01/11/24 1600) Temp Summary: Temp Min: 36.3 C (97.3 F) Max: 37.1 C (98.8 F) SpO2: 100 % (01/11/24 1800) O2 flow rate: Supplemental O2 Delivery: Room Air, None (01/11/24 1900) Vital Signs Last 24 Hours: Systolic BP: Most Recent Systolic BP Av.4 mmHg Min: 87 mmHg Max: 124 mmHg Temperature: Most Recent Temperature Av.6 C Min: 36.28 C Max: 37.11 C Pulse: Pulse Av.8 Min: 61 Max: 78 Respirations: Resp Av Min: 12 Max: 26 SpO2: SpO2 Av.8 % Min: 96 % Max: 100 % Constitutional: Elderly male, in no acute distress, resting comfortably in bed HEENT: NC/AT, MMM, neck supple, PERRL, normal sclera CV: Regular rate and rhythm,+ systolic murmur Chest: normal respiratory effort, lungs clear to auscultation Abdomen: normal: soft, non-distended, non-tender to palpation, bowel sounds normal, no masses or organomegaly : CBI in place dark pink blood-tinged urine improved from previous exams Extremities: no clubbing, cyanosis, or edema, otherwise grossly normal, warm, and dry Skin: warm, dry, intact: Neuro: alert, oriented to person, place, and time, no focal deficits Psych: appropriate mood and affect LABS: Labs reviewed as indicated below: Lab results within last 7 days (see chart for full results) Units 01/11/24 1632 01/11/2444101/10/241956 HGB g/dL 9.6* 9.9* 10.4* HCT % 30.9* 30.5* 33.3* WBC K/uL 8.95 8.56 10.00 PLT K/uL 182 159 175 Lab results within last 7 days (see chart for full results) Units 01/11/24 0442 01/10/246 01/09/24 0436 SODIUM mmol/L 134* 134* 143 POTASSIUM mmol/L 4.1 4.1 3.9 CHLORIDE mmol/L 101 101 106 CO2 mmol/L 20* 21* 20* BUN mg/dL 18 18 13 CREATININE mg/dL 0.8 0.8 0.7 Lab results within last 7 days (see chart for full results) Units 01/09/24 0436 01/08/24 2244 Troponin T, High Sensitivity ng/L 56* 59* Lab results within last 7 days (see chart for full results) Units 01/10/24195601/09/24 0047 Lactate mmol/L 1.3 0.7 IMAGING: CTA TAVR 01/10/2024 IMPRESSION: Aortic valve is trileaflet with severe annular calcifications. Total annular calcium score of 2049.Small eccentric sub valvular calcification extending from non coronary cusp into the LVOT. Maximum annular distension measured on 15% R-R. Annulus measures 6.03 cm2. LVOT 4 mm below annular plane measures6.12 cm2. Minimal coronary artery height from the annulus approximately 16 mm on the left. Severe trivessel coronary artery atherosclerosis. Cardiomegaly with concentric hypertrophy of the left ventricular myocardium. No significant iliofemoral atherosclerosis. Minimal luminal diameter of 8.6 mm on the right. Mild tortuosity. 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 Infrarenal abdominal aortic aneurysm measuring up to 23 mm. IMPRESSION and PLAN: Principal Problem: NSTEMI (non-ST elevated myocardial infarction) (HCC) (POA: Unknown) Active Problems: History of tobacco use (POA: Yes) Overview: cigars Vitamin D deficiency (POA: Yes) Right thyroid nodule (POA: Yes) Aortic valve stenosis (POA: Yes) History of cardiac arrest (POA: Unknown) Hematuria, gross (POA: Unknown) Coronary artery disease involving [place] coronary artery of [place] heart (POA: Unknown) Encounter for dental examination (POA: Unknown) POA = Present On Admission VF arrest Multivessel coronary artery disease NSTEMI HFrEF (40%) aortic stenosis Acute, currently hemodynamically stable, ischemic versus valvular etiology in the setting of moderate at most obstructive coronary disease and known aortic stenosis. Undergoing multidisciplinary discussion regarding surgery versus complex PCI/TAVR. -continue amio gtt -telemetry monitoring -EP consulted for guidance on possible need for ICD placement -continue heparin gtt, ASA 81mg, atorvastatin 40mg qd - hold PRODUCTION HAND jardiance, lisinopril(HCTZ) - we will hold Coreg for today given low blood pressures yesterday and this morning, resume as able -continue to advance GDMT as able if tolerating - CTS consulted for consideration of AVR / CABGat this point we will likely be pursuing PCI plus TAVR after multidisciplinary discussions with CT surgery Hematuria Mild normocytic anemia likely in the setting of blood loss Hematuria present on admission. Continues to have passage of clots/hematuria after intermittent improvement s/p CBI. -Urology following, appreciate recommendations - monitor Hgb - CBI to continue while awaiting complex procedure Saturday -We will strictly monitor output, low threshold to reach out to Urology for concern for increasing clot or urinary retention - ditropan prn for bladder spasms while on celeste/CBI - will likely need follow up with urology outpatient for CT urogram and in office cystoscopy upon discharge Chronic conditions: Hypertension: Hold PRODUCTION HAND lisinopril-hydrochlorothiazide Type 2 diabetes: Hold PRODUCTION HAND metformin, glipizide, continue with low-dose sliding scale insulin Hold PRODUCTION HAND vitamin B12, vitamin-D Misc Diet - heart healthy, NPO after midnight Saturday Bowel Regimen- none Last BM: 01/11/2024 DVT/VTE prophylaxis - heparin drip Sleep- none Lines/drains/access - PIV, CBI Consultants following- Urology, CT surgery, EP Code Status - full code Disposition- 2+ days pending likely complex PCI Above patient was seen and discussed with Dr. Justo MD, attending physician Marilu Lee DO PGY3 Cosigned by Mayelin Kemp MD at 01/12/2024 8:45 AM EST Associated attestation - Mayelin Kemp MD - 01/12/2024 8:45 AM EST I saw and evaluated the patient 01/11/2024. I have reviewed the resident/fellow physician note and agree. I spent a total of 35 minutes coordinating, documenting, and providing care for this patient excluding time spent in the performance of separately billed services or time spent by another provider/QHP. Roby Kemp MD Interventional Cardiology [facility], [place], [place] 01/12/24 8:45 AM * Johnathan Brown MD - 01/10/2024 10:00 AM EST Images from the original note were not included. [facility] H771/A PROGRESS NOTE - Cardiovascular Medicine [address] [address] Name: Russ Love Location: [facility] [place] [facility] Date: 01/10/2024 Time: 6:07 AM Date of admission: 01/08/2024 Brief Summary: 83 y/o M w/PMHx of HTN, DLD, DM2, known RBBB and recently diagnosed LBBB moderate tosevere who presented from OSH after OOH VF cardiac arrest w/ROSC and c/f newly noted reduced EF on PRODUCTION HAND TTE. INTERVAL HISTORY: Overnight: [place] Pt seen and examined at bedside this morning He was eager to undergo procedure so he could eat and hear about next steps, otherwise doing well He has no concerns or complaints, specifically denied presyncope/lightheadedness/palpitations/chestpain, abdominal pain Objective Most Recent Vital Signs: BP: 119 mmHg/87 mmHg (01/10/24499) Pulse: 72 (01/10/24499) Resp: 17 (01/10/24499) Temp: 36.5 C (01/10/24399) Temp Summary: Temp Min: 36.4 C (97.5 F) Max: 37 C (98.6 F) SpO2: 99 % (01/10/24499) O2 flow rate: Supplemental O2 Delivery: Room Air, None (01/10/24499) Vital Signs Last 24 Hours: Systolic BP: Most Recent Systolic BP Av.4 mmHg Min: 119 mmHg Max: 153 mmHg Diastolic BP: Most Recent Diastolic BP Av.6 mmHg Min: 54 mmHg Max: 87 mmHg Temperature: Most Recent Temperature Av.7 C Min: 36.39 C Max: 37 C Pulse: Pulse Av.1 Min: 63 Max: 87 Respirations: Resp Av Min: 15 Max: 25 SpO2: SpO2 Av.5 % Min: 97 % Max: 100 % Urethral Catheter (Active) Number of days: 2 Peripheral Line Right Antecubital 18 Gauge (Active) Number of days: 2 Peripheral Line Left;Upper 18 Gauge (Active) Number of days: 1 Peripheral Line Left;Lower 18 Gauge (Active) Number of days: 2 Intake & Output Summary (Last 24 hours): Intake/Output Summary (Last 24 hours) at 01/10/2024 0607 Last data filed at 01/10/2024 0600 Gross per 24 hour Intake 942.58 ml Output 1340 ml Net -397.42 ml Net IO Since Admission: -369.35 mL [01/09/24 0603] Output by Drain (mL) 01/09/24 0700 - 01/09/24 1459 01/09/24 1500 - 01/09/24 2259 01/09/24 2300 - 01/10/24 0607 Range Total Requested LDAs do not have output data documented. Bowels: Height/Wt Weight Trend: Wt Readings from Last 7 Encounters: 01/10/24 84 kg (185 lb 3 oz) 12/20/23 86.2 kg (190 lb) 09/04/23 82.8 kg (182 lb 9.6 oz) 03/04/23 84.5 kg (186 lb 3.2 oz) 12/18/22 84.3 kg (185 lb 12.8 oz) 09/01/22 84.4 kg (186 lb) 06/15/22 83.9 kg (185 lb) Earliest Wt This Admission Weight: 84.6 kg (186 lb 8.2 oz) (01/08/24 2230) Most Recent Wt This Admission Weight: 84 kg (185 lb 3 oz) (01/10/24 0500) Weight change: -0.6 kg (-1 lb 5.2 oz) Body mass index is 26.2 kg/m. Physical Exam Constitutional: no acute distress, resting comfortably supine in bed Neuro: pupils equal and round, alert and attentive to conversation, hearing grossly intact to conversation, not fully oriented Head/face, ears, nose, throat: normocephalic, atraumatic, oral mucosa moist, partially edentulous Cardiovascular: (+) holosystolic murmur with diminished S2, regular rate and rhythm, well perfused distally w/DP/R +2 Pulm: breathing comfortably on room air, no accessory muscle use, crackles Abd: soft, non tender throughout, no suprapubic tenderness/firmness/distension : celeste catheter in place draining dark pink / blood tinged urine, improved from prior, CBI in place Extremities: no edema Surgical Site: None currently Laboratory Values: Blood Gas: No results in the last 7 days - inpatent use only Chemistry Panel: Lab results within last 7 days (see chart for full results) Units 01/10/2444501/09/2443501/08/244 01/07/24 0000 SODIUM mmol/L 134* 143 139 -- POTASSIUM mmol/L 4.1 3.9 4.1 3.6 CHLORIDE mmol/L 101 106 103 -- CO2 mmol/L 21* 20* 19* -- EGFR mL/min 86 >90 90 -- BUN mg/dL 18 13 14 -- CREATININE mg/dL 0.8 0.7 0.7 1.0 GLUCOSE mg/dL 139* 116 150* 197* CALCIUM mg/dL 8.8 8.5 8.5 -- Magnesium mg/dL 1.8 2.0 2.0 -- Phosphorus mg/dL 3.2 3.8 4.0 -- ANION GAP mmol/L 12 17* 17* -- Complete Blood Count: Lab results within last 7 days (see chart for full results) Units 01/10/2444501/09/2443501/08/244 01/07/24 0000 WBC K/uL 8.69 8.08 9.23 -- HGB g/dL 11.5* 12.1* 12.7* 13.3* HCT % 35.9* 37.9* 39.1* -- PLT K/uL 142 142 142 -- MCV fL 86.7 86.5 87.3 -- Cardiac Studies: Lab results within last 7 days (see chart for full results) Units 01/09/2443501/08/24 2244 Troponin T, High Sensitivity ng/L 56* 59* Coagulation Studies: Lab results within last 7 days (see chart for full results) Units 01/10/24 0446 01/09/24 1917 01/09/24 1105 01/09/24 0436 01/08/24 2244 Prothrombin Time seconds 13.6 -- -- 14.2 14.1 INR 1.0 -- -- 1.1 1.1 aPTT seconds -- -- -- -- 53* Heparin, Unfractionated IU/mL 0.34* 0.31* 0.41* 0.19* 0.20* Liver Function Panel: Lab results within last 7 days (see chart for full results) Units 01/08/24 2244 Triglycerides mg/dL 102 Infectious Studies: Lab results within last 7 days (see chart for full results) Units 01/09/24 0047 Lactate mmol/L 0.7 Cultures: reviewed. No results in the last 7 days - inpatent use only Recent Cultures (2 Weeks) No lab values to display. Radiographic Studies: No imaging results in the last 72 hours CARDIAC STUDIES: TTE 2016 Interpretation Summary The examination is adequate to evaluate the referral indication. Sinus rhythm with frequent ectopy was present during the echocardiogram. The LV wall thickness is mildly increased (concentric). The left ventricular wall motion is normal. The qualitative LV ejection fraction is 5559% (normal). The aortic valve has three leaflets. Moderate aortic valve sclerosis is present. Aortic stenosis is absent. There is no significant aortic regurgitation. There is no evidence of pulmonary hypertension. The aortic root and proximal ascending aorta are mildly enlarged. TTE 09/12/2022 Interpretation Summary The examination is adequate to evaluate the referral indication. There was normal sinus rhythm with ventricular trigeminy during the examination. The left ventricular cavity size is normal. The LV wall thickness is moderately increased (concentric). The septal motion is abnormal consistent with intrventricular conduction delay. The regional left ventricular wall motion is otherwise normal. The qualitative LV ejection fraction is 50-54% (normal). The aortic valve is moderately calcified. Moderate aortic valve stenosis is present. The left ventricular diastolic function is mildly abnormal (grade I). Mild mitral regurgitation is present. TTE 11/12/23 Interpretation Summary The qualitative LV ejection fraction is 40-44% [...] has declined, aortic valve systolic gradient unchanged. TTE 01/10/24 Pending Cardiac Cath 01/10/24 *R radial access Additional Findings: Coronary disease - hemodynamically significant LAD diffusely diseased, up to 50% stenosis in the mid LAD and up to 80% stenosis just distal to D3. Prox LCX 70% stenosis Mid RCA 70% stenosis Prior to Admission medications Medication Sig Last Dose Discont. Lisinopril-hydroCHLOROthiazide 10-12.5 MG Oral Tablet TAKE 1/2 TABLET BY MOUTH EVERY DAY Jardiance 25 MG Oral Tablet (Empagliflozin) TAKE 1 TABLET BY MOUTH ONCE DAILY glipiZIDE ER 5 MG Oral Tablet Extended Release 24 Hour (Glucotrol XL) TAKE 1 TABLET BY MOUTH EVERY MORNING metFORMIN HCl 1000 MG Oral Tablet (Glucophage) TAKE 1 TABLET BY MOUTH TWICE DAILY Atorvastatin Calcium 40 MG Oral Tablet (Lipitor) Take 1 Tablet by mouth in the morning. Vitamin C 125 MG Oral Tablet Chewable Take by mouth. OneTouch Ultra In Vitro Strip (Glucose Blood) use to test blood sugars once daily as directed traMADol HCl 50 MG Oral Tablet (Ultram) Take 1 Tablet by mouth every 6 hours as needed for Pain, Severe. Patient not taking: Reported on 12/20/2023 CYANOCOBALAMIN (VITAMIN B-12) 100 MCG Tablet Take 1 Tablet by mouth in the morning. VITAMIN D 1000 UNIT PO CAPS 1 capsule daily LANCETS MISC once daily ONE TOUCH ULTRA BONUS PACK KIT as directed Current Facility-Administered Medications Medication Dose Route Frequency Provider aspirin chew tab 81 mg 81 mg Oral Daily(AM) Geo Barroso MD atorvaSTATin (Lipitor) tab 40 mg 40 mg Oral Q 1700 Geo Barroso MD Carvedilol (Coreg) tab 3.125 mg 3.125 mg Oral BID (AM/PM meals) Johnathan Brown MD dextrose 50% inj 25 mL 25 mL IV Push PRN Geo Barroso MD dextrose 50% inj 50 mL 50 mL IV Push PRN Geo Barroso MD glucagon (Glucagen) inj 1 mg 1 mg Intramuscular PRN Geo Barroso MD Glucose (Glutose 15) 40 % gel 15 g of glucose 15 g of glucose Oral PRN Geo Barroso MD Glucose (Glutose 15) 40 % gel 30 g of glucose 30 g of glucose Oral PRN Geo Barroso MD glucose chew tab 16 g 16 g Oral PRN Geo Barroso MD insulin aspart (NovoLOG) inj Subcutaneous With meals Geo Barroso MD oxybutynin (Ditropan) tab 5 mg 5 mg Oral TID PRN Marilu Lee DO amiodarone (Cordarone) 900 mg in NSS 500 mL INFUSION 0.5 mg/min Central IV Continuous Call Pharmacyto Dispense Geo Barroso MD chlorHEXIDINE (Periogard) 0.12 % oral rinse 15 mL 15 mL Oral mucosal membrane BID (0800,1999) Geo Barroso MD hEParin 1000 UNIT/ML inj 1,300 Units 15 Units/kg IV Push PRN Geo Barroso MD hEParin 1000 UNIT/ML inj 2,600 Units 30 Units/kg IV Push PRN Geo Barroso MD hEParin 25,000 units in 250 mL (Xa-Cardiac) infusion 0-30 Units/kg/hr Intravenous Titrate Geo Barroso MD Oral Hygiene: Mouth Swab with dentifrice Oral Q4H Limited (00;04;12;16) Geo Barroso MD sodium chloride 0.9 % flush peripheral adriano 3 mL 3 mL IV Push Q8H Geo Barroso MD Assessment and Plan IMPRESSION : Principal Problem: NSTEMI (non-ST elevated myocardial infarction) ([facility]) Active Problems: History of tobacco use Vitamin D deficiency Right thyroid nodule Aortic valve stenosis History of cardiac arrest Hematuria, gross Coronary artery disease involving [place] coronary artery of [place] heart Resolved Problems: * No resolved hospital problems. * 83 y/o M w/PMHx as above who presented for out of hospital VF arrest w/ROSC no s/p intubation extubation at OSH before transfer. Also has history of moderate vs severe based on echo reports with newly reduced EF. Must r/o ischemic cardiomyopathy. VF arrest OOH s/p electrical cardioversion with ROSC. Transfer from OSH. ? Valve vs mild ischemic cardiomyopathy though today's cath report not entirely convincing given lack of total occlusion. -continue amio gtt -telemetry monitoring -EP consult for guidance on ICD vs other HFrEF (40%) Moderate possibly severe aortic stenosis Pt appears euvolemic - hold PRODUCTION HAND jardiance - hold PRODUCTION HAND lisinopril(HCTZ) for the same - inc coreg to 6.25 BID (new start this admission) Monitor HR / BP -continue to advance GDMT as able s/p cath -rpt TTE today pending Potential valve w/u to follow - CT TAVR today for possible PCI + TAVR if AVR/CABG deemed high risk Multivessel coronary artery disease NSTEMI Possible etiology of VF arrest. - continue heparin gtt, ASA 81mg, atorvastatin 40mg qd - CTS consult for consideration of AVR / CABG - dental consult for possible need for extraction and pre op evaluation Dental hygiene orders in Hematuria Mild normocytic anemia likely in the setting of blood loss Hematuria present on admission. Continues to have passage of clots/hematuria after intermittent improvement s/p CBI. - monitor Hgb qd - CBI overnight and attempted to clamp this am Continue on light flow and monitor output - ditropan prn for bladder spasms while on celeste/CBI - will need follow up with urology outpatient for CT urogram and in office cystoscopy upon discharge Chronic conditions: Hypertension: Hold PRODUCTION HAND lisinopril-hydrochlorothiazide Type 2 diabetes: Hold PRODUCTION HAND metformin, glipizide, continue with low-dose sliding scale insulin Hold PRODUCTION HAND vitamin B12, vitamin-D Diet: Orders Placed This Encounter Procedures Heart Healthy Diet : Sodium: 2 gm --- Fluid Restriction (ml): None VTE Prophylaxis: hEParin Bowel Regimen: senokot daily, prn miralax PT/OT: not consulted Family: To be updated at bedside later today, Mana. List of services consulted/following: UROLOGY CONSULT IP PHARMACOLOGIC VTE PROPHYLAXIS: hEParin CODE STATUS: Full Code EXPECTED DISCHARGE DATE: No information available Patient discussed with, will be seen and examined by attending physician, Mayelin Kemp MD It has been a privilege to participate in the care of this patient Johnathan Brown MD Resident, PGY1, [facility] This chart was completed in part utilizing [employer] Speech Voice Recognition Software. Grammatical errors, random word insertions, pronoun errors, and incomplete sentences are an occasional consequence of this system due to software limitations, ambient noise, and hardware issues. Any formal questions or concerns about the content, text, or information contained within the body of this dictation should be directly addressed to the provider for clarification. Cosigned by Mayelin Kemp MD at 01/10/2024 4:34 PM EST Associated attestation - Mayelin Kemp MD - 01/10/2024 4:34 PM EST I saw and evaluated the patient today. I have reviewed the resident physician note and agree. Coronary angiogram done today showed moderate disease in left circumflex and RCA. About 80% stenosis in distal LAD. We will obtain CTA TAVR. We will evaluate candidacy for transcatheter aortic valve replacement. Appreciate input from CT surgery and cardiac electrophysiology. I spent a total of 35 minutes coordinating, documenting, and providing care for this patient excluding time spent in the performance of separately billed services or time spent by another provider/QHP. Roby Kemp MD Interventional Cardiology [place] 01/10/24 4:34 PM * Clara Marrero MD - 01/10/2024 7:52 AM EST PROGRESS NOTE - Urology [facility] [place] [address] Name: Russ Love Location: [facility] [place] [id number] Date: 01/10/2024 Time: 7:52 AM SUBJECTIVE: Did not require irrigation or any issues with the Celeste last night. No other acute events overnight, afebrile and hemodynamically stable. All questions answered at bedside. PHYSICAL EXAMINATION: Most Recent Vital Signs: BP: 142 mmHg/73 mmHg (01/10/24 0700) Pulse: 66 (01/10/24 0700) Resp: 17 (01/10/24 0500) Temp: 36.5 C (01/10/24 0400) Temp Summary: Temp Min: 36.4 C (97.5 F) Max: 37 C (98.6 F) SpO2: 100 % (01/10/24 0700) O2 flow rate: Supplemental O2 Delivery: Room Air, None (01/10/24 0700) Intake/Output Summary (Last 24 hours) at 01/10/2024 0752 Last data filed at 01/10/2024 0700 Gross per 24 hour Intake 942.56 ml Output 1290 ml Net -347.44 ml Output by Drain (mL) 01/09/24 0700 - 01/09/24 1459 01/09/24 1500 - 01/09/24 2259 01/09/24 2300 - 01/10/24 0659 01/10/24 0700 - 01/10/24 0752 Range Total Requested LDAs do not have output data documented. Since admission: Net IO Since Admission: -748.47 mL [01/10/24 0752] General: awake, alert and responsive Heart:: Regular rate Chest: Normal WOB Abdomen: soft NT ND Extremities: no deformities : Celeste in, draining light pink urine, and CBI clamped LABS: CBC Lab Results Component Value Date/Time WBC 8.69 01/10/2024 04:46 AM WBC 5.93 10/21/2019 12:09 PM HGB 11.5 (L) 01/10/2024 04:46 AM HGB 13.3 (A) 01/07/2024 12:00 AM HGB 10.7 (L) 10/21/2019 12:09 PM HCT 35.9 (L) 01/10/2024 04:46 AM HCT 35.5 (L) 10/21/2019 12:09 PM PLT 142 01/10/2024 04:46 AM PLT 197 10/21/2019 12:09 PM BMP Lab Results Component Value Date/Time NA 134 (L) 01/10/2024 04:46 AM NA 139 10/21/2019 12:09 PM POTASSIUM 4.1 01/10/2024 04:46 AM POTASSIUM 3.6 01/07/2024 12:00 AM POTASSIUM 4.7 10/21/2019 12:09 PM CL 101 01/10/2024 04:46 AM CL 100 10/21/2019 12:09 PM CO2 21 (L) 01/10/2024 04:46 AM CO2 28 10/21/2019 12:09 PM BUN 18 01/10/2024 04:46 AM BUN 22 (H) 10/21/2019 12:09 PM CREAT 0.8 01/10/2024 04:46 AM CREAT 1.0 01/07/2024 12:00 AM CREAT 1.0 10/21/2019 12:09 PM Ca, Mg, Phos Lab Results Component Value Date/Time CA 8.8 01/10/2024 04:46 AM CA 9.6 10/21/2019 12:09 PM MG 1.8 01/10/2024 04:46 AM PHOSPHORUS 3.2 01/10/2024 04:46 AM CULTURES: No results found for: "CULTURE" IMAGING: No imaging results in the last 24 hours ASSESSMENT: 83 year old male w/ PMHx of HTN, DLD, DM2, known RBBB and recently diagnosed LBBB moderate to severe who presented from OSH after OOH VF cardiac arrest w/ROSC seen in consultation for gross hematuria manage conservatively with CBI PLAN: Patient planning for cardiac cath today, maintain celeste. CBI clamp trial. If hematuria darkens please reopen CBI Okay to continue heparin drip Patient will ultimately require outpatient evaluation for gross hematuria including CT urogram and office cystoscopy Patient to be discussed with Dr mccormick. Clara Marrero MD 01/10/2024 7:52 AM Cosigned by Katherine Mccormick MD at 01/10/2024 10:08 AM EST Associated attestation - Katherine Mccormick MD - 01/10/2024 10:08 AM EST I did not see the patient, but I have reviewed the resident/fellow physician documentation and was readily available on date of service. Pt in cardiac cath. documented in this encounter H&P Notes * Geo Barroso MD - 01/09/2024 1:49 AM EST HISTORY AND PHYSICAL EXAMINATION - Cardiology [address] [address] Name: Russ Love Location: [facility] [place] [id number] Date: 01/09/2024 Time: 1:49 AM PRESENTING PROBLEM: Status post ventricular fibrillation cardiac arrest, possible ACS (NSTEMI), moderate but possibly severe aortic stenosis HPI: Russ Love is a 83 year old male with significant history of hypertension, dyslipidemia, moderate possibly severe aortic stenosis, CHFrEF, DM type 2, previous tobacco use, vitamin-D deficiency, right thyroid nodule, GI bleed presents as a transfer from [facility] due to recent VFibcardiac arrest, possible ACS for ischemic evaluation. Patient reports that has been experiencing progressive exertional shortness of breath for the period of 1 year. He also reports occasional chest pains but was not able to characterize chest pains better. Denies syncope before. Endorse dizziness and lightheadedness mostly with changing position fromsitting to standing. Patient recently presented to [facility] due to recent VFib cardiac arrest. Patient does not have a good memory of the event. Per chart review on 01/06 patient went to hockey game with his grandson and collapsed. Was in usual state of health before, had diarrhea a week before the event.EMS arrived bone 5 minutes after collapse and started CPR. After 2 rounds of CPR, received 200 J shock with cardiac conversion to sinus rate. Brought to ID emergency department. Due to respiratory distress and poor mental status was intubated, started on propofol drip. Patient became hypotensive started vasopressors. Per chart review patient was recently diagnosed with new onset LBBB which was present on the EKG in ER. CT head unremarkable. CT PE without signs of PE but with possible pulmonary edema, nonspecific nodules bilaterally measuring up to [address] abdomen/pelvis with cholelithiasis but otherwise unremarkable. Right brachial arterial line and Celeste catheter were placed. Lactate cleared after resuscitation. ECHO with severe global hypokinesis with LVEF 15-20%, aortic valve severelycalcified with restricted leaflet mobility, low-flow aortic stenosis suspected of moderate to severe degree, mild mitral regurgitation. Patient was loaded with aspirin and started on heparin drip. On01/07 patient was extubated and eventually transferred to [facility] for further management. On arrival patient was is not in acute distress. Denies shortness of breath, chest pain, abdominal pain, flank pain, headache, blurry vision. Good oxygen saturation on room air. Stable hemodynamics. Brachial arterial line in place, [address], Celeste catheter with bloody urine in bag. Patient would like to be a FULL CODE during this admission. Patient's . Mana Love, is a surrogate decisionmaker in case patient is not able to make decisions for himself. Prior cardiac studies: TTE report (01/08/2024) [facility]: Sinus bradycardia with left bundle branch block configuration. Left ventricle is normal in size. There is moderate concentric left ventricular hypertrophy. Septal motion is consistent with conductionabnormality. There is severe global hypokinesis of the left ventricle. Left ventricle ejection fraction 15-20%. The aortic valve is severely calcified. Valve leaflet mobility is restricted. Low- flow aortic stenosis suspected of moderate to severe degree. There is mild mitral regurgitation. There istrace tricuspid regurgitation. CT cardiac calcium score 12/24/2023: 1. Aortic valve calcium is well above the threshold (2000) adjudicating a diagnosis of severe inthe context of low flow, low gradient stenosis. 2. Total coronary calcium score is 2850, more than 85 percent of healthy subjects of the same age, gender, and race/ethnicity who were free of clinical cardiovascular disease and treated diabetes in the Multi-Ethnic Study of Atherosclerosis (PETERSON). Cardiac stress test on 05/22/2004: Exercise capacity isbelow average. No symptoms were noted. Occasional PVCs were noted with stress. Abnormal horizontal/downsloping ST-depression of 1-2 mm is noted in inferior leads. ST-segments normalized within 1 minute of the recovery period. The stress EKG response was abnormal. The left ventricle is normal in systolic function, wall motion, wall thickness, cavity size and cavity shape. Qualitative LV ejection Fraction = 55-60%. The left ventricular wall motion is normal. The left ventricular ejection fraction increases normally with stress. PAST MEDICAL HISTORY: Past Medical History: Diagnosis Date Benign neoplasm of colon 09/10/06 adenomatous and hyperplastic tissue-repeat colonoscopy in 2 years DM type 2, goal A1C below 8.0 01/19/2013 HTN (hypertension) Syncope 05/12/04 PAST SURGICAL HISTORY: Past Surgical History: Procedure Laterality Date COLONOSCOPY W/ LESION REMOVAL, SNARE 09/10/06 adenomatous and hyperplastic tissue-repeat in 2 years COLONOSCOPY, DIAGNOSTIC (RECTUM) 12/08/2018 multiple colon polyps-Colonoscopy/ID COLONOSCOPY, DIAGNOSTIC (RECTUM) 12/08/2018 adenomatous polyp, diverticulosis / [facility] COLORECTAL CANCER SCREEN; COLON 11/01/10 diverticulosis EGD, FLEXIBLE, DIAGNOSTIC 12/04/2018 normal-EGD/[place] ORCHIOPEXY, INGUINAL APPROACH x two--oncve age 11, second time 1980s(bilateral) FAMILY HISTORY: Family History Problem Relation Name Age of Onset Heart Disorder Mother Diabetes Father Diabetes Sister Cancer Father bladder SOCIAL HISTORY: Social History Tobacco Use Smoking status: Former Types: Pipe Quit date: 07/12/2014 Years since quittin.5 Smokeless tobacco: Never Tobacco comments: smokes cigar occasionaly Vaping Use Vaping status: Never Used Substance Use Topics Alcohol use: Yes Comment: occ beer Drug use: No PRODUCTION HAND MEDICATIONS: Prior to admission medications have been reviewed. ALLERGIES: Patient has no known allergies. ROS: Pertinent ROS reviewed in HPI, otherwise negative. PHYSICAL EXAMINATION: Admission Vital Signs: BP: 135 mmHg/55 mmHg (01/09/24199) Pulse: 69 (01/09/24199) Resp: 21 (01/09/24199) Temp: Temp Summary: No data recorded SpO2: 98 % (01/09/24199) O2 flow rate: Supplemental O2 Delivery: Room Air, None (01/09/24199) Physical Exam: General: In no acute distress HEENT: Atraumatic, normocephalic, non-icteric sclera, moist mucous membranes Neurologic: Alert and oriented, no focal deficits, following commands, appropriate responses to questions, CN grossly intact, power equal and normal in UL and LL bilaterally Neck: No JVD, no submental, submandibular, or cervical lymphadenopathy CVS: RRR, normal S1 and S2, no murmurs, rubs, or gallops Respiratory: Normal effort, breath sounds normal and equal bilaterally, no crackles, no rales Abdominal: Soft, nondistended, nontender, normoactive bowel sounds Extremities: No edema, peripheral pulses are regular and equal Skin: Warm, dry, intact OBJECTIVE DATA: Labs: Trop 59 WBC 9.23 Hb 12.7 PLT 142 Na 139 K 4.1 Creat 0.7 Mag 2.0 Phos 4.0 Lactate 0.7 Imaging: Per radiologists read ECG: sinus rhythm, LBBB IMPRESSION AND PLAN: Russ Love is a 83 year old male with significant history of hypertension, dyslipidemia, moderate possibly severe aortic stenosis, CHFrEF, DM type 2, previous tobacco use, vitamin-D deficiency, right thyroid nodule, GI bleed presents as a transfer from [facility] due to recent VFibcardiac arrest, possible ACS for ischemic evaluation. Principal Problem: NSTEMI (non-ST elevated myocardial infarction) (HCC) (POA: Unknown) Active Problems: History of tobacco use (POA: Yes) Vitamin D deficiency (POA: Yes) Right thyroid nodule (POA: Yes) Aortic valve stenosis (POA: Yes) History of cardiac arrest (POA: Unknown) Resolved Problems: * No resolved hospital problems. * POA = Present On Admission History of VFib cardiac arrest New onset heart failure with reduced ejection fraction Possible NSTEMI Moderate possibly severe aortic stenosis Patient status post cardiac arrest probably in the setting acute coronary syndrome. History of progressively worsening exertional shortness of breath and occasional chest pain suggestive for possibleCAD or/and progression of known moderate aortic stenosis to severe. - continue heparin drip - started amiodarone bolus with consequent infusion in the setting of recent VFib arrest - continue aspirin 81 mg daily, atorvastatin 40 mg daily - hold PRODUCTION HAND Jardiance, lisinopril- hydrochlorothiazide in the setting of low normal blood pressure, patient we will eventually benefit from gradual introduction of GDMT which we will start as able - repeat TTE - consider coronary angiography, evaluation for TAVR Hematuria Mild normocytic anemia likely in the setting of blood loss - likely traumatic Celeste, keep Celeste catheter, consider Urology evaluation if no improvement - monitor for urinary retention in the setting of catheter clotting Chronic conditions: Hypertension: Hold PRODUCTION HAND lisinopril-hydrochlorothiazide Type 2 diabetes: Hold PRODUCTION HAND metformin, glipizide, continue with low-dose sliding scale insulin Hold PRODUCTION HAND vitamin B12, vitamin-D Diet: Heart healthy carbohydrate consistent VTE prophylaxis: On heparin drip CODE STATUS: Code Status: Full Code EXPECTED DISCHARGE DATE: 2 days or more This patient was discussed with filtration plant operator at the time of admission. Patient will be discussed with Dr. Miguel in the morning. DEAN Ulloa PGY-2 Cosigned by Bradly Miguel MD at 01/09/2024 12:53 PM EST Associated attestation - Bradly Miguel MD - 01/09/2024 12:53 PM EST I saw and evaluated the patient today. I have reviewed the resident/fellow physician note and agree. 1- OHCA, Vfib at Hockey game with prompt ROSC 2- Intubated, extubated at OSH 3- LF/LG Aortic Stenosis r/o Severe 4- Acute CHF Exacerbation w New CMP w LVEF 15-20% 5- LBBB 6- DM 7- HTN 8- HLD 9- Hx GI Bleed 2018, off ASA 10- Hx Pulmonary Nodules 11- Hx Right Thyroid nodule RECOMMENDATIONS: 83 YO WM with PMHx as above, with known AoS who had OHCA and now with new worsened CMP from 40-44% to 15-20%. He is awake and alert, O x2.5, BENIGNO w decreased S2 and (+) JVD. 1- NPO x meds p MN for Cardiac cath in am. Will discuss Aortic valve interrogation w Interv Cards as well to define severity. 2- Continue ASA/Lipitor/Coreg/IV Heparin and IV Amiodarone for now. Keep K 4-4.5 and Mg>2. IV diuresis aiming for daily negative fluid balance. Check electrolytes as he is diuresed and monitor renal function. Will need GDMT optimized post Cardiac cath results known. 3- Hematuria, monitor closely and may need Urology eval. 4- TAVR workup. 5- EP consult if no CAD noted on cath tomorrow for AICD eval. 6- Has hx GI bleed and was off ASA in past. Will need GI eval post cardiac eval completed. 7- Pt/OT consults. Discussed w patient, will update family. Follows with Dr Velasquez in [facility] Cardiology. documented in this encounter Procedure Notes * Coral Montero, - 01/13/2024 3:19 PM EST [facility] [address] [facility] [id number] CARDIAC [place] HAND BRIEF PROCEDURE NOTE Name: Russ Love Date: 01/13/2024 Time: 3:19 PM Location: CARDIAC LABS [facility] Date of Procedure: 01/13/2024 Pre-op Diagnosis: Acute coronary syndrome Post-op Diagnosis: Coronary artery disease Procedure: Coronary angiography, coronary intervention General Magistrate: Dr. Calvillo Rose Grower(s): Dr Aguilar and Dr. Montero Anesthesia: Monitored local anesthesia with sedation Additional Findings: Coronary disease - hemodynamically significant LAD diffusely disease up to 80% pLCX 70% stenosis Mid RCA 70% stenosis Intervention Summary: LAD lesion treated with 3 overlapping drug-eluting stent (2.5mm x 15mm [place]; 2.25 mm X 22 mm [place]; 2.0 mm X 18 mm [place], prox to distal). LCX lesion treated with 1 drug-eluting stent (2.0mm x 12mm [place]). RCA lesion treated with 2 overlapping drug-eluting stent (2.5 mm X 26 mm [place]; 2.5 mm x 26mm [place]). Final angiographic result with 0% residual stenosis, SUELLEN 3 flow, and no evidence of dissection or perforation. Intervention Procedure Details: A 6 camb[place]ian EBU 3.5 guide catheter was used to engage the LMCA. A Runthrough coronary guidewire was used to cross the lesion and advanced into the LAD. The lesion was pre-dilated with a 2.0 mm semi-compliant balloon. 3 drug eluting stents were then deployed across the entire lesion (Prox to distal: 2.5 mm X 15 [place], 2.25 mm X 22mm [place], 2.5 mm X 15 mm [place]). The stent was post dilated with a 2.5 mm non-compliant balloon. Final angiographic result with 0% residual stenosis, SUELLEN 3 flow, and no evidence of dissection or perforation. A 6 [place] EBU 3.5 guide catheter was used to engage the LMCA. A Runthrough coronary guidewire was used to cross the lesion and advanced into the LCX. The lesion was pre-dilated with a 2.0mm and 2.5 mm semi-compliant balloon. A 2.0 mm x 12 mm [place] drug-eluting stent was then deployed across the entire lesion. The stent was post dilated with a 2.5 mm non-compliant balloon. Excellent angiographic result with 0% residual stenosis, SUELLEN 3 flow, and no evidence of dissection or perforation. A 6 camb[place]ian JR4 guide catheter was used to engage the RCA. A Runthrough coronary guidewire was used to cross the lesion and advanced into the RCA. The lesion was pre-dilated with a 1.5mm, 2.0mm, and 2.5 mm semi-compliant balloon. Two drug- eluting stents were then deployed across the entire lesion (proximally to distally 2.5 mm X 26 mm [place] overlapping a 2.5 mm X 26 mm [place]). The stent was post dilated with a 2.5 mm and 2.75 mm non-compliant balloon. Final angiographic result with 0% residual stenosis, SUELLEN 3 flow, and no evidence of dissection or perforation. Access: Right radial Hemostasis: TR Band Complications: none Condition of patient: Good Post Sedation Evaluation: Cardiovascular status: acceptable, BP returned to baseline, and hemodynamically stable Level of consciousness: awake and alert Airway patency: patent Distress - NAD Hydration status - well hydrated Nausea/vomiting - not present Recommendations: -DAPT for minimum of 1 year -risk factor modification -remainder of care per inpatient cardiology service Cosigned by Nelsy Calvillo MD at 01/16/2024 8:47 AM EST Associated attestation - Nelsy Calvillo MD - 01/16/2024 8:47 AM EST A procedure was performed. I was present for entire procedure. I agree with the resident/fellow physician note. * Dilshad Tipton DO - 01/10/2024 9:56 AM EST [facility] [place] [address] [id number] CARDIAC HOGSHEAD HAND BRIEF PROCEDURE NOTE Name: Russ Love Date: 01/10/2024 Time: 9:56 AM Location: CARDIAC LABS [facility] Date of Procedure: 01/10/2024 Pre-op Diagnosis: Ventricular fibrillation , Severe Post-op Diagnosis: Coronary artery disease Procedure: Coronary angiography General Magistrate: Dr. Tipton Rose Grower(s): Dr Aguilar Anesthesia: Monitored local anesthesia with sedation Additional Findings: Coronary disease - hemodynamically significant LAD diffusely diseased, up to 50% stenosis in the mid LAD and up to 80% stenosis just distal to D3. Prox LCX 70% stenosis Mid RCA 70% stenosis Access: Right radial Hemostasis: TR Band Complications: none Condition of patient: Good Post Sedation Evaluation: Cardiovascular status: acceptable, BP returned to baseline, and hemodynamically stable Level of consciousness: awake and alert Airway patency: patent Distress - NAD Hydration status - well hydrated Nausea/vomiting - not present Recommendations: Consult cardiothoracic surgery for CABG + AVR evaluation. I have discussed the patient's management with the resident/fellow physician and agree with the note. Please refer to the documented findings and plan of care. This patient's visit today consisted ofa procedure. I was present for the entire procedure. Dilshad Tipton DO documented in this encounter Consult Notes * Salvador Amor, [facility] - 01/14/2024 9:55 AM ESTAssociated Order(s): PHARMACY CONSULT IP PHARMACY MEDICATION TEACHING CONSULT ANTIPLATELET THERAPY [address] [address] Name: Russ Love Location: [facility] [id number] Date: 01/14/2024 Time: 9:53 AM Requesting Service: Cardiology Med A Patient Active Problem List Diagnosis E.D. History of tobacco use DYSLIPIDEMIA, GOAL LDL BELOW 100 Vitamin D deficiency Right thyroid nodule HTN, goal below 140/90 Aortic valve sclerosis Aortic valve stenosis History of cardiac arrest NSTEMI (non-ST elevated myocardial infarction) ([facility]) Hematuria, gross Coronary artery disease involving [place] coronary artery of [place] heart Encounter for dental examination Acute blood loss anemia Medication covered during teaching session: Clopidogrel Indication for Antiplatelet Therapy: Stent Duration of Antiplatelet Therapy: 1 year Teaching points covered with patient and/or family: Route, Dosage Form and Schedule, Medication Intended Use/Action, Precautions to be Observed while using this Medication, Commonly Encountered Adverse Effects, Methods for Self- monitoring, Laboratory Monitoring, Potential Food and Drug Interactions, Therapeutic Contraindications, Prescription Refill Information, and Patient Specific Information Written documentation regarding all of the teaching points was provided to the patient and/or family members present. accepted patient education handout.in AVS Outpatient antiplatelet medication supply: Patient requires a prescription for this antiplatelet medication: Patient is agreeable to using [email or web address] to obtain the supply. The [employer] program and the primary team has been notified. Family member(s) present: no Patient agreed to allow visitors to attend teaching, if present. Assessment of teaching effectiveness: Fair. Pt is starting clopidogrel for new JULIET. I emphasized the importance of taking clopidogrel every day for prevention of in-stent thrombosis. We discussed signs of internal bleeding (black/red blood in stool/emesis, red urine) and to seek medical attention immediately if they occur. Patient aware to avoid NSAIDs (previously used APAP) and use only APAP as the OTC medication of choice. Patient denies herbal medication usage; takes vitamins B12 and D3 currently Patient denies alcohol usage. Patient with no further medication related questions. Has the patient expressed potential cost concerns? No Length of teaching: Brief (less than 15 minutes) Teaching completed according to pharmacy teaching standard 508. Salvador Amor, PharmD, BCCP, CACP, AACC * Gamal Gonzalez DMD - 01/10/2024 1:59 PM ESTAssociated Order(s): DENTISTRY CONSULT IP Bedside exam for any dental recommendations prior to Heart Valve Replacement surgery. Pt claims he needs his remaining teeth removed. Pt has retained roots UL x 2 and retained roots #20,21,22,28 Remaining teeth #23 to #27 are loose. No active acute dental infection observed. No swelling ; no suppuration. Oral Surgery and Dentistry have decided that if heart valve surgery is urgent and pt will not be discharged for at least 3 weeks (giving time for elective procedures prior to surgery) then they should be optimized medically and return for elective dental care when healed from valve replacement and have the elective dental procedures taken care of................ Pt does need future ext of all remaining teeth / roots after he heals from heart valve surgery. Treatment Plan Better home care ; brush after meals Rinse twice daily with peridex after brushing until he has exts accomplished Re-schedule with me for proper referral to OS after he heals from heart valve surgery Be careful of remaining martell teeth on intubation ; the teeth have potential be displaced on intubation if leveraged due to lack of bone support * Meena Diaz CRNP - 01/10/2024 10:58 AM ESTAssociated Order(s): CARDIAC SURGERY CONSULT IP CONSULT - CARDIAC SURGERY [facility] [id number] Name: Russ Love Location: [facility] H771/[id number] Date: 01/10/2024 Time: 10:58 AM REFERRING PHYSICIAN: @REF@ PCP: Elvis Flores MD RECYCLING SORTER: Eva Preference for return visit: [facility] REQUESTING SERVICE: Cardiology REASON FOR CONSULT: MVCAD on cardiac cath HPI: Russ Love is a 83 year old male who presents from [facility] after witnessed vfib arrest at [employer] game. EMS was on seen approx 5 minutes after pt collapsed and started CPR. Pt received one 200J shock and had ROSC with sinus rhythm. Pt does not recall event but reports feeling well o verall leading up to his collapse. Patient reports that he has been experiencing progressive exertional shortness of breath for the period of 1 year. He also reports occasional chest pains but was not able to characterize chest pains better. Denies syncope before his collapse. Endorses dizziness and lightheadedness mostly with changing position from sitting to standing. Following ROSC, pt was transported to [facility] where he was intubated due to poor mental status and respiratory distress. For a brief time he was on propofol and vasopressors but was able to be weaned off both and eventually extubated. Per chart review patient was recently diagnosed with new onset LBBBwhich was present on the EKG in ER. CT head unremarkable. CT PE without signs of PE but with possible pulmonary edema, nonspecific nodules bilaterally measuring up to [address] abdomen/pelvis with cholelithiasis but otherwise unremarkable. Right brachial arterial line and Celeste catheter were placed.Lactate cleared after resuscitation. ECHO with severe global hypokinesis with LVEF 15-20%, aortic va lve severely calcified with restricted leaflet mobility, low-flow aortic stenosis suspected of moderate to severe degree, mild mitral regurgitation. Patient was loaded with aspirin and started on heparin drip. Patient was transferred to [facility] for further cardiac work up and management. Cardiac cath to day revealed MVCAD as described below but per cardiology does have some potential PCI options available. Patient has history of chest pain/angina: No Patient has history of SOB/[place]: Yes, with strenuous activity such as carrying groceries Patient has syncope/presyncope: No Presentation associated with endocarditis/bacteremia: No Patient has PMH of:CHF, date of last exacerbation - 01/08/2024 HTN Hypercholesterolemia DM, date of most recent HgbA1C - 01/08/2024, result - 7.1 GI Bleed of unknown etiology Aortic Stenosis EF 15-20% on recent TTE [place] Heart Failure Classification: Class II (Mild) ALLERGIES: Patient has no known allergies. PAST MEDICAL HISTORY: Past Medical History: Diagnosis Date Benign neoplasm of colon 09/10/06 adenomatous and hyperplastic tissue-repeat colonoscopy in 2 years DM type 2, goal A1C below 8.0 01/19/2013 HTN (hypertension) Syncope 05/12/04 PAST SURGICAL HISTORY: Past Surgical History: Procedure Laterality Date COLONOSCOPY W/ LESION REMOVAL, SNARE 09/10/06 adenomatous and hyperplastic tissue-repeat in 2 years COLONOSCOPY, DIAGNOSTIC (RECTUM) 12/08/2018 multiple colon polyps-Colonoscopy/[place] COLONOSCOPY, DIAGNOSTIC (RECTUM) 12/08/2018 adenomatous polyp, diverticulosis / [facility] COLORECTAL CANCER SCREEN; COLON 11/01/10 diverticulosis EGD, FLEXIBLE, DIAGNOSTIC 12/04/2018 normal-EGD/[place] ORCHIOPEXY, INGUINAL APPROACH x two--oncve age 11, second time 1980s(bilateral) Hx of vein harvest or stripping?: no SOCIAL HISTORY: Social History Tobacco Use Smoking status: Former Types: Pipe Quit date: 07/12/2014 Years since quittin.5 Smokeless tobacco: Never Tobacco comments: smokes cigar occasionaly Vaping Use Vaping status: Never Used Substance Use Topics Alcohol use: Yes Comment: [facility] beer Drug use: No FAMILY HISTORY: Family History Problem Relation Name Age of Onset Heart Disorder Mother Diabetes Father Diabetes Sister Cancer Father bladder Family History of Premature CAD (Less than 55 year old male relative or less than 65 year old female relatives with history of angina, acute AL, sudden cardiac without obvious cause, CABG surgery, or PCI.): no REVIEW OF SYSTEMS: Constitutional: denies weight loss, denies fever, denies shaking chills Eyes: denies double vision , denies blurred vision , denies amaurosis fugax, denies cataracts, denies visual spots Ear, nose and throat: denies decreased hearing, denies trouble swallowing, denies epistaxis Dental: top plates, poor dentition Cardiac: see HPI Vascular: no claudication Respiratory: see HPI Gastrointestinal: Diet: regular, reports past GI bleed - no cause found, denies dysphagia, denies nausea, denies vomiting, denies abdominal pain, denies constipation, denies diarrhea, denies melena Genitourinary: denies dysuria, denies nocturia, denies hematuria, denies diminished stream, denies frequency Musculoskeletal: denies joint pain, denies joint deformities, denies chronic muscle pain Psychiatric: denies depression, denies anxiety, was never formerly hospitalized Skin: denies rash, denies non-healing ulcers, denies jaundice Neurologic: denies trouble speaking, denies amaurosis fugax, denies syncope, denies weakness, denies paralysis Endocrine: denies constant thirst, denies constant hunger, denies constant urinating Hematologic / Lymphatic: denies blood clotting problems, denies anemia, denies bruising Immunologic: denies trouble fighting infections, denies exposure to AIDS, denies exposure to hepatitis, denies exposure to TB CARDIOTHORACIC COMPLETE PHYSICAL EXAM: Most Recent Vital Signs: BP: 124 mmHg/72 mmHg (01/10/24 0900) Pulse: 69 (01/10/24 09) Resp: 18 (01/10/24 0800) Temp: 36.61 C (01/10/24 08) Temp Summary: Temp Min: 36.4 C (97.5 F) Max: 36.9 C (98.4 F) SpO2: 100 % (01/10/24 09) O2 flow rate: Supplemental O2 Delivery: Room Air, None (01/10/24 1015) PHYSICAL EXAM: General: no acute distress and alert and oriented Head: normocephalic, no masses, lesions, tenderness or abnormalities Eyes: conjunctiva are pink and non-injected, sclera clear Teeth: edentulous, dentures Neck: supple, no adenopathy, no bruits, thyroid normal size, non-tender, without nodularity, normaljugular venous pulse, no hepatojugular reflux Chest: normal shape and normal respiratory effort Lungs: lungs clear to auscultation Cardiac Exam: regular rate & rhythm Systolic murmur Pulses: The following pulses are normal: carotids, radials, and posterior tibials Abdomen: abdomen soft, non-tender, no abnormal masses, and no hepatosplenomegaly Extremities: no edema and no cyanosis Skin: skin color, texture, turgor are normal, no rashes or significant lesions Neuro: grossly normal exam Veins GSV appears adequate bilaterally LABS/STUDIES: Cardiac Cath Data 01/10/2024: Coronary disease - hemodynamically significant LAD diffusely diseased, up to 50% stenosis in the mid LAD and up to 80% stenosis just distal to D3. Prox LCX 70% stenosis Mid RCA 70% stenosis TTE 01/08/2024 [facility]: Sinus bradycardia with left bundle branch block configuration. Left ventricle is normal in size. There is moderate concentric left ventricular hypertrophy. Septal motion is consistent with conductionabnormality. There is severe global hypokinesis of the left ventricle. Left ventricle ejection fraction 15-20%. The aortic valve is severely calcified. Valve leaflet mobility is restricted. Low- flow aortic stenosis suspected of moderate to severe degree. There is mild mitral regurgitation. There istrace tricuspid regurgitation. Labs reviewed as indicated below: 01/10/24 04:46 SODIUM 134 (L) POTASSIUM 4.1 CHLORIDE 101 CO2 21 (L) BUN 18 CREATININE 0.8 EGFR 86 ANION GAP 12 GLUCOSE 139 (H) CALCIUM 8.8 Magnesium 1.8 Phosphorus 3.2 INR 1.0 Prothrombin Time 13.6 Heparin, Unfractionated 0.34 (H) CBC Rpt ! WBC 8.69 RBC 4.14 HGB 11.5 (L) HCT 35.9 (L) MCV 86.7 MCH 27.8 MCHC 32.0 RDW 13.8 PLT 142 MPV 9.7 Society of Thoracic Surgeons (STS) Risk Score: STS site rocedure Type: CABG + AVR Perioperative Outcome Estimate % Operative Mortality 8.87% Morbidity & Mortality 30.6% Stroke 2.62% Renal Failure 3.35% Reoperation 8.44% Prolonged Ventilation 21.6% Deep Sternal Wound Infection 0.192% Long Hospital Stay (>14 days) 29% Short Hospital Stay (<6 days)* 5.54% IMPRESSION: 83 yo with pmhx , HTN, HLD, DM2, previous smoker, GI bleed (unknown etiology), Vit-D deficiency s/p vfib arrest with ROSC now with MVCAD presents for evaluation for surgical revascularization vs PCI options PLAN: Per Dr Aguirre Cosigned by Aaron Aguirre MD at 01/10/2024 2:12 PM EST Associated attestation - Aaron Aguirre MD - 01/10/2024 2:12 PM EST I have reviewed the advanced practitioner's documentation on the date of service referenced in note, and I agree with, and take responsibility for the plan of care. I spent a total of 45 minutes coordinating, documenting, and providing care for this patient excluding time spent in the performance of separately billed services or time spent by another provider/QHP. 83 yo suffered cardiac arrest at a hockey game. He was followed for suspected low flow low gradientaortic stenosis. He did not have symptoms prior to this episode. He recovered and was transferred to [facility]. TTE reviewed- EF 20% with severe aortic stenosis based on calcification/poor mobility and velocity of 3 m/s. Coronary angiography performed today demonstrates severe stenosis of LAD, LCx and RCA. TAVR CTA pending. Medical history notable for diabetes and hypertension. IMPRESSION VF arrest in setting of low flow low gradient and multivessel coronary disease. Options discussed with Russ and his family include TAVR/PCI or surgical revascularization with valve replacement.His STS mortality risk is 9% for AVR/CAB which is probably an underestimate due to the severely reduced EF. Given his high surgical risk and age, I would favor TAVR/PCI if anatomy is favorable. He would like to proceed with TAVR/PCI if possible. Await TAVR CTA, then will have multidisciplinary discussion. * Katherine Mccormick MD - 01/09/2024 5:37 PM ESTAssociated Order(s): UROLOGY CONSULT IP CONSULT - Urology [facility] [address] Name: Russ Love Location: [facility] H771/[id number] Date: 01/09/2024 Time: 5:37 PM REQUESTING SERVICE: Cardiology Med A REASON FOR CONSULT: gross hematuria HPI: Russ Love is a 83 year old male admitted on 01/08/2024 s/p VFib cardiac arrest admitted for ischemic evaluation seen in consultation for gross hematuria. Patient's medical history is significant for hypertension, hyperlipidemia, severe aortic stenosis, type 2 diabetes, previous tobacco use No significant urologic history. The primary team noticed gross hematuria thus consulted Urology. Anticoagulants: On heparin drip No hx of LUTS, prior pelvic radiation, occupational exposure to petrochemicals, dyes, benzenes, to cyclophamide/ifosfamide, no significant family history including Obrien syndrome, nor chronic foreignbodies in the urinary tract (e.g. no indwelling ureteral stents or foleys). On my review, AF and HD stable. WBC 8 Hgb 12.1 Cr 0.7 No UA or abdominal imaging available for review Past Medical History: Diagnosis Date Benign neoplasm of colon 09/10/06 adenomatous and hyperplastic tissue-repeat colonoscopy in 2 years DM type 2, goal A1C below 8.0 01/19/2013 HTN (hypertension) Syncope 05/12/04 Past Surgical History: Procedure Laterality Date COLONOSCOPY W/ LESION REMOVAL, SNARE 09/10/06 adenomatous and hyperplastic tissue-repeat in 2 years COLONOSCOPY, DIAGNOSTIC (RECTUM) 12/08/2018 multiple colon polyps-[place] COLONOSCOPY, DIAGNOSTIC (RECTUM) 12/08/2018 adenomatous polyp, diverticulosis / [facility] COLORECTAL CANCER SCREEN; COLON 11/01/10 diverticulosis EGD, FLEXIBLE, DIAGNOSTIC 12/04/2018 normal-EGD/[place] ORCHIOPEXY, INGUINAL APPROACH x two--oncve age 11, second time 1980s(bilateral) Family History Problem Relation Name Age of Onset Heart Disorder Mother Diabetes Father Diabetes Sister Cancer Father bladder Social History Socioeconomic History Marital status: Spouse name: Mana Number of children: 5 Years of education: 12 Highest education level: Not on file Occupational History 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; 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 Employer: [employer] Tobacco Use Smoking status: Former Types: Pipe Quit date: 07/12/2014 Years since quittin.5 Smokeless tobacco: Never Tobacco comments: smokes cigar occasionaly Vaping Use Vaping status: Never Used Substance and Sexual Activity Alcohol use: Yes Comment: occ beer Drug use: No Sexual activity: Not on file Other Topics Concern Not on file 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 - [place] Social Needs Financial Resource Strain: Not on file Food Insecurity: No Food Insecurity (08/03/2021) Hunger Vital Sign Worried About Running Out of Food in the Last Year: Never true Ran Out of Food in the Last Year: Never true Transportation Needs: Not on file Social Connections: Not on file Housing Stability: Not on file Current Facility-Administered Medications Medication Dose Route Frequency Provider aspirin chew tab 81 mg 81 mg Oral Daily(AM) Geo Barroso MD atorvaSTATin (Lipitor) tab 40 mg 40 mg Oral Q 1700 Geo Barroso MD Carvedilol (Coreg) tab 3.125 mg 3.125 mg Oral BID (AM/PM meals) Johnathan Brown MD dextrose 50% inj 25 mL 25 mL IV Push PRN Geo Barroso MD dextrose 50% inj 50 mL 50 mL IV Push PRN Geo Barroso MD glucagon (Glucagen) inj 1 mg 1 mg Intramuscular PRN Geo Barroso MD Glucose (Glutose 15) 40 % gel 15 g of glucose 15 g of glucose Oral PRN Geo Barroso MD Glucose (Glutose 15) 40 % gel 30 g of glucose 30 g of glucose Oral PRN Geo Barroso MD glucose chew tab 16 g 16 g Oral PRN Geo Barroso MD insulin aspart (NovoLOG) inj Subcutaneous With meals Geo Barroso MD amiodarone (Cordarone) 900 mg in NSS 500 mL INFUSION 0.5 mg/min Central IV Continuous Call Pharmacyto Dispense Geo Barroso MD chlorHEXIDINE (Periogard) 0.12 % oral rinse 15 mL 15 mL Oral mucosal membrane BID (08,1999) Geo Barroso MD hEParin 1000 UNIT/ML inj 1,300 Units 15 Units/kg IV Push PRN Geo Barroso MD hEParin 1000 UNIT/ML inj 2,600 Units 30 Units/kg IV Push PRN Geo Barroso MD hEParin 25,000 units in 250 mL (Xa-Cardiac) infusion 0-30 Units/kg/hr Intravenous Titrate Geo Barroso MD Oral Hygiene: Mouth Swab with dentifrice Oral Q4H Limited (00;04;12;16) Geo Barroso MD sodium chloride 0.9 % flush peripheral adriano 3 mL 3 mL IV Push Q8H Geo Barroso MD Review of patient's allergies indicates: No Known Allergies REVIEW OF SYSTEMS: See HPI for pertinent positive and negative ROS. Otherwise 10 point ROS review conducted. GEN: no weight loss, fever or chills, or significant fatigue HEENT: no changes in vision or hearing, no sinus problems, no sore throat or hoarseness RESPIRATORY: no cough, wheezing, change in breathing CARDIOVASCULAR: no exertional chest pain, dyspnea, palpitations GI: see HPI : see HPI MUSCULOSKELETAL: no history of arthritis; other joint problems PSYCHIATRIC: no significant anxiety or depression, unchanged sleep pattern HEME: no bleeding or clotting tendency NEURO: no significant headaches, no seizures , no tremors SKIN: no new rashes, no itching ENDOCRINE: No changes to temp sensitivity PHYSICAL EXAMINATION: BP 124/61 | Pulse 67 | Temp 36.9 C (98.4 F) (Tympanic) | Resp 21 | Ht 1.791 m (5' 10.5") | Wt 84.6 kg (186 lb 8.2 oz) | SpO2 99% | BMI 26.38 kg/m | BSA 2.05 m Constitutional: Alert, no acute distress Skin: No obvious rashes or lesions Eyes: No scleral icterus ENT/Mouth: No tracheal deviation Cardiovascular: Normal rate, regular rhythm Respiratory: Non-labored breathing Gastrointestinal: Abdomen is soft, non-tender, non-distended Neurological: No gross focal deficits Psychiatric: Normal mood and affect Genitourinary: Uncircumcised penis with terminal meatus. Testicles descended bilaterally and normalby palpation. Celeste in place draining bloody urine LABS: CBC Lab Results Component Value Date/Time WBC 8.08 01/09/2024 04:36 AM WBC 5.93 10/21/2019 12:09 PM HGB 12.1 (L) 01/09/2024 04:36 AM HGB 13.3 (A) 01/07/2024 12:00 AM HGB 10.7 (L) 10/21/2019 12:09 PM HCT 37.9 (L) 01/09/2024 04:36 AM HCT 35.5 (L) 10/21/2019 12:09 PM PLT 142 01/09/2024 04:36 AM PLT 197 10/21/2019 12:09 PM BMP Lab Results Component Value Date/Time NA 143 01/09/2024 04:36 AM NA 139 10/21/2019 12:09 PM POTASSIUM 3.9 01/09/2024 04:36 AM POTASSIUM 3.6 01/07/2024 12:00 AM POTASSIUM 4.7 10/21/2019 12:09 PM CL 106 01/09/2024 04:36 AM CL 100 10/21/2019 12:09 PM CO2 20 (L) 01/09/2024 04:36 AM CO2 28 10/21/2019 12:09 PM BUN 13 01/09/2024 04:36 AM BUN 22 (H) 10/21/2019 12:09 PM CREAT 0.7 01/09/2024 04:36 AM CREAT 1.0 01/07/2024 12:00 AM CREAT 1.0 10/21/2019 12:09 PM Ca, Mg, Phos Lab Results Component Value Date/Time CA 8.5 01/09/2024 04:36 AM CA 9.6 10/21/2019 12:09 PM MG 2.0 01/09/2024 04:36 AM PHOSPHORUS 3.8 01/09/2024 04:36 AM Hepatic Function Panel Lab Results Component Value Date/Time TBIL 0.5 08/06/2022 08:12 AM TBIL 0.4 10/21/2019 12:09 PM ALKP 65 08/06/2022 08:12 AM ALKP 54 10/21/2019 12:09 PM AST 15 08/06/2022 08:12 AM AST 20 10/21/2019 12:09 PM ALT 17 08/06/2022 08:12 AM ALT 18 10/21/2019 12:09 PM PROT 6.9 08/06/2022 08:12 AM PROT 7.3 10/21/2019 12:09 PM Coags Lab Results Component Value Date/Time INR 1.1 01/09/2024 04:36 AM Lactic acid Lab Results Component Value Date/Time LAC 0.7 01/09/2024 12:47 AM Arterial Blood Gas No results found for: "PH", "PCO2", "PO2", "HCO3" URINALYSIS CULTURES: Recent Cultures (2 Weeks) No lab values to display. IMAGING: No orders to display IMPRESSION: 83 year old male seen in consultation for gross hematuria Bedside Urology Procedural Note: Previously placed Celeste catheter was removed by deflating the balloon. A 22Fr 3- way hematuria catheter was placed in a standard sterile fashion with ease and I manually irrigated with 500mL of salineto clear approximately 15cc of clots. CBI started and running full bore output was light pink to clear. RECOMMENDATIONS: - okay to continue heparin drip - Ditropan 5mg TID PRN for bothersome bladder spasms given large caliber catheter and irrigant - Titrate rate of continuous bladder irrigation (CBI) to keep urine clear and light pink - RN can flush and manually irrigate celeste PRN for clots - If concerned for clot retention, clamp CBI and evaluate with bladder scan. Please page us if concern about catheter occlusion - Trend CBC and transfuse as indicated - Urojet/Glydojet can be ordered PRN celeste discomfort - Bowel regimen recommended to prevent straining - Rest of care per primary team, Urology will continue to follow. Patient will ultimately require outpatient evaluation for gross hematuria including CT urogram and office cystoscopy Patient to be discussed with Dr. Anny Kwan MD 01/09/2024 5:37 PM Attending Attestation: I have discussed the patient's management with the medical trainee and agree with the note. Please refer to the documented findings and plan of care. The patient's bedside service on 09 Jan 2024 (this is a late entry) consisted of an evaluation. I was present and confirmed the findings of the history and exam. I was not present for procedure. documented in this encounter Nursing Notes * Abisai Acevedo, ROGERIO - 01/16/2024 2:56 PM EST Russ Love is an 83 y.o.m. admitted with aortic stenosis, cardiac arrest w/- Fib. He is A&Ox4, MAEW, able to follow along with discharge instructions. Knows all his meds, their use and dosing schedule. Reviewed new meds (amiodo=arone, Low Dose Aspirin, Plavix, Entresto, Toprol XL, Nitroglycerin, Spironolactone, Flomax), their use and dosing schedule. New meds were delivered to the bedside prior to discharge. Also reviewed S/S to notify the hospital provider of should they occur. He stateshe understands, and will do so. His IV site was removed. He has requested a w/c to travel to the front of the hospital for discharge. His family will be transporting him home. Call gerald is within reach. * Rebeca Shah RN - 01/10/2024 7:01 PM EST I agree with the assessment and charting by Yasmeen Rothman RN from [id number] on 01/09. * Byron Mcdaniels RN - 01/09/2024 8:09 PM EST Issue with CBI found at start of shift, connections were not secure, copious amounts of bloody fluid was spilled on to the floor/bed and leaked all over the patient. No way to measure correct output/net output. CBI restarted at 1999. * Antonieta Curtis RN - 01/09/2024 12:00 AM EST Dual Licensed Skin Assessment completed by [place]. The patient is/has a N/A Skin Breakdown (includes non blanchable erythema): No documented in this encounter Miscellaneous Notes * Pt Handout (on AVS) - Christopher Disla RN - 01/16/2024 2:05 PM EST [id number] Heart Failure What is heart failure? The heart is a muscle that pumps oxygen-rich blood to all parts of the body. When you have heart failure, the heart can?t pump as well as it should. Or the heart muscle can?t relax and fill the pumping chamber with blood. Blood and fluid may back up into the lungs. This causes heart failure. And itcauses pulmonary edema. Some parts of the body also don?t get enough oxygen-rich blood. This means they can't work well. These problems lead to the symptoms of heart failure. What causes heart failure? Heart failure may result from: Heart valve disease High blood pressure Active infections of the heart valves or heart muscle, such as endocarditis A past heart attack Coronary artery disease Disease of the heart muscle (cardiomyopathy) Heart problems that are present at (congenital heart defects) Heart rhythm problems (arrhythmias) Long-term (chronic) lung disease and pulmonary embolism A reaction to medicines, such as those used for chemotherapy Anemia and too much blood loss Thyroid disorders Diabetes Alcohol and drug abuse Certain viral infections What are the symptoms of heart failure? The most common symptoms of heart failure are: Shortness of breath while resting, exercising, or lying flat Weight gain from water retention Visible swelling of the legs, ankles, and feet from fluid buildup. Sometimes the belly (abdomen)may swell. Severe tiredness (fatigue) and weakness Loss of appetite, nausea, and belly pain Cough that doesn?t go away. It can cause blood-tinged or frothy sputum. The severity of the condition and symptoms depends on how much of the heart's pumping ability has been affected. The first step in managing heart failure symptoms is knowing your baselines or what?s normal for you. How much do you weigh? Are you gaining weight but eating the same amount? How much can you do before you feel short of breath? Do your socks and shoes fit comfortably? Knowing what?s normal for you will help you see when symptoms are getting worse. Once you know your baselines, watchfor changes daily. The symptoms of heart failure may look like other health problems. Always see your healthcare provider for a diagnosis. How is heart failure diagnosed? Your healthcare provider will ask about your health history. They will give you a physical exam. You may need tests, such as: Chest X-ray. This test makes images of internal tissues, bones, and organs on film. This test shows the size and shape of your heart. Fluid in the lungs will also show up on X-ray. Echocardiogram. This test is also called an echo. It uses sound waves to assess the motion of the heart?s chambers and valves. The sound waves make an image on the screen as an ultrasound transducer is passed over the heart. This shows how well the heart pumps and relaxes. It also shows the thickness of the heart [place], and if the heart is enlarged. It can assess heart valve function and bloodflow as well. It is one of the most useful tests because it shows a lot of information about the heart?s function. And it can help guide treatment choices. Electrocardiogram. This test records the electrical activity of the heart. It shows abnormal rhythms. It can sometimes find heart muscle damage. BNP testing. B-type natriuretic peptide (BNP) is a hormone released from the ventricles that occurs with heart failure. BNP levels are useful in the quick assessment of heart failure. The higher the BNP levels, the worse the heart failure. BNP is measured from a blood sample. Cardiac MRI. This test uses a magnetic field to make images of the heart and its nearby tissues.It can assess how the heart muscle and valves are working. How is heart failure treated? The cause of heart failure will guide the treatment plan. If heart failure is caused by a valve problem or coronary heart disease, then you may need a procedure. This may be a percutaneous coronary intervention. Or it may be surgery. If heart failure is caused by a problem, such as anemia or an infe ction, you may need medicine to treat this problem. Some causes of heart failure are reversible or short-term, such as an acute infection. For many causes of heart failure there is no cure. But many forms of treatment can help with symptoms. They are listed below. Lifestyle changes These healthy habits may help with heart failure: Controlling blood pressure Controlling blood sugar if you have diabetes Quitting smoking Maintaining a healthy weight. Losing weight, if needed Regular exercise Limiting salt and fat in your diet Not drinking alcohol or using illicit drugs Getting enough rest Reducing stress Other important lifestyle habits include getting vaccines, such as for the flu and pneumococcal pneumonia. If you have sleep problems, getting a sleep study can help find out what?s causing them. You may need to wear a C-PAP mask while you sleep. This will make sure you get enough oxygen. Too little oxygen can put stress on your heart. Medicines Many types of medicines are available for heart failure. They include: Angiotensin converting enzyme (EUNICE) inhibitors. These lower the pressure inside the blood vessels. This reduces the pressure that the heart has to pump against. They can also help the heart have better pumping ability over time. Angiotensin receptor blockers (ARB). Some people get a cough and need to stop taking EUNICE inhibitors. If that happens, an ARB may work for you. These help relax blood vessels and reduce stress on the heart. Angiotensin receptor-neprilysin inhibitors (ARNIs). This medicine combines an ARB and a neprilysin inhibitor. This can help the heart as noted above. And it can promote salt and water loss. This medicine is preferred over EUNICE inhibitors and ARBs alone. Diuretics. These reduce the amount of fluid in the body. They are among the most important medicines in helping control fluid buildup in the body. Beta-blockers. These reduce the heart?s tendency to beat faster. They can also help the heart pump better over time. Aldosterone blockers. These block the effects of the hormone aldosterone. This hormone causes sodium and water retention. Vasodilators. These include hydralazine and nitroglycerin. These widen (dilate) the blood vessels. They reduce the workload on the heart. Statins or PCSK9 inhibitors. These lower the amount of bad cholesterol in your blood. They are not used to treat heart failure. But you may take one if you have high cholesterol. Or you may take one if you have had a past heart attack and are at risk for heart failure. People who have inheritedforms of high cholesterol (familial hypercholesterolemia) may get help from PCSK9 inhibitors. Thesemedicines lower cholesterol. Sodium-glucose cotransporter-2 (SGLT2) inhibitors. They block your kidneys from reabsorbing sugar from the blood. This helps your body get rid of extra salt and water and so lowers your blood pressure. Lowering your blood pressure eases the strain on your heart. Digitalis. This medicine helps the heart beat stronger. It may help with controlling heart rate if there is an abnormal heart rhythm. Antiarrhythmics. These help keep normal heart rhythm. Sinus node I-f channel kaity. This may be used to lower your heart rate. It may result in lessstress on your heart. This medicine is reserved for people who still have high resting heart rates despite use of beta blockers. Heart procedures These include opening blocked arteries in the heart. This brings back blood flow to the heart muscle. It helps the ventricles squeeze as they should. The procedure can be done in the cardiac catheterization lab. It uses balloons to push plaque and blood clots out of the artery. It also uses stents to keep the artery open. This can also be done by bypassing blockages during surgery (coronary artery bypass surgery). Heart valve repair or replacement In some cases, medicines can?t help heart failure caused by heart valves that are narrowed (stenosed) or leak (regurgitant). The heart valve can be repaired or replaced. This can be done as an open-heart procedure. Or it can be done by going through a small tube (catheter) that is put into an artery or vein. Pacemaker If your heart failure has also damaged your heart?s electrical wiring system, a pacemaker can be implanted. This is done to restore normal heart rate and regularity. A cardiac resynchronizing pacemaker is used when one of the natural heart wires is damaged. This is often the wire located in the left ventricle. These pacemakers use implanted left and right sided wires to restore normal timing of the heart contraction in order to improve heart function. ICD (implantable cardioverter defibrillator) When the heart muscle is damaged, dangerous heart circuits can form in the heart muscle. This leadsto heart rhythms that can cause . An ICD is implanted in the body to sense and treat these cardiac arrest rhythms. It does this by overdrive pacing the heart rhythm. Or it sends an energy shock to the heart. VAD (ventricular assist device) This device is put in the chest during a surgery. It connects to an outside motor. The motor helps pump blood from the heart to the rest of the body. VADs can allow people with advanced heart failureto improve their overall symptoms and to walk more. This can be used as a long-term treatment. Or it can be used while someone waits for a donor heart for a transplant. Heart transplant In some cases, the diseased heart must be replaced with a healthy one from a donor. Talk with your healthcare providers about the risks, benefits, and possible side effects of all treatments. What are possible complications of heart failure? Complications of heart failure include: Fluid buildup in the lungs (pulmonary edema) Kidney and liver failure Stroke Abnormal heart rhythms How daily issues affect your health Many things in your daily life impact your health. This can include transportation, money problems,housing, access to food, and child support officer. If you can?t get to medical appointments, you may not receive the care you need. When money is tight, it may be difficult to pay for medicines. And living farfrom a grocery store can make it hard to buy healthy food. If you have concerns in any of these or other areas, talk with your healthcare team. They may know of local resources to assist you. Or they may have a staff person who can help. Patel points about heart failure When you have heart failure, the heart can?t pump as well as it should. Heart failure may result from health problems that affect the heart, such as high blood pressure, coronary artery disease, and heart attack. Some common symptoms are shortness of breath, weight gain, and visible swelling of the legs and ankles. A chest X-ray can help diagnose lung congestion. Treatment varies based on the cause of heart failure. Most people are advised to make certain lifestyle changes and to take certain medicines, often for life. Procedures, such as coronary intervention and surgery, may be needed. Next steps Tips to help you get the most from a visit to your healthcare provider: Know the reason for your visit and what you want to happen. Before your visit, write down questions you want answered. Bring someone with you to help you ask questions and remember what your provider tells you. At the visit, write down the name of a new diagnosis, and any new medicines, treatments, or tests. Also write down any new instructions your provider gives you. Know why a new medicine or treatment is prescribed, and how it will help you. Also know what theside effects are. Ask if your condition can be treated in other ways. Know why a test or procedure is recommended and what the results could mean. Know what to expect if you do not take the medicine or have the test or procedure. If you have a follow-up appointment, write down the date, time, and purpose for that visit. Know how you can contact your healthcare provider if you have questions, especially after officehours or on weekends. Last Reviewed Date: 2022 00:00:00 [id number] [employer] All rights reserved. This information is not intended as a substitute for professional medical care. Always follow your healthcare professional's instructions. * Ancillary Progress Note - Laverne Freed RDN - 01/16/2024 1:11 PM EST CLINICAL NUTRITION ADULT RISK ASSESSMENT [address] [id number] Name: Russ Love Location: [facility] [place] [id number] Date: 01/16/2024 Time: 1:11 PM How patient was identified (select 2): Medical record number and date Russ Love is a 83 year old male being assessed for clinical nutrition risk related to extended LOS Primary diagnosis: due to recent VFib cardiac arrest, possible ACS for ischemic evaluation. Other pertinent information: Patient reported that he has an appetite and able to eat well. Has been consuming 75-100% intake. He does follow low sodium diet. Not consuming any oral supplements. No chewing/swallowing difficulty reported. Denies nausea, vomiting and abdominal discomfort. Last BM wasyesterday. Possible plan for TAVR as outpatient per EHR. Anthropometrics Measurements Admission weight (for dietitians): 84.6 kg (186 lb 8.2 oz) Height: 179.1 cm (5' 10.5") (01/08/242229) Weight: 80.3 kg (177 lb 1.6 oz) (01/16/24621) BMI: 26.37 (01/08/242229) Usual Body Weight or EDW for Dialysis Patients: 84 -86 kg per EHR Diet: Other: Heart Healthy Previously followed diet: Low sodium Food Allergies/Intolerances: None Pertinent medications/vitamins/minerals/supplements: Jardiance, novolog, miralax, senna, aldactone, RISK FACTORS: Adult Energy Intake: No significant decrease Interpretation of Weight Change: No recent/significant weight change - 5 kg (5%) wt loss noted since admission. Was on low dose diuretics. Skin: Intact NUTRITION RISK CATEGORY: Nutrition Risk Category: Low/Moderate (0-1 factors) Clinical Nutrition Recommendations: Diet: Continue current nutrition plan NUTRITION INTERVENTION/PLAN: Continue current care plan Will follow and adjust nutritional plan as medical condition requires. Please contact for change(s)in patient condition requiring earlier intervention. Laverne Freed MS, RDN, LDN Clinical Dietitian [facility] [place] text * Pt Handout (on AVS) - Marilu Lee DO - 01/16/2024 11:39 AM EST Images from the original note were not included. [id number] Understanding the Mediterranean Diet A Mediterranean-style diet is a healthy way of eating, not a specific diet to lose weight. It includes a lot of foods from plants, such as vegetables, fruits, beans, nuts, seeds, whole grains, and olive oil. It also includes dairy foods, eggs, fish, and poultry, but in smaller amounts. Fish and poultry are eaten more often than red meat. This diet limits sugar, highly processed foods, refined carbohydrates, and processed meats. Many studies over time have shown health benefits to eating this way. It focuses on making meals with fresh foods that are plant-based and minimally processed. This plan of eating is inspired by how people eat in countries around the [place] Sea. They include [place], [place], [place], [place], [place], and [place]. But it uses foods you can buy in almost any grocery store. Health benefits of a Mediterranean diet This diet is high in fiber, lean protein, and healthy oils. It?s low in saturated fats and sugar. The diet has been shown to help prevent or manage: Depression Diabetes Heart disease High blood pressure Parkinson disease Alzheimer disease Certain cancers What do I eat on a Mediterranean diet? Plan each meal around vegetables and whole grains. Use olive oil. Add nuts and legumes. Include fish or lean protein. Foods to focus your meals around include: Food type What to eat Vegetables This includes leafy greens, tomatoes, squash, peppers, cucumbers, green beans, eggplant,avocados, potatoes, and olives. You can use fresh or frozen vegetables. Fruits This includes apples, raspberries, strawberries, grapes, citrus fruit, such as oranges and grapefruit, stone fruit, such as apricots and peaches, plus figs, dates, and melon. Whole grains This includes brown rice, whole oats, quinoa, millet, whole grain bread, whole-wheat pasta, and crackers made with whole grains. Beans and legumes These include lentils, chickpeas, and beans, such as rogers, claudio, kidney, and black beans. Peanuts are also legumes. Nuts and seeds These include walnuts, almonds, sunflower seeds, cashews, [place] nuts, and pecans. Healthy oil [place] oil is the most common oil in the Mediterranean diet. But other healthy oils are avocado, canola, sunflower, safflower, and corn oils. Herbs and spices Season food with oregano, pepper, michelle, tarragon, thyme, basil, cinnamon, and cumin. Foods to limit or eat in smaller amounts You can add these foods in smaller amounts: Dairy foods, such as cheese, yogurt, and butter Poultry, such as chicken and duck Eggs Fish and seafood such as salmon, trout, mackerel, haroldo, tuna, sardines, anchovies, and whitefish. It also includes shellfish such as shrimp, oysters, mussels, and clams. The [employer] [employer] advises to limit or have no alcohol. Wine may be OK for certain people in low or moderate amounts, with meals. Talk with your provider about your situation and risk. Occasional treats Limit these foods in your weekly eating plan: Red meats, such as beef, soto, and pork Processed meats Refined grains, such as white rice and foods made with white flour Sugary treats, such as chocolate, candy, or pastries Adding lots of flavor You can liven up fresh foods with many kinds of flavor. Try these sauces, dips, and seasonings: Hummus Marinara sauce Salsa Vinaigrette dressing Tips for eating out At restaurants: Skip fried foods. These have a lot of saturated fat. Look for fish dishes that are cooked without cream or butter. Pick salads that have nuts and seeds. Choose vegetarian choices that don?t have too much cheese. Last Reviewed Date: 2021 00:00:00 [id number] [employer] All rights reserved. This information is not intended as a substitute for professional medical care. Always follow your healthcare professional's instructions. * Care Plan - Cari Carson RN - 01/15/2024 10:56 PM EST Clinical Goal(s): pt will remain free from injury (01/15/24 0000) Possible barriers to meeting goal(s)/advancing plan of care: patient condition Stability of the patient: Moderately stable - low risk of patient condition declining or worsening Summary regarding today's goal(s): Met: pt remained free from injury Recommendations: continue fall precautions * Pt Handout (on AVS) - Kelsey Candelaria RN - 01/15/2024 1:57 PM EST [id number] Valsartan and Sacubitril Brand Name(s): Entresto IMPORTANT WARNING: Tell your doctor if you are or plan to become . Do not take the combination of valsartan and sacubitril if you are . If you become while you are taking valsartan andsacubitril, stop taking valsartan and sacubitril and call your doctor immediately. The combination of valsartan and sacubitril may cause or serious injury to the fetus when taken in the last 6 months of . WHY is this medicine prescribed? The combination of valsartan and sacubitril is usually used in combination with other medications to lower the risk of and hospitalization in adults with certain types of heart failure. The combination of valsartan and sacubitril is also used to treat certain types of heart failure in children 1 year of age and older. Valsartan is in a class of medications called angiotensin II receptor antagonists. It works by blocking the action of certain natural substances that tighten the blood vessels, allowing the blood to flow more smoothly and the heart to pump more efficiently. Sacubitril is in a class of medications called neprilysin inhibitors. It works to help control blood volume. HOW should this medicine be used? The combination of valsartan and sacubitril comes as a tablet and a sprinkle capsule (capsule that contains oral pellets, which are small beads of medication that can be sprinkled on food) [facility] The tablets are usually taken twice a day with or without food. The sprinkle capsules are mixed with food and taken twice a day. To help you remember to take the combination of valsartan and sacubitril, take it at around the same times every day. Follow the directions on your prescription label carefully, and ask your doctor or pharmacist to explain any part you do not understand. Take valsartan and sacubitril exactly as directed. Do not take more or less of it or take it more often thanprescribed by your doctor. To take the sprinkle capsules mixed with food, open the capsule and sprinkle the entire contents onto 1 or 2 teaspoonfuls of soft foods, such as applesauce, yogurt, or pudding. Swallow the mixture right after you mix it without chewing. Do not swallow the sprinkle capsules whole; do not chew or crush the oral pellets. If you or your child cannot swallow the tablets, your pharmacist can prepare this medication as an oral suspension (liquid). Shake the bottle of suspension well before each dose. Your doctor may start you on a low dose of valsartan and sacubitril and gradually increase your dose. The combination of valsartan and sacubitril controls heart failure but does not cure it. Continue to take valsartan and sacubitril even if you feel well. Do not stop taking valsartan and sacubitril without talking to your doctor. Ask your pharmacist or doctor for a copy of the liquor bridge operator helper's information for the patient. Are there OTHER USES for this medicine? This medication may be prescribed for other uses; ask your doctor or pharmacist for more information. What SPECIAL PRECAUTIONS should I follow? Before taking valsartan and sacubitril, tell your doctor and pharmacist if you are allergic (swelling of your face, lips, tongue, or throat, or difficulty breathing) to valsartan, other angiotensin receptor blockers (ARB) such as azilsartan (Edarbi, in Edarbyclor), candesartan (Atacand, in Atacand HCT), irbesartan (Avapro, in Avalide), losartan (Cozaar, in Hyzaar), olmesartan (Benicar, in Franky, in Benicar HCT, in Tribenzor), telmisartan (Micardis, in Micardis HCT); angiotensin-converting enzyme (EUNICE) inhibitors such as benazepril (Lotensin, in Lotrel), captopril, enalapril (Epaned, Vasotec, in Vaseretic), fosinopril, lisinopril (Qbrelis, Zestril, in Zestoretic), moexipril, perindopril (in Prestalia), quinapril, ramipril (Altace), or trandolapril (Mavik, in Tarka); sacubitril; any other medications; or any of the ingredients in valsartan and sacubitril tablets and sprinkle capsules. Ask your pharmacist for a list of the ingredients. Some medications should not be taken with valsartan and sacubitril. Other medications may cause dosing changes or extra monitoring when taken with valsartan and sacubitril. Make sure you have discussed any medications you are currently taking or plan to take before starting valsartan and sacubitril with your doctor and pharmacist. Before starting, stopping, or changing any medications while taking valsartan and sacubitril, please get the advice of your doctor or pharmacist. The following nonprescription or herbal products may interact with valsartan and sacubutril: ibuprofen (Advil, Motrin), naproxen (Aleve). Be sure to let your doctor and pharmacist know that you are taking these medications before you start taking valsartan and sacubutril. Do not start any of these medications while taking valsartan and sacubutril without discussing with your healthcare provider. tell your doctor if you have or have ever had hereditary angioedema (inherited condition that causes episodes of swelling in the hands, feet, face, airway, or intestines); diabetes or kidney, or liver disease. tell your doctor if you are . Do not breastfeed while you are taking valsartan and sacubutril. you should know that valsartan and sacubutril may cause dizziness, lightheadedness, and faintingwhen you get up too quickly from a lying position. This is more common when you first start taking valsartan and sacubitril. To help avoid this problem, get out of bed slowly, resting your feet on the floor for a few minutes before standing up. you should know that diarrhea, vomiting, not drinking enough fluids, and sweating a lot can cause a drop in blood pressure, which may cause lightheadedness and fainting. Tell your doctor if you have any of these problems or develop them during your treatment. What SPECIAL DIETARY instructions should I follow? Do not use salt substitutes containing potassium without talking to your doctor. If your doctor prescribes a low-salt or low-sodium diet, follow these directions carefully. What should I do IF I FORGET to take a dose? Take the missed dose as soon as you remember it. However, if it is almost time for the next dose, skip the missed dose and continue your regular dosing schedule. Do not take a double dose to make up for a missed one. What SIDE EFFECTS can this medicine cause? Valsartan and sacubitril may cause side effects. Tell your doctor if any of these symptoms are severe or do not go away: cough extreme tiredness Some side effects can be serious. If you experience any of these symptoms or those listed in the SPECIAL PRECAUTIONS section, call your doctor immediately: rash itching swelling of the lips, tongue, face, or throat difficulty breathing The combination of valsartan and sacubitril may cause other side effects. Call your doctor if you have any unusual problems while taking this medication. If you experience a serious side effect, you or your doctor may send a report to the Food and Drug Administration's (FDA) MedWatch Adverse Event Reporting program online (https://www.fda.gov/Safety/MedWatch) or by phone ( ). What should I know about STORAGE and DISPOSAL of this medication? Keep this medication in the container it came in, tightly closed, and out of reach of children. Store the tablets at room temperature and away from excess heat and moisture (not in the bathroom). Store the bottle of oral suspension at room temperature for up to 15 days; do not refrigerate it. It is important to keep all medication out of sight and reach of children as many containers (such as weekly pill minders and those for eye drops, creams, patches, and inhalers) are not child-resistant and young children can open them easily. To protect young children from poisoning, always lock safety caps and immediately place the medication in a safe location - one that is up and away and out of their sight and reach. https://www.upandaway.org Unneeded medications should be disposed of in special ways to ensure that pets, children, and otherpeople cannot consume them. However, you should not flush this medication down the toilet. Instead,the best way to dispose of your medication is through a medicine take-back program. Talk to your pharmacist or contact your local garbage/recycling department to learn about take-back programs in your community. See the FDA's Safe Disposal of Medicines website (https://goo.gl/c4Rm4p) for more information if you do not have access to a take-back program. What should I do in case of OVERDOSE? In case of overdose, call the poison control helpline at . Information is also available online at https://www.poisonhelp.org/help. If the victim has collapsed, had a seizure, has trouble breathing, or can't be awakened, immediately call emergency services at [phone]. Symptoms of overdose may include the following: dizziness fainting What OTHER INFORMATION should I know? Keep all appointments with your doctor and the laboratory. Your doctor may order certain lab tests to check your body's response to valsartan and sacubitril. Do not let anyone else take your medication. Ask your pharmacist any questions you have about refilling your prescription. It is important for you to keep a written list of all of the prescription and nonprescription (hyst-vqt-[id number]) medicines you are taking, as well as any products such as vitamins, minerals, or otherdietary supplements. You should bring this list with you each time you visit a doctor or if you areadmitted to a hospital. It is also important information to carry with you in case of emergencies. This report on medications is for your information only, and is not considered individual patient advice. Because of the changing nature of drug information, please consult your physician or pharmacist about specific clinical use. The [employer] represents that the information provided hereunder was formulated with a reasonable standard of care, and in conformity with professional standards in the field. The [employer] makes no representations or warranties, express or implied, including, but not limited to, any implied warranty of merchantability and/or fitness for a particular purpose, with respect to such information and specifically disclaims all such warranties. Users are advised that decisions regarding drug therapy are complex medical decisions requiring the independent, informed decision of an appropriate health critical care physician assistant, and the information is provided for informational purposes only. The entire monograph for a drug should be reviewed for a thorough understanding of the drug's actions, uses and side effects. The [employer] does not endorse or recommend the use of any drug.The information is not a substitute for medical care. [facility] Patient Medication Information?. Copyright, 2023. [employer], [address] [place] [address], [address], [place], [place]. All Rights Reserved. Duplication for commercial use must be authorized by [facility]. Selected Revisions: August 31, 2023. [facility] Patient Medication Information?. Copyright, 2023 * Communication - Hoda Chahal MD - 01/15/2024 1:11 PM EST BRIEF EP UPDATE Russ Love is a 83 year old male with past medical problems as above who presented with OOH VF/ arrest and is being seen as a consult by Electrophysiology for consideration for a defibrillator.He has multivessel coronary artery disease along with possibly severe aortic stenosis. The underwent PCI to treat his coronary artery disease. He has severe , which is being planned for TAVR as outpatient. Along with reduced EF, this represents an ongoing risk factor for further tacycarrhythmias,which is also reversible. Given reversible causes of VT/VF, he would benefit from a wearable defibrillator. On followup, after TAVR, he will need to be evaluated for eligibility for an implantable defibrillator. Echocardiogram on 01/10/2024 The qualitative LV ejection fraction is 30-34% (moderately reduced). There is diffuse hypokinesis with dyssynchronous LV contractility due to LBBB. The left ventricular cavity size is mildly enlarged. The right ventricular systolic function is qualitatively normal. Aortic stenosis is detected but not quantitated. Consider low dose dobutamine protocol for assessment of severity if clinically warranted. 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 RECOMMENDATIONS - Discussed wearable defibrillator, and patient is agreeable. Will order this. - Please obtain repeat TTE after TAVR to evaluate for improvement of LVEF - Please follow-up with EP as outpatient with TTE for evaluation of eligibility for ICD. * Care Plan - Adis Lam RN - 01/15/2024 3:32 AM EST Clinical Goal(s): pt will remain free from injury (01/15/24 0000) Possible barriers to meeting goal(s)/advancing plan of care: celeste, impaired mobility Stability of the patient: Moderately stable - low risk of patient condition declining or worsening Summary regarding today's goal(s): Met: Recommendations: continue POC * Pt Handout (on AVS) - Salvador Amor RPh - 01/14/2024 7:32 AM EST [id number] Clopidogrel Brand Name(s): Plavix; also available generically IMPORTANT WARNING: Clopidogrel must be changed to an active form in your body so that it can treat your condition. Some people do not change clopidogrel to its active form in the body as well as other people. Because the medication does not work as well in these people, they may be at a higher risk of having a heart attack or stroke. There are tests available to identify people who have trouble changing clopidogrelto an active form. Talk to your doctor about whether you should be tested. If you are found to havedifficulty converting clopidogrel to its active form, your doctor may change your dose of clopidogrel or tell you not to take clopidogrel. Your doctor or pharmacist will give you the liquor bridge operator helper's patient information sheet (Medication Guide) when you begin treatment with clopidogrel and each time you refill your prescription. Read the information carefully and ask your doctor or pharmacist if you have any questions. You can also visit the Food and Drug Administration (FDA) website (https://www.fda.gov/Drugs/DrugSafety/bsk932983.htm) or the liquor bridge operator helper's website to obtain the Medication Guide. Talk to your doctor about the risks of taking clopidogrel. WHY is this medicine prescribed? Clopidogrel is used alone or with aspirin to prevent serious or life-threatening problems with the heart and blood vessels in people who have had a stroke, heart attack, or severe chest pain. This includes people who have percutaneous coronary intervention (PCI; angioplasty; a type of heart surgery) that may involve inserting coronary stents (metal tubes surgically placed in clogged blood vesselsto improve blood flow) or who have coronary artery bypass grafting (CABG; a type of heart surgery).Clopidogrel is also used to prevent serious or life-threatening problems with the heart and blood vessels in people who have peripheral arterial disease (poor circulation in the blood vessels that supply blood to the legs). Clopidogrel is in a class of medications called antiplatelet medications. It works by preventing platelets (a type of blood cell) from collecting and forming clots that may cause a heart attack or stroke. HOW should this medicine be used? Clopidogrel comes as a tablet to take by mouth. It is usually taken once a day with or without food. Take clopidogrel at around the same time every day. Follow the directions on your prescription label carefully, and ask your doctor or pharmacist to explain any part you do not understand. Take clopidogrel exactly as directed. Do not take more or less of it or take it more often than prescribed byyour doctor. Clopidogrel will help prevent serious problems with your heart and blood vessels only as long as you take the medication. Continue to take clopidogrel even if you feel well. Do not stop taking clopidogrel without talking to your doctor. If you stop taking clopidogrel, there is a higher risk that you may have a heart attack or stroke. If you have a stent, there is also a higher risk that you coulddevelop a blood clot in the stent if you stop taking clopidogrel too soon. Are there OTHER USES for this medicine? Clopidogrel is also sometimes used to prevent blood clots in people with atrial fibrillation (a condition in which the heart beats irregularly). Talk to your doctor about the possible risks of using this medication for your condition. This medication may be prescribed for other uses; ask your doctor or pharmacist for more information. What SPECIAL PRECAUTIONS should I follow? Before taking clopidogrel, tell your doctor and pharmacist if you are allergic to clopidogrel, prasugrel (Effient), ticlopidine, any other medications, or any ingredient in clopidogrel tablets. Ask your pharmacist or check the Medication Guide for a list of the ingredients. tell your doctor and pharmacist what other prescription and nonprescription medications, vitamins, nutritional supplements, and herbal products you are taking or plan to take while taking clopidogrel. Your doctor may need to change the doses of your medications or monitor you carefully for side effects. . The following nonprescription products may interact with clopidogrel: omeprazole (Prilosec, Prilosec OTC, Zegerid); esomeprazole (Nexium); aspirin and other nonsteroidal anti-inflammatory drugs (NSAIDs) such as ibuprofen (Advil, Motrin) and naproxen (Aleve, Naprosyn). Be sure to let your doctor and pharmacist know that you are taking these medications before you start taking clopidogrel. Do not start any of these medications while taking clopidogrel without discussing with your healthcare provider. tell your doctor if you have bleeding ulcers (sores in the lining of the stomach or small intestine that are bleeding), bleeding in the brain, or any other condition that causes severe bleeding. Your doctor may tell you that you should not take clopidogrel. tell your doctor if you have recently been injured and if you have or have ever had liver or kidney disease or any condition that may cause bleeding, including stomach problems such as ulcers. tell your doctor if you are , plan to become , or are breast- feeding. If you become while taking clopidogrel, call your doctor. if you are having surgery, including dental surgery, tell the doctor or dentist that you are taking clopidogrel. Your doctor may tell you to stop taking clopidogrel at least 5 days prior to your surgery to avoid excessive bleeding during surgery. Your doctor will tell you when to start taking clopidogrel again after your surgery. you should know that you may bleed more easily or for a longer time than usual while you are taking clopidogrel. Be careful not to cut or hurt yourself while you are taking clopidogrel. What SPECIAL DIETARY instructions should I follow? Unless your doctor tells you otherwise, continue your normal diet. What should I do IF I FORGET to take a dose? Take the missed dose as soon as you remember it. However, if it is almost time for the next dose, skip the missed dose and continue your regular dosing schedule. Do not take a double dose to make up for a missed one. What SIDE EFFECTS can this medicine cause? Clopidogrel may cause side effects. Tell your doctor if any of these symptoms are severe or do not go away: excessive tiredness headache dizziness nausea vomiting stomach pain diarrhea nosebleed Some side effects can be serious. If you experience any of the following symptoms, call your doctorimmediately: hives rash itching difficulty breathing or swallowing swelling of the face, throat, tongue, lips, eyes, hands, feet, ankles, or lower legs hoarseness black and tarry stools red blood in stools bloody vomit vomit that looks like coffee grounds unusual bleeding or bruising pink or brown urine slow or difficult speech weakness or numbness of an arm or a leg changes in vision fever shortness of breath fast heartbeat pale skin purple patches or bleeding under the skin confusion yellowing of the skin or eyes seizures Clopidogrel may cause other side effects. Call your doctor if you have any unusual problems while taking this medication. If you experience a serious side effect, you or your doctor may send a report to the Food and Drug Administration's (FDA) MedWatch Adverse Event Reporting program online (https://www.fda.gov/Safety/MedWatch) or by phone ( ). What should I know about STORAGE and DISPOSAL of this medication? Keep this medication in the container it came in, tightly closed, and out of reach of children. Store it at room temperature and away from excess heat and moisture (not in the bathroom). Unneeded medications should be disposed of in special ways to ensure that pets, children, and otherpeople cannot consume them. However, you should not flush this medication down the toilet. Instead,the best way to dispose of your medication is through a medicine take-back program. Talk to your pharmacist or contact your local garbage/recycling department to learn about take-back programs in your community. See the FDA's Safe Disposal of Medicines website (https://goo.gl/c4Rm4p) for more information if you do not have access to a take-back program. It is important to keep all medication out of sight and reach of children as many containers (such as weekly pill minders and those for eye drops, creams, patches, and inhalers) are not child-resistant and young children can open them easily. To protect young children from poisoning, always lock safety caps and immediately place the medication in a safe location - one that is up and away and out of their sight and reach. https://www.upandaway.org What should I do in case of OVERDOSE? In case of overdose, call the poison control helpline at . Information is also available online at https://www.poisonhelp.org/help. If the victim has collapsed, had a seizure, has trouble breathing, or can't be awakened, immediately call emergency services at 328. Symptoms of overdose may include the following: unusual bruising or bleeding What OTHER INFORMATION should I know? Keep all appointments with your doctor. Do not let anyone else take your medication. Ask your pharmacist any questions you have about refilling your prescription. It is important for you to keep a written list of all of the prescription and nonprescription (apil-nce-qmywiuf) medicines you are taking, as well as any products such as vitamins, minerals, or otherdietary supplements. You should bring this list with you each time you visit a doctor or if you areadmitted to a hospital. It is also important information to carry with you in case of emergencies. This report on medications is for your information only, and is not considered individual patient advice. Because of the changing nature of drug information, please consult your physician or pharmacist about specific clinical use. The [place] [employer] represents that the information provided hereunder was formulated with a reasonable standard of care, and in conformity with professional standards in the field. The [place] [employer] makes no representations or warranties, express or implied, including, but not limited to, any implied warranty of merchantability and/or fitness for a particular purpose, with respect to such information and specifically disclaims all such warranties. Users are advised that decisions regarding drug therapy are complex medical decisions requiring the independent, informed decision of an appropriate health critical care physician assistant, and the information is provided for informational purposes only. The entire monograph for a drug should be reviewed for a thorough understanding of the drug's actions, uses and side effects. The [place] [employer] does not endorse or recommend the use of any drug.The information is not a substitute for medical care. [facility] Patient Medication Information?. Copyright, 2023. The [employer] [employer], [address], [address], [place], [place]. All Rights Reserved. Duplication for commercial use must be authorized by [facility]. Selected Revisions: August 01, 2023. [facility] Patient Medication Information?. Copyright, 2023 * Progress Notes - Non-Billable - Geo Barroso MD - 01/13/2024 8:57 PM EST Post-Cath Check Subjective: Patient doing well post-cath. Denies significant pain, numbness, tingling, bleeding, weakness at the right wrist cath site. Objective: BP 130/58 | Pulse 67 | Temp 36.4 C (97.5 F) (Tympanic) | Resp 18 | Ht 1.791 m (5' 10.5") | Wt 85.1 kg (187 lb 9.8 oz) | SpO2 100% | BMI 26.54 kg/m | BSA 2.06 m Constitutional: Conscious, alert, cooperative and in no immediate distress HEENT: NC/AT, Tongue: moist Chest: Good bilateral air entry, Clear to auscultation Heart: S1 S2 audible, rhythm regular, no murmurs, clicks or rubs Cath site: TR band is off. No significant bleeding. Pulse, strength, sensation intact. No bruit heard. Abdomen: Soft, nondistended, nontender. Dark pink urine in Celeste catheter bag. Cath results: Coronary disease - hemodynamically significant LAD diffusely disease up to 80% pLCX 70% stenosis Mid RCA 70% stenosis Intervention Summary: LAD lesion treated with 3 overlapping drug-eluting stent (2.5mm x 15mm [place]; 2.25 mm X 22 mm [place]; 2.0 mm X 18 mm [place], prox to distal). LCX lesion treated with 1 drug-eluting stent (2.0mm x 12mm [place]). RCA lesion treated with 2 overlapping drug-eluting stent (2.5 mm X 26 mm [place]; 2.5 mm x 26mm [place]). Final angiographic result with 0% residual stenosis, SUELLEN 3 flow, and no evidence of dissection or perforation. A/P: Russ Love is a 83 year old male who underwent cardiac catheterization. Remainder of management per day team note. * Care Plan - Antonette Doan RN - 01/13/2024 7:28 PM EST Clinical Goal(s): patient will remain free from falls (01/13/24 0800) Possible barriers to meeting goal(s)/advancing plan of care: impaired mobility Stability of the patient: Moderately stable - low risk of patient condition declining or worsening Summary regarding today's goal(s): Met: pt did not fall Recommendations: continue to follow fall precautions * Progress Notes - Non-Billable - Elvis Curran MD - 01/13/2024 6:32 PM EST BRIEF UPDATE: 5cm clot noted on ultrasound. CBI clamped, catheter balloon deflated and patient manually irrigatedwith richi syringe and normal saline. Approximately 30cc of clot was removed. Catheter remained clear during irrigation. CBI restarted with clear pink tinged urine. Plan: -maintain CBI at this time -okay for RN to flush celeste for clots prn -if concern for clot retention/occlusion, clamp CBI and evaluate with bladder scan. Please page urology if concern. -Please make patient NPO at [phone] Elvis Warren MD * Pt Handout (on AVS) - Mary Ann Ortega RN - 01/13/2024 11:15 AM EST Images from the original note were not included. [id number] Sudden Cardiac Arrest When the heart suddenly stops beating, it's called sudden cardiac arrest. When the heart isn?t beating, it can?t pump blood. Without blood, vital organs such as the brain and the lungs can't work right. Sudden cardiac arrest causes a person to become unconscious. Breathing stops. Emergency treatment is needed to get the heart beating again. If treatment is not started right away, sudden cardiac arrest can lead to sudden cardiac . What causes sudden cardiac arrest? Sudden cardiac arrest occurs because there is a problem with the electrical system of the heart. Most often, this is because of heart disease that leads to an irregular heartbeat (arrhythmia). A severe arrhythmia can cause the heart to stop beating. Most often, this is because of heart disease thatleads to an irregular heartbeat (arrhythmia). Things that can lead to arrhythmia and sudden cardiacarrest include: A blocked artery to the heart muscle (heart disease) that leads to a heart attack Weakening of the heart muscle (heart failure) Scarring or thickening of the heart muscle Problems with the levels of certain minerals in the blood Use of stimulant street drugs such as cocaine and methamphetamine Severe injury to the chest Disorders of the electrical system of the heart such as long Q-T syndrome Long periods of time without oxygen, such as with a blocked airway from choking or a blood clot in the lung (pulmonary embolism) Sudden cardiac arrest, heart disease, and heart attack Cardiac arrest is not the same as a heart attack. Sudden cardiac arrest is a problem with the heart's electrical system. Heart attack is a problem with the heart's blood flow (circulation). But a heart attack can be a cause of sudden cardiac arrest. A heart attack is a problem with the blood flow to the heart muscle. This problem is a result of a condition called heart disease. Normally, arteriescarry blood and oxygen to the heart muscle. With heart disease, one or more of the arteries get narrowed or blocked. If an artery becomes fully blocked, the heart muscle doesn?t get the oxygen it needs. This part of the heart muscle is severely injured or dies. The result is a heart attack. of the heart muscle may also trigger sudden cardiac arrest. Many of the same factors that increase your risk for heart attack increase the risk for sudden cardiac arrest. These include: Family history of heart disease Smoking Unhealthy cholesterol levels High blood pressure Diabetes Lack of physical activity Obesity Symptoms This condition most often happens suddenly, without warning. In some cases, you may have symptoms for a few weeks leading up to the event. These may include lightheadedness, shortness of breath, or feeling like your heart is fluttering (palpitations). But these symptoms are often general. You may ignore them or think they are caused by something else. Symptoms during a cardiac arrest include: Unconsciousness (not moving or speaking) No pulse Gasping breaths or no breathing at all Treatment Sudden cardiac arrest is a medical emergency. Fast action is needed to reverse this life-threatening condition. Cardiopulmonary resuscitation (CPR) is the patel treatment. Here?s what to do: Always make sure the scene is safe. Tap or gently shake if you see or find a person who has collapsed. In a loud voice ask "Are you OK? If the person doesn't respond, shout for help and call 911 right away. Put your phone on Moodswiing. If you know an AED (automated external defibrillator) is available right away, get it quickly. An AED checks the heart rhythm and if needed briefly shocks the heart. If other people are with you, have one of them call 911 and get an AED, if available. Use the AED as soon as you have one. Check for normal breathing and a pulse. If the person is not responding and is not breathing normally, or is gasping only, or has no pulse then start CPR. If you are not trained in CPR, the only person doing CPR, or don't want to do breaths, do chest compressions only CPR (for teens or adults). Give chest compressions Lay the person on their back on a firm, flat surface Clothing can be moved out of the way. Give chest compressions. Place the heel of one hand on the lower half of the breastbone. Place your other hand on top of the first hand. Push hard, push fast. Push at a rate of 100 to 120 chest compressions per minute. Press straightdown on the chest at least 2 inches. [place] [employer] recommends doing compressions to the beat of the Bee Dario's song "Stayin Alive." Allow the person's chest to come back up after each compression. This allows the heart to refillwith blood. Keep giving chest compressions until: o The person shows signs of moving or breathing o Someone else arrives who can do CPR o You become exhausted and aren't able to continue o The scene becomes unsafe o Emergency medical services arrives Where can I get CPR training? Take a CPR class. You can take a CPR training class online or in your area. To find a class, contact [employer] or [phone] ([phone]). Last Reviewed Date: 2021 00:00:00 9682-1133 [employer] All rights reserved. This information is not intended as a substitute for professional medical care. Always follow your healthcare professional's instructions. * Care Plan - Antonette Doan RN - 01/12/2024 9:41 PM EST Clinical Goal(s): Pt will remain free from injuries from 0694-4520. (01/11/242201) Possible barriers to meeting goal(s)/advancing plan of care: impaired mobility Stability of the patient: Moderately stable - low risk of patient condition declining or worsening Summary regarding today's goal(s): Met: pt was not injured Recommendations: continue to follow safety precautions * Care Plan - Anh Mcclellan RN - 01/11/2024 4:59 AM EST Clinical Goal(s): Patient will maintain o2 sat greater than 92% this shift (01/10/241999) Possible barriers to meeting goal(s)/advancing plan of care: heart failure Stability of the patient: Moderately stable - low risk of patient condition declining or worsening Summary regarding today's goal(s): Met: Recommendations: O2 prn and treatments per orders * Care Plan - Yasmeen Rothman RN - 01/10/2024 5:34 PM EST Clinical Goal(s): Patient will remain free of falls. (01/10/24 0800) Possible barriers to meeting goal(s)/advancing plan of care: CBI, amiodarone gtt, unsteady gait. Stability of the patient: Moderately stable - low risk of patient condition declining or worsening Summary regarding today's goal(s): Met: Patient remained free of falls this shift. Recommendations: Continue falls precautions and assist with ambulation appropriately. * Progress Notes - Non-Billable - Johnathan Brown MD - 01/10/2024 2:15 PM EST POST-PROCEDURE CHECK Procedure(s): coronary angiography Subjective: Patient doing well post procedure. Denies significant pain, numbness, tingling, bleeding, weakness of his R hand or wrist Also denies any chest pain, shortness of breath, nausea, vomiting, abdominal pain, celeste site pain Objective: BP 119/87 | Pulse 72 | Temp 36.5 C (97.7 F) (Tympanic) | Resp 17 | Ht 1.791 m (5' 10.5") | Wt 84 kg (185 lb 3 oz) | SpO2 99% | BMI 26.20 kg/m | BSA 2.04 m Urethral Catheter (Active) Number of days: 2 Peripheral Line Right Antecubital 18 Gauge (Active) Number of days: 2 Peripheral Line Left;Upper 18 Gauge (Active) Number of days: 1 Peripheral Line Left;Lower 18 Gauge (Active) Number of days: 2 General: Patient in no apparent distress. HEENT: normocephalic, atraumatic. Oral mucosa moist and partially edentulous Heart: regular rate and rhythm; S1 and S2 present; no murmurs, rubs or gallops. Pulmonary: Lungs clear to auscultation bilaterally; no wheezes, rhonchi or crackles. Abdomen: Soft, non-tender, non-distended. No suprapubic fullness : celeste draining light pink bloody urine no significant clots, CBI in place low rate Extremities: no LE edema distally Neuro: again (consistently) not oriented to exact date (states January 11 and 2003 on each interview), otherwise oriented, family states he is at baseline and often joking during these questions, no asymmetry; PERRL BLT Psych: Appropriate mood and pleasant/joking affect. Access/Surgical site: clean, dry, cap refill 2-3 seconds BLT and symmetric, intact to light touch distally and with normal ROM, no hematoma, bandage was placed as wrist was open Procedure findings: *R radial access Coronary disease - hemodynamically significant LAD diffusely diseased, up to 50% stenosis in the mid LAD and up to 80% stenosis just distal to D3. Prox LCX 70% stenosis Mid RCA 70% stenosis Assessment/Plan: 83 year old year old male who underwent coronary angiography without complications. Surgical vs procedural options were reviewed with family including Mana at bedside. Pending further eval for TAVR/PCI viability. Continue heparin gtt, ASA and statin CTS evaluated and deeming TAVR/PCI as likely best option though multidisciplinary discussion to follow further eval F/u on CT TAVR study F/u on TTE results pending Diet: HH, Na restriction Rest of management per day team note Needs dental f/u after surgery (see note 01/10/24 Dr. Gonzalez) Anesthesia should note possible displacement of dentition risk if intubation indicated Pt will be discussed with fellow Dr. Garvey and attending Dr. Kemp It has been a privilege to participate in the care of this patient Johnathan Brown MD Resident, PGY1, [facility] This chart was completed in part utilizing [employer] Speech Voice Recognition Software. Grammatical errors, random word insertions, pronoun errors, and incomplete sentences are an occasional consequence of this system due to software limitations, ambient noise, and hardware issues. Any formal questions or concerns about the content, text, or information contained within the body of this dictation should be directly addressed to the provider for clarification. * Ancillary Progress Note - Christopher Maurice RCIS - 01/10/2024 9:57 AM EST [facility] [id number] Ancillary Progress Note Patient Name: Russ Love Date: 01/10/2024 Patient will be escorted to [facility]. We performed a Diagnostic Cardiac Catheterization procedure on this patient.. The right radial artery was used for access with a 6 [place] sheath. A Radial Band was applied at 10 mL of air to close the site. There is no hematoma and no ooze from the cath site noted. No sterile dressing applied to site. Radial band applied to site Distal pulses were palpated and instructions to patient were given. There were no complications during the case. Please see the MAR for the medications that were given. See Cath Procedure Log for patient vitals during the case. * Communication - Dilshad Tipton DO - 01/10/2024 9:32 AM EST INFORMED CONSENT FOR CARDIAC CATH AND INTERVENTIONAL PROCEDURES: I discussed with patient the alternatives to cardiac cath including medical therapy and if appropriate exercise testing. I discussed the risks of cath including 04/999 , AL, CVA and 2/100 risk of allergic reaction, bleeding, infection, arrhythmia requiring shock, damage to artery requiring surgery or amputation, radiation skin unger. I discussed technique of catheterization. The patient indicated understanding and a preference for proceeding with catheterization considering these factors. I discussed with the patient coronary intervention and alternatives including bypass surgery and medical therapy. I discussed the risks of intervention including 5-10% risk of AL, 5% risk of bleeding possibly requiring transfusion, 1% risk of , 1% risk of emergency CABG, and 20- 30% risk of restenosis, and the chance that even a successful procedure will not relieve symptoms if they are not due to cardiac ischemia. The patient would like to have ad hoc intervention done at the time of the ca theterization if it seems appropriate. Discussed with patient that given his comorbidities including but not limited to cardiomyopathy that he is at higher risk for complications than the above stated percentages. He verbalized understanding and still wishes to proceed with planned procedure. * Hospital Course - Johnathan Brown MD - 01/10/2024 8:24 AM EST {Hospital Course documentation can easily be pulled into the Discharge Summary by documenting here and using the smartlink in the Discharge Summary template:07416} 83 y/o M who presented to [facility] as transfer from [facility] after out of hospital cardiac arrestwith ROSC after electrical cardioversion. His workup was notable for A1c, 7.1, TTE showing EF 30-35% and diffuse hypokinesis c/w previously known LBBB, (+) cardiac enzymes s/o NSTEMI, cardiac catheterization showing multivessel coronary artery disease, and CTS was consulted for consideration of CABG / AVR. The patient was deemed a poor candidate for surgery, and as such PCI was pursued. EP was consulted given VF arrest, and ultimately recommended follow up with their clinic s/p TAVR and rpt TTEfor consideration of ICD candidacy at that time, and the patient was discharged on amiodarone and with portable/wearable defibrillator. Hospital course also notable for gross hematuria w/assoc ABLA for which urology was brought on board, which resolved to faint blood tinged urine, though given continued passage of clots and failed TOV the patient was ultimately discharged with celeste in place. He will require further workup of hematuria and TOV. Dentistry was also consulted given potential ORplans, and recommended peridex and follow up for tooth extractions. Given his newly reduced EF, he was started on GDMT (jardiance, toprol, entresto). Ultimately, the patient was deemed stable for discharge to home on 01/16/24. He will require followup with PCP in 1 week for routine discharge follow up and medication adjustment (can consider adding spironolactone), Cardiology in 1 month for continued titration of GDMT (and rpt TTE 3 months aftermaximally tolerated dosing), participation in cardiac rehab, dentistry in the next month, urology in the next week, and . * Progress Notes - Non-Billable - Johnathan Brown MD - 01/09/2024 6:02 AM EST Images from the original note were not included. [facility] H771/A PROGRESS NOTE - Cardiovascular Medicine [address] [address] Name: Russ Love Location: [facility] H771/A Date: 01/09/2024 Time: 6:03 AM Date of admission: 01/08/2024 Brief Summary: 83 y/o M w/PMHx of HTN, DLD, DM2, known RBBB and recently diagnosed LBBB moderate tosevere who presented from OSH after OOH VF cardiac arrest w/ROSC and c/f newly noted reduced EF on PRODUCTION HAND TTE. INTERVAL HISTORY: Overnight: ANASTASIA Pt seen and examined at bedside this morning He reported no current pain, could not entirely remember the events of his cardiac arrest at the hockey game Despite such was in good spirits Had limited recollection on his PRODUCTION HAND Rx and medical history No SOB, no chest pain/palpitations, no pre syncope, abd pain Objective Most Recent Vital Signs: BP: 148 mmHg/60 mmHg (01/09/24599) Pulse: 66 (01/09/2400) Resp: 15 (01/09/24599) Temp: 36.89 C (01/09/24 0400) Temp Summary: Temp Min: 36.9 C (98.4 F) Max: 36.9 C (98.4 F) SpO2: 95 % (01/09/24 0600) O2 flow rate: Supplemental O2 Delivery: Room Air, None (01/09/24 0700) Vital Signs Last 24 Hours: Systolic BP: Most Recent Systolic BP Av.3 mmHg Min: 116 mmHg Max: 148 mmHg Diastolic BP: Most Recent Diastolic BP Av mmHg Min: 47 mmHg Max: 60 mmHg Temperature: Most Recent Temperature Av.9 C Min: 36.89 C Max: 36.89 C Pulse: Pulse Av.1 Min: 63 Max: 76 Respirations: Resp Av.8 Min: 15 Max: 21 SpO2: SpO2 Av.1 % Min: 95 % Max: 98 % Urethral Catheter (Active) Number of days: 1 Peripheral Line Right Antecubital 18 Gauge (Active) Number of days: 1 Peripheral Line Lower;Right 20 Gauge (Active) Number of days: 1 Arterial Line Right Brachial (Active) Number of days: 1 Intake & Output Summary (Last 24 hours): Intake/Output Summary (Last 24 hours) at 01/09/2024 0603 Last data filed at 01/09/2024 0500 Gross per 24 hour Intake 85.65 ml Output 455 ml Net -369.35 ml Net IO Since Admission: -369.35 mL [01/09/24 0603] Output by Drain (mL) 01/08/24 0700 - 01/08/24 1459 01/08/24 1500 - 01/08/24 2259 01/08/24 2300 - 01/09/24 0603 Range Total Requested LDAs do not have output data documented. Bowels: Height/Wt Weight Trend: Wt Readings from Last 7 Encounters: 01/09/24 84.6 kg (186 lb 8.2 oz) 12/20/23 86.2 kg (190 lb) 09/04/23 82.8 kg (182 lb 9.6 oz) 03/04/23 84.5 kg (186 lb 3.2 oz) 12/18/22 84.3 kg (185 lb 12.8 oz) 09/01/22 84.4 kg (186 lb) 06/15/22 83.9 kg (185 lb) Earliest Wt This Admission Weight: 84.6 kg (186 lb 8.2 oz) (01/08/24 2230) Most Recent Wt This Admission Weight: 84.6 kg (186 lb 8.2 oz) (01/09/24 0600) Weight change: Body mass index is 26.38 kg/m. Physical Exam Constitutional: no acute distress, resting comfortable in bedside chair Neuro: pupils equal and round, alert and attentive to conversation; fluent speech without dysarthria, hearing grossly intact to conversation, oriented to person, place, month and day, not to year consistently, not to setting consistently Head/face, ears, nose, throat: normocephalic, atraumatic, oral mucosa moist, partially edentulous Cardiovascular: (+) holosystolic murmur with diminished S2, regular rate and rhythm, well perfused distally w/DP/R +2 Pulm: breathing comfortably on room air, no accessory muscle use, crackles Abd: soft, non tender throughout : celeste catheter in place draining bloody urine, some sediment no large clots Extremities: no edema Surgical Site: None currently Laboratory Values: Blood Gas: No results in the last 7 days - inpatent use only Chemistry Panel: Lab results within last 7 days (see chart for full results) Units 01/09/246 01/08/24224301/07/24 0000 SODIUM mmol/L 143 139 -- POTASSIUM mmol/L 3.9 4.1 3.6 CHLORIDE mmol/L 106 103 -- CO2 mmol/L 20* 19* -- EGFR mL/min >90 90 -- BUN mg/dL 13 14 -- CREATININE mg/dL 0.7 0.7 1.0 GLUCOSE mg/dL 116 150* 197* CALCIUM mg/dL 8.5 8.5 -- Magnesium mg/dL 2.0 2.0 -- Phosphorus mg/dL 3.8 4.0 -- ANION GAP mmol/L 17* 17* -- Complete Blood Count: Lab results within last 7 days (see chart for full results) Units 01/09/24 0436 01/08/24224301/07/24 0000 WBC K/uL 8.08 9.23 -- HGB g/dL 12.1* 12.7* 13.3* HCT % 37.9* 39.1* -- PLT K/uL 142 142 -- MCV fL 86.5 87.3 -- Cardiac Studies: Lab results within last 7 days (see chart for full results) Units 01/09/24 0436 01/08/24 2244 Troponin T, High Sensitivity ng/L 56* 59* Coagulation Studies: Lab results within last 7 days (see chart for full results) Units 01/09/24 0436 01/08/24 2244 Prothrombin Time seconds 14.2 14.1 INR 1.1 1.1 aPTT seconds -- 53* Heparin, Unfractionated IU/mL 0.19* 0.20* Liver Function Panel: Lab results within last 7 days (see chart for full results) Units 01/08/24 2244 Triglycerides mg/dL 102 Infectious Studies: Lab results within last 7 days (see chart for full results) Units 01/09/24 0047 Lactate mmol/L 0.7 Cultures: reviewed. No results in the last 7 days - inpatent use only Recent Cultures (2 Weeks) No lab values to display. Radiographic Studies: No imaging results in the last 72 hours CARDIAC STUDIES: TTE 2016 Interpretation Summary The examination is adequate to evaluate the referral indication. Sinus rhythm with frequent ectopy was present during the echocardiogram. The LV wall thickness is mildly increased (concentric). The left ventricular wall motion is normal. The qualitative LV ejection fraction is 5559% (normal). The aortic valve has three leaflets. Moderate aortic valve sclerosis is present. Aortic stenosis is absent. There is no significant aortic regurgitation. There is no evidence of pulmonary hypertension. The aortic root and proximal ascending aorta are mildly enlarged. TTE 09/12/2022 Interpretation Summary The examination is adequate to evaluate the referral indication. There was normal sinus rhythm with ventricular trigeminy during the examination. The left ventricular cavity size is normal. The LV wall thickness is moderately increased (concentric). The septal motion is abnormal consistent with intrventricular conduction delay. The regional left ventricular wall motion is otherwise normal. The qualitative LV ejection fraction is 50-54% (normal). The aortic valve is moderately calcified. Moderate aortic valve stenosis is present. The left ventricular diastolic function is mildly abnormal (grade I). Mild mitral regurgitation is present. TTE 11/12/23 Interpretation Summary The qualitative LV ejection fraction is 40-44% [...] has declined, aortic valve systolic gradient unchanged. TTE 01/10/24 Pending Prior to Admission medications Medication Sig Last Dose Discont. Lisinopril-hydroCHLOROthiazide 10-12.5 MG Oral Tablet TAKE 1/2 TABLET BY MOUTH EVERY DAY Jardiance 25 MG Oral Tablet (Empagliflozin) TAKE 1 TABLET BY MOUTH ONCE DAILY glipiZIDE ER 5 MG Oral Tablet Extended Release 24 Hour (Glucotrol XL) TAKE 1 TABLET BY MOUTH EVERY MORNING metFORMIN HCl 1000 MG Oral Tablet (Glucophage) TAKE 1 TABLET BY MOUTH TWICE DAILY Atorvastatin Calcium 40 MG Oral Tablet (Lipitor) Take 1 Tablet by mouth in the morning. Vitamin C 125 MG Oral Tablet Chewable Take by mouth. OneTouch Ultra In Vitro Strip (Glucose Blood) use to test blood sugars once daily as directed traMADol HCl 50 MG Oral Tablet (Ultram) Take 1 Tablet by mouth every 6 hours as needed for Pain, Severe. Patient not taking: Reported on 12/20/2023 CYANOCOBALAMIN (VITAMIN B-12) 100 MCG Tablet Take 1 Tablet by mouth in the morning. VITAMIN D 1000 UNIT PO CAPS 1 capsule daily LANCETS MISC once daily ONE TOUCH ULTRA BONUS PACK KIT as directed Current Facility-Administered Medications Medication Dose Route Frequency Provider aspirin chew tab 81 mg 81 mg Oral Daily(AM) Geo Barroso MD atorvaSTATin (Lipitor) tab 40 mg 40 mg Oral Q 1700 Geo Barroso MD dextrose 50% inj 25 mL 25 mL IV Push PRN Geo Barroso MD dextrose 50% inj 50 mL 50 mL IV Push PRN Geo Barroso MD glucagon (Glucagen) inj 1 mg 1 mg Intramuscular PRN Geo Barroso MD Glucose (Glutose 15) 40 % gel 15 g of glucose 15 g of glucose Oral PRN Geo Barroso MD Glucose (Glutose 15) 40 % gel 30 g of glucose 30 g of glucose Oral PRN Geo Barroso MD glucose chew tab 16 g 16 g Oral PRN Geo Barroso MD insulin aspart (NovoLOG) inj Subcutaneous With meals Geo Barroso MD amiodarone (Cordarone) 900 mg in NSS 500 mL INFUSION 0.5 mg/min Central IV Continuous Call Pharmacyto Dispense Geo Barroso MD chlorHEXIDINE (Periogard) 0.12 % oral rinse 15 mL 15 mL Oral mucosal membrane BID (0800,1999) Geo Barroso MD hEParin 1000 UNIT/ML inj 1,300 Units 15 Units/kg IV Push PRN Geo Barroso MD hEParin 1000 UNIT/ML inj 2,600 Units 30 Units/kg IV Push PRN Geo Barroso MD hEParin 25,000 units in 250 mL (Xa-Cardiac) infusion 0-30 Units/kg/hr Intravenous Titrate Geo Barroso MD Oral Hygiene: Mouth Swab with dentifrice Oral Q4H Limited (00;04;12;16) Geo Barroso MD sodium chloride 0.9 % flush peripheral adriano 3 mL 3 mL IV Push Q8H Geo Barroso MD Assessment and Plan IMPRESSION : Principal Problem: NSTEMI (non-ST elevated myocardial infarction) (HCC) Active Problems: History of tobacco use Vitamin D deficiency Right thyroid nodule Aortic valve stenosis History of cardiac arrest Resolved Problems: * No resolved hospital problems. * 83 y/o M w/PMHx as above who presented for out of hospital VF arrest w/ROSC no s/p intubation extubation at OSH before transfer. Also has history of moderate vs severe based on echo reports with newly reduced EF. Must r/o ischemic cardiomyopathy. VF arrest -continue amio gtt -telemetry monitoring HFrEF (40%) Moderate possibly severe aortic stenosis Pt appears euvolemic. Will hold off on diuresis for now and evaluate daily. - remove A line - hold PRODUCTION HAND jardiance - hold PRODUCTION HAND lisinopril(HCTZ) for the same - start coreg 3.125 BID Monitor HR / BP response -continue to advance GDMT as able s/p cath -rpt TTE tomorrow am R/o NSTEMI Possible cause of VF arrest. - heparin gtt, ASA 81mg, atorvastatin 40mg qd - cath likely tomorrow, potential evaluation for TAVR to follow - HH, CC diet Hematuria Mild normocytic anemia likely in the setting of blood loss - suspect traumatic celeste - monitor Hgb - consult urology for consideration of bladder irrigation - monitor for urinary retention TOV to follow at later date Chronic conditions: Hypertension: Hold PRODUCTION HAND lisinopril-hydrochlorothiazide Type 2 diabetes: Hold PRODUCTION HAND metformin, glipizide, continue with low-dose sliding scale insulin Hold PRODUCTION HAND vitamin B12, vitamin-D Diet: Orders Placed This Encounter Procedures Adult Complex Diet : Consistent Carbohydrate - 4 Choices (60 grams) --- Heart Healthy VTE Prophylaxis: hEParin Bowel Regimen: None ordered PT/OT: not consulted Family: I updated the patient's via telephone. All questions answered. List of services consulted/following: None PHARMACOLOGIC VTE PROPHYLAXIS: hEParin CODE STATUS: Full Code EXPECTED DISCHARGE DATE: No information available Patient discussed with, will be seen and examined by attending physician, Bradly Miguel MD It has been a privilege to participate in the care of this patient Johnathan Brown MD Resident, PGY1, [facility] This chart was completed in part utilizing [employer] Speech Voice Recognition Software. Grammatical errors, random word insertions, pronoun errors, and incomplete sentences are an occasional consequence of this system due to software limitations, ambient noise, and hardware issues. Any formal questions or concerns about the content, text, or information contained within the body of this dictation should be directly addressed to the provider for clarification. documented in this encounter Plan of Treatment Upcoming Encounters Date Type Department Care Team (Late st Contact Info) Description 01/23/2024 1:00 PM EST [facility] [address] [place] [address] Nurse [facility] [address] [place] [address] 01/24/2024 11:20 AM EST Office Visit [facility] [address] [place] [phone] Elvis Flores MD [address] [place] [address] 03/02/2024 2:30 PM EST Imaging Radiology [facility] [address] [facility] [address] [place] [address] 03/06/2024 9:40 AM EST Office Visit Family Practice, [facility] [address] [place] [address] Elvis Flores MD [address] [place] [address] 03/09/2024 3:00 PM EST Procedure Only Urology, [place] [address] [place] [address] Katherine Mccormick MD [address] [place] [address] 11/11/2024 9:30 AM EDT Cardiac Studies Cardiac Studies, [facility] [address] [place] [address] Scheduled Orders Name Type Priority Associated Diagnoses Orde r Schedule CARDIAC REHAB W/ECG MONITORING Procedures Routine NSTEMI (non-ST elevated myocardial infarction) (HCC) S/P PTCA (percutaneous transluminal coronary angioplasty) Ordered: 01/13/2024 CT UROGRAPHY W WO CONTRAST Medical Imaging Routine Gross hematuria Expected: 02/15/2024, Expires: 02/14/2025 BASIC METABOLIC PANEL Lab Routine Heart failure (HCC) Expected: 01/21/2024, Expires: 04/15/2024 CBC Lab Routine Anemia due to acute blood loss Expected: 01/21/2024, Expires: 05/16/2024 Scheduled Referrals Name Type Priority Associated Diagnoses Orde r Schedule CARDIAC REHAB REFERRAL OP Referral Within 10 days (routine) NSTEMI (non-ST elevated myocardial infarction) (HCC) S/P PTCA (percutaneous transluminal coronary angioplasty) Ordered: 01/13/2024 ELECTROPHYSIOLOGY REFERRAL OP Referral Within 30 days (routine) Presence of external cardiac defibrillator History of cardiac arrest Ordered: 01/16/2024 CARDIOLOGY REFERRAL OP Referral Within 30 days (routine) Aortic valve stenosis, etiology of cardiac valve disease unspecified Ordered: 01/16/2024 Health Maintenance Due Date Last Done Comments [...] this encounter Medical Devices Implanted Type Area Jacquard Card Lacer Device Identifier Shelf Expiration Date Model / Serial / Lot Stent Grenora 2.25x22 [place] [employer] - [id number] Implanted:Qty: 1 on 01/13/2024 by Nelsy Calvillo MD at [facility] [employer] : VASCULAR [id number] 08/28/2026 [id number] UX / / [id number] Stent Dawit 2.0x18 [employer] [place] [employer] - [id number] Implanted:Qty: 1 on 01/13/2024 by Nelsy Calvillo MD at [facility] [employer] : VASCULAR [id number] 06/25/2026 [id number] UX / / [id number] Stent Grenora 2.50x15 [place] [employer] - [id number] Implanted:Qty: 1 on 01/13/2024 by Nelsy Calvillo MD at [facility] [employer] : VASCULAR 07/22/2026 [id number] UX / / [id number] Stent Dawit 2.0x12 [place] [employer] - [id number] Implanted:Qty: 1 on 01/13/2024 by Nelsy Calvillo MD at [facility] [employer] : VASCULAR [id number] 03/05/2026 [id number] UX / / [id number] Stent Dawit 2.50x26 [place] [employer] - [id number] Implanted:Qty: 1 on 01/13/2024 by Nelsy Calvillo MD at [facility] [employer] : VASCULAR [id number] 09/24/2026 [id number] UX / / [id number] Stent Dawit 2.50x26 [place] [employer] - [id number] Implanted:Qty: 1 on 01/13/2024 by Nelsy Calvillo MD at [facility] [employer] : VASCULAR [id number] 09/24/2026 [id number] UX / / [id number] documented as of this encounter Procedures Procedure Name Priority Date/Time Associated Diagnosis Comments GLUCOSE METER, POINT OF CARE TAL 01/16/2024 11:38 AM EST GLUCOSE METER, POINT OF CARE TAL 01/16/2024 8:09 AM EST BASIC METABOLIC PANEL Routine 01/16/2024 5:37 AM EST PT INR Routine 01/16/2024 5:37 AM EST PHOSPHORUS Routine 01/16/2024 5:37 AM EST CBC STAT 01/16/2024 5:37 AM EST MAGNESIUM Routine 01/16/2024 5:37 AM EST CBC STAT 01/16/2024 12:40 AM EST GLUCOSE METER, POINT OF CARE TAL 01/15/2024 9:16 PM EST GLUCOSE METER, POINT OF CARE TAL 01/15/2024 4:27 PM EST GLUCOSE METER, POINT OF CARE TAL 01/15/2024 11:22 AM EST GLUCOSE METER, POINT OF CARE TAL 01/15/2024 7:29 AM EST BASIC METABOLIC PANEL Routine 01/15/2024 4:21 AM EST TYPE AND SCREEN Routine 01/15/2024 4:21 AM EST PT INR Routine 01/15/2024 4:21 AM EST PHOSPHORUS Routine 01/15/2024 4:21 AM EST CBC STAT 01/15/2024 4:21 AM EST MAGNESIUM Routine 01/15/2024 4:21 AM EST GLUCOSE METER, POINT OF CARE TAL 01/14/2024 8:55 PM EST GLUCOSE METER, POINT OF CARE TAL 01/14/2024 4:22 PM EST GLUCOSE METER, POINT OF CARE TAL 01/14/2024 12:00 PM EST GLUCOSE METER, POINT OF CARE TAL 01/14/2024 7:59 AM EST PT INR Routine 01/14/2024 6:02 AM EST CBC STAT 01/14/2024 6:02 AM EST BASIC METABOLIC PANEL Routine 01/14/2024 6:01 AM EST PHOSPHORUS Routine 01/14/2024 6:01 AM EST MAGNESIUM Routine 01/14/2024 6:01 AM EST HEMOGLOBIN AND HEMATOCRIT PANEL Routine 01/13/2024 10:14 PM EST GLUCOSE METER, POINT OF CARE TAL 01/13/2024 9:08 PM EST GLUCOSE METER, POINT OF CARE TAL 01/13/2024 4:37 PM EST ACT, POINT OF CARE TAL 01/13/2024 3 :18 PM EST ACT, POINT OF CARE TAL 01/13/2024 2: 33 PM EST ACT, POINT OF CARE TAL 01/13/2024 2: 03 PM EST US PELVIS TRANS-ABDOMINAL LIMITED STAT 01/13/2024 12:50 PM EST Other specified disorders of bladder GLUCOSE METER, POINT OF CARE TAL 01/13/2024 11:33 AM EST GLUCOSE METER, POINT OF CARE TAL 01/13/2024 7:30 AM EST BASIC METABOLIC PANEL Routine 01/13/2024 7:22 AM EST PT INR Routine 01/13/2024 7:22 AM EST PHOSPHORUS Routine 01/13/2024 7:22 AM EST CBC STAT 01/13/2024 7:22 AM EST MAGNESIUM Routine 01/13/2024 7:22 AM EST CARDIAC CATHETERIZATION REPORT Routine 01/13/2024 GLUCOSE METER, POINT OF CARE TAL 01/12/2024 9:21 PM EST HEMOGLOBIN AND HEMATOCRIT PANEL Routine 01/12/2024 6:16 PM EST GLUCOSE METER, POINT OF CARE TAL 01/12/2024 4:48 PM EST CTA ABD/PELVIS Routine 01/12/2024 12:07 PM EST Other specified disorders of bladder Hematuria, unspecified LACTATE STAT 01/12/2024 11:13 AM EST GLUCOSE METER, POINT OF CARE TAL 01/12/2024 11:06 AM EST GLUCOSE METER, POINT OF CARE TAL 01/12/2024 8:02 AM EST RED BLOOD CELL ANTIBODY IDENTIFICATION INTERPRETATION STAT 01/12/2024 6:25 AM EST ABO/RH STAT 01/12/2024 6:25 AM EST TYPE AND SCREEN Routine 01/12/2024 6:25 AM EST BASIC METABOLIC PANEL Routine 01/12/2024 5:15 AM EST HEPARIN, UNFRACTIONATED STAT 01/12/20 5:15 AM EST PT INR Routine 01/12/2024 5:15 AM EST PHOSPHORUS Routine 01/12/2024 5:15 AM EST MAGNESIUM Routine 01/12/2024 5:15 AM EST CBC STAT 01/12/2024 5:14 AM EST GLUCOSE METER, POINT OF CARE TAL 01/11/2024 9:04 PM EST CBC STAT 01/11/2024 4:32 PM EST GLUCOSE METER, POINT OF CARE TAL 01/11/2024 4:29 PM EST GLUCOSE METER, POINT OF CARE TAL 01/11/2024 11:22 AM EST GLUCOSE METER, POINT OF CARE TAL 01/11/2024 8:30 AM EST BASIC METABOLIC PANEL Routine 01/11/2024 4:42 AM EST HEPARIN, UNFRACTIONATED STAT 01/11/20 4:42 AM EST PT INR Routine 01/11/2024 4:42 AM EST PHOSPHORUS Routine 01/11/2024 4:42 AM EST CBC STAT 01/11/2024 4:42 AM EST MAGNESIUM Routine 01/11/2024 4:42 AM EST GLUCOSE METER, POINT OF CARE TAL 01/10/2024 10:27 PM EST CTA TAVR GATED STUDY STAT 01/10/2024 9:57 PM EST LACTATE STAT 01/10/2024 7:57 PM EST CBC STAT 01/10/2024 7:57 PM EST HEPARIN, UNFRACTIONATED STAT 01/10/20 6:16 PM EST GLUCOSE METER, POINT OF CARE TAL 01/10/2024 3:52 PM EST ECHO, COMPLETE (2D), TRANS-THORACIC Routine 01/10/2024 1:36 PM EST Heart failure (HCC) GLUCOSE METER, POINT OF CARE TAL 01/10/2024 11:56 AM EST GLUCOSE METER, POINT OF CARE TAL 01/10/2024 7:56 AM EST BASIC METABOLIC PANEL Routine 01/10/2024 4:46 AM EST HEPARIN, UNFRACTIONATED STAT 01/10/20 4:46 AM EST PT INR Routine 01/10/2024 4:46 AM EST PHOSPHORUS Routine 01/10/2024 4:46 AM EST CBC STAT 01/10/2024 4:46 AM EST MAGNESIUM Routine 01/10/2024 4:46 AM EST CARDIAC CATHETERIZATION REPORT Routine 01/10/2024 GLUCOSE METER, POINT OF CARE TAL 01/09/2024 10:47 PM EST HEPARIN, UNFRACTIONATED STAT 01/09/20 7:17 PM EST GLUCOSE METER, POINT OF CARE TAL 01/09/2024 4:37 PM EST GLUCOSE METER, POINT OF CARE TAL 01/09/2024 11:09 AM EST HEPARIN, UNFRACTIONATED STAT 01/09/20 24 11:05 AM EST TROPONIN T, HIGH SENSITIVITY Routine 01/09/2024 4:36 AM EST TSH WITH FREE T4 IF INDICATED Add-on 01/09/2024 4:36 AM EST BASIC METABOLIC PANEL Routine 01/09/2024 4:36 AM EST HEPARIN, UNFRACTIONATED STAT 01/09/20 4:36 AM EST PT INR Routine 01/09/2024 4:36 AM EST PHOSPHORUS Routine 01/09/2024 4:36 AM EST CBC STAT 01/09/2024 4:36 AM EST MAGNESIUM Routine 01/09/2024 4:36 AM EST LACTATE STAT 01/09/2024 12:47 AM EST TROPONIN T, HIGH SENSITIVITY Add-on 01/08/2024 10:44 PM EST LIPID PANEL WITH DIRECT LDL IF TG IS HIGH Add-on 01/08/2024 10:44 PM EST HEMOGLOBIN A1C Add-on 01/08/2024 10:44 PM EST BASIC METABOLIC PANEL Routine 01/08/2024 10:44 PM EST HEPARIN, UNFRACTIONATED STAT 01/08/20 10:44 PM EST PT INR STAT 01/08/2024 10:44 PM EST PHOSPHORUS Routine 01/08/2024 10:44 PM EST APTT STAT 01/08/2024 10:44 PM EST CBC STAT 01/08/2024 10:44 PM EST MAGNESIUM Routine 01/08/2024 10:44 PM EST documented in this encounter Results * (ABNORMAL) GLUCOSE METER, POINT OF CARE (01/16/2024 11:38 AM EST) GLUCOSE - POCT 234(H) 70 - 120 mg/dL 01/16/2024 12:03 PM EST [facility] Blood Whole blood specimen / Unknown 01/16/2024 11:38 AM EST 01/16/2024 12:03 PM EST us Mayelin Kemp MD LAB POINT OF CAR E TEST DOCKED DEVICE UNSOLICITED RESULTS Final Result Performing Organization Address City/[facility] Co de Phone Number [facility] [address] [place] [address] * (ABNORMAL) GLUCOSE METER, POINT OF CARE (01/16/2024 8:09 AM EST) GLUCOSE - POCT 184(H) 70 - 120 mg/dL 01/16/2024 8:16 AM EST [facility] Blood Whole blood specimen / Unknown 01/16/2024 8:09 AM EST 01/16/2024 8:16 AM EST us Mayelin Kemp MD LAB POINT OF CAR E TEST DOCKED DEVICE UNSOLICITED RESULTS Final Result Performing Organization Address City/[facility]/ZIP Co de Phone Number [facility] [address] [place] [address] * PHOSPHORUS (01/16/2024 5:37 AM EST) Phosphorus 4.7 2.5 - 4.8 mg/dL 01/16/2024 6:39 AM EST [facility] Blood Venous blood specimen / Unknown Venipuncture / Unknown 01/16/2024 5:37 AM EST 01/16/2024 6:05 AM EST us Geo Barroso MD LAB BLOOD ORDERABLES Final Resul t LABORATORY [facility] [address] [place] [address] * MAGNESIUM (01/16/2024 5:37 AM EST) Magnesium 2.2 1.5 - 2.6 mg/dL 01/16/2024 6:39 AM EST [facility] Blood Venous blood specimen / Unknown Venipuncture / Unknown 01/16/2024 5:37 AM EST 01/16/2024 6:05 AM EST us Geo Barroso MD LAB BLOOD ORDERABLES Final Resul t Performing Organization Address [facility] Co de Phone Number LABORATORY [facility] [address] [place] [address] * (ABNORMAL) BASIC METABOLIC PANEL (01/16/2024 5:37 AM EST) BUN 28(H) 6 - 20 mg/dL 01/16/2024 6:39 AM EST [facility] CREATININE 1.0 0.6 - 1.2 mg/dL 01/16/2024 6:39 AM EST [facility] EGFR 74 >=60 mL/min 01/16/2024 6:39 AM EST [facility] Comment:eGFR is calculated b ased on the CKD-EPI 2020 equation. SODIUM 136 135 - 146 mmol/L 01/16/2024 6:39 AM EST [facility] POTASSIUM 4.5 3.5 - 5.1 mmol/L 01/16/2024 6:39 AM EST [facility] CHLORIDE 101 98 - 107 mmol/L 01/16/2024 6:39 AM EST [facility] CO2 21(L) 22 - 32 mmol/L 01/16/2024 6:39 AM EST [facility] ANION GAP 14 7 - 15 mmol/L 01/16/2024 6:39 AM EST [facility] GLUCOSE 190(H) 70 - 120 mg/dL 01/16/2024 6:39 AM EST [facility] CALCIUM 8.9 8.4 - 10.2 mg/dL 01/16/2024 6:39 AM EST [facility] Blood Venous blood specimen / Unknown Venipuncture / Unknown 01/16/2024 5:37 AM EST 01/16/2024 6:05 AM EST Geo Barroso MD LAB BLOOD ORDERABLES Final Resul t Performing Organization Address [facility]/ZIP Co de Phone Number LABORATORY [facility] [address] [place] [address] * PT INR (01/16/2024 5:37 AM EST) Prothrombin Time 13.8 11.6 - 15.2 seconds 01/16/2024 6:33 AM EST [facility] INR 1.1 0.8 - 1.2 01/16/2024 6:33 AM EST [facility] Blood Venous blood specimen / Unknown Venipuncture / Unknown 01/16/2024 5:37 AM EST 01/16/2024 6:05 AM EST Narrative [facility] - 01/16/2024 6:33 AM EST Warfarin Therapy INR: 2.0-3.0 conventional anticoagulation INR: 2.5-3.5 high intensity anticoagulation Geo Barroso MD LAB BLOOD ORDERABLES Final Resul t Performing Organization Address City/[facility]/ZIP Co de Phone Number LABORATORY [address] [address] * (ABNORMAL) CBC (01/16/2024 5:37 AM EST) WBC 10.69 4.00 - 10.80 K/uL 01/16/2024 6:20 AM EST [facility] RBC 2.82 4.50 - 5.25 M/uL 01/16/2024 6:20 AM EST [facility] HGB 7.9(L) 14.0 - 16.8 g/dL 01/16/2024 6:20 AM EST [facility] HCT 25.1(L) 40.0 - 48.4 % 01/16/2024 6:20 AM EST [facility] MCV 89.0 82.0 - 99.5 fL 01/16/2024 6:20 AM EST [facility] MCH 28.0 27.0 - 34.0 pg 01/16/2024 6:20 AM EST [facility] MCHC 31.5 32.0 - 36.0 g/dL 01/16/2024 6:20 AM EST [facility] RDW 14.9 11.5 - 15.5 % 01/16/2024 6:20 AM EST [facility] PLT 235 140 - 400 K/uL 01/16/2024 6:20 AM EST [facility] MPV 9.7 6.6 - 11.1 fL 01/16/2024 6:20 AM EST [facility] nRBCs 0 <=0 /100 WBCs 01/16/2024 6:20 AM EST [facility] Blood Venous blood specimen / Unknown Venipuncture / Unknown 01/16/2024 5:37 AM EST 01/16/2024 6:05 AM EST us Geo Barroso MD LAB BLOOD ORDERABLES Final Resul t [facility] [address] [place], [place] [id number] * (ABNORMAL) CBC (01/16/2024 12:40 AM EST) WBC 13.48(H) 4.00 - 10.80 K/uL 01/16/2024 1:40 AM EST [facility] RBC 2.84 4.50 - 5.25 M/uL 01/16/2024 1:40 AM EST [facility] HGB 8.0(L) 14.0 - 16.8 g/dL 01/16/2024 1:40 AM EST [facility] HCT 25.2(L) 40.0 - 48.4 % 01/16/2024 1:40 AM EST [facility] MCV 88.7 82.0 - 99.5 fL 01/16/2024 1:40 AM EST [facility] MCH 28.2 27.0 - 34.0 pg 01/16/2024 1:40 AM EST [facility] MCHC 31.7 32.0 - 36.0 g/dL 01/16/2024 1:40 AM EST [facility] RDW 14.7 11.5 - 15.5 % 01/16/2024 1:40 AM EST [facility] PLT 240 140 - 400 K/uL 01/16/2024 1:40 AM EST LABORATORY [facility] MPV 10.0 6.6 - 11.1 fL 01/16/2024 1:40 AM EST LABORATORY [facility] nRBCs 0 <=0 /100 WBCs 01/16/2024 1:40 AM EST LABORATORY [facility] Blood Venous blood specimen / Unknown Venipuncture / Unknown 01/16/2024 12:40 AM EST 01/16/2024 12:44 AM EST Mercedez Davis DO LAB BLOOD ORDERABLES Final Res ult LABORATORY [facility] [address] [place] [address] * (ABNORMAL) GLUCOSE METER, POINT OF CARE (01/15/2024 9:16 PM EST) GLUCOSE - POCT 221(H) 70 - 120 mg/dL 01/15/2024 9:45 PM EST [employer] [facility] Blood Whole blood specimen / Unknown 01/15/2024 9:16 PM EST 01/15/2024 9:45 PM EST us Mayelin Kemp MD LAB POINT OF CAR E TEST DOCKED DEVICE UNSOLICITED RESULTS Final Result Performing Organization Address City/[facility]/ZIP Co de Phone Number [facility] [address] [place] [address] * (ABNORMAL) GLUCOSE METER, POINT OF CARE (01/15/2024 4:27 PM EST) GLUCOSE - POCT 363(H) 70 - 120 mg/dL 01/15/2024 4:31 PM EST [facility] Blood Whole blood specimen / Unknown 01/15/2024 4:27 PM EST 01/15/2024 4:31 PM EST us Mayelin Kemp MD LAB POINT OF CAR E TEST DOCKED DEVICE UNSOLICITED RESULTS Final Result [facility] [address] [place] [address] * (ABNORMAL) GLUCOSE METER, POINT OF CARE (01/15/2024 11:22 AM EST) GLUCOSE - POCT 212(H) 70 - 120 mg/dL 01/15/2024 3:58 PM EST [facility] Blood Whole blood specimen / Unknown 01/15/2024 11:22 AM EST 01/15/2024 3:58 PM EST us Mayelin Kemp MD LAB POINT OF CAR E TEST DOCKED DEVICE UNSOLICITED RESULTS Final Result Performing Organization Address [facility] Co de Phone Number [facility] [address] [place] [address] * (ABNORMAL) GLUCOSE METER, POINT OF CARE (01/15/2024 7:29 AM EST) GLUCOSE - POCT 161(H) 70 - 120 mg/dL 01/15/2024 7:39 AM EST [facility] Blood Whole blood specimen / Unknown 01/15/2024 7:29 AM EST 01/15/2024 7:39 AM EST us Mayelin Kemp MD LAB POINT OF CAR E TEST DOCKED DEVICE UNSOLICITED RESULTS Final Result Performing Organization Address [facility] Co de Phone Number [facility] [address] [place] [address] * TYPE AND SCREEN (01/15/2024 4:21 AM EST) ABO O 01/15/2024 10:01 AM EST LABORATORY [facility] BLOOD BANK Rh Negative 01/15/2024 10:01 AM EST LABORATORY [facility] Red Blood Cell Antibody Screen Negative 01/15/2024 10:01 AM EST [facility] Comment:This result is corin ed from result, resulted on 01/15/2024 9:57:05 Specimen Expiration Date 01/18/2024 23:59 01/15/2024 10:01 AM EST [facility]AT[facility] Blood Venous blood specimen / Unknown Venipuncture / Unknown 01/15/2024 4:21 AM EST 01/15/2024 4:37 AM EST Johnathan Brown MD LAB BLOOD BANK TE [facility] ORDERABLES Edited Result - Final Performing Organization Address City/[facility] Co de Phone Number LABORATORY [facility]OD [facility] [address] [place] [address] * PHOSPHORUS (01/15/2024 4:21 AM EST) Phosphorus 4.4 2.5 - 4.8 mg/dL 01/15/2024 5:12 AM EST LABORATORY [facility] Blood Venous blood specimen / Unknown Venipuncture / Unknown 01/15/2024 4:21 AM EST 01/15/2024 4:37 AM EST eGo Barroso MD LAB BLOOD ORDERABLES Final Resul t Performing Organization Address [facility] de Phone Number LABORATORY [place] [address] [place] [address] * MAGNESIUM (01/15/2024 4:21 AM EST) Magnesium 2.0 1.5 - 2.6 mg/dL 01/15/2024 5:12 AM EST LABORATORY [facility] Blood Venous blood specimen / Unknown Venipuncture / Unknown 01/15/2024 4:21 AM EST 01/15/2024 4:37 AM EST Geo Barroso MD LAB BLOOD ORDERABLES Final Resul t Performing Organization Address [facility] de Phone Number LABORATORY [place] [address] [place] [address] * (ABNORMAL) BASIC METABOLIC PANEL (01/15/2024 4:21 AM EST) BUN 20 6 - 20 mg/dL 01/15/2024 5:12 AM EST LAB[facility]ATORY [facility] CREATININE 0.8 0.6 - 1.2 mg/dL 01/15/2024 5:12 AM EST [facility]ORY [facility] EGFR 86 >=60 mL/min 01/15/2024 5:12 AM EST LAB[facility]ATORY [facility] Comment:eGFR is calculated b ased on the CKD-EPI 2020 equation. SODIUM 134(L) 135 - 146 mmol/L 01/15/2024 5:12 AM EST LAB[facility]ATORY [facility] POTASSIUM 4.6 3.5 - 5.1 mmol/L 01/15/2024 5:12 AM EST [facility] CHLORIDE 101 98 - 107 mmol/L 01/15/2024 5:12 AM EST [facility] CO2 21(L) 22 - 32 mmol/L 01/15/2024 5:12 AM EST [facility] ANION GAP 12 7 - 15 mmol/L 01/15/2024 5:12 AM EST [facility] GLUCOSE 166(H) 70 - 120 mg/dL 01/15/2024 5:12 AM EST [facility] CALCIUM 8.9 8.4 - 10.2 mg/dL 01/15/2024 5:12 AM EST LAB[facility]ATORY [facility] Blood Venous blood specimen / Unknown Venipuncture / Unknown 01/15/2024 4:21 AM EST 01/15/2024 4:37 AM EST us Geo Barroso MD LAB BLOOD ORDERABLES Final Resul t LABORATORY [facility] [address] [place] [address] * PT INR (01/15/2024 4:21 AM EST) Pathologist [facility] Prothrombin Time 13.9 11.6 - 15.2 seconds 01/15/2024 4:58 AM EST LAB[facility]ATORY [facility] INR 1.1 0.8 - 1.2 01/15/2024 4:58 AM EST LAB[facility]ATORY [facility] Blood Venous blood specimen / Unknown Venipuncture / Unknown 01/15/2024 4:21 AM EST 01/15/2024 4:37 AM EST Narrative [facility]ORY [facility] - 01/15/2024 4:58 AM EST Warfarin Therapy INR: 2.0-3.0 conventional anticoagulation INR: 2.5-3.5 high intensity anticoagulation us Geo Barroso MD LAB BLOOD ORDERABLES Final Resul t Performing Organization Address City/[facility] Co de Phone Number LABORATORY [facility] [address] [place] [address] * (ABNORMAL) CBC (01/15/2024 4:21 AM EST) WBC 9.01 4.00 - 10.80 K/uL 01/15/2024 4:50 AM EST LAB[facility]ATORY [facility] RBC 2.89 4.50 - 5.25 M/uL 01/15/2024 4:50 AM EST LAB[facility]ATORY [facility] HGB 8.0(L) 14.0 - 16.8 g/dL 01/15/2024 4:50 AM EST LAB[facility]ORY [facility] HCT 25.2(L) 40.0 - 48.4 % 01/15/2024 4:50 AM EST LAB[facility]ORY [facility] MCV 87.2 82.0 - 99.5 fL 01/15/2024 4:50 AM EST LAB[facility]ORY [facility] MCH 27.7 27.0 - 34.0 pg 01/15/2024 4:50 AM EST LAB[facility]ORY [facility] MCHC 31.7 32.0 - 36.0 g/dL 01/15/2024 4:50 AM EST LAB[facility]ORY [facility] RDW 14.6 11.5 - 15.5 % 01/15/2024 4:50 AM EST LAB[facility]ORY [facility] PLT 207 140 - 400 K/uL 01/15/2024 4:50 AM EST LAB[facility] MPV 9.7 6.6 - 11.1 fL 01/15/2024 4:50 AM EST LAB[facility]ORY [facility] nRBCs 0 <=0 /100 WBCs 01/15/2024 4:50 AM EST LAB[facility] Blood Venous blood specimen / Unknown Venipuncture / Unknown 01/15/2024 4:21 AM EST 01/15/2024 4:37 AM EST Geo Barroso MD LAB BLOOD ORDERABLES Final Resul t Performing Organization Address City/[facility]/ZIP Co de Phone Number LABORATORY [facility] [address] [place] [address] * (ABNORMAL) GLUCOSE METER, POINT OF CARE (01/14/2024 8:55 PM EST) GLUCOSE - POCT 240(H) 70 - 120 mg/dL 01/14/2024 10:13 PM EST [facility] Blood Whole blood specimen / Unknown 01/14/2024 8:55 PM EST 01/14/2024 10:13 PM EST us Mayelin Kemp MD LAB POINT OF CAR E TEST DOCKED DEVICE UNSOLICITED RESULTS Final Result Performing Organization Address City/[facility]/ZIP Co de Phone Number [facility] [address] [place] [address] * (ABNORMAL) GLUCOSE METER, POINT OF CARE (01/14/2024 4:22 PM EST) GLUCOSE - POCT 147(H) 70 - 120 mg/dL 01/15/2024 3:57 PM EST Social Median Blood Whole blood specimen / Unknown 01/14/2024 4:22 PM EST 01/15/2024 3:57 PM EST us Mayelin Kemp MD LAB POINT OF CAR E TEST DOCKED DEVICE UNSOLICITED RESULTS Final Result Performing Organization Address City/[facility]/ZIP Co de Phone Number [facility] [address] [place] [address] * (ABNORMAL) GLUCOSE METER, POINT OF CARE (01/14/2024 12:00 PM EST) GLUCOSE - POCT 171(H) 70 - 120 mg/dL 01/14/2024 12:17 PM EST Social Median Blood Whole blood specimen / Unknown 01/14/2024 12:00 PM EST 01/14/2024 12:17 PM EST us Mayelin Kemp MD LAB POINT OF CAR E TEST DOCKED DEVICE UNSOLICITED RESULTS Final Result [facility] [address] [place] [address] * (ABNORMAL) GLUCOSE METER, POINT OF CARE (01/14/2024 7:59 AM EST) GLUCOSE - POCT 195(H) 70 - 120 mg/dL 01/14/2024 8:20 AM EST [facility] Blood Whole blood specimen / Unknown 01/14/2024 7:59 AM EST 01/14/2024 8:20 AM EST us Mayelin Kemp MD LAB POINT OF CAR E TEST DOCKED DEVICE UNSOLICITED RESULTS Final Result Performing Organization Address [facility]/ZIP Co de Phone Number [facility] [address] [place] [address] * PT INR (01/14/2024 6:02 AM EST) Pathologist [facility] Prothrombin Time 13.9 11.6 - 15.2 seconds 01/14/2024 6:36 AM EST LABORATORY [facility] INR 1.1 0.8 - 1.2 01/14/2024 6:36 AM EST LAB[facility]ATORY [facility] Blood Venous blood specimen / Unknown Venipuncture / Unknown 01/14/2024 6:02 AM EST 01/14/2024 6:13 AM EST Narrative LAB[facility]ATORY [facility] - 01/14/2024 6:36 AM EST Warfarin Therapy INR: 2.0-3.0 conventional anticoagulation INR: 2.5-3.5 high intensity anticoagulation us Geo Barroso MD LAB BLOOD ORDERABLES Final Resul t LABORATORY [facility] [address] [place] [address] * (ABNORMAL) CBC (01/14/2024 6:02 AM EST) WBC 8.03 4.00 - 10.80 K/uL 01/14/2024 6:22 AM EST LABORATORY [facility] RBC 2.87 4.50 - 5.25 M/uL 01/14/2024 6:22 AM EST LAB[facility]ATORY [facility] HGB 8.2(L) 14.0 - 16.8 g/dL 01/14/2024 6:22 AM EST LAB[facility]ATORY [facility] HCT 25.1(L) 40.0 - 48.4 % 01/14/2024 6:22 AM EST LAB[facility]ORY [facility] MCV 87.5 82.0 - 99.5 fL 01/14/2024 6:22 AM EST LAB[facility]ORY [facility] MCH 28.6 27.0 - 34.0 pg 01/14/2024 6:22 AM EST LAB[facility]ORY [facility] MCHC 32.7 32.0 - 36.0 g/dL 01/14/2024 6:22 AM EST LAB[facility]ORY [facility] RDW 14.3 11.5 - 15.5 % 01/14/2024 6:22 AM EST LAB[facility]ATORY [facility] PLT 178 140 - 400 K/uL 01/14/2024 6:22 AM EST LAB[facility]ORY [facility] MPV 9.6 6.6 - 11.1 fL 01/14/2024 6:22 AM EST LAB[facility]ATORY [facility] nRBCs 0 <=0 /100 WBCs 01/14/2024 6:22 AM EST LAB[facility]ATORY [facility] Blood Venous blood specimen / Unknown Venipuncture / Unknown 01/14/2024 6:02 AM EST 01/14/2024 6:13 AM EST us Geo Barroso MD LAB BLOOD ORDERABLES Final Resul t LABORATORY [facility] [address] [place] [address] * PHOSPHORUS (01/14/2024 6:01 AM EST) Phosphorus 3.6 2.5 - 4.8 mg/dL 01/14/2024 6:42 AM EST LAB[facility]ATORY [facility] Blood Venous blood specimen / Unknown Venipuncture / Unknown 01/14/2024 6:01 AM EST 01/14/2024 6:13 AM EST us Geo Barroso MD LAB BLOOD ORDERABLES Final Resul t LABORATORY [facility] [address] [place] [address] * MAGNESIUM (01/14/2024 6:01 AM EST) Magnesium 1.9 1.5 - 2.6 mg/dL 01/14/2024 6:42 AM EST LABORATORY [facility] Blood Venous blood specimen / Unknown Venipuncture / Unknown 01/14/2024 6:01 AM EST 01/14/2024 6:13 AM EST us Geo Barroso MD LAB BLOOD ORDERABLES Final Resul t LABORATORY [facility] [address] [place] [address] * (ABNORMAL) BASIC METABOLIC PANEL (01/14/2024 6:01 AM EST) BUN 18 6 - 20 mg/dL 01/14/2024 6:42 AM EST LAB[facility]ORY [facility] CREATININE 0.7 0.6 - 1.2 mg/dL 01/14/2024 6:42 AM EST LAB[facility]ATORY [facility] EGFR >90 >=60 mL/min 01/14/2024 6:42 AM EST LAB[facility]ATORY [facility] Comment:eGFR is calculated b ased on the CKD-EPI 2020 equation. SODIUM 133(L) 135 - 146 mmol/L 01/14/2024 6:42 AM EST LAB[facility]ATORY [facility] POTASSIUM 4.5 3.5 - 5.1 mmol/L 01/14/2024 6:42 AM EST LAB[facility] CHLORIDE 100 98 - 107 mmol/L 01/14/2024 6:42 AM EST [facility] CO2 21(L) 22 - 32 mmol/L 01/14/2024 6:42 AM EST LAB[facility] ANION GAP 12 7 - 15 mmol/L 01/14/2024 6:42 AM EST [facility] GLUCOSE 201(H) 70 - 120 mg/dL 01/14/2024 6:42 AM EST LAB[facility] CALCIUM 8.5 8.4 - 10.2 mg/dL 01/14/2024 6:42 AM EST LAB[facility]ORY [facility] Blood Venous blood specimen / Unknown Venipuncture / Unknown 01/14/2024 6:01 AM EST 01/14/2024 6:13 AM EST us Geo Barroso MD LAB BLOOD ORDERABLES Final Resul t Performing Organization Address [facility]/ZIP Co de Phone Number LABORATORY [facility] [address] [place] [address] * (ABNORMAL) HEMOGLOBIN AND HEMATOCRIT PANEL (01/13/2024 10:14 PM EST) Pathologist [facility] HGB 8.3(L) 14.0 - 16.8 g/dL 01/13/2024 10:24 PM EST LAB[facility]ATORY [facility] HCT 26.2(L) 40.0 - 48.4 % 01/13/2024 10:24 PM EST LAB[facility]ATORY [facility] Blood Venous blood specimen / Unknown Venipuncture / Unknown 01/13/2024 10:14 PM EST 01/13/2024 10:17 PM EST us Johnathan Brown MD LAB BLOOD ORDERAB LES Final Result Performing Organization Address [facility]/ZIP Co de Phone Number LABORATORY [facility] [address] [place] [address] * (ABNORMAL) GLUCOSE METER, POINT OF CARE (01/13/2024 9:08 PM EST) [facility] GLUCOSE - POCT 245(H) 70 - 120 mg/dL 01/14/2024 12:36 AM EST Social Median Blood Whole blood specimen / Unknown 01/13/2024 9:08 PM EST 01/14/2024 12:36 AM EST us Mayelin Kemp MD LAB POINT OF CAR E TEST DOCKED DEVICE UNSOLICITED RESULTS Final Result Performing Organization Address City/[facility]/ZIP Co de Phone Number [facility] [address] [place] [address] * (ABNORMAL) GLUCOSE METER, POINT OF CARE (01/13/2024 4:37 PM EST) GLUCOSE - POCT 160(H) 70 - 120 mg/dL 01/13/2024 4:43 PM EST Social Median Blood Whole blood specimen / Unknown 01/13/2024 4:37 PM EST 01/13/2024 4:43 PM EST us Mayelin Kemp MD LAB POINT OF CAR E TEST DOCKED DEVICE UNSOLICITED RESULTS Final Result [address] [address] * ACT, POINT OF CARE (01/13/2024 3:18 PM EST) ACT 239 50 - 1,000 secs 01/13/2024 4:44 PM EST Social Median Blood 01/13/2024 3:18 PM EST 01/13/2024 4:44 PM EST Narrative Social Median - 01/13/2024 4:44 PM EST NORMAL (NON-HEPARINIZED) 74-137 SECONDS HEPARINIZED 200+ SECONDS CRITICAL GREATER THAN 1000 SECONDS us Mayelin Kemp MD LAB POINT OF CAR E TEST DOCKED DEVICE UNSOLICITED RESULTS Final Result Performing Organization Address [facility] Co de Phone Number [address] [address] * ACT, POINT OF CARE (01/13/2024 2:33 PM EST) ACT 239 50 - 1,000 secs 01/13/2024 4:44 PM EST Social Median Blood 01/13/2024 2:33 PM EST 01/13/2024 4:44 PM EST Narrative Social Median - 01/13/2024 4:44 PM EST NORMAL (NON-HEPARINIZED) 74-137 SECONDS HEPARINIZED 200+ SECONDS CRITICAL GREATER THAN 1000 SECONDS us Mayelin Kemp MD LAB POINT OF CAR E TEST DOCKED DEVICE UNSOLICITED RESULTS Final Result Performing Organization Address City/[facility]/ZIP Co de Phone Number [facility] [address] [place] [address] * ACT, POINT OF CARE (01/13/2024 2:03 PM EST) ACT 239 50 - 1,000 secs 01/13/2024 4:44 PM EST [facility] U[facility] Blood 01/13/2024 2:03 PM EST 01/13/2024 4:44 PM EST Narrative [facility] - 01/13/2024 4:44 PM EST NORMAL (NON-HEPARINIZED) 74-137 SECONDS HEPARINIZED 200+ SECONDS CRITICAL GREATER THAN 1000 SECONDS us Mayelni Kemp MD LAB POINT OF CAR E TEST DOCKED DEVICE UNSOLICITED RESULTS Final Result [facility] [address] [place] [address] * US PELVIS TRANS-ABDOMINAL LIMITED (01/13/2024 12:50 PM EST) Anatomical Region Laterality Modality Pelvis, Body Ultrasound 01/13/2024 1:01 PM EST Impressions 01/13/2024 12:58 PM EST IMPRESSION Dependent material in the urinary bladder which could be clot and measures 3.4 x 3.1 x 5.3 cm. A mass is difficult to exclude. Narrative 01/13/2024 12:58 PM EST EXAM US PELVIS TRANS-ABDOMINAL LIMITED-01/13/2024 12:50 pm HISTORY eval clot [id number] y/o year-oldM. COMPARISON CT scan of the abdomen and pelvis 01/12/2024 TECHNIQUE Ultrasound of the pelvis was performed transabdominally FINDINGS There is a Celeste catheter balloon in the urinary bladder. There is dependent material in the bladder which could be clot. It measures 3.4 x 3.1 x 5.3 cm. No blood flow is seen within it but it is difficult to exclude solid mass as well. There may be vascular calcifications in the wall of the urinary bladder. Procedure Note Mee Corcoran MD - 01/13/2024 EXAM US PELVIS TRANS-ABDOMINAL LIMITED-01/13/2024 12:50 pm HISTORY eval clot y/o year-oldM. COMPARISON CT scan of the abdomen and pelvis 01/12/2024 TECHNIQUE Ultrasound of the pelvis was performed transabdominally FINDINGS There is a Celeste catheter balloon in the urinary bladder. There isdependent material in the bladder which could be clot. It measures 3.4 x3.1 x 5.3 cm. No blood flow is seen within it but it is difficult toexclude solid mass as well. There may be vascular calcifications in thewall of the urinary bladder. IMPRESSION IMPRESSION Dependent material in the urinary bladder which could be clot and measures3.4 x 3.1 x 5.3 cm. A mass is difficult to exclude. Reggie Peterson MD RAD ULTRASOUND Final Result * (ABNORMAL) GLUCOSE METER, POINT OF CARE (01/13/2024 11:33 AM EST) GLUCOSE - POCT 148(H) 70 - 120 mg/dL 01/13/2024 12:02 PM EST Social Median Blood Whole blood specimen / Unknown 01/13/2024 11:33 AM EST 01/13/2024 12:02 PM EST Mayelin Kemp MD LAB POINT OF CAR E TEST DOCKED DEVICE UNSOLICITED RESULTS Final Result Performing Organization Address [facility]/ZIP Co de Phone Number [facility] [address] [place] [address] * (ABNORMAL) GLUCOSE METER, POINT OF CARE (01/13/2024 7:30 AM EST) GLUCOSE - POCT 178(H) 70 - 120 mg/dL 01/13/2024 7:38 AM EST Social Median Blood Whole blood specimen / Unknown 01/13/2024 7:30 AM EST 01/13/2024 7:38 AM EST Mayelin Kemp MD LAB POINT OF CAR E TEST DOCKED DEVICE UNSOLICITED RESULTS Final Result [facility] [address] [place] [address] * PHOSPHORUS (01/13/2024 7:22 AM EST) Phosphorus 3.6 2.5 - 4.8 mg/dL 01/13/2024 8:03 AM EST LABORATORY [facility] Blood Venous blood specimen / Unknown Venipuncture / Unknown 01/13/2024 7:22 AM EST 01/13/2024 7:28 AM EST Geo Barroso MD LAB BLOOD ORDERABLES Final Resul t LABORATORY [facility] [address] [place] [address] * MAGNESIUM (01/13/2024 7:22 AM EST) Magnesium 1.9 1.5 - 2.6 mg/dL 01/13/2024 8:03 AM EST LABORATORY [facility] Blood Venous blood specimen / Unknown Venipuncture / Unknown 01/13/2024 7:22 AM EST 01/13/2024 7:28 AM EST Geo Barroso MD LAB BLOOD ORDERABLES Final Resul t LABORATORY [facility] [address] [place] [address] * (ABNORMAL) BASIC METABOLIC PANEL (01/13/2024 7:22 AM EST) BUN 15 6 - 20 mg/dL 01/13/2024 8:03 AM EST LABORATORY [facility] CREATININE 0.7 0.6 - 1.2 mg/dL 01/13/2024 8:03 AM EST LABORATORY [facility] EGFR >90 >=60 mL/min 01/13/2024 8:03 AM EST LABORATORY [facility] Comment:eGFR is calculated b ased on the CKD-EPI 2020 equation. SODIUM 133(L) 135 - 146 mmol/L 01/13/2024 8:03 AM EST LABORATORY C POTASSIUM 4.3 3.5 - 5.1 mmol/L 01/13/2024 8:03 AM EST LABORATORY [facility] CHLORIDE 100 98 - 107 mmol/L 01/13/2024 8:03 AM EST LABORATORY C CO2 23 22 - 32 mmol/L 01/13/2024 8:03 AM EST LABORATORY C ANION GAP 10 7 - 15 mmol/L 01/13/2024 8:03 AM EST LABORATORY [facility] GLUCOSE 191(H) 70 - 120 mg/dL 01/13/2024 8:03 AM EST LABORATORY [facility] CALCIUM 8.7 8.4 - 10.2 mg/dL 01/13/2024 8:03 AM EST LABORATORY [facility] Blood Venous blood specimen / Unknown Venipuncture / Unknown 01/13/2024 7:22 AM EST 01/13/2024 7:28 AM EST Geo Barroso MD LAB BLOOD ORDERABLES Final Resul t Performing Organization Address [facility] Phone Number LABORATORY [place] [address] [place] [address] * PT INR (01/13/2024 7:22 AM EST) Prothrombin Time 13.5 11.6 - 15.2 seconds 01/13/2024 7:44 AM EST LABORATORY [facility] INR 1.0 0.8 - 1.2 01/13/2024 7:44 AM EST LABORATORY [facility] Blood Venous blood specimen / Unknown Venipuncture / Unknown 01/13/2024 7:22 AM EST 01/13/2024 7:28 AM EST Narrative LABORATORY C - 01/13/2024 7:44 AM EST Warfarin Therapy INR: 2.0-3.0 conventional anticoagulation INR: 2.5-3.5 high intensity anticoagulation us Geo Barroso MD LAB BLOOD ORDERABLES Final Resul t Performing Organization Address City/[facility] Co de Phone Number LABORATORY [facility] [address], [place] [id number] * (ABNORMAL) CBC (01/13/2024 7:22 AM EST) WBC 6.80 4.00 - 10.80 K/uL 01/13/2024 7:41 AM EST LAB[facility]ATORY [facility] RBC 3.04 4.50 - 5.25 M/uL 01/13/2024 7:41 AM EST LAB[facility] HGB 8.5(L) 14.0 - 16.8 g/dL 01/13/2024 7:41 AM EST LAB[facility]ORY [facility] HCT 26.5(L) 40.0 - 48.4 % 01/13/2024 7:41 AM EST LAB[facility] MCV 87.2 82.0 - 99.5 fL 01/13/2024 7:41 AM EST LAB[facility]ORY [facility] MCH 28.0 27.0 - 34.0 pg 01/13/2024 7:41 AM EST LAB[facility] MCHC 32.1 32.0 - 36.0 g/dL 01/13/2024 7:41 AM EST LAB[facility]ORY [facility] RDW 14.3 11.5 - 15.5 % 01/13/2024 7:41 AM EST LAB[facility] PLT 167 140 - 400 K/uL 01/13/2024 7:41 AM EST LAB[facility] MPV 9.5 6.6 - 11.1 fL 01/13/2024 7:41 AM EST LAB[facility]ATORY [facility] nRBCs 0 <=0 /100 WBCs 01/13/2024 7:41 AM EST LAB[facility]ATORY [facility] Blood Venous blood specimen / Unknown Venipuncture / Unknown 01/13/2024 7:22 AM EST 01/13/2024 7:28 AM EST Geo Barroso MD LAB BLOOD ORDERABLES Final Resul t LABORATORY [facility] [address] [place], [place] [id number] * CARDIAC CATHETERIZATION REPORT (01/13/2024) DATE OF PROCEDURE 01/13/2024 [facility] DIAGNOSTIC Nelsy Kendall MD [facility] INTERVENTIONAL Nelsy Kendall MD [facility] CONCLUSIONS * Coronary disease - hemodynamically significant LAD diffusely disease up to 80% pLCX 70% stenosis Mid RCA 70% stenosis Intervention Summary: LAD lesion treated with 3 overlapping drug-eluting stent (2.5mm x 15mm [place]; 2.25 mm X 22 mm [place]; 2.0 mm X 18 mm [place], prox to distal). LCX lesion treated with 1 drug-eluting stent (2.0mm x 12mm [place]). RCA lesion treated with 2 overlapping drug-eluting stent (2.5 mm X 26 mm [place]; 2.5 mm x 26mm [place]). Final angiographic result with 0% residual stenosis, SUELLEN 3 flow, and no evidence of dissection or perforation. [facility] PROCEDURES JULIET Stenting JULIET Stenting JULIET Stenting 1:23-1:37 hours:minutes Sedation [facility] TOTAL CONTRAST VOLUME 180 ml [facility] TOTAL RADIATION 0.50 Gy [facility] C[facility]Y COMPLICATIONS No complication None [place] 01/13/2024 01/15/2024 1:5 3 PM EST Mayelin Kemp MD CARD CATH Final Re sult [facility] * (ABNORMAL) GLUCOSE METER, POINT OF CARE (01/12/2024 9:21 PM EST) [facility] GLUCOSE - POCT 200(H) 70 - 120 mg/dL 01/13/2024 4:30 AM EST [employer] URX Blood Whole blood specimen / Unknown 01/12/2024 9:21 PM EST 01/13/2024 4:30 AM EST Mayelin Kemp MD LAB POINT OF CAR E TEST DOCKED DEVICE UNSOLICITED RESULTS Final Result [facility] [address] [place] [address] * (ABNORMAL) HEMOGLOBIN AND HEMATOCRIT PANEL (01/12/2024 6:16 PM EST) Pathologist [facility] HGB 8.7(L) 14.0 - 16.8 g/dL 01/12/2024 6:33 PM EST LAB[facility]ATORY [facility] HCT 28.4(L) 40.0 - 48.4 % 01/12/2024 6:33 PM EST LABORATORY [facility] Blood Venous blood specimen / Unknown Venipuncture / Unknown 01/12/2024 6:16 PM EST 01/12/2024 6:19 PM EST Johnathan Brown MD LAB BLOOD ORDERAB LES Final Result LABORATORY [facility] [address] [place] [address] * (ABNORMAL) GLUCOSE METER, POINT OF CARE (01/12/2024 4:48 PM EST) [facility] GLUCOSE - POCT 168(H) 70 - 120 mg/dL 01/12/2024 4:52 PM EST [employer] TechnologyWE[facility]BR[facility] HOSPITALTryton Medical [facility] Blood Whole blood specimen / Unknown 01/12/2024 4:48 PM EST 01/12/2024 4:52 PM EST Mayelin Kemp MD LAB POINT OF CAR E TEST DOCKED DEVICE UNSOLICITED RESULTS Final Result Performing Organization Address City/[facility]/ZIP Co de Phone Number [facility] [address] [place] [address] * CTA ABD/PELVIS (01/12/2024 12:07 PM EST) Anatomical Region Laterality Modality Abdomen, Pelvis, Body Computed T omography 01/12/2024 3:21 PM EST Impressions 01/12/2024 3:18 PM EST IMPRESSION Active bleeding in the bladder. The above finding was communicated via secured text to Dr. Johnathan Brwon on 01/12/2024 at 3:18 pm Narrative 01/12/2024 3:18 PM EST EXAM EXAM: CTA ABD/PELVIS DATE and TIME: 01/12/2024 HISTORY CLINICAL INFORMATION: ABLA, ongoing hematuria, r/o other source of hemorrhage COMPARISON CT 01/10/2024 TECHNIQUE Axial images of the abdomen and pelvis with and without intravenous contrast in the arterial and portal venous phases. Coronal and sagittal reconstructions were created from the axial data. 3D reformats were performed on a separate workstation. FINDINGS Vasculature: Aorta: Moderate atherosclerotic calcifications. The aorta is normal in course and caliber. Celiac trunk: Patent. There is conventional hepatic arterial anatomy. Superior mesenteric artery: Patent. Inferior mesenteric artery: Patent. Renal arteries: Patent.No accessory renal arteries are identified. The portal vein, splenic vein, superior mesenteric vein, inferior mesenteric vein and renal veins are patent. Common iliac arteries: Patent. External iliac arteries: Patent. Internal iliac arteries: Patent. Additional findings: Lower Chest: Pleural effusion with lower lobe atelectasis. Lines and devices: Celeste catheter in the bladder. Liver: Unremarkable. Gallbladder: Cholelithiasis. Bile ducts: Unremarkable. Pancreas: Unremarkable. Spleen: Unremarkable. Adrenals: Unremarkable. Kidneys/Ureters: Bilateral renal cysts. No hydronephrosis. Bladder: Layering blood products in the bladder with active bleeding. Celeste catheter in place. Reproductive organs: Prostatomegaly. Peritoneum/Retroperitoneum: Unremarkable. Bowel: Normal caliber. Colonic diverticulosis. Normal appendix. Lymph nodes: No lymphadenopathy. Abdominal Wall/Soft Tissues: Unremarkable. Bones: Degenerative osseous changes. Procedure Note Ananda Mohan MD - 01/12/2024 EXAM EXAM: CTA ABD/PELVIS DATE and TIME: 01/12/2024 HISTORY CLINICAL INFORMATION: ABLA, ongoing hematuria, r/o other source ofhemorrhage COMPARISON CT 01/10/2024 TECHNIQUE Axial images of the abdomen and pelvis with and without intravenouscontrast in the arterial and portal venous phases. Coronal and sagittalreconstructions were created from the axial data. 3D reformats wereperformed on a separate workstation. FINDINGS Vasculature: Aorta: Moderate atherosclerotic calcifications. The aorta is normal incourse and caliber. Celiac trunk: Patent. There is conventional hepatic arterial anatomy. Superior mesenteric artery: Patent. Inferior mesenteric artery: Patent. Renal arteries: Patent.No accessory renal arteries are identified. The portal vein, splenic vein, superior mesenteric vein, inferiormesenteric vein and renal veins are patent. Common iliac arteries: Patent. External iliac arteries: Patent. Internal iliac arteries: Patent. Additional findings: Lower Chest: Pleural effusion with lower lobe atelectasis. Lines and devices: Celeste catheter in the bladder. Liver: Unremarkable. Gallbladder: Cholelithiasis. Bile ducts: Unremarkable. Pancreas: Unremarkable. Spleen: Unremarkable. Adrenals: Unremarkable. Kidneys/Ureters: Bilateral renal cysts. No hydronephrosis. Bladder: Layering blood products in the bladder with active bleeding.Celeste catheter in place. Reproductive organs: Prostatomegaly. Peritoneum/Retroperitoneum: Unremarkable. Bowel: Normal caliber. Colonic diverticulosis. Normal appendix. Lymph nodes: No lymphadenopathy. Abdominal Wall/Soft Tissues: Unremarkable. Bones: Degenerative osseous changes. IMPRESSION IMPRESSION Active bleeding in the bladder. The above finding was communicated via secured text to Dr. Johnathan Hurd 01/12/2024 at 3:18 pm Johnathan Brown MD RAD CT F inal Result * LACTATE (01/12/2024 11:13 AM EST) Pathologist [facility] Lactate 1.7 0.4 - 2.0 mmol/L 01/12/2024 12:00 PM EST LAB[facility]ATORY [facility] Blood Venous blood specimen / Unknown Venipuncture / Unknown 01/12/2024 11:13 AM EST 01/12/2024 11:31 AM EST Johnathan Brown MD LAB BLOOD ORDERAB LES Final Result LABORATORY [facility] [address] [place] [address] * (ABNORMAL) GLUCOSE METER, POINT OF CARE (01/12/2024 11:06 AM EST) GLUCOSE - POCT 207(H) 70 - 120 mg/dL 01/13/2024 3:17 AM EST Social Median Blood Whole blood specimen / Unknown 01/12/2024 11:06 AM EST 01/13/2024 3:17 AM EST Mayelin Kemp MD LAB POINT OF CAR E TEST DOCKED DEVICE UNSOLICITED RESULTS Final Result [facility] [address] [place] [address] * (ABNORMAL) GLUCOSE METER, POINT OF CARE (01/12/2024 8:02 AM EST) GLUCOSE - POCT 162(H) 70 - 120 mg/dL 01/12/2024 8:17 AM EST [facility] Blood Whole blood specimen / Unknown 01/12/2024 8:02 AM EST 01/12/2024 8:17 AM EST Mayelin Kemp MD LAB POINT OF CAR E TEST DOCKED DEVICE UNSOLICITED RESULTS Final Result [facility] [address] [place] [address] * RED BLOOD CELL ANTIBODY IDENTIFICATION INTERPRETATION (01/12/2024 6:25 AM EST) Pathologist [facility] Red Cell Antibody Identification Interpretation Findings: Non-specific reactivity. A nonspecific antibody is identified in gel only (the most sensitive screening method). While alloantibodies can be a consequence of previous transfusion or , a non-specific antibody in gel is highly unlikely to be clinically significant (i.e., cause a hemolytic transfusion reaction or hemolytic disease of the fetus/). If transfusion is necessary, the patient will receive ABO compatible units. 01/16/2024 5:13 PM EST LAB[facility]ATORY [facility] Blood Venous blood specimen / Unknown Venipuncture / Unknown 01/12/2024 6:25 AM EST 01/12/2024 6:41 AM EST Mayelin Kemp MD LAB BLOOD BANK TEST ORDE RABLES Final Result Performing Organization Address City/[facility]/ZIP Co de Phone Number LABORATORY [facility] [address] [place] [address] * ABO/RH (01/12/2024 6:25 AM EST) Pathologist [facility] ABO O 01/12/2024 9:49 AM EST LABORATORY [facility] BLOOD BANK Rh Negative 01/12/2024 9:49 AM EST LAB[facility]ATORY [facility] BLOOD BANK Blood Venous blood specimen / Unknown Venipuncture / Unknown 01/12/2024 6:25 AM EST 01/12/2024 6:41 AM EST us Johnathan Brown MD LAB BLOOD BANK TE ST ORDERABLES Final Result Performing Organization Address [facility] de Phone Number LABORATORY [facility] BLOOD BANK [address] [place] [address] * TYPE AND SCREEN (01/12/2024 6:25 AM EST) ABO O 01/12/2024 10:32 AM EST LABORATORY [facility] BLOOD BANK Rh Negative 01/12/2024 10:32 AM EST LAB[facility]ATORY [facility] BLOOD BANK Red Blood Cell Antibody Screen Negative 01/12/2024 10:32 AM EST LAB[facility]ATORY [facility] BLOOD BANK Specimen Expiration Date 01/15/2024 23:59 01/12/2024 10:32 AM EST LAB[facility]ORY [facility] BLOOD BANK Blood Venous blood specimen / Unknown Venipuncture / Unknown 01/12/2024 6:25 AM EST 01/12/2024 6:41 AM EST us Johnathan Brown MD LAB BLOOD BANK TE ST ORDERABLES Final Result Performing Organization Address [facility] Phone Number LABORATORY [facility] BLOOD BANK [facility] [place] [address] * (ABNORMAL) HEPARIN, UNFRACTIONATED (01/12/2024 5:15 AM EST) Heparin, Unfractionated 0.43(H) <0.10 IU/mL 01/12/2024 5:45 AM EST LABORATORY [facility] Comment: Unfractionated therapeutic ranges for Anti Xa activity: For Cardiac/Neurologic treatment: 0.3 to 0.6 IU/mL. For treatment of DVT or Pulmonary Embolism: 0.3 to 0.7 IU/mL. Blood Venous blood specimen / Unknown Venipuncture / Unknown 01/12/2024 5:15 AM EST 01/12/2024 5:28 AM EST Geo Barroso MD LAB BLOOD ORDERABLES Final Resul t Performing Organization Address City/[facility] Co de Phone Number LABORATORY [facility] [address] [place] [address] * PHOSPHORUS (01/12/2024 5:15 AM EST) Pathologist [facility] Phosphorus 3.5 2.5 - 4.8 mg/dL 01/12/2024 5:58 AM EST LABORATORY C Blood Venous blood specimen / Unknown Venipuncture / Unknown 01/12/2024 5:15 AM EST 01/12/2024 5:28 AM EST Geo Barroso MD LAB BLOOD ORDERABLES Final Resul t LABORATORY [facility] [address] [place] [address] * MAGNESIUM (01/12/2024 5:15 AM EST) Pathologist [facility] Magnesium 1.9 1.5 - 2.6 mg/dL 01/12/2024 5:58 AM EST LAB[facility]ATORY [facility] Blood Venous blood specimen / Unknown Venipuncture / Unknown 01/12/2024 5:15 AM EST 01/12/2024 5:28 AM EST Geo Barroso MD LAB BLOOD ORDERABLES Final Resul t LABORATORY [facility] [address] [place] [address] * (ABNORMAL) BASIC METABOLIC PANEL (01/12/2024 5:15 AM EST) Pathologist [facility] BUN 16 6 - 20 mg/dL 01/12/2024 5:58 AM EST LABORATORY [facility] CREATININE 0.8 0.6 - 1.2 mg/dL 01/12/2024 5:58 AM EST [facility] EGFR 87 >=60 mL/min 01/12/2024 5:58 AM EST [facility] Comment:eGFR is calculated b ased on the CKD-EPI 2020 equation. SODIUM 135 135 - 146 mmol/L 01/12/2024 5:58 AM EST [facility] POTASSIUM 4.2 3.5 - 5.1 mmol/L 01/12/2024 5:58 AM EST [facility] CHLORIDE 102 98 - 107 mmol/L 01/12/2024 5:58 AM EST LABORATORY C CO2 23 22 - 32 mmol/L 01/12/2024 5:58 AM EST LAB[facility]ORY [facility] ANION GAP 10 7 - 15 mmol/L 01/12/2024 5:58 AM EST LAB[facility] GLUCOSE 168(H) 70 - 120 mg/dL 01/12/2024 5:58 AM EST LAB[facility] CALCIUM 8.4 8.4 - 10.2 mg/dL 01/12/2024 5:58 AM EST LAB[facility] Blood Venous blood specimen / Unknown Venipuncture / Unknown 01/12/2024 5:15 AM EST 01/12/2024 5:28 AM EST Geo Barroso MD LAB BLOOD ORDERABLES Final Resul t Performing Organization Address [facility] de Phone Number LABORATORY [place] [address] [place] [address] * PT INR (01/12/2024 5:15 AM EST) Prothrombin Time 13.3 11.6 - 15.2 seconds 01/12/2024 5:44 AM EST LAB[facility]ATORY [facility] INR 1.0 0.8 - 1.2 01/12/2024 5:44 AM EST LAB[facility]ORY [facility] Blood Venous blood specimen / Unknown Venipuncture / Unknown 01/12/2024 5:15 AM EST 01/12/2024 5:28 AM EST Narrative LAB[facility]ATORY [facility] - 01/12/2024 5:44 AM EST Warfarin Therapy INR: 2.0-3.0 conventional anticoagulation INR: 2.5-3.5 high intensity anticoagulation us Geo Barroso MD LAB BLOOD ORDERABLES Final Resul t Performing Organization Address [facility] de Phone Number LABORATORY [facility] [address] [place] [address] * (ABNORMAL) CBC (01/12/2024 5:14 AM EST) WBC 6.74 4.00 - 10.80 K/uL 01/12/2024 5:41 AM EST [facility] RBC 3.15 4.50 - 5.25 M/uL 01/12/2024 5:41 AM EST [facility] HGB 8.8(L) 14.0 - 16.8 g/dL 01/12/2024 5:41 AM EST [facility] HCT 27.1(L) 40.0 - 48.4 % 01/12/2024 5:41 AM EST [facility] MCV 86.0 82.0 - 99.5 fL 01/12/2024 5:41 AM EST [facility] MCH 27.9 27.0 - 34.0 pg 01/12/2024 5:41 AM EST [facility] MCHC 32.5 32.0 - 36.0 g/dL 01/12/2024 5:41 AM EST [facility] RDW 14.1 11.5 - 15.5 % 01/12/2024 5:41 AM EST [facility] PLT 153 140 - 400 K/uL 01/12/2024 5:41 AM EST [facility] MPV 9.8 6.6 - 11.1 fL 01/12/2024 5:41 AM EST [facility] nRBCs 0 <=0 /100 WBCs 01/12/2024 5:41 AM EST [facility] Blood Venous blood specimen / Unknown Venipuncture / Unknown 01/12/2024 5:14 AM EST 01/12/2024 5:28 AM EST us Geo Barroso MD LAB BLOOD ORDERABLES Final Resul t Performing Organization Address City/State/[facility] Co de Phone Number LABORATORY [facility] [address] [place] [address] * (ABNORMAL) GLUCOSE METER, POINT OF CARE (01/11/2024 9:04 PM EST) [facility] GLUCOSE - POCT 187(H) 70 - 120 mg/dL 01/11/2024 9:10 PM EST Social Median Blood Whole blood specimen / Unknown 01/11/2024 9:04 PM EST 01/11/2024 9:10 PM EST us Aravdeep Monte Jhand MD LAB POINT OF CAR E TEST DOCKED DEVICE UNSOLICITED RESULTS Final Result [facility] [address] [place] [address] * (ABNORMAL) CBC (01/11/2024 4:32 PM EST) WBC 8.95 4.00 - 10.80 K/uL 01/11/2024 4:44 PM EST [facility] RBC 3.51 4.50 - 5.25 M/uL 01/11/2024 4:44 PM EST [facility] HGB 9.6(L) 14.0 - 16.8 g/dL 01/11/2024 4:44 PM EST [facility] HCT 30.9(L) 40.0 - 48.4 % 01/11/2024 4:44 PM EST [facility] MCV 88.0 82.0 - 99.5 fL 01/11/2024 4:44 PM EST [facility] MCH 27.4 27.0 - 34.0 pg 01/11/2024 4:44 PM EST [facility] MCHC 31.1 32.0 - 36.0 g/dL 01/11/2024 4:44 PM EST [facility] RDW 14.1 11.5 - 15.5 % 01/11/2024 4:44 PM EST [facility] PLT 182 140 - 400 K/uL 01/11/2024 4:44 PM EST [facility] MPV 9.6 6.6 - 11.1 fL 01/11/2024 4:44 PM EST [facility] nRBCs 0 <=0 /100 WBCs 01/11/2024 4:44 PM EST [facility] Blood Venous blood specimen / Unknown Venipuncture / Unknown 01/11/2024 4:32 PM EST 01/11/2024 4:36 PM EST us Marilu Lee DO LAB BLOOD ORDERABLES Final Result [facility] [address] [place] [address] * (ABNORMAL) GLUCOSE METER, POINT OF CARE (01/11/2024 4:29 PM EST) GLUCOSE - POCT 214(H) 70 - 120 mg/dL 01/12/2024 2:58 AM EST Social Median Blood Whole blood specimen / Unknown 01/11/2024 4:29 PM EST 01/12/2024 2:58 AM EST us Mayelin Kemp MD LAB POINT OF CAR E TEST DOCKED DEVICE UNSOLICITED RESULTS Final Result [facility] [address] [place] [address] * (ABNORMAL) GLUCOSE METER, POINT OF CARE (01/11/2024 11:22 AM EST) GLUCOSE - POCT 205(H) 70 - 120 mg/dL 01/12/2024 2:58 AM EST Social Median Blood Whole blood specimen / Unknown 01/11/2024 11:22 AM EST 01/12/2024 2:58 AM EST us Mayelin Kemp MD LAB POINT OF CAR E TEST DOCKED DEVICE UNSOLICITED RESULTS Final Result Performing Organization Address City/[facility]/ZIP Co de Phone Number [facility] [address] [place] [address] * (ABNORMAL) GLUCOSE METER, POINT OF CARE (01/11/2024 8:30 AM EST) GLUCOSE - POCT 157(H) 70 - 120 mg/dL 01/11/2024 8:33 AM EST Social Median Blood Whole blood specimen / Unknown 01/11/2024 8:30 AM EST 01/11/2024 8:33 AM EST us Mayelin Kemp MD LAB POINT OF CAR E TEST DOCKED DEVICE UNSOLICITED RESULTS Final Result [facility] [address] [place] [address] * (ABNORMAL) HEPARIN, UNFRACTIONATED (01/11/2024 4:42 AM EST) Heparin, Unfractionated 0.36(H) <0.10 IU/mL 01/11/2024 5:24 AM EST LAB[facility]ORY [facility] Comment: Unfractionated therapeutic ranges for Anti Xa activity: For Cardiac/Neurologic treatment: 0.3 to 0.6 IU/mL. For treatment of DVT or Pulmonary Embolism: 0.3 to 0.7 IU/mL. Blood Venous blood specimen / Unknown Venipuncture / Unknown 01/11/2024 4:42 AM EST 01/11/2024 4:58 AM EST us Geo Barroso MD LAB BLOOD ORDERABLES Final Resul t Performing Organization Address City/[facility] de Phone Number LABORATORY [place] [address] [place] [address] * PHOSPHORUS (01/11/2024 4:42 AM EST) Phosphorus 3.3 2.5 - 4.8 mg/dL 01/11/2024 5:30 AM EST LAB[facility]ORY [facility] Blood Venous blood specimen / Unknown Venipuncture / Unknown 01/11/2024 4:42 AM EST 01/11/2024 4:58 AM EST us Geo Barroso MD LAB BLOOD ORDERABLES Final Resul t LABORATORY [place] [address] [place] [address] * MAGNESIUM (01/11/2024 4:42 AM EST) Magnesium 2.1 1.5 - 2.6 mg/dL 01/11/2024 5:30 AM EST LAB[facility]ORY [facility] Blood Venous blood specimen / Unknown Venipuncture / Unknown 01/11/2024 4:42 AM EST 01/11/2024 4:58 AM EST us Geo Barroso MD LAB BLOOD ORDERABLES Final Resul t LABORATORY [facility] [address] [place] [address] * (ABNORMAL) BASIC METABOLIC PANEL (01/11/2024 4:42 AM EST) BUN 18 6 - 20 mg/dL 01/11/2024 5:30 AM EST [facility] CREATININE 0.8 0.6 - 1.2 mg/dL 01/11/2024 5:30 AM EST [facility] EGFR 88 >=60 mL/min 01/11/2024 5:30 AM EST [facility] Comment:eGFR is calculated b ased on the CKD-EPI 2020 equation. SODIUM 134(L) 135 - 146 mmol/L 01/11/2024 5:30 AM EST [facility] POTASSIUM 4.1 3.5 - 5.1 mmol/L 01/11/2024 5:30 AM EST [facility] CHLORIDE 101 98 - 107 mmol/L 01/11/2024 5:30 AM EST [facility] CO2 20(L) 22 - 32 mmol/L 01/11/2024 5:30 AM EST [facility] ANION GAP 13 7 - 15 mmol/L 01/11/2024 5:30 AM EST [facility] GLUCOSE 146(H) 70 - 120 mg/dL 01/11/2024 5:30 AM EST [facility] CALCIUM 8.4 8.4 - 10.2 mg/dL 01/11/2024 5:30 AM EST [facility] Blood Venous blood specimen / Unknown Venipuncture / Unknown 01/11/2024 4:42 AM EST 01/11/2024 4:58 AM EST Geo Barroso MD LAB BLOOD ORDERABLES Final Resul t LABORATORY [facility] [address] [place] [address] * PT INR (01/11/2024 4:42 AM EST) Prothrombin Time 13.4 11.6 - 15.2 seconds 01/11/2024 5:23 AM EST [facility] INR 1.0 0.8 - 1.2 01/11/2024 5:23 AM EST [facility] Blood Venous blood specimen / Unknown Venipuncture / Unknown 01/11/2024 4:42 AM EST 01/11/2024 4:58 AM EST Narrative [facility] - 01/11/2024 5:23 AM EST Warfarin Therapy INR: 2.0-3.0 conventional anticoagulation INR: 2.5-3.5 high intensity anticoagulation us Geo Barroso MD LAB BLOOD ORDERABLES Final Resul t [facility] [address] [place] [address] * (ABNORMAL) CBC (01/11/2024 4:42 AM EST) WBC 8.56 4.00 - 10.80 K/uL 01/11/2024 5:08 AM EST [facility] RBC 3.55 4.50 - 5.25 M/uL 01/11/2024 5:08 AM EST [facility] HGB 9.9(L) 14.0 - 16.8 g/dL 01/11/2024 5:08 AM EST [facility] HCT 30.5(L) 40.0 - 48.4 % 01/11/2024 5:08 AM EST [facility] MCV 85.9 82.0 - 99.5 fL 01/11/2024 5:08 AM EST [facility] MCH 27.9 27.0 - 34.0 pg 01/11/2024 5:08 AM EST [facility] MCHC 32.5 32.0 - 36.0 g/dL 01/11/2024 5:08 AM EST [facility] RDW 14.0 11.5 - 15.5 % 01/11/2024 5:08 AM EST [facility] PLT 159 140 - 400 K/uL 01/11/2024 5:08 AM EST [facility] MPV 9.9 6.6 - 11.1 fL 01/11/2024 5:08 AM EST [facility] nRBCs 0 <=0 /100 WBCs 01/11/2024 5:08 AM EST [facility] Blood Venous blood specimen / Unknown Venipuncture / Unknown 01/11/2024 4:42 AM EST 01/11/2024 4:58 AM EST Geo Barroso MD LAB BLOOD ORDERABLES Final Resul t LABORATORY [facility] [address] [place] [address] * (ABNORMAL) GLUCOSE METER, POINT OF CARE (01/10/2024 10:27 PM EST) [facility] GLUCOSE - POCT 201(H) 70 - 120 mg/dL 01/11/2024 1:19 AM EST [employer] [facility] Blood Whole blood specimen / Unknown 01/10/2024 10:27 PM EST 01/11/2024 1:19 AM EST Mayelin Kemp MD LAB POINT OF CAR E TEST DOCKED DEVICE UNSOLICITED RESULTS Final Result Performing Organization Address City/State/[facility] Co de Phone Number [facility] [address] [place] [address] * CTA TAVR GATED STUDY (01/10/2024 9:57 PM EST) Anatomical Region Laterality Modality Chest, Abdomen, Pelvis, Body Com puted Tomography 01/11/2024 6:53 AM EST Narrative 01/11/2024 6:51 AM EST EXAM: 1. CTA CHEST WITH CONTRAST 2. CTA ABDOMEN PELVIS WITH CONTRAST 3. CTA TAVR HISTORY: work up for possible TAVR, known , s/p cardiac arrest COMPARISON: Cardiac CT from 12/24/2023 TECHNIQUE: 1. CTA chest with intravenous contrast was performed. MIP images were obtained and reviewed. 2. CTA abdomen pelvis with intravenous contrast was performed. MIP images were obtained and reviewed. 3. CTA TAVR CONTRAST: 80 ml intravenously. FINDINGS: CTA CHEST: PULMONARY ARTERIES: Normal in size. No large central or segmental pulmonary embolism. AORTA: Aortic valve is trileaflet with severe annular calcifications. Total annular calcium score of 2049. Small eccentric sub valvular calcification extending from non coronary cusp into the LVOT. Maximum annular distension measured on 15% R-R. Measurements as follows: Annulus systole: 6.03 cm2 LVOT 4 mm below annular plane:6.12 cm2 SOV: 38.4 mm x 38.3 mm x 38.3 mm Right coronary ostia height from annulus: 19.5 mm Right STJ height from annulus: 24.1 mm Left coronary ostia height from annulus: 15.9 mm Left STJ height from annulus: 25.2 mm C-Arm angle: TRISTAN 8, CAU 22 Aortic root angle: 35.6 deg Sinotubular junction: 30.0 mm Diameter 40 mm above the annulus: 34.2 mm Max ascending aorta: 36.9 mm Carotid/axillo-subclavian arteries: 3 vessel aortic arch. Mild kinking of the axillo-subclavian junctions bilaterally as it crosses under the 1st rib. HEART: Top-normal in size. Moderate dilatation of the left atrial appendage. Concentric hypertrophy of the left ventricular myocardium. Mild mitral annular calcifications. No pericardial effusion. Severe trivessel coronary artery atherosclerosis.. MEDIASTINUM/LIONEL: Prominent mediastinal and hilar lymph nodes, likely reactive. CHEST WALL/AXILLA: Unremarkable. LUNGS/PLEURA: Right basilar atelectasis with small right pleural effusion. Biapical pleuroparenchymal scarring. 6 mm ground-glass opacity in the posterior left upper lobe (series 9, image 82). Paraspinal atelectasis with reactive changes at the left lung base. 5 mm subpleural nodule in the right upper lobe please. Mild bronchiectasis at the lung bases. Central airways are clear. No pleural effusion or pneumothorax. CTA ABDOMEN PELVIS: LIVER: Unremarkable. GALLBLADDER/BILE DUCTS: Cholelithiasis. PANCREAS: Unremarkable. GI TRACT: Scattered colonic diverticula. No evidence of bowel obstruction. SPLEEN: Unremarkable. LYMPH NODES: No lymphadenopathy. ADRENAL GLANDS: Unremarkable. KIDNEYS/URETERS: Simple appearing right renal cortical cysts. No hydronephrosis. URINARY BLADDER: Celeste catheter in place with marked concentric bladder wall thickening. REPRODUCTIVE ORGANS: Prostate is unremarkable. VASCULATURE: Infrarenal abdominal aortic aneurysm measuring up to 23 mm. 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 SMA, renal arteries and LESLY are patent. Moderate atherosclerotic calcifications with a small focal dissection flap with thrombosed false lumen. Average min diameter abdominal aorta: 14.8 mm Average max diameter abdominal aorta: 23.0 mm Min left iliofemoral diameter: 9.2 mm Min right iliofemoral diameter: 8.65 mm Cannulation zone calcifications: Mild MISCELLANEOUS: No free fluid or free air. Postprocedural changes in the inguinal region. MUSCULOSKELETAL: Polyarticular degenerative changes. No acute osseous abnormalities. IMPRESSION: Aortic valve is trileaflet with severe annular calcifications. Total annular calcium score of 2049. Small eccentric sub valvular calcification extending from non coronary cusp into the LVOT. Maximum annular distension measured on 15% R-R. Annulus measures 6.03 cm2. LVOT 4 mm below annular plane measures6.12 cm2. Minimal coronary artery height from the annulus approximately 16 mm on the left. Severe trivessel coronary artery atherosclerosis. Cardiomegaly with concentric hypertrophy of the left ventricular myocardium. No significant iliofemoral atherosclerosis. Minimal luminal diameter of 8.6 mm on the right. Mild tortuosity. 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 Infrarenal abdominal aortic aneurysm measuring up to 23 mm. Procedure Note Manuel Bell MD - 01/11/2024 EXAM: 1. CTA CHEST WITH CONTRAST 2. CTA ABDOMEN PELVIS WITH CONTRAST 3. CTA TAVR HISTORY: work up for possible TAVR, known , s/p cardiac arrest COMPARISON: Cardiac CT from 12/24/2023 TECHNIQUE: 1. CTA chest with intravenous contrast was performed. MIP images wereobtained and reviewed. 2. CTA abdomen pelvis with intravenous contrast was performed. MIP imageswere obtained and reviewed. 3. CTA TAVR CONTRAST: 80 ml intravenously. FINDINGS: CTA CHEST: PULMONARY ARTERIES: Normal in size. No large central or segmentalpulmonary embolism. AORTA: Aortic valve is trileaflet with severe annular calcifications.Total annular calcium score of 2049. Small eccentric sub valvularcalcification extending from non coronary cusp into the LVOT. Maximum annular distension measured on 15% R-R. Measurements as follows: Annulus systole: 6.03 cm2 LVOT 4 mm below annular plane:6.12 cm2 SOV: 38.4 mm x 38.3 mm x 38.3 mm Right coronary ostia height from annulus: 19.5 mm Right STJ height from annulus: 24.1 mm Left coronary ostia height from annulus: 15.9 mm Left STJ height from annulus: 25.2 mm C-Arm angle: TRISTAN 8, CAU 22 Aortic root angle: 35.6 deg Sinotubular junction: 30.0 mm Diameter 40 mm above the annulus: 34.2 mm Max ascending aorta: 36.9 mm Carotid/axillo-subclavian arteries: 3 vessel aortic arch. Mild kinking ofthe axillo-subclavian junctions bilaterally as it crosses under the 1strib. HEART: Top-normal in size. Moderate dilatation of the left atrialappendage. Concentric hypertrophy of the left ventricular myocardium.Mild mitral annular calcifications. No pericardial effusion. Severetrivessel coronary artery atherosclerosis.. MEDIASTINUM/LIONEL: Prominent mediastinal and hilar lymph nodes, likelyreactive. CHEST WALL/AXILLA: Unremarkable. LUNGS/PLEURA: Right basilar atelectasis with small right pleural effusion.Biapical pleuroparenchymal scarring. 6 mm ground-glass opacity in theposterior left upper lobe (series 9, image 82). Paraspinal atelectasiswith reactive changes at the left lung base. 5 mm subpleural nodule inthe right upper lobe please. Mild bronchiectasis at the lung bases.Central airways are clear. No pleural effusion or pneumothorax. CTA ABDOMEN PELVIS: LIVER: Unremarkable. GALLBLADDER/BILE DUCTS: Cholelithiasis. PANCREAS: Unremarkable. GI TRACT: Scattered colonic diverticula. No evidence of bowelobstruction. SPLEEN: Unremarkable. LYMPH NODES: No lymphadenopathy. ADRENAL GLANDS: Unremarkable. KIDNEYS/URETERS: Simple appearing right renal cortical cysts. Nohydronephrosis. URINARY BLADDER: Celeste catheter in place with marked concentric bladderwall thickening. REPRODUCTIVE ORGANS: Prostate is unremarkable. 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 SMA, renal arteries andIMA are patent. Moderate atherosclerotic calcifications with a smallfocal dissection flap with thrombosed false lumen. Average min diameter abdominal aorta: 14.8 mm Average max diameter abdominal aorta: 23.0 mm Min left iliofemoral diameter: 9.2 mm Min right iliofemoral diameter: 8.65 mm Cannulation zone calcifications: Mild MISCELLANEOUS: No free fluid or free air. Postprocedural changes in theinguinal region. MUSCULOSKELETAL: Polyarticular degenerative changes. No acute osseousabnormalities. IMPRESSION: Aortic valve is trileaflet with severe annular calcifications. Totalannular calcium score of 9. Small eccentric sub valvular calcificationextending from non coronary cusp into the LVOT. Maximum annular distension measured on 15% R-R. Annulus measures 6.03cm2. LVOT 4 mm below annular plane measures6.12 cm2. Minimal coronary artery height from the annulus approximately 16 mm on theleft. Severe trivessel coronary artery atherosclerosis. Cardiomegaly with concentric hypertrophy of the left ventricularmyocardium. No significant iliofemoral atherosclerosis. Minimal luminal diameter of8.6 mm on the right. Mild tortuosity. 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 Infrarenal abdominal aortic aneurysm measuring upto 23 mm. Marilu Lee DO RAD CT Final Result * LACTATE (01/10/2024 7:57 PM EST) [facility] Lactate 1.3 0.4 - 2.0 mmol/L 01/10/2024 8:19 PM EST LAB[facility]ATORY [facility] Blood Venous blood specimen / Unknown Venipuncture / Unknown 01/10/2024 7:57 PM EST 01/10/2024 8:01 PM EST Marilu Lee DO LAB BLOOD ORDERABLES Final Result LABORATORY [facility] [address] [place] [address] * (ABNORMAL) CBC (01/10/2024 7:57 PM EST) Pathologist [facility] WBC 10.00 4.00 - 10.80 K/uL 01/10/2024 8:10 PM EST LABORATORY [facility] RBC 3.78 4.50 - 5.25 M/uL 01/10/2024 8:10 PM EST [facility] HGB 10.4(L) 14.0 - 16.8 g/dL 01/10/2024 8:10 PM EST [facility] HCT 33.3(L) 40.0 - 48.4 % 01/10/2024 8:10 PM EST LABORATORY [facility] MCV 88.1 82.0 - 99.5 fL 01/10/2024 8:10 PM EST LABORATORY [facility] MCH 27.5 27.0 - 34.0 pg 01/10/2024 8:10 PM EST LABORATORY [facility] MCHC 31.2 32.0 - 36.0 g/dL 01/10/2024 8:10 PM EST LAB[facility]ATORY [facility] RDW 14.1 11.5 - 15.5 % 01/10/2024 8:10 PM EST LAB[facility]ATORY [facility] PLT 175 140 - 400 K/uL 01/10/2024 8:10 PM EST LAB[facility]ATORY [facility] MPV 9.9 6.6 - 11.1 fL 01/10/2024 8:10 PM EST LAB[facility]ATORY [facility] nRBCs 0 <=0 /100 WBCs 01/10/2024 8:10 PM EST LAB[facility]ATORY [facility] Blood Venous blood specimen / Unknown Venipuncture / Unknown 01/10/2024 7:57 PM EST 01/10/2024 8:01 PM EST Marilu Lee DO LAB BLOOD ORDERABLES Final Result LABORATORY [facility] [address] [place] [address] * (ABNORMAL) HEPARIN, UNFRACTIONATED (01/10/2024 6:16 PM EST) [facility] Heparin, Unfractionated 0.47(H) <0.10 IU/mL 01/10/2024 6:44 PM EST LAB[facility]ATORY [facility] Comment: Unfractionated therapeutic ranges for Anti Xa activity: For Cardiac/Neurologic treatment: 0.3 to 0.6 IU/mL. For treatment of DVT or Pulmonary Embolism: 0.3 to 0.7 IU/mL. Blood Venous blood specimen / Unknown Venipuncture / Unknown 01/10/2024 6:16 PM EST 01/10/2024 6:30 PM EST Geo Barroso MD LAB BLOOD ORDERABLES Final Resul t LABORATORY [facility] [address] [place] [address] * (ABNORMAL) GLUCOSE METER, POINT OF CARE (01/10/2024 3:52 PM EST) GLUCOSE - POCT 172(H) 70 - 120 mg/dL 01/10/2024 9:26 PM EST Social Median Blood Whole blood specimen / Unknown 01/10/2024 3:52 PM EST 01/10/2024 9:25 PM EST us Mayelin Kemp MD LAB POINT OF CAR E TEST DOCKED DEVICE UNSOLICITED RESULTS Final Result [facility] [address] [place] [address] * ECHO, COMPLETE (2D), TRANS-THORACIC (01/10/2024 1:36 PM EST) Pathologist [facility] LEFT VENTRICULAR EJECTION FRACTION 30 % [facility] 01/10/2024 12:5 9 PM EST us Johnathan Brown MD ECHOCARDIOLOGY F inal Result [facility] * (ABNORMAL) GLUCOSE METER, POINT OF CARE (01/10/2024 11:56 AM EST) GLUCOSE - POCT 128(H) 70 - 120 mg/dL 01/10/2024 11:19 PM EST Social Median Blood Whole blood specimen / Unknown 01/10/2024 11:56 AM EST 01/10/2024 11:19 PM EST us Mayelin Kemp MD LAB POINT OF CAR E TEST DOCKED DEVICE UNSOLICITED RESULTS Final Result [facility] [address] [place] [address] * GLUCOSE METER, POINT OF CARE (01/10/2024 7:56 AM EST) GLUCOSE - POCT 119 70 - 120 mg/dL 01/10/2024 11:19 PM EST [facility] Blood Whole blood specimen / Unknown 01/10/2024 7:56 AM EST 01/10/2024 11:19 PM EST Mayelin Kemp MD LAB POINT OF CAR E TEST DOCKED DEVICE UNSOLICITED RESULTS Final Result Performing Organization Address City/[facility]/ZIP Co de Phone Number [facility] [address] [place] [address] * (ABNORMAL) HEPARIN, UNFRACTIONATED (01/10/2024 4:46 AM EST) Heparin, Unfractionated 0.34(H) <0.10 IU/mL 01/10/2024 6:03 AM EST LABORATORY [facility] Comment: Unfractionated therapeutic ranges for Anti Xa activity: For Cardiac/Neurologic treatment: 0.3 to 0.6 IU/mL. For treatment of DVT or Pulmonary Embolism: 0.3 to 0.7 IU/mL. Blood Venous blood specimen / Unknown Venipuncture / Unknown 01/10/2024 4:46 AM EST 01/10/2024 5:02 AM EST Geo Barroso MD LAB BLOOD ORDERABLES Final Resul t Performing Organization Address City/[facility] Co de Phone Number LABORATORY [facility] [address] [place] [address] * PHOSPHORUS (01/10/2024 4:46 AM EST) Pathologist [facility] Phosphorus 3.2 2.5 - 4.8 mg/dL 01/10/2024 5:40 AM EST LAB[facility]ATORY [facility] Blood Venous blood specimen / Unknown Venipuncture / Unknown 01/10/2024 4:46 AM EST 01/10/2024 5:01 AM EST Geo Barroso MD LAB BLOOD ORDERABLES Final Resul t Performing Organization Address City/[facility]/ZIP Co de Phone Number LABORATORY [facility] [address] [place] [address] * MAGNESIUM (01/10/2024 4:46 AM EST) Magnesium 1.8 1.5 - 2.6 mg/dL 01/10/2024 5:40 AM EST [facility] Blood Venous blood specimen / Unknown Venipuncture / Unknown 01/10/2024 4:46 AM EST 01/10/2024 5:01 AM EST Geo Barroso MD LAB BLOOD ORDERABLES Final Resul t [facility] [address] [place] [address] * (ABNORMAL) BASIC METABOLIC PANEL (01/10/2024 4:46 AM EST) BUN 18 6 - 20 mg/dL 01/10/2024 5:40 AM EST [facility] CREATININE 0.8 0.6 - 1.2 mg/dL 01/10/2024 5:40 AM EST [facility] EGFR 86 >=60 mL/min 01/10/2024 5:40 AM EST [facility] Comment:eGFR is calculated b ased on the CKD-EPI 2020 equation. SODIUM 134(L) 135 - 146 mmol/L 01/10/2024 5:40 AM EST [facility] POTASSIUM 4.1 3.5 - 5.1 mmol/L 01/10/2024 5:40 AM EST [facility] CHLORIDE 101 98 - 107 mmol/L 01/10/2024 5:40 AM EST [facility] CO2 21(L) 22 - 32 mmol/L 01/10/2024 5:40 AM EST [facility] ANION GAP 12 7 - 15 mmol/L 01/10/2024 5:40 AM EST [facility] GLUCOSE 139(H) 70 - 120 mg/dL 01/10/2024 5:40 AM EST [facility] CALCIUM 8.8 8.4 - 10.2 mg/dL 01/10/2024 5:40 AM EST [facility] Blood Venous blood specimen / Unknown Venipuncture / Unknown 01/10/2024 4:46 AM EST 01/10/2024 5:01 AM EST Geo Barroso MD LAB BLOOD ORDERABLES Final Resul t Performing Organization Address [facility]/ZIP Co de Phone Number LABORATORY [facility] [address] [place] [address] * PT INR (01/10/2024 4:46 AM EST) Prothrombin Time 13.6 11.6 - 15.2 seconds 01/10/2024 5:20 AM EST [facility] INR 1.0 0.8 - 1.2 01/10/2024 5:20 AM EST [facility] Blood Venous blood specimen / Unknown Venipuncture / Unknown 01/10/2024 4:46 AM EST 01/10/2024 5:02 AM EST Narrative [facility] - 01/10/2024 5:20 AM EST Warfarin Therapy INR: 2.0-3.0 conventional anticoagulation INR: 2.5-3.5 high intensity anticoagulation Geo Barroso MD LAB BLOOD ORDERABLES Final Resul t Performing Organization Address [facility] de Phone Number LABORATORY [facility] [address] [place] [address] * (ABNORMAL) CBC (01/10/2024 4:46 AM EST) Pathologist [facility] WBC 8.69 4.00 - 10.80 K/uL 01/10/2024 5:11 AM EST [facility] RBC 4.14 4.50 - 5.25 M/uL 01/10/2024 5:11 AM EST [facility] HGB 11.5(L) 14.0 - 16.8 g/dL 01/10/2024 5:11 AM EST [facility] HCT 35.9(L) 40.0 - 48.4 % 01/10/2024 5:11 AM EST [facility] MCV 86.7 82.0 - 99.5 fL 01/10/2024 5:11 AM EST [facility] MCH 27.8 27.0 - 34.0 pg 01/10/2024 5:11 AM EST [facility] MCHC 32.0 32.0 - 36.0 g/dL 01/10/2024 5:11 AM EST LAB[facility]ATORY [facility] RDW 13.8 11.5 - 15.5 % 01/10/2024 5:11 AM EST LABORATORY [facility] PLT 142 140 - 400 K/uL 01/10/2024 5:11 AM EST LABORATORY [facility] MPV 9.7 6.6 - 11.1 fL 01/10/2024 5:11 AM EST LAB[facility]ATORY [facility] nRBCs 0 <=0 /100 WBCs 01/10/2024 5:11 AM EST LAB[facility]ATORY [facility] Blood Venous blood specimen / Unknown Venipuncture / Unknown 01/10/2024 4:46 AM EST 01/10/2024 5:01 AM EST us Geo Barroso MD LAB BLOOD ORDERABLES Final Resul t LABORATORY [facility] [address] [place] [address] * CARDIAC CATHETERIZATION REPORT (01/10/2024) DATE OF PROCEDURE 01/10/2024 [facility] Dilshad Goldsmith DO [facility] CONCLUSIONS * Severe multivessel CAD: -LAD diffusely diseased, up to 50% stenosis in the mid LAD and up to 80% stenosis just distal to D3. -Prox LCX 70% stenosis -Mid RCA 70% stenosis [facility] PROCEDURES Coronary Angiography 0:23-0:37 hours:minutes Sedation [facility] TOTAL CONTRAST VOLUME 45 ml [facility] TOTAL RADIATION 0.22 Gy [facility] COMPLICATIONS No complication None [facility] 01/10/2024 01/10/2024 11: 01 AM EST us Mayelin Kemp MD CARD CATH Final Re sult [facility] * (ABNORMAL) GLUCOSE METER, POINT OF CARE (01/09/2024 10:47 PM EST) GLUCOSE - POCT 144(H) 70 - 120 mg/dL 01/09/2024 11:05 PM EST Social Median Blood Whole blood specimen / Unknown 01/09/2024 10:47 PM EST 01/09/2024 11:05 PM EST Mayelin Kemp MD LAB POINT OF CAR E TEST DOCKED DEVICE UNSOLICITED RESULTS Final Result Performing Organization Address [facility]/ZIP Co de Phone Number [facility] [address] [place] [address] * (ABNORMAL) HEPARIN, UNFRACTIONATED (01/09/2024 7:17 PM EST) Pathologist [facility] Heparin, Unfractionated 0.31(H) <0.10 IU/mL 01/09/2024 7:38 PM EST LABORATORY [facility] Comment: Unfractionated therapeutic ranges for Anti Xa activity: For Cardiac/Neurologic treatment: 0.3 to 0.6 IU/mL. For treatment of DVT or Pulmonary Embolism: 0.3 to 0.7 IU/mL. Blood Venous blood specimen / Unknown Venipuncture / Unknown 01/09/2024 7:17 PM EST 01/09/2024 7:20 PM EST Geo Barroso MD LAB BLOOD ORDERABLES Final Resul t Performing Organization Address [facility] Co de Phone Number [facility] [address] [place] [address] * (ABNORMAL) GLUCOSE METER, POINT OF CARE (01/09/2024 4:37 PM EST) [facility] GLUCOSE - POCT 158(H) 70 - 120 mg/dL 01/09/2024 4:40 PM EST [facility] Here@ [employer] [facility] Blood Whole blood specimen / Unknown 01/09/2024 4:37 PM EST 01/09/2024 4:40 PM EST Bradly Miguel MD LAB POINT OF CARE TE ST DOCKED DEVICE UNSOLICITED RESULTS Final Result Performing Organization Address City/[facility]/ZIP Co de Phone Number [facility] [address] [place] [address] * (ABNORMAL) GLUCOSE METER, POINT OF CARE (01/09/2024 11:09 AM EST) GLUCOSE - POCT 145(H) 70 - 120 mg/dL 01/09/2024 11:12 AM EST [facility] Blood Whole blood specimen / Unknown 01/09/2024 11:09 AM EST 01/09/2024 11:12 AM EST Bradly Miguel MD LAB POINT OF CARE TE ST DOCKED DEVICE UNSOLICITED RESULTS Final Result [facility] [address] [place] [address] * (ABNORMAL) HEPARIN, UNFRACTIONATED (01/09/2024 11:05 AM EST) Pathologist [facility] Heparin, Unfractionated 0.41(H) <0.10 IU/mL 01/09/2024 11:56 AM EST LABORATORY [facility] Comment: Unfractionated therapeutic ranges for Anti Xa activity: For Cardiac/Neurologic treatment: 0.3 to 0.6 IU/mL. For treatment of DVT or Pulmonary Embolism: 0.3 to 0.7 IU/mL. Blood Venous blood specimen / Unknown Venipuncture / Unknown 01/09/2024 11:05 AM EST 01/09/2024 11:17 AM EST Result [facility] Geo Barroso MD LAB BLOOD ORDERABLES Final Resul t LABORATORY [facility] [address] [place] [address] * TSH WITH FREE T4 IF INDICATED (01/09/2024 4:36 AM EST) Pathologist [facility] TSH 0.93 0.27 - 4.20 uIU/mL 01/09/2024 6:08 AM EST LABORATORY [facility] Blood Venous blood specimen / Unknown Venipuncture / Unknown 01/09/2024 4:36 AM EST 01/09/2024 4:42 AM EST Geo Barroso MD LAB BLOOD ORDERABLES Final Resul t Performing Organization Address City/[facility] Co de Phone Number LABORATORY [facility] [address] [place] [address] * (ABNORMAL) HEPARIN, UNFRACTIONATED (01/09/2024 4:36 AM EST) Heparin, Unfractionated 0.19(H) <0.10 IU/mL 01/09/2024 5:05 AM EST LAB[facility]ATORY [facility] Comment: Unfractionated therapeutic ranges for Anti Xa activity: For Cardiac/Neurologic treatment: 0.3 to 0.6 IU/mL. For treatment of DVT or Pulmonary Embolism: 0.3 to 0.7 IU/mL. Blood Venous blood specimen / Unknown Venipuncture / Unknown 01/09/2024 4:36 AM EST 01/09/2024 4:42 AM EST Geo Barroso MD LAB BLOOD ORDERABLES Final Resul t Performing Organization Address [facility] Co de Phone Number LABORATORY [facility] [address] [place] [address] * (ABNORMAL) TROPONIN T, HIGH SENSITIVITY (01/09/2024 4:36 AM EST) Pathologist [facility] Troponin T, High Sensitivity 56(H) <=22 ng/L 01/09/2024 5:11 AM EST LAB[facility]ATORY [facility] Blood Venous blood specimen / Unknown Venipuncture / Unknown 01/09/2024 4:36 AM EST 01/09/2024 4:42 AM EST Geo Barroso MD LAB BLOOD ORDERABLES Final Resul t Performing Organization Address City/[facility] Co de Phone Number LABORATORY [facility] [address] [place] [address] * PHOSPHORUS (01/09/2024 4:36 AM EST) Phosphorus 3.8 2.5 - 4.8 mg/dL 01/09/2024 5:11 AM EST LAB[facility]ATORY [facility] Blood Venous blood specimen / Unknown Venipuncture / Unknown 01/09/2024 4:36 AM EST 01/09/2024 4:42 AM EST us Geo Barroso MD LAB BLOOD ORDERABLES Final Resul t Performing Organization Address City/[facility]/ZIP Co de Phone Number LABORATORY [facility] [address] [place] [address] * MAGNESIUM (01/09/2024 4:36 AM EST) Magnesium 2.0 1.5 - 2.6 mg/dL 01/09/2024 5:11 AM EST [facility] Blood Venous blood specimen / Unknown Venipuncture / Unknown 01/09/2024 4:36 AM EST 01/09/2024 4:42 AM EST us Geo Barroso MD LAB BLOOD ORDERABLES Final Resul t Performing Organization Address [facility] de Phone Number LABORATORY [facility] [address] [place] [address] * (ABNORMAL) BASIC METABOLIC PANEL (01/09/2024 4:36 AM EST) BUN 13 6 - 20 mg/dL 01/09/2024 5:11 AM EST [facility] CREATININE 0.7 0.6 - 1.2 mg/dL 01/09/2024 5:11 AM EST [facility] EGFR >90 >=60 mL/min 01/09/2024 5:11 AM EST [facility] Comment:eGFR is calculated b ased on the CKD-EPI 2020 equation. SODIUM 143 135 - 146 mmol/L 01/09/2024 5:11 AM EST [facility] POTASSIUM 3.9 3.5 - 5.1 mmol/L 01/09/2024 5:11 AM EST [facility] CHLORIDE 106 98 - 107 mmol/L 01/09/2024 5:11 AM EST [facility] CO2 20(L) 22 - 32 mmol/L 01/09/2024 5:11 AM EST [facility] ANION GAP 17(H) 7 - 15 mmol/L 01/09/2024 5:11 AM EST [facility] GLUCOSE 116 70 - 120 mg/dL 01/09/2024 5:11 AM EST [facility] CALCIUM 8.5 8.4 - 10.2 mg/dL 01/09/2024 5:11 AM EST [facility] Blood Venous blood specimen / Unknown Venipuncture / Unknown 01/09/2024 4:36 AM EST 01/09/2024 4:42 AM EST Geo Barroso MD LAB BLOOD ORDERABLES Final Resul t Performing Organization Address [facility] de Phone Number LABORATORY [facility] [address] [place] [address] * PT INR (01/09/2024 4:36 AM EST) Prothrombin Time 14.2 11.6 - 15.2 seconds 01/09/2024 5:04 AM EST [facility] INR 1.1 0.8 - 1.2 01/09/2024 5:04 AM EST [facility] Blood Venous blood specimen / Unknown Venipuncture / Unknown 01/09/2024 4:36 AM EST 01/09/2024 4:42 AM EST Narrative [facility] - 01/09/2024 5:04 AM EST Warfarin Therapy INR: 2.0-3.0 conventional anticoagulation INR: 2.5-3.5 high intensity anticoagulation Geo Barroso MD LAB BLOOD ORDERABLES Final Resul t Performing Organization Address [facility] de Phone Number LABORATORY [facility] [address] [place] [address] * (ABNORMAL) CBC (01/09/2024 4:36 AM EST) WBC 8.08 4.00 - 10.80 K/uL 01/09/2024 4:53 AM EST [facility] RBC 4.38 4.50 - 5.25 M/uL 01/09/2024 4:53 AM EST [facility] HGB 12.1(L) 14.0 - 16.8 g/dL 01/09/2024 4:53 AM EST [facility] HCT 37.9(L) 40.0 - 48.4 % 01/09/2024 4:53 AM EST [facility] MCV 86.5 82.0 - 99.5 fL 01/09/2024 4:53 AM EST [facility] MCH 27.6 27.0 - 34.0 pg 01/09/2024 4:53 AM EST [facility] MCHC 31.9 32.0 - 36.0 g/dL 01/09/2024 4:53 AM EST [facility] RDW 13.9 11.5 - 15.5 % 01/09/2024 4:53 AM EST [facility] PLT 142 140 - 400 K/uL 01/09/2024 4:53 AM EST [facility] MPV 9.9 6.6 - 11.1 fL 01/09/2024 4:53 AM EST [facility] nRBCs 0 <=0 /100 WBCs 01/09/2024 4:53 AM EST [facility] Blood Venous blood specimen / Unknown Venipuncture / Unknown 01/09/2024 4:36 AM EST 01/09/2024 4:42 AM EST us Geo Barroso MD LAB BLOOD ORDERABLES Final Resul t LABORATORY [facility] [address] [place] [address] * LACTATE (01/09/2024 12:47 AM EST) Lactate 0.7 0.4 - 2.0 mmol/L 01/09/2024 1:58 AM EST [facility] Blood Venous blood specimen / Unknown Venipuncture / Unknown 01/09/2024 12:47 AM EST 01/09/2024 12:51 AM EST Jayce Nelson DO LAB BLOOD ORDERABLES Fi nal Result LABORATORY [facility] [address] [place] [address] * (ABNORMAL) HEMOGLOBIN A1C (01/08/2024 10:44 PM EST) Hemoglobin A1C 7.1(H) 4.0 - 5.6 % 01/09/2024 12:27 AM EST [facility] Comment:The use of HbA1c to monitor glycemic status is based on normal hemoglobin and HbA composition. This test should not be used in patients with abnormal hemoglobin that affects the half life of the red blood cell or the in vivo glycation rates. Estimated Average Glucose 157(H) <126 mg/dL 01/09/2024 12:27 AM EST LAB[facility]ORY [facility] Blood Arterial blood specimen / Unknown Arterial Line / Unknown 01/08/2024 10:44 PM EST 01/08/2024 10:47 PM EST Geo Barroso MD LAB BLOOD ORDERABLES Final Resul t Performing Organization Address City/[facility]/ZIP Co de Phone Number LABORATORY [facility] [address] [place] [address] * (ABNORMAL) TROPONIN T, HIGH SENSITIVITY (01/08/2024 10:44 PM EST) Troponin T, High Sensitivity 59(H) <=22 ng/L 01/09/2024 12:09 AM EST [facility]ORY [facility] Blood Arterial blood specimen / Unknown Arterial Line / Unknown 01/08/2024 10:44 PM EST 01/08/2024 10:47 PM EST Jayce Nelson DO LAB BLOOD ORDERABLES Fi nal Result Performing Organization Address City/[facility]/ZIP Co de Phone Number LABORATORY [place] [address] [place] [address] * LIPID PANEL WITH DIRECT LDL IF TG IS HIGH (01/08/2024 10:44 PM EST) Triglycerides 102 <=174 mg/dL 01/09/2024 12:09 AM EST [facility] Comment: Triglyceride Reference Ranges (mg/dL): <150 Acceptable 150-174 Borderline high 175-499 High >=500 Very high Cholesterol 107 <200 mg/dL 01/09/2024 12:09 AM EST [facility] Comment: Total Cholesterol Reference Ranges (mg/dL): <200 Desirable 200-239 Borderline high >=240 High HDL Cholesterol 41 >39 mg/dL 12:09 AM EST LAB[facility]ORY [facility] Comment: HDL Cholesterol Reference Ranges (mg/dL): >=60 High (Desirable) <50 Low (Undesirable) For Females <40 Low (Undesirable) For Males Non-HDL Cholesterol 66 <=159 mg/dL 01/09/2024 12:09 AM EST LAB[facility]ORY [facility] Comment: Non-HDL Cholesterol Reference Range (mg/dL): <100 Target level for high risk ASCVD patient <130 Optimal for general population 130-159 Near optimal for general population 160-189 Borderline High 190-219 High >=220 Very High LDL Cholesterol 46 <=129 mg/dL 01/09/2024 12:09 AM EST LAB[facility]ORY [facility] Comment: LDL Cholesterol Reference Ranges (mg/dL): <70 Target level for high risk ASCVD patient <100 Optimal for general population 100-129 Near optimal for general population 130-159 Borderline high 160-189 High >=190 Very high Blood Arterial blood specimen / Unknown Arterial Line / Unknown 01/08/2024 10:44 PM EST 01/08/2024 10:47 PM EST Geo Barroso MD LAB BLOOD ORDERABLES Final Resul t Performing Organization Address City/[facility]/ZIP Co de Phone Number LABORATORY [place] [facility] [address] [place] [address] * PHOSPHORUS (01/08/2024 10:44 PM EST) Phosphorus 4.0 2.5 - 4.8 mg/dL 01/08/2024 11:35 PM EST [facility]ORY [facility] Blood Arterial blood specimen / Unknown Arterial Line / Unknown 01/08/2024 10:44 PM EST 01/08/2024 10:47 PM EST Geo Barroso MD LAB BLOOD ORDERABLES Final Resul t LABORATORY [facility] [address] [place] [address] * MAGNESIUM (01/08/2024 10:44 PM EST) Magnesium 2.0 1.5 - 2.6 mg/dL 01/08/2024 11:35 PM EST [facility] Blood Arterial blood specimen / Unknown Arterial Line / Unknown 01/08/2024 10:44 PM EST 01/08/2024 10:47 PM EST Geo Barroso MD LAB BLOOD ORDERABLES Final Resul t [facility] [address] [place] [address] * (ABNORMAL) BASIC METABOLIC PANEL (01/08/2024 10:44 PM EST) BUN 14 6 - 20 mg/dL 01/08/2024 11:35 PM EST [facility] CREATININE 0.7 0.6 - 1.2 mg/dL 01/08/2024 11:35 PM EST [facility] EGFR 90 >=60 mL/min 01/08/2024 11:35 PM EST [facility] Comment:eGFR is calculated b ased on the CKD-EPI 2020 equation. SODIUM 139 135 - 146 mmol/L 01/08/2024 11:35 PM EST [facility] POTASSIUM 4.1 3.5 - 5.1 mmol/L 01/08/2024 11:35 PM EST [facility] CHLORIDE 103 98 - 107 mmol/L 01/08/2024 11:35 PM EST [facility] CO2 19(L) 22 - 32 mmol/L 01/08/2024 11:35 PM EST [facility] ANION GAP 17(H) 7 - 15 mmol/L 01/08/2024 11:35 PM EST [facility] GLUCOSE 150(H) 70 - 120 mg/dL 01/08/2024 11:35 PM EST [facility] CALCIUM 8.5 8.4 - 10.2 mg/dL 01/08/2024 11:35 PM EST [facility] Blood Arterial blood specimen / Unknown Arterial Line / Unknown 01/08/2024 10:44 PM EST 01/08/2024 10:47 PM EST Geo Barroso MD LAB BLOOD ORDERABLES Final Resul t LABORATORY [facility] [place] [address] [place] [address] * (ABNORMAL) HEPARIN, UNFRACTIONATED (01/08/2024 10:44 PM EST) Pathologist [facility] Heparin, Unfractionated 0.20(H) <0.10 IU/mL 01/08/2024 11:02 PM EST LABORATORY [facility] Comment: Unfractionated therapeutic ranges for Anti Xa activity: For Cardiac/Neurologic treatment: 0.3 to 0.6 IU/mL. For treatment of DVT or Pulmonary Embolism: 0.3 to 0.7 IU/mL. Blood Arterial blood specimen / Unknown Arterial Line / Unknown 01/08/2024 10:44 PM EST 01/08/2024 10:47 PM EST us Geo Barroso MD LAB BLOOD ORDERABLES Final Resul t Performing Organization Address [facility] Co de Phone Number LABORATORY [facility] [address] [place] [address] * (ABNORMAL) CBC (01/08/2024 10:44 PM EST) Pathologist [facility] WBC 9.23 4.00 - 10.80 K/uL 01/08/2024 10:59 PM EST LABORATORY [facility] RBC 4.48 4.50 - 5.25 M/uL 01/08/2024 10:59 PM EST LABORATORY [facility] HGB 12.7(L) 14.0 - 16.8 g/dL 01/08/2024 10:59 PM EST LABORATORY [facility] HCT 39.1(L) 40.0 - 48.4 % 01/08/2024 10:59 PM EST LAB[facility]ATORY [facility] MCV 87.3 82.0 - 99.5 fL 01/08/2024 10:59 PM EST LABORATORY [facility] MCH 28.3 27.0 - 34.0 pg 01/08/2024 10:59 PM EST LAB[facility]ATORY [facility] MCHC 32.5 32.0 - 36.0 g/dL 01/08/2024 10:59 PM EST LAB[facility]ATORY [facility] RDW 14.0 11.5 - 15.5 % 01/08/2024 10:59 PM EST LAB[facility]ATORY [facility] PLT 142 140 - 400 K/uL 01/08/2024 10:59 PM EST LABORATORY [facility] MPV 9.4 6.6 - 11.1 fL 01/08/2024 10:59 PM EST LABORATORY [facility] nRBCs 0 <=0 /100 WBCs 01/08/2024 10:59 PM EST LABORATORY [facility] Blood Arterial blood specimen / Unknown Arterial Line / Unknown 01/08/2024 10:44 PM EST 01/08/2024 10:47 PM EST Geo Barroso MD LAB BLOOD ORDERABLES Final Resul t Performing Organization Address City/[facility]/ZIP Co de Phone Number LABORATORY [facility] [address] [place] [address] * (ABNORMAL) APTT (01/08/2024 10:44 PM EST) aPTT 53(H) 21 - 38 seconds 01/08/2024 11:01 PM EST LABORATORY [facility] Blood Arterial blood specimen / Unknown Arterial Line / Unknown 01/08/2024 10:44 PM EST 01/08/2024 10:47 PM EST Narrative LABORATORY [facility] - 01/08/2024 11:01 PM EST Anticoagulation may affect testing. Refer to [facility] for a list of effects. Geo Barroso MD LAB BLOOD ORDERABLES Final Resul t Performing Organization Address City/[facility]/ZIP Co de Phone Number LABORATORY [facility] [address] [place] [address] * PT INR (01/08/2024 10:44 PM EST) Prothrombin Time 14.1 11.6 - 15.2 seconds 01/08/2024 10:59 PM EST LABORATORY [facility] INR 1.1 0.8 - 1.2 01/08/2024 10:59 PM EST LABORATORY [facility] Blood Arterial blood specimen / Unknown Arterial Line / Unknown 01/08/2024 10:44 PM EST 01/08/2024 10:47 PM EST Narrative LABORATORY [facility] - 01/08/2024 10:59 PM EST Warfarin Therapy INR: 2.0-3.0 conventional anticoagulation INR: 2.5-3.5 high intensity anticoagulation us Geo Barroso MD LAB BLOOD ORDERABLES Final Resul t LABORATORY [facility] [address] [place] [address] documented in this encounter Visit Diagnoses Diagnosis NSTEMI (non-ST elevated myocardial infarction) (HCC)- Primary Acute myocardial infarction, subendocardial infarction, episode of care unspecified Cardiac arrest with ventricular fibrillation (HCC) Chest pain Chest pain, unspecified Heart failure (HCC) Heart failure, unspecified NSTEMI (non-ST elevated myocardial infarction) (HCC) [I21.4] Acute myocardial infarction, subendocardial infarction, episode of care unspecified Coronary artery disease involving [place] coronary artery of [place] heart [I25.10] Unspecified systolic (congestive) heart failure (HCC) [I50.20] Hypertensive heart disease with heart failure (HCC) [I11.0] Unspecified hypertensive heart disease with heart failure Ventricular fibrillation (HCC) [I49.01] Ventricular fibrillation History of cardiac arrest [Z86.74] Personal history of sudden cardiac arrest Aortic valve stenosis, etiology of cardiac valve disease unspecified Left bundle-branch block, unspecified [I44.7] History of GI bleed [Z87.19] Personal history of other diseases of digestive system History of tobacco use [Z87.891] Personal history of tobacco use, presenting hazards to health 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) use of aspirin [Z79.82] Acute systolic (congestive) heart failure (HCC) [I50.21] Cardiomyopathy, unspecified (HCC) [I42.9] Essential (primary) hypertension [I10] Unspecified essential hypertension Type 2 diabetes mellitus without complications (HCC) [E11.9] Type II or unspecified type diabetes mellitus without mention of complication, not stated as uncontrolled 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) use of oral hypoglycemic drugs [Z79.84] S/P PTCA (percutaneous transluminal coronary angioplasty) Postsurgical percutaneous transluminal coronary angioplasty status Status post cardiac catheterization Other postprocedural status Other specified disorders of bladder Hematuria, unspecified Gross hematuria Heart failure with reduced ejection fraction (HFrEF, <= 40%) (HCC) [I50.20] Pure hypercholesterolemia, unspecified [E78.00] Cardiac arrest, cause unspecified ([facility]) [I46.9] Presence of external cardiac defibrillator Anemia due to acute blood loss Acute posthemorrhagic anemia History of tobacco use Personal history of tobacco use, presenting hazards to health Right thyroid nodule Nontoxic uninodular goiter Aortic valve stenosis Aortic valve disorders History of cardiac arrest Personal history of sudden cardiac arrest Gross hematuria Coronary artery disease involving [place] coronary artery of [place] heart Encounter for dental examination Dental examination Anemia due to acute blood loss Acute posthemorrhagic anemia S/P primary angioplasty with coronary stent Postsurgical percutaneous transluminal coronary angioplasty status Heart failure with reduced ejection fraction (HFrEF, <= 40%) ([facility]) Type 2 diabetes mellitus with hemoglobin A1c goal of less than 7.0% ([facility]) LBBB (left bundle branch block) Other left bundle branch block Cardiac arrest with ventricular fibrillation ([facility]) Presence of external cardiac defibrillator documented in this encounter Administered Medications Inactive Administered Medications - up to 3 most recent administrations Medication Order MAR Action Action Date Dose Rate Site Amiodarone (Cordarone) 150 mg in dextrose 100 mL BOLUS 150 mg, Central IV, ONCE, 1 dose, On Sat01/08/24 at 2330, Administer over 10 Minutes, USE 0.22 micron inline filter New Bag 01/08/2024 11:24 PM EST 150 mg 600 mL/hr amiodarone (Cordarone) 900 mg in NSS 500 mL INFUSION Central IV, 1 mg/min (33.3333 mL/hr, rounded to 33.33 mL/hr), Amiodarone to be run using Smart pump mode: Pump is programmed to *ALERT* at 200 ml to notify of RATE change from 1mg/min to go to 0.5 mg/min. Use 0.22 micron filter., CONTINUOUS, Starting on Sat01/08/24 at 2330, Until Talia 01/09/24 at 0529 Rate Verify 01/09/2024 12:00 AM EST 1 mg/min 33.33 mL/hr New Bag 01/08/2024 11:37 PM EST 1 mg/min 33.33 mL/hr Rate Change 01/08/2024 11:35 PM EST 1 mg/min 33.33 mL/hr amiodarone (Cordarone) 900 mg in NSS 500 mL INFUSION Central IV, 0.5 mg/min (16.6667 mL/hr, rounded to 16.67 mL/hr), Amiodarone to be run using Smart pump mode: Pump is programmed to *ALERT* at 200 ml to notify of RATE change from 1mg/min to go to 0.5 mg/min. Use 0.22 micron filter., CONTINUOUS CALL PHARMACY TO DISPENSE, Starting on Sat01/09/24 at 0500, Until Sat01/14/24 at 1031 New Bag 01/14/2024 5:55 AM EST 0.5 mg/min 16.67 mL/hr New Bag 01/13/2024 12:30 AM EST 0.5 mg/min 16.67 mL/hr Rate Verify 01/12/2024 5:00 PM EST 0.5 mg/min 16.66 mL/hr amiodarone (Cordarone) tab 200 mg 200 mg, Oral, BREAKFAST, First dose (after last modification) on Sat01/16/24 at 0800, Until Discontinued Given 01/16/2024 8:31 AM EST 200 mg amiodarone (Cordarone) tab 400 mg 400 mg, Oral, WITH MEALS, First dose on Sat01/12/24 at 1700, Until Discontinued Given 01/12/2024 4:55 PM EST 400 mg amiodarone (Cordarone) tab 400 mg 400 mg, Oral, TID(AM/NOON/HS), First dose (after last modification) on Sat01/13/24 at 0600, Until Discontinued Given 01/14/2024 5:10 AM EST 400 mg Given 01/13/2024 10:51 PM EST 400 mg Given 01/13/2024 12:19 PM EST 400 mg amiodarone (Cordarone) tab 400 mg 400 mg, Oral, BREAKFAST, First dose (after last modification) on Sat01/15/24 at 0800, Until Discontinued Given 01/15/2024 7:52 AM EST 400 mg aspirin chew tab 81 mg 81 mg, Oral, Daily(AM), First dose on Sat01/09/24 at 0900, Until Discontinued Given 01/16/2024 8:31 AM EST 81 mg Given 01/15/2024 7:52 AM EST 81 mg Given 01/14/2024 8:40 AM EST 81 mg atorvaSTATin (Lipitor) tab 40 mg 40 mg, Oral, Q1700, First dose on Sat01/09/24 at 1700, Until Discontinued Given 01/15/2024 4:55 PM EST 40 mg Given 01/14/2024 5:24 PM EST 40 mg Given 01/13/2024 5:44 PM EST 40 mg Carvedilol (Coreg) tab 3.125 mg 3.125 mg, Oral, BID (AM/PM MEALS), First dose on Sat01/09/24 at 1215, Until Discontinued, Hold for HR less than 60 or SBP below 100 and notify service if dose is held MUST BE GIVEN WITH MEAL Given 01/10/2024 8:00 AM EST 3.125 mg Given 01/09/2024 12:15 PM EST 3.125 mg Carvedilol (Coreg) tab 3.125 mg 3.125 mg, Oral, ONCE, On Sat01/10/24 at 1130, For 1 dose, Hold for HR less than 60 or SBP below 100 and notify service if dose is held MUST BE GIVEN WITH MEAL Given 01/10/2024 11:28 AM EST 3.125 mg chlorHEXIDINE (Periogard) 0.12 % oral rinse 15 mL 15 mL, Oral mucosal membrane, BID (), First dose on Sat01/09/24 at 0800, Until Discontinued, Include oral/gum/tooth brushing with medication. Use prepackaged oral kit suction tooth brush if available. Given 01/12/2024 9:07 AM EST 15 mL Given 01/10/2024 7:40 PM EST 15 mL Given 01/10/2024 8:00 AM EST 15 mL chlorHEXIDINE (Periogard) 0.12 % oral rinse 15 mL 15 mL, Swish & Spit, BID (), First dose on Sat01/10/24 at 2000, Until Discontinued Given 01/16/2024 8:29 AM EST 15 mL Given 01/15/2024 8:03 AM EST 15 mL Given 01/14/2024 8:39 AM EST 15 mL clopidogrel (pLAVix) tab 600 mg 600 mg, Oral, ONCE, On 01/13/24 at 1345, For 1 dose Given 01/13/2024 1:44 PM EST 600 mg clopidogrel (pLAVix) tab 75 mg 75 mg, Oral, Daily(AM), First dose on Sat01/14/24 at 0900, Until Discontinued Given 01/16/2024 8:30 AM EST 75 mg Given 01/15/2024 7:52 AM EST 75 mg Given 01/14/2024 8:38 AM EST 75 mg dextrose 50% inj 25 mL 25 mL, IV Push, PRN Hypoglycemia, Other, For blood glucose 54 - 69 mg/dL or 70 - 100 mg/dL with symptoms AND patient is unresponsive, NPO, OR unable to swallow, Starting on Talia 01/09/24 at 0229, Until Talia 01/16/24 at 1935, Administer IV. Recheck blood glucose after 15 minutes. Notify provider. dextrose 50% inj 50 mL 50 mL, IV Push, PRN Hypoglycemia, Other, For blood glucose below 54 mg/dL AND patient unresponsive, NPO, OR unable to swallow, Starting on Talia 01/09/24 at 0229, Until Talia 01/16/24 at 1935, Administer IV. Recheck blood glucose in 15 minutes. Notify provider. Empagliflozin (Jardiance) tab 25 mg 25 mg, Oral, Daily(AM), First dose on Sat01/14/24 at 1115, Until Discontinued Given 01/16/2024 8:35 AM EST 25 mg Given 01/15/2024 7:53 AM EST 25 mg Given 01/14/2024 11:18 AM EST 25 mg Enoxaparin (Lovenox) inj 40 mg 40 mg, Subcutaneous, Daily(AM), First dose on Sat01/14/24 at 0900, Until Discontinued, If patient is on warfarin, inform provider if daily INR value is 2 or greater! Given 01/16/2024 8:29 AM EST 40 mg Abdom en Left Lower Given 01/15/2024 7:51 AM EST 40 mg Ab domen Left Lower Given 01/14/2024 8:37 AM EST 40 mg Ab domen Right Upper fentaNYL (PF) inj 25 mcg 25 mcg, IV Push, PRN Pain, Severe, Starting on Sat01/13/24 at 1339, Until Sat01/13/24 at 1538, For 2 hours, To be administered in [employer] intra-procedure only When given IV Push its recommended that the dose be given over 3 to 5 minutes., Intra-Op Given 01/13/2024 1:51 PM EST 25 mcg fentaNYL (PF) inj 50 mcg 50 mcg, IV Push, PRN Pain, Severe, Starting on Sat01/10/24 at 0917, Until Sat01/10/24 at 1013, For 2 hours, To be administered in [employer] intra-procedure only When given IV Push its recommended that the dose be given over 3 to 5 minutes., Intra-Op Given 01/10/2024 9:31 AM EST 50 mcg glucagon (Glucagen) inj 1 mg 1 mg, Intramuscular, PRN Hypoglycemia, Other, If patient is unresponsive, or NPO and has no IV access, Starting on Sat01/09/24 at 0229, Until Sat01/16/24 at 193, NPO and no IV access with either 1) blood glucose less than 100 mg/dL and symptomatic OR 2) blood glucose less than 70 mg/dL and asymptomatic Glucose (Glutose 15) 40 % gel 15 g of glucose 15 g of glucose, Oral, PRN Hypoglycemia (low sugar), Other, For blood glucose 54 - 69 mg/dL or 70 - 100 mg/dL with symptoms AND patient alert WITH difficulty chewing/swallowing, Starting on Sat01/09/24 at 0229, Until Sat01/16/24 at 1935, Administer gel. Recheck blood glucose after 15 minutes. Notify provider. 37.5 gram tube = 15 grams glucose = 1 each Glucose (Glutose 15) 40 % gel 30 g of glucose 30 g of glucose, Oral, PRN Hypoglycemia (low sugar), Other, For blood glucose below 54 mg/dL AND patient alert WITH difficulty chewing/swallowing, Starting on Sat01/09/24 at 0229, Until Sat01/16/24 at 1935, Administer gel. Recheck blood glucose after 15 minutes. Notify provider. 37.5 gram tube = 15 grams glucose = 1 each glucose chew tab 16 g 16 g, Oral, PRN Hypoglycemia, Other, For blood glucose 54 - 69 mg/dL or 70 - 100 mg/dL with symptoms and patient alert without difficulty chewing/swallowing., Starting on Sat01/09/24 at 0229, Until Talia 01/16/24 at 1935 hEParin 1000 UNIT/ML inj 2,600 Units 2,600 Units (rounded from 2,586 Units = 30 Units/kg 86.2 kg), IV Push, PRN Other, If most recent Heparin Assay result is less than or equal to 0.2 units/mL, Starting on Sat01/08/24 at 2231, Until Sat01/12/24 at 1003, Repeat Heparin Assay 6 hours after bolus is administered. Given 01/09/2024 5:17 AM EST 2,600 Units hEParin 25,000 units in 250 mL (Xa-Cardiac) infusion Intravenous, at 0-25.86 mL/hr, Start heparin as soon as baseline labs are drawn. Please select this medication from the infusion pump library! Concentration: 100 units/mL Expires 96 hours after spiking on (date) at (hour) , TITRATE, Starting on Sat01/08/24 at 2315, Until Sat01/12/24 at 1003 Rate Verify 01/12/2024 10:00 AM EST 15 Units/kg/hr 12.93 mL/hr Rate Verify 01/12/2024 9:00 AM EST 15 Units/kg/hr 12.93 mL /hr Rate Verify 01/12/2024 8:00 AM EST 15 Units/kg/hr 12.93 mL /hr hEParin inj 12,000 Units 12,000 Units, IV Push, PRN Other, Anticoagulation not at goal, Starting on Sat01/13/24 at 1339, Until Sat01/13/24 at 1538, For 2 hours, To be administered in [employer] intra-procedure., Intra-Op Given 01/13/2024 3:20 PM EST 2,000 Units Given 01/13/2024 2:34 PM EST 3,000 Units Given 01/13/2024 2:07 PM EST 3,000 Units hEParin inj 5,000 Units 5,000 Units, IV Push, PRN Other, Anticoagulation not at goal, Starting on Sat01/10/24 at 0918, Until Sat01/10/24 at 1013, For 2 hours, To be administered in [employer] intra-procedure., Intra-Op Given 01/10/2024 9:47 AM EST 5,000 Units insulin aspart (NovoLOG) inj Subcutaneous, WITH MEALS, First dose on Talia 01/09/24 at 0800, Until Discontinued, LOW DOSE (Elderly insulin sensitive patient): Sliding Scale Correctional insulin may be given if the patient is NPO. Dose based on standard build from Insulin Calculator. Do not modify insulin doses in administration instructions!, Glucose less than 70 instructions: Obtain STAT lab blood glucose and call covering provider., Glucose 80-150 (units): 0, Glucose 151-200 (units): 1, Glucose 201-250 (units): 2, Glucose 251-300 (units): 3, Glucose greater than 300 (units): 4, Glucose greater than 300 instructions: Give suggested insulin dose and call covering provider. Given 01/16/2024 11:59 AM EST 2 Units Arm Left Upper Given 01/16/2024 8:29 AM EST 1 Units Ar m Right Upper Given 01/15/2024 4:51 PM EST 4 Units Ar m Right Upper Iopamidol (Isovue 370) inj 180 mL 180 mL, Intracoronary, ONCE, On Sat01/13/24 at 1600, For 1 dose, Intra-Op Given 01/13/2024 3:22 PM EST 180 mL Iopamidol (Isovue 370) inj 80 mL 80 mL, Intravenous, ONCE, On Sat01/10/24 at 2230, For 1 dose, Radiology Medication Routing (Non-IR) Given 01/10/2024 10:30 PM EST 80 mL Iopamidol (Isovue 370) inj 80 mL 80 mL, Intravenous, ONCE, On Sat01/12/24 at 1245, For 1 dose, Radiology Medication Routing (Non-IR) Given 01/12/2024 12:45 PM EST 80 mL magnesium sulfate 1 g in d5w 100mL LOCKED DOSE 1 g, IV Piggyback, ONCE, 1 dose, On Sat01/10/24 at 0900, Administer over 60 Minutes Rate Verify 01/10/2024 12:00 PM EST 1 g/hr 100 mL/hr New Bag 01/10/2024 11:04 AM EST 1 g 100 mL/hr magnesium sulfate 1 g in d5w 100mL LOCKED DOSE 1 g, IV Piggyback, ONCE, 1 dose, On Sat01/12/24 at 0715, Administer over 60 Minutes Rate Verify 01/12/2024 10:00 AM EST 1 g/hr 100 mL/hr New Bag 01/12/2024 9:11 AM EST 1 g 100 mL/hr magnesium sulfate 1 g in d5w 100mL LOCKED DOSE 1 g, IV Piggyback, ONCE, 1 dose, On Sat01/13/24 at 0915, Administer over 60 Minutes New Bag 01/13/2024 9:26 AM EST 1 g 100 mL/hr magnesium sulfate 1 g in d5w 100mL LOCKED DOSE 1 g, IV Piggyback, ONCE, 1 dose, On Sat01/14/24 at 0745, Administer over 60 Minutes New Bag 01/14/2024 8:50 AM EST 1 g 100 mL/hr melatonin tab 6 mg 6 mg, Oral, HS, First dose on Sat01/12/24 at 2200, Until Discontinued Given 01/15/2024 9:26 PM EST 6 mg Given 01/14/2024 8:11 PM EST 6 mg Given 01/13/2024 10:50 PM EST 6 mg metoprolol succinate XL (toPROL XL) tab 25 mg 25 mg, Oral, Daily(AM), First dose on Sat01/15/24 at 0900, Until Discontinued, Hold for HR less than 60 or SBP below 100 and notify service if dose is held This med should NOT be Crushed or Chewed. Given 01/16/2024 8:30 AM EST 25 mg Given 01/15/2024 7:52 AM EST 25 mg Metoprolol Tartrate (Lopressor) tab 12.5 mg 12.5 mg, Oral, Q12H, First dose on Sat01/12/24 at 1430, Until Discontinued, Hold for HR less than 60 or SBP below 100 and notify service if dose is held Given 01/14/2024 8:38 AM EST 12.5 mg Given 01/13/2024 10:50 PM EST 12.5 mg Given 01/13/2024 8:12 AM EST 12.5 mg Metoprolol Tartrate (Lopressor) tab 12.5 mg 12.5 mg, Oral, Q12H, First dose (after last modification) on Sat01/14/24 at 2100, Last dose on Sat01/14/24 at 2100, For 1 dose, Hold for HR less than 60 or SBP below 100 and notify service if dose is held Given 01/14/2024 8:11 PM EST 12.5 mg midazolam (Versed) 2 MG/2ML inj 1 mg 1 mg, IV Push, PRN Anxiety, Starting on Sat01/10/24 at 0917, Until Sat01/10/24 at 1013, For 2 hours, To be administered in [employer] intra-procedure only, Intra-Op Given 01/10/2024 9:31 AM EST 1 mg midazolam (Versed) 2 MG/2ML inj 1 mg 1 mg, IV Push, PRN Anxiety, Starting on Sat01/13/24 at 1339, Until Sat01/13/24 at 1538, For 2 hours, To be administered in [employer] intra-procedure only, Intra-Op Given 01/13/2024 1:51 PM EST 0.5 mg NSS 0.9% 250 mL bolus infusion Intravenous, at 500 mL/hr Administer over 30 Minutes, Administer entire volume within 60 minutes or less., ONCE, 1 dose, On Sat01/10/24 at 1915 New Bag 01/10/2024 7:07 PM EST 250 mL 500 mL/hr Oral Hygiene: Mouth Swab with dentifrice Oral, Q4H LIMITED (00;04;12;16), First dose on Sat01/09/24 at 0000, Until Discontinued, To be used with 1.5% hydrogen peroxide solution or 0.05% cetylpyridium chloride oral rinse Given 01/16/2024 11:59 AM EST Given 01/12/2024 4:00 PM EST Given 01/12/2024 12:00 PM EST oxybutynin (Ditropan) tab 5 mg 5 mg, Oral, TID PRN bladder spasm, Starting on Sat01/09/24 at 1745, Until Sat01/16/24 at 1935 Polyethylene Glycol 3350 (Miralax) oral powder 17 g 17 g (1 Packet), Oral, DAILY PRN Constipation, Starting on Sat01/10/24 at 1018, Until Sat01/16/24 at 1935, Mix in 8 oz of water, juice, soda, coffee, or tea. Polyethylene Glycol 3350 (Miralax) oral powder 17 g 17 g (1 Packet), Oral, Daily(AM), First dose (after last modification) on Sat01/15/24 at 0900, Until Discontinued, Mix in 8 oz of water, juice, soda, coffee, or tea. Given 01/16/2024 8:31 AM EST 17 g Given 01/15/2024 7:51 AM EST 17 g potassium chloride ER tab 20 mEq 20 mEq, Oral, ONCE, On Sat01/09/24 at 0645, For 1 dose, This med should NOT be Crushed or Chewed Given 01/09/2024 6:27 AM EST 20 mEq sacubitril-valsartan 24-26 mg per tab (Entresto) tab 1 Tablet 1 Tablet, Oral, BID (.AM/PM), First dose on Sat01/14/24 at 1115, Until Discontinued Given 01/16/2024 8:29 AM EST 1 Ta blet Given 01/15/2024 9:26 PM EST 1 Tablet Given 01/15/2024 7:52 AM EST 1 Tablet senna-docusate (Senokot-S) 1 Tablet 1 Tablet, Oral, Daily(AM), First dose on Sat01/10/24 at 0900, Until Discontinued Given 01/16/2024 8:30 AM EST 1 T ablet Given 01/15/2024 7:53 AM EST 1 Tablet Given 01/14/2024 8:38 AM EST 1 Tablet sodium chloride 0.9 % flush peripheral adriano 3 mL 3 mL, IV Push, Q8H, First dose on Sat01/08/24 at 2315, Until Discontinued, Do not flush if lock, PICC, or central line not in place; IV infusing or unable to flush. Given 01/16/2024 6:00 AM EST 3 mL Given 01/15/2024 10:00 PM EST 3 mL Given 01/15/2024 2:00 PM EST 3 mL Spironolactone (Aldactone) tab 12.5 mg 12.5 mg, Oral, Daily(AM), First dose on Sat01/16/24 at 1030, Until Discontinued Given 01/16/2024 11:59 AM EST 12.5 mg documented in this encounter Active and Recently Administered Medications Times are shown in EST. Scheduled Medication Order 01/14/2024 01/15/2024 01/16/2024 amiodarone (Cordarone) tab 200 mg 200 mg, Oral, BREAKFAST, First dose (after last modification) on Sat01/16/24 at 0800, Until Discontinued 0831 (Given - Provider: Bettina Rojo RN) amiodarone (Cordarone) tab 400 mg (CANCELED) 400 mg, Oral, TID(AM/NOON/HS), First dose (after last modification) on Sat01/13/24 at 0600, Until Discontinued 0510 (Given - Provider: Antonette Doan RN) amiodarone (Cordarone) tab 400 mg (CANCELED) 400 mg, Oral, BREAKFAST, First dose (after last modification) on Sat01/15/24 at 0800, Until Discontinued 0752 (Given - Provider: Santiago Hanna LPN) aspirin chew tab 81 mg 81 mg, Oral, Daily(AM), First dose on Sat01/09/24 at 0900, Until Discontinued 0840 (Given - Provider: Veronica Perry RN) 0752 (Given - Provider: Santiago Hanna LPN) 0831 (Given - Provider: Bettina Rojo RN) atorvaSTATin (Lipitor) tab 40 mg 40 mg, Oral, Q1700, First dose on Sat01/09/24 at 1700, Until Discontinued 1724 (Given - Provider: Veronica Perry RN) 1655 (Given - Provider: Santiago Hanna LPN) chlorHEXIDINE (Periogard) 0.12 % oral rinse 15 mL 15 mL, Oral mucosal membrane, BID (799,1999), First dose on Sat01/09/24 at 0800, Until Discontinued, Include oral/gum/tooth brushing with medication. Use prepackaged oral kit suction tooth brush if available. 08 (Not Given - Provider: Veronica Perry RN - Reason: Other- Please add reason in Comments - Comment: duplicate)1999 (Not Given - Provider: Adis Lam RN - Reason: Parameter(s) Not Met) 799 (Not Given - Provider: Santiago Hanna LPN - Reason: Parameter(s) Not Met)1999 (Not Given - Provider: Cari Carson RN - Reason: Parameter(s) Not Met) 799 (Not Given - Provider: Bettina Rojo RN - Reason: Other-Notify Provider - Comment: duplicate order) chlorHEXIDINE (Periogard) 0.12 % oral rinse 15 mL 15 mL, Swish & Spit, BID (), First dose on Sat01/10/24 at 2000, Until Discontinued 0839 (Given - Provider: Veronica Perry RN)1999 (Not Given - Provider: Adis Lam RN - Reason: Parameter(s) Not Met) 08 (Given - Provider: Santiago Hanna LPN)1999 (Not Given - Provider: Cari Carson RN - Reason: Parameter(s) Not Met) 08 (Given - Provider: Bettina Rojo RN) clopidogrel (pLAVix) tab 75 mg 75 mg, Oral, Daily(AM), First dose on Sat01/14/24 at 0900, Until Discontinued 0838 (Given - Provider: Veronica Perry RN) 0752 (Given - Provider: Santiago Hanna LPN) 0830 (Given - Provider: Bettina Rojo RN) Empagliflozin (Jardiance) tab 25 mg 25 mg, Oral, Daily(AM), First dose on Sat01/14/24 at 1115, Until Discontinued 1118 (Given - Provider: Veronica Perry RN) 0753 (Given - Provider: Santiago Hanna LPN) 0835 (Given - Provider: Bettina Rojo RN) Enoxaparin (Lovenox) inj 40 mg 40 mg, Subcutaneous, Daily(AM), First dose on Sat01/14/24 at 0900, Until Discontinued, If patient is on warfarin, inform provider if daily INR value is 2 or greater! 0837 (Given - Provider: Veronica Perry RN) 0751 (Given - Provider: Santiago Hanna LPN) 0829 (Given - Provider: Bettina Rojo RN) insulin aspart (NovoLOG) inj Subcutaneous, WITH MEALS, First dose on Sat01/09/24 at 0800, Until Discontinued, LOW DOSE (Elderly insulin sensitive patient): Sliding Scale Correctional insulin may be given if the patient is NPO. Dose based on standard build from Insulin Calculator. Do not modify insulin doses in administration instructions!, Glucose less than 70 instructions: Obtain STAT lab blood glucose and call covering provider., Glucose 80-150 (units): 0, Glucose 151-200 (units): 1, Glucose 201-250 (units): 2, Glucose 251-300 (units): 3, Glucose greater than 300 (units): 4, Glucose greater than 300 instructions: Give suggested insulin dose and call covering provider. 0842 (Given - Provider: Veronica Perry RN)1241 (Given - Provider: Veronica Perry RN)1700 (Not Given - Provider: Veronica Perry RN - Reason: Parameter(s) Not Met) 0751 (Given - Provider: Santiago Hanna LPN)1228 (Given - Provider: Santiago Hanna LPN)1651 (Given - Provider: Santiago Hanna LPN) 0829 (Given - Provider: Bettina Rojo, ROGERIO)1159 (Given - Provider: Bettina Rojo, ROGERIO) magnesium sulfate 1 g in d5w 100mL LOCKED DOSE (COMPLETED) 1 g, IV Piggyback, ONCE, 1 dose, On Sat01/14/24 at 0745, Administer over 60 Minutes 0850 (New Bag - Provider: Veronica Perry RN) melatonin tab 6 mg 6 mg, Oral, HS, First dose on Sat01/12/24 at 2200, Until Discontinued 2010 (Given - Provider: Adis Lam RN) 2125 (Given - Provider: Cari Carson RN) metoprolol succinate XL (toPROL XL) tab 25 mg 25 mg, Oral, Daily(AM), First dose on Sat01/15/24 at 0900, Until Discontinued, Hold for HR less than 60 or SBP below 100 and notify service if dose is held This med should NOT be Crushed or Chewed. 0752 (Given - Provider: Santiago Hanna LPN) 0830 (Given - Provider: Bettina Rojo, ROGERIO) Metoprolol Tartrate (Lopressor) tab 12.5 mg (CANCELED) 12.5 mg, Oral, Q12H, First dose on Sat01/12/24 at 1430, Until Discontinued, Hold for HR less than 60 or SBP below 100 and notify service if dose is held 0838 (Given - Provider: Veronica Perry RN) Metoprolol Tartrate (Lopressor) tab 12.5 mg (COMPLETED) 12.5 mg, Oral, Q12H, First dose (after last modification) on Sat01/14/24 at 2100, Last dose on Sat01/14/24 at 2100, For 1 dose, Hold for HR less than 60 or SBP below 100 and notify service if dose is held 2010 (Given - Provider: Adis Lam RN) Oral Hygiene: Mouth Swab with dentifrice Oral, Q4H LIMITED (;;;16), First dose on Sat01/09/24 at 0000, Until Discontinued, To be used with 1.5% hydrogen peroxide solution or 0.05% cetylpyridium chloride oral rinse 0000 (Not Given - Provider: Antonette Doan RN - Reason: Parameter(s) Not Met)0400 (Not Given - Provider: Antonette Doan RN - Reason: Parameter(s) Not Met)1200 (Not Given - Provider: Veronica Perry RN - Reason: Parameter(s) Not Met)1600 (Not Given - Provider: Veronica Perry RN - Reason: Parameter(s) Not Met) 0000 (Not Given - Provider: Adis Lam RN - Reason: Parameter(s) Not Met)0400 (Not Given - Provider: Adis Lma RN - Reason: Parameter(s) Not Met)1200 (Not Given - Provider: Santiago Hanna LPN - Reason: Parameter(s) Not Met)1600 (Not Given - Provider: Santiago Hanna LPN - Reason: Parameter(s) Not Met) 0000 (Not Given - Provider: Cari Carson RN - Reason: Parameter(s) Not Met)0400 (Not Given - Provider: Cari Carson RN - Reason: Parameter(s) Not Met)1159 (Given - Provider: Bettina Rojo RN) Polyethylene Glycol 3350 (Miralax) oral powder 17 g 17 g (1 Packet), Oral, Daily(AM), First dose (after last modification) on Sat01/15/24 at 0900, Until Discontinued, Mix in 8 oz of water, juice, soda, coffee, or tea. 0751 (Given - Provider: Santiago Hanna LPN) 0831 (Given - Provider: Bettina Rojo RN) sacubitril-valsartan 24-26 mg per tab (Entresto) tab 1 Tablet 1 Tablet, Oral, BID (.AM/PM), First dose on Sat01/14/24 at 1115, Until Discontinued 1117 (Given - Provider: Veronica Perry RN)2010 (Given - Provider: Adis Lam RN) 075 (Given - Provider: Santiago Hanna LPN)2125 (Given - Provider: Cari Carson, ROGERIO) 08 (Given - Provider: Bettina Rojo RN) senna-docusate (Senokot-S) 1 Tablet 1 Tablet, Oral, Daily(AM), First dose on Sat01/10/24 at 0900, Until Discontinued 0838 (Given - Provider: Veronica Perry RN) 075 (Given - Provider: Santiago Hanna LPN) 0830 (Given - Provider: Bettina Rojo RN) sodium chloride 0.9 % flush peripheral adriano 3 mL 3 mL, IV Push, Q8H, First dose on Sat01/08/24 at 2315, Until Discontinued, Do not flush if lock, PICC, or central line not in place; IV infusing or unable to flush. 0600 (Given - Provider: Antonette Doan RN)1400 (Given - Provider: Veronica Perry RN)2200 (Given - Provider: Adis Lam RN) 0600 (Given - Provider: Adis Lam RN)1400 (Given - Provider: Santiago Hanna LPN)2200 (Given - Provider: Cari Carson, ROGERIO) 0600 (Given - Provider: Cari Carson, ROGERIO)1400 (Not Given - Provider: Bettina Rojo RN - Reason: Parameter(s) Not Met) Spironolactone (Aldactone) tab 12.5 mg 12.5 mg, Oral, Daily(AM), First dose on Sat01/16/24 at 1030, Until Discontinued 1159 (Given - Provider: Bettina Rojo RN) Continuous Medication Order 01/14/2024 01/15/2024 01/16/2024 amiodarone (Cordarone) 900 mg in NSS 500 mL INFUSION (CANCELED) Central IV, 0.5 mg/min (16.6667 mL/hr, rounded to 16.67 mL/hr), Amiodarone to be run using Smart pump mode: Pump is programmed to *ALERT* at 200 ml to notify of RATE change from 1mg/min to go to 0.5 mg/min. Use 0.22 micron filter., CONTINUOUS CALL PHARMACY TO DISPENSE, Starting on Sat01/09/24 at 0500, Until Sat01/14/24 at 1031 0555 (New Bag - Provider: Antonette Doan, RN)1031 (Stopped - Provider: Veronica Perry RN) PRN Medication Order 01/14/2024 01/15/2024 01/16/2024 dextrose 50% inj 25 mL 25 mL, IV Push, PRN Hypoglycemia, Other, For blood glucose 54 - 69 mg/dL or 70 - 100 mg/dL with symptoms AND patient is unresponsive, NPO, OR unable to swallow, Starting on Sat01/09/24 at 0229, Until Talia 01/16/24 at 1935, Administer IV. Recheck blood glucose after 15 minutes. Notify provider. dextrose 50% inj 50 mL 50 mL, IV Push, PRN Hypoglycemia, Other, For blood glucose below 54 mg/dL AND patient unresponsive, NPO, OR unable to swallow, Starting on Sat01/09/24 at 0229, Until Talia 01/16/24 at 1935, Administer IV. Recheck blood glucose in 15 minutes. Notify provider. glucagon (Glucagen) inj 1 mg 1 mg, Intramuscular, PRN Hypoglycemia, Other, If patient is unresponsive, or NPO and has no IV access, Starting on Sat01/09/24 at 0229, Until Talia 01/16/24 at 1935, NPO and no IV access with either 1) blood glucose less than 100 mg/dL and symptomatic OR 2) blood glucose less than 70 mg/dL and asymptomatic Glucose (Glutose 15) 40 % gel 15 g of glucose 15 g of glucose, Oral, PRN Hypoglycemia (low sugar), Other, For blood glucose 54 - 69 mg/dL or 70 - 100 mg/dL with symptoms AND patient alert WITH difficulty chewing/swallowing, Starting on Talia 01/09/24 at 0229, Until Talia 01/16/24 at 1935, Administer gel. Recheck blood glucose after 15 minutes. Notify provider. 37.5 gram tube = 15 grams glucose = 1 each Glucose (Glutose 15) 40 % gel 30 g of glucose 30 g of glucose, Oral, PRN Hypoglycemia (low sugar), Other, For blood glucose below 54 mg/dL AND patient alert WITH difficulty chewing/swallowing, Starting on Talia 01/09/24 at 0229, Until Talia 01/16/24 at 1935, Administer gel. Recheck blood glucose after 15 minutes. Notify provider. 37.5 gram tube = 15 grams glucose = 1 each glucose chew tab 16 g 16 g, Oral, PRN Hypoglycemia, Other, For blood glucose 54 - 69 mg/dL or 70 - 100 mg/dL with symptoms and patient alert without difficulty chewing/swallowing., Starting on Sat01/09/24 at 0229, Until Talia 01/16/24 at 1935 oxybutynin (Ditropan) tab 5 mg 5 mg, Oral, TID PRN bladder spasm, Starting on Sat01/09/24 at 1745, Until Talia 01/16/24 at 1935 Polyethylene Glycol 3350 (Miralax) oral powder 17 g 17 g (1 Packet), Oral, DAILY PRN Constipation, Starting on Sat01/10/24 at 1018, Until Talia 01/16/24 at 1935, Mix in 8 oz of water, juice, soda, coffee, or tea. documented in this encounter Advance Directives * Full Code (Latest Code Status on File) Date Activated Date Inactivated Comments 01/08/2024 10:30 PM 01/16/2024 7:40 PM This order reflects the patients wishes and were consensually agreed upon. Question Answer Comments Discussion of Advance Directives occurred with: Patient Care Teams Scheduling Coordinator Relationship Specialty Start Date End Date Elvis Flores MD [address] [place] [address] PCP - General 06/09/1998 documented as of this encounter
--- OUTSIDE RECORDS SUMMARY | 2024-01-19 07:56 | External Medical Summary ---
Author Name Unknown Address Unknown Organization K01:[place] [place] [facility] [place] [address] [place] [address] Laboratory Report Ordering Provider Test Date Status YA DEMARCO 01/16/2024 05:37:00 Final Observation Date Value Abnormality Reference (Units ) Status WBC, Total 01/16/2024 05:37:00 10.69 4.00-10.80 (K/uL) Final RBC 01/16/2024 05:37:00 2.82 4.50-5.25 (M/uL) Final Hemoglobin 01/16/2024 05:37:00 7.9 Below low normal 14.0-16.8 (g/dL) Final HCT 01/16/2024 05:37:00 25.1 Below low normal 40.0-48.4 (%) Final MCV 01/16/2024 05:37:00 89.0 82.0-99.5 (fL) Final MCH 01/16/2024 05:37:00 28.0 27.0-34.0 (pg) Final MCHC 01/16/2024 05:37:00 31.5 32.0-36.0 (g/dL) Final RDW 01/16/2024 05:37:00 14.9 11.5-15.5 (%) Final Platelets 01/16/2024 05:37:00 235 140-400 (K/uL) Final MPV 01/16/2024 05:37:00 9.7 6.6-11.1 (fL) Final Nucleated erythrocytes/100 leukocytes [Ratio] in Blood by Automated count 01/16/2024 05:37:00 0 <=0 (/100 WBCs) Final Performing Location [facility] [place] [facility] [place] [place] [address]
--- OUTSIDE RECORDS SUMMARY | 2024-01-19 07:56 | External Medical Summary ---
Author Name Unknown Address Unknown Organization : Laboratory Report Ordering Provider Test Date Status ANGELA GARCIA 01/16/2024 11:38:50 Final Observation Date Value Abnormality Reference (Units ) Status Glucose Point of Care 01/16/2024 11:38:50 234 Above high normal 70-120 (mg/dL) Final Performing Location
--- OUTSIDE RECORDS SUMMARY | 2024-01-19 07:56 | External Medical Summary ---
Author Name Unknown Address Unknown Organization : Laboratory Report Ordering Provider Test Date Status ANGELA GARCIA 01/15/2024 21:16:46 Final Observation Date Value Abnormality Reference (Units ) Status Glucose Point of Care 01/15/2024 21:16:46 221 Above high normal 70-120 (mg/dL) Final Performing Location
--- OUTSIDE RECORDS SUMMARY | 2024-01-19 07:56 | External Medical Summary ---
Author Name Unknown Address Unknown Organization K01:[place] [place] [facility] [place] [address] [place] [address] Laboratory Report Ordering Provider Test Date Status YA DEMARCO 01/15/2024 04:21:00 Final Warfarin Therapy
INR: 2 .0-3.0 conventional anticoagulation
INR: 2.5- 3.5 high intensity anticoagulation Observation Date Value Abnormality Reference (Units ) Status PT 01/15/2024 04:21:00 13.9 11.6-15.2 (seconds) Final INR 01/15/2024 04:21:00 1.1 0.8-1.2 Final Performing Location [facility] [place] [facility] [place] [address] [place] [address]
--- OUTSIDE RECORDS SUMMARY | 2024-01-19 07:56 | External Medical Summary ---
Author Name Unknown Address Unknown Organization : Laboratory Report Ordering Provider Test Date Status ANGELA GARCIA 01/16/2024 08:09:24 Final Observation Date Value Abnormality Reference (Units ) Status Glucose Point of Care 01/16/2024 08:09:24 184 Above high normal 70-120 (mg/dL) Final Performing Location
--- OUTSIDE RECORDS SUMMARY | 2024-01-19 07:56 | External Medical Summary ---
Author Name Unknown Address Unknown Organization K01:[place] [facility] [place] [facility] [place] [address] Laboratory Report Ordering Provider Test Date Status YA DEMARCO 01/15/2024 04:21:00 Final Observation Date Value Abnormality Reference (Units ) Status WBC, Total 01/15/2024 04:21:00 9.01 4.00-10.80 (K/uL) Final RBC 01/15/2024 04:21:00 2.89 4.50-5.25 (M/uL) Final Hemoglobin 01/15/2024 04:21:00 8.0 Below low normal 14.0-16.8 (g/dL) Final HCT 01/15/2024 04:21:00 25.2 Below low normal 40.0-48.4 (%) Final MCV 01/15/2024 04:21:00 87.2 82.0-99.5 (fL) Final MCH 01/15/2024 04:21:00 27.7 27.0-34.0 (pg) Final MCHC 01/15/2024 04:21:00 31.7 32.0-36.0 (g/dL) Final RDW 01/15/2024 04:21:00 14.6 11.5-15.5 (%) Final Platelets 01/15/2024 04:21:00 207 140-400 (K/uL) Final MPV 01/15/2024 04:21:00 9.7 6.6-11.1 (fL) Final Nucleated erythrocytes/100 leukocytes [Ratio] in Blood by Automated count 01/15/2024 04:21:00 0 <=0 (/100 WBCs) Final Performing Location [facility] [place] [facility] [place] [address]
--- OUTSIDE RECORDS SUMMARY | 2024-01-19 07:56 | External Medical Summary | Summary of Care ---
Author Name Unknown Organization [facility] Address [address] [place] [address] Phone [phone] Care Team Providers Care Aviation Engineer Name Role Phone Elvis Flores MD Primary Care Provider [phone] Reason for Visit * Reason Onset Date Comments Appointment 01/16/2024 Encounter Details Date Type Department Care Team (Late st Contact Info) Description 01/16/2024 Telephone Urology Cyndee Strong [address] [place] [address] Saba Martini PA-C [address] [place] [address] Appointment Allergies No known active allergiesdocumented as of this encounter (statuses as of 01/16/2024) Medications Aspirin 81 MG Oral Tablet Chewable Chew and swallow 1 Tablet by mouth in the morning. 30 Tablet 11 4 Active Amiodarone HCl 200 MG Oral Tablet (Cordarone) Take 1 Tablet by mouth daily with breakfast. 90 Tablet 4 Active Metoprolol Succinate ER 25 MG Oral Tablet Extended Release 24 Hour (toPROL XL) Take 1 Tablet by mouth in the morning. 30 Tablet 4 Active Sacubitril-Vals guy 24-26 MG Oral Tablet (Entresto) Take 1 Tablet by mouth in the morning and 1 Tablet before bedtime. 60 Tablet 4 Active Spironolactone 25 MG Oral Tablet (Aldactone) Take one-half (0.5) Tablets by mouth in the morning. 30 Tablet 4 Active Clopidogrel Bisulfate 75 MG Oral Tablet (pLAVix) Take 1 Tablet by mouth in the morning. 30 Tablet 11 4 Active Tamsulosin HCl 0.4 MG Oral Capsule (Flomax) Take 1 Capsule by mouth every night at bedtime. 30 Capsule 4 Active Nitroglycerin 0.4 MG Sublingual Tablet Sublingual (Nitrostat) Dissolve 1 tablet under the tongue every 5 minutes as needed for chest pain, for up to 3 doses in 15 minutes and call 911 or seek medical attention if no relief. 75 Tablet 3 4 Active ONE TOUCH ULTRA BONUS PACK KITIndications: DM type 2, goal A1c below 7 as directed 1 0 5 Suspended LANCETS MISCIndications :DM type 2, goal A1c below 7 once daily 50 11 5 Suspended VITAMIN D 1000 UNIT PO CAPSIndications :Vitamin D deficiency 1 capsule daily 30 Cap 11 1 Suspended CYANOCOBALAMIN (VITAMIN B-12) 100 MCG Tablet Take 1 Tablet by mouth in the morning. Suspended [employer] Ultra In Vitro Strip (Glucose Blood) use to test blood sugars once daily as directed 100 Strip 3 4 Suspended Vitamin C 125 MG Oral Tablet Chewable Take by mouth. Suspended Atorvastatin Calcium 40 MG Oral Tablet (Lipitor)Indica tions:Dyslipide jerri, goal LDL below 100 Take 1 Tablet by mouth in the morning. 90 Tablet 3 4 Suspended metFORMIN HCl 1000 MG Oral Tablet (Glucophage)Ind [...] 4 Suspended Jardiance 25 MG Oral Tablet (Empagliflozin) Indications:Typ e 2 diabetes mellitus with hemoglobin A1c goal of less than 8.0% (HCC) TAKE 1 TABLET BY MOUTH ONCE DAILY 90 Tablet 1 4 Suspended documented as of this encounter (statuses as of 01/16/2024) Active Problems Problem Noted Date Diagnosed Date Presence of external cardiac defibrillator 01/15 S/P primary angioplasty with coronary stent 05/2023 Heart failure with reduced e jection fraction (HFrEF, <= 40%) 01/15/2024 LBBB (left bundle branch block) 01/15/2024 Anemia due to acute blood loss 01/13/2024 Coronary artery disease invo lving hoh coronary artery of hoh heart 01/10/2024 History of cardiac arrest 01/09/2024 [...] encounter Miscellaneous Notes * Telephone Encounter - Thais Cohen MED ASSIST - 01/16/2024 2:20 PM EST Pt is scheduled for an appt in [facility]. * Telephone Encounter - Thais Cohen MED ASSIST - 01/16/2024 2:20 PM EST ----- Message from Elvis Warren sent at 01/16/2024 12:00 PM EST ----- Regarding: trial of void Can we arrange for voiding trial in one week for Russ Alexander Ivan? Thanks in advance. Elvis Warren MD documented in this encounter Plan of Treatment Upcoming Encounters Date Type Department Care Team (Late st Contact Info) Description 01/23/2024 1:00 PM EST Nurse Only Urology, [facility] [address] [place] [address] Whitney, Nurse Urology [facility] [address] [place] [address] 01/24/2024 11:20 AM EST Office Visit Family Leora Acostaefalis Marley [address] [facility] [place] [phone] Elvis Flores MD [address] [facility] [place] [address] 03/02/2024 2:30 PM EST Imaging Radiology [address] [place] [address] 03/06/2024 9:40 AM EST Office Visit [facility] Júnior Acosta Donell [address] [facility] [place] [phone] Elvis Flores MD [address] [facility] [place] [address] 03/09/2024 3:00 PM EST Procedure Only Urology, [place] [address] [facility] [place] [address] Katherine Mccormick MD [address] [facility] [place] [address] 11/11/2024 9:30 AM EDT Cardiac Studies Cardiac Studies, [facility] [address] [place] [address] Health Maintenance Due Date Last Done Comments [...] this encounter Medical Devices Implanted Type Area Riding Teacher Device Identifier Shelf Expiration Date Model / Serial / Lot Stent Dawit 2.25x22 [employer] - [id number] Implanted:Qty: 1 on 01/13/2024 by Nelsy Calvillo MD at [facility] [place] [employer] [place] VASCULAR [id number] 08/28/2026 [id number] UX / / [id number] Stent [place]ruce [place] 2.0x18 [employer] - [id number] Implanted:Qty: 1 on 01/13/2024 by Nelsy Calvillo MD at [facility] [place] [employer] [place] V[place]ULAR [id number] 06/25/2026 [id number] UX / / [id number] Stent [place]ruce [place] 2.50x15 [employer] - [id number] Implanted:Qty: 1 on 01/13/2024 by Nelsy Calvillo MD at [facility] [place] [employer] : VASCULAR 07/22/2026 [id number] UX / / [id number] Stent [place]ruce [place] 2.0x12 [employer] - [id number] Implanted:Qty: 1 on 01/13/2024 by Nelsy Calvillo MD at [facility] [place] [employer] : VASCULAR [id number] 03/05/2026 [id number] UX / / [id number] Stent [place] 2.50x26 [employer] - [id number] Implanted:Qty: 1 on 01/13/2024 by Nelsy Calvillo MD at [facility] [place] [employer] : VASCULAR [id number] 09/24/2026 [id number] UX / / [id number] Stent Dawit 2.50x26 [employer] - [id number] Implanted:Qty: 1 on 01/13/2024 by Nelsy Calvillo MD at [facility] [place] [employer] : VASCULAR [id number] 09/24/2026 [id number] UX / / [id number] documented as of this encounter Advance Directives * Full Code (Latest Code Status on File) Date Activated Date Inactivated Comments 01/08/2024 10:30 PM This order r eflects the patients wishes and were consensually agreed upon. Question Answer Comments Discussion of Advance Directives occurred with: Patient Care Teams Aviation Engineer Relationship Specialty Start Date End Date Elvis Flores MD [address] [place] [address] PCP - General 06/09/1998 documented as of this encounter
--- OUTSIDE RECORDS SUMMARY | 2024-01-19 07:56 | External Medical Summary ---
Author Name Unknown Address Unknown Organization K01:LABORATORY [facility] - [address] [place] [address] Laboratory Report Ordering Provider Test Date Status YA DEMARCO 01/15/2024 04:21:00 Final Observation Date Value Abnormality Reference (Units ) Status Magnesium 01/15/2024 04:21:00 2.0 1.5-2.6 (m g/dL) Final Performing Location LABORATORY [facility] - [address] [place] [address]
--- OUTSIDE RECORDS SUMMARY | 2024-01-19 07:56 | External Medical Summary ---
Author Name Unknown Address Unknown Organization : Laboratory Report Ordering Provider Test Date Status ANGELA GARCIA 01/15/2024 16:27:59 Final Observation Date Value Abnormality Reference (Units ) Status Glucose Point of Care 01/15/2024 16:27:59 363 Above high normal 70-120 (mg/dL) Final Performing Location
--- OUTSIDE RECORDS SUMMARY | 2024-01-19 07:56 | External Medical Summary | Summary of Care ---
Author Name Unknown Organization [facility] Address [address] [place] [address] Phone [phone] Care Team Providers Care Clinical Molecular Geneticist Name Role Phone Alicja Flores MD Primary Care Provider [phone] Reason for Visit * Reason Onset Date Comments Hospital Follow-Up 01/15/2024 2wk hd/fu samuel t needed thanks Anh Encounter Details Date Type Department Care Team (Late st Contact Info) Description 01/15/2024 Telephone Urology, [place] [address] [place] [address] Specified, Zz No Resource [address] [place] [address] Hospital Follow-Up (2wk hd/fu appt [...] block) 01/15/2024 Coronary artery disease invo lving apache coronary artery of apache heart 01/10/2024 History of cardiac arrest 01/09/2024 [...] of Assessment Author No 01/08/2024 10:54 PM Antoneita Mejia RN * Do you have difficulty [...] encounter Miscellaneous Notes * Telephone Encounter - Brenda Mcbride OSA - 01/16/2024 11:19 AM EST Patient is needing a 2 wk HD follow-up with urology. * Telephone Encounter - Tana Martel OSA - 01/16/2024 8:06 AM EST Order changed ot 1 wk by Marilu Chapa, Attending is Bradly Miguel. Russ Munoz 01/08/2024 10:02 PM Admission Description: 83 year old male Department: [facility] [address] [facility] Message Patient Name: RUSS MUNOZ([id number]) Sex: Male : 1940 PCP: ALICJA FLORES Center: [facility] [place] Types of orders made on 01/16/2024: IP Post Discharge , Lab, Point of Care Testing Order Date:01/16/2024 Ordering User:MARILU CHAPA [[id number]] Attending Provider:Bradly Miguel MD [[id number]] Authorizing Provider: Marilu Chapa DO [[id number]] Department:[address][[id number]] Order Specific Information Order: RETURN APPT [CUSTOM: IP355] Order #: [id number]: 1 Priority: Routine Class: Nursing Unit Department [...] AM EST Order RETURN APPT [IP355] (Order [id number]) Russ Munoz 01/08/2024 10:02 PM Admission Description: 83 year old male Department: [address] Message Patient Name: RUSS MUNOZ([id number]) Sex: Male : 1940 PCP: ALICJA FLORES Center: [facility] Types of orders made on 01/15/2024: IP Post Discharge , Lab, Point of Care Testing, Point of Care Testing - Unsolicited Results Order Date:01/15/2024 Ordering User:RADHIKA TATUM [[id number]] Attending Provider:Bradly Miguel MD [[id number]] Authorizing Provider: Radhika Tatum MD [[id number]] Department:[address][[id number]] Order Specific Information Order: RETURN APPT [CUSTOM: IP355] Order #: [id number]: 1 Priority: Routine Class: Nursing Unit Department [...] Care Team (Late st Contact Info) Description 03/02/2024 2:30 PM EST Imaging Radiology [address] [facility] [place] [address] 03/06/2024 9:40 AM EST [facility] [address] [place] [id number] Alicja Flores MD [address] [facility] [address] 03/09/2024 3:00 PM EST Procedure Only Urology, [place] [address] [place] [address] Katherine Mccormick MD [address] [place] [address] 11/11/2024 9:30 AM EDT Cardiac Studies Cardiac Studies, [facility] [address] [facility] [place] [address] Health Maintenance Due Date Last Done Comments [...] this encounter Medical Devices Implanted Type Area Ice Cream Machine Operator Device Identifier Shelf Expiration Date Model / Serial / Lot Stent Dawit 2.25x22 [employer] [place] [employer] - [id number] Implanted:Qty: 1 on 01/13/2024 by Nelsy Calvillo MD at [facility] [employer] : VASCULAR [id number] 08/28/2026 [id number] UX / / [id number] Stent Dawit 2.0x18 [employer] [place] [employer] - [id number] Implanted:Qty: 1 on 01/13/2024 by Nelsy Calvillo MD at [facility] [employer] : VASCULAR [id number] 06/25/2026 [id number] UX / / [id number] Stent Dawit 2.50x15 [employer] [place] [employer] - [id number] Implanted:Qty: 1 on 01/13/2024 by Nelsy Calvillo MD at [facility] [employer] : VASCULAR 07/22/2026 [id number] UX / / [id number] Stent [place] 2.0x12 [employer] [place] [employer] - [id number] Implanted:Qty: 1 on 01/13/2024 by Nelsy Calvillo MD at [facility] [employer] : VASCULAR [id number] 03/05/2026 [id number] UX / / [id number] Stent Dawit 2.50x26 [employer] [place] [employer] - [id number] Implanted:Qty: 1 on 01/13/2024 by Nelsy Calvillo MD at [facility] [employer] : VASCULAR [id number] 09/24/2026 [id number] UX / / [id number] Stent [place] 2.50x26 [place] [employer] - [id number] Implanted:Qty: 1 on 01/13/2024 by Nelsy Calvillo MD at [facility] [employer] : VASCULAR [id number] 09/24/2026 [id number] UX / / [id number] documented as of this encounter Advance Directives * Full Code (Latest Code Status on File) Date Activated Date Inactivated Comments 01/08/2024 10:30 PM This order r eflects the patients wishes and were consensually agreed upon. Question Answer Comments Discussion of Advance Directives occurred with: Patient Care Teams Clinical Molecular Geneticist Relationship Specialty Start Date End Date Alicja Flores MD [address] [facility] [place] [place] [address] PCP - General 06/09/1998 documented as of this encounter
--- OUTSIDE RECORDS SUMMARY | 2024-01-19 07:56 | External Medical Summary ---
Author Name Unknown Address Unknown Organization K01:LABORATORY [place] [address] [facility] [address] [facility] [address] Laboratory Report Ordering Provider Test Date Status CHRIS MALONE 01/16/2024 00:40:00 Final Observation Date Value Abnormality Reference (Units ) Status WBC, Total 01/16/2024 00:40:00 13.48 Above high normal 4.00-10.80 (K/uL) Final RBC 01/16/2024 00:40:00 2.84 4.50-5.25 (M/uL) Final Hemoglobin 01/16/2024 00:40:00 8.0 Below low normal 14.0-16.8 (g/dL) Final HCT 01/16/2024 00:40:00 25.2 Below low normal 40.0-48.4 (%) Final MCV 01/16/2024 00:40:00 88.7 82.0-99.5 (fL) Final MCH 01/16/2024 00:40:00 28.2 27.0-34.0 (pg) Final MCHC 01/16/2024 00:40:00 31.7 32.0-36.0 (g/dL) Final RDW 01/16/2024 00:40:00 14.7 11.5-15.5 (%) Final Platelets 01/16/2024 00:40:00 240 140-400 (K/uL) Final MPV 01/16/2024 00:40:00 10.0 6.6-11.1 (fL) Final Nucleated erythrocytes/100 leukocytes [Ratio] in Blood by Automated count 01/16/2024 00:40:00 0 <=0 (/100 WBCs) Final Performing Location LAB[facility]ATORY [facility] [place] - [facility] [place] [address]
--- OUTSIDE RECORDS SUMMARY | 2024-01-19 07:56 | External Medical Summary ---
Author Name Unknown Address Unknown Organization K01:[facility] - [address] [place] [address] Laboratory Report Ordering Provider Test Date Status YA DEMARCO 01/16/2024 05:37:00 Final Observation Date Value Abnormality Reference (Units ) Status Magnesium 01/16/2024 05:37:00 2.2 1.5-2.6 (m g/dL) Final Performing Location [facility] - [address] [place] [address]
--- OUTSIDE RECORDS SUMMARY | 2024-01-19 07:56 | External Medical Summary ---
Author Name Unknown Address Unknown Organization K01:[facility] - [address] [place] [address] Laboratory Report Ordering Provider Test Date Status YA DEMARCO 01/16/2024 05:37:00 Final Observation Date Value Abnormality Reference (Units ) Status Phosphate 01/16/2024 05:37:00 4.7 2.5-4.8 (m g/dL) Final Performing Location [facility] - [address] [place] [address]
--- OUTSIDE RECORDS SUMMARY | 2024-01-19 07:56 | External Medical Summary ---
Author Name Unknown Address Unknown Organization K01:LABORATORY [facility] - [address] [place] [address] Laboratory Report Ordering Provider Test Date Status DEEPTI GARRIDO 01/15/2024 04:21:00 Correction Observation Date Value Abnormality Reference (Units ) Status ABO 01/15/2024 04:21:00 O Final RH 01/15/2024 04:21:00 Negative Final RED BLOOD CELL ANTIBODY SCREEN 01/15/2024 04:21:00 Negative Correction This result is revised from result, resulted on 01/15/2024 9:57:05 SPECIMEN EXPIRATION DATE 01/15/2024 04:21:00 01/18/2024 23:5 9 Final Performing Location LABORATORY [facility] - [address] [place] [address]
--- OUTSIDE RECORDS SUMMARY | 2024-01-19 07:56 | External Medical Summary ---
Author Name Unknown Address Unknown Organization : Laboratory Report Ordering Provider Test Date Status ANGELA GARCIA 01/15/2024 07:29:36 Final Observation Date Value Abnormality Reference (Units ) Status Glucose Point of Care 01/15/2024 07:29:36 161 Above high normal 70-120 (mg/dL) Final Performing Location
--- OUTSIDE RECORDS SUMMARY | 2024-01-19 07:56 | External Medical Summary ---
Author Name Unknown Address Unknown Organization K01:LABORATORY [facility] - [address] [place] [address] Laboratory Report Ordering Provider Test Date Status YA DEMARCO 01/16/2024 05:37:00 Final Warfarin Therapy
INR: 2 .0-3.0 conventional anticoagulation
INR: 2.5- 3.5 high intensity anticoagulation Observation Date Value Abnormality Reference (Units ) Status PT 01/16/2024 05:37:00 13.8 11.6-15.2 (seconds) Final INR 01/16/2024 05:37:00 1.1 0.8-1.2 Final Performing Location LABORATORY [facility] - [address] [place] [address]
--- OUTSIDE RECORDS SUMMARY | 2024-01-19 07:56 | External Medical Summary ---
Author Name Unknown Address Unknown Organization K01:LABORATORY [facility] [place] - [facility] [address] [place] [address] Laboratory Report Ordering Provider Test Date Status YA DEMARCO 01/16/2024 05:37:00 Final Observation Date Value Abnormality Reference (Units ) Status BUN 01/16/2024 05:37:00 28 Above high normal 6-20 (mg/dL) Final Creatinine 01/16/2024 05:37:00 1.0 0.6-1.2 (mg/dL) Final Glomerular filtration rate/1.73 sq M.predicted [Volume Rate/Area] in Serum, Plasma or Blood by Creatinine-based formula (CKD-EPI) 01/16/2024 05:37:00 74 >=60 (mL/min) Final eGFR is calculated based on the CKD-EPI 2020 equation. Sodium 01/16/2024 05:37:00 136 135-146 (m mol/L) Final Potassium 01/16/2024 05:37:00 4.5 3.5-5.1 (m mol/L) Final Cl 01/16/2024 05:37:00 101 98-107 (mm ol/L) Final CO2 01/16/2024 05:37:00 21 Below low normal 22- 32 (mmol/L) Final Anion gap 01/16/2024 05:37:00 14 7-15 (mmol /L) Final Glucose 01/16/2024 05:37:00 190 Above high normal 70 -120 (mg/dL) Final Calcium 01/16/2024 05:37:00 8.9 8.4-10.2 ( mg/dL) Final Performing Location LABORATORY [facility] [place] - [address] [place] [address]
--- OUTSIDE RECORDS SUMMARY | 2024-01-19 07:56 | External Medical Summary ---
Author Name Unknown Address Unknown Organization : Laboratory Report Ordering Provider Test Date Status ANGELA GARCIA 01/15/2024 11:22:57 Final Observation Date Value Abnormality Reference (Units ) Status Glucose Point of Care 01/15/2024 11:22:57 212 Above high normal 70-120 (mg/dL) Final Performing Location
--- OUTSIDE RECORDS SUMMARY | 2024-01-19 07:57 | External Medical Summary ---
Author Name Unknown Address Unknown Organization K01:LABORATORY [facility] - [address] [place] [address] Laboratory Report Ordering Provider Test Date Status DEEPTI GARRIDO 01/12/2024 11:13:00 Final Observation Date Value Abnormality Reference (Units ) Status Lactic Acid 01/12/2024 11:13:00 1.7 0.4-2.0 (mmol/L) Final Performing Location LABORATORY [facility] - [address] [place] [address]
--- OUTSIDE RECORDS SUMMARY | 2024-01-19 07:57 | External Medical Summary ---
Author Name Unknown Address Unknown Organization : Laboratory Report Ordering Provider Test Date Status ANGELA GARCIA 01/14/2024 20:55:42 Final Observation Date Value Abnormality Reference (Units ) Status Glucose Point of Care 01/14/2024 20:55:42 240 Above high normal 70-120 (mg/dL) Final Performing Location
--- OUTSIDE RECORDS SUMMARY | 2024-01-19 07:57 | External Medical Summary ---
Author Name Unknown Address Unknown Organization K01:[facility] [place] [address] [place] [address] Laboratory Report Ordering Provider Test Date Status YA DEMARCO 01/12/2024 05:15:00 Final Observation Date Value Abnormality Reference (Units ) Status BUN 01/12/2024 05:15:00 16 6-20 (mg/dL) Final Creatinine 01/12/2024 05:15:00 0.8 0.6-1.2 (mg/dL) Final Glomerular filtration rate/1.73 sq M.predicted [Volume Rate/Area] in Serum, Plasma or Blood by Creatinine-based formula (CKD-EPI) 01/12/2024 05:15:00 87 >=60 (mL/min) Final eGFR is calculated based on the CKD-EPI 2020 equation. Sodium 01/12/2024 05:15:00 135 135-146 (m mol/L) Final Potassium 01/12/2024 05:15:00 4.2 3.5-5.1 (m mol/L) Final Cl 01/12/2024 05:15:00 102 98-107 (mm ol/L) Final CO2 01/12/2024 05:15:00 23 22-32 (mmo l/L) Final Anion gap 01/12/2024 05:15:00 10 7-15 (mmol /L) Final Glucose 01/12/2024 05:15:00 168 Above high normal 70 -120 (mg/dL) Final Calcium 01/12/2024 05:15:00 8.4 8.4-10.2 ( mg/dL) Final Performing Location [facility] [place] [address] [place] [address]
--- OUTSIDE RECORDS SUMMARY | 2024-01-19 07:57 | External Medical Summary ---
Author Name Unknown Address Unknown Organization : Laboratory Report Ordering Provider Test Date Status ANGELA GARCIA 01/12/2024 21:21:05 Final Observation Date Value Abnormality Reference (Units ) Status Glucose Point of Care 01/12/2024 21:21:05 200 Above high normal 70-120 (mg/dL) Final Performing Location
--- OUTSIDE RECORDS SUMMARY | 2024-01-19 07:57 | External Medical Summary ---
Author Name Unknown Address Unknown Organization K01:[facility]ORY [facility] [place] [address] [place] [address] Laboratory Report Ordering Provider Test Date Status YA DEMARCO 01/13/2024 07:22:00 Final Warfarin Therapy
INR: 2 .0-3.0 conventional anticoagulation
INR: 2.5- 3.5 high intensity anticoagulation Observation Date Value Abnormality Reference (Units ) Status PT 01/13/2024 07:22:00 13.5 11.6-15.2 (seconds) Final INR 01/13/2024 07:22:00 1.0 0.8-1.2 Final Performing Location [facility] [place] [address] [place] [address]
--- OUTSIDE RECORDS SUMMARY | 2024-01-19 07:57 | External Medical Summary ---
Author Name Unknown Address Unknown Organization K01:[facility]ORY [facility] [place] - [facility] [place] [address] Laboratory Report Ordering Provider Test Date Status SAMMI ALBERTO 01/11/2024 16:32:00 Final Observation Date Value Abnormality Reference (Units ) Status WBC, Total 01/11/2024 16:32:00 8.95 4.00-10.80 (K/uL) Final RBC 01/11/2024 16:32:00 3.51 4.50-5.25 (M/uL) Final Hemoglobin 01/11/2024 16:32:00 9.6 Below low normal 14.0-16.8 (g/dL) Final HCT 01/11/2024 16:32:00 30.9 Below low normal 40.0-48.4 (%) Final MCV 01/11/2024 16:32:00 88.0 82.0-99.5 (fL) Final MCH 01/11/2024 16:32:00 27.4 27.0-34.0 (pg) Final MCHC 01/11/2024 16:32:00 31.1 32.0-36.0 (g/dL) Final RDW 01/11/2024 16:32:00 14.1 11.5-15.5 (%) Final Platelets 01/11/2024 16:32:00 182 140-400 (K/uL) Final MPV 01/11/2024 16:32:00 9.6 6.6-11.1 (fL) Final Nucleated erythrocytes/100 leukocytes [Ratio] in Blood by Automated count 01/11/2024 16:32:00 0 <=0 (/100 WBCs) Final Performing Location LABORATORY [facility] [place] - [address] [place] [address]
--- OUTSIDE RECORDS SUMMARY | 2024-01-19 07:57 | External Medical Summary ---
Author Name Unknown Address Unknown Organization : Laboratory Report Ordering Provider Test Date Status ANGELA GARCIA 01/13/2024 14:03:55 Final NORMAL (NON-HEPARINIZED) 74- 137 SECONDS
HEPARINIZED 200+ SECONDS
CRITICAL GREATER THAN 1000 SECONDS
null Observation Date Value Abnormality Reference (Units ) Status Kaolin activated time [Units/volume] in Blood 01/13/2024 14:03:55 239 50-1000 (secs) Final Performing Location
--- OUTSIDE RECORDS SUMMARY | 2024-01-19 07:57 | External Medical Summary ---
Author Name Unknown Address Unknown Organization : Laboratory Report Ordering Provider Test Date Status ANGELA GARCIA 01/11/2024 11:22:55 Final Observation Date Value Abnormality Reference (Units ) Status Glucose Point of Care 01/11/2024 11:22:55 205 Above high normal 70-120 (mg/dL) Final Performing Location
--- OUTSIDE RECORDS SUMMARY | 2024-01-19 07:57 | External Medical Summary ---
Author Name Unknown Address Unknown Organization K01:LABORATORY [facility] [place] - [address] [place] [address] Laboratory Report Ordering Provider Test Date Status YA DEMARCO 01/15/2024 04:21:00 Final Observation Date Value Abnormality Reference (Units ) Status BUN 01/15/2024 04:21:00 20 6-20 (mg/dL) Final Creatinine 01/15/2024 04:21:00 0.8 0.6-1.2 (mg/dL) Final Glomerular filtration rate/1.73 sq M.predicted [Volume Rate/Area] in Serum, Plasma or Blood by Creatinine-based formula (CKD-EPI) 01/15/2024 04:21:00 86 >=60 (mL/min) Final eGFR is calculated based on the CKD-EPI 2020 equation. Sodium 01/15/2024 04:21:00 134 Below low normal 135 -146 (mmol/L) Final Potassium 01/15/2024 04:21:00 4.6 3.5-5.1 (m mol/L) Final Cl 01/15/2024 04:21:00 101 98-107 (mm ol/L) Final CO2 01/15/2024 04:21:00 21 Below low normal 22- 32 (mmol/L) Final Anion gap 01/15/2024 04:21:00 12 7-15 (mmol /L) Final Glucose 01/15/2024 04:21:00 166 Above high normal 70 -120 (mg/dL) Final Calcium 01/15/2024 04:21:00 8.9 8.4-10.2 ( mg/dL) Final Performing Location LABORATORY [facility] [place] - [address] [place] [address]
--- OUTSIDE RECORDS SUMMARY | 2024-01-19 07:57 | External Medical Summary ---
Author Name Unknown Address Unknown Organization K01:LABORATORY [facility] - [address] [place] [address] Laboratory Report Ordering Provider Test Date Status DEEPTI GARRIDO 01/12/2024 06:25:00 Final Observation Date Value Abnormality Reference (Units ) Status ABO 01/12/2024 06:25:00 O Final RH 01/12/2024 06:25:00 Negative Final RED BLOOD CELL ANTIBODY SCREEN 01/12/2024 06:25:00 Negative Final SPECIMEN EXPIRATION DATE 01/12/2024 06:25:00 01/15/2024 23:59 Final Performing Location LABORATORY [facility] - [address] [place] [address]
--- OUTSIDE RECORDS SUMMARY | 2024-01-19 07:57 | External Medical Summary ---
Author Name Unknown Address Unknown Organization : Laboratory Report Ordering Provider Test Date Status ANGELA GARCIA 01/13/2024 15:18:14 Final NORMAL (NON-HEPARINIZED) 74- 137 SECONDS
HEPARINIZED 200+ SECONDS
CRITICAL GREATER THAN 1000 SECONDS
null Observation Date Value Abnormality Reference (Units ) Status Kaolin activated time [Units/volume] in Blood 01/13/2024 15:18:14 239 50-1000 (secs) Final Performing Location
--- OUTSIDE RECORDS SUMMARY | 2024-01-19 07:57 | External Medical Summary ---
Author Name Unknown Address Unknown Organization K01:LABORATORY [facility] [place] - [address] [place] [address] Laboratory Report Ordering Provider Test Date Status DEEPTI GARRIDO 01/12/2024 18:16:00 Final Observation Date Value Abnormality Reference (Units ) Status Hemoglobin 01/12/2024 18:16:00 8.7 Below low normal 14 .0-16.8 (g/dL) Final HCT 01/12/2024 18:16:00 28.4 Below low normal 40. 0-48.4 (%) Final Performing Location LABORATORY [facility] [place] - [address] [place] [address]
--- OUTSIDE RECORDS SUMMARY | 2024-01-19 07:57 | External Medical Summary ---
Author Name Unknown Address Unknown Organization K01:[facility] [place] [address] [place] [address] Laboratory Report Ordering Provider Test Date Status YA DEMARCO 01/14/2024 06:01:00 Final Observation Date Value Abnormality Reference (Units ) Status BUN 01/14/2024 06:01:00 18 6-20 (mg/dL) Final Creatinine 01/14/2024 06:01:00 0.7 0.6-1.2 (mg/dL) Final Glomerular filtration rate/1.73 sq M.predicted [Volume Rate/Area] in Serum, Plasma or Blood by Creatinine-based formula (CKD-EPI) 01/14/2024 06:01:00 >90 >=60 (mL/min) Final eGFR is calculated based on the CKD-EPI 2020 equation. Sodium 01/14/2024 06:01:00 133 Below low normal 135 -146 (mmol/L) Final Potassium 01/14/2024 06:01:00 4.5 3.5-5.1 (m mol/L) Final Cl 01/14/2024 06:01:00 100 98-107 (mm ol/L) Final CO2 01/14/2024 06:01:00 21 Below low normal 22- 32 (mmol/L) Final Anion gap 01/14/2024 06:01:00 12 7-15 (mmol /L) Final Glucose 01/14/2024 06:01:00 201 Above high normal 70 -120 (mg/dL) Final Calcium 01/14/2024 06:01:00 8.5 8.4-10.2 ( mg/dL) Final Performing Location [facility] [place] [address] [place] [address]
--- OUTSIDE RECORDS SUMMARY | 2024-01-19 07:57 | External Medical Summary ---
Author Name Unknown Address Unknown Organization K01:[facility] [place] [address] [place] [address] Laboratory Report Ordering Provider Test Date Status YA DEMARCO 01/14/2024 06:02:00 Final Warfarin Therapy
INR: 2 .0-3.0 conventional anticoagulation
INR: 2.5- 3.5 high intensity anticoagulation Observation Date Value Abnormality Reference (Units ) Status PT 01/14/2024 06:02:00 13.9 11.6-15.2 (seconds) Final INR 01/14/2024 06:02:00 1.1 0.8-1.2 Final Performing Location [facility] [place] [address] [place] [address]
--- OUTSIDE RECORDS SUMMARY | 2024-01-19 07:57 | External Medical Summary ---
Author Name Unknown Address Unknown Organization K01:[facility]ORY [facility] [place] - [facility] [place] [address] Laboratory Report Ordering Provider Test Date Status YA DEMARCO 01/13/2024 07:22:00 Final Observation Date Value Abnormality Reference (Units ) Status WBC, Total 01/13/2024 07:22:00 6.80 4.00-10.80 (K/uL) Final RBC 01/13/2024 07:22:00 3.04 4.50-5.25 (M/uL) Final Hemoglobin 01/13/2024 07:22:00 8.5 Below low normal 14.0-16.8 (g/dL) Final HCT 01/13/2024 07:22:00 26.5 Below low normal 40.0-48.4 (%) Final MCV 01/13/2024 07:22:00 87.2 82.0-99.5 (fL) Final MCH 01/13/2024 07:22:00 28.0 27.0-34.0 (pg) Final MCHC 01/13/2024 07:22:00 32.1 32.0-36.0 (g/dL) Final RDW 01/13/2024 07:22:00 14.3 11.5-15.5 (%) Final Platelets 01/13/2024 07:22:00 167 140-400 (K/uL) Final MPV 01/13/2024 07:22:00 9.5 6.6-11.1 (fL) Final Nucleated erythrocytes/100 leukocytes [Ratio] in Blood by Automated count 01/13/2024 07:22:00 0 <=0 (/100 WBCs) Final Performing Location LABOR[facility]ORY [facility] [place] [address] [place] [address]
--- OUTSIDE RECORDS SUMMARY | 2024-01-19 07:57 | External Medical Summary ---
Author Name Unknown Address Unknown Organization : Laboratory Report Ordering Provider Test Date Status ANGELA GARCIA 01/13/2024 21:08:20 Final Observation Date Value Abnormality Reference (Units ) Status Glucose Point of Care 01/13/2024 21:08:20 245 Above high normal 70-120 (mg/dL) Final Performing Location
--- OUTSIDE RECORDS SUMMARY | 2024-01-19 07:57 | External Medical Summary ---
Author Name Unknown Address Unknown Organization : Laboratory Report Ordering Provider Test Date Status ANGELA GARCIA 01/11/2024 16:29:04 Final Observation Date Value Abnormality Reference (Units ) Status Glucose Point of Care 01/11/2024 16:29:04 214 Above high normal 70-120 (mg/dL) Final Performing Location
--- OUTSIDE RECORDS SUMMARY | 2024-01-19 07:57 | External Medical Summary ---
Author Name Unknown Address Unknown Organization K01:[facility] - [address] [place] [address] Laboratory Report Ordering Provider Test Date Status YA DEMARCO 01/14/2024 06:01:00 Final Observation Date Value Abnormality Reference (Units ) Status Magnesium 01/14/2024 06:01:00 1.9 1.5-2.6 (m g/dL) Final Performing Location [facility] - [address] [place] [address]
--- OUTSIDE RECORDS SUMMARY | 2024-01-19 07:57 | External Medical Summary ---
Author Name Unknown Address Unknown Organization K01:[facility] - [address] [place] [address] Laboratory Report Ordering Provider Test Date Status YA DEMARCO 01/13/2024 07:22:00 Final Observation Date Value Abnormality Reference (Units ) Status Magnesium 01/13/2024 07:22:00 1.9 1.5-2.6 (m g/dL) Final Performing Location [facility] - [address] [place] [address]
--- OUTSIDE RECORDS SUMMARY | 2024-01-19 07:57 | External Medical Summary ---
Author Name Unknown Address Unknown Organization : Laboratory Report Ordering Provider Test Date Status ANGELA GARCIA 01/14/2024 07:59:55 Final Observation Date Value Abnormality Reference (Units ) Status Glucose Point of Care 01/14/2024 07:59:55 195 Above high normal 70-120 (mg/dL) Final Performing Location
--- OUTSIDE RECORDS SUMMARY | 2024-01-19 07:57 | External Medical Summary ---
Author Name Unknown Address Unknown Organization [id number]:LABORATORY [facility] [place] - [facility] [address] [facility] [address] Laboratory Report Ordering Provider Test Date Status ASHLEIGHLYRICANGELA 01/12/2024 06:25:00 Final Observation Date Value Abnormality Reference (Units) Status Blood group antibody investigation [Interpretation] in Plasma or RBC 01/12/2024 06:25:00 Findings: Final Blood group antibody investigation [Interpretation] in Plasma or RBC 01/12/2024 06:25:00 Final Blood group antibody investigation [Interpretation] in Plasma or RBC 01/12/2024 06:25:00 Non-specific reactivity. Final Blood group antibody investigation [Interpretation] in Plasma or RBC 01/12/2024 06:25:00 Final Blood group antibody investigation [Interpretation] in Plasma or RBC 01/12/2024 06:25:00 A nonspecific antibody is identified in gel only (the most sensitive screening method). While alloantibodies can be a consequence of previous transfusion or , a non-specific antibody in gel is highly unlikely to be clinically significant (i.e., cause a hemolytic transfusion reaction or hemolytic disease of the fetus/). If transfusion is necessary, the patient will receive ABO compatible units. Final Performing Location LABORATORY [facility] - [address] [place] [address]
--- OUTSIDE RECORDS SUMMARY | 2024-01-19 07:57 | External Medical Summary ---
Author Name Unknown Address Unknown Organization [id number]:LABORATORY [facility] [place] - [address] [place] [address] Laboratory Report Ordering Provider Test Date Status YA DEMARCO 01/12/2024 05:15:00 Final Warfarin Therapy
INR: 2 .0-3.0 conventional anticoagulation
INR: 2.5- 3.5 high intensity anticoagulation Observation Date Value Abnormality Reference (Units ) Status PT 01/12/2024 05:15:00 13.3 11.6-15.2 (seconds) Final INR 01/12/2024 05:15:00 1.0 0.8-1.2 Final Performing Location LABORATORY [facility] [place] - [address] [place] [address]
--- OUTSIDE RECORDS SUMMARY | 2024-01-19 07:57 | External Medical Summary ---
Author Name Unknown Address Unknown Organization : Laboratory Report Ordering Provider Test Date Status ANGELA GARCIA 01/13/2024 14:33:36 Final NORMAL (NON-HEPARINIZED) 74- 137 SECONDS
HEPARINIZED 200+ SECONDS
CRITICAL GREATER THAN 1000 SECONDS
null Observation Date Value Abnormality Reference (Units ) Status Kaolin activated time [Units/volume] in Blood 01/13/2024 14:33:36 239 50-1000 (secs) Final Performing Location
--- OUTSIDE RECORDS SUMMARY | 2024-01-19 07:57 | External Medical Summary ---
Author Name Unknown Address Unknown Organization : Laboratory Report Ordering Provider Test Date Status ANGELA GARCIA 01/12/2024 08:02:55 Final Observation Date Value Abnormality Reference (Units ) Status Glucose Point of Care 01/12/2024 08:02:55 162 Above high normal 70-120 (mg/dL) Final Performing Location
--- OUTSIDE RECORDS SUMMARY | 2024-01-19 07:57 | External Medical Summary ---
Author Name Unknown Address Unknown Organization K01:LABORATORY [facility] - [address] [place] [address] Laboratory Report Ordering Provider Test Date Status YA DEMARCO 01/12/2024 05:15:00 Final Observation Date Value Abnormality Reference (Units ) Status Phosphate 01/12/2024 05:15:00 3.5 2.5-4.8 (m g/dL) Final Performing Location LABORATORY [facility] - [address] [place] [id number]
--- OUTSIDE RECORDS SUMMARY | 2024-01-19 07:57 | External Medical Summary ---
Author Name Unknown Address Unknown Organization : Laboratory Report Ordering Provider Test Date Status ANGELA GARCIA 01/14/2024 12:00:25 Final Observation Date Value Abnormality Reference (Units ) Status Glucose Point of Care 01/14/2024 12:00:25 171 Above high normal 70-120 (mg/dL) Final Performing Location
--- OUTSIDE RECORDS SUMMARY | 2024-01-19 07:57 | External Medical Summary ---
Author Name Unknown Address Unknown Organization K01:LABORATORY [facility] - [address] [place] [address] Laboratory Report Ordering Provider Test Date Status YA DEMARCO 01/15/2024 04:21:00 Final Observation Date Value Abnormality Reference (Units ) Status Phosphate 01/15/2024 04:21:00 4.4 2.5-4.8 (m g/dL) Final Performing Location LABORATORY [facility] - [address] [place] [address]
--- OUTSIDE RECORDS SUMMARY | 2024-01-19 07:57 | External Medical Summary ---
Author Name Unknown Address Unknown Organization : Laboratory Report Ordering Provider Test Date Status ANGELA GARCIA 01/13/2024 16:37:05 Final Observation Date Value Abnormality Reference (Units ) Status Glucose Point of Care 01/13/2024 16:37:05 160 Above high normal 70-120 (mg/dL) Final Performing Location
--- OUTSIDE RECORDS SUMMARY | 2024-01-19 07:57 | External Medical Summary ---
Author Name Unknown Address Unknown Organization K01:LABORATORY [facility] [place] - [address] [place] [address] Laboratory Report Ordering Provider Test Date Status DEEPTI GARRIDO 01/13/2024 22:14:00 Final Observation Date Value Abnormality Reference (Units ) Status Hemoglobin 01/13/2024 22:14:00 8.3 Below low normal 14 .0-16.8 (g/dL) Final HCT 01/13/2024 22:14:00 26.2 Below low normal 40. 0-48.4 (%) Final Performing Location LABORATORY [facility] - [address] [place] [address]
--- OUTSIDE RECORDS SUMMARY | 2024-01-19 07:57 | External Medical Summary ---
Author Name Unknown Address Unknown Organization K01:[place] [place] - [facility] [address] [facility] [address] Laboratory Report Ordering Provider Test Date Status YA DEMARCO 01/12/2024 05:15:00 Final Get Heparin, unfractionated (Xa) level 6 hours after start of infusion and 6 hours after each dose adjustment Observation Date Value Abnormality Reference (Units ) Status Heparin, unfractionated level 01/12/2024 05:15:00 0.43 Above high normal <0.10 (IU/mL) Final Unfractionated therapeutic r anges for Anti Xa activity:
For Cardiac/Neurologic treatment: 0.3 to 0.6 IU/mL.
For treatment of DVT or Pulmonary Embolism: 0.3 to 0.7 IU/mL. Performing Location LABORATORY [facility] [place] - [facility] [address] [facility] [address]
--- OUTSIDE RECORDS SUMMARY | 2024-01-19 07:57 | External Medical Summary ---
Author Name Unknown Address Unknown Organization : Laboratory Report Ordering Provider Test Date Status ANGELA GARCIA 01/13/2024 11:33:56 Final Observation Date Value Abnormality Reference (Units ) Status Glucose Point of Care 01/13/2024 11:33:56 148 Above high normal 70-120 (mg/dL) Final Performing Location
--- OUTSIDE RECORDS SUMMARY | 2024-01-19 07:57 | External Medical Summary ---
Author Name Unknown Address Unknown Organization : Laboratory Report Ordering Provider Test Date Status ANGELA GARCIA 01/11/2024 08:30:03 Final Observation Date Value Abnormality Reference (Units ) Status Glucose Point of Care 01/11/2024 08:30:03 157 Above high normal 70-120 (mg/dL) Final Performing Location
--- OUTSIDE RECORDS SUMMARY | 2024-01-19 07:57 | External Medical Summary ---
Author Name Unknown Address Unknown Organization K01:LABORATORY [facility] - [address] [place] [address] Laboratory Report Ordering Provider Test Date Status YA DEMARCO 01/12/2024 05:15:00 Final Observation Date Value Abnormality Reference (Units ) Status Magnesium 01/12/2024 05:15:00 1.9 1.5-2.6 (m g/dL) Final Performing Location LABORATORY [facility] - [address] [place] [address]
--- OUTSIDE RECORDS SUMMARY | 2024-01-19 07:57 | External Medical Summary ---
Author Name Unknown Address Unknown Organization K01:LABORATORY [facility] - [address] [place] [address] Laboratory Report Ordering Provider Test Date Status YA DEMARCO 01/14/2024 06:01:00 Final Observation Date Value Abnormality Reference (Units ) Status Phosphate 01/14/2024 06:01:00 3.6 2.5-4.8 (m g/dL) Final Performing Location LABORATORY [facility] - [address] [place] [address]
--- OUTSIDE RECORDS SUMMARY | 2024-01-19 07:57 | External Medical Summary | Summary of Care ---
Author Name Unknown Organization [facility] Address [address] [place] [address] Phone [phone] Care Team Providers Care Coastal And Estuary Specialist Name Role Phone Elvis Flores MD Primary Care Provider [phone] Encounter Details Date Type Department Care Team (Late st Contact Info) Description 01/13/2024 Population Health External Data Unspecified Department Allergies No known active allergiesdocumented as of this encounter (statuses as of 01/13/2024) Medications ONE TOUCH ULTRA BONUS PACK KITIndications [...] as of this encounter (statuses as of 01/13/2024) Active Problems Problem Noted Date Diagnosed Date Hematuria, gross 01/10/2024 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 01/10/2024 Encounter for dental examination 01/10/2024 [...] as of this encounter (statuses as of 01/13/2024) Resolved Problems Problem Noted Date Diagnosed Date [...] as of this encounter (statuses as of 01/13/2024) Immunizations Name Administration Dates Next Due COVID-19 [...] Entry Date Author No 01/08/2024 10:54 PM EST Antonieta Thomas RN documented in this encounter Plan of Treatment Upcoming Encounters Date Type Department Care Team (Late st Contact Info) Description 03/06/2024 9:40 AM EST Office Visit Family Practice, [facility] [address] [place] [phone] Elvis Flores MD [address] [facility] [address] [place] [address] 11/11/2024 9:30 AM EDT Cardiac Studies Cardiac Studies, [facility] [address] [facility] [place] [address] Scheduled Procedures Name Priority Associated Diagnoses Date/Ti me PTCA, CARDIAC ANGIOPLASTY, PERCUTANEOUS, 1 ARTERY Ventricular fibrillation (HCC) Health Maintenance Due Date Last Done Comments Adult Wellness Visit 08/03/2022 08/03/2021 COVID-19 Vaccine ( season) 2023 01/20/2022, 12/15/2020, 05/19/2020, Additional history exists Depression Screening 09/03/2024 09/04/2023 B-12 09/04/2024 09/05/2023, 07/13, 09/14/2021, Additional history exists GFR 01/11/2025 01/13/2024, 02/2023, 01/11/2024, Additional history exists Albumin/Creatinine Ratio 09/04/2026 024, [...] Not on filedocumented as of this encounter Advance Directives * Full Code (Latest Code Status on File) Date Activated Date Inactivated Comments 01/08/2024 10:30 PM This order r eflects the patients wishes and were consensually agreed upon. Question Answer Comments Discussion of Advance Directives occurred with: Patient Care Teams Coastal And Estuary Specialist Relationship Specialty Start Date End Date Elvis Flores MD [address] [place] [address] PCP - General 06/09/1998 documented as of this encounter
--- OUTSIDE RECORDS SUMMARY | 2024-01-19 07:57 | External Medical Summary ---
Author Name Unknown Address Unknown Organization K01:LABORATORY [facility] - [address] [place] [address] Laboratory Report Ordering Provider Test Date Status YA DEMARCO 01/13/2024 07:22:00 Final Observation Date Value Abnormality Reference (Units ) Status BUN 01/13/2024 07:22:00 15 6-20 (mg/dL) Final Creatinine 01/13/2024 07:22:00 0.7 0.6-1.2 (mg/dL) Final Glomerular filtration rate/1.73 sq M.predicted [Volume Rate/Area] in Serum, Plasma or Blood by Creatinine-based formula (CKD-EPI) 01/13/2024 07:22:00 >90 >=60 (mL/min) Final eGFR is calculated based on the CKD-EPI 2020 equation. Sodium 01/13/2024 07:22:00 133 Below low normal 135 -146 (mmol/L) Final Potassium 01/13/2024 07:22:00 4.3 3.5-5.1 (m mol/L) Final Cl 01/13/2024 07:22:00 100 98-107 (mm ol/L) Final CO2 01/13/2024 07:22:00 23 22-32 (mmo l/L) Final Anion gap 01/13/2024 07:22:00 10 7-15 (mmol /L) Final Glucose 01/13/2024 07:22:00 191 Above high normal 70 -120 (mg/dL) Final Calcium 01/13/2024 07:22:00 8.7 8.4-10.2 ( mg/dL) Final Performing Location LABORATORY [facility] - [address] [place] [address]
--- OUTSIDE RECORDS SUMMARY | 2024-01-19 07:57 | External Medical Summary | Summary of Care ---
Author Name Unknown Organization [facility] Address [address] [place] [address] Phone [phone] Care Team Providers Care Apartment Maintenance Name Role Phone Elvis Flores MD Primary Care Provider [phone] Reason for Visit * Auth/Cert Specialty Diagnoses / Procedures Referred By Aron reyes Referred To Contact Diagnoses aortic stenosis Bradly Miguel MD [address] [place] [address] Phone: tel: fax: Admissions, [facility] [address] [place] [address] Referral ID Status Reason Start Date Expiration Date Visits Re quested Visits Authorized [id number] Encounter Details Date Type Department Care Team (Latest Contact Info) Description 01/10/2024 1:34 PM EST - 01/10/2024 11:59 PM EST Hospital Encounter Cardiac Studies 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 01/10/2024 Encounter for dental examination 01/10/2024 [...] as of this encounter (statuses as of 01/11/2024) Resolved Problems Problem Noted Date Diagnosed Date [...] as of this encounter (statuses as of 01/11/2024) Immunizations Name Administration Dates Next Due COVID-19 [...] Antonieta Mejia RN documented in this encounter Plan of Treatment Upcoming Encounters Date Type Department Care Team (Late st Contact Info) Description 03/06/2024 9:40 AM EST Office Visit [facility] [place] [address] [address] [phone] Elvis Flores MD [address] [address] 11/11/2024 9:30 AM EDT Cardiac Studies Cardiac Studies, [facility] [address] [facility] [place] [address] Health Maintenance Due Date Last Done Comments Adult Wellness Visit 08/03/2022 08/03/2021 COVID-19 Vaccine ( season) 2023 01/20/2022, 12/15/2020, 05/19/2020, Additional history exists Depression Screening 09/03/2024 09/04/2023 B-12 09/04/2024 09/05/2023, 07/13, 09/14/2021, Additional history exists GFR 01/10/2025 01/11/2024, 12/13, 01/09/2024, Additional history exists Albumin/Creatinine Ratio 09/04/2026 024, [...] Not on filedocumented as of this encounter Procedures Procedure Name Priority Date/Time Associated Diagnosis Comments ECHO, COMPLETE (2D), TRANS-THORACIC Routine 01/10/2024 1:36 PM EST Heart failure (HCC) documented in this encounter Visit Diagnoses Diagnosis 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 without angina pectoris- Primary NSTEMI (non-ST elevated myocardial infarction) (HCC) Acute myocardial infarction, subendocardial infarction, episode of care unspecified History of cardiac arrest Personal history of sudden cardiac arrest documented in this encounter Administered Medications Inactive Administered Medications - up to 3 most recent administrations Medication Order MAR Action Action Date Dose Rate Site perflutren lipid microsphere inj SUSP 1.956 mg 1.956 mg, Intravenous, ONCE PRN Other, For Echo Only - Suboptimal Echo Images, Starting on Sat01/10/24 at 1335, Until Sat01/10/24 at 1534, For 2 hours, Administer IVP over 45 seconds, Cardiac Studies_HODHOVIndications:Leone ry artery disease involving cowlitz coronary artery of cowlitz heart without angina pectoris,NSTEMI (non-ST elevated myocardial infarction) (HCC),History of cardiac arrest Given 01/10/2024 1:35 PM EST 1.956 mg documented in this encounter Advance Directives * Full Code (Latest Code Status on File) Date Activated Date Inactivated Comments 01/08/2024 10:30 PM This order r eflects the patients wishes and were consensually agreed upon. Question Answer Comments Discussion of Advance Directives occurred with: Patient Care Teams Apartment Maintenance Relationship Specialty Start Date End Date Elvis Flores MD [address] [place] [address] PCP - General 06/09/1998 documented as of this encounter
--- OUTSIDE RECORDS SUMMARY | 2024-01-19 07:57 | External Medical Summary ---
Author Name Unknown Address Unknown Organization K01:LABORATORY [place] [address] [address] [facility] [place] [address] Laboratory Report Ordering Provider Test Date Status YA DEMARCO 01/11/2024 04:42:00 Final Observation Date Value Abnormality Reference (Units ) Status WBC, Total 01/11/2024 04:42:00 8.56 4.00-10.80 (K/uL) Final RBC 01/11/2024 04:42:00 3.55 4.50-5.25 (M/uL) Final Hemoglobin 01/11/2024 04:42:00 9.9 Below low normal 14.0-16.8 (g/dL) Final HCT 01/11/2024 04:42:00 30.5 Below low normal 40.0-48.4 (%) Final MCV 01/11/2024 04:42:00 85.9 82.0-99.5 (fL) Final MCH 01/11/2024 04:42:00 27.9 27.0-34.0 (pg) Final MCHC 01/11/2024 04:42:00 32.5 32.0-36.0 (g/dL) Final RDW 01/11/2024 04:42:00 14.0 11.5-15.5 (%) Final Platelets 01/11/2024 04:42:00 159 140-400 (K/uL) Final MPV 01/11/2024 04:42:00 9.9 6.6-11.1 (fL) Final Nucleated erythrocytes/100 leukocytes [Ratio] in Blood by Automated count 01/11/2024 04:42:00 0 <=0 (/100 WBCs) Final Performing Location LABORATORY [facility] [place] - [facility] [place] [address]
--- OUTSIDE RECORDS SUMMARY | 2024-01-19 07:57 | External Medical Summary ---
Author Name Unknown Address Unknown Organization : Laboratory Report Ordering Provider Test Date Status ANGELA GARCIA 01/12/2024 11:06:48 Final Observation Date Value Abnormality Reference (Units ) Status Glucose Point of Care 01/12/2024 11:06:48 207 Above high normal 70-120 (mg/dL) Final Performing Location
--- OUTSIDE RECORDS SUMMARY | 2024-01-19 07:57 | External Medical Summary ---
Author Name Unknown Address Unknown Organization : Laboratory Report Ordering Provider Test Date Status ANGELA GARCIA 01/13/2024 07:30:02 Final Observation Date Value Abnormality Reference (Units ) Status Glucose Point of Care 01/13/2024 07:30:02 178 Above high normal 70-120 (mg/dL) Final Performing Location
--- OUTSIDE RECORDS SUMMARY | 2024-01-19 07:57 | External Medical Summary ---
Author Name Unknown Address Unknown Organization K01:LABORATORY [facility] [place] - [facility] [place] [address] Laboratory Report Ordering Provider Test Date Status YA DEMARCO 01/12/2024 05:14:00 Final Observation Date Value Abnormality Reference (Units ) Status WBC, Total 01/12/2024 05:14:00 6.74 4.00-10.80 (K/uL) Final RBC 01/12/2024 05:14:00 3.15 4.50-5.25 (M/uL) Final Hemoglobin 01/12/2024 05:14:00 8.8 Below low normal 14.0-16.8 (g/dL) Final HCT 01/12/2024 05:14:00 27.1 Below low normal 40.0-48.4 (%) Final MCV 01/12/2024 05:14:00 86.0 82.0-99.5 (fL) Final MCH 01/12/2024 05:14:00 27.9 27.0-34.0 (pg) Final MCHC 01/12/2024 05:14:00 32.5 32.0-36.0 (g/dL) Final RDW 01/12/2024 05:14:00 14.1 11.5-15.5 (%) Final Platelets 01/12/2024 05:14:00 153 140-400 (K/uL) Final MPV 01/12/2024 05:14:00 9.8 6.6-11.1 (fL) Final Nucleated erythrocytes/100 leukocytes [Ratio] in Blood by Automated count 01/12/2024 05:14:00 0 <=0 (/100 WBCs) Final Performing Location LABORATORY [facility] - [address] [place] [address]
--- OUTSIDE RECORDS SUMMARY | 2024-01-19 07:57 | External Medical Summary ---
Author Name Unknown Address Unknown Organization K01:LABORATORY [facility] - [address] [place] [address] Laboratory Report Ordering Provider Test Date Status YA DEMARCO 01/13/2024 07:22:00 Final Observation Date Value Abnormality Reference (Units ) Status Phosphate 01/13/2024 07:22:00 3.6 2.5-4.8 (m g/dL) Final Performing Location LABORATORY [facility] - [address] [place] [address]
--- OUTSIDE RECORDS SUMMARY | 2024-01-19 07:57 | External Medical Summary ---
Author Name Unknown Address Unknown Organization : Laboratory Report Ordering Provider Test Date Status ANGELA GARCIA 01/12/2024 16:48:57 Final Observation Date Value Abnormality Reference (Units ) Status Glucose Point of Care 01/12/2024 16:48:57 168 Above high normal 70-120 (mg/dL) Final Performing Location
--- OUTSIDE RECORDS SUMMARY | 2024-01-19 07:57 | External Medical Summary ---
Author Name Unknown Address Unknown Organization : Laboratory Report Ordering Provider Test Date Status ANGELA GARCIA 01/14/2024 16:22:58 Final Observation Date Value Abnormality Reference (Units ) Status Glucose Point of Care 01/14/2024 16:22:58 147 Above high normal 70-120 (mg/dL) Final Performing Location
--- OUTSIDE RECORDS SUMMARY | 2024-01-19 07:57 | External Medical Summary ---
Author Name Unknown Address Unknown Organization K01:LABORATORY [facility] [place] [facility] - [address] [place] [address] Laboratory Report Ordering Provider Test Date Status DEEPTI GARRIDO 01/12/2024 06:25:00 Final Observation Date Value Abnormality Reference (Units ) Status ABO 01/12/2024 06:25:00 O Final RH 01/12/2024 06:25:00 Negative Final Performing Location LABORATORY [facility] [place] [facility] - [address] [place] [address]
--- OUTSIDE RECORDS SUMMARY | 2024-01-19 07:57 | External Medical Summary ---
Author Name Unknown Address Unknown Organization : Laboratory Report Ordering Provider Test Date Status ANGELA GARCIA 01/11/2024 21:04:32 Final Observation Date Value Abnormality Reference (Units ) Status Glucose Point of Care 01/11/2024 21:04:32 187 Above high normal 70-120 (mg/dL) Final Performing Location
--- OUTSIDE RECORDS SUMMARY | 2024-01-19 07:58 | External Medical Summary ---
Author Name Unknown Address Unknown Organization K01:[place] [facility] [facility] [place] [facility] [address] [facility] [address] [place] [address] Laboratory Report Ordering Provider Test Date Status YA DEMARCO 01/08/2024 22:44:05 Final Observation Date Value Abnormality Reference (Units ) Status BUN 01/08/2024 22:44:05 14 6-20 (mg/dL) Final Creatinine 01/08/2024 22:44:05 0.7 0.6-1.2 (mg/dL) Final Glomerular filtration rate/1.73 sq M.predicted [Volume Rate/Area] in Serum, Plasma or Blood by Creatinine-based formula (CKD-EPI) 01/08/2024 22:44:05 90 >=60 (mL/min) Final eGFR is calculated based on the CKD-EPI 2020 equation. Sodium 01/08/2024 22:44:05 139 135-146 (m mol/L) Final Potassium 01/08/2024 22:44:05 4.1 3.5-5.1 (m mol/L) Final Cl 01/08/2024 22:44:05 103 98-107 (mm ol/L) Final CO2 01/08/2024 22:44:05 19 Below low normal 22- 32 (mmol/L) Final Anion gap 01/08/2024 22:44:05 17 Above high normal 7- 15 (mmol/L) Final Glucose 01/08/2024 22:44:05 150 Above high normal 70 -120 (mg/dL) Final Calcium 01/08/2024 22:44:05 8.5 8.4-10.2 ( mg/dL) Final Performing Location [place] [facility] [facility] [place] [address] [place] [address]
--- OUTSIDE RECORDS SUMMARY | 2024-01-19 07:58 | External Medical Summary ---
Author Name Unknown Address Unknown Organization K01:LABORATORY [facility] [place] - [facility] [address] [facility] [address] Laboratory Report Ordering Provider Test Date Status DVAYA 01/08/2024 22:44:05 Final Observation Date Value Abnormality Reference (Units ) Status Heparin, unfractionated level 01/08/2024 22:44:05 0.20 Above high normal <0.10 (IU/mL) Final Unfractionated therapeutic r anges for Anti Xa activity:
For Cardiac/Neurologic treatment: 0.3 to 0.6 IU/mL.
For treatment of DVT or Pulmonary Embolism: 0.3 to 0.7 IU/mL. Performing Location LABORATORY [facility] [place] [facility] [address] [facility] [address]
--- OUTSIDE RECORDS SUMMARY | 2024-01-19 07:58 | External Medical Summary ---
Author Name Unknown Address Unknown Organization K01:[facility] [address] [place] [address] Laboratory Report Ordering Provider Test Date Status YA DEMARCO 01/10/2024 04:46:00 Final Observation Date Value Abnormality Reference (Units ) Status Magnesium 01/10/2024 04:46:00 1.8 1.5-2.6 (m g/dL) Final Performing Location [facility] [address] [place] [address]
--- OUTSIDE RECORDS SUMMARY | 2024-01-19 07:58 | External Medical Summary ---
Author Name Unknown Address Unknown Organization [id number]:LAB[facility]ATORY [facility] [place] - [facility] [address] [place] [address] Laboratory Report Ordering Provider Test Date Status YA DEMARCO 01/11/2024 04:42:00 Final Observation Date Value Abnormality Reference (Units ) Status BUN 01/11/2024 04:42:00 18 6-20 (mg/dL) Final Creatinine 01/11/2024 04:42:00 0.8 0.6-1.2 (mg/dL) Final Glomerular filtration rate/1.73 sq M.predicted [Volume Rate/Area] in Serum, Plasma or Blood by Creatinine-based formula (CKD-EPI) 01/11/2024 04:42:00 88 >=60 (mL/min) Final eGFR is calculated based on the CKD-EPI 2020 equation. Sodium 01/11/2024 04:42:00 134 Below low normal 135 -146 (mmol/L) Final Potassium 01/11/2024 04:42:00 4.1 3.5-5.1 (m mol/L) Final Cl 01/11/2024 04:42:00 101 98-107 (mm ol/L) Final CO2 01/11/2024 04:42:00 20 Below low normal 22- 32 (mmol/L) Final Anion gap 01/11/2024 04:42:00 13 7-15 (mmol /L) Final Glucose 01/11/2024 04:42:00 146 Above high normal 70 -120 (mg/dL) Final Calcium 01/11/2024 04:42:00 8.4 8.4-10.2 ( mg/dL) Final Performing Location LABORATORY [facility] - [facility] [address] [place] [address]
--- OUTSIDE RECORDS SUMMARY | 2024-01-19 07:58 | External Medical Summary ---
Author Name Unknown Address Unknown Organization K01:[facility] [address] [place] [address] Laboratory Report Ordering Provider Test Date Status YA DEMARCO 01/08/2024 22:44:05 Final Observation Date Value Abnormality Reference (Units ) Status Magnesium 01/08/2024 22:44:05 2.0 1.5-2.6 (m g/dL) Final Performing Location [facility] [address] [place] [address]
--- OUTSIDE RECORDS SUMMARY | 2024-01-19 07:58 | External Medical Summary ---
Author Name Unknown Address Unknown Organization : Laboratory Report Ordering Provider Test Date Status ANGELA GARCIA 01/10/2024 07:56:11 Final Observation Date Value Abnormality Reference (Units ) Status Glucose Point of Care 01/10/2024 07:56:11 119 70-120 (mg/dL) Final Performing Location
--- OUTSIDE RECORDS SUMMARY | 2024-01-19 07:58 | External Medical Summary ---
Author Name Unknown Address Unknown Organization K01:[facility] - [address] [place] [address] Laboratory Report Ordering Provider Test Date Status YA DEMARCO 01/09/2024 04:36:45 Final Observation Date Value Abnormality Reference (Units ) Status Phosphate 01/09/2024 04:36:45 3.8 2.5-4.8 (m g/dL) Final Performing Location [facility] [place] [address] [place] [address]
--- OUTSIDE RECORDS SUMMARY | 2024-01-19 07:58 | External Medical Summary ---
Author Name Unknown Address Unknown Organization K01:[facility]ORY [facility] [place] - [facility] [address] [facility] [address] [facility] [address] Laboratory Report Ordering Provider Test Date Status YA DEMARCO 01/08/2024 22:44:05 Final Observation Date Value Abnormality Reference (Units ) Status WBC, Total 01/08/2024 22:44:05 9.23 4.00-10.80 (K/uL) Final RBC 01/08/2024 22:44:05 4.48 4.50-5.25 (M/uL) Final Hemoglobin 01/08/2024 22:44:05 12.7 Below low normal 14.0-16.8 (g/dL) Final HCT 01/08/2024 22:44:05 39.1 Below low normal 40.0-48.4 (%) Final MCV 01/08/2024 22:44:05 87.3 82.0-99.5 (fL) Final MCH 01/08/2024 22:44:05 28.3 27.0-34.0 (pg) Final MCHC 01/08/2024 22:44:05 32.5 32.0-36.0 (g/dL) Final RDW 01/08/2024 22:44:05 14.0 11.5-15.5 (%) Final Platelets 01/08/2024 22:44:05 142 140-400 (K/uL) Final MPV 01/08/2024 22:44:05 9.4 6.6-11.1 (fL) Final Nucleated erythrocytes/100 leukocytes [Ratio] in Blood by Automated count 01/08/2024 22:44:05 0 <=0 (/100 WBCs) Final Performing Location [facility]ORY [facility] [place] - [facility] [place] [address]
--- OUTSIDE RECORDS SUMMARY | 2024-01-19 07:58 | External Medical Summary ---
Author Name Unknown Address Unknown Organization K01:[facility] - [address] [place] [address] Laboratory Report Ordering Provider Test Date Status YA DEMARCO 01/09/2024 04:36:45 Final Observation Date Value Abnormality Reference (Units ) Status Magnesium 01/09/2024 04:36:45 2.0 1.5-2.6 (m g/dL) Final Performing Location [facility] - [address] [place] [address]
--- OUTSIDE RECORDS SUMMARY | 2024-01-19 07:58 | External Medical Summary ---
Author Name Unknown Address Unknown Organization K01:[facility] - [address] [place] [address] Laboratory Report Ordering Provider Test Date Status YA DEMARCO 01/08/2024 22:44:05 Final Observation Date Value Abnormality Reference (Units ) Status Phosphate 01/08/2024 22:44:05 4.0 2.5-4.8 (m g/dL) Final Performing Location [facility] [address] [place] [id number]
--- OUTSIDE RECORDS SUMMARY | 2024-01-19 07:58 | External Medical Summary ---
Author Name Unknown Address Unknown Organization K01:[facility] [place] [facility] [place] [address] [place] [address] Laboratory Report Ordering Provider Test Date Status YA DEMARCO 01/09/2024 04:36:45 Final Observation Date Value Abnormality Reference (Units ) Status BUN 01/09/2024 04:36:45 13 6-20 (mg/dL) Final Creatinine 01/09/2024 04:36:45 0.7 0.6-1.2 (mg/dL) Final Glomerular filtration rate/1.73 sq M.predicted [Volume Rate/Area] in Serum, Plasma or Blood by Creatinine-based formula (CKD-EPI) 01/09/2024 04:36:45 >90 >=60 (mL/min) Final eGFR is calculated based on the CKD-EPI 2020 equation. Sodium 01/09/2024 04:36:45 143 135-146 (m mol/L) Final Potassium 01/09/2024 04:36:45 3.9 3.5-5.1 (m mol/L) Final Cl 01/09/2024 04:36:45 106 98-107 (mm ol/L) Final CO2 01/09/2024 04:36:45 20 Below low normal 22- 32 (mmol/L) Final Anion gap 01/09/2024 04:36:45 17 Above high normal 7- 15 (mmol/L) Final Glucose 01/09/2024 04:36:45 116 70-120 (mg /dL) Final Calcium 01/09/2024 04:36:45 8.5 8.4-10.2 ( mg/dL) Final Performing Location [facility] [place] [facility] [address] [place] [address]
--- OUTSIDE RECORDS SUMMARY | 2024-01-19 07:58 | External Medical Summary ---
Author Name Unknown Address Unknown Organization K01:LABORATORY [facility] - [address] [place] [address] Laboratory Report Ordering Provider Test Date Status LUCY ALBERTOLEY 01/10/2024 19:57:00 Final Observation Date Value Abnormality Reference (Units ) Status Lactic Acid 01/10/2024 19:57:00 1.3 0.4-2.0 (mmol/L) Final Performing Location [facility]ORY [facility] - [address] [place] [address]
--- OUTSIDE RECORDS SUMMARY | 2024-01-19 07:58 | External Medical Summary ---
Author Name Unknown Address Unknown Organization K01:LABORATORY [facility] [place] - [facility] [place] [address] Laboratory Report Ordering Provider Test Date Status SAMMI ALBERTO 01/10/2024 19:57:00 Final Observation Date Value Abnormality Reference (Units ) Status WBC, Total 01/10/2024 19:57:00 10.00 4.00-10.80 (K/uL) Final RBC 01/10/2024 19:57:00 3.78 4.50-5.25 (M/uL) Final Hemoglobin 01/10/2024 19:57:00 10.4 Below low normal 14.0-16.8 (g/dL) Final HCT 01/10/2024 19:57:00 33.3 Below low normal 40.0-48.4 (%) Final MCV 01/10/2024 19:57:00 88.1 82.0-99.5 (fL) Final MCH 01/10/2024 19:57:00 27.5 27.0-34.0 (pg) Final MCHC 01/10/2024 19:57:00 31.2 32.0-36.0 (g/dL) Final RDW 01/10/2024 19:57:00 14.1 11.5-15.5 (%) Final Platelets 01/10/2024 19:57:00 175 140-400 (K/uL) Final MPV 01/10/2024 19:57:00 9.9 6.6-11.1 (fL) Final Nucleated erythrocytes/100 leukocytes [Ratio] in Blood by Automated count 01/10/2024 19:57:00 0 <=0 (/100 WBCs) Final Performing Location LABORATORY [facility] [place] - [address] [place] [address]
--- OUTSIDE RECORDS SUMMARY | 2024-01-19 07:58 | External Medical Summary ---
Author Name Unknown Address Unknown Organization K01:LABORATORY [facility] [place] - [facility] [address] [place] [address] Laboratory Report Ordering Provider Test Date Status YA DEMARCO 01/10/2024 04:46:00 Final Observation Date Value Abnormality Reference (Units ) Status BUN 01/10/2024 04:46:00 18 6-20 (mg/dL) Final Creatinine 01/10/2024 04:46:00 0.8 0.6-1.2 (mg/dL) Final Glomerular filtration rate/1.73 sq M.predicted [Volume Rate/Area] in Serum, Plasma or Blood by Creatinine-based formula (CKD-EPI) 01/10/2024 04:46:00 86 >=60 (mL/min) Final eGFR is calculated based on the CKD-EPI 2020 equation. Sodium 01/10/2024 04:46:00 134 Below low normal 135 -146 (mmol/L) Final Potassium 01/10/2024 04:46:00 4.1 3.5-5.1 (m mol/L) Final Cl 01/10/2024 04:46:00 101 98-107 (mm ol/L) Final CO2 01/10/2024 04:46:00 21 Below low normal 22- 32 (mmol/L) Final Anion gap 01/10/2024 04:46:00 12 7-15 (mmol /L) Final Glucose 01/10/2024 04:46:00 139 Above high normal 70 -120 (mg/dL) Final Calcium 01/10/2024 04:46:00 8.8 8.4-10.2 ( mg/dL) Final Performing Location LABORATORY [facility] - [facility] [address] [place] [address]
--- OUTSIDE RECORDS SUMMARY | 2024-01-19 07:58 | External Medical Summary | Summary of Care ---
Author Name Unknown Organization [facility] Address [address] [place] [address] Phone [phone] Care Team Providers Care Promotion Manager Name Role Phone Elvis Flores MD Primary Care Provider Encounter Details Date Type Department Care Team (Late st Contact Info) Description 01/08/2024 CardioDiagnostic Study General Internal Medicine, [facility] [address], [place] [phone] Geo Barroso MD [address], [place] [phone] EKG Report Allergies No known active allergiesdocumented as of this encounter (statuses as of 01/10/2024) Medications ONE TOUCH ULTRA BONUS PACK KITIndications [...] as of this encounter (statuses as of 01/10/2024) Active Problems Problem Noted Date Diagnosed Date Hematuria, gross 01/10/2024 Coronary artery disease invo lving [place] coronary artery of [place] heart 01/10/2024 Encounter for dental examination 01/10/2024 [...] as of this encounter (statuses as of 01/10/2024) Resolved Problems Problem Noted Date Diagnosed Date [...] as of this encounter (statuses as of 01/10/2024) Immunizations Name Administration Dates Next Due COVID-19 [...] on file documented as of this encounter Procedure Notes * Owen Alejandro MD - 01/08/2024 10:13 PM ESTAssociated Order(s): EKG REPORT REASON FOR STUDY: CONCLUSIONS: Sinus rhythm with 1st degree AV block Left axis deviation Left bundle branch block Abnormal ECG When compared with ECG of 20-Dec-2023 09:11, Premature ventricular complexes are no longer Present T wave inversion no longer evident in Inferior leads QT has lengthened Ventricular Rate: 71 Atrial Rate: 71 SC Interval: 220 QRS Duration: 176 QT/QTc: 510/554 ms P-R-T [place]: 36 : -53 : 117 degrees documented in this encounter Plan of Treatment Upcoming Encounters Date Type Department Care Team (Late st Contact Info) Description 03/06/2024 9:40 AM EST Office Visit [facility] [address] [phone] Elvis Flores MD [address] [address] 11/11/2024 9:30 AM EDT Cardiac Studies Cardiac Studies, [facility] [address] [place] [address] Scheduled Procedures Name Priority Associated Diagnoses Date/Ti me CORONARY ANGIOGRAPHY W/LEFT HEART CATH Ventricular fibrillation (HCC) 01/10/2024 9:15 AM EST Health Maintenance Due Date Last Done Comments Adult Wellness Visit 08/03/2022 08/03/2021 COVID-19 Vaccine ( season) 2023 01/20/2022, 12/15/2020, 05/19/2020, Additional history exists Depression Screening 09/03/2024 09/04/2023 B-12 09/04/2024 09/05/2023, 07/13, 09/14/2021, Additional history exists GFR 01/09/2025 01/10/2024, 12/13, 01/08/2024, Additional history exists Albumin/Creatinine Ratio 09/04/2026 024, [...] Procedure Name Priority Date/Time Associated Diagnosis Comments EKG REPORT 01/08/2024 10:13 PM EST documented in this encounter Results * EKG REPORT (01/08/2024 10:13 PM EST) 01/08/2024 10:1 3 PM EST Narrative Procedure Note Owen Alejandro MD - 01/08/2024 10:13 PM EST REASON FOR STUDY: CONCLUSIONS: Sinus rhythm with 1st degree AV block Left axis deviation Left bundle branch block Abnormal ECG When compared with ECG of 20-Dec-2023 09:11, Premature ventricular complexes are no longer Present T wave inversion no longer evident in Inferior leads QT has lengthened Ventricular Rate: 71 Atrial Rate: 71 SC Interval: 220 QRS Duration: 176 QT/QTc: 510/554 ms P-R-T [place]: 36 : -53 : 117 degrees Geo Barroso MD EKG Final Result documented in this encounter Advance Directives * Full Code (Latest Code Status on File) Date Activated Date Inactivated Comments 01/08/2024 10:30 PM This order r eflects the patients wishes and were consensually agreed upon. Question Answer Comments Discussion of Advance Directives occurred with: Patient Care Teams Promotion Manager Relationship Specialty Start Date End Date Elvis Flores MD [address] [place] [address] PCP - General 06/09/1998 documented as of this encounter
--- OUTSIDE RECORDS SUMMARY | 2024-01-19 07:58 | External Medical Summary ---
Author Name Unknown Address Unknown Organization : Laboratory Report Ordering Provider Test Date Status ANGELA GARCIA 01/10/2024 22:27:46 Final Observation Date Value Abnormality Reference (Units ) Status Glucose Point of Care 01/10/2024 22:27:46 201 Above high normal 70-120 (mg/dL) Final Performing Location
--- OUTSIDE RECORDS SUMMARY | 2024-01-19 07:58 | External Medical Summary ---
Author Name Unknown Address Unknown Organization : Laboratory Report Ordering Provider Test Date Status ANGELA GARCIA 01/10/2024 15:52:43 Final Observation Date Value Abnormality Reference (Units ) Status Glucose Point of Care 01/10/2024 15:52:43 172 Above high normal 70-120 (mg/dL) Final Performing Location
--- OUTSIDE RECORDS SUMMARY | 2024-01-19 07:58 | External Medical Summary ---
Author Name Unknown Address Unknown Organization K01:[facility] [place] [address] [place] [address] Laboratory Report Ordering Provider Test Date Status YA DEMARCO 01/08/2024 22:44:05 Final Warfarin Therapy
INR: 2 .0-3.0 conventional anticoagulation
INR: 2.5- 3.5 high intensity anticoagulation Observation Date Value Abnormality Reference (Units ) Status PT 01/08/2024 22:44:05 14.1 11.6-15.2 (seconds) Final INR 01/08/2024 22:44:05 1.1 0.8-1.2 Final Performing Location [facility] [place] [address] [place] [address]
--- OUTSIDE RECORDS SUMMARY | 2024-01-19 07:58 | External Medical Summary ---
Author Name Unknown Address Unknown Organization K01:LABORATORY [facility] [place] - [facility] [address] [facility] [address] [facility] [address] Laboratory Report Ordering Provider Test Date Status YA DEMARCO 01/09/2024 04:36:45 Final Get Heparin, unfractionated (Xa) level 6 hours after start of infusion and 6 hours after each dose adjustment Observation Date Value Abnormality Reference (Units ) Status Heparin, unfractionated level 01/09/2024 04:36:45 0.19 Above high normal <0.10 (IU/mL) Final Unfractionated therapeutic r anges for Anti Xa activity:
For Cardiac/Neurologic treatment: 0.3 to 0.6 IU/mL.
For treatment of DVT or Pulmonary Embolism: 0.3 to 0.7 IU/mL. Performing Location LABORATORY [facility] [place] - [address] [place] [address] [place]. [facility] [address]
--- OUTSIDE RECORDS SUMMARY | 2024-01-19 07:58 | External Medical Summary ---
Author Name Unknown Address Unknown Organization K01:LABORATORY [facility] [place] - [address] [facility] [address] Laboratory Report Ordering Provider Test Date Status YA DEMARCO 01/09/2024 04:36:45 Final Observation Date Value Abnormality Reference (Units ) Status TSH 01/09/2024 04:36:45 0.93 0.27-4.20 (uIU/mL) Final Performing Location LABORATORY [facility] - [address] [facility] [address]
--- OUTSIDE RECORDS SUMMARY | 2024-01-19 07:58 | External Medical Summary ---
Author Name Unknown Address Unknown Organization K01:LABORATORY [facility] [place] - [facility] [address] [address] [facility] [address] [facility] [address] Laboratory Report Ordering Provider Test Date Status YA DEMARCO 01/09/2024 04:36:45 Final Observation Date Value Abnormality Reference (Units ) Status WBC, Total 01/09/2024 04:36:45 8.08 4.00-10.80 (K/uL) Final RBC 01/09/2024 04:36:45 4.38 4.50-5.25 (M/uL) Final Hemoglobin 01/09/2024 04:36:45 12.1 Below low normal 14.0-16.8 (g/dL) Final HCT 01/09/2024 04:36:45 37.9 Below low normal 40.0-48.4 (%) Final MCV 01/09/2024 04:36:45 86.5 82.0-99.5 (fL) Final MCH 01/09/2024 04:36:45 27.6 27.0-34.0 (pg) Final MCHC 01/09/2024 04:36:45 31.9 32.0-36.0 (g/dL) Final RDW 01/09/2024 04:36:45 13.9 11.5-15.5 (%) Final Platelets 01/09/2024 04:36:45 142 140-400 (K/uL) Final MPV 01/09/2024 04:36:45 9.9 6.6-11.1 (fL) Final Nucleated erythrocytes/100 leukocytes [Ratio] in Blood by Automated count 01/09/2024 04:36:45 0 <=0 (/100 WBCs) Final Performing Location LABORATORY [facility] [place] - [facility] [place] [address]
--- OUTSIDE RECORDS SUMMARY | 2024-01-19 07:58 | External Medical Summary ---
Author Name Unknown Address Unknown Organization : Laboratory Report Ordering Provider Test Date Status ANGELA GARCIA 01/09/2024 22:47:42 Final Observation Date Value Abnormality Reference (Units ) Status Glucose Point of Care 01/09/2024 22:47:42 144 Above high normal 70-120 (mg/dL) Final Performing Location
--- OUTSIDE RECORDS SUMMARY | 2024-01-19 07:58 | External Medical Summary ---
Author Name Unknown Address Unknown Organization K01:[facility] [place] [address] [place] [address] Laboratory Report Ordering Provider Test Date Status JENYVONNEMELQUIADES 01/08/2024 22:44:05 Final Observation Date Value Abnormality Reference (Units ) Status Troponin T 01/08/2024 22:44:05 59 Above high normal < =22 (ng/L) Final Performing Location [facility] - [address] [place] [address]
--- OUTSIDE RECORDS SUMMARY | 2024-01-19 07:58 | External Medical Summary ---
Author Name Unknown Address Unknown Organization K01:[facility] [place] [address] [place] [address] Laboratory Report Ordering Provider Test Date Status REG LI 01/09/2024 00:47:59 Final Observation Date Value Abnormality Reference (Units ) Status Lactic Acid 01/09/2024 00:47:59 0.7 0.4-2.0 (mmol/L) Final Performing Location [facility] [place] [address] [place] [address]
--- OUTSIDE RECORDS SUMMARY | 2024-01-19 07:58 | External Medical Summary | Summary of Care ---
Author Name Unknown Organization [facility] Address [address] [place] [address] Phone [phone] Care Team Providers Care Wet Process Assistant Head [place] Name Role Phone Elvis Flores MD Primary Care Provider [phone] Reason for Visit * Reason Comments Retrieval [facility] ICU to [facility] 771 Encounter Details Date Type Department Care Team (Late st Contact Info) Description 01/08/2024 8:00 PM EST Documentation [facility] [place] [address] [place] [address] 4, [facility] [address] [place], [place] [phone] Cardiac arrest (HCC)* Allergies No known active allergiesdocumented as of this encounter (statuses as of 01/09/2024) Medications ONE TOUCH ULTRA BONUS PACK KITIndications [...] as of this encounter (statuses as of 01/09/2024) Active Problems Problem Noted Date Diagnosed Date History of cardiac arrest 01/09/2024 NSTEMI (non-ST [...] as of this encounter (statuses as of 01/09/2024) Resolved Problems Problem Noted Date Diagnosed Date [...] as of this encounter (statuses as of 01/09/2024) Immunizations Name Administration Dates Next Due COVID-19 [...] on file documented as of this encounter Progress Notes * Devonte Ibanez Sr., RN - 01/09/2024 2:36 AM EST MEDICARE AMBULANCE INFORMATION SHEET Patient Admitted as an Inpatient: yes Certifying Physician/Ordering Service:[facility] Phys[facility] - Maykel Brown M.D. [facility] [address] [facility] [place] [address] Point of Work Order Detailer (zip code required): Hospital - [facility] [place] - [address]; [place] [address] Destination (Specify Name/Address): [facility] - [address] [place] [address] E; [place] [address] Patient transported to nearest facility (capable of mgmt for Pt's condition): YES Total number of Loaded Miles: 65.5 miles Mode of Transport: Air Completed by: Devonte Ibanez RN documented in this encounter Plan of Treatment Upcoming Encounters Date Type Department Care Team (Late st Contact Info) Description 03/06/2024 9:40 AM EST Office Visit [address] [place] [address] Elvis Flores MD [address] [place] [address] 11/11/2024 9:30 AM EDT Cardiac Studies Cardiac Studies, [facility] [address] [place] [address] Health Maintenance Due Date Last Done Comments Adult Wellness Visit 08/03/2022 08/03/2021 COVID-19 Vaccine ( season) 2023 01/20/2022, 12/15/2020, 05/19/2020, Additional history exists Depression Screening 09/03/2024 09/04/2023 B-12 09/04/2024 09/05/2023, 07/13, 09/14/2021, Additional history exists GFR 01/07/2025 01/08/2024, 12/13, 09/05/2023, Additional history exists Albumin/Creatinine Ratio 09/04/2026 024, [...] as of this encounter Visit Diagnoses Diagnosis Cardiac arrest (HCC)- Primary Cardiac arrest documented in this encounter Advance Directives * Full Code (Latest Code Status on File) Date Activated Date Inactivated Comments 01/08/2024 10:30 PM This order r eflects the patients wishes and were consensually agreed upon. Question Answer Comments Discussion of Advance Directives occurred with: Patient Care Teams Wet Process Assistant Head [place] Relationship Specialty Start Date End Date Elvis Flores MD [address] [place] [address] PCP - General 06/09/1998 documented as of this encounter
--- OUTSIDE RECORDS SUMMARY | 2024-01-19 07:58 | External Medical Summary ---
Author Name Unknown Address Unknown Organization K01:[facility] - [address] [place] [address] Laboratory Report Ordering Provider Test Date Status YA DEMARCO 01/11/2024 04:42:00 Final Observation Date Value Abnormality Reference (Units ) Status Magnesium 01/11/2024 04:42:00 2.1 1.5-2.6 (m g/dL) Final Performing Location [facility] - [address] [place] [address]
--- OUTSIDE RECORDS SUMMARY | 2024-01-19 07:58 | External Medical Summary ---
Author Name Unknown Address Unknown Organization K01:[facility]ORY [facility] [place] [address] [place] [address] Laboratory Report Ordering Provider Test Date Status YA DEMARCO 01/09/2024 04:36:45 Final Observation Date Value Abnormality Reference (Units ) Status Troponin T 01/09/2024 04:36:45 56 Above high normal < =22 (ng/L) Final Performing Location [facility] - [address] [place] [address]
--- OUTSIDE RECORDS SUMMARY | 2024-01-19 07:58 | External Medical Summary ---
Author Name Unknown Address Unknown Organization K01:LABORATORY [facility] [place] - [address] [place] [address] Laboratory Report Ordering Provider Test Date Status YA DEMARCO 01/09/2024 04:36:45 Final Warfarin Therapy
INR: 2 .0-3.0 conventional anticoagulation
INR: 2.5- 3.5 high intensity anticoagulation Observation Date Value Abnormality Reference (Units ) Status PT 01/09/2024 04:36:45 14.2 11.6-15.2 (seconds) Final INR 01/09/2024 04:36:45 1.1 0.8-1.2 Final Performing Location LAB[facility]ATORY [facility] [place] - [address] [address]
--- OUTSIDE RECORDS SUMMARY | 2024-01-19 07:58 | External Medical Summary ---
Author Name Unknown Address Unknown Organization [id number]:LABORATORY [facility] [place] - [facility] [address] [facility] [address] [facility] [address] Laboratory Report Ordering Provider Test Date Status YA DEMARCO 01/09/2024 11:05:09 Final Get Heparin, unfractionated (Xa) level 6 hours after start of infusion and 6 hours after each dose adjustment Observation Date Value Abnormality Reference (Units ) Status Heparin, unfractionated level 01/09/2024 11:05:09 0.41 Above high normal <0.10 (IU/mL) Final Unfractionated therapeutic r anges for Anti Xa activity:
For Cardiac/Neurologic treatment: 0.3 to 0.6 IU/mL.
For treatment of DVT or Pulmonary Embolism: 0.3 to 0.7 IU/mL. Performing Location LABORATORY [facility] [place] - [facility] [address] [facility] [address] [facility] [address]
--- OUTSIDE RECORDS SUMMARY | 2024-01-19 07:58 | External Medical Summary ---
Author Name Unknown Address Unknown Organization K01:[facility]ATORY [facility] - [address] [address] Laboratory Report Ordering Provider Test Date Status YA DEMARCO 01/11/2024 04:42:00 Final Observation Date Value Abnormality Reference (Units ) Status Phosphate 01/11/2024 04:42:00 3.3 2.5-4.8 (m g/dL) Final Performing Location LAB[facility] - [address] [place] [address]
--- OUTSIDE RECORDS SUMMARY | 2024-01-19 07:58 | External Medical Summary ---
Author Name Unknown Address Unknown Organization K01:LABORATORY [place] [address] [address] [facility] [place] [address] Laboratory Report Ordering Provider Test Date Status YA DEMARCO 01/10/2024 04:46:00 Final Observation Date Value Abnormality Reference (Units ) Status WBC, Total 01/10/2024 04:46:00 8.69 4.00-10.80 (K/uL) Final RBC 01/10/2024 04:46:00 4.14 4.50-5.25 (M/uL) Final Hemoglobin 01/10/2024 04:46:00 11.5 Below low normal 14.0-16.8 (g/dL) Final HCT 01/10/2024 04:46:00 35.9 Below low normal 40.0-48.4 (%) Final MCV 01/10/2024 04:46:00 86.7 82.0-99.5 (fL) Final MCH 01/10/2024 04:46:00 27.8 27.0-34.0 (pg) Final MCHC 01/10/2024 04:46:00 32.0 32.0-36.0 (g/dL) Final RDW 01/10/2024 04:46:00 13.8 11.5-15.5 (%) Final Platelets 01/10/2024 04:46:00 142 140-400 (K/uL) Final MPV 01/10/2024 04:46:00 9.7 6.6-11.1 (fL) Final Nucleated erythrocytes/100 leukocytes [Ratio] in Blood by Automated count 01/10/2024 04:46:00 0 <=0 (/100 WBCs) Final Performing Location LABORATORY [facility] [place] - [facility] [place] [address]
--- OUTSIDE RECORDS SUMMARY | 2024-01-19 07:58 | External Medical Summary ---
Author Name Unknown Address Unknown Organization : Laboratory Report Ordering Provider Test Date Status ANGELA GARCIA 01/10/2024 11:56:17 Final Observation Date Value Abnormality Reference (Units ) Status Glucose Point of Care 01/10/2024 11:56:17 128 Above high normal 70-120 (mg/dL) Final Performing Location
--- OUTSIDE RECORDS SUMMARY | 2024-01-19 07:58 | External Medical Summary | Summary of Care ---
Author Name Unknown Organization [facility] Address [address] [place] [address] Phone [phone] Care Team Providers Care Program Host Name Role Phone Elvis Flores MD Primary Care Provider [phone] Reason for Visit * Reason Comments Retrieval [facility] ICU to [facility] 771 * Auth/Cert Specialty Diagnoses / Procedures Referred By Contac t Referred To Contact [facility] [address] [place] [address] Referral ID Status Reason Start Date Expiration Date Visits Re quested Visits Authorized [id number] Encounter Details Date Type Department Care Team (Late st Contact Info) Description 01/08/2024 8:00 PM EST Documentation [facility] [address] [place] [address] 4, [facility] [address] [place] [address] Cardiac arrest (HCC)* Allergies No known active [...] Admitted as an Inpatient: yes Certifying Physician/Ordering Service:[facility] [place] ED Physician - Maykel Brown M.D. [facility] [address] [place] [address] [place] Ripsaw Operator (zip code required): Hospital - [facility] - [address]; [place] [address] Destination (Specify Name/Address): [facility] - [address]; [place] [address] Patient transported to nearest facility (capable of mgmt for Pt's condition): YES Total number of Loaded Miles: 65.5 miles Mode of Transport: Air Completed by: Devonte Ibanez RN documented in this encounter Plan of Treatment Upcoming Encounters Date Type Department Care Team (Late st Contact Info) Description 03/06/2024 9:40 AM EST Office Visit Family Practice, [facility] [address] [phone] Elvis Flores MD [address] [facility] [address] [place] [id number] 11/11/2024 9:30 AM EDT Cardiac Studies Cardiac Studies, [facility] [address] [facility] [address] [place] [address] Scheduled Procedures Name Priority Associated Diagnoses Date/Ti [...] Advance Directives occurred with: Patient Care Teams Program Host Relationship Specialty Start Date End Date Elvis Flores MD [address] [place] [address] PCP - General 06/09/1998 documented as of this encounter
--- OUTSIDE RECORDS SUMMARY | 2024-01-19 07:58 | External Medical Summary ---
Author Name Unknown Address Unknown Organization K01:[facility]ATORY [facility] - [address] [address] Laboratory Report Ordering Provider Test Date Status YA DEMARCO 01/10/2024 04:46:00 Final Observation Date Value Abnormality Reference (Units ) Status Phosphate 01/10/2024 04:46:00 3.2 2.5-4.8 (m g/dL) Final Performing Location LAB[facility] - [address] [place] [address]
--- OUTSIDE RECORDS SUMMARY | 2024-01-19 07:58 | External Medical Summary ---
Author Name Unknown Address Unknown Organization K01:LAB[facility]ORY [facility] [place] - [address] [facility] [address] Laboratory Report Ordering Provider Test Date Status YA DEMARCO 01/08/2024 22:44:05 Final Observation Date Value Abnormality Reference (Units ) Status Triglyceride 01/08/2024 22:44:05 102 <=174 ( mg/dL) Final Triglyceride Reference Range s (mg/dL):
<150 Acceptable
150-174 Borderline high
175-499 High
>=500 Very high Cholesterol 01/08/2024 22:44:05 107 <200 (mg /dL) Final Total Cholesterol Reference Ranges (mg/dL):
<200 Desirable
200-239 Borderline high
>=240 High HDL 01/08/2024 22:44:05 41 >39 (mg/dL ) Final HDL Cholesterol Reference Ra nges (mg/dL):
>=60 High (Desirable)
<50 Low (Undesirable) For Females
<40 Low (Undesirable) For Males NON-HDL CHOLESTEROL 01/08/2024 22:44:05 66 <=159 (mg/dL) Final Non-HDL Cholesterol Referenc e Range (mg/dL):
<100 Target level for high risk ASCVD patient
<130 Optimal for general population
130-159 Near optimal for general population
160-189 Borderline High
190-219 High
>=220 Very High LDL, (calculated) 01/08/2024 22:44:05 46 <= 129 (mg/dL) Final LDL Cholesterol Reference Ra nges (mg/dL):
<70 Target level for high risk ASCVD patient
<100 Optimal for general population
100-129 Near optimal for general population
130-159 Borderline high
160-189 High
>=190 Very high Performing Location LABORATORY [facility] [place] - [address] [place] [address]
--- OUTSIDE RECORDS SUMMARY | 2024-01-19 07:58 | External Medical Summary ---
Author Name Unknown Address Unknown Organization K01:[facility]ORY [facility] [place] - [address] [address] Laboratory Report Ordering Provider Test Date Status YA DEMARCO 01/10/2024 04:46:00 Final Warfarin Therapy
INR: 2 .0-3.0 conventional anticoagulation
INR: 2.5- 3.5 high intensity anticoagulation Observation Date Value Abnormality Reference (Units ) Status PT 01/10/2024 04:46:00 13.6 11.6-15.2 (seconds) Final INR 01/10/2024 04:46:00 1.0 0.8-1.2 Final Performing Location LABORATORY [facility] [place] - [address] [address]
--- OUTSIDE RECORDS SUMMARY | 2024-01-19 07:58 | External Medical Summary ---
Author Name Unknown Address Unknown Organization : Laboratory Report Ordering Provider Test Date Status SKY CONNOR 01/09/2024 16:37:01 Final Observation Date Value Abnormality Reference (Units ) Status Glucose Point of Care 01/09/2024 16:37:01 158 Above high normal 70-120 (mg/dL) Final Performing Location
--- OUTSIDE RECORDS SUMMARY | 2024-01-19 07:58 | External Medical Summary ---
Author Name Unknown Address Unknown Organization K01:LABORATORY [place] [address] [facility] [address] [facility] [address] Laboratory Report Ordering Provider Test Date Status YA DEMARCO 01/09/2024 19:17:00 Final Get Heparin, unfractionated (Xa) level 6 hours after start of infusion and 6 hours after each dose adjustment Observation Date Value Abnormality Reference (Units ) Status Heparin, unfractionated level 01/09/2024 19:17:00 0.31 Above high normal <0.10 (IU/mL) Final Unfractionated therapeutic r anges for Anti Xa activity:
For Cardiac/Neurologic treatment: 0.3 to 0.6 IU/mL.
For treatment of DVT or Pulmonary Embolism: 0.3 to 0.7 IU/mL. Performing Location LABORATORY [facility] [place] - [address] [place] [address] [address] [facility] [address]
--- OUTSIDE RECORDS SUMMARY | 2024-01-19 07:58 | External Medical Summary ---
Author Name Unknown Address Unknown Organization K01:LABORATORY [place] [address] [facility] [address] [facility] [address] Laboratory Report Ordering Provider Test Date Status YA DEMARCO 01/10/2024 04:46:00 Final Get Heparin, unfractionated (Xa) level 6 hours after start of infusion and 6 hours after each dose adjustment Observation Date Value Abnormality Reference (Units ) Status Heparin, unfractionated level 01/10/2024 04:46:00 0.34 Above high normal <0.10 (IU/mL) Final Unfractionated therapeutic r anges for Anti Xa activity:
For Cardiac/Neurologic treatment: 0.3 to 0.6 IU/mL.
For treatment of DVT or Pulmonary Embolism: 0.3 to 0.7 IU/mL. Performing Location [facility] [place] [address] [place] [address] [place] [facility] [address]
--- OUTSIDE RECORDS SUMMARY | 2024-01-19 07:58 | External Medical Summary ---
Author Name Unknown Address Unknown Organization : Laboratory Report Ordering Provider Test Date Status SKY CONNOR 01/09/2024 11:09:04 Final Observation Date Value Abnormality Reference (Units ) Status Glucose Point of Care 01/09/2024 11:09:04 145 Above high normal 70-120 (mg/dL) Final Performing Location
--- OUTSIDE RECORDS SUMMARY | 2024-01-19 07:58 | External Medical Summary ---
Author Name Unknown Address Unknown Organization K01:LABORATORY [place] [address] [facility] [address] [facility] [address] Laboratory Report Ordering Provider Test Date Status YA DEMARCO 01/11/2024 04:42:00 Final Get Heparin, unfractionated (Xa) level 6 hours after start of infusion and 6 hours after each dose adjustment Observation Date Value Abnormality Reference (Units ) Status Heparin, unfractionated level 01/11/2024 04:42:00 0.36 Above high normal <0.10 (IU/mL) Final Unfractionated therapeutic r anges for Anti Xa activity:
For Cardiac/Neurologic treatment: 0.3 to 0.6 IU/mL.
For treatment of DVT or Pulmonary Embolism: 0.3 to 0.7 IU/mL. Performing Location [facility] [place] [address] [place] [address] [place]. [facility] [address]
--- OUTSIDE RECORDS SUMMARY | 2024-01-19 07:58 | External Medical Summary ---
Author Name Unknown Address Unknown Organization K01:LABORATORY [place] [address] [facility] [facility] [address] [facility] [address] Laboratory Report Ordering Provider Test Date Status YA DEMARCO 01/10/2024 18:16:00 Final Get Heparin, unfractionated (Xa) level 6 hours after start of infusion and 6 hours after each dose adjustment Observation Date Value Abnormality Reference (Units ) Status Heparin, unfractionated level 01/10/2024 18:16:00 0.47 Above high normal <0.10 (IU/mL) Final Unfractionated therapeutic r anges for Anti Xa activity:
For Cardiac/Neurologic treatment: 0.3 to 0.6 IU/mL.
For treatment of DVT or Pulmonary Embolism: 0.3 to 0.7 IU/mL. Performing Location LAB[facility] [place] [address] [place] [address] [place] [facility] [address]
--- OUTSIDE RECORDS SUMMARY | 2024-01-19 07:58 | External Medical Summary ---
Author Name Unknown Address Unknown Organization K01:[facility] [place] [facility] [place] [address] [facility] [address] [facility] [address] Laboratory Report Ordering Provider Test Date Status YA DEMARCO 01/08/2024 22:44:05 Final Observation Date Value Abnormality Reference (Units ) Status HbA1C 01/08/2024 22:44:05 7.1 Above high normal 4. 0-5.6 (%) Final The use of HbA1c to monitor glycemic status is based on normal hemoglobin and HbA composition. This test should not be used in patients with abnormal hemoglobin that affects the half life of the red blood cell or the in vivo glycation rates. Glucose, estimated average 01/08/2024 22:44:05 157 Above high normal <126 (mg/dL) Tonny rodriguez Performing Location [facility] [place] [address] [facility] [address]
--- OUTSIDE RECORDS SUMMARY | 2024-01-19 07:59 | External Medical Summary | Summary of Care ---
Author Name Unknown Organization [facility] Address [address] [place] [address] Phone [phone] Care Team Providers Care Curb Hop Name Role Phone Elvis Flores MD Primary Care Provider [phone] Encounter Details Date Type Department Care Team (Late st Contact Info) Description 01/08/2024 Orders Only [facility] [address] [place] [address] Elvis Flores MD [address] [place] [address] Allergies No known active allergiesdocumented as of this encounter (statuses as of 01/08/2024) Medications ONE TOUCH ULTRA BONUS PACK KITIndications: [...] as directed 100 Strip 3 4 Active Vitamin C 125 MG Oral [...] ONCE DAILY 90 Tablet 1 4 Active Lisinopril-hydr oCHLOROthiazide 10-12.5 MG Oral TabletIndicatio ns:HTN, goal below 140/90 TAKE 1/2 TABLET BY MOUTH EVERY DAY 45 Tablet 2 4 Active documented as of this encounter (statuses as of 01/08/2024) Active Problems Problem Noted Date Diagnosed Date Aortic valve stenosis 10/08/2022 Aortic valve sclerosis 04/29/2017 HTN, goal below 140/90 04/18/2015 Overview: Per HTN Protocol #27. Right thyroid nodule 01/29/2011 Vitamin D deficiency 09/24/2010 DYSLIPIDEMIA, GOAL LDL BELOW 100 01/27/2009 Overview (01/27/2009): Per Lipid Taxonomy. History of tobacco use 06/15/2008 Overview (11/19/2018): cigars E.D. 05/03/2008 documented as of this encounter (statuses as of 01/08/2024) Resolved Problems Problem Noted Date Diagnosed Date [...] as of this encounter (statuses as of 01/08/2024) Immunizations Name Administration Dates Next Due COVID-19 [...] 03/06/2024 9:40 AM EST [facility] [address] [phone] Elvis Flores MD [address] [address] 11/11/2024 9:30 AM EDT Cardiac Studies Cardiac Studies, [facility] [address] [place] [address] Health Maintenance Due Date Last Done Comments Adult Wellness Visit 08/03/2022 08/03/2021 COVID-19 Vaccine ( season) 2023 12/15/2020, 05/19/2020, 04/28/2020, Additional history exists Depression Screening 09/03/2024 09/04/2023 B-12 09/04/2024 09/05/2023, 07/13, 09/14/2021, Additional history exists GFR 01/06/2025 01/07/2024, 08/12, 08/06/2022, Additional history exists Albumin/Creatinine Ratio 09/04/2026 024, [...] Procedure Name Priority Date/Time Associated Diagnosis Comments CHEMISTRY-OUTSIDE Routine 01/07/2024 documented in this encounter Results * (ABNORMAL) CHEMISTRY-OUTSIDE (01/07/2024) Not all results display below - see scan for full detail OUTSIDE LAB (SEE SCANNED REPORT) Comment:SCAN INCL: ED LABS I STAT 8 PANEL CREATININE 1.0 0.6 - 1.3 MG/DL OUTSIDE LAB (SEE SCANNED REPORT) EGFR OUTSIDE LA B (SEE SCANNED REPORT) POTASSIUM 3.6 3.3. - 5.0 MMOL/L OUTSIDE LAB (SEE SCANNED REPORT) GLUCOSE 197(A) 70 - 99 MG/DL OUTSIDE LAB (SEE SCANNED REPORT) HOURS FASTING OUTSID E LAB (SEE SCANNED REPORT) TRIGLYCERIDES-OUT SIDE LAB OUTSIDE LAB (SEE SCANNED REPORT) CHOLESTEROL-OUTSI DE LAB OUTSIDE LAB (SEE SCANNED REPORT) HDL-OUTSIDE LAB OUTS AMBAR LAB (SEE SCANNED REPORT) CHOL/HDL RATIO-OUTSIDE LAB OUTSIDE LA B (SEE SCANNED REPORT) LDL (CALCULATED)-OUTS AMBAR LAB OUTSIDE LAB (SEE SCANNED REPORT) LDL (DIRECT MEASURE)-OUTSIDE LAB OUTSIDE LAB (SEE SCANNED REPORT) HEMOGLOBIN, V0G-ILPVFOX LAB OUTSIDE LAB (SEE SCANNED REPORT) PHOSPHORUS-OUTSID E LAB OUTSIDE LAB (SEE SCANNED REPORT) PTH-OUTSIDE LAB OUTS [facility] LAB (SEE SCANNED REPORT) MICROALBUMIN RATIO-OUTSIDE LAB OUTSIDE LA B (SEE SCANNED REPORT) PROTEIN, UA-OUTSIDE LAB OUTSIDE LAB (SEE SCANNED REPORT) HGB 13.3(A) 14.0 - 18.0 G/DL OUTSIDE LAB (SEE SCANNED REPORT) 01/07/2024 us History Per Patient LABORATORY Final Result OUTSIDE LAB (SEE SCANNED REPORT) documented in this encounter Care Teams Curb Hop Relationship Specialty Start Date End Date Elvis Flores MD [address] [place] [address] PCP - General 06/09/1998 documented as of this encounter
--- OUTSIDE RECORDS SUMMARY | 2024-01-19 07:59 | External Medical Summary ---
Author Name Unknown Address Unknown Organization K01:[facility] [place] [address] [place] [address] Laboratory Report Ordering Provider Test Date Status YA DEMARCO 01/08/2024 22:44:05 Final Anticoagulation may affect t esting. Refer to [facility] Test Catalog for a list of effects. Observation Date Value Abnormality Reference (Units ) Status aPTT panel - Platelet poor plasma 01/08/2024 22:44:05 53 Above high normal 21-38 (seconds) Final Performing Location [facility] [place] [address] [place] [address]
--- NOTE | 2024-01-19 08:23 | Hospitalist Progress Note ---
Date of Service January 19, 2024 Assessment & Plan (1) Septic shock: (2) Emphysematous cystitis: (3) Acute blood loss anemia: (4) CAD (coronary artery disease): (5) S/P coronary angioplasty: (6) Severe aortic stenosis: (7) Hyperglycemia due to type 2 diabetes mellitus: Plan This is an 83-year-old male who has a significant past medical history of CAD, chronic HFrEF with EF of 15% and current LifeVest in place, LBBB, aortic valve stenosis, HTN, HLD, T2DM and history of tobacco abuse who presents to ED secondary to gross hematuria. Pt recently hospitalized at [facility] 01/07-01/15 2/2 severe CAD, ischemic ELECTRICAL TECH and severe . S/P PCI x 6. EF post PCI was 30%, life vest placed, moderate to severe Hospital course complicated with ABL 2/2 Gross hematuria with mejia catheter requiring CBI, Hgb at d/c was 7.8. Discharged on GDMT with entreso, aldactone, metoprolol, jardiance, asa, plavix, statin and amiodarone due to vfib arrest Presents back to ED now secondary to gross hematuria around cath site, EMS found pt lethargic, SBP 90s. Received total of 1L of IVF in ED along with current ongoing infusion of 125cc/hr. Started on empiric Vanco and cefepime. Blood and urine cultures obtained, Lactic acidosis climbing on admission to 8.0, hgb down to 6.8. --CT abd pelvis:Mejia catheter is noted within a markedly distended urinary bladder which contains a large air-fluid level with intraluminal dependent debris/hemorrhage. Additionally, there is extensive air within the bladder wall suggestive of emphysematous cystitis with air extending into the adjacent pelvic veins, femoral veins, IVC and splenic vein.2. Small amount of portal venous gas within the left hepatic lobe. No definite pneumatosis or pneumoperitoneum.3. No bowel obstruction or bowel wall thickening.4. Bilateral mild to moderate hydroureteronephrosis secondary to the urinary bladder distention.5. Asymmetric deep tissue edema within the right proximal thigh may be on a post procedural bases. No large discrete hematoma identified. Septic Shock and cardiogenic shock Emphysematous cystitis Klebsiella bacteremia Klebsiella , Enterococcus UTI admitted to ICU (Dr. Rodrigues) initially plan was to transfer to [facility] when bed available, transfer initiated by ED Dr. Mooney, however now denied as he is improving Consulted urology - Mejia now draining well, recommend to keep for ~ 2 weeks, cont. abx treatment Consulted cardiology - continue dual antiplatelet therapy (given recent stents), transfuse prn, hold entresto, spironolactone Continued IV cefepime -> switched to vancomycin + ceftriaxone WBC increased from 18K to 36K --> now down to 26K Norepi infusion, goal MAP 65. Now off pressors transfused given hgb 6.8 and active bleeding, current Hgb 8.8 lactic acid improved monitor H&H, BMP CAD Severe Ischemic ELECTRICAL TECH EF 30% life vest in place/HFrEF s/p Vfib arrest Hx of HTN/HLD prescribed asa, plavix, statin, metoprolol, jardiance, entresto, aldactone, amiodarone s/p Cardiac Cath with PCI x 6, refer to HPI for cath summary Cardiology consulted, as above T2DM with hyperglycemia recent a1c 7.1, hold metformin, jardiance insulin gtt ordered Acute blood loss anemia 2/2 gross hematuria urology consulted s/p 2 units of pRBCs current Hgb 8.8, cont to monitor H&H ELIGIO - resolved baseline cr 1.0, bun/cr 48 and 1.66 ? post obstructive in setting of bladder hemorrhage vs ATN in setting of hypovolemia/shock seen by urology, catheter now draining well Cr improved now to 1 DVT ppx: SCDS given acute bleeding FULL CODE as discussed with at bedside PCP: Dr. Flores Dispo: ICU -> PCU Admission and Anticipated Discharge Date Admission Date: January 17, 2024 Subjective Pt seen in follow up Admitted to ICU d/t shock an pressor requirement Positive for Klebsiella in urine and blood Enterococcus faecalis in urine as well + hematuria - improved, + Mejia Recently discharged from [facility], s/p JULIET x6, on DOAC, low EF, Hx of [id number] cardiac arrest, for which he was transferred to [facility]. Currently laying in bed in NAD, much more awake and feeling better denies any chest pain, palpitations, shortness of breath, abd. pain, n/v Off pressors -> to be transferred out of ICU Review of Systems Review of Systems: All systems reviewed & are unremarkable except as noted in Subjective Physical Exam Physical Exam: Constitutional: + ill appearing e lderly M in NAD o n RA Eyes: PERRL, conjunctiva e normal, anicteri c sclerae ENMT: external ear and n ose normal Neck: +IJ line Respiratory: no respiratory dis tress and no labor ed breathing Cardiovascular: regular rate and r egular rhythm Hea rt Sounds: + syst. murmur , no LE ed karma Gastrointestinal ( Abdomen): normal bowel sound s, soft, nontender +Mejia (hematuria ) Musculoskeletal: Head/Neck/Chest: h ead atraumatic Results & Data Results & Data Vital Signs (Past 12 Hours) Vital Signs Temp Pulse Resp BP Pulse Ox 01/19/24 06:15 86 20 100 01/19/24 06:03 76 17 99 01/19/24 05:15 77 18 98 01/19/24 04:15 36.5 C 01/19/24 04:14 110/51 L 01/19/24 04:06 79 17 99 01/19/24 04:00 79 18 97 01/19/24 03:18 88 27 H 98 01/19/24 02:00 83 21 98 01/19/24 01:09 81 16 97 01/19/24 00:00 36.6 C 01/19/24 00:00 84 18 97 01/19/24 00:00 84 01/18/24 23:03 81 15 98 01/18/24 22:15 82 21 96 01/18/24 21:00 87 21 Laboratory Results 01/19/24 01/19/24 01/18/24 Range/Units 04:38 00:13 19:07 WBC 26.63 H (4.8-10.8) K/ul RBC 3.18 L (4.70-6.10) M/uL Hgb 8.8 L (14.0-18.0) g/dl Hct 27.2 L (42.0-52.0) % MCV 85.5 (80.0-100.0) fL MCH 27.7 (25.0-34.0) pg MCHC 32.4 (32.0-36.0) g/dL RDW Std Deviation 49.8 H (36.4-46.3) fL RDW Coeff of Erendira 16.0 H (11.5-14.5) % Plt Count 196 (130-400) K/uL MPV 10.1 (9.4-12.4) fL Immature Gran % (Auto) 3.1 % Neut % (Auto) 89.2 % Lymph % (Auto) 3.4 % Coffee % (Auto) 3.8 % Eos % (Auto) 0.3 % Baso % (Auto) 0.2 % Neut # (Auto) 23.78 H (1.40-6.50) K/uL Lymph # (Auto) 0.90 L (1.20-3.40) K/uL Coffee # (Auto) 1.00 H (0.11-0.59) K/uL Eos # (Auto) 0.07 (0.00-0.50) K/uL Baso # (Auto) 0.05 (0.00-0.20) K/uL Immature Gran # (Auto) 0.83 H (0.01-0.20) K/uL Dohle Bodies 1+ Polychromasia 1+ Echinocytes 1+ Sodium 134 L (136-145) mmol/L Potassium 4.5 (3.5-5.1) mmol/L Chloride 106 (98-107) mmol/L Carbon Dioxide 17 L (21-32) mmol/L Anion Gap 11 (3-11) BUN 39 H (6-23) mg/dl Creatinine 0.90 (0.6-1.4) mg/dl Est Cr Clr Drug Dosing 67.1 ml/min eGFR 84.22 BUN/Creatinine Ratio 43.3 H (10-20) Glucose 147 H (70-99(Fasting)) mg/dl POC Glucose 158 H (70-99) mg/dl POC Glucose (other) 155 H (70-99) mg/dl Calcium 8.1 L (8.6-10.3) mg/dl Phosphorus 3.6 (2.5-4.9) mg/dl Magnesium 2.4 (1.7-2.4) mg/dl Total Bilirubin 0.8 (0.2-1.0) mg/dl Direct Bilirubin 0.3 H (0-0.2) mg/dl AST 48 H (13-39) U/L ALT 22 (7-52) U/L Alkaline Phosphatase 66 (34-104) U/L Total Protein 5.8 L (6.0-8.3) gm/dl Albumin 2.9 L (3.4-5.0) gm/dl Crossmatch 01/18/24 01/18/24 01/18/24 Range/Units 12:58 10:04 09:15 WBC (4.8-10.8) K/ul RBC (4.70-6.10) M/uL Hgb (14.0-18.0) g/dl Hct (42.0-52.0) % MCV (80.0-100.0) fL MCH (25.0-34.0) pg MCHC (32.0-36.0) g/dL RDW Std Deviation (36.4-46.3) fL RDW Coeff of Erendira (11.5-14.5) % Plt Count (130-400) K/uL MPV (9.4-12.4) fL Immature Gran % (Auto) % Neut % (Auto) % Lymph % (Auto) % Coffee % (Auto) % Eos % (Auto) % Baso % (Auto) % Neut # (Auto) (1.40-6.50) K/uL Lymph # (Auto) (1.20-3.40) K/uL Coffee # (Auto) (0.11-0.59) K/uL Eos # (Auto) (0.00-0.50) K/uL Baso # (Auto) (0.00-0.20) K/uL Immature Gran # (Auto) (0.01-0.20) K/uL Dohle Bodies Polychromasia Echinocytes Sodium (136-145) mmol/L Potassium (3.5-5.1) mmol/L Chloride (98-107) mmol/L Carbon Dioxide (21-32) mmol/L Anion Gap (3-11) BUN (6-23) mg/dl Creatinine (0.6-1.4) mg/dl Est Cr Clr Drug Dosing ml/min eGFR BUN/Creatinine Ratio (10-20) Glucose (70-99(Fasting)) mg/dl POC Glucose (70-99) mg/dl POC Glucose (other) 156 H 157 H 157 H (70-99) mg/dl Calcium (8.6-10.3) mg/dl Phosphorus (2.5-4.9) mg/dl Magnesium (1.7-2.4) mg/dl Total Bilirubin (0.2-1.0) mg/dl Direct Bilirubin (0-0.2) mg/dl AST (13-39) U/L ALT (7-52) U/L Alkaline Phosphatase (34-104) U/L Total Protein (6.0-8.3) gm/dl Albumin (3.4-5.0) gm/dl Crossmatch 01/18/24 01/17/24 Range/Units 08:20 08:44 WBC (4.8-10.8) K/ul RBC (4.70-6.10) M/uL Hgb (14.0-18.0) g/dl Hct (42.0-52.0) % MCV (80.0-100.0) fL MCH (25.0-34.0) pg MCHC (32.0-36.0) g/dL RDW Std Deviation (36.4-46.3) fL RDW Coeff of Erendira (11.5-14.5) % Plt Count (130-400) K/uL MPV (9.4-12.4) fL Immature Gran % (Auto) % Neut % (Auto) % Lymph % (Auto) % Coffee % (Auto) % Eos % (Auto) % Baso % (Auto) % Neut # (Auto) (1.40-6.50) K/uL Lymph # (Auto) (1.20-3.40) K/uL Coffee # (Auto) (0.11-0.59) K/uL Eos # (Auto) (0.00-0.50) K/uL Baso # (Auto) (0.00-0.20) K/uL Immature Gran # (Auto) (0.01-0.20) K/uL Dohle Bodies Polychromasia Echinocytes Sodium 135 L (136-145) mmol/L Potassium 4.0 (3.5-5.1) mmol/L Chloride 106 (98-107) mmol/L Carbon Dioxide 18 L (21-32) mmol/L Anion Gap 11 (3-11) BUN 40 H (6-23) mg/dl Creatinine 1.04 (0.6-1.4) mg/dl Est Cr Clr Drug Dosing 58.0 ml/min eGFR 70.80 BUN/Creatinine Ratio 38.5 H (10-20) Glucose 157 H (70-99(Fasting)) mg/dl POC Glucose (70-99) mg/dl POC Glucose (other) (70-99) mg/dl Calcium 8.2 L (8.6-10.3) mg/dl Phosphorus (2.5-4.9) mg/dl Magnesium 2.4 (1.7-2.4) mg/dl Total Bilirubin (0.2-1.0) mg/dl Direct Bilirubin (0-0.2) mg/dl AST (13-39) U/L ALT (7-52) U/L Alkaline Phosphatase (34-104) U/L Total Protein (6.0-8.3) gm/dl Albumin (3.4-5.0) gm/dl Crossmatch See Detail Medications Administered Current Inpatient Medications Amiodarone HCl (Amiodarone 200 Mg Tab) 200 mg PO DAILY [facility] Stop: 02/18/24 08:59 Ascorbic Acid (Ascorbic Acid 500 Mg Tab) 125 mg PO DAILY [facility] Stop: 02/18/24 08:59 Aspirin (Aspirin 81 Mg Ectab) 81 mg PO QAM [facility] Stop: 02/17/24 11:14 Last Admin: 01/19/24 08:04 Dose: 81 mg Atorvastatin Calcium (Atorvastatin 40 Mg Tab) [facility] [place] [facility] Stop: 02/17/24 08:59 Last Admin: 01/19/24 08:04 Dose: 40 mg Clopidogrel Bisulfate (Clopidogrel Bisulfate 75 Mg Tab) [facility] [place] Stop: 02/17/24 11:14 Last Admin: 01/19/24 08:04 Dose: 75 mg Cyanocobalamin (Cyanocobalamin (B-12) 100 Mcg Tablet) 100 mcg PO DAILY [facility] Stop: 02/18/24 08:59 Dextrose (Dextrose 50% 50 Ml Syringe) 25 - 50 ml IV UD PRN; Protocol PRN Reason: Hypoglycemia Protocol Stop: 02/16/24 12:44 Glucagon (Glucagon For Inj 1 Mg Vial) 1 mg SQ UD PRN; Protocol PRN Reason: Hypoglycemia Protocol Stop: 02/16/24 12:44 Glucose (Glucose 40% Gel 15 Gm Tube) 15 - 30 gm PO UD PRN; Protocol PRN Reason: Hypoglycemia Protocol Stop: 02/16/24 12:44 Glucose (Glucose 10 Tab/Tube) 4 - 8 tab PO UD PRN; Protocol PRN Reason: Hypoglycemia Protocol Stop: 02/16/24 12:44 Heparin Sodium (Beef Lung) (Heparin 10 Unit/Ml 5 Ml Flush) 5 ml FLUSH PRN PRN PRN Reason: Flush Stop: 02/18/24 08:13 Ceftriaxone Sodium (Rocephin) 2,000 mg in 50 mls @ 100 mls/hr IV Q24H [facility] Stop: 01/29/24 07:59 Last Admin: 01/19/24 07:56 Dose: 100 mls/hr Insulin Aspart (Insulin Aspart Per Unit Charge) 0 units SC Q6 [facility] Stop: 02/17/24 11:59 Last Admin: 01/19/24 05:56 Dose: Not Given Miscellaneous (Carbohydrates For Hypoglycemia ) 15 - 30 gm PO UD PRN PRN Reason: Hypoglycemia Treatment Stop: 02/16/24 12:44
[2024-01-19] MEDS: ASCORBIC ACID 500 MG TAB PO SCH (09:43)
[2024-01-19] MEDS: CYANOCOBALAMIN (B-12) 100 MCG TABLET PO SCH (09:43)
[2024-01-19] MEDS: AMIODARONE 200 MG TAB PO SCH (09:43)
[2024-01-19] MEDS ORDERED: VANCOMYCIN CONSULT ACTIVE PRN (09:46)
--- NOTE | 2024-01-19 09:47 | Cardiology Progress Note ---
Date of Service January 19, 2024 Assessment & Plan (1) Acute blood loss anemia: (2) Hematuria: (3) Severe aortic stenosis: (4) S/P coronary angioplasty: (5) Sepsis: (6) Hemorrhagic shock: (7) Cardiogenic shock: Plan Complex 83-year-old male with recent discharge day prior to this current admission from [facility] after transfer following ovq-nh-[id number] cardiac arrest. 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 Patient presented with acute acute lethargy, hypotension and weakness with marked anemia. Findings consistent with mixed etiology cardiac and noncardiogenic shock. Contributing factors include blood loss anemia, meds, possible sepsis Patient on pressors with reasonable blood pressure and heart rate. Exam not reflective of acute volume overload Transfusion ongoing Recommendations: Unfortunately will require dual plate antiplatelet therapy given multivessel coronary stenting Would transfuse and taper pressors as blood pressure allows Hold Entresto, spironolactone 01/18/2024 Hemodynamically improving and patient more alert though patient remains on pressors. Laboratory studies reflecting evidence of sepsis complicated by cardiogenic and hemorrhagic shock. Recommendations Taper pressors as able. Resume dual antiplatelet therapy 01/19/2024 Patient clinically improved hemodynamics now improved off pressors. Issues addressed as follows 1. Mixed cardiogenic and noncardiogenic shock with sepsis profound blood loss anemia.: Has clinically responded hemoglobin 8.8, hemodynamically improved off pressors. 2. Severe cardiomyopathy, ischemic and valvular etiology 3. Moderate to severe aortic stenosis 4. Prior [id number] cardiac arrest Recommendations: Continue dual antiplatelet therapy, oral amiodarone As blood pressure improves would restart low-dose metoprolol succinate. No signs or symptoms of congestive heart failure currently Will not restart Entresto or diuretics at this time Continue to follow hemoglobin, treat sepsis Admission and Anticipated Discharge Date Admission Date: January 17, 2024 Subjective Patient seen and personally examined. Clinically improved. Alert answering questions. No chest pains or worsening shortness of breath. No sustained arrhythmias. Now off pressors taking medications orally. Celeste draining appropriately still with blood-tinged urine though less hemorrhagic. No fevers or chills Review of Systems Review of Systems: All systems reviewed & are unremarkable except as noted in Subjective Physical Exam Constitutional: no acute distress Eyes: PERRL, conjunctivae normal, anicteric sclerae ENMT: external ear and nose normal, oropharynx normal Neck: trachea midline, no thyromegaly Respiratory: no respiratory distress and no labored breathing Cardiovascular: Rate/Rhythm: regular rate and regular rhythm Heart Sounds: + murmur (Grade 2 over 6 systolic) Vessels: no JVD Extremities: no edema Gastrointestinal (Abdomen): normal bowel sounds, soft, nontender, no hepatosplenomegaly Musculoskeletal: Head/Neck/Chest: head atraumatic Results & Data Vital Signs (Past 12 Hours) Vital Signs Temp Pulse Resp BP Pulse Ox O2 Del Method 01/19/24 08:00 76 22 98 Room Air 01/19/24 08:00 75 01/19/24 07:00 81 20 98 Room Air 01/19/24 06:15 86 20 100 01/19/24 06:03 76 17 99 01/19/24 05:15 77 18 98 01/19/24 04:15 36.5 C 01/19/24 04:14 110/51 L 01/19/24 04:06 79 17 99 01/19/24 04:00 79 18 97 01/19/24 03:18 88 27 H 98 01/19/24 02:00 83 21 98 01/19/24 01:09 81 16 97 01/19/24 00:00 36.6 C 01/19/24 00:00 84 18 97 01/19/24 00:00 84 01/18/24 23:03 81 15 98 01/18/24 22:15 82 21 96 Laboratory Results Laboratory Results - last 24 hr 01/17/24 01/18/24 01/18/24 08:44 10:04 12:58 WBC RBC Hgb Hct MCV MCH MCHC RDW Std Deviation RDW Coeff of Erendira Plt Count MPV Immature Gran % (Auto) Neut % (Auto) Lymph % (Auto) Republic % (Auto) Eos % (Auto) Baso % (Auto) Neut # (Auto) Lymph # (Auto) Republic # (Auto) Eos # (Auto) Baso # (Auto) Immature Gran # (Auto) Dohle Bodies Polychromasia Echinocytes Sodium Potassium Chloride Carbon Dioxide Anion Gap BUN Creatinine Est Cr Clr Drug Dosing eGFR BUN/Creatinine Ratio Glucose POC Glucose POC Glucose (other) 157 H 156 H Calcium Phosphorus Magnesium Total Bilirubin Direct Bilirubin AST ALT Alkaline Phosphatase Total Protein Albumin Crossmatch See Detail 01/18/24 01/19/24 01/19/24 19:07 00:13 04:38 WBC 26.63 H RBC 3.18 L Hgb 8.8 L Hct 27.2 L MCV 85.5 MCH 27.7 MCHC 32.4 RDW Std Deviation 49.8 H RDW Coeff of Erendira 16.0 H Plt Count 196 MPV 10.1 Immature Gran % (Auto) 3.1 Neut % (Auto) 89.2 Lymph % (Auto) 3.4 Republic % (Auto) 3.8 Eos % (Auto) 0.3 Baso % (Auto) 0.2 Neut # (Auto) 23.78 H Lymph # (Auto) 0.90 L Republic # (Auto) 1.00 H Eos # (Auto) 0.07 Baso # (Auto) 0.05 Immature Gran # (Auto) 0.83 H Dohle Bodies 1+ Polychromasia 1+ Echinocytes 1+ Sodium 134 L Potassium 4.5 Chloride 106 Carbon Dioxide 17 L Anion Gap 11 BUN 39 H Creatinine 0.90 Est Cr Clr Drug Dosing 67.1 eGFR 84.22 BUN/Creatinine Ratio 43.3 H Glucose 147 H POC Glucose 158 H POC Glucose (other) 155 H Calcium 8.1 L Phosphorus 3.6 Magnesium 2.4 Total Bilirubin 0.8 Direct Bilirubin 0.3 H AST 48 H ALT 22 Alkaline Phosphatase 66 Total Protein 5.8 L Albumin 2.9 L Crossmatch
--- NOTE | 2024-01-19 09:57 | Pharmacy Report ---
Pharmacy PK ABX Note - Date of Service January 19, 2024 - Assessment and Plan Assessment 83 year old M receiving vancomycin + ceftriaxone for treatment of urinary tract infection. * Day #1 of Vancomycin and Ceftriaxone (Day #3 total abx) * Afebrile. Leukocytosis improved but still 26.6k. SCr continues to improve, down to 0.90 mg/dL this AM. * Urine culture grew Klebsiella oxytoca which is also in 1 of 4 bottles from blood cultures (R to ampicillin and cefazolin only). Likely will need ceftriaxone for 7-14 days for gram negative bacteremia. Today, enterococcus faecalis grew in urine culture as well, awaiting sensitivities. Starting vanc to cover this. Plan Vancomycin * Loading dose: 1750 mg IV x 1 * Maintenance dose: 750 mg IV every 12 hours * Regimen is predicted to achieve target AUC/ARDEN between 400-600 (456). * Will order a trough level for 01/21/24 Pharmacy will continue to follow and will adjust dose/frequency as necessary. Thank you. Pharmacy has transitioned to AUC monitoring for vancomycin. AUC/ARDEN is the preferred PK/PD target and is associated with decreased risk of nephrotoxicity compared to traditional trough targets.
[2024-01-19] MEDS: VANCOMYCIN HCL 1,750 MG in SODIUM CHLORIDE 0.9% 500 ML IV STA (10:26)
--- NOTE | 2024-01-19 11:31 | Critical Care Progress Note ---
Date of Service January 19, 2024 Assessment & Plan (1) Septic shock: (2) Hematuria: (3) Severe aortic stenosis: (4) Acute hypotension: (5) Complicated urinary tract infection: (6) Cardiogenic shock: (7) Hemorrhagic shock: Plan Complex 83-year-old male with a history of type 2 diabetes mellitus with recent cardiac arrest, ischemic cardiomyopathy and a history of ventricular fibrillation who presented to the hospital due to acute blood loss anemia from his Celeste catheter, septic shock related to a complicated urinary tract infection and severe hyperglycemia. He was just discharged from [facility] for severe coronary ischemia. Neurologic: No acute concerns. Pulmonary: Not currently requiring supplemental oxygen. Chest CTA this admission revealed mildly nonspecific enlarged mediastinal lymph nodes. No evidence of pneumonia or pleural effusions. No PE. Bilateral rib fractures noted which are nondisplaced likely related to CPR he received prior to his last admission due to yva-wh-irowzbog cardiac arrest. Cardiovascular: Recent lau-le-ijuglose cardiac arrest with ventricular fibrillation. Underwent PCI x 6 and was placed on on dual antiplatelet therapy. Continue dual antiplatelet therapy today as hemoglobin remained stable and very high risk for restenosis of stents. Holding antihypertensives and systolic heart failure directed therapy due to hypotension. Patient weaned off Levophed. Gastrointestinal: CT of his abdomen pelvis revealed markedly distended urinary bladder with air- fluid levels and intraluminal hemorrhage. Emphysematous cystitis noted. Small portal venous gas within the left hepatic lobe. Bilateral mild to moderate hydroureteronephrosis. Asymmetric deep tissue edema within the right proximal thigh. Renal: ELIGIO resolving. Patient continues with mild acidosis perhaps from RTA. Infectious disease: Patient with evidence of a severe complicated urinary tract infection. Appreciate urology input. Klebsiella and Enterococcus growing from urine. Blood growing Klebsiella. Antibiotics changed to vancomycin and ceftriaxone. Hematologic: Patient with hemorrhagic shock secondary to severe hematuria. Urology input noted. Hemoglobin stable. Dual antiplatelet therapy restarted due to recent drug-eluting stents x 6. Hemoglobin stable. Endocrine: Patient with a history of mild hypothyroidism with a TSH of 8.7 checked last month. DKA resolving. Maintain euglycemia. Lines and tubes: [address] along with Celeste catheter. Right internal jugular line and left radial arterial catheter removed 01/19/2024. VTE prophylaxis: SCDs CODE STATUS: DNR/DNI Family at bedside: None currently available at bedside. Disposition: Downgrade to PCU. Care coordinated with ICU nurse and pharmacist. Admission and Anticipated Discharge Date Admission Date: January 17, 2024 Subjective Patient significantly improved today. Off vasopressors. Arterial line and internal jugular central line removed. Patient more conversive today. Denies any overt complaints aside from mild joint aches and pains. He is sitting in a chair position with his hospital bed. Hematuria improving. Review of Systems Review of Systems: All systems reviewed & are unremarkable except as noted in HPI & below Physical Exam Constitutional: no acute distress Eyes: PERRL, conjunctivae normal, anicteric sclerae ENMT: external ear and nose normal, oropharynx normal Neck: trachea midline, no thyromegaly Respiratory: no respiratory distress and no labored breathing Cardiovascular: Rate/Rhythm: regular rate and regular rhythm Heart Sounds: + murmur (Grade 2 over 6 systolic) Vessels: no JVD Extremities: no edema Gastrointestinal (Abdomen): normal bowel sounds, soft, nontender, no hepatosplenomegaly Musculoskeletal: Head/Neck/Chest: head atraumatic Results & Data Results & Data Vital Signs (Past 12 Hours) Vital Signs Temp Pulse Resp BP Pulse Ox O2 Del Method 01/19/24 09:17 101/54 L 01/19/24 09:02 81 17 98 Room Air 01/19/24 08:45 Room Air 01/19/24 08:00 76 22 98 Room Air 01/19/24 08:00 75 01/19/24 07:00 81 20 98 Room Air 01/19/24 06:15 86 20 100 01/19/24 06:03 76 17 99 01/19/24 05:15 77 18 98 01/19/24 04:15 36.5 C 01/19/24 04:14 110/51 L 01/19/24 04:06 79 17 99 01/19/24 04:00 79 18 97 01/19/24 03:18 88 27 H 98 01/19/24 02:00 83 21 98 01/19/24 01:09 81 16 97 01/19/24 00:00 36.6 C 01/19/24 00:00 84 18 97 01/19/24 00:00 84 Coding Level of Care Code 21313 CRITICAL CARE 1ST 30-74M Diagnoses Septic shock A41.9; R65.21 Hematuria R31.9 Severe aortic stenosis I35.0 Acute hypotension I95.9 Complicated urinary tract infection N39.0 Cardiogenic shock R57.0 Hemorrhagic shock R57.8
[2024-01-19] MEDS: INSULIN ASPART PER UNIT CHARGE SC SCH (11:52)
[2024-01-19] MEDS: VANCOMYCIN 750 MG in SODIUM CHLORIDE 0.9% 250 ML IV SCH (21:12)
[2024-01-20 05:10] LABS: Albumin Level 2.9 gm/dl (3.4-5.0); BUN Creatinine Ratio 35.8 (10-20); Bilirubin Direct 0.1 mg/dl (0-0.2); Bilirubin,Total 0.7 mg/dl (0.2-1.0); Creatinine Clr Calc Pharmacy 74.5 ml/min; Magnesium 2.2 mg/dl (1.7-2.4); Phosphorus 2.9 mg/dl (2.5-4.9); Potassium 4.2 mmol/L (3.5-5.1); Total Protein 5.6 gm/dl (6.0-8.3)
[2024-01-20 05:25] LABS: Basophils # (auto) 0.02 K/uL (0.00-0.20); Basophils % (auto) 0.1 %; Eosinophils # (auto) 0.16 K/uL (0.00-0.50); Hematocrit (blood only) 26.1 % (42.0-52.0); Hemoglobin 8.4 g/dl (14.0-18.0); Immature Granulocytes # (auto) 0.15 K/uL (0.01-0.20); Immature Granulocytes % (auto) 0.9 %; Lymphocytes % (auto) 5.5 %; Mean Corpuscular Hemoglobin 27.5 pg (25.0-34.0); Mean Corpuscular Hgb Conc 32.2 g/dL (32.0-36.0); Mean Corpuscular Volume 85.6 fL (80.0-100.0); Mean Platelet Volume 9.8 fL (9.4-12.4); Monocytes # (auto) 0.68 K/uL (0.11-0.59); Monocytes % (auto) 4.1 %; Neutrophils # (auto) 14.53 K/uL (1.40-6.50); Neutrophils % (auto) 88.4 %; Platelet Count 184 K/uL (130-400); RDW Coefficient of Variation 15.7 % (11.5-14.5); RDW Standard Deviation 48.8 fL (36.4-46.3); Red Blood Count 3.05 M/uL (4.70-6.10); White Blood Count 16.44 K/ul (4.8-10.8)
--- NOTE | 2024-01-20 07:18 | Hospitalist Progress Note ---
Date of Service January 20, 2024 Assessment & Plan (1) Septic shock: (2) Emphysematous cystitis: (3) Acute blood loss anemia: (4) CAD (coronary artery disease): (5) S/P coronary angioplasty: (6) Severe aortic stenosis: (7) Hyperglycemia due to type 2 diabetes mellitus: Plan This is an 83-year-old male who has a significant past medical history of CAD, chronic HFrEF with EF of 15% and current LifeVest in place, LBBB, aortic valve stenosis, HTN, HLD, T2DM and history of tobacco abuse who presents to ED secondary to gross hematuria. Pt recently hospitalized at [facility] 01/07-01/15 2/2 severe CAD, ischemic HAT BLOCK BENCH HAND and severe . S/P PCI x 6. EF post PCI was 30%, life vest placed, moderate to severe Hospital course complicated with ABL 2/2 Gross hematuria with mejia catheter requiring CBI, Hgb at d/c was 7.8. Discharged on GDMT with entreso, aldactone, metoprolol, jardiance, asa, plavix, statin and amiodarone due to vfib arrest Presents back to ED now secondary to gross hematuria around cath site, EMS found pt lethargic, SBP 90s. Received total of 1L of IVF in ED along with current ongoing infusion of 125cc/hr. Started on empiric Vanco and cefepime. Blood and urine cultures obtained, Lactic acidosis climbing on admission to 8.0, hgb down to 6.8. --CT abd pelvis:Mejia catheter is noted within a markedly distended urinary bladder which contains a large air-fluid level with intraluminal dependent debris/hemorrhage. Additionally, there is extensive air within the bladder wall suggestive of emphysematous cystitis with air extending into the adjacent pelvic veins, femoral veins, IVC and splenic vein.2. Small amount of portal venous gas within the left hepatic lobe. No definite pneumatosis or pneumoperitoneum.3. No bowel obstruction or bowel wall thickening.4. Bilateral mild to moderate hydroureteronephrosis secondary to the urinary bladder distention.5. Asymmetric deep tissue edema within the right proximal thigh may be on a post procedural bases. No large discrete hematoma identified. Septic Shock and cardiogenic shock Emphysematous cystitis Klebsiella bacteremia Klebsiella , Enterococcus UTI admitted to ICU (Dr. Rodrigues) initially plan was to transfer to [facility] when bed available, transfer initiated by ED Dr. Mooney, however now denied as he is improving Consulted urology - Mejia now draining well, recommend to keep for ~ 2 weeks, cont. abx treatment Consulted cardiology - continue dual antiplatelet therapy (given recent stents), transfuse prn, hold entresto, spironolactone Continued IV cefepime -> switched to vancomycin + ceftriaxone WBC increased from 18K to 36K --> now down to 26K -> 16K ID consulted - will switch to IV Unasyn, then Levaquin on DC to complete of total of 2 weeks of abx Norepi infusion, goal MAP 65. Now off pressors transfused given hgb 6.8 and active bleeding (but bleeding improved), current Hgb 8.4 lactic acid improved monitor H&H, BMP CAD Severe Ischemic HAT BLOCK BENCH HAND EF 30% life vest in place/HFrEF s/p Vfib arrest Hx of HTN/HLD prescribed asa, plavix, statin, metoprolol, jardiance, entresto, aldactone, amiodarone s/p Cardiac Cath with PCI x 6, refer to HPI for cath summary Cardiology consulted, as above T2DM with hyperglycemia recent a1c 7.1, hold metformin, jardiance insulin gtt ordered Acute blood loss anemia 2/2 gross hematuria urology consulted s/p 2 units of pRBCs current Hgb 8.8, cont to monitor H&H ELIGIO - resolved baseline cr 1.0, bun/cr 48 and 1.66 ? post obstructive in setting of bladder hemorrhage vs ATN in setting of hypovolemia/shock seen by urology, catheter now draining well Cr improved now to 1 DVT ppx: SCDS given acute bleeding FULL CODE as discussed with at bedside PCP: Dr. Flores Dispo: PCU Admission and Anticipated Discharge Date Admission Date: January 17, 2024 Subjective Pt seen in follow up Admitted to ICU d/t shock and pressor requirement Positive for Klebsiella in urine and blood Enterococcus faecalis in urine as well + hematuria - improved, + Mejia Recently discharged from [facility], s/p JULIET x6, on DOAC, low EF, Hx of [id number] cardiac arrest, for which he was transferred to [facility]. Currently laying in bed in [facility], much more awake and feeling better denies any chest pain, palpitations, shortness of breath, abd. pain, n/v Off pressors Review of Systems Review of Systems: All systems reviewed & are unremarkable except as noted in Subjective Physical Exam Physical Exam: Constitutional: + ill appearing e lderly M in NAD o n RA Eyes: PERRL, conjunctiva e normal, anicteri c sclerae ENMT: external ear and n ose normal Neck: supple Respiratory: no respiratory dis tress and no labor ed breathing Cardiovascular: regular rate and r egular rhythm Hea rt Sounds: + syst. murmur , no LE ed karma Gastrointestinal ( Abdomen): normal bowel sound s, soft, nontender +Mejia (hematuria ) Musculoskeletal: Head/Neck/Chest: h ead atraumatic Results & Data Results & Data Vital Signs (Past 12 Hours) Vital Signs Pulse Resp BP Pulse Ox 01/20/24 03:36 74 19 96 01/20/24 02:24 79 19 01/20/24 02:00 104/56 L 01/20/24 02:00 104/56 L 01/20/24 02:00 104/56 L 01/20/24 01:39 78 19 91 01/20/24 01:06 76 19 96 01/20/24 01:00 93/39 L 01/20/24 00:57 79 17 97 01/20/24 00:09 73 22 95 01/20/24 00:00 98/55 L 01/20/24 00:00 98/55 L 01/20/24 00:00 98/55 L 01/19/24 23:51 69 13 97 01/19/24 23:06 78 18 97 01/19/24 23:00 100/57 L 01/19/24 23:00 100/57 L 01/19/24 22:54 84 19 98 01/19/24 22:00 96/52 L 01/19/24 22:00 96/52 L 01/19/24 22:00 96/52 L 01/19/24 22:00 73 17 97 01/19/24 21:06 79 17 96 01/19/24 21:00 102/45 L 01/19/24 21:00 102/45 L 01/19/24 20:42 80 19 96 01/19/24 20:12 79 17 96 01/19/24 20:00 87/46 L 12/08/24 20:00 87/46 L 01/19/24 19:48 83 19 99 Laboratory Results 01/20/24 01/19/24 01/19/24 Range/Units 04:32 20:45 15:48 WBC 16.44 H D (4.8-10.8) K/ul RBC 3.05 L (4.70-6.10) M/uL Hgb 8.4 L (14.0-18.0) g/dl Hct 26.1 L (42.0-52.0) % MCV 85.6 (80.0-100.0) fL MCH 27.5 (25.0-34.0) pg MCHC 32.2 (32.0-36.0) g/dL RDW Std Deviation 48.8 H (36.4-46.3) fL RDW Coeff of Erendira 15.7 H (11.5-14.5) % Plt Count 184 (130-400) K/uL MPV 9.8 (9.4-12.4) fL Immature Gran % (Auto) 0.9 % Neut % (Auto) 88.4 % Lymph % (Auto) 5.5 % Dukes % (Auto) 4.1 % Eos % (Auto) 1.0 % Baso % (Auto) 0.1 % Neut # (Auto) 14.53 H (1.40-6.50) K/uL Lymph # (Auto) 0.90 L (1.20-3.40) K/uL Dukes # (Auto) 0.68 H (0.11-0.59) K/uL Eos # (Auto) 0.16 (0.00-0.50) K/uL Baso # (Auto) 0.02 (0.00-0.20) K/uL Immature Gran # (Auto) 0.15 (0.01-0.20) K/uL Sodium 134 L (136-145) mmol/L Potassium 4.2 (3.5-5.1) mmol/L Chloride 107 (98-107) mmol/L Carbon Dioxide 20 L (21-32) mmol/L Anion Gap 7 (3-11) BUN 29 H (6-23) mg/dl Creatinine 0.81 (0.6-1.4) mg/dl Est Cr Clr Drug Dosing 74.5 ml/min eGFR 86.94 BUN/Creatinine Ratio 35.8 H (10-20) Glucose 130 H (70-99(Fasting)) mg/dl POC Glucose 168 H 195 H (70-99) mg/dl Calcium 8.0 L (8.6-10.3) mg/dl Phosphorus 2.9 (2.5-4.9) mg/dl Magnesium 2.2 (1.7-2.4) mg/dl Total Bilirubin 0.7 (0.2-1.0) mg/dl Direct Bilirubin 0.1 (0-0.2) mg/dl AST 24 (13-39) U/L ALT 17 (7-52) U/L Alkaline Phosphatase 65 (34-104) U/L Total Protein 5.6 L (6.0-8.3) gm/dl Albumin 2.9 L (3.4-5.0) gm/dl 01/19/24 Range/Units 11:03 WBC (4.8-10.8) K/ul RBC (4.70-6.10) M/uL Hgb (14.0-18.0) g/dl Hct (42.0-52.0) % MCV (80.0-100.0) fL MCH (25.0-34.0) pg MCHC (32.0-36.0) g/dL RDW Std Deviation (36.4-46.3) fL RDW Coeff of Erendira (11.5-14.5) % Plt Count (130-400) K/uL MPV (9.4-12.4) fL Immature Gran % (Auto) % Neut % (Auto) % Lymph % (Auto) % Dukes % (Auto) % Eos % (Auto) % Baso % (Auto) % Neut # (Auto) (1.40-6.50) K/uL Lymph # (Auto) (1.20-3.40) K/uL Dukes # (Auto) (0.11-0.59) K/uL Eos # (Auto) (0.00-0.50) K/uL Baso # (Auto) (0.00-0.20) K/uL Immature Gran # (Auto) (0.01-0.20) K/uL Sodium (136-145) mmol/L Potassium (3.5-5.1) mmol/L Chloride (98-107) mmol/L Carbon Dioxide (21-32) mmol/L Anion Gap (3-11) BUN (6-23) mg/dl Creatinine (0.6-1.4) mg/dl Est Cr Clr Drug Dosing ml/min eGFR BUN/Creatinine Ratio (10-20) Glucose (70-99(Fasting)) mg/dl POC Glucose 181 H (70-99) mg/dl Calcium (8.6-10.3) mg/dl Phosphorus (2.5-4.9) mg/dl Magnesium (1.7-2.4) mg/dl Total Bilirubin (0.2-1.0) mg/dl Direct Bilirubin (0-0.2) mg/dl AST (13-39) U/L ALT (7-52) U/L Alkaline Phosphatase (34-104) U/L Total Protein (6.0-8.3) gm/dl Albumin (3.4-5.0) gm/dl Medications Administered Current Inpatient Medications Amiodarone HCl (Amiodarone 200 Mg Tab) 200 mg PO DAILY [facility] Stop: 02/18/24 08:59 Last Admin: 01/19/24 09:43 Dose: 200 mg Ascorbic Acid (Ascorbic Acid 500 Mg Tab) 125 mg PO DAILY [facility] Stop: 02/18/24 08:59 Last Admin: 01/19/24 09:43 Dose: 125 mg Aspirin (Aspirin 81 Mg Ectab) 81 mg PO [facility] Stop: 02/17/24 11:14 Last Admin: 01/19/24 08:04 Dose: 81 mg Atorvastatin Calcium (Atorvastatin 40 Mg Tab) 40 mg PO [facility] Stop: 02/17/24 08:59 Last Admin: 01/19/24 08:04 Dose: 40 mg Clopidogrel Bisulfate (Clopidogrel Bisulfate 75 Mg Tab) [facility] Stop: 02/17/24 11:14 Last Admin: 01/19/24 08:04 Dose: 75 mg Cyanocobalamin (Cyanocobalamin (B-12) 100 Mcg Tablet) 100 mcg PO DAILY [facility] Stop: 02/18/24 08:59 Last Admin: 01/19/24 09:43 Dose: 100 mcg Dextrose (Dextrose 50% 50 Ml Syringe) 25 - 50 ml IV UD PRN; Protocol PRN Reason: Hypoglycemia Protocol Stop: 02/16/24 12:44 Glucagon (Glucagon For Inj 1 Mg Vial) 1 mg SQ UD PRN; Protocol PRN Reason: Hypoglycemia Protocol Stop: 02/16/24 12:44 Glucose (Glucose 40% Gel 15 Gm Tube) 15 - 30 gm PO UD PRN; Protocol PRN Reason: Hypoglycemia Protocol Stop: 02/16/24 12:44 Glucose (Glucose 10 Tab/Tube) 4 - 8 tab PO UD PRN; Protocol PRN Reason: Hypoglycemia Protocol Stop: 02/16/24 12:44 Heparin Sodium (Beef Lung) (Heparin 10 Unit/Ml 5 Ml Flush) 5 ml FLUSH PRN PRN PRN Reason: Flush Stop: 02/18/24 08:13 Ceftriaxone Sodium (Rocephin) 2,000 mg in 50 mls @ 100 mls/hr IV Q24H [facility] Stop: 01/29/24 07:59 Last Infusion: 01/19/24 09:45 Dose: Infused Vancomycin HCl 750 mg/ Sodium (Chloride) 265 mls @ 200 mls/hr IV Q12H [facility] Stop: 01/29/24 21:59 Last Infusion: 01/19/24 22:32 Dose: Infused Insulin Aspart (Insulin Aspart Per Unit Charge) 0 units SC ACHS [facility] Stop: 02/17/24 11:59 Last Admin: 01/19/24 20:52 Dose: 1 units Miscellaneous (Carbohydrates For Hypoglycemia ) 15 - 30 gm PO UD PRN PRN Reason: Hypoglycemia Treatment Stop: 02/16/24 12:44 Miscellaneous Information (Vancomycin Consult Active) 1 each N/A UD PRN PRN Reason: Consult Stop: 02/18/24 09:45
--- NOTE | 2024-01-20 11:11 | Cardiology Progress Note ---
Date of Service January 20, 2024 Assessment & Plan (1) Sepsis: (2) Complicated urinary tract infection: (3) Severe aortic stenosis: (4) S/P coronary angioplasty: Plan * Klebsiella / Enterococcus Faecalis on urine culture and one blood culture * Hematuria * Need for dual antiplatelet therapy due to recent multivessel PCI in setting of recent survived VF arrest , severe , new severe LV dysfunction. * Continue oral amiodarone * Entresto remains on hold. * SCDs for DVT prophylaxis. Admission and Anticipated Discharge Date Admission Date: January 17, 2024 Subjective Patient seen in cardiology follow up. No cardiac complaints at present. Denies chest pain or shortness breath. Telemetry revels SR in the 80s. Review of Systems Review of Systems: All systems reviewed & are unremarkable except as noted in HPI & below Physical Exam Constitutional: WD/WN, vitals as above Cardiovascular: Rate/Rhythm: regular rate Heart Sounds: + murmur (2/6 SM ) Vessels: no JVD Extremities: no edema Gastrointestinal (Abdomen): normal bowel sounds, soft, nontender, no hepatosplenomegaly Genitourinary: Celeste catheter in place, mild ongoing hematuria. Results & Data Vital Signs (Past 12 Hours) Vital Signs Pulse Resp BP Pulse Ox O2 Del Method 01/20/24 08:35 Room Air 01/20/24 08:00 117/65 01/20/24 07:54 82 21 97 Room Air 01/20/24 07:21 78 16 98 Room Air 01/20/24 07:11 73 01/20/24 03:36 74 19 96 01/20/24 02:24 79 19 01/20/24 02:00 104/56 L 01/20/24 02:00 104/56 L 01/20/24 02:00 104/56 L 01/20/24 01:39 78 19 91 01/20/24 01:06 76 19 96 01/20/24 01:00 93/39 L 01/20/24 00:57 79 17 97 01/20/24 00:09 73 22 95 01/20/24 00:00 98/55 L 01/20/24 00:00 98/55 L 01/20/24 00:00 98/55 L 01/19/24 23:51 69 13 97 Laboratory Results Cardiac Enzymes 01/20/24 Range/Units 04:32 AST 24 (13-39) U/L CBC 01/20/24 Range/Units 04:32 WBC 16.44 H D (4.8-10.8) K/ul RBC 3.05 L (4.70-6.10) M/uL Hgb 8.4 L (14.0-18.0) g/dl Hct 26.1 L (42.0-52.0) % Plt Count 184 (130-400) K/uL Neut # (Auto) 14.53 H (1.40-6.50) K/uL Lymph # (Auto) 0.90 L (1.20-3.40) K/uL [place] # (Auto) 0.68 H (0.11-0.59) K/uL Eos # (Auto) 0.16 (0.00-0.50) K/uL Baso # (Auto) 0.02 (0.00-0.20) K/uL Comprehensive Metabolic Panel 01/20/24 Range/Units 04:32 Sodium 134 L (136-145) mmol/L Potassium 4.2 (3.5-5.1) mmol/L Chloride 107 (98-107) mmol/L Carbon Dioxide 20 L (21-32) mmol/L BUN 29 H (6-23) mg/dl Creatinine 0.81 (0.6-1.4) mg/dl Glucose 130 H (70-99(Fasting)) mg/dl Calcium 8.0 L (8.6-10.3) mg/dl Direct Bilirubin 0.1 (0-0.2) mg/dl AST 24 (13-39) U/L ALT 17 (7-52) U/L Alkaline Phosphatase 65 (34-104) U/L Total Protein 5.6 L (6.0-8.3) gm/dl Albumin 2.9 L (3.4-5.0) gm/dl Intake and Output 01/19/24 01/20/24 01/20/24 22:59 06:59 14:59 Intake Total 385 / 1207.333 120 / 1207.333 50 / 50 Output Total 550 / 1400 300 / 1400 75 / 75 Balance -165 / -192.667 -180 / -192.667 -25 / -25 Intake: IV 265 / 967.333 50 / 50 Vancomycin HCl 750 mg In Sodium 265 / 265 Chloride 0.9% 250 ml @ 200 mls /hr IV Q12H [facility] Rx#:[id number] cefTRIAXone SODIUM 2,000 mg In 50 / 50 50 ml @ 100 mls/hr IV Q24H [facility] Rx#:[id number] Oral 120 / 240 120 / 240 Output: Urine Amount (Catheter) 550 / 1400 300 / 1400 75 / 75 3-way Urethral 550 / 1100 75 / 75 Celeste/Indwelling 300 / 300 Other: Weight 84.5 kg Patient Weight 01/21/24 06:59 Weight 84.5 kg
--- NOTE | 2024-01-20 13:26 | Infectious Disease Consult ---
Date of Service January 20, 2024 Telehealth Information I performed this visit using a real-time telehealth connection between my location and the patients location ([facility]). After connecting through interactive tele-video, patient was identified by name and date of and/or wristband check.Patient (or authorized healthcare front desk representative) was informed that this was a telemedicine visit and it was being conducted confidentially over secure lines. My office door was closed and no one else was present in the room with me.Patient (or authorized healthcare front desk representative) provided consent to proceed with the visit, expressed an understanding of privacy and security of the telemedicine visit, and gave permission to have a hospital front desk representative in the room in order to assist with the visit and to conduct portions of the visit, as needed. I informed the patient (or authorized healthcare front desk representative) that I reviewed their record and presented the opportunity for them to ask any questions regarding the visit today. The patient agreed to participate. Assessment & Plan (1) Bacteremia due to Gram-negative bacteria: (2) Complicated urinary tract infection: (3) Emphysematous cystitis: (4) Hematuria: Plan 1. Please discontinue both IV ceftriaxone and IV vancomycin and start on IV Unasyn. 2. Please continue on IV Unasyn while inpatient and discharged on oral Levaquin 750 mg once daily to complete a course of 2 weeks including inpatient appropriate antibiotics. 3. Thank you for consulting ID. We will sign off for now. THIS NOTE IS NOT BILLABLE I WAS UNABLE TO SEE THE PATIENT BECAUSE OF SOFTWARE ISSUES. History of Present Illness History of Present Illness Mr. Love is a 83-year-old man with medical history of CAD, ischemic cardiomyopathy with heart failure reduced ejection, life vest in place, left bundle branch block, aortic valve stenosis, HTN, and type 2 diabetes who was admitted to [facility] on 01/17/2024 because of hematuria. He was recently admitted to [facility] 01/07 - 01/15 because of cardiac arrest after ventricular fibrillation and was eventually discharged on amiodarone and LifeVest. During that admission, he was found to have gross hematuria which required continuous bladder irrigation and failed the trial to void. Thus, he was discharged with indwelling Celeste catheter. While at home, 1 day prior to presentation, he started noticing blood in urine again which prompted his admission to [facility]. On presentation, he was hypotensive and tachypneic requiring around 2 L of oxygen via nasal cannula. Initial workup showed leukocytosis of 18 (ANC 16), with lactic acidosis and ELIGIO. CT scan abdomen pelvis was suggestive of emphysematous cystitis. Shortly after admission, blood culture came back positive for Klebsiella oxytocia. ID team was consulted for further recommendations and to help guide management. Allergies Allergy/AdvReac Type Severity Reaction Status Date / Time No Known Allergies Allergy Verified 01/07/24 19:19 Home Medications Medication Instructions Recorded Confirmed Type atorvastatin 40 mg tablet 40 mg PO QAM 12/03/18 01/17/24 History cholecalciferol (vitamin D3) 25 1,000 unit PO QAM 12/03/18 01/17/24 History mcg (1,000 unit) capsule empagliflozin 25 mg tablet 25 mg PO QAM 06/29/22 01/17/24 History (Jardiance) ascorbic acid (vitamin C) 125 mg 125 mg PO DAILY 01/07/24 01/17/24 History chewable tablet (Vitamin C) cyanocobalamin (vitamin B-12) 100 100 mcg PO DAILY 01/07/24 01/17/24 History mcg tablet glipizide 5 mg tablet, extended 5 mg PO QAM 01/07/24 01/17/24 History release 24 hr metformin 1,000 mg tablet 1,000 mg PO BID 01/07/24 01/17/24 History aspirin 81 mg chewable tablet 81 mg PO QAM #0 tabs 01/08/24 01/17/24 Rx ([facility]) amiodarone 200 mg tablet 200 mg PO DAILY 01/17/24 01/17/24 History clopidogrel 75 mg tablet 75 mg PO DAILY 01/17/24 01/17/24 History metoprolol succinate 25 mg 25 mg PO DAILY 01/17/24 01/17/24 History tablet,extended release 24 hr sacubitril 24 mg-valsartan 26 mg 1 tab PO BID 01/17/24 01/17/24 History tablet (Entresto) spironolactone 25 mg tablet 12.5 mg PO DAILY 01/17/24 01/17/24 History tamsulosin 0.4 mg capsule 0.4 mg PO HS 01/17/24 01/17/24 History Patient History Medical History Aortic valve sclerosis followed with Dr Velasquez Diabetes mellitus, type 2 NIDDM History of anemia r/t GI bleed in 11/2018. EGD and x5 units of blood History of GI bleed (11/2018) Hypertension Hyperlipidemia History of COVID-29 Nov 2021 > not hospitalized Surgical History S/P carpal tunnel release (05/15/23) right History of left cataract extraction History of tooth extraction History of tonsillectomy History of esophagogastroduodenoscopy (EGD) 12/04/2018. propofol no issues. History of colonoscopy 10/2010 colonoscopy: Sigmoid diverticulosis Family History Father Diabetes Bladder cancer Mother Diabetes Other No family history of adverse response to anesthesia Social History Smoking Status: Unknown if ever smoked Tobacco Type: Cigarettes Second Hand Exposure: No; Do You Dip or Chew Tobacco: No; Hx Alcohol Use: No Hx Substance Use: No Preferred Language: Mongolian Communication Ability: Effective Risk Assessment Consultant Required: No Beliefs That Will Affect Care: None Current Living Situation: Spouse Feels Safe at Home: Yes Assistive Devices: None Review of Systems Negative except for what was mentioned in the H&P. Physical Exam Could not be performed as the visit was conducted via TeleMed. Results & Data Vital Signs (Past 12 Hours) Vital Signs Pulse Resp BP Pulse Ox O2 Del Method 01/20/24 12:00 104/58 L 01/20/24 11:51 86 23 98 01/20/24 11:06 81 22 97 01/20/24 11:00 103/58 L 01/20/24 10:57 81 20 98 01/20/24 10:00 83 21 96 01/20/24 10:00 110/64 01/20/24 09:00 85 18 97 01/20/24 09:00 111/64 01/20/24 08:35 Room Air 01/20/24 08:00 117/65 01/20/24 07:54 82 21 97 Room Air 01/20/24 07:21 78 16 98 Room Air 01/20/24 07:11 73 01/20/24 03:36 74 19 96 01/20/24 02:24 79 19 01/20/24 02:00 104/56 L 01/20/24 02:00 104/56 L 01/20/24 02:00 104/56 L 01/20/24 01:39 [address] scan abdomen pelvis performed on 01/16: 1. Celeste catheter is noted within a markedly distended urinary bladder which contains a large air-fluid level with intraluminal dependent debris/hemorrhage. Additionally, there is extensive air within the bladder wall suggestive of emphysematous cystitis with air extending into the adjacent pelvic veins, femoral veins, IVC and splenic vein. 2. Small amount of portal venous gas within the left hepatic lobe. No definite pneumatosis or pneumoperitoneum. 3. No bowel obstruction or bowel wall thickening. 4. Bilateral mild to moderate hydroureteronephrosis secondary to the urinary bladder distention. 5. Asymmetric deep tissue edema within the right proximal thigh may be on a post procedural bases. No large discrete hematoma identified. 6. Cholelithiasis. 7. Unchanged appearance of the acute bilateral anterior rib fractures which are nondisplaced. These may be secondary to prior chest compressions. Diagnostic Findings Microbiology: 01/16: 1 of 4 bottles of blood culture positive for Klebsiella oxytocia 01/16: Urine culture positive for Klebsiella oxytocia and Enterococcus faecalis 01/18: 2 sets of blood culture negative to date
--- NOTE | 2024-01-20 13:44 | Pharmacy Report ---
Pharmacy PK ABX Note - Date of Service January 20, 2024 - Assessment and Plan Assessment 01/19 SCr downtrending, 0.81 mg/dL today. AUC 24,48 estimating low 400s-, although patient improving, will increase dose today to ensure therapeutic. E. faecalis ervin-sensitive,vanc ARDEN reported as 2. Albino WHALEN has been consulted, will wait for their recommendations. Will keep random level tomorrow AM to assist with dosing 01/18 83 year old M receiving vancomycin + ceftriaxone for treatment of urinary tract infection. * Day #1 of Vancomycin and Ceftriaxone (Day #3 total abx) * Afebrile. Leukocytosis improved but still 26.6k. SCr continues to improve, down to 0.90 mg/dL this AM. * Urine culture grew Klebsiella oxytoca which is also in 1 of 4 bottles from blood cultures (R to ampicillin and cefazolin only). Likely will need ceftriaxone for 7-14 days for gram negative bacteremia. Today, enterococcus faecalis grew in urine culture as well, awaiting sensitivities. Starting vanc to cover this. Plan Vancomycin * Loading dose: 1750 mg IV x 1 * Maintenance dose: 750 mg IV every 12 hours * Regimen is predicted to achieve target AUC/ARDEN between 400-600 (567ss; 506,24- 48). * Will order a trough level for 01/21/24 Pharmacy will continue to follow and will adjust dose/frequency as necessary. Thank you. Pharmacy has transitioned to AUC monitoring for vancomycin. AUC/ARDEN is the preferred PK/PD target and is associated with decreased risk of nephrotoxicity compared to traditional trough targets.
[2024-01-20] MEDS: AMPICILLIN/SULBACTAM SOD 3,000 MG/100 ML BAG IV SCH (17:47)
[2024-01-20] MEDS ORDERED: VANCOMYCIN HCL 1,000 MG/270 ML BAG IV SCH (22:00)
[2024-01-21 04:50] LABS: Hematocrit (blood only) 25.7 % (42.0-52.0); Hemoglobin 8.6 g/dl (14.0-18.0); Mean Corpuscular Hemoglobin 28.1 pg (25.0-34.0); Mean Corpuscular Hgb Conc 33.5 g/dL (32.0-36.0); Mean Platelet Volume 9.7 fL (9.4-12.4); Platelet Count 185 K/uL (130-400); RDW Coefficient of Variation 15.6 % (11.5-14.5); RDW Standard Deviation 47.8 fL (36.4-46.3); Red Blood Count 3.06 M/uL (4.70-6.10); White Blood Count 9.53 K/ul (4.8-10.8)
[2024-01-21 05:04] LABS: BUN Creatinine Ratio 26.1 (10-20); Creatinine Clr Calc Pharmacy 87.5 ml/min; Magnesium 1.9 mg/dl (1.7-2.4); Phosphorus 3.4 mg/dl (2.5-4.9); Potassium 4.2 mmol/L (3.5-5.1)
--- NOTE | 2024-01-21 08:12 | Hospitalist Progress Note ---
Date of Service January 21, 2024 Assessment & Plan (1) Septic shock: (2) Emphysematous cystitis: (3) Acute blood loss anemia: (4) CAD (coronary artery disease): (5) S/P coronary angioplasty: (6) Severe aortic stenosis: (7) Hyperglycemia due to type 2 diabetes mellitus: Plan This is an 83-year-old male who has a significant past medical history of CAD, chronic HFrEF with EF of 15% and current LifeVest in place, LBBB, aortic valve stenosis, HTN, HLD, T2DM and history of tobacco abuse who presents to ED secondary to gross hematuria. Pt recently hospitalized at [facility] 01/07-01/15 2/2 severe CAD, ischemic [employer] and severe . S/P PCI x 6. EF post PCI was 30%, life vest placed, moderate to severe Hospital course complicated with ABL 2/2 Gross hematuria with mejia catheter requiring CBI, Hgb at d/c was 7.8. Discharged on GDMT with entreso, aldactone, metoprolol, jardiance, asa, plavix, statin and amiodarone due to vfib arrest Presents back to ED now secondary to gross hematuria around cath site, EMS found pt lethargic, SBP 90s. Received total of 1L of IVF in ED along with current ongoing infusion of 125cc/hr. Started on empiric Vanco and cefepime. Blood and urine cultures obtained, Lactic acidosis climbing on admission to 8.0, hgb down to 6.8. --CT abd pelvis:Mejia catheter is noted within a markedly distended urinary bladder which contains a large air-fluid level with intraluminal dependent debris/hemorrhage. Additionally, there is extensive air within the bladder wall suggestive of emphysematous cystitis with air extending into the adjacent pelvic veins, femoral veins, IVC and splenic vein.2. Small amount of portal venous gas within the left hepatic lobe. No definite pneumatosis or pneumoperitoneum.3. No bowel obstruction or bowel wall thickening.4. Bilateral mild to moderate hydroureteronephrosis secondary to the urinary bladder distention.5. Asymmetric deep tissue edema within the right proximal thigh may be on a post procedural bases. No large discrete hematoma identified. Septic Shock and cardiogenic shock Emphysematous cystitis Klebsiella bacteremia Klebsiella , Enterococcus UTI admitted to ICU (Dr. Rodrigues) [place] [facility] [place], transfer initiated by ED Dr. Mooney, however now denied as he is improving Consulted urology - Mejia now draining well, recommend to keep for ~ 2 weeks, cont. abx treatment Consulted cardiology - continue dual antiplatelet therapy (given recent stents), transfuse prn, hold entresto, spironolactone Continued IV cefepime initially -> switched to vancomycin + ceftriaxone in ICU WBC increased from 18K to 36K --> now down to 26K -> 16K ->9.5K ID consulted - IV Unasyn, then Levaquin on DC to complete of total of 2 weeks of abx Norepi infusion, goal MAP 65. Now off pressors transfused given hgb 6.8 and active bleeding (but bleeding improved), current Hgb 8.6 lactic acid improved monitor H&H, BMP CAD Severe Ischemic [employer]ENT EF 30% life vest in place/HFrEF s/p Vfib arrest Hx of HTN/HLD prescribed asa, plavix, statin, metoprolol, jardiance, entresto, aldactone, amiodarone s/p Cardiac Cath with PCI x 6, refer to HPI for cath summary Cardiology consulted, as above T2DM with hyperglycemia recent a1c 7.1, hold metformin, jardiance insulin gtt ordered Acute blood loss anemia 2/2 gross hematuria urology consulted s/p 2 units of pRBCs current Hgb 8.6 (stable), cont to monitor H&H ELIGIO - resolved baseline cr 1.0, bun/cr 48 and 1.66 ? post obstructive in setting of bladder hemorrhage vs ATN in setting of hypovolemia/shock seen by urology, catheter now draining well Cr improved now to 0.7 DVT ppx: SCDS given acute bleeding FULL CODE as discussed with at bedside PCP: Dr. Flores Dispo: PCU Admission and Anticipated Discharge Date Admission Date: January 17, 2024 Subjective Pt seen in follow up Admitted to ICU d/t shock and pressor requirement Positive for Klebsiella in urine and blood Enterococcus faecalis in urine as well + hematuria - improved, + Mejia [place] [facility] [place] JULIET x6, on DOAC, low EF, Hx of [id number] cardiac arrest, for which he was transferred [place] [facility] [place] Currently laying in bed in NAD, much more awake and feeling better denies any chest pain, palpitations, shortness of breath, abd. pain, n/v Off pressors WBC normalized now to 9.5K Diet advanced, PT/OT Review of Systems Review of Systems: All systems reviewed & are unremarkable except as noted in Subjective Physical Exam Physical Exam: Constitutional: +chronically ill appearing elderly M in NAD on RA Eyes: PERRL, conjunctiva e normal, anicteri c sclerae ENMT: external ear and n ose normal Neck: supple Respiratory: no respiratory dis tress and no labor ed breathing Cardiovascular: regular rate and r egular rhythm Hea rt Sounds: + syst. murmur , no LE ed karma Gastrointestinal ( Abdomen): normal bowel sound s, soft, nontender +Mejia (hematuria ) Musculoskeletal: Head/Neck/Chest: h ead atraumatic Results & Data Results & Data Vital Signs (Past 12 Hours) Vital Signs Pulse Resp BP Pulse Ox 01/21/24 02:00 109/53 L 01/21/24 02:00 109/53 L 01/21/24 02:00 109/53 L 01/21/24 02:00 109/53 L 01/21/24 02:00 74 16 96 01/21/24 01:06 72 20 97 01/21/24 00:00 76 18 96 01/21/24 00:00 86/45 L 01/21/24 00:00 86/45 L 01/20/24 23:00 78 20 95 01/20/24 22:06 75 17 96 01/20/24 21:06 80 20 97 01/20/24 20:15 84 21 97 Laboratory Results 01/21/24 01/20/24 01/20/24 Range/Units 04:30 20:51 16:29 WBC 9.53 (4.8-10.8) K/ul RBC 3.06 L (4.70-6.10) M/uL Hgb 8.6 L (14.0-18.0) g/dl Hct 25.7 L (42.0-52.0) % MCV 84.0 (80.0-100.0) fL MCH 28.1 (25.0-34.0) pg MCHC 33.5 (32.0-36.0) g/dL RDW Std Deviation 47.8 H (36.4-46.3) fL RDW Coeff of Erendira 15.6 H (11.5-14.5) % Plt Count 185 (130-400) K/uL MPV 9.7 (9.4-12.4) fL Sodium 134 L (136-145) mmol/L Potassium 4.2 (3.5-5.1) mmol/L Chloride 106 (98-107) mmol/L Carbon Dioxide 21 (21-32) mmol/L Anion Gap 7 (3-11) BUN 18 (6-23) mg/dl Creatinine 0.69 (0.6-1.4) mg/dl Est Cr Clr Drug Dosing 87.5 ml/min eGFR 91.25 BUN/Creatinine Ratio 26.1 H (10-20) Glucose 137 H (70-99(Fasting)) mg/dl POC Glucose 209 H 199 H (70-99) mg/dl Calcium 8.0 L (8.6-10.3) mg/dl Phosphorus 3.4 (2.5-4.9) mg/dl Magnesium 1.9 (1.7-2.4) mg/dl 01/20/24 Range/Units 11:03 WBC (4.8-10.8) K/ul RBC (4.70-6.10) M/uL Hgb (14.0-18.0) g/dl Hct (42.0-52.0) % MCV (80.0-100.0) fL MCH (25.0-34.0) pg MCHC (32.0-36.0) g/dL RDW Std Deviation (36.4-46.3) fL RDW Coeff of Erendira (11.5-14.5) % Plt Count (130-400) K/uL MPV (9.4-12.4) fL Sodium (136-145) mmol/L Potassium (3.5-5.1) mmol/L Chloride (98-107) mmol/L Carbon Dioxide (21-32) mmol/L Anion Gap (3-11) BUN (6-23) mg/dl Creatinine (0.6-1.4) mg/dl Est Cr Clr Drug Dosing ml/min eGFR BUN/Creatinine Ratio (10-20) Glucose (70-99(Fasting)) mg/dl POC Glucose 199 H (70-99) mg/dl Calcium (8.6-10.3) mg/dl Phosphorus (2.5-4.9) mg/dl Magnesium (1.7-2.4) mg/dl Medications Administered Current Inpatient Medications Amiodarone HCl (Amiodarone 200 Mg Tab) 200 mg PO DAILY [facility] Stop: 02/18/24 08:59 Last Admin: 01/20/24 08:51 Dose: 200 mg Ascorbic Acid (Ascorbic Acid 500 Mg Tab) 125 mg PO DAILY [facility] Stop: 02/18/24 08:59 Last Admin: 01/20/24 08:51 Dose: 125 mg Aspirin (Aspirin 81 Mg Ectab) [facility] [place] [facility] Stop: 02/17/24 11:14 Last Admin: 01/20/24 08:52 Dose: 81 mg Atorvastatin Calcium (Atorvastatin 40 Mg Tab) 40 mg PO [facility] Stop: 02/17/24 08:59 Last Admin: 01/20/24 08:52 Dose: 40 mg Clopidogrel Bisulfate (Clopidogrel Bisulfate 75 Mg Tab) 75 mg PO [facility] Stop: 02/17/24 11:14 Last Admin: 01/20/24 08:51 Dose: 75 mg Cyanocobalamin (Cyanocobalamin (B-12) 100 Mcg Tablet) 100 mcg PO DAILY [facility] Stop: 02/18/24 08:59 Last Admin: 01/20/24 08:51 Dose: 100 mcg Dextrose (Dextrose 50% 50 Ml Syringe) 25 - 50 ml IV UD PRN; Protocol PRN Reason: Hypoglycemia Protocol Stop: 02/16/24 12:44 Glucagon (Glucagon For Inj 1 Mg Vial) 1 mg SQ UD PRN; Protocol PRN Reason: Hypoglycemia Protocol Stop: 02/16/24 12:44 Glucose (Glucose 40% Gel 15 Gm Tube) 15 - 30 gm PO UD PRN; Protocol PRN Reason: Hypoglycemia Protocol Stop: 02/16/24 12:44 Glucose (Glucose 10 Tab/Tube) 4 - 8 tab PO UD PRN; Protocol PRN Reason: Hypoglycemia Protocol Stop: 02/16/24 12:44 Heparin Sodium (Beef Lung) (Heparin 10 Unit/Ml 5 Ml Flush) 5 ml FLUSH PRN PRN PRN Reason: Flush Stop: 02/18/24 08:13 Ampicillin Sodium/Sulbactam Sodium (Unasyn) 3,000 mg in 100 mls @ 200 mls/hr IV Q6H [facility]; Protocol Stop: 02/03/24 17:59 Last Admin: 01/21/24 06:18 Dose: 200 mls/hr Insulin Aspart (Insulin Aspart Per Unit Charge) 0 units SC ACHS [facility] Stop: 02/17/24 11:59 Last Admin: 01/21/24 08:10 Dose: Not Given Miscellaneous (Carbohydrates For Hypoglycemia ) 15 - 30 gm PO UD PRN PRN Reason: Hypoglycemia Treatment Stop: 02/16/24 12:44
--- NOTE | 2024-01-21 10:18 | Cardiology Progress Note ---
Date of Service January 21, 2024 Assessment & Plan (1) Sepsis: (2) Complicated urinary tract infection: (3) Severe aortic stenosis: (4) S/P coronary angioplasty: Plan * Klebsiella / Enterococcus Faecalis on urine culture and Klebsiella onone blood culture * Hematuria * Need for dual antiplatelet therapy due to recent multivessel PCI in setting of recent survived VF arrest , severe , new severe LV dysfunction. * Continue oral amiodarone * Entresto remains on hold. * SCDs for DVT prophylaxis. Admission and Anticipated Discharge Date Admission Date: January 17, 2024 Subjective Patient seen in cardiology follow up. Denies acute complaint. Telemetry reveals SR in the 80s with chronic left bundle branch block. Physical Exam Constitutional: WD/WN, vitals as above Cardiovascular: Rate/Rhythm: regular rate Heart Sounds: + murmur (2/6 SM ) Vessels: no JVD Extremities: no edema Gastrointestinal (Abdomen): normal bowel sounds, soft, nontender, no hepatosplenomegaly Neurologic: PERRL, EOMI, accommodation nl, no face palsy, no dysarthria Genitourinary: Celeste catheter in place, moderate ongoing hematuria. Results & Data Vital Signs (Past 12 Hours) Vital Signs Temp Pulse Resp BP Pulse Ox 01/21/24 08:09 84 23 96 01/21/24 08:00 123/62 01/21/24 08:00 36.5 C 01/21/24 07:54 84 21 97 01/21/24 07:15 75 18 97 01/21/24 02:00 109/53 L 01/21/24 02:00 109/53 L 01/21/24 02:00 109/53 L 01/21/24 02:00 109/53 L 01/21/24 02:00 74 16 96 01/21/24 01:06 72 20 97 01/21/24 00:00 76 18 96 01/21/24 00:00 86/45 L 01/21/24 00:00 86/45 L 01/20/24 23:00 78 20 95 Laboratory Results CBC 01/21/24 Range/Units 04:30 WBC 9.53 (4.8-10.8) K/ul RBC 3.06 L (4.70-6.10) M/uL Hgb 8.6 L (14.0-18.0) g/dl Hct 25.7 L (42.0-52.0) % Plt Count 185 (130-400) K/uL Comprehensive Metabolic Panel 01/21/24 Range/Units 04:30 Sodium 134 L (136-145) mmol/L Potassium 4.2 (3.5-5.1) mmol/L Chloride 106 (98-107) mmol/L Carbon Dioxide 21 (21-32) mmol/L BUN 18 (6-23) mg/dl Creatinine 0.69 (0.6-1.4) mg/dl Glucose 137 H (70-99(Fasting)) mg/dl Calcium 8.0 L (8.6-10.3) mg/dl Intake and Output 01/20/24 01/21/24 01/21/24 22:59 06:59 14:59 Intake Total 220 / 755 220 / 755 Output Total 525 / 1100 50 / 1100 Balance -305 / -345 170 / -345 Intake: IV 100 / 515 100 / 515 Ampicillin/Sulbactam Sod 3,000 100 / 200 100 / 200 mg In 100 ml @ 200 mls/hr IV Q6H [facility] Rx#:[id number] Oral 120 / 240 120 / 240 Output: Urine Amount (Catheter) 525 / 1100 50 / 1100 3-way Urethral 125 / 650 Celeste/Indwelling 400 / 450 50 / 450 Other: Weight 83.9 kg Weight Measurement Method Built in [facility]
[2024-01-21] MEDS: MELATONIN 3 MG TAB PO PRN (20:36)
[2024-01-22 08:12] LABS: Basophils # (auto) 0.03 K/uL (0.00-0.20); Basophils % (auto) 0.4 %; Eosinophils # (auto) 0.19 K/uL (0.00-0.50); Eosinophils % (auto) 2.3 %; Hematocrit (blood only) 30.1 % (42.0-52.0); Hemoglobin 9.8 g/dl (14.0-18.0); Immature Granulocytes % (auto) 1.2 %; Lymphocytes % (auto) 11.9 %; Mean Corpuscular Hemoglobin 27.6 pg (25.0-34.0); Mean Corpuscular Hgb Conc 32.6 g/dL (32.0-36.0); Mean Corpuscular Volume 84.8 fL (80.0-100.0); Mean Platelet Volume 9.8 fL (9.4-12.4); Monocytes # (auto) 0.78 K/uL (0.11-0.59); Monocytes % (auto) 9.3 %; Neutrophils % (auto) 74.9 %; Platelet Count 217 K/uL (130-400); RDW Coefficient of Variation 15.3 % (11.5-14.5); RDW Standard Deviation 46.5 fL (36.4-46.3); Red Blood Count 3.55 M/uL (4.70-6.10)
[2024-01-22 08:33] LABS: BUN Creatinine Ratio 21.7 (10-20); Calcium 8.2 mg/dl (8.6-10.3); Creatinine Clr Calc Pharmacy 100.6 ml/min; Magnesium 1.9 mg/dl (1.7-2.4); Phosphorus 3.3 mg/dl (2.5-4.9); Potassium 4.4 mmol/L (3.5-5.1)
--- NOTE | 2024-01-22 11:42 | Cardiology Progress Note ---
Date of Service January 22, 2024 Assessment & Plan (1) Sepsis: (2) Complicated urinary tract infection: (3) Severe aortic stenosis: (4) S/P coronary angioplasty: Plan * Klebsiella / Enterococcus Faecalis on urine culture and Klebsiella one blood culture. Repeat cultures negative thus far. * Hematuria * Need for dual antiplatelet therapy due to recent multivessel PCI in setting of recent survived VF arrest , severe , new severe LV dysfunction. * Continue oral amiodarone * Entresto remains on hold. * Reassess LVEF on 01/23/24 with limited echo * SCDs for DVT prophylaxis. Admission and Anticipated Discharge Date Admission Date: January 17, 2024 Subjective Patient seen in room 216 today having been transferred out of the ICU yesterday afternoon. Patient feeling well.No chest pain or shortness of breath. BP stable. Still with mild hematuria in catheter. Telemetry reveals SR in the 90s . Physical Exam Constitutional: WD/WN, vitals as above Cardiovascular: Rate/Rhythm: regular rate Heart Sounds: + murmur (2/6 SM ) Vessels: no JVD Extremities: no edema Gastrointestinal (Abdomen): normal bowel sounds, soft, nontender, no hepatosplenomegaly Neurologic: PERRL, EOMI, accommodation nl, no face palsy, no dysarthria Results & Data Vital Signs (Past 12 Hours) Vital Signs Temp Pulse Pulse Resp BP Pulse Ox O2 Del Method 01/22/24 11:17 36.7 C 88 18 110/70 97 Room Air 01/22/24 09:09 Room Air 01/22/24 07:24 79 01/22/24 07:23 36.9 C 86 18 130/74 98 Room Air 01/22/24 02:59 36.6 C 79 21 125/67 97 Room Air Laboratory Results CBC 01/22/24 Range/Units 07:40 WBC 8.40 (4.8-10.8) K/ul RBC 3.55 L (4.70-6.10) M/uL Hgb 9.8 L (14.0-18.0) g/dl Hct 30.1 L (42.0-52.0) % Plt Count 217 (130-400) K/uL Neut # (Auto) 6.30 (1.40-6.50) K/uL Lymph # (Auto) 1.00 L (1.20-3.40) K/uL [place] # (Auto) 0.78 H (0.11-0.59) K/uL Eos # (Auto) 0.19 (0.00-0.50) K/uL Baso # (Auto) 0.03 (0.00-0.20) K/uL Comprehensive Metabolic Panel 01/22/24 Range/Units 07:40 Sodium 137 (136-145) mmol/L Potassium 4.4 (3.5-5.1) mmol/L Chloride 106 (98-107) mmol/L Carbon Dioxide 24 (21-32) mmol/L BUN 13 (6-23) mg/dl Creatinine 0.60 (0.6-1.4) mg/dl Glucose 145 H (70-99(Fasting)) mg/dl Calcium 8.2 L (8.6-10.3) mg/dl Intake and Output 01/21/24 01/22/24 01/22/24 22:59 06:59 14:59 Intake Total 200 / 925 200 / 925 Output Total 650 / 1176 Balance 200 / -251 -450 / -251 Intake: IV 200 / 500 200 / 500 Ampicillin/Sulbactam Sod 3,000 200 / 500 200 / 500 mg In 100 ml @ 200 mls/hr IV Q6H [facility] Rx#:[id number] Output: Urine Amount (Catheter) 650 / 1175 3-way Urethral 650 / 650 Other: Weight 83.9 kg 86.1 kg Weight Measurement Method Built in [facility] Built in [facility]
--- NOTE | 2024-01-22 15:32 | Hospitalist Progress Note ---
Date of Service January 22, 2024 Assessment & Plan (1) Septic shock: (2) Emphysematous cystitis: (3) Acute blood loss anemia: (4) CAD (coronary artery disease): (5) S/P coronary angioplasty: (6) Severe aortic stenosis: (7) Hyperglycemia due to type 2 diabetes mellitus: Plan This is an 83-year-old male who has a significant past medical history of CAD, chronic HFrEF with EF of 15% and current LifeVest in place, LBBB, aortic valve stenosis, HTN, HLD, T2DM and history of tobacco abuse who presents to ED secondary to gross hematuria. 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 S/P PCI x 6. EF post PCI was 30%, life vest placed, moderate to severe Hospital course complicated with ABL 2/2 Gross hematuria with mejia catheter requiring CBI, Hgb at d/c was 7.8. Discharged on GDMT with entreso, aldactone, metoprolol, jardiance, asa, plavix, statin and amiodarone due to vfib arrest Presents back to ED now secondary to gross hematuria around cath site, EMS found pt lethargic, SBP 90s. Received total of 1L of IVF in ED along with current ongoing infusion of 125cc/hr. Started on empiric Vanco and cefepime. Blood and urine cultures obtained, Lactic acidosis climbing on admission to 8.0, hgb down to 6.8. --CT abd pelvis:Mejia catheter is noted within a markedly distended urinary bladder which contains a large air-fluid level with intraluminal dependent debris/hemorrhage. Additionally, there is extensive air within the bladder wall suggestive of emphysematous cystitis with air extending into the adjacent pelvic veins, femoral veins, IVC and splenic vein.2. Small amount of portal venous gas within the left hepatic lobe. No definite pneumatosis or pneumoperitoneum.3. No bowel obstruction or bowel wall thickening.4. Bilateral mild to moderate hydroureteronephrosis secondary to the urinary bladder distention.5. Asymmetric deep tissue edema within the right proximal thigh may be on a post procedural bases. No large discrete hematoma identified. Per previous provider with addendum: Septic Shock and cardiogenic shock Emphysematous cystitis Klebsiella bacteremia Klebsiella , Enterococcus UTI Pt with initial admission to the ICU on arrival with sepsis and shock requiring pressor support initially plan was to transfer to [facility] when bed available, and transfer was initiated by ED physician Dr. Mooney. However transfer was later denied as he is improving UA was suggestive of infection, urine Cx grew Enterococcus and Klebsiella Blood Cx x 1/4 bottles grew Klebsiella Was treated with IV Rocephin and Vancomycin initially Infectious Disease was consulted, recommended/stated the following: "-Discontinue IV ceftriaxone and IV vancomycin and start on IV Unasyn. -Please continue on IV Unasyn while inpatient and discharged on oral Levaquin 750 mg once daily to complete a course of 2 weeks including inpatient appropriate antibiotics." Consulted urology, recommended/stated the following: -Mejia now draining well, recommend to keep for ~ 2 weeks, cont. 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 EF 30% life vest in place/HFrEF s/p Vfib arrest Hx of HTN/HLD prescribed asa, plavix, statin, metoprolol, jardiance, entresto, aldactone, amiodarone s/p Cardiac Cath with PCI x 6, refer to HPI for cath summary Cardiology consulted, as above -entresto and spironolactone currently on hold as well as jardiance T2DM with hyperglycemia recent a1c 7.1, hold metformin, jardiance Currently on ISS Acute blood loss anemia 2/2 gross hematuria Pt with gross hematuria on admission Hgb of 6.8 on admission s/p transfusion of 2 units of pRBCs on 01/16 current Hgb 8.6 (stable), cont to monitor H&H urology consulted for noted hematuria, noted/stated the following: -"Nursing can hand irrigate catheter as necessary however hematuria is markedly improved...Urology to follow peripherally, can contact urology prior to discharge to schedule appropriate follow-up for catheter and possible repeat imaging. Given how significant his infection was, would recommend catheter for at least a total of 2 weeks" Continue to monitor Hgb and hematuria as needed ELIGIO - resolved baseline cr 1.0, bun/cr 48 and 1.66 ? post obstructive in setting of bladder hemorrhage vs ATN in setting of hypovolemia/shock seen by urology, catheter now draining well Cr improved now to 0.7 Continue other home meds as ordered Diet: HH/DMII DVT ppx: SCDS given acute bleeding FULL CODE as discussed with at bedside PCP: Dr. Flores Dispo: PT recommending acute rehab, pt agreeable Admission and Anticipated Discharge Date Admission Date: January 17, 2024 Review of Systems Review of Systems: All systems reviewed & are unremarkable except as noted in Subjective Physical Exam Physical Exam: General: Alert, oriented. No acute distress Psych: Appropriate mood and affect Neuro: difficulty with movements in the bed HEENT: NC/AT CV: RRR, +murmur Resp: Breath sounds clear bilaterally, no increased effort of breathing Abdomen:Soft, nontender Results & Data Results & Data Vital Signs (Past 12 Hours) Vital Signs Temp Pulse Pulse Resp BP Pulse Ox O2 Del Method 01/22/24 14:39 91 H 01/22/24 11:17 36.7 C 88 18 110/70 97 Room Air 01/22/24 09:09 Room Air 01/22/24 07:24 79 01/22/24 07:23 36.9 C 86 18 130/74 98 Room Air Diagnostic Findings Chest X-Ray 01/17/24 08:31 XR chest 1V portable HISTORY: 83 years-old Male Chest pain, nonspecific COMPARISON: 01/08/2024 TECHNIQUE: AP view of the chest FINDINGS: Cardiac silhouette is enlarged. No pneumothorax. Trace pleural effusions. Pulmonary vascular congestion. Numerous leads project over the chest. Bones appear grossly intact. IMPRESSION: 1. Cardiomegaly with pulmonary vascular congestion. 2. Trace pleural effusions. ACT 112: Negative or not required by law. The above report was generated using voice recognition software. It may contain grammatical, syntax or spelling errors. Electronically signed by: Murali Echeverira M.D. 01/17/2024 9:00 AM Abdomen/Pelvis CT 01/17/24 08:[address] WITH IV CONTRAST CT DOSE: 2901.2 mGy.cm HISTORY: Acutely unresponsive. Acute hypotension status post recent catheterization. hypotension TECHNIQUE: Multiaxial CT images of the abdomen and pelvis were performed following the IV administration of 120 cc of Optiray, A dose lowering technique was utilized adhering to the principles of ALARA. COMPARISON STUDY: CT chest of same day, CT abdomen and pelvis 01/07/2024 FINDINGS: Unchanged appearance of the nondisplaced bilateral anterior rib fractures which appear acute. No acute displaced fracture. Chest CT is dictated separately. Cardiomegaly with extensive coronary artery calcifications. No pneumatosis or pneumoperitoneum. There is a considerable amount of air noted within the bilateral femoral veins which also extends into the IVC and splenic vein. Linear branching lucencies are also noted within the left hepatic lobe adjacent to the falciform ligament on image 89 series 9 suggestive of portal venous gas. Unremarkable spleen, pancreas and adrenal glands. Cholelithiasis without CT evidence of acute cholecystitis. Hepatic steatosis. There is patency of the hepatic and portal veins. Symmetric mild to moderate bilateral hydroureteronephrosis with perinephric and perirenal stranding. No renal or ureteral calculi. The urinary bladder is distended measuring up to 20 cm and contains a large air-fluid level. Complex debris/hemorrhage layers within the bladder lumen. There is extensive air within the urinary bladder lumen which also involves adjacent pelvic veins. A Mejia catheter is present which appears be in satisfactory positioning. Enlarged prostate. Atherosclerosis of the aorta with infrarenal ectasia measuring 2.7 cm. There is asymmetric stranding/deep tissue edema within the right upper thigh. No discrete hematoma identified. Mild distal esophageal wall thickening. There is no bowel obstruction or bowel wall thickening. No acute fracture. Calcification suggestive of a sequestered fragment noted within the central canal on image 252 series 9 at the level of L5-S1. IMPRESSION: 1. Mejia catheter is noted within a markedly distended urinary bladder which contains a large air-fluid level with intraluminal dependent debris/hemorrhage. Additionally, there is extensive air within the bladder wall suggestive of em physematous cystitis with air extending into the adjacent pelvic veins, femoral veins, IVC and splenic vein. 2. Small amount of portal venous gas within the left hepatic lobe. No definite pneumatosis or pneumoperitoneum. 3. No bowel obstruction or bowel wall thickening. 4. Bilateral mild to moderate hydroureteronephrosis secondary to the urinary bladder distention. 5. Asymmetric deep tissue edema within the right proximal thigh may be on a post procedural bases. No large discrete hematoma identified. 6. Cholelithiasis. 7. Unchanged appearance of the acute bilateral anterior rib fractures which are nondisplaced. These may be secondary to prior chest compressions. 8. Additional findings as above. ACT 112: Negative or not required by law. The above report was generated using voice recognition software. It may contain grammatical, syntax or spelling errors. Electronically signed by: Murali Echeverria M.D. 01/17/2024 9:32 AM Chest CTA 01/17/24 08:38 CT angio chest PE protocol HISTORY: 83 years-old Male with hypotension, s/p cath. Acute hypotension with unresponsiveness status post recent catheterization procedure TECHNIQUE: Multiple CTA images of the chest were obtained after the intravenous administration of 120 ml Optiray. Coronal and sagittal MIPS were obtained from the axial data set and were submitted for review. All measurements were obtained according to NASCET criteria. A dose lowering technique was utilized adhering to the principles of ALARA. COMPARISON: CT abdomen and pelvis of same day, CTA chest 01/07/2024 FINDINGS: CTA: Moderate cardiomegaly. There is no pericardial effusion. Extensive coronary artery calcifications. Atherosclerosis of the thoracic aorta without aneurysm or dissection. Pulmonary artery is dilated up to 3.3 cm suggestive of pulmonary arterial hypertension. No pulmonary emboli identified. CT CHEST: No dominant thyroid nodule. Borderline enlarged mediastinal lymph nodes measuring up to 10 mm of slightly increased in size from prior. No pneumothorax, pleural effusion or lobar airspace consolidation. No overt pulmonary edema. Mild dependent subsegmental bibasilar atelectasis. Central airways are patent. Linear branching lucencies are noted within the left hepatic lobe on image [address] abdomen and pelvis is dictated separately. Mild distal esophageal wall thickening. Unchanged nondisplaced bilateral anterior rib fractures compared to the prior study. IMPRESSION: 1. Cardiomegaly with evidence of pulmonary arterial hypertension and extensive coronary artery calcifications. 2. No pulmonary emboli. 3. No pleural effusion or airspace consolidation typical for pneumonia. 4. Mild nonspecific borderline enlarged mediastinal lymph nodes. 5. Please refer to the same day CT abdomen and pelvis study for additional findings. ACT 112: Negative or not required by law. The above report was generated using voice recognition software. It may contain grammatical, syntax or spelling errors. Electronically signed by: Murali Echeverria M.D. 01/17/2024 9:[address] 01/17/24 08:38 CT OF THE HEAD WITHOUT CONTRAST CLINICAL HISTORY: Altered mental status. COMPARISON STUDY: Head CT January 07, 2024. TECHNIQUE: Helical axial images of the head were obtained without IV contrast. Automated exposure control was utilized for the study. A dose lowering technique was utilized adhering to the principles of ALARA. FINDINGS: No acute intracranial hemorrhage, midline shift or mass effect is present. The ventricular system is stable. White matter hypodensities are unchanged and favor small vessel disease. The basal cisterns are patent. No extra-axial collections are present. There are no findings to suggest acute dural sinus thrombosis or acute territorial infarct. No significant calvarial abnormalities are present. Visualized portions of the sinuses and mastoid air cells are clear. IMPRESSION: No acute intracranial findings. No change in appearance of the brain. ACT 112: Negative or not required by law. Electronically signed by: Miko Carolina M.D. 01/17/2024 9:04 AM Chest X-Ray 01/17/24 18:15 EXAM: Radiograph of the Chest 1 View INDICATION: Right internal jugular line placement. TECHNIQUE: Frontal view of the chest. COMPARISON: No relevant prior studies available. FINDINGS: Lungs and pleural spaces: Stable congested pulmonary vascularity and probable chronic airway thickening in the left base. No confluent consolidation or pulmonary edema. No pleural effusion or pneumothorax. Heart: Stable large cardiac shadow. Mediastinum: Normal contour. Bones/joints: No fracture, erosion or dislocation. Soft tissues: No abnormality noted. Tubes, lines and devices: Right internal jugular catheter terminates at the cavoatrial junction. Previous endotracheal and nasogastric tubes no longer present. Upper abdomen: No abnormality noted. IMPRESSION: 1. Stable chronic appearing pulmonary vascular congestion. 2. Lines and tubes as above. ACT 112: Negative or not required by law. Electronically signed by Molly Osorio 01-17-2024 6:38 PM
[2024-01-23 06:36] LABS: Basophils # (auto) 0.02 K/uL (0.00-0.20); Basophils % (auto) 0.4 %; Eosinophils # (auto) 0.19 K/uL (0.00-0.50); Eosinophils % (auto) 3.5 %; Hematocrit (blood only) 26.1 % (42.0-52.0); Hemoglobin 8.3 g/dl (14.0-18.0); Immature Granulocytes # (auto) 0.08 K/uL (0.01-0.20); Immature Granulocytes % (auto) 1.5 %; Lymphocytes # (auto) 1.06 K/uL (1.20-3.40); Lymphocytes % (auto) 19.5 %; Mean Corpuscular Hgb Conc 31.8 g/dL (32.0-36.0); Mean Platelet Volume 9.8 fL (9.4-12.4); Monocytes # (auto) 0.74 K/uL (0.11-0.59); Monocytes % (auto) 13.6 %; Neutrophils # (auto) 3.34 K/uL (1.40-6.50); Neutrophils % (auto) 61.5 %; Platelet Count 227 K/uL (130-400); RDW Coefficient of Variation 15.3 % (11.5-14.5); RDW Standard Deviation 46.6 fL (36.4-46.3); Red Blood Count 3.07 M/uL (4.70-6.10); White Blood Count 5.43 K/ul (4.8-10.8)
[2024-01-23 07:05] LABS: BUN Creatinine Ratio 20.3 (10-20); Creatinine Clr Calc Pharmacy 94.3 ml/min; Magnesium 1.7 mg/dl (1.7-2.4); Phosphorus 3.2 mg/dl (2.5-4.9)
[2024-01-23 07:10] VITALS: O2SAT 98
[2024-01-23 10:38] VITALS: RESP 18; TEMP 98.1
--- NOTE | 2024-01-23 10:58 | Discharge Summary ---
Discharge Summary Date of Service January 23, 2024 Principal Dx & Hospital Course #1 = Principal Diagnosis (1) Septic shock: (2) Emphysematous cystitis: (3) Acute blood loss anemia: (4) CAD (coronary artery disease): (5) S/P coronary angioplasty: (6) Severe aortic stenosis: (7) Hyperglycemia due to type 2 diabetes mellitus: Plan This is an 83-year-old male who has a significant past medical history of CAD, chronic HFrEF with EF of 15% and current LifeVest in place, LBBB, aortic valve stenosis, HTN, HLD, T2DM and history of tobacco abuse who presents to ED secondary to gross hematuria. 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 S/P PCI x 6. EF post PCI was 30%, life vest placed, moderate to severe Hospital course complicated with ABL 2/2 Gross hematuria with mejia catheter requiring CBI, Hgb at d/c was 7.8. Discharged on GDMT with entreso, aldactone, metoprolol, jardiance, asa, plavix, statin and amiodarone due to vfib arrest Presents back to ED now secondary to gross hematuria around cath site, EMS found pt lethargic, SBP 90s. Received total of 1L of IVF in ED along with current ongoing infusion of 125cc/hr. Started on empiric Vanco and cefepime. Blood and urine cultures obtained, Lactic acidosis climbing on admission to 8.0, hgb down to 6.8. --CT abd pelvis:Mejia catheter is noted within a markedly distended urinary bladder which contains a large air-fluid level with intraluminal dependent debris/hemorrhage. Additionally, there is extensive air within the bladder wall suggestive of emphysematous cystitis with air extending into the adjacent pelvic veins, femoral veins, IVC and splenic vein.2. Small amount of portal venous gas within the left hepatic lobe. No definite pneumatosis or pneumoperitoneum.3. No bowel obstruction or bowel wall thickening.4. Bilateral mild to moderate hydroureteronephrosis secondary to the urinary bladder distention.5. Asymmetric deep tissue edema within the right proximal thigh may be on a post procedural bases. No large discrete hematoma identified. Per previous provider with addendum: Septic Shock and cardiogenic shock Emphysematous cystitis Klebsiella bacteremia Klebsiella , Enterococcus UTI Pt with initial admission to the ICU on arrival with sepsis and shock requiring pressor support initially plan was to transfer to [facility] when bed available, and transfer was initiated by ED physician Dr. Mooney. However transfer was later denied as he is improving UA was suggestive of infection, urine Cx grew Enterococcus and Klebsiella Blood Cx x / bottles grew Klebsiella Was treated with IV Rocephin and Vancomycin initially Infectious Disease was consulted, recommended/stated the following: "-Discontinue IV ceftriaxone and IV vancomycin and start on IV Unasyn. -Please continue on IV Unasyn while inpatient and discharged on oral Levaquin 750 mg once daily to complete a course of 2 weeks including inpatient appropriate antibiotics." Consulted urology, recommended/stated the following: -Mejia now draining well, recommend to keep for ~ 2 weeks, cont. abx treatme nt Consulted cardiology in the setting of cardiogenic shock - continue dual antiplatelet therapy (given recent stents), transfuse prn, hold entresto, spironolactone Improved and has since been weaned off pressors and downgraded from the ICU Patient was discharged to acute rehab on 01/23/2024 with 8 more days of Levaquin 750 mg to complete a total of 14 days of antibiotic treatment. Mejia catheter was in place with urology recommending that that be continued for at least 2 weeks. Urology also advised that patient will likely need repeat imaging before catheter removal. Please ensure close urology follow-up after discharge. CAD s/p PCI with placement of 6 stents Severe Ischemic Cardiomyopathy EF 15-20% life vest in place/HFrEF s/p Vfib arrest Hx of HTN/HLD prescribed asa, plavix, statin, metoprolol, jardiance, entresto, aldactone, amiodarone s/p Cardiac Cath with PCI x 6, refer to HPI for cath summary Cardiology consulted, as above -entresto, metoprolol and spironolactone currently on hold as well as jardiance - echo repeated by cardiology on 01/23/2024 with noted slight improvement of EF from 15% to 20%. Cardiology recommending continue with LifeVest and continue to hold home spironolactone and Entresto in the setting of lower blood pressures. Resume Jardiance on discharge please ensure close cardiology follow-up after discharge T2DM with hyperglycemia recent a1c 7.1, hold metformin, jardiance Currently on ISS resume metformin and Jardiance on discharge Acute blood loss anemia 2/2 gross hematuria Pt with gross hematuria on admission Hgb of 6.8 on admission s/p transfusion of 2 units of pRBCs on 01/16 current Hgb 8.3 (stable on discharge), cont to monitor H&H urology consulted for noted hematuria, noted/stated the following: -"Nursing can hand irrigate catheter as necessary however hematuria is markedly improved...Urology to follow peripherally, can contact urology prior to discharge to schedule appropriate follow-up for catheter and possible repeat imaging. Given how significant his infection was, would recommend catheter for at least a total of 2 weeks" Continue to monitor Hgb and hematuria as needed please ensure close urology follow-up after discharge for noted hematuria ELIGIO - resolved baseline cr 1.0 Likely post obstructive in setting of bladder hemorrhage vs ATN in setting of hypovolemia/shock seen by urology, catheter now draining well Cr improved to normal. Continue other home meds as ordered Notes For Next Care Provider Patient was discharged to acute rehab on 01/23/2024 with 8 more days of Levaquin 750 mg to complete a total of 14 days of antibiotic treatment. Mejia catheter was in place with urology recommending that that be continued for at least 2 weeks. Urology also advised that patient will likely need repeat imaging before catheter removal. Please ensure close urology follow-up after discharge. echo repeated by cardiology on 01/23/2024 with noted slight improvement of EF from 15% to 20%. Cardiology recommending continue with LifeVest and continue to hold home spironolactone and Entresto in the setting of lower blood pressures. please ensure close urology follow-up after discharge for noted hematuria. Monitor H/H Medication Changes From Visit per cardiology: Hold home metoprolol, spironolactone, Entresto Per infectious disease: Continue with Levaquin 750 mg daily to complete a total of 14 days of antibiotic treatment Admission HPI Per Admitting Provider This is an 83-year-old male who has a significant past medical history of CAD, chronic HFrEF with EF of 30% and current LifeVest in place, LBBB, aortic valve stenosis, HTN, HLD, T2DM and history of tobacco abuse who presents to ED secondary to gross hematuria. Of significance patient was recently hospitalized at [facility] on 01/07 to 01/16/2024. Patient initially presented to [facility] status post ventricular fibrillation cardiac arrest obtaining ROSC after electrical cardioversion and moderate to severe aortic stenosis. He did not recall the initial V-fib arrest. Prior to cardiac arrest was in his usual state of health. Patient's initial TTE showing EF 30 to 35% and diffuse hypokinesis in setting of previously known LBBB. Cardiac catheterization revealed multivessel coronary artery disease. He was deemed a poor candidate for CABG and therefore PCI was pursued resulting in multiple JULIET x 6. EP was also consulted given the V-fib arrest and ultimately recommended follow-up in their clinic after TAVR and repeat echocardiogram to determine if permanent ICD candidacy at that time. He was discharged home on amiodarone and a LifeVest. His hospital course was complicated with gross hematuria for which urology was consulted. He required continuous bladder irrigation and failed trial of void prior to discharge therefore Mejia remained in place at discharge with continued light hematuria. He did have acute blood loss anemia in setting of this. Patient was discharged home yesterday with his . He was in his good good spirits and tolerated the ride home. He remained to have a Mejia catheter intact draining bloody urine. states whenever they got home he had significant amount of blood overflowing around the catheter and was soaking many pads. He also had significant blood loss in the bathroom. Due to symptoms not improving she opted to bring him to ED. Patient also reported abdominal pain. In ED patient was significantly hypertensive. He met criteria for septic shock with or without cardiogenic shock. He was started on nor epi. He received IV Vanco and cefepime. Blood and urine cultures were obtained. History was mostly obtained from at bedside. Summary of cardiac cath: * "Coronary disease - hemodynamically significant * LAD diffusely disease up to 80% * pLCX 70% stenosis * Mid RCA 70% stenosis * Intervention Summary: * LAD lesion treated with 3 overlapping drug-eluting stent (2.5mm x 15mm [place]; 2.25 mm X 22 mm [place]; 2.0 mm X 18 mm [place], prox to distal). * LCX lesion treated with 1 drug-eluting stent (2.0mm x 12mm [place]). * RCA lesion treated with 2 overlapping drug-eluting stent (2.5 mm X 26 mm [place]; 2.5 mm x 26mm [place]). * Final angiographic result with 0% residual stenosis, SUELLEN 3 flow, and no evidence of" Admission Exam Per Admitting Provider Generally: Patient is lethargic, and toxic in appearance Lungs: Decreased breath sounds bilaterally with crackles at bases CV: S1-S2 with systolic murmur, LifeVest in place Abdomen: Bladder is significantly distended. Mejia catheter in place Discharge Exam General: Alert, oriented. No acute distress Psych: Appropriate mood and affect Neuro: difficulty with movements in the bed HEENT: NC/AT CV: RRR, +murmur Resp: Breath sounds clear bilaterally, no increased effort of breathing Abdomen:Soft, nontender Updated Medication List Medication Instructions Recorded Confirmed Type atorvastatin 40 mg tablet 40 mg PO QAM 12/03/18 01/17/24 History cholecalciferol (vitamin D3) 25 1,000 unit PO QAM 12/03/18 01/17/24 History mcg (1,000 unit) capsule empagliflozin 25 mg tablet 25 mg PO QAM 06/29/22 01/17/24 History (Jardiance) ascorbic acid (vitamin C) 125 mg 125 mg PO DAILY 01/07/24 01/17/24 History chewable tablet (Vitamin C) cyanocobalamin (vitamin B-12) 100 100 mcg PO DAILY 01/07/24 01/17/24 History mcg tablet glipizide 5 mg tablet, extended 5 mg PO QAM 01/07/24 01/17/24 History release 24 hr metformin 1,000 mg tablet 1,000 mg PO BID 01/07/24 01/17/24 History aspirin 81 mg chewable tablet 81 mg PO QAM #0 tabs 01/08/24 01/17/24 Rx ([facility] Aspirin) amiodarone 200 mg tablet 200 mg PO DAILY 01/17/24 01/17/24 History clopidogrel 75 mg tablet 75 mg PO DAILY 01/17/24 01/17/24 History metoprolol succinate 25 mg 25 mg PO DAILY 01/17/24 01/17/24 History tablet,extended release 24 hr sacubitril 24 mg-valsartan 26 mg 1 tab PO BID 01/17/24 01/17/24 History tablet (Entresto) spironolactone 25 mg tablet 12.5 mg PO DAILY 01/17/24 01/17/24 History levofloxacin 750 mg tablet 750 mg PO DAILY #8 tabs 01/23/24 Rx Hospital Stay Data Consultations 01/17/24 11:57 Consult Cardiology Routine Consult Urology Routine 01/17/24 12:27 Consult Photoengraving Apprentice Routine 01/20/24 07:10 Consult Infectious Diseases Routine Diagnostic Imagining Performed 01/17/24 08:38 CT abd pelvis IV con only Stat CT angio chest PE protocol Stat CT head/brain wo con Stat 01/17/24 17:44 US point of care ultrasound Urgent Chest X-Ray 01/17/24 08:31 XR chest 1V portable HISTORY: 83 years-old Male Chest pain, nonspecific COMPARISON: 01/08/2024 TECHNIQUE: AP view of the chest FINDINGS: Cardiac silhouette is enlarged. No pneumothorax. Trace pleural effusions. Pulmonary vascular congestion. Numerous leads project over the chest. Bones appear grossly intact. IMPRESSION: 1. Cardiomegaly with pulmonary vascular congestion. 2. Trace pleural effusions. ACT 112: Negative or not required by law. The above report was generated using voice recognition software. It may contain grammatical, syntax or spelling errors. Electronically signed by: Murali Echeverria M.D. 01/17/2024 9:00 AM Abdomen/Pelvis CT 01/17/24 08:[address] WITH IV CONTRAST CT DOSE: 2901.2 mGy.cm HISTORY: Acutely unresponsive. Acute hypotension status post recent catheterization. hypotension TECHNIQUE: Multiaxial CT images of the abdomen and pelvis were performed following the IV administration of 120 cc of Optiray, A dose lowering technique was utilized adhering to the principles of ALARA. COMPARISON STUDY: CT chest of same day, CT abdomen and pelvis 01/07/2024 FINDINGS: Unchanged appearance of the nondisplaced bilateral anterior rib fractures which appear acute. No acute displaced fracture. Chest CT is dictated separately. Cardiomegaly with extensive coronary artery calcifications. No pneumatosis or pneumoperitoneum. There is a considerable amount of air noted within the bilateral femoral veins which also extends into the IVC and splenic vein. Linear branching lucencies are also noted within the left hepatic lobe adjacent to the falciform ligament on image 89 series 9 suggestive of portal venous gas. Unremarkable spleen, pancreas and adrenal glands. Cholelithiasis without CT evidence of acute cholecystitis. Hepatic steatosis. There is patency of the hepatic and portal veins. Symmetric mild to moderate bilateral hydroureteronephrosis with perinephric and perirenal stranding. No renal or ureteral calculi. The urinary bladder is distended measuring up to 20 cm and contains a large air-fluid level. Complex debris/hemorrhage layers within the bladder lumen. There is extensive air within the urinary bladder lumen which also involves adjacent pelvic veins. A Mejia catheter is present which appears be in satisfactory positioning. Enlarged prostate. Atherosclerosis of the aorta with infrarenal ectasia measuring 2.7 cm. There is asymmetric stranding/deep tissue edema within the right upper thigh. No discrete hematoma identified. Mild distal esophageal wall thickening. There is no bowel obstruction or bowel wall thickening. No acute fracture. Calcification suggestive of a sequestered fr agment noted within the central canal on image 252 series 9 at the level of L5- S1. IMPRESSION: 1. Mejia catheter is noted within a markedly distended urinary bladder which contains a large air-fluid level with intraluminal dependent debris/hemorrhage. Additionally, there is extensive air within the bladder wall suggestive of emphysematous cystitis with air extending into the adjacent pelvic veins, femoral veins, IVC and splenic vein. 2. Small amount of portal venous gas within the left hepatic lobe. No definite pneumatosis or pneumoperitoneum. 3. No bowel obstruction or bowel wall thickening. 4. Bilateral mild to moderate hydroureteronephrosis secondary to the urinary bladder distention. 5. Asymmetric deep tissue edema within the right proximal thigh may be on a post procedural bases. No large discrete hematoma identified. 6. Cholelithiasis. 7. Unchanged appearance of the acute bilateral anterior rib fractures which are nondisplaced. These may be secondary to prior chest compressions. 8. Additional findings as above. ACT 112: Negative or not required by law. The above report was generated using voice recognition software. It may contain grammatical, syntax or spelling errors. Electronically signed by: Murali Echeverria M.D. 01/17/2024 9:32 AM Chest CTA 01/17/24 08:38 CT angio chest PE protocol HISTORY: 83 years-old Male with hypotension, s/p cath. Acute hypotension with unresponsiveness status post recent catheterization procedure TECHNIQUE: Multiple CTA images of the chest were obtained after the intravenous administration of 120 ml Optiray. Coronal and sagittal MIPS were obtained from the axial data set and were submitted for review. All measurements were obtained according to NASCET criteria. A dose lowering technique was utilized adhering to the principles of ALARA. COMPARISON: CT abdomen and pelvis of same day, CTA chest 01/07/2024 FINDINGS: CTA: Moderate cardiomegaly. There is no pericardial effusion. Extensive coronary artery calcifications. Atherosclerosis of the thoracic aorta without aneurysm or dissection. Pulmonary artery is dilated up to 3.3 cm suggestive of pulmonary arterial hypertension. No pulmonary emboli identified. CT CHEST: No dominant thyroid nodule. Borderline enlarged mediastinal lymph nodes measuring up to 10 mm of slightly increased in size from prior. No pneumothorax, pleural effusion or lobar airspace consolidation. No overt pulmonary edema. Mild dependent subsegmental bibasilar atelectasis. Central airways are patent. Linear branching lucencies are noted within the left hepatic lobe on image [address] abdomen and pelvis is dictated separately. Mild distal esophageal wall thickening. Unchanged nondisplaced bilateral anterior rib fractures compared to the prior study. IMPRESSION: 1. Cardiomegaly with evidence of pulmonary arterial hypertension and extensive coronary artery calcifications. 2. No pulmonary emboli. 3. No pleural effusion or airspace consolidation typical for pneumonia. 4. Mild nonspecific borderline enlarged mediastinal lymph nodes. 5. Please refer to the same day CT abdomen and pelvis study for additional findings. ACT 112: Negative or not required by law. The above report was generated using voice recognition software. It may contain grammatical, syntax or spelling errors. Electronically signed by: Murali Echeverria M.D. 01/17/2024 9:[address] 01/17/24 08:38 CT OF THE HEAD WITHOUT CONTRAST CLINICAL HISTORY: Altered mental status. COMPARISON STUDY: Head CT January 07, 2024. TECHNIQUE: Helical axial images of the head were obtained without IV contrast. Automated exposure control was utilized for the study. A dose lowering technique was utilized adhering to the principles of ALARA. FINDINGS: No acute intracranial hemorrhage, midline shift or mass effect is present. The ventricular system is stable. White matter hypodensities are unchanged and favor small vessel disease. The basal cisterns are patent. No extra-axial collections are present. There are no findings to suggest acute dural sinus thrombosis or acute territorial infarct. No significant calvarial abnormalities are present. Visualized portions of the sinuses and mastoid air cells are clear. IMPRESSION: No acute intracranial findings. No change in appearance of the brain. ACT 112: Negative or not required by law. Electronically signed by: Miko Carolina M.D. 01/17/2024 9:04 AM Chest X-Ray 01/17/24 18:15 EXAM: Radiograph of the Chest 1 View INDICATION: Right internal jugular line placement. TECHNIQUE: Frontal view of the chest. COMPARISON: No relevant prior studies available. FINDINGS: Lungs and pleural spaces: Stable congested pulmonary vascularity and probable chronic airway thickening in the left base. No confluent consolidation or pulmonary edema. No pleural effusion or pneumothorax. Heart: Stable large cardiac shadow. Mediastinum: Normal contour. Bones/joints: No fracture, erosion or dislocation. Soft tissues: No abnormality noted. Tubes, lines and devices: Right internal jugular catheter terminates at the cavoatrial junction. Previous endotracheal and nasogastric tubes no longer present. Upper abdomen: No abnormality noted. IMPRESSION: 1. Stable chronic appearing pulmonary vascular congestion. 2. Lines and tubes as above. ACT 112: Negative or not required by law. Electronically signed by Molly Osorio 01-17-2024 6:38 PM Discharge Instructions Given to Patient (Per Discharging Provider) Russ, You are admitted and treated for urinary tract infection. You were seen by multiple specialists. You were seen by the infectious disease specialist who recommends discharge with antibiotics to complete 14 days of treatment. We are discharging you with the antibiotic Levaquin to take for an additional 8 days. You were also seen by the urologist who recommends that you continue with your Mejia catheter for at least 2 weeks. You will be followed at [facility] for further evaluation of this as well. Please ensure close follow-up with urology after discharge as well. You were seen by the senior investment manager who recommends that you continue to hold your home metoprolol, Entresto and spironolactone medications at home due to your low blood pressure. They recommend that you continue using your LifeVest. Please keep close follow-up with cardiology after discharge. Please keep close follow up with your primary care provider as well after discharge. Please do not hesitate to come back to the emergency room if your symptoms worsen or return. It was a pleasure taking care of you while you were here. Total Time Total Time Spent Total Time Spent (In Minutes): 60
--- NOTE | 2024-01-23 12:49 | Cardiology Progress Note ---
Date of Service January 23, 2024 Assessment & Plan (1) Sepsis: (2) Complicated urinary tract infection: (3) Severe aortic stenosis: (4) S/P coronary angioplasty: Plan * Klebsiella / Enterococcus Faecalis on urine culture and Klebsiella one blood culture. Repeat cultures negative thus far. * Hematuria * Need for dual antiplatelet therapy due to recent multivessel PCI in setting of recent survived VF arrest , severe , new severe LV dysfunction. * Continue oral amiodarone 200 mg daily. * Entresto and spironolactone remain on hold due to low blood pressure. * Limited echocardiogram performed for reassessment of LVEF, ongoing severe left ventricular systolic dysfunction noted, EF 20%. Patient does not have severe aortic stenosis and this was not reassessed. * Patient stable for transfer to rehab. Cardiology follow-up as an outpatient will be arranged. Future considerations include transcatheter aortic valve implantation after he recovers from infection and his recent cardiac arrest. * Patient to be discharged with ASSURE wearable defibrillator. Admission and Anticipated Discharge Date Admission Date: January 17, 2024 Subjective Patient seen in follow-up. Denies chest discomfort or shortness of breath. Blood pressure stable.Telemetry reveals sinus rhythm with left bundle branch block in the 80s. Physical Exam Constitutional: WD/WN, vitals as above Cardiovascular: Rate/Rhythm: regular rate Heart Sounds: + murmur (2/6 SM ) Vessels: no JVD Extremities: no edema Gastrointestinal (Abdomen): normal bowel sounds, soft, nontender, no hepatosplenomegaly Neurologic: PERRL, EOMI, accommodation nl, no face palsy, no dysarthria Results & Data Vital Signs (Past 12 Hours) Vital Signs Temp Pulse Pulse Resp BP BP Pulse Ox 01/23/24 10:37 36.7 C 81 18 126/68 98 01/23/24 07:53 01/23/24 07:16 76 01/23/24 07:09 36.4 C L 67 16 117/66 98 01/23/24 02:40 36.4 C L 73 18 119/65 97 O2 Del Method 01/23/24 10:37 Room Air 01/23/24 07:53 Room Air 01/23/24 07:16 01/23/24 07:09 Room Air 01/23/24 02:40 Room Air
[2024-01-23 13:02] VITALS: BP 117/66; PULSE 104
== END 2024-01-23 13:45 | DRG 698 ==
LOC: ED 08:22 → SUATTDRO 11:28 → 1E 12:39 → 2S 01-21 17:19

== ENCOUNTER 2024-03-02 15:58 | Inpatient (IN) ==
[2024-03-02 16:57] LABS: Basophils # (auto) 0.02 K/uL (0.00-0.20); Basophils % (auto) 0.3 %; Eosinophils # (auto) 0.05 K/uL (0.00-0.50); Eosinophils % (auto) 0.8 %; Hematocrit (blood only) 28.3 % (42.0-52.0); Hemoglobin 8.9 g/dl (14.0-18.0); Immature Granulocytes # (auto) 0.02 K/uL (0.01-0.20); Immature Granulocytes % (auto) 0.3 %; Lymphocytes # (auto) 1.13 K/uL (1.20-3.40); Lymphocytes % (auto) 17.9 %; Mean Corpuscular Hemoglobin 25.9 pg (25.0-34.0); Mean Corpuscular Hgb Conc 31.4 g/dL (32.0-36.0); Mean Corpuscular Volume 82.5 fL (80.0-100.0); Mean Platelet Volume 9.3 fL (9.4-12.4); Monocytes # (auto) 0.65 K/uL (0.11-0.59); Monocytes % (auto) 10.3 %; Neutrophils # (auto) 4.45 K/uL (1.40-6.50); Neutrophils % (auto) 70.4 %; Platelet Count 223 K/uL (130-400); RDW Coefficient of Variation 14.7 % (11.5-14.5); RDW Standard Deviation 44.5 fL (36.4-46.3); Red Blood Count 3.43 M/uL (4.70-6.10); White Blood Count 6.32 K/ul (4.8-10.8)
[2024-03-02 17:00] LABS: Albumin Globulin Ratio 1.6 (0.9-2); Albumin Level 3.9 gm/dl (3.4-5.0); BUN Creatinine Ratio 17.4 (10-20); Bilirubin,Total 0.4 mg/dl (0.2-1.0); Calcium 8.7 mg/dl (8.6-10.3); Creatinine Clr Calc Pharmacy 68.1 ml/min; Globulin 2.4 gm/dl (2.5-4.0); Magnesium 1.4 mg/dl (1.7-2.4); Potassium 4.1 mmol/L (3.5-5.1); Total Protein 6.3 gm/dl (6.0-8.3)
[2024-03-02 17:06] LABS: Troponin I High Sensitivity 7.3 pg/ml (0-20)
[2024-03-02 17:15] LABS: Thyroid Stimulating Hormone 8.195 uIu/ml (0.300-4.500)
[2024-03-02] MEDS: MAGNESIUM SULFATE / D5W 1 GM/100 ML BAG IV SCH ×2 (17:33→18:45)
[2024-03-02 17:50] LABS: T4 Free Thyroxine 1.15 ng/dl (0.61-1.60)
--- NOTE | 2024-03-02 18:43 | History & Physical Report ---
Date of Service March 02, 2024 Assessment & Plan (1) Syncope: Plan: -patient had syncopal episode of unknown etiology -patient has significant risk factors for arrythmia (given EF, recent stent placement), orthostatic hypotension (given aortic stenosis, BP meds), other vasovagal syncope (on beta blockers) -less likely include CVA (given quick return to consciousness), seizure (possible but other causes more likely), less likely metabolic derangements/autonomic other insufficiency -patient currently asymptomatic -TSH WNL, A1c 7, on statin Plan: -CT head w/o contrast given syncope without clear cause -cardiology consult, appreciate recs -telemetry monitoring, echo -Mg>2, K>4 (mg replenished) -PT/OT evaluation -decrease entresto by half, hold aldactone given relative hypotension (2) CAD (coronary artery disease): Plan: -multivessel coronary invention on 01/13/2024 including 3 overlapping stents to the left anterior descending single stent to left circumflex and 2 overlapping stents to the right coronary artery all drug-eluting -currently on DAPT given drug eluting stent placement 1.5 months prior Plan: -continue DAPT therapy -continue statin -cute entresto in half to once daily, continue metoprolol, hold aldactone, hold SGLT2 (given diuresis effects) given hypotension and concern for orthostatic syncope (3) Severe aortic stenosis: Plan: -makes patient very preload dependent -patient appears euvolemic on exam (JVP at baseline, no edema, labs w/o evidence of dehydration) Plan: -encourage PO intake (4) Hypotension: Plan: -patient is on many medications that can lower BP -BP also low in advanced HFrEF (EF 20%) -diabetes could also play role in worse autonomia Plan: -see above, hold some BP meds -trend daily -encourage PO intake -may benefit from midodrine pending orthostatic workup and need for GDMT (5) Ventricular fibrillation: Plan: -hx of vfib arrest outside of hospital in December Plan: -continue amiodarone -continue lifevest (6) Diabetes mellitus, type II: Plan: -A1c relatively controlled at 7 Plan: -SSI ordered and ACHS checks as well (7) Dyslipidemia: Plan: -continue statin (8) Hypothyroid: Plan: -subclinical hypothyroidism, elevated TSH w/ normal T4 -could be high due to significant recent hospitalizations and stressors Plan: -f/u TSH in 3 months Plan Feeding/fluids: heart healthy Analgesia: tylenol Sedation: na Thromboprophylaxis: SCD (given DAPT and hx of bleeding) Head up position: na Ulcer prophylaxis: na Glycemic control: insulin protocol Spontaneous breathing trial: na Bowel care: miralax prn Indwelling catheter removal: na Deescalation of antibiotics: na I spent a total of 75 minutes coordinating, documenting, and providing care for this patient excluding time spent in the performance of separately billed services. Admission and Anticipated Discharge Date Admission Date: Anticipate 2 days of inpatient hospitalization History of Present Illness Chief Complaint: syncope Primary Care Provider: Elvis Flores MD 83-year-old male who has a significant past medical history of CAD (recent 3 vessel PCI, c/b f/u admission for shock), hx of out of hospital vfib arrest 2023, acute chronic HFrEF with EF of 20% and current LifeVest in place, LBBB, severe aortic valve stenosis, HTN, HLD, T2DM and history of tobacco abuse who presented for syncope. He was told to drink IV contrast, entered the CT scanner he lost consciousness, and pulled out his IV. He then spontaneously awakened as his mental status improved. He was sent to the ED here for further evaluation, and now admitted to medicine for further workup. Patient seen and examined at bedside. He states this is the first time he has had a syncopal episode. He the last thing he remembers is getting into the CT scanner, he remembers them telling him to hold his breath, and then the next thing he remembers is medical personnel surrounding him including Dr. Velasquez. He states he felt confused when he woke up. He states he did eat a sob before going to for the scan. He states he has nausea and vomiting that started when he woke up after the incident in the CT scanner. Denies shortness of breath, chest pain, other symptoms at this time. He feels he was doing well before this incident. CODE STATUS was discussed at length with patient. Risks and benefits of resuscitation were discussed at length we discussed that the patient is currently wearing a LifeVest. He states he is okay with the life last and okay being shocked, but is not interested in chest compressions or intubation in the future. He states he "does not want to go through what he did again". Denies alcohol use, drug use, tobacco use. Feels well supported at home. Still does many of his own ADLs. Allergies Allergy/AdvReac Type Severity Reaction Status Date / Time No Known Allergies Allergy Verified 01/07/24 19:19 Home Medications Medication Instructions Recorded Confirmed Type atorvastatin 40 mg tablet 40 mg PO QAM 12/03/18 01/17/24 History cholecalciferol (vitamin D3) 25 1,000 unit PO QAM 12/03/18 01/17/24 History mcg (1,000 unit) capsule empagliflozin 25 mg tablet 25 mg PO QAM 06/29/22 01/17/24 History (Jardiance) ascorbic acid (vitamin C) 125 mg 125 mg PO DAILY 01/07/24 01/17/24 History chewable tablet (Vitamin C) cyanocobalamin (vitamin B-12) 100 100 mcg PO DAILY 01/07/24 01/17/24 History mcg tablet glipizide 5 mg tablet, extended 5 mg PO QAM 01/07/24 01/17/24 History release 24 hr metformin 1,000 mg tablet 1,000 mg PO BID 01/07/24 01/17/24 History aspirin 81 mg chewable tablet 81 mg PO QAM #0 tabs 01/08/24 01/17/24 Rx ([facility]) amiodarone 200 mg tablet 200 mg PO DAILY 01/17/24 01/17/24 History clopidogrel 75 mg tablet 75 mg PO DAILY 01/17/24 01/17/24 History metoprolol succinate 25 mg 25 mg PO DAILY 01/17/24 01/17/24 History tablet,extended release 24 hr sacubitril 24 mg-valsartan 26 mg 1 tab PO BID 01/17/24 01/17/24 History tablet (Entresto) spironolactone 25 mg tablet 12.5 mg PO DAILY 01/17/24 01/17/24 History levofloxacin 750 mg tablet 750 mg PO DAILY #8 tabs 01/23/24 Rx Past Med/Surg History Problem List (Updated 03/02/24 @ 19:16 by Avelino Cardenas MD) Hypothyroid Hypotension Syncope Severe aortic stenosis CAD (coronary artery disease) Bilateral carpal tunnel syndrome Right carpal tunnel syndrome Right trigger finger got injection Vitamin D deficiency Anemia (Acute) Aortic valve sclerosis (Chronic) follows with Dr. Velasquez Diabetes mellitus, type II (Chronic) NIDDM Dyslipidemia (Chronic) HTN (hypertension) (Chronic) Medical History (Updated 03/02/24 @ 19:16 by Avelino Cardenas MD) Bacteremia due to Gram-negative bacteria Sepsis Hemorrhagic shock Cardiogenic shock Complicated urinary tract infection Hematuria Hyperglycemia due to type 2 diabetes mellitus Septic shock Emphysematous cystitis Generalized weakness Acute hypotension Aortic valve stenosis determined by imaging Ventricular fibrillation Respiratory failure Cardiac arrest GI bleed Aortic valve sclerosis followed with Dr Velasquez Diabetes mellitus, type 2 NIDDM History of anemia r/t GI bleed in 11/2018. EGD and x5 units of blood History of GI bleed (11/2018) Hypertension Hyperlipidemia History of COVID-29 Nov 2021 > not hospitalized Surgical History S/P coronary angioplasty S/P carpal tunnel release (05/15/23) right History of left cataract extraction History of tooth extraction History of tonsillectomy History of esophagogastroduodenoscopy (EGD) 12/04/2018. propofol no issues. History of colonoscopy 10/2010 colonoscopy: Sigmoid diverticulosis Family History Father Diabetes Bladder cancer Mother Diabetes Other No family history of adverse response to anesthesia Social History Smoking Status: Unknown if ever smoked Tobacco Type: Cigarettes Second Hand Exposure: No; Do You Dip or Chew Tobacco: No; Hx Alcohol Use: No Hx Substance Use: No Preferred Language: Turkish Communication Ability: Effective Occupational Therapy Director Required: No Beliefs That Will Affect Care: None Current Living Situation: Spouse Feels Safe at Home: Yes Assistive Devices: None Review of Systems Review of Systems: CONSTITUTIONAL: fatigue EYES: Patient denies any visual symptoms. EARS, NOSE, AND THROAT: No difficulties with hearing. No symptoms of rhinitis or sore throat. CARDIOVASCULAR: Patient denies chest pains, palpitations, orthopnea and paroxysmal nocturnal dyspnea. RESPIRATORY: No dyspnea on exertion, no wheezing or cough. GI: mild nausea : No urinary hesitancy or dribbling. No nocturia or urinary frequency. No abnormal urethral discharge. MUSCULOSKELETAL: No myalgias or arthralgias. NEUROLOGIC: No chronic headaches, no seizures. Patient denies numbness, tingling or weakness. PSYCHIATRIC: Patient denies problems with mood disturbance. No problems with anxiety. ENDOCRINE: No excessive urination or excessive thirst. DERMATOLOGIC: Patient denies any rashes or skin changes. Physical Exam Physical Exam: Gen: A&O 3 NAD HEENT: NCAT, EOMI, not icteric. External ears normal. No rhinorrhea. Moist mucous membranes. Hard of hearing Neck: Supple, full range of motion, no observable masses, No meningeal sign. Lungs: No Respiratory distress. CV: RRR, no edema. Systolic diastolic murmur noted, S3 noted. Abdomen: Soft, nondistended, No rebound tenderness. MSK: No joint swelling, no redness. Skin: No rashes, petechiae, lesions. Normal color per patient. Neuro: Normal Gait, Grossly intact. Psych: Appropriate for situation. Results & Data Results & Data Vital Signs (Past 12 Hours) Vital Signs Temp Pulse Resp BP Pulse Ox O2 Del Method O2 Flow Rate 03/02/24 16:38 64 03/02/24 16:30 100 Room Air 03/02/24 16:20 36.6 C 65 20 121/56 L 94 Room Air 03/02/24 16:00 Room Air 100 Laboratory Results Laboratory Results WBC 6.32 K/ul (4.8-10.8) 03/02/24 16:20 RBC 3.43 M/uL (4.70-6.10) L 03/02/24 16:20 Hgb 8.9 g/dl (14.0-18.0) L 03/02/24 16:20 Hct 28.3 % (42.0-52.0) L 03/02/24 16:20 MCV 82.5 fL (80.0-100.0) 03/02/24 16:20 MCH 25.9 pg (25.0-34.0) 03/02/24 16:20 MCHC 31.4 g/dL (32.0-36.0) L 03/02/24 16:20 RDW Std Deviation 44.5 fL (36.4-46.3) 03/02/24 16:20 RDW Coeff of Erendira 14.7 % (11.5-14.5) H 03/02/24 16:20 Plt Count 223 K/uL (130-400) 03/02/24 16:20 MPV 9.3 fL (9.4-12.4) L 03/02/24 16:20 Immature Gran % (Auto) 0.3 % 03/02/24 16:20 Neut % (Auto) 70.4 % 03/02/24 16:20 Lymph % (Auto) 17.9 % 03/02/24 16:20 [place] % (Auto) 10.3 % 03/02/24 16:20 Eos % (Auto) 0.8 % 03/02/24 16:20 Baso % (Auto) 0.3 % 03/02/24 16:20 Neut # (Auto) 4.45 K/uL (1.40-6.50) 03/02/24 16:20 Lymph # (Auto) 1.13 K/uL (1.20-3.40) L 03/02/24 16:20 [place] # (Auto) 0.65 K/uL (0.11-0.59) H 03/02/24 16:20 Eos # (Auto) 0.05 K/uL (0.00-0.50) 03/02/24 16:20 Baso # (Auto) 0.02 K/uL (0.00-0.20) 03/02/24 16:20 Immature Gran # (Auto) 0.02 K/uL (0.01-0.20) 03/02/24 16:20 Sodium 135 mmol/L (136-145) L 03/02/24 16:20 Potassium 4.1 mmol/L (3.5-5.1) 03/02/24 16:20 Chloride 103 mmol/L (98-107) 03/02/24 16:20 Carbon Dioxide 23 mmol/L (21-32) 03/02/24 16:20 Anion Gap 9 (3-11) 03/02/24 16:20 BUN 15 mg/dl (6-23) 03/02/24 16:20 Creatinine 0.86 mg/dl (0.6-1.4) 03/02/24 16:20 Est Cr Clr Drug Dosing 68.1 ml/min 03/02/24 16:20 eGFR 85.38 03/02/24 16:20 BUN/Creatinine Ratio 17.4 (10-20) 03/02/24 16:20 Glucose 147 mg/dl (70-99(Fasting)) H 03/02/24 16:20 Calcium 8.7 mg/dl (8.6-10.3) 03/02/24 16:20 Magnesium 1.4 mg/dl (1.7-2.4) L 03/02/24 16:20 Total Bilirubin 0.4 mg/dl (0.2-1.0) 03/02/24 16:20 AST 22 U/L (13-39) 03/02/24 16:20 ALT 23 U/L (7-52) 03/02/24 16:20 Alkaline Phosphatase 48 U/L (34-104) 03/02/24 16:20 Troponin I High Sens 7.3 pg/ml (0-20) 03/02/24 16:20 Total Protein 6.3 gm/dl (6.0-8.3) 03/02/24 16:20 Albumin 3.9 gm/dl (3.4-5.0) 03/02/24 16:20 Globulin 2.4 gm/dl (2.5-4.0) L 03/02/24 16:20 Albumin/Globulin Ratio 1.6 (0.9-2) 03/02/24 16:20 TSH 8.195 uIu/ml (0.300-4.500) H 03/02/24 16:20 Free T4 1.15 ng/dl (0.61-1.60) 03/02/24 16:20 Code Status & VTE Plan Code Status -see above conversation, patient is conditional code, with life vest use only, does not want chest compressions or intubation (1) Syncope Syncope type: unspecified Qualified Code(s): R55 - Syncope and collapse (2) CAD (coronary artery disease) Coronary Disease-Associated Artery/Lesion type: [place] artery [place] vs. transplanted heart: [place] heart Associated angina: without angina Qualified Code(s): I25.10 - Atherosclerotic heart disease of [place] coronary artery without angina pectoris (4) Hypotension Hypotension type: hypotension due to drug Qualified Code(s): I95.2 - Hypotension due to drugs (6) Diabetes mellitus, type II Diabetes mellitus fpc insulin use: without emt intermediate use Diabetes mellitus complication status: without complication Qualified Code(s): E11.9 - Type 2 diabetes mellitus without complications (8) Hypothyroid Hypothyroidism type: unspecified Qualified Code(s): E03.9 - Hypothyroidism, unspecified
[2024-03-02 20:14] LABS: Appearance Urine Cloudy (Clear); Bacteria Urine Automated None Seen (None Seen); Bilirubin Urine Negative (Negative); Blood Urine 1+ (Negative); Cast Urine Automated 0-2 /lpf (0-2); Color Urine Yellow; Epithelial Cell Urine Auto 0-2 /hpf (0-2); Glucose Urine UA Negative (Negative); Ketones Urine Trace (Negative); Leukocyte Esterase Urine 3+ (Negative); Nitrite Urine Negative (Negative); Protein Urine Trace (Negative); Specific Gravity Urine > 1.045 (1.000-1.030); Urobilinogen Urine Negative (Negative); WBC Urine Automated >50 /hpf (0-5); pH Urine 5.5 (4.5-7.5)
[2024-03-02] MEDS ORDERED: GLUCOSE 10 TAB/TUBE PO PRN (20:43)
[2024-03-02] MEDS ORDERED: CARBOHYDRATES FOR HYPOGLYCEMIA PO PRN (20:43)
[2024-03-02] MEDS ORDERED: DEXTROSE 50% 50 ML SYRINGE IV PRN (20:43)
[2024-03-02] MEDS ORDERED: POLYETHYLENE (MIRALAX) 17 GM PACK PO PRN (20:43)
[2024-03-02] MEDS ORDERED: ACETAMINOPHEN 325 MG TAB PO PRN (20:43)
[2024-03-02] MEDS ORDERED: GLUCAGON FOR INJ 1 MG VIAL SQ PRN (20:43)
[2024-03-02] MEDS ORDERED: GLUCOSE 40% GEL 15 GM TUBE PO PRN (20:43)
--- NOTE | 2024-03-02 20:52 | CT Scan Report ---
Exam(s): CT HEAD Without Contrast EXAM: CT Head Without Intravenous Contrast CLINICAL HISTORY: Reason for exam: syncope. TECHNIQUE: Axial computed tomography images of the head/brain without intravenous contrast. CTDI is 37.69 mGy and DLP is 702.46 mGy-cm. Automated exposure control was utilized for the study. A dose lowering technique was utilized adhering to the principles of ALARA. COMPARISON: 01/17/2024 FINDINGS: Motion-induced image degradation limits anatomical details. Brain: There is no conclusive evidence of acute intracranial hemorrhage, mass-effect or midline shift. Age-related cerebral atrophy with widening of the extra-axial spaces and ventricular dilatation. There are periventricular/subcortical areas of decreased attenuation, most likely from chronic microvascular disease. Bones/joints: Unremarkable. No acute fracture. Soft tissues: Unremarkable. Sinuses: No air-fluid levels. Left maxillary sinus mild mucoperiosteal thickening. Mastoid air cells: Unremarkable as visualized. IMPRESSION: Limited exam. No definite acute intracranial findings evident. . Electronically signed by: Anne Starks MD, MAYOR 03/02/24 20:51 PM
--- OUTSIDE RECORDS SUMMARY | 2024-03-02 21:05 | External Medical Summary ---
Author Name Unknown Address Unknown Organization K01:[facility] [place] - [address] [place] [id number] Laboratory Report Ordering Provider Test Date Status NOELLE REYES 02/18/2024 11:30:04 Final Observation Date Value Abnormality Reference (Units ) Status BUN 02/18/2024 11:30:04 26 Above high normal 6-20 (mg/dL) Final Creatinine 02/18/2024 11:30:04 0.9 0.6-1.2 (mg/dL) Final Glomerular filtration rate/1.73 sq M.predicted [Volume Rate/Area] in Serum, Plasma or Blood by Creatinine-based formula (CKD-EPI) 02/18/2024 11:30:04 84 >=60 (mL/min) Final eGFR is calculated based on the CKD-EPI 2020 equation. Sodium 02/18/2024 11:30:04 134 Below low normal 135 -146 (mmol/L) Final Potassium 02/18/2024 11:30:04 5.0 3.5-5.1 (m mol/L) Final Cl 02/18/2024 11:30:04 100 98-107 (mm ol/L) Final CO2 02/18/2024 11:30:04 21 Below low normal 22- 32 (mmol/L) Final Anion gap 02/18/2024 11:30:04 13 7-15 (mmol /L) Final Glucose 02/18/2024 11:30:04 126 Above high normal 70 -120 (mg/dL) Final Calcium 02/18/2024 11:30:04 9.0 8.4-10.2 ( mg/dL) Final Performing Location [facility] [place] - [address] [place] [id number]
--- OUTSIDE RECORDS SUMMARY | 2024-03-02 21:05 | External Medical Summary | Summary of Care ---
Author Name Unknown Organization [facility] Address [address] [place] [address] Phone [phone] Care Team Providers Care Caustics Loader Name Role Phone Elvis Flores MD Primary Care Provider [phone] Reason for Visit * Reason Comments Hospital Follow-Up Patient is here toda y for a hospital follow up from heart attack, he just got out about a month ago. Patient is feeling better after but is more tired. Encounter Details Date Type Department Care Team (Late st Contact Info) Description 02/18/2024 11:20 AM EST Office Visit [facility] [address] [place] [id number] Elvis Flores MD [address] [place], [place] [id number] Type 2 diabetes mellitus with hemoglobin A1c goal of less than 7.0% ([facility])*; Type 2 diabetes mellitus with hemoglobin A1c goal of less than 8.0% ([facility]); Heart failure with reduced ejection fraction (HFrEF, <= 40%) ([facility]); Cardiomyopathy, unspecified type ([facility]) Allergies No known active allergiesdocumented as of this encounter (statuses as of 02/18/2024) Medications ONE TOUCH ULTRA BONUS PACK KITIndications: DM type 2, goal A1c below 7 as directed 1 0 5 Active LANCETS MISCIndications :DM type 2, goal A1c below 7 once daily 50 11 02/10/200 5 Active VITAMIN D 1000 UNIT PO [...] TWICE DAILY 180 Tablet 3 4 Active Aspirin 81 MG Oral Tablet Chewable Chew and swallow 1 Tablet by mouth in the morning. 30 Tablet 11 01/16/2024 2:39 PM EST 4 Active Amiodarone HCl 200 MG Oral Tablet (Cordarone) Take 1 Tablet by mouth daily with breakfast. 90 Tablet 01/16/2024 2:39 PM EST 4 Active Nitroglycerin 0.4 MG Sublingual Tablet Sublingual (Nitrostat) Dissolve 1 tablet under the tongue every 5 minutes as needed for chest pain, for up to 3 doses in 15 minutes and call 911 or seek medical attention if no relief. 75 Tablet 3 01/16/2024 2:39 PM EST 4 Active Additional Information Patient not taking.Reported on 02/18/2024 Clopidogrel Bisulfate 75 MG Oral Tablet (Plavix)Indicat ions:Coronary artery disease of [place] artery of [place] heart with stable angina pectoris (HCC) Take 1 Tablet by mouth in the morning. 30 Tablet 6 4 Active Metoprolol Succinate ER 25 MG Oral Tablet Extended Release 24 Hour (toPROL XL) Take 1 Tablet by mouth in the morning. 30 Tablet 5 5 Active glipiZIDE ER 5 MG Oral Tablet Extended Release 24 Hour (Glucotrol XL)Indications: Type 2 diabetes mellitus with hemoglobin A1c goal of less than 8.0% (HCC) Take 1 Tablet by mouth in the morning. 30 Tablet 5 5 Active Entresto 24-26 MG Oral Tablet (sacubitril-marcia sartan 24-26 mg per tab) Take 1/2 tablet by mouth twice daily 15 Tablet 5 Active documented as of this encounter (statuses as of 02/18/2024) Active Problems Problem Noted Date Diagnosed Date Cardiomyopathy 02/18/2024 Hematuria, gross 01/28/2024 Presence of external cardiac defibrillator 01/15 S/P primary angioplasty with coronary stent 05/2023 Heart failure with reduced e jection fraction (HFrEF, <= 40%) 01/15/2024 LBBB (left bundle branch block) 01/15/2024 Anemia due to acute blood loss 01/13/2024 Coronary artery disease invo lving [place] coronary artery of [place] heart 01/10/2024 History of cardiac arrest 01/09/2024 [...] as of this encounter (statuses as of 02/18/2024) Resolved Problems Problem Noted Date Diagnosed Date [...] as of this encounter (statuses as of 02/18/2024) Immunizations Name Administration Dates Next Due COVID-19 [...] Date Recorded PHQ Adult Total Score 0 02/06/2024 Hunger Vital Sign Answer Date Recorded Within the past 12 months, y ou worried that your food would run out before you got the money to buy more. Never true 02/06/20 24 Within the past 12 months, t he food you bought just didn't last and you didn't have money to get more. Never true 02/06/2024 Childcare Answer Date Recorded Do you feel overwhelmed with taking care of a child, family member or friend? No 02/06/2024 Does your family need help f inding childcare? (Household - for ages 0-17 years) Not on file 02/06/2024 Clothing Answer Date Recorded Have you been unable to get clothing when it was really needed? No 02/06/2024 Is your family able to get c lothes or diapers when needed? (Household - for ages 0-17 years) Not on file 02/06/2024 Personal Safety Answer Date Recorded Do you feel unsafe or have concerns for your saf ety? No 02/06/2024 Do you have concerns for you r family's safety? (Household - for ages 0-17 years) Not on file 02/06/2024 Utilities Answer Date Recorded Do you have trouble paying y our heating, water, or electric bill? No 02/06/2024 Is your family able to pay t he heat, water, or electric bill? (Household - for ages 0-17 years) Not on file 02/06/2024 Does your family have access to good internet? (Household - for ages 0-17 years) Not on file 02/06/2024 Employment Status Answer Date Recorded Are you unemployed or without regular income? No 02/06/2024 Does the household have a re gular source of income? (Household - for ages 0-17 years) Not on file 02/06/2024 Social Connections Answer Date Recorded How often do you feel lonely or isolated from th ose around you? Never 02/06/2024 Financial Resource Strain Answer Date R ecorded Do you have any trouble payi ng for your medications, or do you think you might in the future? No 02/06/2024 Does your family have troubl e paying for medicine? (Household - for ages 0-17 years) Not on file 02/06/2024 Transportation Needs Answer Date Record ed Do you have trouble getting a ride to medical visits or work? (Adult - for ages 18 years and over) Not on file 02/06/2024 Does your family have a hard time getting a ride to doctors visits? (Household - for ages 0-17 years) Not on file 02/06/2024 Has lack of transportation k ept you from medical appointments, meetings, work, or from getting things needed for daily living? Check all that apply. No 02/06/2024 Do you (or your family) have trouble finding or paying for a ride (transportation)? (Household - for ages 0-17 years) Not on file 02/06/2024 Housing Stability Answer Date Recorded Do you currently live in a s helter or have no steady place to sleep at night? No 02/06/2024 Do you think you are at risk of becoming homeless? (Adult - for ages 18 years and over) Not on file 02/06/2024 Does your family worry about paying for your home or becoming homeless? (Household - for ages 0-17 years) Not on file 1 04/08/2023 Are you homeless or worried that you might be in the future? No 02/06/2024 Are you (or your family) reymundo eless or worried that you might be in the future? (Household - for ages 0-17 years) Not on file Food Insecurity Answer Date Recorded Do you need food for this week? No 02/06/2024 Are you able to get enough f ood for your family? (Household - for ages 0-17 years) Not on file 02/06/2024 Does your family need food t his week? (Household - for ages 0-17 years) Not on file 02/06/2024 Do you always have enough fo od for your family? (Household - for ages 0-17 years) Not on file 02/06/2024 Sex and Gender Information Value Date Recorded [...] Sign Reading Time Taken Comments Blood Pressure 115/64 02/18/2024 11:52 AM EST Pulse 75 02/18/2024 11:52 AM EST Temperature 36.1 C (96.9 F) 02/18/2024 11:[address] Respiratory Rate 16 02/18/2024 11:52 AM EST Oxygen Saturation 98% 02/18/2024 11:52 AM EST Inhaled Oxygen Concentration - - Weight 78.2 kg (172 lb 6.4 oz) 02/18/2024 11:52 AM EST Height 179.1 cm (5' 10.5") 02/18/2024 11:[address] Body Mass Index 24.39 02/18/2024 11:52 AM EST documented in this encounter Functional Status [...] Antonieta Mejia RN documented in this encounter Patient Instructions * Patient Instructions* Emily Fisher, Student - 02/18/2024 12:01 PM EST Diabetes: Keeping Feet Healthy Inspect your feet every day for signs of a problem. Diabetes can damage nerves in your feet and cause neuropathy. This condition makes it hard for you to feel injuries or sore spots. Diabetes can also change blood flow, making it harder for small problems, like a blister, to heal properly. In fact, minor injuries can quickly become serious infections that send you to the hospital. Practice self-care to protect your feet and keep them healthy. Take Special Care Inspect your feet daily for problems such as redness, blisters, cracks, dry skin, or numbness. Use a mirror to see the bottoms of your feet. Or, ask for help. Manage your diabetes. Monitor and control your blood sugar. Take all your medications as prescribed. Avoid walking barefoot, even indoors. Wash your feet with warm water and mild soap. Dry well, especially between toes. Dont treat corns or calluses yourself. Talk to your doctor or qc scientist (a doctor who specializes in foot care) if you need assistance trimming your toenails. Use moisturizing cream or lotion if you have dry skin, but dont use it between toes. Dont use heating pads on your feet. If you have neuropathy, you could get a burn and not feel it. Stop smoking. Smoking restricts blood flow and can make it harder for wounds to heal. Have Regular Checkups Foot problems can develop quickly. So be sure to follow your healthcare teams schedule for regular checkups. During office visits, take off your shoes and socks as soon as you get in the exam room. Ask your healthcare provider to examine your feet for problems. This will make it easier to find and treat small skin irritations before they get worse. Regular checkups can also help keep track of the blood flow and feeling in your feet. If you have neuropathy, you may need to have checkups more often. Wear Proper Footwear Wearing proper footwear is very important. If areas of your feet have been damaged by too much pressure, your healthcare provider may recommend changing your footwear. In some cases, avoiding high heels or tight work boots may be all thats needed. Or, your healthcare provider may recommend special shoes or custom inserts. These help protect your feet and keep existing irritations from getting worse. If you need special footwear, ask your healthcare provider if you qualify for [employer] diabetic shoe program. Make Sure Shoes and Socks Fit Any pair of shoes--new or old--should feel comfortable as soon as you put them on. There shouldnt be any rubbing when you walk. Wear the right shoe for any activity. For instance, a running shoe is designed to keep your feet injury-free while jogging. Buy shoes at the end of the day, when your feet are larger. Make sure they provide support without feeling too loose. Make sure your socks fit, t oo. Wear soft, seamless, well-padded socks for activity. Cotton or microfiber socks are best to help to absorb sweat. To protect your feet, avoid shoes that are open-toed or open-heeled. If you have questions about what kinds of shoes and socks are best, talk to your healthcare team. Get Regular Exercise Regular exercise improves blood flow in your feet. It also increases foot strength and flexibility.Gentle exercises, like walking or riding a stationary bicycle, are best. You can also do special foot exercises. Just be sure to talk with your healthcare provider before starting any exercise program. Also mention if any exercise causes pain, redness, or other signs of foot problems. Note: If you have any kind of break in the skin of your foot or ankle, keep the area clean. Then call your doctor--especially if the area doesnt appear to be healing. 6820-6649 [employer], [address] [place] [address]. All rights reserved. This information is not intended as a substitute for professional medical care. Always follow your healthcare professional's instructions. documented in this encounter Progress Notes * Elvis Flores MD - 02/18/2024 12:48 PM EST Subjective: Russ Love is a 83 year old male. Chief Complaint Patient presents with Hospital Follow-Up Patient is here today for a hospital follow up from heart attack, he just got out about a month ago. Patient is feeling better after but is more tired. HPI: 83-year-old seen today in follow-up after hospitalizations that included [facility] 01/08/2024 to 01/17/2024 followed [facility] 1223 and [facility] [id number] His initial hospitalization at [facility] was preceded by a cardiac arrest occurred when he was attending a ice hockey game at [facility]. He was resuscitated in initially seen at [facility] and then life flighted to [facility]. He underwent cardiac catheterization and stenting of coronary arteries totaling6. He has known aortic stenosis. Plan was some point in time to come back and do TAVR procedure forthe aortic stenosis. Within 12 hours of discharge from [facility] he developed significant blood clots in the Celeste catheter in presented to [facility]. Evaluation there showed the patient to have sepsis with positiveblood cultures and urine culture positive for Enterococcus and Klebsiella. He was treated with IV antibiotics as directed by Infectious Disease telehealth from [facility]. CT scan of the pelvis showed air in the bladder as well as the bladder wall. He then was discharged/transferred to [facility] for rehab. Before discharge the Celeste catheter was removed. Since he has been home he had a visit with Cardiology pharmacology (Sy sandoval) as of February 12. Because of low blood pressure some medication changes were made including staying off of spironolactone and stopping Flomax and stopping Jardiance. He was continued on Entresto as well as his other regular medications. He does have follow-up with Cardiology pharmacology in 6 days' time i.e. February 23. He is scheduled for CT scan March 02 with IV contrast at [facility]. Um not absolutely sure what this CT scan is about but suspect it is to look at pelvis and compare to CT scan done at [facility] when he was septic. (I will look into this further to be sure it is inappropriate study). He had a basic metabolic panel blood draw this morning which is necessary for him to proceed with that is CT scan with contrast. Since home he is doing okay. Fatigued but is able to walk. His home physical therapist told him that he is doing much better than expected. His appetite is good even though he lost 17 lb in the course of a month. Blood sugars have ranged from the 120s to 180s. He is on glipizide but off of Jardiance. Patient Active Problem List Diagnosis Type 2 diabetes mellitus with hemoglobin A1c goal of less than 7.0% (HCC) E.D. History of tobacco use DYSLIPIDEMIA, GOAL LDL BELOW 100 Vitamin D deficiency Right thyroid nodule HTN, goal below 140/90 Aortic valve sclerosis Aortic valve stenosis History of cardiac arrest Coronary artery disease involving [place] coronary artery of [place] heart Anemia due to acute blood loss S/P primary angioplasty with coronary stent Heart failure with reduced ejection fraction (HFrEF, <= 40%) ([facility]) LBBB (left bundle branch block) Presence of external cardiac defibrillator Hematuria, gross Cardiomyopathy ([facility]) Current Outpatient Medications Medication Sig Dispense Refill ONE TOUCH ULTRA BONUS PACK KIT as directed 1 0 LANCETS MISC once daily 50 11 VITAMIN D 1000 UNIT PO CAPS 1 capsule daily 30 Cap 11 CYANOCOBALAMIN (VITAMIN B-12) 100 MCG Tablet Take 1 Tablet by mouth in the morning. [employer] Ultra In Vitro Strip (Glucose Blood) use to test blood sugars once daily as directed 100 Strip 3 Vitamin C 125 MG Oral Tablet Chewable Take by mouth. Atorvastatin Calcium 40 MG Oral Tablet (Lipitor) Take 1 Tablet by mouth in the morning. 90 Tablet 3 metFORMIN HCl 1000 MG Oral Tablet (Glucophage) TAKE 1 TABLET BY MOUTH TWICE DAILY 180 Tablet 3 Aspirin 81 MG Oral Tablet Chewable Chew and swallow 1 Tablet by mouth in the morning. 30 Tablet 11 Amiodarone HCl 200 MG Oral Tablet (Cordarone) Take 1 Tablet by mouth daily with breakfast. 90 Tablet 0 Clopidogrel Bisulfate 75 MG Oral Tablet (Plavix) Take 1 Tablet by mouth in the morning. 30 Tablet 6 Metoprolol Succinate ER 25 MG Oral Tablet Extended Release 24 Hour (toPROL XL) Take 1 Tablet by mouth in the morning. 30 Tablet 5 glipiZIDE ER 5 MG Oral Tablet Extended Release 24 Hour (Glucotrol XL) Take 1 Tablet by mouth in themorning. 30 Tablet 5 Entresto 24-26 MG Oral Tablet (sacubitril-valsartan 24-26 mg per tab) Take 1/2 tablet by mouth twice daily 15 Tablet 5 Nitroglycerin 0.4 MG Sublingual Tablet Sublingual (Nitrostat) Dissolve 1 tablet under the tongue every 5 minutes as needed for chest pain, for up to 3 doses in 15 minutes and call 911 or seek medicalattention if no relief. (Patient not taking: Reported on 02/18/2024) 75 Tablet 3 No current facility-administered medications for this visit. Review of patient's allergies indicates: No Known Allergies Objective: BP 115/64 (BP Site: Right Arm, BP Position: Sitting, BP Cuff Size: Regular) | Pulse 75 | Temp 96.9 F (36.1 C) (Temporal Artery) | Resp 16 | Ht 5' 10.5" (1.791 m) | Wt 172 lb 6.4 oz (78.2 kg) | SpO2 98% | BMI 24.39 kg/m | BSA 1.97 m Physical Exam: CONST: alert, pleasant, no acute distress. He is sitting in the wheelchair. Appears somewhat fatigued but alert HEAD: normocephalic, atraumatic Eyes - PERRLA, EOM'I OROPHARYNX: clear, no swelling or erythema, moist CV: regular rate and rhythm, grade 3/6 systolic murmur CHEST: clear to auscultation bilaterally, no rales or wheezing ABD: soft, non tender, non distended, no masses or hepatosplenomegaly EXT: no edema, no joint swelling or deformities, SKIN: no rash or significant lesions ASSESSMENT/PLAN: Type 2 diabetes mellitus with hemoglobin A1c goal of less than 7.0% ([facility]) (Primary)-we do not need tight control. He will continue the glipizide. Will re- evaluate in the future as far as possibly restarting the Jardiance Type 2 diabetes mellitus with hemoglobin A1c goal of less than 8.0% ([facility]) Heart failure with reduced ejection fraction (HFrEF, <= 40%) ([facility])-he will remain on Entresto. Continue follow with Cardiology. Cardiomyopathy, unspecified type ([facility])-see above History of cardiac arrest-for now he will keep the external defibrillator on. Relative hypotension-blood pressure appears to be a little better today but he is off of the spironolactone and Flomax and Jardiance Complicated urinary tract infection with bacteremia-I suspect a CT scan ordered for March 02 jack follow-up from that done at [facility] but will double check. I will see him again in about a month and a half. Routine health maintenance-I highly recommend he get RSV vaccine. Check-out note: Merle apt with me for Donna 1 month later Elvis Flores MD * Emily Fisher, Student - 02/18/2024 12:01 PM EST Socks and Shoes Removed for Annual Diabetic Foot Screening RIGHT FOOT: No Reddened, Cracking, Or Open Areas Noted. RIGHT Dorsalis Pedis Pulse: Palpable RIGHT Posterior Tibial Pulse: Palpable RIGHT Monofilament:Patient reports feeling monofilament pressure on plantar surface of foot LEFT FOOT: No Reddened, Cracking or Open Areas Noted. LEFT Dorsalis Pedis Pulse: Palpable LEFT Posterior Tibial Pulse: Palpable LEFT Monofilament:Patient reports feeling monofilament pressure on plantar surface of foot Do you need diabetic shoes: No DM Foot Exam completed today. Provider aware. Hunter Roldan documented in this encounter Nursing Notes * Emily Fisher Student - 02/18/2024 11:59 AM EST The patient has been properly identified by confirmation of name and date of . Chief Complaint Patient presents with Hospital Follow-Up Patient is here today for a hospital follow up from heart attack, he just got out about a month ago. Patient is feeling better after but is more tired. documented in this encounter Plan of Treatment Upcoming Encounters Date Type Department Care Team (Late st Contact Info) Description 02/24/2024 3:00 PM EST Office Visit Cardiology, [facility] [address] [facility] [place] [address] [facility] Cardiology [facility] [address] [facility] [place] [address] 03/02/2024 2:30 PM EST Imaging Radiology [address] [facility] [place], [place] [address] 03/03/2024 11:00 AM EST Office Visit Cardiology, [facility] [address] [facility] [place] [address] Sonido Velasquez, [address] [facility] [place] [address] 03/09/2024 3:00 PM EST Procedure Only Urology, [facility] [address] [place] [address] Katherine Mccormick MD [address] [place] [address] 03/23/2024 1:30 PM EST Cardiac Studies Cardiac Studies [facility], [facility] [address] [place] [address] [facility], [facility] [address] [place] [address] 03/23/2024 2:00 PM EST Office Visit Cardiology [facility], [facility] [address] [place] [address] Robin Humphrey MD [address] [place] [address] 04/03/2024 9:40 AM EST Office Visit [facility] [address] [place] [phone] Elvis Flores MD [address] [place] [address] 04/15/2024 11:00 AM EST Office Visit Cardiology, [facility] [address] [facility] [place] [address] Hayley Vuong IV, MD [address] [facility] [place] [address] 11/11/2024 9:30 AM EDT Cardiac Studies Cardiac Studies, [facility] [address] [facility] [place] [address] Health Maintenance Due Date Last Done Comments Adult Wellness Visit 08/03/2022 08/03/2021 Diabetic Eye Exam 06/29/2023 06/28/2022, , 08/21/2014, Additional history exists Diabetic Foot Exam 09/02/2023 09/01/2022, 1 2020, 10/21/2019, Additional history exists COVID-19 Vaccine ( season) 2023 01/20/2022, 12/15/2020, 05/19/2020, Additional history exists HbA1c 07/07/2024 01/08/2024, 08/12, 03/04/2023, Additional history exists Albumin/Creatinine Ratio 09/04/2024 024, 08/06/2022, 09/14/2021, Additional history exists B-12 09/04/2024 09/05/2023, 07/13, 09/14/2021, Additional history exists GFR 01/30/2025 01/31/2024, 01/11, 01/16/2024, Additional history exists Depression Screening 02/05/2025 02/06/2024, 09/04/19 24 DTap/Tdap Vaccines (4 - Td or Tdap) 09/01/2032 09/01/2022, 09/22/2012, 05/12/2004 Pneumococcal Vaccine: 50+ Years Completed 01/13/2015, 12/14/2005 Zoster Vaccines Completed [...] this encounter Medical Devices Implanted Type Area Hotel Night Auditor Device Identifier Shelf Expiration Date Model / Serial / Lot Stent Bayard 2.25x22 [employer] - [id number] Implanted:Qty: 1 on 01/13/2024 by Nelsy Calvillo MD at [facility] [place] [employer] : VASCULAR [id number] 08/28/2026 [id number] UX / / [id number] Stent Bayard 2.0x18 [employer] - [id number] Implanted:Qty: 1 on 01/13/2024 by Nelsy Calvillo MD at [facility] [place] [employer] : VASCULAR [id number] 06/25/2026 [id number] UX / / [id number] Stent Dawit 2.50x15 [employer] - [id number] Implanted:Qty: 1 on 01/13/2024 by Nelsy Calvillo MD at [facility] [place] [employer] : VASCULAR 07/22/2026 [id number] UX / / [id number] Stent Dawit 2.0x12 [employer] - [id number] Implanted:Qty: 1 on 01/13/2024 by Nelsy Calvillo MD at [facility] [place] [employer] : VASCULAR [id number] 03/05/2026 [id number] UX / / [id number] Stent Bayard 2.50x26 [employer] - [id number] Implanted:Qty: 1 on 01/13/2024 by Nelsy Calvillo MD at [facility] [place] [employer] : VASCULAR [id number] 09/24/2026 [id number] UX / / [id number] Stent Dawit 2.50x26 [employer] - [id number] Implanted:Qty: 1 on 01/13/2024 by Nelsy Calvillo MD at [facility] [place] [employer] : VASCULAR [id number] 09/24/2026 [id number] UX / / [id number] documented as of this encounter Visit Diagnoses Diagnosis Type 2 diabetes mellitus with hemoglobin A1c goal of less than 7.0% (HCC)- Primary Type 2 diabetes mellitus with hemoglobin A1c goal of less than 8.0% (HCC) Heart failure with reduced ejection fraction (HFrEF, <= 40%) (HCC) Cardiomyopathy, unspecified type (HCC) documented in this encounter Advance Directives * Full Code (Latest Code Status on File) Date Activated Date Inactivated Comments 01/08/2024 10:30 PM 01/16/2024 7:40 PM This order reflects the patients wishes and were consensually agreed upon. Question Answer Comments Discussion of Advance Directives occurred with: Patient Care Teams Caustics Loader Relationship Specialty Start Date End Date Elvis Flores MD PCP - General 06/09/1998 documented as of this encounter
--- OUTSIDE RECORDS SUMMARY | 2024-03-02 21:05 | External Medical Summary | Summary of Care ---
Author Name Unknown Organization [facility] Address [address] [place] [address] Phone [phone] Care Team Providers Care Assistant To The Ceo Name Role Phone Elvis Flores MD Primary Care Provider [phone] Reason for Visit * Reason Comments Outpatient Testing Encounter Details Date Type Department Care Team (Late st Contact Info) Description 02/18/2024 12:00 PM EST Laboratory Laboratory, [facility] [address] [place] [address] [place], Laboratory [address] [place], [place] [id number] Heart failure with reduced ejection fraction (HFrEF, <= 40%) ([facility]) Allergies No known active allergiesdocumented [...] 3 01/16/2024 2:39 PM EST 4 Active Clopidogrel Bisulfate 75 MG Oral Tablet (Plavix)Indicat ions:Coronary artery disease of [place] artery of [place] heart with stable angina pectoris (HCC) Take [...] by mouth twice daily 15 Tablet 5 5 Active documented as of this encounter (statuses as of 02/18/2024) Active Problems Problem Noted Date Diagnosed Date Hematuria, gross 01/28/2024 Presence of external cardiac defibrillator 01/15 S/P primary angioplasty with coronary stent 05/2023 Heart failure with reduced e jection fraction (HFrEF, <= 40%) 01/15/2024 LBBB (left bundle branch block) 01/15/2024 Anemia due to acute blood loss 01/13/2024 Coronary artery disease invo lving [place] coronary artery of [place] heart 01/10/2024 History of cardiac arrest 01/09/2024 [...] No 02/06/2024 Does the household have a [facility]? (Household - for ages [...] 02/24/2024 3:00 PM EST Office Visit Cardiology, [facility] [address] [place] [address] [facility] Cardiology [facility] [address] [place] [address] 03/02/2024 2:30 PM EST Imaging Radiology [facility] [address] [facility] [place] [address] 03/03/2024 11:00 AM EST Office Visit Cardiology, [facility] [address] [place] [address] Sonido Velasquez, [address] [facility] [place] [address] 03/06/2024 9:40 AM EST [place] [address] [place] [phone] Elvis Flores MD [address] [place] [address] 03/09/2024 3:00 PM EST Procedure Only Urology, [place] [address] [place] [address] Katherine Mccormick MD [address] [place] [address] 03/23/2024 1:30 PM EST Cardiac Studies [facility] Studies [facility], [place] [address] [place] [address] [place], Ekg [address] [place] [place], [place] [id number] 03/23/2024 2:00 PM EST Office Visit Cardiology [facility], [place] [address] [place] [address] Robin Humphrey MD [address], [place] [id number] 04/15/2024 11:00 AM EST Office Visit Cardiology, [facility] [address] [place] [address] Hayley Vuong IV, MD [address] [place] [address] 11/11/2024 9:30 AM EDT Cardiac Studies Cardiac Studies, [address] [address] Pending Results Name Type Priority Associated Diagnoses Date /Time BASIC METABOLIC PANEL Lab Routine Heart failure with reduced ejection fraction (HFrEF, <= 40%) ([facility]) 02/18/2024 11:30 AM EST Health Maintenance Due Date Last [...] history exists Depression Screening 02/05/2025 02/06/2024, 09/04/19 DTap/Tdap Vaccines (4 - Td or Tdap) [...] this encounter Medical Devices Implanted Type Area Quality Assurance Director Device Identifier Shelf Expiration Date Model / Serial / Lot Stent [place] 2.25x22 [employer] - [id number] Implanted:Qty: 1 on 01/13/2024 by Nelsy Calvillo MD at [facility] [employer] : VASCULAR [id number] 08/28/2026 [id number] UX / / [id number] Stent [place] 2.0x18 [employer] - [id number] Implanted:Qty: 1 on 01/13/2024 by Nelsy Calvillo MD at [facility] [employer] : VASCULAR [id number] 06/25/2026 [id number] UX / / [id number] Stent [place] 2.50x15 [employer] - [id number] Implanted:Qty: 1 on 01/13/2024 by Nelsy Calvillo MD at [facility] [employer] : VASCULAR 07/22/2026 [id number] UX / / [id number] Stent [place] 2.0x12 [employer] - [id number] Implanted:Qty: 1 on 01/13/2024 by Nelsy Calvillo MD at [facility] [employer] : VASCULAR [id number] 03/05/2026 [id number] UX / / [id number] Stent [place] 2.50x26 [employer] - [id number] Implanted:Qty: 1 on 01/13/2024 by Nelsy Calvillo MD at [facility] [employer] : VASCULAR [id number] 09/24/2026 [id number] UX / / [id number] Stent [place] 2.50x26 [employer] - [id number] Implanted:Qty: 1 on 01/13/2024 by Nelsy Calvillo MD at [facility] [employer] : VASCULAR [id number] 09/24/2026 [id number] UX / / [id number] documented as of this encounter Visit Diagnoses Diagnosis Heart failure with reduced ejection fraction (HFrEF, <= 40%) (HCC) documented in this encounter Advance Directives * Full Code (Latest Code Status on File) Date Activated Date Inactivated Comments 01/08/2024 10:30 PM 01/16/2024 7:40 PM This order reflects the patients wishes and were consensually agreed upon. Question Answer Comments Discussion of Advance Directives occurred with: Patient Care Teams Assistant To The Ceo Relationship Specialty Start Date End Date Elvis Flores MD PCP - General 06/09/1998 documented as of this encounter
--- OUTSIDE RECORDS SUMMARY | 2024-03-02 21:05 | External Medical Summary | Summary of Care ---
Author Name Unknown Organization [facility] Address [address] [place] [address] Phone [phone] Care Team Providers Care Company Laborer Name Role Phone Elvis Flores MD Primary Care Provider [phone] Reason for Visit * Reason Comments Congestive Heart Failure * Evaluate & Treat - Unlimited Visits (Within 3 days (urgent)) - Authorized Specialty Diagnoses / Procedures Referred By Contac t Referred To Contact Pharmacist / Pharmacy Diagnoses Acute on chronic heart failure with reduced ejection fraction (HFrEF, <= 40%) ([facility]) Nadiya Watkins RN [address] [place] [address] Phone: tel: fax: Referral ID Status Reason Start Date Expiration Date Visits Requested Visits Authorized [id number] Authorized Specialty Services Required 4 08/04/2024 99 99 Encounter Details Date Type Department Care Team (Late st Contact Info) Description 02/24/2024 3:00 PM EST Office Visit Cardiology, [facility] [address] [facility] [place] [address] [facility] Cardiology [place] [address] [facility] [place] [address] Heart failure with reduced ejection fraction (HFrEF, <= 40%) ([facility])* Allergies No known active allergiesdocumented as of this encounter (statuses as of 02/24/2024) Medications ONE TOUCH ULTRA BONUS PACK KITIndications [...] DAILY 180 Tablet 3 09/10/19 24 Active Aspirin 81 MG Oral Tablet Chewable Chew and swallow 1 Tablet by mouth in the morning. 30 Tablet 11 4 2:39 PM EST 01/17/20 24 Active Amiodarone HCl 200 MG Oral Tablet (Cordarone) Take 1 Tablet by mouth daily with breakfast. 90 Tablet 4 2:39 PM EST 01/17/20 24 Active Nitroglycerin 0.4 MG Sublingual Tablet Sublingual (Nitrostat) Dissolve 1 tablet under the tongue every 5 minutes as needed for chest pain, for up to 3 doses in 15 minutes and call 911 or seek medical attention if no relief. 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 30 Tablet 6 02/06/20 24 Active glipiZIDE ER 5 MG Oral Tablet Extended Release 24 Hour (Glucotrol XL)Indications :Type 2 diabetes mellitus with hemoglobin A1c goal of less than 8.0% (HCC) Take 1 Tablet by mouth in the morning. 30 Tablet 5 02/12/19 25 Active Entresto 24-26 MG Oral Tablet (sacubitril-va lsartan 24-26 mg per tab) Take 1/2 tablet by mouth twice daily 15 Tablet 5 02/12/19 25 Active Metoprolol Succinate ER 50 MG Oral Tablet Extended Release 24 Hour (toPROL XL) Take 1 Tablet by mouth in the morning. 30 Tablet 5 02/23/19 25 Active Metoprolol Succinate ER 25 MG Oral Tablet Extended Release 24 Hour (toPROL XL) Take 1 Tablet by mouth in the morning. 30 Tablet 5 02/12/19 25 025 Discontinued documented as of this encounter (statuses as of 02/24/2024) Active Problems Problem Noted Date Diagnosed Date Cardiomyopathy 02/18/2024 Hematuria, gross 01/28/2024 Presence of external cardiac defibrillator 01/15 S/P primary angioplasty with coronary stent 05/2023 Heart failure with reduced e jection fraction (HFrEF, <= 40%) 01/15/2024 LBBB (left bundle branch block) 01/15/2024 Anemia due to acute blood loss 01/13/2024 Coronary artery disease invo lving atka coronary artery of atka heart 01/10/2024 History of cardiac arrest 01/09/2024 [...] as of this encounter (statuses as of 02/24/2024) Resolved Problems Problem Noted Date Diagnosed Date [...] as of this encounter (statuses as of 02/24/2024) Immunizations Name Administration Dates Next Due COVID-19 [...] money to buy more. Never true 02/06/20 Within the past 12 months, t he [...] Sign Reading Time Taken Comments Blood Pressure 102/51 02/24/2024 3:10 PM EST Pulse 77 02/24/2024 3:10 PM EST Temperature - - Respiratory Rate - - Oxygen Saturation - - Inhaled Oxygen Concentration - - Weight 78.8 kg (173 lb 12.8 oz) 02/24/2024 3:10 PM EST Height - - Body Mass Index 24.59 02/18/2024 11:52 AM EST documented in this [...] this encounter Patient Instructions * Patient Instructions* Rosi Tyler, [facility] - 02/24/2024 3:19 PM EST INCREASE Metoprolol Er 50 mg daily Rosi Lenz D Clinical [facility] Pharmacist Cardiology 02/24/2024,3:21 PM documented in this encounter Progress Notes * Rosi Tyler RPh - 02/24/2024 3:01 PM EST Images from the original note were not included. Medication Therapy Disease Management - Heart Failure History of Presenting Illness This visit occurred in person. Russ Love, identified by name and date of , is a 83 year old male presents to the Heart Failure [facility] Clinic for return visit. Chief Complaint Patient presents with Congestive Heart Failure History HPI Patient presents in wheelchair with today. Patient with cardiac arrest on 01/08/24: [place] [facility] Severe 3Vessel Dx and sever . S/P PCIx 6 stents. D/C 01/16/24 01/17/24: Readmit for gross hematuria, hypotensive, tachypneic, tachycardic and minimally responsive. 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 Patient was admitted to the ICU and required norepinephrine to maintain his blood pressure. Urine culture grew outKlebsiella and enterococci. Blood culture grew Klebsiella. Treated with Unasyn inpatient and transitioned to 2 week course Levaquin 750 mg QD on discharge. Had mejia catheter and recommendation was for at least 2 weeks post discharge. ECHO w/ EF=20% with the presence of global hypokinesis. Additionally, pt with acute blood loss anemia secondary to hematuria during admission. Hbg of 6.8, was transfused with 2 units pRBC on 01/16. 01/22 - 03/06/23: [facility] Overall feeling well today. Taking all medications as prescribed. Recently started on 1/2 tablet twice daily of Entresto and is tolerating. Follow up BMP stable. Potassium borderline at 5. Wants to go to [facility] in the spring to visit grandchild. Follows with heart failure nurse case manager Nadiya. Body port scale is now working. Patient is currently on Amiodarone, unsure of indication. Seeing Dr Velasquez 03/03/23 for hospital discharge follow up. Thankfully denies any edema, shortness of breath, or chest pain. ICD: Life vest-wearing during visit Current Medications Beta-Bry: Metoprolol Er 25 mg QD ACEi/ARB/ARNI: Entresto 24-26 mg 1/2 tablet BID-started 02/12/23 Other: Plavix 75 mg QD; ASA 81 mg QD; Amiodarone 200 mg QD; Atorvastatin 40 mg QD Review of Systems Weight gain of 2 - 3 pounds over 24 hours? No Weight gain of 5 pounds over 3 days? No Symptoms: no dyspnea at rest, no dyspnea with exertion, no edema, no light- headedness, no dizziness Problem List Reviewed and updated in the EHR during the visit Objective Current Vitals There were no vitals filed for this visit. Past Vitals BP Readings from Last 3 Encounters: 02/18/24 115/64 02/13/24 98/68 01/16/24 97/74 Pulse Readings from Last 3 Encounters: 02/18/24 75 02/13/24 81 01/16/24 71 Wt Readings from Last 3 Encounters: 02/18/24 78.2 kg (172 lb 6.4 oz) 02/13/24 68.1 kg (150 lb 3.2 oz) 01/16/24 80.3 kg (177 lb 1.6 oz) Patient Reported Vitals Home BP: 113/79 115/60 126/67 112/56 114/59 131/72 HR high 60s-80s Weight on transmitting scale: 168-169 lbs Doing PT 2-3 days per week Patient Reported Blood Glucose AM: 188, 135, 135, 103 Before lunch: 195, 136 Before Dinner: 108; 131 Before bedtime: 191 Denies any lows Last EF LEFT VENTRICULAR EJECTION FRACTION (%) Date Value 01/10/2024 30 11/12/2023 40 09/12/2022 50 Labs HEMOGLOBIN A1C - [facility] Date/Time Value Ref Range Status 01/08/2024 10:44 PM 7.1 (H) 4.0 - 5.6 % Final Comment: The use of HbA1c to monitor glycemic status is based on normal hemoglobin and HbA composition. Thistest should not be used in patients with abnormal hemoglobin that affects the half life of the red blood cell or the in vivo glycation rates. 09/05/2023 08:01 AM 6.6 (H) 4.0 - 5.6 % Final Comment: The use of HbA1c to monitor glycemic status is based on normal hemoglobin and HbA composition. Thistest should not be used in patients with abnormal hemoglobin that affects the half life of the red blood cell or the in vivo glycation rates. 03/04/2023 11:25 AM 7.1 (H) 4.0 - 5.6 % Final Comment: The use of HbA1c to monitor glycemic status is based on normal hemoglobin and HbA composition. Thistest should not be used in patients with abnormal hemoglobin that affects the half life of the red blood cell or the in vivo glycation rates. 10/21/2019 12:09 PM 8.5 (H) 4.0 - 5.6 % Final Comment: The use of HbA1c to monitor glycemic status is based on normal hemoglobin and HbA composition. This test should not be used in patients with abnormal hemoglobin that affects the half life of the red blood cell or the in vivo glycation rates. 11/18/2018 08:36 AM 6.9 (H) 4.0 - 5.6 % Final Comment: The use of HbA1c to monitor glycemic status is based on normal hemoglobin and HbA composition. This test should not be used in patients with abnormal hemoglobin that affects the half life of the red blood cell or the in vivo glycation rates. 03/06/2018 10:43 AM 7.1 (H) 4.0 - 5.6 % Final Comment: The use of HbA1c to monitor glycemic status is based on normal hemoglobin and HbA composition. This test should not be used in patients with abnormal hemoglobin that affects the half life of the red blood cell or the in vivo glycation rates. Recent Labs Units 02/18/24 1130 01/31/24 0607 01/24/24 0614 BUN - [facility] mg/dL 26* 18 10 CREATININE - [facility] mg/dL 0.9 1.1 0.7 ESTIMATED GLOMERULAR FILTRATION RATE - [facility] mL/min 84 65 >90 Serum creatinine: 0.9 mg/dL 02/18/24 1130 Estimated creatinine clearance: 64.1 mL/min Recent Labs Units 02/18/24 1130 01/31/24 0607 01/24/24 0614 POTASSIUM - [facility] mmol/L 5.0 4.6 4.7 Recent Labs Units 02/18/24 1130 01/31/24 0607 01/24/24 0614 CO2 - [facility] mmol/L 21* 21* 20* Results for orders placed or performed in visit on 05/02/16 LIPID PANEL Result Value Ref Range HOURS FASTING 12 hours Triglycerides 198 <200 mg/dL Cholesterol 178 <200 mg/dL HDL Cholesterol 31 (L) >39 mg/dL Cholesterol-HDL Ratio 5.7 LDL Cholesterol 107 0 - 129 mg/dL Results for orders placed or performed in visit on 12/19/15 LIPID PANEL Result Value Ref Range HOURS FASTING 12 hours Triglycerides 109 <200 mg/dL Cholesterol 108 <200 mg/dL HDL Cholesterol 34 (L) >39 mg/dL Cholesterol-HDL Ratio 3.2 LDL Cholesterol 52 0 - 129 mg/dL Results for orders placed or performed in visit on 01/27/14 LIPID PANEL Result Value Ref Range HOURS FASTING 12 hours Triglycerides 142 <200 mg/dL Cholesterol 115 <200 mg/dL HDL Cholesterol 33 (L) >39 mg/dL Cholesterol-HDL Ratio 3.5 LDL Cholesterol 54 0 - 129 mg/dL Results for orders placed or performed during the hospital encounter of 01/08/24 LIPID PANEL WITH DIRECT LDL IF TG IS HIGH Result Value Ref Range Triglycerides 102 <=174 mg/dL Cholesterol 107 <200 mg/dL HDL Cholesterol 41 >39 mg/dL Non-HDL Cholesterol 66 <=159 mg/dL LDL Cholesterol 46 <=129 mg/dL Results for orders placed or performed in visit on 09/05/23 LIPID PANEL WITH DIRECT LDL IF TG IS HIGH Result Value Ref Range Triglycerides 108 <=174 mg/dL Cholesterol 111 <200 mg/dL HDL Cholesterol 35 (L) >39 mg/dL Non-HDL Cholesterol 76 <=159 mg/dL LDL Cholesterol 54 <=129 mg/dL Results for orders placed or performed in visit on 08/06/22 LIPID PANEL WITH DIRECT LDL IF TG IS HIGH Result Value Ref Range Triglycerides 190 (H) <=174 mg/dL Cholesterol 126 <200 mg/dL HDL Cholesterol 32 (L) >39 mg/dL Non-HDL Cholesterol 94 <=159 mg/dL Assessment/Plan Russ presents to clinic today and the role of the [facility] pharmacist was introduced. I reviewed hismedication history. He was educated on the disease state of heart failure. I explained the importance of optimizing his GDMT (improve symptoms for better quality of life, decrease hospitalizations and live longer). Heart Failure Classification: HFrEF Most Recent EF: 20% 01/23/24 General Assessment 1. HFrEF -ischemic cardiomyopathy 2. ASCVD -cardiac arrest on 01/08/24: [place] [facility] Severe 3Vessel Dx and sever . S/P PCI x 6 stents.D/C 01/16/24 3. Controlled Type 2 Diabetes -HbA1c target <8% -Jardiance stopped due to recent septic UTI -Would avoid GLP1 for now due to significant weight loss 4. Controlled Hyperlipidemia -Target LDL <55 5. Hx Septic UTI -Admission in January treated with abx -Mejia catheter removed -Jardiance stopped 6. Aortic valve stenosis Education Provided - Limit sodium to no more than 2,000 mg daily - Limit fluids to 64 oz daily - Weights daily. For weight gain 3 lbs or more within 24 hours or 5 lbs in 3 days, call the HF Clinic - Contact clinic if any increase in symptoms such as lightheadedness, dizziness, increase in shortness of breath, extreme fatigue, etc. Recommendations - Beta-Bry: Increase Metoprolol Er 50 mg QD - Currently Titrating - ACEi/ARB/ARNI: Continue Entresto 24-26 mg 1/2 tab BID (limited due to potassium) - Currently Titrating Max Tolerated - MRA: Will not start due to elevated K - - SGLT2i: Discontinue Jardinace--recent sepetic UTI - Contraindicated/Not Tolerated Labs Due: CBC and iron end of Feb to trend Hbg Follow-Up: 1.[address] Velasquez 03/03/2024 I spent a total of Greater than 55 mins (exact time 56 mins) on the date of service in preparation,delivery, and documentation of the care provided to Russ Love excluding any time spent in theperformance of separately billed services or time spent by another provider/QHP. Rosi Martel [facility] Clinical Pharmacist - Concrete Buildings Assembler Medication Therapy Management Clinic 02/24/2024 - 3:02 PM * Nadiya Watkins RN - 02/24/2024 3:00 PM EST Images from the original note were not included. Rounding Machine Operator: Home Weights for review: documented in this encounter Plan of Treatment Upcoming Encounters Date Type Department Care Team (Late st Contact Info) Description 03/02/2024 2:30 PM EST Imaging Radiology [facility] [address] [facility] [place] [address] 03/03/2024 10:30 AM EST Office Visit Cardiology, [facility] [address] [facility] [place] [address] [facility]iology [place] [address] [facility] [place] [address] 03/03/2024 11:00 AM EST Office Visit Cardiology, [facility] [place] [address] Sonido Velasquez, [address] [place] [address] 03/09/2024 3:00 PM EST Procedure Only Urology, [place] [address] [place] [address] [id number] Katherine Mccormick MD [address] [place] [address] 03/23/2024 1:30 PM EST Cardiac Studies Cardiac Studies [facility], [place] [address] [place] [id number] [place], E[place] [address] [place] [address] 03/23/2024 2:00 PM EST Office Visit Cardiology [facility], [place] [address] [place] [address] Robin Humphrey MD [address] [place] [address] 04/03/2024 9:40 AM EST Office Visit Family Practice, [facility] [address] [place] [id number] Elvis Flores MD [address] [place] [address] 04/15/2024 11:00 AM EST Office Visit Cardiology, [facility] [address] [place] [address] Hayley Vuong IV, MD [address] [place] [address] 11/11/2024 9:30 AM EDT Cardiac Studies Cardiac Studies, [facility] [address] [place] [address] Health Maintenance Due Date Last Done Comments [...] 09/04/2024 09/05/2023, 07/13, 09/14/2021, Additional history exists Depression Screening 02/05/2025 02/06/2024, 09/04/19 24 GFR 02/17/2025 02/18/2024, 01/12, 01/24/2024, Additional history exists DTap/Tdap Vaccines (4 - [...] this encounter Medical Devices Implanted Type Area Seismograph Operator Helper Device Identifier Shelf Expiration Date Model / Serial / Lot Stent Hamilton 2.25x22 [employer] - [id number] Implanted:Qty: 1 on 01/13/2024 by Nelsy Calvillo [place] at [facility] [employer] [place]ASCULAR [id number] 08/28/2026 [id number] UX / / [id number] Stent Hamilton 2.0x18 [employer] - [id number] Implanted:Qty: 1 on 01/13/2024 by Nelsy Calvillo MD at [facility] [employer] [place]ASCULAR [id number] 06/25/2026 [id number] UX / / [id number] Stent Dawit 2.50x15 [employer] - [id number] Implanted:Qty: 1 on 01/13/2024 by Nelsy Calvillo MD at [facility] [employer] [place]ASCULAR 07/22/2026 [id number] UX / / [id number] Stent Hamilton 2.0x12 [employer] - [id number] Implanted:Qty: 1 on 01/13/2024 by Nelsy Calvillo MD at [facility] [employer] [place] VASCULAR [id number] 03/05/2026 [id number] UX / / [id number] Stent Hamilton 2.50x26 [employer] - [id number] Implanted:Qty: 1 on 01/13/2024 by Nelsy Calvillo MD at [facility] [employer] [place] VASCULAR [id number] 09/24/2026 [id number] UX / / [id number] Stent Dawit 2.50x26 [employer] - [id number] Implanted:Qty: 1 on 01/13/2024 by Nelsy Calvillo MD at [facility] [employer] : VASCULAR [id number] 09/24/2026 [id number] UX / / [id number] documented as of this encounter Visit Diagnoses Diagnosis Heart failure with reduced ejection fraction (HFrEF, <= 40%) ([facility])- Primary documented in this encounter Advance Directives * Full Code (Latest Code Status on File) Date Activated Date Inactivated Comments 01/08/2024 10:30 PM 01/16/2024 7:40 PM This order reflects the patients wishes and were consensually agreed upon. Question Answer Comments Discussion of Advance Directives occurred with: Patient Care Teams Company Laborer Relationship Specialty Start Date End Date Elvis Flores MD PCP - General 06/09/1998 documented as of this encounter
--- OUTSIDE RECORDS SUMMARY | 2024-03-02 21:05 | External Medical Summary | Summary of Care ---
Author Name Unknown Organization [facility] Address [address] [place] [address] Phone [phone] Care Team Providers Care Member Service Specialist Name Role Phone Elvis Flores MD Primary Care Provider [phone] Encounter Details Date Type Department Care Team (Late st Contact Info) Description 01/28/2024 New Patient Triage (LEAD PRINTER USE ONLY) [facility], Cardiac Recovery Suite, [facility] [address] [place] [address] Kimberlyn Mukherjee, RN Allergies No known active allergiesdocumented as of this encounter (statuses as of 02/20/2024) Medications ONE TOUCH ULTRA BONUS PACK KITIndications :DM type 2, goal A1c below 7 as directed 1 0 5 Active LANCETS MISCIndication s:DM type 2, goal A1c below 7 once daily 50 11 5 Active VITAMIN D 1000 UNIT PO CAPSIndication [...] Additional Information Patient not taking.Reported on 02/18/2024 glipiZIDE ER 5 MG Oral Tablet Extended Release 24 Hour (Glucotrol XL)Indications :Type 2 diabetes mellitus with hemoglobin A1c goal of less than 8.0% (HCC) TAKE 1 TABLET BY MOUTH EVERY MORNING 90 Tablet 3 4 02/12/19 25 Discontin ued(Medic ation/Dos e Changed) Jardiance 25 MG Oral Tablet (Empagliflozin )Indications:T ype 2 diabetes mellitus with hemoglobin A1c goal of less than 8.0% (HCC) TAKE 1 TABLET BY MOUTH ONCE DAILY 90 Tablet 1 4 02/12/19 25 Discontin ued(Medic ation/Dos e Changed) Metoprolol Succinate ER 25 MG Oral Tablet Extended Release 24 Hour (toPROL XL) Take 1 Tablet by mouth in the morning. 30 Tablet 01/16/2024 2:39 PM EST 4 02/12/19 25 Discontin ued(Refil l) Sacubitril-Shala sartan 24-26 MG Oral Tablet (Entresto) Take 1 Tablet by mouth in the morning and 1 Tablet before bedtime. 60 Tablet 01/16/2024 2:39 PM EST 4 02/12/19 25 Discontin ued(Medic ation/Dos e Changed) Spironolactone 25 MG Oral Tablet (Aldactone) Take one-half (0.5) Tablets by mouth in the morning. 30 Tablet 01/16/2024 2:39 PM EST 4 02/12/19 25 Discontin ued(Medic ation/Dos e Changed) Clopidogrel Bisulfate 75 MG Oral Tablet (pLAVix) Take 1 Tablet by mouth in the morning. 30 Tablet 11 01/16/2024 2:39 PM EST 4 02/12/19 25 Discontin ued(Medic ation/Dos e Changed) Tamsulosin HCl 0.4 MG Oral Capsule (Flomax) Take 1 Capsule by mouth every night at bedtime. 30 Capsule 01/16/2024 2:39 PM EST 4 02/12/19 25 Discontin ued(Medic ation/Dos e Changed) documented as of this encounter (statuses as of 02/20/2024) Active Problems Problem Noted Date Diagnosed Date Cardiomyopathy 02/18/2024 Hematuria, gross 01/28/2024 Presence of external cardiac defibrillator 01/15 S/P primary angioplasty with coronary stent 05/2023 Heart failure with reduced e jection fraction (HFrEF, <= 40%) 01/15/2024 LBBB (left bundle branch block) 01/15/2024 Anemia due to acute blood loss 01/13/2024 Coronary artery disease invo lving yocha dehe coronary artery of yocha dehe heart 01/10/2024 History of cardiac arrest 01/09/2024 [...] as of this encounter (statuses as of 02/20/2024) Resolved Problems Problem Noted Date Diagnosed Date [...] colonoscopy in 2 years High triglycerides 08/21/2006 09/19/201 7 PURE HYPERCHOLESTEROLEM 07/26/200401/11 Overview (01/27/2009): Per Lipid Taxonomy. Syncope 05/29/2004 10/30/2016 Open wound of trunk 03/13/2004 10/31/19 17 SCIATICA, RIGHT 06/11/2001 10/30/2016 ELEV BL PRES W-O HYPERTN 06/11/2001 documented as of this encounter (statuses as of 02/20/2024) Immunizations Name Administration Dates Next Due COVID-19 [...] Antonieta Mejia RN documented in this encounter Progress Notes * Claudia Ware DNP - 02/20/2024 10:06 PM EST Will defer further triage to valve team. Claudia [place], [place] [address] - [place] [facility] * Claudia Ware DNP - 02/06/2024 12:19 PM EST Does patient need to be seen?: Yes Modality: Office visit Urgency: per Discussed care plan with patient or proxy?: Yes Appt is not scheduled until 04/2024. Consider sooner appt and further triage Communicated with patient on Date (mm/dd/yyyy): 01/28/2024 at Time ([facility]): 0720 Claudia Ware DNP, [place] [address] - [place] [facility] * Kimberlyn Mukherjee, RN - 01/28/2024 7:20 AM EST New Patient Triage What is the diagnosis/reason for referral?: Aortic Stenosis Enter order ID here: [id number] Specialty specific documentation: Cardiology Structural Heart Triage - Severe , recent cardiac arrest, multivessel stents. Also has a left bundle branch blockand severe LV systolic dysfunction. Should offer first available [facility] or [facility] if patient is willing to travel RADHA Fuentes Interventional Valve Nurse Navigator documented in this encounter Plan of Treatment Upcoming Encounters Date Type Department Care Team (Late st Contact Info) Description 02/24/2024 3:00 PM EST [facility] [address] [place] [address] [facility] Cardiology [facility] 132 [facility] [place] [address] 03/02/2024 2:30 PM EST Imaging Radiology [address] [facility] [place] [address] 03/03/2024 11:00 AM EST Office Visit Cardiology, [facility] 132 [facility] [place] [address] Sonido Velasquez, 132 [facility] [place] [address] 03/09/2024 3:00 PM EST Procedure Only Urology, [place] [address] [place] [address] Katherine Mccormick MD [address] [place] [address] 03/23/2024 1:30 PM EST Cardiac Studies Cardiac Studies [facility], [place] [address] [place] [address] [place], E[place] [address] [place] [address] 03/23/2024 2:00 PM EST Office Visit Cardiology [facility], [place] [address], [place] [id number] Robin Humphrey MD [address] [place] [address] 04/03/2024 9:40 AM EST Office Visit Family Practice, [facility] [address] [place] [address] Elvis Flores MD [address] [place] [address] 04/15/2024 11:00 AM EST Office Visit Cardiology, [facility] 132 [place] [address] Hayley Vuong IV, MD [address], [place] [address] 11/11/2024 9:30 AM EDT Cardiac Studies Cardiac Studies, [address] [place] [address] Health Maintenance Due Date Last Done Comments [...] this encounter Medical Devices Implanted Type Area Microcomputer Technician Device Identifier Shelf Expiration Date Model / Serial / Lot Stent Dawit 2.25x22 [place] [employer] - [id number] Implanted:Qty: 1 on 01/13/2024 by Nelsy Calvillo MD at [facility] [employer] : VASCULAR [id number] 08/28/2026 [id number] UX / / [id number] Stent Dawit 2.0x18 [place] [employer] - [id number] Implanted:Qty: 1 on 01/13/2024 by Nelsy Calvillo MD at [facility] [employer] : VASCULAR [id number] 06/25/2026 [id number] UX / / [id number] Stent [place] 2.50x15 [employer] [employer] - [id number] Implanted:Qty: 1 on 01/13/2024 by Nelsy Calvillo MD at [facility] [employer] : VASCULAR 07/22/2026 [id number] UX / / [id number] Stent [place]it 2.0x12 [place] [employer] - [id number] Implanted:Qty: 1 on 01/13/2024 by Nelsy Calvillo MD at [facility] [employer] : VASCULAR [id number] 03/05/2026 [id number] UX / / [id number] Stent [place]it 2.50x26 [place] [employer] - [id number] Implanted:Qty: 1 on 01/13/2024 by Nelsy Calvillo MD at [facility] [employer] : VASCULAR [id number] 09/24/2026 [id number] UX / / [id number] Stent [place] 2.50x26 [place] [employer] - [id number] Implanted:Qty: 1 on 01/13/2024 by Nelsy Calvillo MD at [facility] [employer] : VASCULAR [id number] 09/24/2026 [id number] UX / / [id number] documented as of this encounter Advance Directives * Full Code (Latest Code Status on File) Date Activated Date Inactivated Comments 01/08/2024 10:30 PM 01/16/2024 7:40 PM This order reflects the patients wishes and were consensually agreed upon. Question Answer Comments Discussion of Advance Directives occurred with: Patient Care Teams Member Service Specialist Relationship Specialty Start Date End Date Elvis Flores MD PCP - General 06/09/1998 documented as of this encounter
--- OUTSIDE RECORDS SUMMARY | 2024-03-02 21:06 | External Medical Summary ---
Author Name Unknown Address Unknown Organization K09:[facility] [place] [address] Laboratory Report Ordering Provider Test Date Status ISAAK RODRIGUEZ 01/31/2024 06:07:59 Final Observation Date Value Abnormality Reference (Units ) Status WBC, Total 01/31/2024 06:07:59 9.22 4.00-10.8 0 (K/uL) Final RBC 01/31/2024 06:07:59 3.44 4.50-5.25 (M/uL) Final Hemoglobin 01/31/2024 06:07:59 9.7 Below low normal 14 .0-16.8 (g/dL) Final HCT 01/31/2024 06:07:59 31.6 Below low normal 40. 0-48.4 (%) Final MCV 01/31/2024 06:07:59 91.9 82.0-99.5 (fL) Final MCH 01/31/2024 06:07:59 28.2 27.0-34.0 (pg) Final MCHC 01/31/2024 06:07:59 30.7 32.0-36.0 (g/dL) Final RDW 01/31/2024 06:07:59 16.9 11.5-15.5 (%) Final Platelets 01/31/2024 06:07:59 215 140-400 (K /uL) Final MPV 01/31/2024 06:07:59 10.2 6.6-11.1 ( fL) Final Performing Location [facility] [place] [address]
--- OUTSIDE RECORDS SUMMARY | 2024-03-02 21:06 | External Medical Summary | Summary of Care ---
Author Name Unknown Organization [facility] Address [address] [place] [address] Phone [phone] Care Team Providers Care Clothes Wringer Name Role Phone Elvis Flores MD Primary Care Provider [phone] Reason for Referral * Evaluate & Treat - Unlimited Visits (Within 30 days (routine)) - Authorized Specialty Diagnoses / Procedures Referred By Aron reyes Referred To Contact Cardiovascular Medicine Diagnoses Nonrheumatic aortic valve stenosis LBBB (left bundle branch block) Cardiac arrest (HCC) Sonido Vleasquez DO [address] [place] [address] Phone: tel: fax: Referral ID Status Reason Start Date Expiration Date Visits Requested Visits Authorized [id number] Authorized Specialty Services Required [phone] Question Answer Referral Priority Within 30 days (routine) Where should this appointment be scheduled? [facility] Comments Severe , recent cardiac arrest, multivessel stents. Also has a left bundle branch block and severe LV systolic dysfunction. Reason for Visit * Reason Onset Date Comments Follow Up 01/23/2024 Encounter Details Date Type Department Care Team (Late st Contact Info) Description 01/23/2024 Telephone Cardiology, [facility] [address] [place] [address] Sonido Velasquez DO [address] [place] [address] Follow Up Allergies No known active allergiesdocumented as of this encounter (statuses as of 01/31/2024) Medications ONE TOUCH ULTRA BONUS PACK KITIndications: [...] ONCE DAILY 90 Tablet 1 4 Active Aspirin 81 MG Oral Tablet Chewable Chew and swallow 1 Tablet by mouth in the morning. 30 Tablet 11 01/16/2024 2:39 PM EST 4 Active Amiodarone HCl 200 MG Oral Tablet (Cordarone) Take 1 Tablet by mouth daily with breakfast. 90 Tablet 01/16/2024 2:39 PM EST 4 Active Metoprolol Succinate ER 25 MG Oral Tablet Extended Release 24 Hour (toPROL XL) Take 1 Tablet by mouth in the morning. 30 Tablet 01/16/2024 2:39 PM EST 4 Active Sacubitril-Vals guy 24-26 MG Oral Tablet (Entresto) Take 1 Tablet by mouth in the morning and 1 Tablet before bedtime. 60 Tablet 01/16/2024 2:39 PM EST 4 Active Spironolactone 25 MG Oral Tablet (Aldactone) Take one-half (0.5) Tablets by mouth in the morning. 30 Tablet 01/16/2024 2:39 PM EST 4 Active Clopidogrel Bisulfate 75 MG Oral Tablet (pLAVix) Take 1 Tablet by mouth in the morning. 30 Tablet 11 01/16/2024 2:39 PM EST 4 Active Tamsulosin HCl 0.4 MG Oral Capsule (Flomax) Take 1 Capsule by mouth every night at bedtime. 30 Capsule 01/16/2024 2:39 PM EST 4 Active Nitroglycerin 0.4 MG Sublingual Tablet Sublingual (Nitrostat) Dissolve 1 tablet under the tongue every 5 minutes as needed for chest pain, for up to 3 doses in 15 minutes and call 911 or seek medical attention if no relief. 75 Tablet 3 01/16/2024 2:39 PM EST Active documented as of this encounter (statuses as of 01/31/2024) Active Problems Problem Noted Date Diagnosed Date Hematuria, gross 01/28/2024 Presence of external cardiac defibrillator 01/15 S/P primary angioplasty with coronary stent 05/2023 Heart failure with reduced e jection fraction (HFrEF, <= 40%) 01/15/2024 LBBB (left bundle branch block) 01/15/2024 Anemia due to acute blood loss 01/13/2024 Coronary artery disease invo lving elem coronary artery of elem heart 01/10/2024 History of cardiac arrest 01/09/2024 [...] as of this encounter (statuses as of 01/31/2024) Resolved Problems Problem Noted Date Diagnosed Date [...] as of this encounter (statuses as of 01/31/2024) Immunizations Name Administration Dates Next Due COVID-19 [...] 10:54 PM EST Antonieta Thomas RN * Do you have difficulty dressing or bathing? (5 years old or older) Answer Date of Assessment Author No 01/08/2024 10:54 PM EST Antonieta Thomas RN * Because of a physical, mental, or emotional condition, do you have difficulty doing errands alone such as visiting a doctors office or shopping? (15 years old or older) Answer Date of Assessment Author No 01/08/2024 10:54 PM EST Antonieta Thomas RN documented as of this encounter Mental Status * Because of a physical, mental, or emotional condition, do you have serious difficulty concentrating, remembering, or making decisions? (5 years old or older) Answer Entry Date Author No 01/08/2024 10:54 PM EST Antonieta Thomas RN documented in this encounter Miscellaneous Notes * Telephone Encounter - Cheyenne Tejada OSA - 01/31/2024 4:11 PM EST Called patient and scheduled appointment as follows: Date: 03/03/2024 Status: [place] Time: 11:00 AM Length: 30 Visit Type: RETURN CARDIOLOGY [06038] * Telephone Encounter - Sonido Velasquez DO - 01/23/2024 12:57 PM EST Patient [facility] post recent admissions to [facility] and [facility]. Severe , recent cardiac arrest, multivessel stents. Also has a left bundle branch block and severe LV systolic dysfunction. Referral to valve clinic placed. Please arrange follow up with me within the next month, OK for image week. Sonido Velasquez DO documented in this encounter Plan of Treatment Upcoming Encounters Date Type Department Care Team (Late st Contact Info) Description 03/02/2024 2:30 PM EST Imaging Radiology [address], [address] [place] [address] 03/03/2024 11:00 AM EST Office Visit Cardiology, [facility] 132 [facility] [place] [address] Sonido Velasquez DO 132 [place] [address] 03/06/2024 9:40 AM EST Office Visit [facility] [address] [place] [address] Elvis Flores MD [address] [place] [address] 03/09/2024 3:00 PM EST Procedure Only Urology, [place] [address] [place] [address] Katherine Mccormick MD [address] [place] [address] 03/23/2024 1:30 PM EST Cardiac Studies Cardiac Studies [facility], [place] [address] [place] [address] [place], Ekg [address] [place] [address] 03/23/2024 2:00 PM EST Office Visit Cardiology [facility], [place] [address] [place] [address] Robin Humphrey MD [address] [place] [address] 04/15/2024 11:00 AM EST Office Visit [facility], [facility] [address] [facility] [address] Hayley Vuong IV, MD [address] [place], [place] [address] 11/11/2024 9:30 AM EDT Cardiac Studies Cardiac Studies, [facility] [address] [facility] [address] Scheduled Referrals Name Type Priority Associated Diagnoses Orde r Schedule VALVE CLINIC REFERRAL OP Referral Within 30 days (routine) Nonrheumatic aortic valve stenosis LBBB (left bundle branch block) Cardiac arrest (HCC) Ordered: 01/23/2024 Health Maintenance Due Date Last Done Comments [...] 01/30/2025 01/31/2024, 01/11, 01/16/2024, Additional history exists DTap/Tdap Vaccines (4 - [...] this encounter Medical Devices Implanted Type Area Emergency Management System Director Device Identifier Shelf Expiration Date Model / Serial / Lot Stent Dawit 2.25x22 [place] [employer] - [id number] Implanted:Qty: 1 on 01/13/2024 by Nelsy Calvillo MD at [facility] [employer] : VASCULAR [id number] 08/28/2026 [id number] UX / / [id number] Stent Dawit 2.0x18 [place] [employer] - [id number] Implanted:Qty: 1 on 01/13/2024 by Nelsy Calvillo MD at [facility] [employer] : VASCULAR [id number] 06/25/2026 [id number] UX / / [id number] Stent Dawit 2.50x15 [place] [employer] - [id number] Implanted:Qty: 1 on 01/13/2024 by Nelsy Calvillo MD at [facility]ARDI[facility] [employer] : VASCULAR 07/22/2026 [id number] / / [id number] Stent Dawit 2.0x12 [place] [employer] - [id number] Implanted:Qty: 1 on 01/13/2024 by Nelsy Calvillo MD at [facility] [employer] : VASCULAR [id number] 03/05/2026 [id number] UX / / [id number] Stent [place] 2.50x26 [place] [employer] - [id number] Implanted:Qty: 1 on 01/13/2024 by Nelsy Calvillo MD at [facility] [employer] : VASCULAR [id number] 09/24/2026 [id number] UX / / [id number] Stent Dawit 2.50x26 [place] [employer] - [id number] Implanted:Qty: 1 on 01/13/2024 by Nelsy Calvillo MD at [facility]ARDI[facility] [employer] : VASCULAR [id number] 09/24/2026 [id number] / / [id number] documented as of this encounter Visit Diagnoses Diagnosis Nonrheumatic aortic valve stenosis- Primary Aortic valve disorders LBBB (left bundle branch block) Other left bundle branch block Cardiac arrest (HCC) Cardiac arrest documented in this encounter Advance Directives * Full Code (Latest Code Status on File) Date Activated Date Inactivated Comments 01/08/2024 10:30 PM 01/16/2024 7:40 PM This order reflects the patients wishes and were consensually agreed upon. Question Answer Comments Discussion of Advance Directives occurred with: Patient Care Teams Clothes Wringer Relationship Specialty Start Date End Date Elvis Flores MD PCP - General 06/09/1998 documented as of this encounter
--- OUTSIDE RECORDS SUMMARY | 2024-03-02 21:06 | External Medical Summary | Summary of Care ---
Author Name Unknown Organization [facility] Address [address] [place] [address] Phone [phone] Care Team Providers Care Photographer Scientific Name Role Phone Elvis Flores MD Primary Care Provider [phone] Encounter Details Date Type Department Care Team (Late st Contact Info) Description 01/23/2024 Result Scan Unspecified Department Sonido Velasquez, DO [address] [place] [address] <No scans attached> Allergies No known active allergiesdocumented as of this encounter (statuses as of 01/28/2024) Medications ONE TOUCH ULTRA BONUS PACK KITIndications: [...] as of this encounter (statuses as of 01/28/2024) Active Problems Problem Noted Date Diagnosed Date Presence of external cardiac defibrillator 01/15 S/P primary angioplasty with coronary stent 05/2023 Heart failure with reduced e jection fraction (HFrEF, <= 40%) 01/15/2024 LBBB (left bundle branch block) 01/15/2024 Anemia due to acute blood loss 01/13/2024 Coronary artery disease invo lving wr[place]ell coronary artery of wrangell heart 01/10/2024 History of cardiac arrest 01/09/2024 [...] as of this encounter (statuses as of 01/28/2024) Resolved Problems Problem Noted Date Diagnosed Date Resolved Date Cardiac arrest with ventricular fibrillation 4 01/16/2024 Gross hematuria 01/10/2024 01/15/2024 Encounter for [...] as of this encounter (statuses as of 01/28/2024) Immunizations Name Administration Dates Next Due COVID-19 [...] Description 03/02/2024 2:30 PM EST Imaging Radiology [address], [address] [place] [address] 03/06/2024 9:40 AM EST Office Visit [facility] [place] [facility] [address] [facility] [address] [place] [address] Elvis Flores MD [address] [facility] [place] [address] 03/09/2024 3:00 PM EST Procedure Only Urology, [place] [address] [place] [address] Katherine Mccormick MD [address] [place] [facility] [place] [address] 11/11/2024 9:30 AM EDT Cardiac Studies Cardiac Studies, [facility] 132 [facility] [place] [address] Health Maintenance Due Date Last Done Comments [...] 09/05/2023, 07/13, 09/14/2021, Additional history exists GFR 01/23/2025 01/24/2024, 12/0 06/2023, 01/15/2024, Additional history exists DTap/Tdap Vaccines (4 - [...] this encounter Medical Devices Implanted Type Area Billing Spec Device Identifier Shelf Expiration Date Model / Serial / Lot Stent Dawit 2.25x22 [employer] - [id number] Implanted:Qty: 1 on 01/13/2024 by Nelsy Calvillo MD at [facility] [employer] : VASCULAR [id number] 08/28/2026 [id number] / / [id number] Stent Dawit 2.0x18 [employer] - [id number] Implanted:Qty: 1 on 01/13/2024 by Nelsy Calvillo MD at [facility] [employer] : VASCULAR [id number] 06/25/2026 [id number] / / [id number] Stent [place] 2.50x15 [employer] - [id number] Implanted:Qty: 1 on 01/13/2024 by Nelsy Calvillo MD at [facility] [employer] : VASCULAR 07/22/2026 [id number] / / [id number] Stent [place] 2.0x12 [employer] - [id number] Implanted:Qty: 1 on 01/13/2024 by Nelsy Calvillo MD at [facility] [employer] : VASCULAR [id number] 03/05/2026 [id number] / / [id number] Stent Dawit 2.50x26 [employer] - [id number] Implanted:Qty: 1 on 01/13/2024 by Nelsy Calvillo MD at [facility] [employer] : VASCULAR [id number] 09/24/2026 [id number] UX / / [id number] Stent [place]it 2.50x26 [employer] - [id number] Implanted:Qty: 1 on 01/13/2024 by Nelsy Calvillo MD at [facility] [employer] : VASCULAR [id number] 09/24/2026 [id number] / / [id number] documented as of this encounter Procedures Procedure Name Priority Date/Time Associated Diagnosis Comments ECHOCARDIOLOGY SCANNED RESULT 01/23/2024 documented in this encounter Results * ECHOCARDIOLOGY SCANNED RESULT (01/23/2024) 01/23/2024 us Sonido Velasquez DO ECHOCARDIOLOGY Final Result documented in this encounter Advance Directives * Full Code (Latest Code Status on File) Date Activated Date Inactivated Comments 01/08/2024 10:30 PM 01/16/2024 7:40 PM This order reflects the patients wishes and were consensually agreed upon. Question Answer Comments Discussion of Advance Directives occurred with: Patient Care Teams Photographer Scientific Relationship Specialty Start Date End Date Elvis Flores MD [address] [place] [address] PCP - General 06/09/1998 documented as of this encounter
--- OUTSIDE RECORDS SUMMARY | 2024-03-02 21:06 | External Medical Summary | Summary of Care ---
Author Name Unknown Organization [facility] Address [address] [place] [address] Phone [phone] Care Team Providers Care Raw Stock Dyeing Machine Tender Name Role Phone Elvis Flores MD Primary Care Provider [phone] Reason for Visit * Reason Comments Congestive Heart Failure * Evaluate & Treat - Unlimited Visits (Within 3 days (urgent)) - Authorized Specialty Diagnoses / Procedures Referred By Contac t Referred To Contact Pharmacist / Pharmacy Diagnoses Acute on chronic heart failure with reduced ejection fraction (HFrEF, <= 40%) ([facility]) Nadiya Watkins RN [address] [place] [address] Phone: tel: fax: Referral ID Status Reason Start Date Expiration Date Visits Requested Visits Authorized [id number] Authorized Specialty Services Required 4 08/04/2024 99 99 Encounter Details Date Type Department Care Team (Late st Contact Info) Description 02/13/2024 2:00 PM EST Office Visit Cardiology, [facility] [address] [place] [id number] [facility] Cardiology [facility] [address] [address] Heart failure with reduced ejection fraction (HFrEF, <= 40%) ([facility])*; Type 2 diabetes mellitus with hemoglobin A1c goal of less than 8.0% ([facility]) Allergies No known active allergiesdocumented as of this encounter (statuses as of 02/13/2024) Medications ONE TOUCH ULTRA BONUS PACK KITIndications [...] 4 2:39 PM EST 01/16/20 24 Active Clopidogrel Bisulfate 75 MG Oral Tablet (Plavix)Indica tions:Coronary artery disease of [place] artery of [place] heart with stable angina pectoris (HCC) Take 1 Tablet by mouth in the morning. 30 Tablet 6 02/06/20 24 Active Metoprolol Succinate ER 25 MG Oral Tablet Extended Release 24 Hour (toPROL XL) Take 1 Tablet by mouth in the morning. 30 Tablet 5 02/12/19 25 Active glipiZIDE ER 5 MG Oral Tablet [...] daily 15 Tablet 5 02/12/19 25 Active glipiZIDE ER 5 MG Oral Tablet Extended Release 24 Hour (Glucotrol XL)Indications :Type 2 diabetes mellitus with hemoglobin A1c goal of less than 8.0% (HCC) TAKE 1 TABLET BY MOUTH EVERY MORNING 90 Tablet 3 11/07/19 24 025 Discontinued(Me dication/Dose Changed) Jardiance 25 MG Oral Tablet (Empagliflozin )Indications:T ype 2 diabetes mellitus with hemoglobin A1c goal of less than 8.0% (HCC) TAKE 1 TABLET BY MOUTH ONCE DAILY 90 Tablet 1 11/26/19 24 025 Discontinued(Me dication/Dose Changed) Metoprolol Succinate ER 25 MG Oral Tablet Extended Release 24 Hour (toPROL XL) Take 1 Tablet by mouth in the morning. 30 Tablet 4 2:39 PM EST 01/17/20 24 025 Discontinued(Re fill) Sacubitril-Shala sartan 24-26 MG Oral Tablet (Entresto) Take 1 Tablet by mouth in the morning and 1 Tablet before bedtime. 60 Tablet 4 2:39 PM EST 01/16/20 24 025 Discontinued(Me dication/Dose Changed) Spironolactone 25 MG Oral Tablet (Aldactone) Take one-half (0.5) Tablets by mouth in the morning. 30 Tablet 4 2:39 PM EST 01/17/20 24 025 Discontinued(Me dication/Dose Changed) Clopidogrel Bisulfate 75 MG Oral Tablet (pLAVix) Take 1 Tablet by mouth in the morning. 30 Tablet 11 4 2:39 PM EST 01/17/20 24 025 Discontinued(Me dication/Dose Changed) Tamsulosin HCl 0.4 MG Oral Capsule (Flomax) Take 1 Capsule by mouth every night at bedtime. 30 Capsule 4 2:39 PM EST 01/16/20 24 025 Discontinued(Me dication/Dose Changed) glipiZIDE ER 5 MG Oral Tablet Extended Release 24 Hour (Glucotrol XL)Indications :Type 2 diabetes mellitus with hemoglobin A1c goal of less than 8.0% (HCC) Take 1 Tablet by mouth in the morning. In the morning.. 30 Tablet 5 02/12/19 25 025 Discontinued documented as of this encounter (statuses as of 02/13/2024) Active Problems Problem Noted Date Diagnosed Date Hematuria, gross 01/28/2024 Presence of external cardiac defibrillator 01/15 S/P primary angioplasty with coronary stent 05/2023 Heart failure with reduced e jection fraction (HFrEF, <= 40%) 01/15/2024 LBBB (left bundle branch block) 01/15/2024 Anemia due to acute blood loss 01/13/2024 Coronary artery disease invo lving [place] coronary artery of [place] heart 01/10/2024 History of cardiac arrest 01/09/2024 [...] as of this encounter (statuses as of 02/13/2024) Resolved Problems Problem Noted Date Diagnosed Date [...] as of this encounter (statuses as of 02/13/2024) Immunizations Name Administration Dates Next Due COVID-19 [...] Sign Reading Time Taken Comments Blood Pressure 98/68 02/13/2024 2:15 PM EST Pulse 81 02/13/2024 2:15 PM EST Temperature - - Respiratory Rate - - Oxygen Saturation - - Inhaled Oxygen Concentration - - Weight 68.1 kg (150 lb 3.2 oz) 02/13/2024 2:15 P M EST Height - - Body Mass Index 21.25 01/08/2024 10:30 PM EST documented in this [...] Patient Instructions * Patient Instructions* Rosi Tyler, [facility] - 02/13/2024 2:41 PM EST START Entresto 24-26 mg HALF tablet daily x3 days, then increase to 1/2 tablet twice daily if feeling okay. STOP Entresto if you feel dizzy/lightheaded or have low blood pressure <90 (top number) and callme Lab work in 1 week around 02/19 or 02/20 STOP Jardiance RESTART Glipizide Xl 5 mg daily Test your blood sugar every day at home and write down. Take to Dr Flores Test weight every day and right now Test blood pressure daily and write down Phone number: [phone] Rosi Lenz D Clinical [facility] Pharmacist Cardiology 02/13/2024,2:39 PM documented in this encounter Progress Notes * Rosi Tyler RPh - 02/13/2024 1:50 PM EST Images from the original note were not included. Medication Therapy Disease Management - Heart Failure History of Presenting Illness This visit occurred in person. Russ Love, identified by name and date of , is a 83 year old male presents to the Heart Failure [facility] for initial visit. Chief Complaint Patient presents with Congestive Heart Failure History HPI Patient presents in wheelchair with today. Patient with cardiac arrest on 01/08/24: Tx to [facility] s/p CATH Severe 3Vessel Dx and sever [...] on 01/16. 01/22 - 03/06/23: [facility] Since coming home from [facility], he feels weak. He is able to walk on his own (using a walker) butLife Vest makes it hard to walk. They removed the mejia catheter. Reports frequent urination but denies any burning. Wearing diaper. Wants to go to [facility] in the spring to visit grandchild. Follows with heart failure case liner Nadiya. Body port scale ordered but patient has not received. Patient is currently on Amiodarone, unsure of indication. Seeing Dr Velasquez 03/03/23 for hospital discharge follow up. Seeing PCP next week. Thankfully denies any edema, shortness of breath, or chest pain. ICD: Life vest-wearing during visit Current Medications Beta-Bry: Metoprolol Er 25 mg QD ACEi/ARB/ARNI: Entresto 24-26 mg BID---NOT TAKING MRA: Spironolactone 12.5 mg QD---NOT TAKING SGLT2i: Jardiance 25 mg QD Other: Plavix 75 mg QD; ASA 81 [...] Vitals BP Readings from Last 3 Encounters: 01/16/24 97/74 12/20/23 142/82 09/04/23 134/60 Pulse Readings from Last 3 Encounters: 01/16/24 71 12/20/23 70 09/04/23 78 Wt Readings from Last 3 Encounters: 01/16/24 80.3 kg (177 lb 1.6 oz) 12/20/23 86.2 kg (190 lb) 09/04/23 82.8 kg (182 lb 9.6 oz) Patient Reported Vitals Has scale at home but has not been recording home weights. Reviewed importance of daily weights at home. He will be getting a transmitting scale. He does have a home BP machine and will start monitoring vitals at home. Of note, patient has lost about 20-30 lbs since beginning of January. He does report a protein shake daily. Patient Reported Blood Glucose Blood sugars have running in 200s since discharge. Denies any hypoglycemia. Last EF LEFT VENTRICULAR EJECTION FRACTION (%) Date Value 01/10/2024 30 11/12/2023 40 09/12/2022 50 Labs HEMOGLOBIN A1C - [facility] Date/Time Value Ref Range Status 01/08/2024 10:44 [...] in vivo glycation rates. Recent Labs Units 01/31/24 0607 01/24/24 0614 01/16/24 0537 BUN - [facility] mg/dL 18 10 28* CREATININE - [facility] mg/dL 1.1 0.7 1.0 ESTIMATED GLOMERULAR FILTRATION RATE - [facility] mL/min 65 >90 74 Serum creatinine: 1.1 mg/dL 01/31/24 0607 Estimated creatinine clearance: 52.5 mL/min Recent Labs Units 01/31/24 0607 01/24/24 0614 01/16/24 0537 POTASSIUM - [facility] mmol/L 4.6 4.7 4.5 Recent Labs Units 01/31/24 0607 01/24/24 0614 01/16/24 0537 CO2 - [facility] mmol/L 21* 20* 21* Results for orders placed or performed in [...] clinic today and the role of the [facility] pharmacist was introduced. I reviewed hismedication history. He was educated on the disease state of heart failure. I explained the importance of optimizing his GDMT (improve symptoms for better quality of life, decrease hospitalizations and live longer). Heart Failure Classification: HFrEF Most Recent EF: 20% 01/23/24 General Assessment We spent a large part of todays visit cleaning up his medication list post discharge and doing a complete medication reconciliation. Updated medication list printed for patient 1. HFrEF -ischemic cardiomyopathy 2. ASCVD -cardiac arrest on 01/08/24: Tx to [facility] s/p CATH Severe 3Vessel Dx and sever . S/P PCI x 6 stents.D/C 01/16/24 3. Controlled Type 2 Diabetes -HbA1c target <8% -Stopping Jardiance due to recent septic UTI -Restarting Glipizide until pt can see PCP next week for further discussion -Would avoid GLP1 for now due to significant weight loss 4. Controlled Hyperlipidemia -Target LDL <55 5. Hx Septic UTI -Admission in January treated with abx -Mejia catheter removed 6. Aortic valve stenosis Education Provided - [...] breath, extreme fatigue, etc. Recommendations - Beta-Bry: Continue Metoprolol Er 25 mg QD - Currently Titrating - ACEi/ARB/ARNI: START Entresto 24-26 mg 1/2 tab daily x3 days, then increase to 1/2 tablet BID - Currently Titrating - MRA: Consider starting in future depending on blood pressure - - SGLT2i: Discontinue Jardinace--recent sepetic UTI - Contraindicated/Not Tolerated Labs Due: CBC 1 month to trend Hbg; BMP 1 week Follow-Up: 1.5 weeks in office 03/03/2024 I spent a total of Greater than 55 mins (exact time 56 mins) on the date of service in preparation,delivery, and documentation of the care provided to Russ Love excluding any time spent in theperformance of separately billed services or time spent by another provider/QHP. Rosi Martel [facility] Clinical Pharmacist - Manager Process Medication Therapy Management Clinic 02/13/2024 - 1:52 PM documented in this encounter Plan of Treatment Upcoming Encounters Date Type Department Care Team (Late st Contact Info) Description 02/18/2024 11:20 AM EST [facility] [address] [phone] Elvis Flores MD [address] [address] 02/20/2024 3:00 PM EST Laboratory Laboratory, [facility] [address] [phone] [facility] [address] [address] 02/24/2024 3:00 PM EST Office Visit Cardiology, [facility] [address] [address] [facility] Cardiology [facility] [address] [address] 03/02/2024 2:30 PM EST Imaging Radiology [address] [address] 03/03/2024 11:00 AM EST Office Visit Cardiology, [facility] [address] [facility] [place] [address] Sonido Velasquez DO [address] [facility] [place] [address] 03/06/2024 9:40 AM EST Office Visit [facility] [address] [place] [phone] Elvis Flores MD [address] [place] [address] 03/09/2024 3:00 PM EST Procedure Only Urology, [place] [address] [place] [address] Katherine Mccormick MD [address] [place] [address] 03/23/2024 1:30 PM EST Cardiac Studies [facility] Studies [facility] [place] [address] [place] [address] [place], [facility] [address] [place] [address] 03/23/2024 2:00 PM EST Office Visit Cardiology [facility] [place] [address] [place] [address] Robin Humphrey MD [address] [place] [address] 04/15/2024 11:00 AM EST Office Visit Cardiology, [facility] [address] [facility] [place] [address] Hayley Vuong IV, MD [address], [place] [id number] 11/11/2024 9:30 AM EDT Cardiac Studies Cardiac Studies, [facility] [address] [place] [address] Scheduled Orders Name Type Priority Associated Diagnoses Orde r Schedule BASIC METABOLIC PANEL Lab Routine Heart failure with reduced ejection fraction (HFrEF, <= 40%) ([facility]) Expected: 02/20/2024, Expires: 02/12/2025 Health Maintenance Due Date Last Done Comments [...] this encounter Medical Devices Implanted Type Area Automatic Oven Operator Device Identifier Shelf Expiration Date Model / Serial / Lot Stent Daw[place] 2.25x22 [place] [employer] - [id number] Implanted:Qty: 1 on 01/13/2024 by Nelsy Calvillo MD at [facility] [employer] : VASCULAR [id number] 08/28/2026 [id number] UX / / [id number] Stent [place] 2.0x18 [place] [employer] - [id number] Implanted:Qty: 1 on 01/13/2024 by Nelsy Calvillo MD at [facility] [employer] : VASCULAR [id number] 06/25/2026 [id number] UX / / [id number] Stent [place] 2.50x15 [place] [employer] - [id number] Implanted:Qty: 1 on 01/13/2024 by Nelsy Calvillo MD at [facility] [employer] : VASCULAR 07/22/2026 [id number] UX / / [id number] Stent [place] 2.0x12 [place] [employer] - [id number] Implanted:Qty: 1 on 01/13/2024 by Nelsy Calvillo MD at [facility] [employer] : VASCULAR [id number] 03/05/2026 [id number] UX / / [id number] Stent [place] 2.50x26 [place] [employer] - [id number] Implanted:Qty: 1 on 01/13/2024 by Nelsy Calvillo MD at [facility] [employer] : VASCULAR [id number] 09/24/2026 [id number] UX / / [id number] Stent Dawit 2.50x26 [place] [employer] - [id number] Implanted:Qty: 1 on 01/13/2024 by Nelsy Calvillo MD at [facility] [employer] : VASCULAR [id number] 09/24/2026 [id number] UX / / [id number] documented as of this encounter Visit Diagnoses Diagnosis Heart failure with reduced ejection fraction (HFrEF, <= 40%) (HCC)- Primary Type 2 diabetes mellitus with hemoglobin A1c goal of less than 8.0% (HCC) documented in this encounter Advance Directives * Full Code (Latest Code Status on File) Date Activated Date Inactivated Comments 01/08/2024 10:30 PM 01/16/2024 7:40 PM This order reflects the patients wishes and were consensually agreed upon. Question Answer Comments Discussion of Advance Directives occurred with: Patient Care Teams Raw Stock Dyeing Machine Tender Relationship Specialty Start Date End Date Elvis Flores MD PCP - General 06/09/1998 documented as of this encounter
--- OUTSIDE RECORDS SUMMARY | 2024-03-02 21:06 | External Medical Summary ---
Author Name Unknown Address Unknown Organization K09:[facility] [place] [place] [address] Laboratory Report Ordering Provider Test Date Status ISAAK RODRIGUEZ 01/31/2024 06:07:59 Final Observation Date Value Abnormality Reference (Units ) Status BUN 01/31/2024 06:07:59 18 6-20 (mg/dL) Final Creatinine 01/31/2024 06:07:59 1.1 0.6-1.2 (mg/dL) Final Glomerular filtration rate/1.73 sq M.predicted [Volume Rate/Area] in Serum, Plasma or Blood by Creatinine-based formula (CKD-EPI) 01/31/2024 06:07:59 65 >=60 (mL/min) Final eGFR is calculated based on the CKD-EPI 2020 equation. Sodium 01/31/2024 06:07:59 138 135-146 (m mol/L) Final Potassium 01/31/2024 06:07:59 4.6 3.5-5.1 (m mol/L) Final Cl 01/31/2024 06:07:59 102 98-107 (mm ol/L) Final CO2 01/31/2024 06:07:59 21 Below low normal 22- 32 (mmol/L) Final Anion gap 01/31/2024 06:07:59 15 7-15 (mmol /L) Final Glucose 01/31/2024 06:07:59 112 70-120 (mg /dL) Final Calcium 01/31/2024 06:07:59 8.7 8.4-10.2 ( mg/dL) Final Performing Location [facility] [place] [address]
--- OUTSIDE RECORDS SUMMARY | 2024-03-02 21:06 | External Medical Summary | Summary of Care ---
Author Name Unknown Organization [facility] Address [address] [place] [address] Phone [phone] Care Team Providers Care Grocery Associate Name Role Phone Elvis Flores MD Primary Care Provider [phone] Reason for Referral * Evaluate & Treat - Unlimited Visits (Within 30 days (routine)) - Authorized Specialty Diagnoses / Procedures Referred By Aron reyes Referred To Contact Cardiovascular Medicine Diagnoses Nonrheumatic aortic valve stenosis LBBB (left bundle branch block) Cardiac arrest (HCC) Sonido Velasquez DO [address] [place] [address] Phone: tel: fax: Referral ID Status Reason Start Date Expiration Date Visits Requested Visits Authorized [id number] Authorized Specialty Services Required 4 999 999 [...] st Contact Info) Description 01/23/2024 Telephone Cardiology, [facility] [address] [place] [address] Sonido Velasquez DO [address] [facility] [place] [address] Follow Up Allergies No known active allergiesdocumented as of this encounter (statuses as of 01/30/2024) Medications ONE TOUCH ULTRA BONUS PACK KITIndications: [...] as of this encounter (statuses as of 01/30/2024) Active Problems Problem Noted Date Diagnosed Date Hematuria, gross 01/28/2024 Presence of external cardiac defibrillator 01/15 S/P primary angioplasty with coronary stent 05/2023 Heart failure with reduced e jection fraction (HFrEF, <= 40%) 01/15/2024 LBBB (left bundle branch block) 01/15/2024 Anemia due to acute blood loss 01/13/2024 Coronary artery disease invo lving [place] coronary artery of [place] heart 01/10/2024 History of cardiac arrest 01/09/2024 [...] as of this encounter (statuses as of 01/30/2024) Resolved Problems Problem Noted Date Diagnosed Date [...] as of this encounter (statuses as of 01/30/2024) Immunizations Name Administration Dates Next Due COVID-19 [...] Assessment Author No 01/08/2024 10:54 PM EST Vanluvan ee, Antonieta C, RN * Do you have difficulty dressing [...] 01/23/2024 12:57 PM EST [facility]. Severe , recent cardiac arrest, multivessel stents. [...] Description 03/02/2024 2:30 PM EST Imaging Radiology [facility] [address] [facility] [place] [address] 03/06/2024 9:40 AM EST [facility] [address] [phone] Elvis Flores MD [address] [address] 03/09/2024 3:00 PM EST Procedure Only Urology, [place] [address] [facility] [place] [address] Katherine Mccormick MD [address] [place] [address] 03/23/2024 1:30 PM EST Cardiac Studies [facility] Studies [facility] [address] [place] [address] [place], [facility] [address] [place] [address] 03/23/2024 2:00 PM EST Office Visit Cardiology [facility] [address] [place] [address] Robin Humphrey MD [address], [place] [id number] 04/15/2024 11:00 AM EST Office Visit Cardiology, [facility] [address] [place] [address] Hayley Vuong IV, MD [address] [place] [address] 11/11/2024 9:30 AM EDT Cardiac Studies Cardiac Studies, [facility] [address] [place] [address] Scheduled Referrals Name Type Priority Associated Diagnoses [...] 09/14/2021, Additional history exists GFR 01/23/2025 01/24/2024, 06/2023, 01/15/2024, Additional history exists DTap/Tdap Vaccines [...] this encounter Medical Devices Implanted Type Area Roving Carrier Device Identifier Shelf Expiration Date Model / Serial / Lot Stent [place] 2.25x22 [place] [facility] - [id number] Implanted:Qty: 1 on 01/13/2024 by Nelsy Calvillo MD at [facility] [employer] : VASCULAR [id number] 08/28/2026 [id number] UX / / [id number] Stent [place] 2.0x18 [place] [facility] - [id number] Implanted:Qty: 1 on 01/13/2024 by Nelsy Calvillo MD at [facility] [employer] : VASCULAR [id number] 06/25/2026 [id number] UX / / [id number] Stent [place] 2.50x15 [place] [facility] - [id number] Implanted:Qty: 1 on 01/13/2024 by Nelsy Calvillo MD at [facility] [employer] : VASCULAR 07/22/2026 [id number] UX / / [id number] Stent Dawit 2.0x12 [place] [facility] - [id number] Implanted:Qty: 1 on 01/13/2024 by Nelsy Calvillo MD at [facility] [employer] : VASCULAR [id number] 03/05/2026 [id number] UX / / [id number] Stent Dawit 2.50x26 [place] [facility] - [id number] Implanted:Qty: 1 on 01/13/2024 by Nelsy Calvillo MD at [facility] [employer] : VASCULAR [id number] 09/24/2026 [id number] UX / / [id number] Stent Dawit 2.50x26 [place] [facility] - [id number] Implanted:Qty: 1 on 01/13/2024 by Nelsy Calvillo MD at [facility] [employer] : VASCULAR [id number] 09/24/2026 [id number] UX / / [id number] documented as of this encounter Visit Diagnoses [...] Advance Directives occurred with: Patient Care Teams Grocery Associate Relationship Specialty Start Date End Date Elvis Flores MD PCP - General 06/09/1998 documented as of this encounter
--- OUTSIDE RECORDS SUMMARY | 2024-03-02 21:06 | External Medical Summary | Summary of Care ---
Author Name Unknown Organization [facility] Address [address] [place] [address] Phone [phone] Care Team Providers Care Fishing Line Winding Machine Operator Name Role Phone Elvis Flores MD Primary Care Provider [phone] Encounter Details Date Type Department Care Team (Late st Contact Info) Description 01/28/2024 New Patient Triage (CLINICAL SAFETY SPECIALIST USE ONLY) [facility], Cardiac Recovery Suite, [facility] [address] [place] [address] Kimberlyn Mukherjee, RN Allergies No [...] loss 01/13/2024 Coronary artery disease invo lving [place] coronary artery of [place] heart 01/10/2024 History of cardiac arrest 01/09/2024 [...] documented in this encounter Progress Notes * Kimberlyn Mukherjee RN - 01/28/2024 7:20 AM EST New Patient Triage What is the diagnosis/reason for referral?: Aortic Stenosis Enter order ID here: [id number] Specialty specific documentation: Cardiology Structural Heart Triage - Severe , recent cardiac arrest, multivessel stents. Also has a left bundle branch blockand severe LV systolic dysfunction. Should offer first available [facility] valve clinic or [facility] if patient is willing to travel RADHA Fuentes Interventional Valve Nurse Navigator documented in this encounter Plan of Treatment Upcoming Encounters Date Type Department Care Team (Late st Contact Info) Description 03/02/2024 2:30 PM EST Imaging Radiology [address] [place] [address] 03/06/2024 9:40 AM EST Office Visit [facility] [address] [facility] [place] [phone] Elvis Flores MD [address] [place] [address] 03/09/2024 3:00 PM EST Procedure Only Urology, [place] [address] [place] [address] Katherine Mccormick MD [address] [place] [address] 11/11/2024 9:30 AM EDT Cardiac Studies Cardiac Studies, [facility] [address] [place] [address] Health Maintenance Due Date Last Done Comments [...] this encounter Medical Devices Implanted Type Area Deposition Reporter Device Identifier Shelf Expiration Date Model / Serial / Lot Stent [place] 2.25x22 Britt [employer] - [id number] Implanted:Qty: 1 on 01/13/2024 by Nelsy Calvillo MD at [facility] [employer] : VASCULAR [id number] 08/28/2026 [id number] / / [id number] Stent [place] 2.0x18 [employer] - [id number] Implanted:Qty: 1 on 01/13/2024 by Nelsy Calvillo MD at [facility] [employer] : VASCULAR [id number] 06/25/2026 [id number] UX / / [id number] Stent [place] 2.50x15 Britt Rx - [id number] Implanted:Qty: 1 on 01/13/2024 by Nelsy Calvillo MD at [facility] [employer] : VASCULAR 07/22/2026 [id number] / / [id number] Stent [place] 2.0x12 Britt Rx - [id number] Implanted:Qty: 1 on 01/13/2024 by Nelsy Calvillo MD at [facility] [employer] : VASCULAR [id number] 03/05/2026 [id number] UX / / [id number] Stent [place] 2.50x26 Britt Rx - [id number] Implanted:Qty: 1 on 01/13/2024 by Nelsy Calvillo MD at [facility] [employer] : VASCULAR [id number] 09/24/2026 [id number] UX / / [id number] Stent [place] 2.50x26 Britt Rx - [id number] Implanted:Qty: 1 on 01/13/2024 by Nelsy Calvillo MD at [facility] [employer] : VASCULAR [id number] 09/24/2026 [id number] UX / / [id number] documented as of this encounter Advance Directives * Full Code (Latest Code Status on File) Date Activated Date Inactivated Comments 01/08/2024 10:30 PM 01/16/2024 7:40 PM This order reflects the patients wishes and were consensually agreed upon. Question Answer Comments Discussion of Advance Directives occurred with: Patient Care Teams Fishing Line Winding Machine Operator Relationship Specialty Start Date End Date Elvis Flores MD [address] [place] [address] PCP - General 06/09/1998 documented as of this encounter
--- OUTSIDE RECORDS SUMMARY | 2024-03-02 21:06 | External Medical Summary | Summary of Care ---
Author Name Unknown Organization [facility] Address [address] [place] [address] Phone [phone] Care Team Providers Care Nurse Educator Name Role Phone Elvis Flores MD Primary Care Provider [phone] Encounter Details Date Type Department Care Team (Late st Contact Info) Description 01/28/2024 New Patient Triage (INTERACTIVE MULTIMEDIA DESIGNER USE ONLY) [facility] [place], Cardiac Recovery Suite, [facility] [address] [place] [address] Kimberlyn Mukherjee, RN Allergies No known active allergiesdocumented as of this encounter (statuses as of 02/06/2024) Medications ONE TOUCH ULTRA BONUS PACK KITIndications: [...] goal of less than 8.0% ([facility]) TAKE 1 TABLET BY MOUTH TWICE DAILY 180 Tablet 3 4 Active glipiZIDE ER 5 MG Oral Tablet Extended Release 24 Hour (Glucotrol XL)Indications: Type 2 diabetes mellitus with hemoglobin A1c goal of less than 8.0% (HCC) TAKE 1 TABLET BY MOUTH EVERY MORNING 90 Tablet 3 4 Active Additional Information Patient not taking.Reported on 02/06/2024 Jardiance 25 MG Oral Tablet (Empagliflozin) Indications:Typ e 2 diabetes mellitus with hemoglobin A1c goal of less than 8.0% ([facility]) TAKE 1 TABLET BY MOUTH ONCE DAILY [...] Tablet 01/16/2024 2:39 PM EST 4 Active Additional Information Patient not taking.Reported on 02/06/2024 Sacubitril-Vals guy 24-26 MG Oral Tablet (Entresto) Take 1 Tablet by mouth in the morning and 1 Tablet before bedtime. 60 Tablet 01/16/2024 2:39 PM EST 4 Active Additional Information Patient not taking.Reported on 02/06/2024 Spironolactone 25 MG Oral Tablet (Aldactone) Take one-half (0.5) Tablets by mouth in the morning. 30 Tablet 01/16/2024 2:39 PM EST 4 Active Additional Information Patient not taking.Reported on 02/06/2024 Clopidogrel Bisulfate 75 MG Oral Tablet (pLAVix) Take 1 Tablet by mouth in the morning. 30 Tablet 11 01/16/2024 2:39 PM EST 4 Active Tamsulosin HCl 0.4 MG Oral Capsule (Flomax) Take 1 Capsule by mouth every night at bedtime. 30 Capsule 01/16/2024 2:39 PM EST Active Additional Information Patient not taking.Reported on 02/06/2024 Nitroglycerin 0.4 MG Sublingual Tablet Sublingual (Nitrostat) Dissolve 1 tablet under the tongue every 5 minutes as needed for chest pain, for up to 3 doses in 15 minutes and call 911 or seek medical attention if no relief. 75 Tablet 3 01/16/2024 2:39 PM EST Active documented as of this encounter (statuses as of 02/06/2024) Active Problems Problem Noted Date Diagnosed Date Hematuria, gross 01/28/2024 Presence of external cardiac defibrillator 01/15 S/P primary angioplasty with coronary stent 05/2023 Heart failure with reduced e jection fraction (HFrEF, <= 40%) 01/15/2024 LBBB (left bundle branch block) 01/15/2024 Anemia due to acute blood loss 01/13/2024 Coronary artery disease invo lving [place] coronary artery of [place] heart 01/10/2024 History of cardiac arrest 01/09/2024 [...] as of this encounter (statuses as of 02/06/2024) Resolved Problems Problem Noted Date Diagnosed Date [...] as of this encounter (statuses as of 02/06/2024) Immunizations Name Administration Dates Next Due COVID-19 [...] Progress Notes * Claudia Ware DNP - 02/06/2024 12:19 PM EST Does patient need to be seen?: Yes Modality: Office visit Urgency: per VC Discussed care plan with patient or proxy?: Yes Appt is not scheduled until 04/2024. Consider sooner appt and further triage Communicated with patient on Date (mm/dd/yyyy): 01/28/2024 at Time ([facility]): 0720 Claudia Ware DNP, ANP- Heart [facility] [place], [place] [address] - [place] [facility] * Kimberlyn Mukherjee, RN - 01/28/2024 7:20 AM EST New Patient Triage What is the diagnosis/reason for referral?: Aortic Stenosis Enter order ID here: [id number] Specialty specific documentation: Cardiology Structural Heart Triage - Severe , recent cardiac arrest, multivessel stents. Also has a left bundle branch blockand severe LV systolic dysfunction. Should offer first available [facility] valve clinic or [facility] [place] if patient is willing to travel RADHA Fuentes Interventional Valve Nurse Navigator documented in this encounter Plan of Treatment Upcoming Encounters Date Type Department Care Team (Late st Contact Info) Description 02/10/2024 11:20 AM EST Office Visit [facility] [place] [address] [facility] [place] [phone] Elvis Flores MD [address] [place] [address] 03/02/2024 2:30 PM EST Imaging Radiology [facility] 132 [facility] [place] [address] 03/03/2024 11:00 AM EST Office Visit Cardiology, [facility] [address] [place] [address] Sonido Velasquez DO 132 [facility] [place] [address] 03/06/2024 9:40 AM EST Office Visit [facility] [place] [address] [place] [phone] Elvis Flores MD [address] [place] [address] 03/09/2024 3:00 PM EST Procedure Only Urology, [place] [address] [place] [address] Katherine Mccormick MD [address], [place] [id number] 03/23/2024 1:30 PM EST Cardiac Studies Cardiac Studies [facility] [place] [address] [place] [address] [place], E[facility] [address] [place], [place] [address] 03/23/2024 2:00 PM EST Office Visit Cardiology [facility] [place] [address] [place] [address] Robin Humphrey MD [address] [place] [address] 04/15/2024 11:00 AM EST Office Visit Cardiology, [facility] [address] [place] [address] Hayley Vuong IV, MD [address] [place] [address] 11/11/2024 9:30 AM EDT Cardiac Studies Cardiac Studies, [facility] [address] [facility] [address] Health Maintenance Due Date Last Done Comments [...] this encounter Medical Devices Implanted Type Area Manufacturing Engineer Supervisor Device Identifier Shelf Expiration Date Model / Serial / Lot Stent [place] 2.25x22 [place] [facility] - [id number] Implanted:Qty: 1 on 01/13/2024 by Nelsy Calvillo MD at [facility] [place] [employer] : VASCULAR [id number] 08/28/2026 [id number] UX / / [id number] Stent [place] 2.0x18 [place] [employer] - [id number] Implanted:Qty: 1 on 01/13/2024 by Nelsy Calvillo MD at [facility] [place] [employer] : VASCULAR [id number] 06/25/2026 [id number] UX / / [id number] Stent [place] 2.50x15 [place] [employer] - [id number] Implanted:Qty: 1 on 01/13/2024 by Nelsy Calvillo MD at [facility] [place] [employer] : VASCULAR 07/22/2026 [id number] UX / / [id number] Stent [place] 2.0x12 [place] [employer] - [id number] Implanted:Qty: 1 on 01/13/2024 by Nelsy Calvillo MD at [facility] [place] [place] [employer] : VASCULAR [id number] 03/05/2026 [id number] UX / / [id number] Stent [place] 2.50x26 [place] [employer] - [id number] Implanted:Qty: 1 on 01/13/2024 by Nelsy Calvillo MD at [facility] [place] [employer] : VASCULAR [id number] 09/24/2026 [id number] UX / / [id number] Stent [place] 2.50x26 [place] [facility] - [id number] Implanted:Qty: 1 on 01/13/2024 by Nelsy Calvillo MD at [facility] [place] [employer] : VASCULAR [id number] 09/24/2026 [id number] UX / / [id number] documented as of this encounter Advance Directives * Full Code (Latest Code Status on File) Date Activated Date Inactivated Comments 01/08/2024 10:30 PM 01/16/2024 7:40 PM This order reflects the patients wishes and were consensually agreed upon. Question Answer Comments Discussion of Advance Directives occurred with: Patient Care Teams Nurse Educator Relationship Specialty Start Date End Date Elvis Flores MD PCP - General 06/09/1998 documented as of this encounter
--- OUTSIDE RECORDS SUMMARY | 2024-03-02 21:06 | External Medical Summary | Summary of Care ---
Author Name Unknown Organization [facility] Address [address] [place] [address] Phone [phone] Care Team Providers Care Assembler Mechanical Ordnance Name Role Phone Elvis Flores MD Primary Care Provider [phone] Reason for Referral * Evaluate & Treat - Unlimited Visits (Within 3 days (urgent)) - Authorized Specialty Diagnoses / Procedures Referred By Aron reyes Referred To Contact Pharmacist / Pharmacy Diagnoses Acute on chronic heart failure with reduced ejection fraction (HFrEF, <= 40%) ([facility]) Nadiya Watkins RN [address] [place] [address] Phone: tel: fax: Referral ID Status Reason Start Date Expiration Date Visits Requested Visits Authorized [id number] Authorized Specialty Services Required 4 08/04/2024 99 99 Question Answer Referral Priority Within 3 days (urgent) Where should this appointment be scheduled? [facility] Referring Provider Role: Specialist Specialty: Cardio Reason for Referral: HF Comments Pharmacist Medication Therapy Management: Minimum frequency patient should be seen in person for medication management: as appropriate per clinical condition and patient status By my signature, I understand that my patient Russ Love will have his medication therapy managed by the [facility] Medication Therapy Disease Management Clinic ([facility]) per established policies, procedures, and protocols. I also certify that this referral may serve as an initiation of service for the management of drug therapy in the above noted patient. [facility] providers will be responsible for scheduling patient visits, obtaining appropriate laboratory studies, and adjusting medication management therapy per patient's need, in addition to those roles spelled out in the clinic policy, procedures, and drug management protocols. I understand that the service provided by the [facility] is voluntary and have informed patient that they can refuse the service at their discretion. I am aware that the [facility] will provide me with a copy of the patient encounter via my [employer]. I authorize the [facility] to carry out these activities on my behalf. I consider this program to be a necessary part of the patient's medical care. Nadiya Watkins RN Reason for Visit * Reason Onset Date Comments Order Request 02/06/2024 case management 02/06/2024 Diuretic Titrati on Protocol Encounter Details Date Type Department Care Team (Late st Contact Info) Description 02/06/2024 Telephone Care Coordination and Integration [address] [place] [address] Nadiya Watkins RN [address] [place] [address] Order Request; case management (Diuretic T... Allergies No known active allergiesdocumented as of [...] A1c goal of less than 8.0% ([facility]) TAKE 1 TABLET BY MOUTH TWICE DAILY [...] A1c goal of less than 8.0% ([facility]) TAKE 1 TABLET BY MOUTH ONCE DAILY [...] Tablet 3 01/16/2024 2:39 PM EST Active Clopidogrel Bisulfate 75 MG Oral Tablet (Plavix)Indicat ions:Coronary artery disease of [place] artery of [place] heart with stable angina pectoris (HCC) Take 1 Tablet by mouth in the morning. 30 Tablet 6 Active documented as of this encounter (statuses as of 02/06/2024) Active Problems Problem Noted Date Diagnosed Date Hematuria, gross 01/28/2024 Presence of external cardiac defibrillator 01/15 S/P primary angioplasty with coronary stent 05/2023 Heart failure with reduced e jection fraction (HFrEF, <= 40%) 01/15/2024 LBBB (left bundle branch block) 01/15/2024 Anemia due to acute blood loss 01/13/2024 Coronary artery disease invo lving [place] coronary artery of [place] heart 01/10/2024 History of cardiac arrest 01/09/2024 [...] this encounter Patient Instructions * Patient Instructions* Nadiya Watkins RN - 02/06/2024 10:35 AM EST Russ Love [address] [place] [phone] February 06, 2024 Dear Mr. Love: With your history of heart failure, your healthcare provider has recommended increasing your diuretic if your weight is: Greater than or equal to 3 pounds in 24 hours over your baseline weight OR Greater than or equal to 5 pounds in 3 days over your baseline weight You should double your dose of: As directed by Cardiology Call your high risk case manager if: 1. Your weight does not return to baseline. 2. Your urine output becomes less than half of the usual amount. 3. You experience nausea, muscle cramps, dizziness, fainting, chest pain, worsening cough, worsening shortness of breath or worsening swelling. Nadiya Watkins RN Case Management [facility] documented in this encounter Miscellaneous Notes * Telephone Encounter - Sonido Velasquez DO - 02/06/2024 12:43 PM EST Updates noted. Multiple medications held due to hypotension combined acute blood loss anemia with hypovolemic shock and cardiogenic shock. We will reassess medications at time of visit. Refill for clopidogrel signed. Sonido Velasquez DO * Telephone Encounter - Nadiya Watkins RN - 02/06/2024 10:31 AM EST Images from the original note were not included. Cardiac arrest on 01/08/24: Tx to [facility] s/p CATH Severe 3Vessel Dx and sever . S/P PCI x 6 stents. D/C 01/16/24 01/17/24: Readmit for gross hematuria, hypotensive, tachypneic, tachycardic and minimally responsive. 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 Patient was admitted to the ICU and required norepinephrine to maintain his blood pressure. Urine culture grew outKlebsiella and enterococci. ECHO w/ EF=20% with the presence of global hypokinesis. 01/22 - 03/06/23: [facility] in place Body port scale ordered Medications from d/c list do not include Spironolactone, Entresto and metoprolol documented in this encounter Plan of Treatment Upcoming Encounters Date Type Department Care Team (Late st Contact Info) Description 02/10/2024 11:20 AM EST [facility] [place] [phone] Elvis Flores MD [address] [place] [address] 03/02/2024 2:30 PM EST Imaging Radiology [facility] [address] [place] [address] 03/03/2024 11:00 AM EST Office Visit Cardiology, [facility] [address] [place] [address] Sonido Velasquez DO [address] [place] [address] 03/06/2024 9:40 AM EST Office Visit [facility], [place] [address] [place] [phone] Elvis Flores MD [address] [place] [address] 03/09/2024 3:00 PM EST Procedure Only Urology, [place] [address] [place], [place] [phone] Katherine Mccormick MD [address] [place], [place] [id number] 03/23/2024 1:30 PM EST Cardiac Studies Cardiac Studies [facility] [place] [address] [facility], [place] [phone] [facility] [address] [place] [address] 03/23/2024 2:00 PM EST Office Visit Cardiology [facility] [place] [address] [place], [place] [phone] Robin Humphrey MD [address] [place] [address] 04/15/2024 11:00 AM EST Office [address], [address] [address] Hayley Vuong IV, MD [address] [place] [facility] [place] [address] 11/11/2024 9:30 AM EDT Cardiac Studies Cardiac Studies, [address] [place] [address] Scheduled Referrals Name Type Priority Associated Diagnoses Orde r Schedule PHARMACIST MEDS THERAPY MGMT REFERRAL OP Referral Within 3 days (urgent) Acute on chronic heart failure with reduced ejection fraction (HFrEF, <= 40%) (HCC) Ordered: 02/06/2024 Health Maintenance Due Date Last Done Comments [...] this encounter Medical Devices Implanted Type Area Flight Reservations Manager Device Identifier Shelf Expiration Date Model / Serial / Lot Stent [place] 2.25x22 [employer] - [id number] Implanted:Qty: 1 on 01/13/2024 by Nelsy Calvillo MD at [facility] [employer] : VASCULAR [id number] 08/28/2026 [id number] UX / / [id number] Stent [place] 2.0x18 [employer] Rx - [id number] Implanted:Qty: 1 on 01/13/2024 by Nelsy Calvillo MD at [facility] [employer] : VASCULAR [id number] 06/25/2026 [id number] UX / / [id number] Stent [place] 2.50x15 [employer] Rx - [id number] Implanted:Qty: 1 on 01/13/2024 by Nelsy Calvillo MD at [facility] [employer] : VASCULAR 07/22/2026 [id number] UX / / [id number] Stent [place] 2.0x12 [employer] - [id number] Implanted:Qty: 1 on 01/13/2024 by Nelsy Calvillo MD at [facility] [employer] : VASCULAR [id number] 03/05/2026 [id number] UX / / [id number] Stent [place] 2.50x26 [employer] Rx - [id number] Implanted:Qty: 1 on 01/13/2024 by Nelsy Calvillo MD at [facility] [employer] : VASCULAR [id number] 09/24/2026 [id number] / / [id number] Stent [place] 2.50x26 [employer] - [id number] Implanted:Qty: 1 on 01/13/2024 by Nelsy Calvillo MD at [facility] [employer] : VASCULAR [id number] 09/24/2026 [id number] / / [id number] documented as of this encounter Visit Diagnoses Diagnosis Acute on chronic heart failure with reduced ejection fraction (HFrEF, <= 40%) (HCC)- Primary Coronary artery disease of [place] artery of [place] heart with stable angina pectoris (HCC) documented in this encounter Advance Directives * Full Code (Latest Code Status on File) Date Activated Date Inactivated Comments 01/08/2024 10:30 PM 01/16/2024 7:40 PM This order reflects the patients wishes and were consensually agreed upon. Question Answer Comments Discussion of Advance Directives occurred with: Patient Care Teams Assembler Mechanical Ordnance Relationship Specialty Start Date End Date Elvis Flores MD PCP - General 06/09/1998 documented as of this encounter
--- OUTSIDE RECORDS SUMMARY | 2024-03-02 21:06 | External Medical Summary | Summary of Care ---
Author Name Unknown Organization [facility] Address [address] [place] [address] Phone [phone] Care Team Providers Care Storekeeper Engineering Name Role Phone Elvis Flores MD Primary Care Provider [phone] Encounter Details Date Type Department Care Team (Late st Contact Info) Description 01/28/2024 New Patient Triage (TOILET AND LAUNDRY SOAP SUPERVISOR USE ONLY) [facility], Cardiac Recovery Suite, [facility] [address] [place] [address] Kimberlyn Mukherjee, RN Allergies No [...] hemoglobin A1c goal of less than 8.0% ([facility]) TAKE 1 TABLET BY MOUTH [...] hemoglobin A1c goal of less than 8.0% ([facility]) TAKE 1 TABLET BY MOUTH [...] loss 01/13/2024 Coronary artery disease invo lving [place] coronary artery of [place] heart 01/10/2024 History of cardiac arrest 01/09/2024 [...] patient on Date (mm/dd/yyyy): 01/28/2024 at Time ([facility]): 0720 Claudia Ware DNP, ANP- [facility] [place], [place] [address] - [place] [facility] * Kimberlyn Mukherjee, RN - 01/28/2024 7:20 AM EST New Patient Triage What is the diagnosis/reason for referral?: Aortic Stenosis Enter order ID here: [id number] Specialty specific documentation: Cardiology Structural Heart Triage - Severe , recent cardiac arrest, multivessel stents. Also has a left bundle branch blockand severe LV systolic dysfunction. Should offer first available [facility] or [facility] if patient is willing to travel RADHA Fuentes Interventional Valve Nurse Navigator documented in this encounter Plan of Treatment Upcoming Encounters Date Type Department Care Team (Late st Contact Info) Description 02/10/2024 11:20 AM EST Office Visit [facility] [place] [address] [facility] [place] [phone] Elvis Flores MD [address] [place] [address] 03/02/2024 2:30 PM EST Imaging Radiology [facility] 132 [facility] [place] [address] 03/03/2024 11:00 AM EST Office Visit Cardiology, [facility] [address] [place] [address] Sonido Velasquez DO 132 [facility] [place] [address] 03/06/2024 9:40 AM EST Office Visit [facility] [place] [address] [place] [phone] Elvis Flores MD [address] [place] [address] 03/09/2024 3:00 PM EST Procedure Only Urology, [place] [address] [place] [address] Katherine Mccormick MD [address], [place] [id number] 03/23/2024 1:30 PM EST Cardiac Studies Cardiac Studies [facility], [place] [address] [place] [address] [place], E[place] [address] [place], [place] [address] 03/23/2024 2:00 PM EST Office Visit Cardiology [facility], [place] [address] [place] [address] Robin Humphrey MD [address] [place] [address] 04/15/2024 11:00 AM EST Office Visit Cardiology, [facility] [address] [place] [address] Hayley Vuong IV, MD [address] [place] [address] 11/11/2024 9:30 AM EDT Cardiac Studies Cardiac Studies, [facility] [address] [facility] [address] Health Maintenance Due Date Last Done Comments [...] this encounter Medical Devices Implanted Type Area Visiting Nurse Device Identifier Shelf Expiration Date Model / Serial / Lot Stent [place] 2.25x22 [place] [employer] - [id number] Implanted:Qty: 1 on 01/13/2024 by Nelsy Calvillo MD at [facility] [employer] : VASCULAR [id number] 08/28/2026 [id number] UX / / [id number] Stent [place] 2.0x18 [place] Rx - [id number] Implanted:Qty: 1 on 01/13/2024 by Nelsy Calvillo MD at [facility] [employer] : VASCULAR [id number] 06/25/2026 [id number] UX / / [id number] Stent [place] 2.50x15 [place] Rx - [id number] Implanted:Qty: 1 on 01/13/2024 by Nelsy Calvillo MD at [facility] [employer] : VASCULAR 07/22/2026 [id number] UX / / [id number] Stent [place] 2.0x12 [place] Rx - [id number] Implanted:Qty: 1 on 01/13/2024 by Nelsy Calvillo MD at [facility] [employer] : VASCULAR [id number] 03/05/2026 [id number] UX / / [id number] Stent [place] 2.50x26 [place] Rx - [id number] Implanted:Qty: 1 on 01/13/2024 by Nelsy Calvillo MD at [facility] [employer] : VASCULAR [id number] 09/24/2026 [id number] UX / / [id number] Stent [place] 2.50x26 [place] Rx - [id number] Implanted:Qty: 1 on 01/13/2024 by Nelsy Calvillo MD at [facility] [employer] : VASCULAR [id number] 09/24/2026 [id number] UX / / [id number] documented as of this encounter Advance Directives * Full Code (Latest Code Status on File) Date Activated Date Inactivated Comments 01/08/2024 10:30 PM 01/16/2024 7:40 PM This order reflects the patients wishes and were consensually agreed upon. Question Answer Comments Discussion of Advance Directives occurred with: Patient Care Teams Storekeeper Engineering Relationship Specialty Start Date End Date Elvis Flores MD PCP - General 06/09/1998 documented as of this encounter
--- OUTSIDE RECORDS SUMMARY | 2024-03-02 21:07 | External Medical Summary ---
Author Name Unknown Address Unknown Organization K09:[facility] [address] [place] [address] Laboratory Report Ordering Provider Test Date Status ISAAK RODRIGUEZ 01/24/2024 06:14:08 Final Observation Date Value Abnormality Reference (Units ) Status WBC, Total 01/24/2024 06:14:08 5.29 4.00-10.8 0 (K/uL) Final RBC 01/24/2024 06:14:08 3.26 4.50-5.25 (M/uL) Final Hemoglobin 01/24/2024 06:14:08 9.1 Below low normal 14 .0-16.8 (g/dL) Final HCT 01/24/2024 06:14:08 29.4 Below low normal 40. 0-48.4 (%) Final MCV 01/24/2024 06:14:08 90.2 82.0-99.5 (fL) Final MCH 01/24/2024 06:14:08 27.9 27.0-34.0 (pg) Final MCHC 01/24/2024 06:14:08 31.0 32.0-36.0 (g/dL) Final RDW 01/24/2024 06:14:08 15.9 11.5-15.5 (%) Final Platelets 01/24/2024 06:14:08 254 140-400 (K /uL) Final MPV 01/24/2024 06:14:08 10.0 6.6-11.1 ( fL) Final Performing Location [facility] [place] [address]
--- OUTSIDE RECORDS SUMMARY | 2024-03-02 21:07 | External Medical Summary | Summary of Care ---
Author Name Unknown Organization [facility] Address [address] [place] [address] Phone [phone] Care Team Providers Care Reo Asset Manager Name Role Phone Elvis Flores MD Primary Care Provider Encounter Details Date Type Department Care Team (Latest Contact Info) Description 01/17/2024 9:00 AM EST - 01/17/2024 11:59 PM EST Hospital Encounter Radiology Film File [address] [place] [address] Discharge Disposition: Home - Self Care Allergies No known active allergiesdocumented as of this encounter (statuses as of 01/24/2024) Medications ONE TOUCH ULTRA BONUS PACK KITIndications: [...] as of this encounter (statuses as of 01/24/2024) Active Problems Problem Noted Date Diagnosed Date Presence of external cardiac defibrillator 01/15 S/P primary angioplasty with coronary stent 05/2023 Heart failure with reduced e jection fraction (HFrEF, <= 40%) 01/15/2024 LBBB (left bundle branch block) 01/15/2024 Anemia due to acute blood loss 01/13/2024 Coronary artery disease invo lving [place] coronary artery of [place] heart 01/10/2024 History of cardiac arrest 01/09/2024 [...] as of this encounter (statuses as of 01/24/2024) Resolved Problems Problem Noted Date Diagnosed Date [...] as of this encounter (statuses as of 01/24/2024) Immunizations Name Administration Dates Next Due COVID-19 [...] Description 03/02/2024 2:30 PM EST Imaging Radiology [address] [place] [address] 03/06/2024 9:40 AM EST [facility] [address] [facility] [place] [address] Elvis Flores MD [address] [facility] [place] [address] 03/09/2024 3:00 PM EST Procedure Only Urology, [place] [address] [facility] [address] Katherine Mccormick MD [address] [place] [facility] [place] [address] 11/11/2024 9:30 AM EDT Cardiac Studies Cardiac Studies, [facility] 132 [facility] [place] [address] Health Maintenance Due Date Last Done Comments [...] 09/14/2021, Additional history exists GFR 01/23/2025 01/24/2024, 1206/2023, 01/15/2024, Additional history exists DTap/Tdap Vaccines (4 [...] this encounter Medical Devices Implanted Type Area Foreign Law Consultant Device Identifier Shelf Expiration Date Model / Serial / Lot Stent [place] 2.25x22 [place] [facility] - [id number] Implanted:Qty: 1 on 01/13/2024 by Nelsy Calvillo MD at [facility] [employer] : VASCULAR [id number] 08/28/2026 [id number] UX / / [id number] Stent [place]inch 2.0x18 [place] [employer] - [id number] Implanted:Qty: 1 on 01/13/2024 by Nelsy Calvillo MD at [facility] [employer] : VASCULAR [id number] 06/25/2026 [id number] UX / / [id number] Stent [place] 2.50x15 [place] [employer] - [id number] Implanted:Qty: 1 on 01/13/2024 by Nelsy Calvillo MD at [facility] [employer] : VASCULAR 07/22/2026 [id number] UX / / [id number] Stent [place]inch 2.0x12 [place] [employer] - [id number] Implanted:Qty: 1 on 01/13/2024 by Nelsy Calvillo MD at [facility] [employer] : VASCULAR [id number] 03/05/2026 [id number] UX / / [id number] Stent [place] 2.50x26 [place] [employer] - [id number] Implanted:Qty: 1 on 01/13/2024 by Nelsy Calvillo MD at [facility] [employer] : VASCULAR [id number] 09/24/2026 [id number] UX / / [id number] Stent [place]inch 2.50x26 [place] [facility] - [id number] Implanted:Qty: 1 on 01/13/2024 by Nelsy Calvillo MD at [facility] [employer] : VASCULAR [id number] 09/24/2026 [id number] UX / / [id number] documented as of this encounter Procedures Procedure Name Priority Date/Time Associated Diagnosis Comments RADIOLOGY EXAM - CT (IMAGES ONLY, NO REPORT) Routine 01/17/2024 9:00 AM EST documented in this encounter Results * RADIOLOGY EXAM - CT (IMAGES ONLY, NO REPORT) (01/17/2024 9:00 AM EST) 01/17/2024 8:50 AM EST Narrative Scheduling, Silent - 01/23/2024 2:35 PM EST This is an imaging study not interpreted or resulted by a [employer] or [employer] contracted radiologist. us Elvis Flores MD RAD CT Final Result documented in this encounter Advance Directives * Full Code (Latest Code Status on File) Date Activated Date Inactivated Comments 01/08/2024 10:30 PM 01/16/2024 7:40 PM This order reflects the patients wishes and were consensually agreed upon. Question Answer Comments Discussion of Advance Directives occurred with: Patient Care Teams Reo Asset Manager Relationship Specialty Start Date End Date Elvis Flores MD [address] [place] [address] PCP - General 06/09/1998 documented as of this encounter
--- OUTSIDE RECORDS SUMMARY | 2024-03-02 21:07 | External Medical Summary | Summary of Care ---
Author Name Unknown Organization [facility] Address [address] [place] [address] Phone [phone] Care Team Providers Care Coal Handler Name Role Phone Elvis Flores MD Primary Care Provider [phone] Encounter Details Date Type Department Care Team (Latest Contact Info) Description 01/17/2024 8:50 AM EST - 01/17/2024 8:54 AM EST Hospital Encounter Radiology Film File [address] [place] [address] Discharge Disposition: Home - Self [...] loss 01/13/2024 Coronary artery disease invo lving [place] coronary artery of [place] heart 01/10/2024 History of cardiac arrest 01/09/2024 [...] Description 03/02/2024 2:30 PM EST Imaging Radiology [address] [place] [address] 03/06/2024 9:40 AM EST Office [facility] [address] [facility] [place] [address] Elvis Flores MD [address] [facility] [place] [address] 03/09/2024 3:00 PM EST Procedure Only Urology, [place] [address] [facility] [address] Katherine Mccormick MD [address] [place] [facility] [place] [address] 11/11/2024 9:30 AM EDT Cardiac Studies Cardiac Studies, [facility] 132 [facility] [place] [address] Health Maintenance Due Date Last Done Comments [...] this encounter Medical Devices Implanted Type Area Upper Doubler Device Identifier Shelf Expiration Date Model / Serial / Lot Stent [place] 2.25x22 [place] [facility] - [id number] Implanted:Qty: 1 on 01/13/2024 by Nelsy Calvillo MD [facility] [employer] : VASCULAR [id number] 08/28/2026 [id number] UX / / [id number] Stent [place] 2.0x18 [place] [employer] - [id number] Implanted:Qty: 1 on 01/13/2024 by Nelsy Calvillo MD at [facility] [employer] : VASCULAR [id number] 06/25/2026 [id number] UX / / [id number] Stent [place] 2.50x15 [place] [employer] - [id number] Implanted:Qty: 1 on 01/13/2024 by Nelsy Calvillo MD at [facility] [employer] : VASCULAR 07/22/2026 [id number] UX / / [id number] Stent [place] 2.0x12 [place] [employer] - [id number] Implanted:Qty: 1 on 01/13/2024 by Nelsy Calvillo MD at [facility] [employer] : VASCULAR [id number] 03/05/2026 [id number] UX / / [id number] Stent [place] 2.50x26 [place] [employer] - [id number] Implanted:Qty: 1 on 01/13/2024 by Nelsy Calvillo MD at [facility] [employer] : VASCULAR [id number] 09/24/2026 [id number] UX / / [id number] Stent [place] 2.50x26 [place] [employer] - [id number] Implanted:Qty: 1 on 01/13/2024 by Nelsy Calvillo MD at [facility] [employer] : VASCULAR [id number] 09/24/2026 [id number] UX / / [id number] documented as of this encounter Procedures Procedure Name Priority Date/Time Associated Diagnosis Comments RADIOLOGY EXAM - CT (IMAGES ONLY, NO REPORT) Routine 01/17/2024 8:50 AM EST documented in this encounter Results * RADIOLOGY EXAM - CT (IMAGES ONLY, NO REPORT) (01/17/2024 8:50 AM EST) 01/17/2024 8:50 AM EST Narrative Scheduling, Silent - 01/23/2024 2:28 PM EST This is an imaging study not interpreted or resulted by a [employer] or [employer] contracted radiologist. us Elvis Flores MD RAD CT Final Result documented in this encounter Advance Directives * Full Code (Latest Code Status on File) Date Activated Date Inactivated Comments 01/08/2024 10:30 PM 01/16/2024 7:40 PM This order reflects the patients wishes and were consensually agreed upon. Question Answer Comments Discussion of Advance Directives occurred with: Patient Care Teams Coal Handler Relationship Specialty Start Date End Date Elvis Flores MD [address] [place] [address] PCP - General 06/09/1998 documented as of this encounter
--- OUTSIDE RECORDS SUMMARY | 2024-03-02 21:07 | External Medical Summary | Summary of Care ---
Author Name Unknown Organization [facility] Address [address] [place] [address] Phone [phone] Care Team Providers Care Hoop Punch And Coiler Operator Name Role Phone Elvis Flores MD Primary Care Provider [phone] Encounter Details Date Type Department Care Team (Late st Contact Info) Description 01/17/2024 Orders Only [facility] [address] [place] [address] Elvis Flores MD [address] [place], [place] [phone] Allergies No known active allergiesdocumented as of this encounter (statuses as of 01/23/2024) Medications ONE TOUCH ULTRA BONUS PACK KITIndications: [...] as of this encounter (statuses as of 01/23/2024) Active Problems Problem Noted Date Diagnosed Date Presence of external cardiac defibrillator 01/15 S/P primary angioplasty with coronary stent 05/2023 Heart failure with reduced e jection fraction (HFrEF, <= 40%) 01/15/2024 LBBB (left bundle branch block) 01/15/2024 Anemia due to acute blood loss 01/13/2024 Coronary artery disease invo lving [place] coronary artery of [place] heart 01/10/2024 History of cardiac arrest 01/09/2024 [...] as of this encounter (statuses as of 01/23/2024) Resolved Problems Problem Noted Date Diagnosed Date [...] as of this encounter (statuses as of 01/23/2024) Immunizations Name Administration Dates Next Due COVID-19 [...] Description 03/02/2024 2:30 PM EST Imaging Radiology [facility] 1st [facility], [address] [place] [address] 03/06/2024 9:40 AM EST Office Visit [place], [place] [address] [place] [place] [phone] Elvis Flores MD [address] [place] [address] 03/09/2024 3:00 PM EST Procedure Only Urology, [place] [address] [place] [facility] [address] Katherine Mccormick MD [address] [place] [address] 11/11/2024 9:30 AM EDT Cardiac Studies Cardiac Studies, [facility] 132 [facility] [place] [address] Health Maintenance Due Date Last Done Comments [...] this encounter Medical Devices Implanted Type Area Operations [place] Device Identifier Shelf Expiration Date Model / Serial / Lot Stent [place] 2.25x22 [place] [facility] - [id number] Implanted:Qty: 1 on 01/13/2024 by Nelsy Calvillo MD [place] [facility] [employer] : VASCULAR [id number] 08/28/2026 [id number] UX / / [id number] Stent [place] 2.0x18 [place] [facility] - [id number] Implanted:Qty: 1 on 01/13/2024 by Nelsy Calvillo MD at [facility] [employer] : VASCULAR [id number] 06/25/2026 [id number] UX / / [id number] Stent [place] 2.50x15 [place] [facility] - [id number] Implanted:Qty: 1 on 01/13/2024 by Nelsy Calvillo MD at [facility] [employer] : VASCULAR 07/22/2026 [id number] UX / / [id number] Stent [place] 2.0x12 [place] [facility] - [id number] Implanted:Qty: 1 on 01/13/2024 by Nelsy Calvillo MD at [facility] [employer] : VASCULAR [id number] 03/05/2026 [id number] UX / / [id number] Stent [place] 2.50x26 [place] [facility] - [id number] Implanted:Qty: 1 on 01/13/2024 by Nelsy Calvillo MD at [facility] [employer] : VASCULAR [id number] 09/24/2026 [id number] UX / / [id number] Stent [place] 2.50x26 [place] [facility] - [id number] Implanted:Qty: 1 on 01/13/2024 by Nelsy Calvillo MD at [facility] [employer] : VASCULAR [id number] 09/24/2026 [id number] UX / / [id number] documented as of this encounter Procedures Procedure Name Priority Date/Time Associated Diagnosis Comments RADIOLOGY EXAM - CT (IMAGES ONLY, NO REPORT) Routine 01/17/2024 8:55 AM EST documented in this encounter Results * RADIOLOGY EXAM - CT (IMAGES ONLY, NO REPORT) (01/17/2024 8:55 AM EST) 01/17/2024 8:50 AM EST Narrative Scheduling, Silent - 01/23/2024 2:31 PM EST This is an imaging study not interpreted or resulted by a [employer] or [employer] contracted radiologist. us Elvis Flores MD RAD CT Final Result documented in this encounter Advance Directives * Full Code (Latest Code Status on File) Date Activated Date Inactivated Comments 01/08/2024 10:30 PM 01/16/2024 7:40 PM This order reflects the patients wishes and were consensually agreed upon. Question Answer Comments Discussion of Advance Directives occurred with: Patient Care Teams Hoop Punch And Coiler Operator Relationship Specialty Start Date End Date Elvis Flores MD [address] [place] [address] PCP - General 06/09/1998 documented as of this encounter
--- OUTSIDE RECORDS SUMMARY | 2024-03-02 21:07 | External Medical Summary | Summary of Care ---
Author Name Unknown Organization [facility] Address [address] [place] [address] Phone [phone] Care Team Providers Care Exhibits Curator Name Role Phone Elvis Flores MD Primary Care Provider [phone] Encounter Details Date Type Department Care Team (Late st Contact Info) Description 01/17/2024 Orders Only [facility] [address] [place] [address] Elvis Flores MD [address] [place], [place] [phone] Allergies No known active allergiesdocumented as of [...] loss 01/13/2024 Coronary artery disease invo lving [place] coronary artery of [place] heart 01/10/2024 History of cardiac arrest 01/09/2024 [...] Description 03/02/2024 2:30 PM EST Imaging Radiology [facility] 1st [facility], [address] [place] [address] 03/06/2024 9:40 AM EST Office [place] [address] [place] [phone] Elvis Flores MD [address] [place] [address] 03/09/2024 3:00 PM EST Procedure Only Urology, [place] [address] [place] [facility] [place] [address] Katherine Mccormick MD [address] [place] [address] 11/11/2024 9:30 AM EDT Cardiac Studies Cardiac Studies, [facility] 132 [facility] [place] [address] Health Maintenance Due Date Last Done Comments [...] this encounter Medical Devices Implanted Type Area Color Repairer Device Identifier Shelf Expiration Date Model / Serial / Lot Stent [place] 2.25x22 [place] [facility] - [id number] Implanted:Qty: 1 on 01/13/2024 by Nelsy Calvillo MD at [facility] [employer] : VASCULAR [id number] 08/28/2026 [id number] UX / / [id number] Stent [place] 2.0x18 [place] [facility] - [id number] Implanted:Qty: 1 on 01/13/2024 by Nelsy Calvillo MD at [facility] [employer] : VASCULAR [id number] 06/25/2026 [id number] UX / / [id number] Stent [place] 2.50x15 [place] [facility] - [id number] Implanted:Qty: 1 on 01/13/2024 by Nelsy Calvillo MD at [facility] [employer] : VASCULAR 07/22/2026 [id number] UX / / [id number] Stent [place] 2.0x12 [place] [facility] - [id number] Implanted:Qty: 1 on 01/13/2024 by Nelsy Calvillo MD at [facility] [employer] : VASCULAR [id number] 03/05/2026 [id number] UX / / [id number] Stent [place] 2.50x26 [place] [facility] - [id number] Implanted:Qty: 1 on 01/13/2024 by Nelsy Calvillo MD at [facility] [employer] : VASCULAR [id number] 09/24/2026 [id number] UX / / [id number] Stent [place] 2.50x26 [place] [facility] - [id number] Implanted:Qty: 1 on 01/13/2024 by Nelsy Calvillo MD at [facility] [employer] : VASCULAR [id number] 09/24/2026 [id number] UX / / [id number] documented as of this encounter Procedures Procedure [...] study not interpreted or resulted by a [employer] or [employer] contracted radiologist. us Elvis Flores MD RAD CT Final Result documented in this encounter Advance Directives * Full Code (Latest Code Status on File) Date Activated Date Inactivated Comments 01/08/2024 10:30 PM 01/16/2024 7:40 PM This order reflects the patients wishes and were consensually agreed upon. Question Answer Comments Discussion of Advance Directives occurred with: Patient Care Teams Exhibits Curator Relationship Specialty Start Date End Date Elvis Flores MD [address] [place] [address] PCP - General 06/09/1998 documented as of this encounter
--- OUTSIDE RECORDS SUMMARY | 2024-03-02 21:07 | External Medical Summary | Summary of Care ---
Author Name Unknown Organization [facility] Address [address] [place] [address] Phone [phone] Care Team Providers Care Process Safety Engineer Name Role Phone Elvis Flores MD Primary Care Provider [phone] Encounter Details Date Type Department Care Team (Late st Contact Info) Description 01/17/2024 Result Scan Unspecified Department <No scans attached> Allergies No known active allergiesdocumented as of this encounter (statuses as of 01/20/2024) Medications ONE TOUCH ULTRA BONUS PACK KITIndications: [...] 3 01/16/2024 2:39 PM EST 4 Active documented as of this encounter (statuses as of 01/20/2024) Active Problems Problem Noted Date Diagnosed Date Presence of external cardiac defibrillator 01/15 S/P primary angioplasty with coronary stent 05/2023 Heart failure with reduced e jection fraction (HFrEF, <= 40%) 01/15/2024 LBBB (left bundle branch block) 01/15/2024 Anemia due to acute blood loss 01/13/2024 Coronary artery disease invo lving [place] coronary artery of [place] heart 01/10/2024 History of cardiac arrest 01/09/2024 [...] as of this encounter (statuses as of 01/20/2024) Resolved Problems Problem Noted Date Diagnosed Date [...] as of this encounter (statuses as of 01/20/2024) Immunizations Name Administration Dates Next Due COVID-19 [...] Care Team (Late st Contact Info) Description 01/24/2024 11:20 AM EST [facility] [place] [address] [phone] Elvis Flores MD [address] [address] 03/02/2024 2:30 PM EST Imaging Radiology [facility] [place] [address] 03/06/2024 9:40 AM EST Office Visit [facility] [place] [facility] [address] [facility] [place] [phone] Elvis Flores MD [address] [facility] [place] [address] 03/09/2024 3:00 PM EST Procedure Only Urology, [place] [address] [facility] [place] [address] Katherine Mccormick MD [address] [facility] [place] [address] 11/11/2024 9:30 AM EDT Cardiac Studies Cardiac Studies, [facility] [address] [place] [address] Health Maintenance Due Date Last Done Comments [...] this encounter Medical Devices Implanted Type Area Director Zone Device Identifier Shelf Expiration Date Model / Serial / Lot Stent [place] 2.25x22 [employer] - [id number] Implanted:Qty: 1 on 01/13/2024 by Nelsy Calvillo MD at [facility] [employer] : VASCULAR [id number] 08/28/2026 [id number] / / [id number] Stent [place] 2.0x18 [employer] - [id number] Implanted:Qty: 1 on 01/13/2024 by Nelsy Calvillo MD at [facility] [place] [employer] : VASCULAR [id number] 06/25/2026 [id number] UX / / [id number] Stent [place] 2.50x15 [employer] - [id number] Implanted:Qty: 1 on 01/13/2024 by Nelsy Calvillo MD at [facility] [employer] : VASCULAR 07/22/2026 [id number] UX / / [id number] Stent [place] 2.0x12 [employer] - [id number] Implanted:Qty: 1 on 01/13/2024 by Nelsy Calvillo MD at [facility] [place] [employer] : VASCULAR [id number] 03/05/2026 [id number] UX / / [id number] Stent [place] 2.50x26 [employer] - [id number] Implanted:Qty: 1 on 01/13/2024 by Nelsy Calvillo MD at [facility] [employer] : VASCULAR [id number] 09/24/2026 [id number] UX / / [id number] Stent [place] 2.50x26 [employer] - [id number] Implanted:Qty: 1 on 01/13/2024 by Nelsy Calvillo MD at [facility] [employer] : VASCULAR [id number] 09/24/2026 [id number] UX / / [id number] documented as of this encounter Procedures Procedure Name Priority Date/Time Associated Diagnosis Comments OUTSIDE LAB RESULTS 01/17/2024 documented in this encounter Results * OUTSIDE LAB RESULTS (01/17/2024) 01/17/2024 us No Physician Data Unknown LABORATORY Final Result documented in this encounter Advance Directives * Full Code (Latest Code Status on File) Date Activated Date Inactivated Comments 01/08/2024 10:30 PM 01/16/2024 7:40 PM This order reflects the patients wishes and were consensually agreed upon. Question Answer Comments Discussion of Advance Directives occurred with: Patient Care Teams Process Safety Engineer Relationship Specialty Start Date End Date Elivs Flores MD [address] [place] [address] PCP - General 06/09/1998 documented as of this encounter
--- OUTSIDE RECORDS SUMMARY | 2024-03-02 21:07 | External Medical Summary | Summary of Care ---
Author Name Unknown Organization [facility] Address [address] [place] [address] Phone [phone] Care Team Providers Care Research Assoc Name Role Phone Elvis Flores MD Primary Care Provider [phone] Encounter Details Date Type Department Care Team (Late st Contact Info) Description 01/17/2024 Orders Only [facility] [address] [place] [address] Elvis Flores MD [address] [place], [place] [phone] Allergies No known active allergiesdocumented as of [...] loss 01/13/2024 Coronary artery disease invo lving [place] coronary artery of [place] heart 01/10/2024 History of cardiac arrest 01/09/2024 [...] Description 03/02/2024 2:30 PM EST Imaging [facility]iology [facility]st [facility], [address] [place] [address] 03/06/2024 9:40 AM EST Office Visit Family Practice, [place] [address] [phone] Elvis Flores MD [address] [place] [address] 03/09/2024 3:00 PM EST Procedure Only Urology, [place] [address] [place] [facility] [place] [address] Katherine Mccormick MD [address] [place] [address] 11/11/2024 9:30 AM EDT Cardiac Studies Cardiac Studies, [facility] [address] [facility] [place] [address] Health Maintenance Due Date Last Done Comments [...] this encounter Medical Devices Implanted Type Area Locomotive Inspector Device Identifier Shelf Expiration Date Model / Serial / Lot Stent [place] 2.25x22 [place] Rx - [id number] Implanted:Qty: 1 on 01/13/2024 by Nelsy Calvillo MD at [facility] [place] [employer] : VASCULAR [id number] 08/28/2026 [id number] UX / / [id number] Stent [place] 2.0x18 [place] Rx - [id number] Implanted:Qty: 1 on 01/13/2024 by Nelsy Calvillo MD at [facility] [place] [employer] : VASCULAR [id number] 06/25/2026 [id number] UX / / [id number] Stent [place] 2.50x15 [place] Rx - [id number] Implanted:Qty: 1 on 01/13/2024 by Nelsy Calvillo MD at [facility] [place] [employer] : VASCULAR 07/22/2026 [id number] UX / / [id number] Stent [place] 2.0x12 [place] [employer] - [id number] Implanted:Qty: 1 on 01/13/2024 by Nelsy Calvillo MD at [facility] [place] [employer] : VASCULAR [id number] 03/05/2026 [id number] UX / / [id number] Stent [place] 2.50x26 [place] [employer] - [id number] Implanted:Qty: 1 on 01/13/2024 by Nelsy Calvillo MD at [facility] [place] [employer] : VASCULAR [id number] 09/24/2026 [id number] UX / / [id number] Stent [place] 2.50x26 [place] [employer] - [id number] Implanted:Qty: 1 on 01/13/2024 by Nelsy Calvillo MD at [facility] [place] [employer] : VASCULAR [id number] 09/24/2026 [id number] UX / / [id number] documented as of this encounter Procedures Procedure [...] study not interpreted or resulted by a [employer] or [employer] contracted radiologist. us Elvis Flores MD RAD CT Final Result documented in this encounter Advance Directives * Full Code (Latest Code Status on File) Date Activated Date Inactivated Comments 01/08/2024 10:30 PM 01/16/2024 7:40 PM This order reflects the patients wishes and were consensually agreed upon. Question Answer Comments Discussion of Advance Directives occurred with: Patient Care Teams Research Assoc Relationship Specialty Start Date End Date Elvis Flores MD [address] [place] [address] PCP - General 06/09/1998 documented as of this encounter
--- OUTSIDE RECORDS SUMMARY | 2024-03-02 21:07 | External Medical Summary | Summary of Care ---
Author Name Unknown Organization [facility] Address [address] [place] [address] Phone [phone] Care Team Providers Care Roll Off Driver Name Role Phone Elvis Flores MD Primary Care Provider [phone] Encounter Details Date Type Department Care Team (Late st Contact Info) Description 01/17/2024 Orders Only [facility] [address] [place] [address] Elvis Flores MD [address] [place], [place] [phone] Allergies No known active allergiesdocumented as of [...] Description 03/02/2024 2:30 PM EST Imaging Radiology [facility] 1st [facility], [address] [place] [address] 03/06/2024 9:40 AM EST Office Visit [place] Practice, [place] [address] [phone] Elvis Flores MD [address] [place] [address] 03/09/2024 3:00 PM EST Procedure Only Urology, [place] [address] [place] [facility] [place] [address] Katherine Mccormick MD [address] [place] [address] 11/11/2024 9:30 AM EDT Cardiac Studies Cardiac Studies, [facility] [address] [facility] [place] [address] Health Maintenance Due Date Last Done Comments [...] this encounter Medical Devices Implanted Type Area Cylinder Die Machine Helper Device Identifier Shelf Expiration Date Model / Serial / Lot Stent [place] 2.25x22 [place] [employer] - [id number] Implanted:Qty: 1 on 01/13/2024 by Nelsy Calvillo MD at [facility] [place] [employer] [place] VASCULAR [id number] 08/28/2026 [id number] UX / / [id number] Stent [place] 2.0x18 [place] [employer] - [id number] Implanted:Qty: 1 on 01/13/2024 by Nelsy Calvillo MD at [facility] [place] [employer] : VASCULAR [id number] 06/25/2026 [id number] UX / / [id number] Stent [place] 2.50x15 [place] [employer] - [id number] Implanted:Qty: 1 on 01/13/2024 by Nelsy Calvillo MD at [facility] [employer] : VASCULAR 07/22/2026 [id number] UX / / [id number] Stent [place] 2.0x12 [employer] - [id number] Implanted:Qty: 1 on 01/13/2024 by Nelsy Calvillo MD at [facility] [place] [employer] : VASCULAR [id number] 03/05/2026 [id number] UX / / [id number] Stent [place] 2.50x26 [place] [employer] - [id number] Implanted:Qty: 1 on 01/13/2024 by Nelsy Calvillo MD at [facility] [place] [employer] : VASCULAR [id number] 09/24/2026 [id number] UX / / [id number] Stent [place] 2.50x26 [employer] - [id number] Implanted:Qty: 1 on 01/13/2024 by Nelsy Calvillo MD at [facility] [place] [employer] : VASCULAR [id number] 09/24/2026 [id number] UX / / [id number] documented as of this encounter Procedures Procedure Name Priority Date/Time Associated Diagnosis Comments RADIOLOGY EXAM - GENERAL RAD (IMAGES ONLY,NO REPORT) Routine 01/17/2024 8:40 AM EST documented in this encounter Results * RADIOLOGY EXAM - GENERAL RAD (IMAGES ONLY,NO REPORT) (01/17/2024 8:40 AM EST) 01/17/2024 8:39 AM EST Narrative Scheduling, [place] - 01/23/2024 2:33 PM EST This is an imaging study not interpreted or resulted by a [email or web address] or [email or web address] contracted radiologist. us Elvis Flores MD RADIOLOGY (RAD GENERAL) Final R esult documented in this encounter Advance Directives * Full Code (Latest Code Status on File) Date Activated Date Inactivated Comments 01/08/2024 10:30 PM 01/16/2024 7:40 PM This order reflects the patients wishes and were consensually agreed upon. Question Answer Comments Discussion of Advance Directives occurred with: Patient Care Teams Roll Off Driver Relationship Specialty Start Date End Date Elvis Flores MD [address] [place] [address] PCP - General 06/09/1998 documented as of this encounter
--- OUTSIDE RECORDS SUMMARY | 2024-03-02 21:07 | External Medical Summary | Summary of Care ---
Author Name Unknown Organization [facility] Address [address] [place] [address] Phone [phone] Care Team Providers Care Final Inspector Movement Assembly Name Role Phone Elvis Flores MD Primary Care Provider [phone] Encounter Details Date Type Department Care Team (Latest Contact Info) Description 01/17/2024 8:55 AM EST - 01/17/2024 8:59 AM EST Hospital Encounter Radiology Film File [address] [place] [address] Discharge Disposition: Home - Self [...] Coronary artery disease invo lving [place] coronary artery of [place] heart 01/10/2024 History of cardiac arrest 01/09/2024 [...] Description 03/02/2024 2:30 PM EST Imaging Radiology [address] [place] [address] 03/06/2024 9:40 AM EST [facility] [address] [facility] [place] [address] Elvis Flores MD [address] [facility] [place] [place] [address] 03/09/2024 3:00 PM EST Procedure Only Urology, [place] [address] [facility] [place] [address] Katherine Mccormick MD [address] [place] [address] 11/11/2024 9:30 AM EDT Cardiac Studies Cardiac Studies, [facility] 132 [facility] [place] [address] Health Maintenance Due Date Last Done Comments [...] this encounter Medical Devices Implanted Type Area Chainstitch Tunnel Elastic Operator Device Identifier Shelf Expiration Date Model / Serial / Lot Stent [place] 2.25x22 [place] [employer] - [id number] Implanted:Qty: 1 on 01/13/2024 by Nelsy Calvillo MD [place] [facility] [place] [employer] [place]ULAR [id number] 08/28/2026 [id number] UX / / [id number] Stent [place] 2.0x18 [place] [employer] - [id number] Implanted:Qty: 1 on 01/13/2024 by Nelsy Calvillo MD at [facility] [employer] [place] VASCULAR [id number] 06/25/2026 [id number] UX / / [id number] Stent [place] 2.50x15 [place] [employer] - [id number] Implanted:Qty: 1 on 01/13/2024 by Nelsy Calvillo MD at [facility] [place] [employer] [place] VASCULAR 07/22/2026 [id number] UX / / [id number] Stent [place] 2.0x12 [place] [employer] - [id number] Implanted:Qty: 1 on 01/13/2024 by Nelsy Calvillo MD at [facility] [employer] [place] VASCULAR [id number] 03/05/2026 [id number] UX / / [id number] Stent [place] 2.50x26 [place] [employer] - [id number] Implanted:Qty: 1 on 01/13/2024 by Nelsy Calvillo MD at [facility] [employer] : VASCULAR [id number] 09/24/2026 [id number] UX / / [id number] Stent [place] 2.50x26 [place] [employer] - [id number] Implanted:Qty: 1 on 01/13/2024 by Nelsy Calvillo MD at [facility] [employer] : VASCULAR [id number] 09/24/2026 [id number] UX / / [id number] documented as of this encounter Procedures Procedure [...] study not interpreted or resulted by a [employer] or [employer] contracted radiologist. us Elvis Flores MD RAD CT Final Result documented in this encounter Advance Directives * Full Code (Latest Code Status on File) Date Activated Date Inactivated Comments 01/08/2024 10:30 PM 01/16/2024 7:40 PM This order reflects the patients wishes and were consensually agreed upon. Question Answer Comments Discussion of Advance Directives occurred with: Patient Care Teams Final Inspector Movement Assembly Relationship Specialty Start Date End Date Elvis Flores MD [address] [place] [address] PCP - General 06/09/1998 documented as of this encounter
--- OUTSIDE RECORDS SUMMARY | 2024-03-02 21:07 | External Medical Summary | Summary of Care ---
Author Name Unknown Organization [facility] Address [address] [place] [address] Phone [phone] Care Team Providers Care Mobile Unit Assistant Name Role Phone Elvis Flores MD Primary Care Provider [phone] Encounter Details Date Type Department Care Team (Latest Contact Info) Description 01/17/2024 8:40 AM EST - 01/17/2024 8:49 AM EST Hospital Encounter Radiology Film File [address] [place] [address] Discharge Disposition: Home - Self [...] loss 01/13/2024 Coronary artery disease invo lving [place] coronary artery of [place] heart 01/10/2024 History of cardiac arrest 01/09/2024 [...] Description 03/02/2024 2:30 PM EST Imaging Radiology [address] [place] [address] 03/06/2024 9:40 AM EST [facility] [address] [facility] [place] [address] Elvis Flores MD [address] [facility] [place] [address] 03/09/2024 3:00 PM EST Procedure Only Urology, [place] [address] [facility] [place] [address] Katherine Mccormick MD [address] [place] [facility] [address] 11/11/2024 9:30 AM EDT Cardiac Studies Cardiac Studies, [facility] [address] [facility] [place] [address] Health Maintenance Due Date Last Done Comments [...] this encounter Medical Devices Implanted Type Area Aluminum Polisher Device Identifier Shelf Expiration Date Model / Serial / Lot Stent [place] 2.25x22 [place] Rx - [id number] Implanted:Qty: 1 on 01/13/2024 by Nelsy Calvillo MD at [facility] [place] [employer] : VASCULAR [id number] 08/28/2026 [id number] UX / / [id number] Stent [place] 2.0x18 [place] Rx - [id number] Implanted:Qty: 1 on 01/13/2024 by Nelsy Calvillo MD at [facility] [place] [employer] : VASCULAR [id number] 06/25/2026 [id number] UX / / [id number] Stent [place] 2.50x15 [place] Rx - [id number] Implanted:Qty: 1 on 01/13/2024 by Nelsy Calvillo MD at [facility] [place] [employer] : VASCULAR 07/22/2026 [id number] UX / / [id number] Stent [place] 2.0x12 [place] Rx - [id number] Implanted:Qty: 1 on 01/13/2024 by Nelsy Calvillo MD at [facility] [place] [employer] : VASCULAR [id number] 03/05/2026 [id number] UX / / [id number] Stent [place] 2.50x26 [place] Rx - [id number] Implanted:Qty: 1 on 01/13/2024 by Nelsy Calvillo MD at [facility] [place] [employer] : VASCULAR [id number] 09/24/2026 [id number] UX / / [id number] Stent [place] 2.50x26 [place] Rx - [id number] Implanted:Qty: 1 on 01/13/2024 by Nelsy Calvillo MD at [facility] [place] [employer] : VASCULAR [id number] 09/24/2026 [id number] UX / / [id number] documented as of this encounter Procedures Procedure [...] study not interpreted or resulted by a [employer] or [employer] contracted radiologist. us Elvis Flores MD RADIOLOGY (RAD GENERAL) Final R esult documented in this encounter Advance Directives * Full Code (Latest Code Status on File) Date Activated Date Inactivated Comments 01/08/2024 10:30 PM 01/16/2024 7:40 PM This order reflects the patients wishes and were consensually agreed upon. Question Answer Comments Discussion of Advance Directives occurred with: Patient Care Teams Mobile Unit Assistant Relationship Specialty Start Date End Date Elvis Flores MD [address] [place] [address] PCP - General 06/09/1998 documented as of this encounter
[2024-03-02] MEDS: INSULIN ASPART PER UNIT CHARGE SC SCH (21:42)
[2024-03-02] MEDS: VALSARTAN/SACUBITRIL 26/24MG TAB PO SCH (21:45)
--- NOTE | 2024-03-02 22:24 | Emergency Department Note ---
Impression & Plan Severe aortic stenosis, Syncope, H/O ventricular fibrillation, Decreased cardiac ejection fraction ED Provider Note CHIEF COMPLAINT: Syncopal episode HISTORY OF PRESENT ILLNESS: This 83-year-old male patient past medical history of diabetes, dyslipidemia, hypertension, aortic stenosis, V-fib arrest 3 months ago with subsequent triple-vessel stenting presents to the emergency department with complaints of an unresponsive episode. He was at the outpatient imaging center and received IV contrast. He was noted to be unresponsive and a code was called. According to the patient's production laborer, Dr. Velasquez, the patient was responding to him by the time he arrived to assess him. Patient has no recollection of the events. Of note patient was discharged from the hospital with a Lifepak in place. This was removed during the CAT scan. REVIEW OF SYSTEMS: A review of systems was performed with positives and pertinent negatives listed in the history of present illness. 10 systems were reviewed and are otherwise negative. ALLERGIES: see below MEDICATIONS: see below PMH: see below SOCIAL HISTORY: see below DDx: Cardiac arrhythmia, vasovagal syncope secondary to IV contrast, allergic reaction, dehydration, acute coronary syndrome, among others. PHYSICAL EXAM: Vital signs reviewed. General: Elderly, chronically ill-appearing 83-year-old male, in no significant distress. HEENT: No scleral icterus, PERRLA, neck supple. moist mucous membranes Cardiovascular: Regular rate and rhythm, no extra sounds. positive systolic ejection murmur, high-pitched. Lifepak in place Pulmonary: Clear to auscultation bilaterally, normal work of breathing. Abdomen: Soft, nontender, nondistended, positive bowel sounds. Musculoskeletal: Atraumatic, no peripheral edema. Neurologic: Patient awake alert and oriented x 3, speech is clear Skin: Warm, dry, no rash EMERGENCY DEPARTMENT COURSE/MDM: This patient was evaluated and appeared to be in no significant distress. IV access was obtained and laboratory work was drawn. The patient was placed on the cardiac tech and noted to be in a sinus rhythm with a first-degree AV block. Head CT was performed and reveals no evidence of acute intracranial abnormality. EKG reveals a sinus rhythm with a first-degree AV block, right bundle branch block. No acute ischemic change identified. Laboratory work is fairly reassuring with the exception of a mildly depleted magnesium. This was repleted with 2 g of IV magnesium. Given that the patient has a [place], significant history of decreased ejection fraction and now a syncopal episode while off of the [place], patient's case was discussed with the hospitalist service for further evaluation and management. Patient and his have expressed an understanding of the plan and agreed. MONITORING: An order for cardiac monitoring was placed and the patient is noted to be in a sinus rhythm with a first-degree AV block at 57 beats per minute. RADIOLOGY: Head CT per radiology reveals no evidence of acute intracranial abnormality. EKG: To my interpretation reveals a sinus rhythm with first-degree AV block at 64 bpm. Left axis deviation, right bundle branch block. QTc of 534. DISPOSITION: Admission Past Med/Surg History Problem List (Updated 03/07/24 @ 11:39 by Bethanie Justice MD) Decreased cardiac ejection fraction (Acute) H/O ventricular fibrillation (Acute) Syncope (Acute) Back pain (Acute) LBBB (left bundle branch block) Hypothyroid Hypotension Syncope Severe aortic stenosis (Acute) CAD (coronary artery disease) Bilateral carpal tunnel syndrome Right carpal tunnel syndrome Right trigger finger got injection Vitamin D deficiency Anemia (Acute) Aortic valve sclerosis (Chronic) follows with Dr. Velasquez Diabetes mellitus, type II (Chronic) NIDDM Dyslipidemia (Chronic) HTN (hypertension) (Chronic) Medical History Bacteremia due to Gram-negative bacteria Sepsis Hemorrhagic shock Cardiogenic shock Complicated urinary tract infection Hematuria Hyperglycemia due to type 2 diabetes mellitus Septic shock Emphysematous cystitis Generalized weakness Acute hypotension Aortic valve stenosis determined by imaging Ventricular fibrillation Respiratory failure Cardiac arrest GI bleed Aortic valve sclerosis followed with Dr Velasquez Diabetes mellitus, type 2 NIDDM History of anemia r/t GI bleed in 11/2018. EGD and x5 units of blood History of GI bleed (11/2018) Hypertension Hyperlipidemia History of COVID-29 Nov 2021 > not hospitalized Surgical History S/P coronary angioplasty S/P carpal tunnel release (05/15/23) right History of left cataract extraction History of tooth extraction History of tonsillectomy History of esophagogastroduodenoscopy (EGD) 12/04/2018. propofol no issues. History of colonoscopy 10/2010 colonoscopy: Sigmoid diverticulosis Family History Father Diabetes Bladder cancer Mother Diabetes Other No family history of adverse response to anesthesia Social History Smoking Status: Never smoker Tobacco Type: Cigarettes Second Hand Exposure: No; Do You Dip or Chew Tobacco: No; Hx Alcohol Use: No Hx Substance Use: No Preferred Language: Greenlandic Communication Ability: Effective Twister Operator Required: No Beliefs That Will Affect Care: None and Holiness Current Living Situation: Spouse Feels Safe at Home: Yes Assistive Devices: Cane, Glasses, Hearing Aid - Bilateral and Walker Allergies Allergies Allergy/AdvReac Type Severity Reaction Status Date / Time No Known Allergies Allergy Verified 03/02/24 20:54 Home Meds Home Medications Medication Instructions Recorded Confirmed atorvastatin 40 mg tablet 40 mg PO QAM 12/03/18 01/17/24 cholecalciferol (vitamin D3) 25 1,000 unit PO QAM 12/03/18 01/17/24 mcg (1,000 unit) capsule ascorbic acid (vitamin C) 125 mg 125 mg PO DAILY 01/07/24 01/17/24 chewable tablet (Vitamin C) cyanocobalamin (vitamin B-12) 100 100 mcg PO DAILY 01/07/24 01/17/24 mcg tablet glipizide 5 mg tablet, extended 5 mg PO QAM 01/07/24 01/17/24 release 24 hr amiodarone 200 mg tablet 200 mg PO DAILY 01/17/24 01/17/24 clopidogrel 75 mg tablet 75 mg PO DAILY 01/17/24 01/17/24 metoprolol succinate 25 mg 25 mg PO DAILY 01/17/24 01/17/24 tablet,extended release 24 hr sacubitril 24 mg-valsartan 26 mg 1 tab PO BID 01/17/24 01/17/24 tablet (Entresto) spironolactone 25 mg tablet 12.5 mg PO DAILY 01/17/24 01/17/24 Previous Rx's Medication Instructions Recorded aspirin 81 mg chewable tablet 81 mg PO QAM #0 tabs 01/08/24 (Children's Aspirin) lidocaine 5 % topical patch 1 patch topical DAILY #15 ea 03/06/24 (Lidoderm) tramadol 50 mg tablet 50 mg PO Q8H PRN pain #6 tabs 03/06/24 Results & Data (ED) Vital Signs Vital Signs - 24 hr 03/02/24 16:00 03/02/24 16:20 03/02/24 16:30 Temperature 36.6 C Temperature Source Oral Pulse Rate 65 Pulse Rhythm Regular Pulse Strength Normal Respiratory Rate 20 Respiratory Effort / Characteristics Non-Labored Respiratory Depth Normal Respiratory Pattern Regular Blood Pressure 121/56 L Blood Pressure Mean 77 Blood Pressure Position Lying Pulse Oximetry 94 100 Oxygen Delivery Method Room Air Room Air Room Air Oxygen Flow Rate 100 Sepsis Recent Fever Within 48 Hours No Sepsis New/Unexplained Change in Mental Status N/A Sepsis Action Taken by Nursing No Action Required 03/02/24 16:38 Temperature Temperature Source Pulse Rate 64 Pulse Rhythm Pulse Strength Respiratory Rate Respiratory Effort / Characteristics Respiratory Depth Respiratory Pattern Blood Pressure Blood Pressure Mean Blood Pressure Position Pulse Oximetry Oxygen Delivery Method Oxygen Flow Rate Sepsis Recent Fever Within 48 Hours Sepsis New/Unexplained Change in Mental Status Sepsis Action Taken by Prison Medications Current Medication List: was personally reviewed by me Laboratory Data Attestation: I reviewed the patient's lab results. 03/03/24 05:44 03/03/24 05:44 Lab Results 03/02/24 Range/Units 16:20 WBC 6.32 (4.8-10.8) K/ul RBC 3.43 L (4.70-6.10) M/uL Hgb 8.9 L (14.0-18.0) g/dl Hct 28.3 L (42.0-52.0) % MCV 82.5 (80.0-100.0) fL MCH 25.9 (25.0-34.0) pg MCHC 31.4 L (32.0-36.0) g/dL RDW Std Deviation 44.5 (36.4-46.3) fL RDW Coeff of Erendira 14.7 H (11.5-14.5) % Plt Count 223 (130-400) K/uL MPV 9.3 L (9.4-12.4) fL Immature Gran % (Auto) 0.3 % Neut % (Auto) 70.4 % Lymph % (Auto) 17.9 % [place] % (Auto) 10.3 % Eos % (Auto) 0.8 % Baso % (Auto) 0.3 % Neut # (Auto) 4.45 (1.40-6.50) K/uL Lymph # (Auto) 1.13 L (1.20-3.40) K/uL [place] # (Auto) 0.65 H (0.11-0.59) K/uL Eos # (Auto) 0.05 (0.00-0.50) K/uL Baso # (Auto) 0.02 (0.00-0.20) K/uL Immature Gran # (Auto) 0.02 (0.01-0.20) K/uL Sodium 135 L (136-145) mmol/L Potassium 4.1 (3.5-5.1) mmol/L Chloride 103 (98-107) mmol/L Carbon Dioxide 23 (21-32) mmol/L Anion Gap 9 (3-11) BUN 15 (6-23) mg/dl Creatinine 0.86 (0.6-1.4) mg/dl Est Cr Clr Drug Dosing 68.1 ml/min eGFR 85.38 BUN/Creatinine Ratio 17.4 (10-20) Glucose 147 H (70-99(Fasting)) mg/dl Calcium 8.7 (8.6-10.3) mg/dl Magnesium 1.4 L (1.7-2.4) mg/dl Total Bilirubin 0.4 (0.2-1.0) mg/dl AST 22 (13-39) U/L ALT 23 (7-52) U/L Alkaline Phosphatase 48 (34-104) U/L Troponin I High Sens 7.3 (0-20) pg/ml Total Protein 6.3 (6.0-8.3) gm/dl Albumin 3.9 (3.4-5.0) gm/dl Globulin 2.4 L (2.5-4.0) gm/dl Albumin/Globulin Ratio 1.6 (0.9-2) TSH 8.195 H (0.300-4.500) uIu/ml Free T4 1.15 (0.61-1.60) ng/dl Administered Medications Discontinued Medications Amiodarone HCl (Amiodarone 200 Mg Tab) 200 mg PO DAILY ALIX Stop: 04/02/24 08:59 Last Admin: 03/03/24 09:20 Dose: 200 mg Documented By: DL Aspirin (Aspirin 81 Mg Ectab) 81 mg PO QA ALIX Stop: 04/02/24 08:59 Last Admin: 03/03/24 09:19 Dose: 81 mg Documented By: BERNADETTE Atorvastatin Calcium (Atorvastatin 40 Mg Tab) 40 mg PO QAM ALIX Stop: 04/02/24 08:59 Last Admin: 03/03/24 09:20 Dose: 40 mg Documented By: BERNADETTE Clopidogrel Bisulfate (Clopidogrel Bisulfate 75 Mg Tab) 75 mg PO DAILY ALIX Stop: 04/02/24 08:59 Last Admin: 03/03/24 09:19 Dose: 75 mg Documented By: BERNADETTE Cyanocobalamin (Cyanocobalamin (B-12) 100 Mcg Tablet) 100 mcg PO DAILY ALIX Stop: 04/02/24 08:59 Last Admin: 03/03/24 09:19 Dose: 100 mcg Documented By: BERNADETTE Empagliflozin (Empagliflozin 10 Mg Tab) 10 mg PO DAILY [facility]IX Stop: 04/02/24 08:59 Last Admin: 03/03/24 10:34 Dose: Not Given Documented By: BERNADETTE Magnesium Sulfate/Dextrose (Magnesium Sulfate / D5w) 1 gm in 100 mls @ 200 mls/hr IV Q30M ALIX Stop: 03/02/24 18:02 Last Infusion: 03/02/24 18:45 Dose: Infused Documented By: Admin: 03/02/24 18:07 Dose: 200 mls/hr Documented By: Infusion: 03/02/24 18:03 Dose: Infused Documented By: Admin: 03/02/24 17:33 Dose: 200 mls/hr Documented By: BERE Magnesium Sulfate/Dextrose (Magnesium Sulfate / D5w) 1 gm in 100 mls @ 50 mls/hr IV Q2H ALIX Stop: 03/03/24 00:29 Last Infusion: 03/03/24 00:35 Dose: Infused Documented By: Admin: 03/02/24 22:30 Dose: 50 mls/hr Documented By: Infusion: 03/02/24 22:30 Dose: Infused Documented By: Admin: 03/02/24 20:40 Dose: 50 mls/hr Documented By: Infusion: 03/02/24 20:40 Dose: Infused Documented By: Admin: 03/02/24 18:45 Dose: 50 mls/hr Documented By: PILY Insulin Aspart (Insulin Aspart Per Unit Charge) 0 units SC ACHS ALIX Stop: 04/01/24 20:59 Last Admin: 03/03/24 12:16 Dose: 2 units Documented By: BERNADETTE Co-signed By: ROSE Admin: 03/03/24 09:18 Dose: 4 units Documented By: BERNADETTE Co-signed By: ROSE Admin: 03/02/24 21:42 Dose: Not Given Documented By: BERE Metoprolol Succinate (Metoprolol Succ 25mg Ext Rel Tab) 25 mg PO DAILY [facility] Stop: 04/02/24 08:59 Last Admin: 03/03/24 09:20 Dose: 25 mg Documented By: BERNADETTE Sacubitril/Valsartan (Valsartan/Sacubitril 26/24mg Tab) 0.5 tab PO BID [facility] Stop: 04/01/24 20:59 Last Admin: 03/03/24 09:19 Dose: 0.5 tab Documented By: Admin: 03/02/24 21:45 Dose: 0.5 tab Documented By: BERE Vitamin D (Cholecalciferol 25 Mcg (1000 Units) Tab) 25 mcg PO QAM [facility] Stop: 04/02/24 08:59 Last Admin: 03/03/24 09:19 Dose: 25 mcg Documented By: BERNADETTE Discharge Plan Visit Data Chief Complaint: Syncope Stated Complaint: SYNCOPE ED Provider: Bethanie Justice Discharge Problem: Severe aortic stenosis, Syncope, H/O ventricular fibrillation, Decreased cardiac ejection fraction Patient Disposition: Admitted As Inpatient Discharge Instructions Interventions: ED Discharge Assessment Last Done: 03/02/24 20:43 Discharge Problem: Syncope Qualifiers: Syncope type: unspecified Qualified Code(s): R55 - Syncope and collapse
[2024-03-03 07:14] LABS: Hematocrit (blood only) 28.4 % (42.0-52.0); Hemoglobin 8.8 g/dl (14.0-18.0); Mean Corpuscular Hemoglobin 25.7 pg (25.0-34.0); Mean Platelet Volume 9.5 fL (9.4-12.4); Platelet Count 238 K/uL (130-400); RDW Coefficient of Variation 14.7 % (11.5-14.5); RDW Standard Deviation 44.7 fL (36.4-46.3); Red Blood Count 3.42 M/uL (4.70-6.10); White Blood Count 6.03 K/ul (4.8-10.8)
[2024-03-03 07:52] LABS: BUN Creatinine Ratio 18.4 (10-20); Calcium 8.6 mg/dl (8.6-10.3); Creatinine Clr Calc Pharmacy 77.1 ml/min; Magnesium 2.1 mg/dl (1.7-2.4); Potassium 4.1 mmol/L (3.5-5.1)
[2024-03-03] MEDS: CLOPIDOGREL BISULFATE 75 MG TAB PO SCH (09:19)
[2024-03-03] MEDS: ASPIRIN 81 MG ECTAB PO SCH (09:19)
[2024-03-03] MEDS: CYANOCOBALAMIN (B-12) 100 MCG TABLET PO SCH (09:19)
[2024-03-03] MEDS: CHOLECALCIFEROL 25 MCG (1000 UNITS) TAB PO SCH (09:19)
[2024-03-03] MEDS: EMPAGLIFLOZIN 10 MG TAB PO SCH (09:19)
[2024-03-03] MEDS: METOPROLOL SUCC 25MG EXT REL TAB PO SCH (09:20)
[2024-03-03] MEDS: ATORVASTATIN 40 MG TAB PO SCH (09:20)
[2024-03-03] MEDS: AMIODARONE 200 MG TAB PO SCH (09:20)
[2024-03-03 10:40] VITALS: BP 131/65; PULSE 61; RESP 18; TEMP 97.5; O2SAT 99
--- NOTE | 2024-03-03 11:53 | Cardiology Consultation ---
Date of Consultation March 03, 2024 Assessment & Plan (1) Syncope: (2) Severe aortic stenosis: (3) CAD (coronary artery disease): (4) LBBB (left bundle branch block): Plan Complex 83-year-old male with underlying cardiac issues as described who suffered a transient syncopal event following contrast administration for CT urography. Prompt return to baseline. No signs of persistent arrhythmia or hemodynamic instability. No evidence of myocardial infarction and echocard iogram with reduced ejection fraction but not significantly changed from prior studies. Syncopal event appears to be multifactorial including transient vasovagal event. No evidence of acute anaphylactic response. Recommendations: Patient stable for discharge to home with sedentary activity. Would reduce metoprolol succinate back to 25 mg/day Keep upcoming appointment with valve clinic on 03/23/2023 History of Present Illness Reason for Consultation: Syncope Requesting Physician: [facility] hospitalist Attending Physician: Avelino Cardenas MD History of Present Illness Patient is a complex 83-year-old male with underlying cardiac issues which include 1. Calcific aortic stenosis with low-flow severe aortic stenosis 2. Chronic left bundle branch block 3. Severe multivessel coronary disease by cardiac catheterization 01/10/2024,undergone multivessel coronary invention on 01/13/2024 including 3 overlapping stents to the left anterior descending single stent to left circumflex and 2 overlapping stents to the right coronary artery on dual antiplatelet therapy 4. Chronic anemia secondary to urinary blood loss 5. Type 2 diabetes mellitus 6. 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 He ate a "spicy meal before" and after receiving contrast developed transient loss of consciousness with spontaneous recovery. Due to concerns regarding patient's multiple underlying cardiac issues patient referred for observation and inpatient setting. This morning patient feeling well denies any chest pains, dizziness or lightheadedness. Ambulatory in room without difficulty. No orthopnea or peripheral edema. No fevers or chills. Medications recently upward titrated for heart failure management. Currently on max tolerated Entresto. Metoprolol succinate recently increased to 50 mg/day Allergies Allergy/AdvReac Type Severity Reaction Status Date / Time No Known Allergies Allergy Verified 03/02/24 20:54 Home Medications Medication Instructions Recorded Confirmed Type atorvastatin 40 mg tablet 40 mg PO QAM 12/03/18 01/17/24 History cholecalciferol (vitamin D3) 25 1,000 unit PO QAM 12/03/18 01/17/24 History mcg (1,000 unit) capsule ascorbic acid (vitamin C) 125 mg 125 mg PO DAILY 01/07/24 01/17/24 History chewable tablet (Vitamin C) cyanocobalamin (vitamin B-12) 100 100 mcg PO DAILY 01/07/24 01/17/24 History mcg tablet glipizide 5 mg tablet, extended 5 mg PO QAM 01/07/24 01/17/24 History release 24 hr aspirin 81 mg chewable tablet 81 mg PO QAM #0 tabs 01/08/24 01/17/24 Rx (Children's Aspirin) amiodarone 200 mg tablet 200 mg PO DAILY 01/17/24 01/17/24 History clopidogrel 75 mg tablet 75 mg PO DAILY 01/17/24 01/17/24 History metoprolol succinate 25 mg 25 mg PO DAILY 01/17/24 01/17/24 History tablet,extended release 24 hr sacubitril 24 mg-valsartan 26 mg 1 tab PO BID 01/17/24 01/17/24 History tablet (Entresto) spironolactone 25 mg tablet 12.5 mg PO DAILY 01/17/24 01/17/24 History levofloxacin 750 mg tablet 750 mg PO DAILY #8 tabs 01/23/24 Rx Patient History Medical History Bacteremia due to Gram-negative bacteria Sepsis Hemorrhagic shock Cardiogenic shock Complicated urinary tract infection Hematuria Hyperglycemia due to type 2 diabetes mellitus Septic shock Emphysematous cystitis Generalized weakness Acute hypotension Aortic valve stenosis determined by imaging Ventricular fibrillation Respiratory failure Cardiac arrest GI bleed Aortic valve sclerosis followed with Dr Velasquez Diabetes mellitus, type 2 NIDDM History of anemia r/t GI bleed in 11/2018. EGD and x5 units of blood History of GI bleed (11/2018) Hypertension Hyperlipidemia History of COVID-29 Nov 2021 > not hospitalized Surgical History S/P coronary angioplasty S/P carpal tunnel release (05/15/23) right History of left cataract extraction History of tooth extraction History of tonsillectomy History of esophagogastroduodenoscopy (EGD) 12/04/2018. propofol no issues. History of colonoscopy 10/2010 colonoscopy: Sigmoid diverticulosis Family History Father Diabetes Bladder cancer Mother Diabetes Other No family history of adverse response to anesthesia Social History Smoking Status: Former smoker Tobacco Type: Cigarettes Second Hand Exposure: No; Do You Dip or Chew Tobacco: No; Hx Alcohol Use: No Hx Substance Use: No Preferred Language: Gu[place]ian Communication Ability: Effective Director Of Strategic Initiatives Required: No Beliefs That Will Affect Care: None and Christian Current Living Situation: Spouse Feels Safe at Home: Yes Assistive Devices: Cane, Glasses, Hearing Aid - Bilateral and Walker Review of Systems Review of Systems: All systems reviewed & are unremarkable except as noted in HPI & below Physical Exam Constitutional: no acute distress Eyes: PERRL, conjunctivae normal, anicteric sclerae ENMT: external ear and nose normal, oropharynx normal Respiratory: normal respiratory effort, lungs clear to auscultation Cardiovascular: Rate/Rhythm: regular rate and regular rhythm Heart Sounds: + murmur (Harsh grade 3/6 systolic murmur with obscured S2) Vessels: no JVD Extremities: no edema Gastrointestinal (Abdomen): normal bowel sounds, soft, nontender, no hepatosplenomegaly Skin: no rashes, warm and dry Results & Data Vital Signs (Past 12 Hours) Vital Signs Temp Pulse Pulse Resp BP Pulse Ox O2 Del Method 03/03/24 10:39 36.4 C L 61 18 131/65 99 Room Air 03/03/24 10:36 Room Air 03/03/24 07:47 57 L 03/03/24 07:00 36.7 C 58 L 16 130/60 100 Room Air 03/03/24 04:41 36.4 C L 56 L 18 132/66 97 Room Air Laboratory Results Laboratory Results - last 24 hr 03/02/24 03/02/24 03/02/24 16:20 20:01 21:32 WBC 6.32 RBC 3.43 L Hgb 8.9 L Hct 28.3 L MCV 82.5 MCH 25.9 MCHC 31.4 L RDW Std Deviation 44.5 RDW Coeff of Erendira 14.7 H Plt Count 223 MPV 9.3 L Immature Gran % (Auto) 0.3 Neut % (Auto) 70.4 Lymph % (Auto) 17.9 [place] % (Auto) 10.3 Eos % (Auto) 0.8 Baso % (Auto) 0.3 Neut # (Auto) 4.45 Lymph # (Auto) 1.13 L [place] # (Auto) 0.65 H Eos # (Auto) 0.05 Baso # (Auto) 0.02 Immature Gran # (Auto) 0.02 Sodium 135 L Potassium 4.1 Chloride 103 Carbon Dioxide 23 Anion Gap 9 BUN 15 Creatinine 0.86 Est Cr Clr Drug Dosing 68.1 eGFR 85.38 BUN/Creatinine Ratio 17.4 Glucose 147 H POC Glucose 162 H Calcium 8.7 Magnesium 1.4 L Total Bilirubin 0.4 AST 22 ALT 23 Alkaline Phosphatase 48 Troponin I High Sens 7.3 Total Protein 6.3 Albumin 3.9 Globulin 2.4 L Albumin/Globulin Ratio 1.6 TSH 8.195 H Free T4 1.15 Urine Color Yellow Urine Appearance Cloudy A Urine pH 5.5 Ur Specific [place] > 1.045 H Urine Protein Trace H Urine Glucose (UA) Negative Urine Ketones Trace H Urine Blood 1+ H Urine Nitrite Negative Urine Bilirubin Negative Urine Urobilinogen Negative Ur Leukocyte Esterase 3+ H Urine WBC (Auto) >50 H Urine RBC (Auto) 3-5 H U Hyaline Cast (Auto) 0-2 U Epithel Cells (Auto) 0-2 Urine Bacteria (Auto) None Seen 03/03/24 03/03/24 03/03/24 05:44 07:20 10:56 WBC 6.03 RBC 3.42 L Hgb 8.8 L Hct 28.4 L MCV 83.0 MCH 25.7 MCHC 31.0 L RDW Std Deviation 44.7 RDW Coeff of Erendira 14.7 H Plt Count 238 MPV 9.5 Immature Gran % (Auto) Neut % (Auto) Lymph % (Auto) [place] % (Auto) Eos % (Auto) Baso % (Auto) Neut # (Auto) Lymph # (Auto) [place] # (Auto) Eos # (Auto) Baso # (Auto) Immature Gran # (Auto) Sodium 136 Potassium 4.1 Chloride 103 Carbon Dioxide 27 Anion Gap 6 BUN 14 Creatinine 0.76 Est Cr Clr Drug Dosing 77.1 eGFR 88.63 BUN/Creatinine Ratio 18.4 Glucose 104 H POC Glucose 126 H 182 H Calcium 8.6 Magnesium 2.1 Total Bilirubin AST ALT Alkaline Phosphatase Troponin I High Sens Total Protein Albumin Globulin Albumin/Globulin Ratio TSH Free T4 Urine Color Urine Appearance Urine pH Ur Specific [place] Urine Protein Urine Glucose (UA) Urine Ketones Urine Blood Urine Nitrite Urine Bilirubin Urine Urobilinogen Ur Leukocyte Esterase Urine WBC (Auto) Urine RBC (Auto) U Hyaline Cast (Auto) U Epithel Cells (Auto) Urine Bacteria (Auto) ECG Additional Comments: EKG sinus rhythm with 1st degree AV block, left bundle branch block (1) Syncope Syncope type: unspecified Qualified Code(s): R55 - Syncope and collapse (3) CAD (coronary artery disease) Coronary Disease-Associated Artery/Lesion type: [place] artery [place] vs. transplanted heart: [place] heart Associated angina: without angina Qualified Code(s): I25.10 - Atherosclerotic heart disease of [place] coronary artery without angina pectoris
--- NOTE | 2024-03-03 13:09 | Discharge Summary ---
Discharge Summary Date of Service March 03, 2024 Principal Dx & Hospital Course #1 = Principal Diagnosis (1) Syncope: -patient had syncopal episode of unknown etiology -patient has significant risk factors for arrythmia (given EF, recent stent placement), orthostatic hypotension (given aortic stenosis, BP meds), other vasovagal syncope (on beta blockers) -less likely include CVA (given quick return to consciousness), seizure (possible but other causes more likely), less likely metabolic derangements/autonomic other insufficiency -patient currently asymptomatic -TSH WNL, A1c 7, on statin -CT head unremarkable Plan: -likely vasovagal in nature -appreciate cards consult and recs (2) CAD (coronary artery disease): -multivessel coronary invention on 01/13/2024 including 3 overlapping stents to the left anterior descending single stent to left circumflex and 2 overlapping stents to the right coronary artery all drug-eluting -currently on DAPT given drug eluting stent placement 1.5 months prior Plan: -continue DAPT therapy -continue statin -restart home meds (3) Severe aortic stenosis: -makes patient very preload dependent -patient appears euvolemic on exam (JVP at baseline, no edema, labs w/o evidence of dehydration) Plan: -encourage PO intake (4) Hypotension: -patient is on many medications that can lower BP -BP also low in advanced HFrEF (EF 20%) -diabetes could also play role in worse autonomia Plan: -see above, hold some BP meds -trend daily -encourage PO intake -may benefit from midodrine outside hospital pending frequency of events (5) Ventricular fibrillation: -hx of vfib arrest outside of hospital in December Plan: -continue amiodarone -continue lifevest (6) Diabetes mellitus, type II: -A1c relatively controlled at 7 Plan: -SSI ordered and ACHS checks (7) Dyslipidemia: -continue statin (8) Hypothyroid: -subclinical hypothyroidism, elevated TSH w/ normal T4 -could be high due to significant recent hospitalizations and stressors Plan: -f/u TSH in 3 months Notes For Next Care Provider 83-year-old male with a very complicated cardiac history who presented for syncope entering a CT scanner. Cardiology responded onsite, recommended patient being taken to the ED patient admitted to medicine for observation and further workup. Workup was unremarkable. Patient doing well. Cardiology consulted, feel this is vasovagal in nature and no further workup required. Patient medically stable for discharge. Medication Changes From Visit -none Admission HPI Per Admitting Provider 83-year-old male who has a significant past medical history of CAD (recent 3 vessel PCI, c/b f/u admission for shock), hx of out of hospital vfib arrest 2023, acute chronic HFrEF with EF of 20% and current LifeVest in place, LBBB, severe aortic valve stenosis, HTN, HLD, T2DM and history of tobacco abuse who presented for syncope. He was told to drink IV contrast, entered the CT scanner he lost consciousness, and pulled out his IV. He then spontaneously awakened as his mental status improved. He was sent to the ED here for further evaluation, and now admitted to medicine for further workup. Patient seen and examined at bedside. He states this is the first time he has had a syncopal episode. He the last thing he remembers is getting into the CT scanner, he remembers them telling him to hold his breath, and then the next thing he remembers is medical personnel surrounding him including Dr. Velasquez. He states he felt confused when he woke up. He states he did eat a sob before going to for the scan. He states he has nausea and vomiting that started when he woke up after the incident in the CT scanner. Denies shortness of breath, chest pain, other symptoms at this time. He feels he was doing well before this incident. CODE STATUS was discussed at length with patient. Risks and benefits of resuscitation were discussed at length we discussed that the patient is currently wearing a LifeVest. He states he is okay with the life last and okay being shocked, but is not interested in chest compressions or intubation in the future. He states he "does not want to go through what he did again". Denies alcohol use, drug use, tobacco use. Feels well supported at home. Still does many of his own ADLs. Discharge Exam Gen: A&O 3 NAD HEENT: NCAT, EOMI, not icteric. External ears normal. No rhinorrhea. Moist mucous membranes. Hard of hearing Neck: Supple, full range of motion, no observable masses, No meningeal sign. Lungs: No Respiratory distress. CV: RRR, no edema. Systolic diastolic murmur noted, S3 noted. Abdomen: Soft, nondistended, No rebound tenderness. MSK: No joint swelling, no redness. Skin: No rashes, petechiae, lesions. Normal color per patient. Neuro: Normal Gait, Grossly intact. Psych: Appropriate for situation. Updated Medication List Medication Instructions Recorded Confirmed Type atorvastatin 40 mg tablet 40 mg PO QAM 12/03/18 01/17/24 History cholecalciferol (vitamin D3) 25 1,000 unit PO QAM 12/03/18 01/17/24 History mcg (1,000 unit) capsule ascorbic acid (vitamin C) 125 mg 125 mg PO DAILY 01/07/24 01/17/24 History chewable tablet (Vitamin C) cyanocobalamin (vitamin B-12) 100 100 mcg PO DAILY 01/07/24 01/17/24 History mcg tablet glipizide 5 mg tablet, extended 5 mg PO QAM 01/07/24 01/17/24 History release 24 hr aspirin 81 mg chewable tablet 81 mg PO QAM #0 tabs 01/08/24 01/17/24 Rx ([facility] Aspirin) amiodarone 200 mg tablet 200 mg PO DAILY 01/17/24 01/17/24 History clopidogrel 75 mg tablet 75 mg PO DAILY 01/17/24 01/17/24 History metoprolol succinate 25 mg 25 mg PO DAILY 01/17/24 01/17/24 History tablet,extended release 24 hr sacubitril 24 mg-valsartan 26 mg 1 tab PO BID 01/17/24 01/17/24 History tablet (Entresto) spironolactone 25 mg tablet 12.5 mg PO DAILY 01/17/24 01/17/24 History levofloxacin 750 mg tablet 750 mg PO DAILY #8 tabs 01/23/24 Rx Hospital Stay Data Consultations 03/02/24 18:09 ED Decision to Admit Stat 03/02/24 20:43 Consult Cardiology Routine Diagnostic Imagining Performed 03/02/24 18:21 CT head/brain wo con Stat Pending Results Patient Have Any Pending Studies at Discharge: No Discharge Instructions Given to Patient (Per Discharging Provider) 1. Please stay hydrated. Total Time Total Time Spent Total Time Spent (In Minutes): I spent a total of 35 minutes coordinating, documenting, and providing care for this patient excluding time spent in the performance of separately billed services.
--- NOTE | 2024-03-03 13:53 | Electrocardiogram Report ---
Test Reason : Blood Pressure : */* mmHG Vent. Rate : 64 BPM Atrial Rate : 64 BPM P-R Int : 232 ms QRS Dur : 188 ms QT Int : 518 ms P-R-T Axes : 39 -51 118 degrees QTcB Int : 534 ms Sinus rhythm with 1st degree A-V block Left axis deviation Left bundle branch block Abnormal ECG When compared with ECG of 17-Jan-2024 11:48, Fusion complexes are no longer Present [place] interval has increased Vent. rate has decreased by 35 bpm Confirmed by Margarito Mike ([id number]) on 03/03/2024 1:53:06 PM Referred By: REFERRED SELF Confirmed By: Margarito Mike
== END 2024-03-03 14:33 | disposition home or self-care (01) | DRG 312 ==
LOC: ED 15:58 → EDINP 18:18 → 2S 20:43

== ENCOUNTER 2024-09-05 16:44 | Observation (INO) ==
[2024-09-05] MEDS: TXA 10% Non-IV Routes 100 MG/ML VIAL TOP ONE (17:28)
[2024-09-05] MEDS: LIDOCAINE 1%/EPINEPHRINE 1:100,000 50 ML VIAL INFIL ONE (17:28)
[2024-09-05 18:14] LABS: Hematocrit (blood only) 23.9 % (42.0-52.0); Hemoglobin 7.6 g/dl (14.0-18.0); Immature Granulocytes # (auto) 0.02 K/uL (0.01-0.20); Immature Granulocytes % (auto) 0.5 %; Mean Corpuscular Hemoglobin 29.3 pg (25.0-34.0); Mean Corpuscular Volume 92.3 fL (80.0-100.0); Platelet Count 185 K/uL (130-400); RDW Standard Deviation 44.3 fL (36.4-46.3); Red Blood Count 2.59 M/uL (4.70-6.10); White Blood Count 4.33 K/ul (4.8-10.8)
--- NOTE | 2024-09-05 18:23 | Emergency Department Note ---
Impression & Plan Hemorrhage from mouth ED Provider Note NAME: GER MUNOZ AGE: 84 SEX: Male INFORMANT: Patient and ED PROVIDER(S): Johnathan Green MD CHIEF COMPLAINT: Bleeding PLAN: Disposition: Admitted Outpatient prescription management: none Referral: None MEDICAL DECISION MAKING: The patient presented because of postoperative bleeding. He was evaluated and direct pressure was unsuccessful to control bleeding. He was coming from the right lower incisor extraction site. Discussed options with the patient. He received a 1 mL lidocaine with epinephrine injection and a topical compression gauze with TXA was applied. The patient continued to bleed through the send TXA reapplied. I did consult with Dr. Arciniega of oral surgery. He presented to the emergency department for intervention. He did perform surgical hemostasis on the patient. Patient's hemoglobin is baseline low and he has dropped slightly. Given his cardiac history, bleeding that occurred and management required to obtain hemostasis further evaluation management in the hospital as deemed appropriate. Dr. Arciniega is in agreement and will follow along with the patient. Consultation was made with the [facility] hospitalist service, Dr. Sellers. Patient was evaluated in the ER and admitted for further management Care/management discussed with: Toni rojas facial surgery, hospitalist, edi manager Level of care consideration(s): After review of the information above and other included data, I feel the patient requires escalation of care to admission Triage Nursing notes: reviewed and agree them. Vital Signs: reviewed and remarkable for mild hypertension Additional History obtained from: Patient's regarding his surgery Chronic Medical/Social Conditions affecting care: CAD, Plavix use Prior/ Outside/ External records reviewed: none Differential Diagnosis: Postoperative hemorrhage, complication secondary to Plavix use, anemia, infection, soft tissue injury, vascular compromise, compartment syndrome, as well as other pathologies. Diagnostics, independently interpreted by me: ECG: none Cardiac Monitoring: none Medical decision rules: none Imaging studies: Deferred HPI: 84 year old Male arrives for evaluation of postoperative bleeding. The patient had dental extraction done on August 28 at [facility]. He states he is on Plavix. He denies any Coumadin or Eliquis use. Patient noted some oozing yesterday. He states that several sutures had fallen out. He had more bleeding occurred today. Bleeding persisted despite pressure. Patient came to the ER for further evaluation and management. Patient denies any fever, mouth pain, difficulty swallowing, bruising, other bleeding or other complaints. PAST MEDICAL HISTORY: See Below, CAD PAST SURGICAL HISTORY: See Below, multiple cardiac stents SOCIAL HISTORY: See Below, HOME MEDICATIONS: See Below ALLERGIES: See Below VITALS: See Below PHYSICAL EXAMINATION: GENERAL: Awake, alert, well-appearing, in no distress HENT: Normocephalic, atraumatic. Oropharynx examination reveals multiple dental extraction sites. The right lower lateral incisor area extraction site has active bleeding present. No swelling or purulence. Floor of mouth is soft and tongue is normal. EYES: Normal conjunctiva. Sclera non-icteric. NECK: Inspection normal. Non-tender. Supple. No nuchal rigidity. FROM. No masses. RESPIRATORY: Clear to auscultation. No wheezes. No rales. Normal respiratory effort. CARDIAC: Normal rate. Normal rhythm. Systolic ejection murmur. GI: Soft, non-distended. No tenderness to palpation. No rebound or guarding. No masses. RECTAL: Deferred. MUSCULOSKELETAL: Atraumatic. LOWER EXTREMITIES: Calves are equal size bilaterally and non-tender. Trace edema. No discoloration. NEURO: Normal sensorium. No sensory or motor deficits noted. SKIN: No rash or jaundice noted. No ecchymosis or petechiae. PROCEDURES: none CRITICAL CARE: none OBSERVATION NOTE: none Past Med/Surg History Problem List (Updated 09/05/24 @ 21:41 by Luis Daniel Arciniega DMD) Bleeding post tooth extraction Hemorrhage from mouth (Acute) Decreased cardiac ejection fraction (Acute) H/O ventricular fibrillation (Acute) Syncope (Acute) LBBB (left bundle branch block) Hypothyroid Hypotension Syncope Severe aortic stenosis (Acute) CAD (coronary artery disease) Bilateral carpal tunnel syndrome Right carpal tunnel syndrome Right trigger finger got injection Vitamin D deficiency Anemia (Acute) Aortic valve sclerosis (Chronic) follows with Dr. Velasquez Diabetes mellitus, type II (Chronic) NIDDM Dyslipidemia (Chronic) HTN (hypertension) (Chronic) Medical History Bacteremia due to Gram-negative bacteria Sepsis Hemorrhagic shock Cardiogenic shock Complicated urinary tract infection Hematuria Hyperglycemia due to type 2 diabetes mellitus Septic shock Emphysematous cystitis Generalized weakness Acute hypotension Aortic valve stenosis determined by imaging Ventricular fibrillation Respiratory failure Cardiac arrest GI bleed Aortic valve sclerosis followed with Dr Velasquez Diabetes mellitus, type 2 NIDDM History of anemia r/t GI bleed in 11/2018. EGD and x5 units of blood History of GI bleed (11/2018) Hypertension Hyperlipidemia History of COVID-29 Nov 2021 > not hospitalized Surgical History S/P coronary angioplasty S/P carpal tunnel release (05/15/23) right History of left cataract extraction History of tooth extraction History of tonsillectomy History of esophagogastroduodenoscopy (EGD) 12/04/2018. propofol no issues. History of colonoscopy 10/2010 colonoscopy: Sigmoid diverticulosis Family History Father Diabetes Bladder cancer Mother Diabetes Other No family history of adverse response to anesthesia Social History Smoking Status: Former smoker Tobacco Type: Cigarettes Second Hand Exposure: No; Do You Dip or Chew Tobacco: No; Hx Alcohol Use: No Hx Substance Use: No Preferred Language: Luxembourgish Communication Ability: Effective Radiation Physicist Required: No Beliefs That Will Affect Care: None and Rastafari Current Living Situation: Spouse Feels Safe at Home: Yes Assistive Devices: Cane, Glasses, Hearing Aid - Bilateral and Walker Allergies Allergies Allergy/AdvReac Type Severity Reaction Status Date / Time No Known Allergies Allergy Verified 03/02/24 20:54 Home Meds Home Medications Medication Instructions Recorded Confirmed amiodarone 200 mg tablet 200 mg PO DAILY 09/05/24 09/05/24 aspirin 81 mg tablet,delayed 81 mg PO DAILY 09/05/24 09/05/24 release atorvastatin 40 mg tablet 40 mg PO DAILY 09/05/24 09/05/24 clopidogrel 75 mg tablet (Plavix) 75 mg PO DAILY 09/05/24 09/05/24 glipizide 5 mg tablet, extended 5 mg PO DAILY 09/05/24 09/05/24 release 24 hr metformin 1,000 mg tablet 1,000 mg PO BID 09/05/24 09/05/24 metoprolol succinate 50 mg 25 mg PO DAILY 09/05/24 09/05/24 tablet,extended release 24 hr sacubitril 24 mg-valsartan 26 mg 0.5 tab PO BID 09/05/24 09/05/24 tablet (Entresto) spironolactone 25 mg tablet 12.5 mg PO DAILY 09/05/24 09/05/24 Results & Data (ED) Vital Signs Vital Signs - 24 hr 09/05/24 20:14 09/05/24 20:15 09/05/24 21:33 Pulse Rate 60 Pulse Rate from SpO2 Sensor 61 60 Respiratory Rate 19 Blood Pressure 168/69 H 157/73 H Blood Pressure Mean 102 101 Pulse Oximetry 92 99 98 Oxygen Delivery Method Room Air Room Air 09/05/24 22:07 09/05/24 22:12 Pulse Rate 61 61 Pulse Rate from SpO2 Sensor 60 Respiratory Rate 17 Blood Pressure 163/91 H Blood Pressure Mean 115 Pulse Oximetry 97 Oxygen Delivery Method Room Air Laboratory Data 09/06/24 05:07 09/06/24 05:07 Lab Results 09/05/24 Range/Units 18:00 WBC 4.33 L (4.8-10.8) K/ul RBC 2.59 L (4.70-6.10) M/uL Hgb 7.6 L (14.0-18.0) g/dl Hct 23.9 L (42.0-52.0) % MCV 92.3 (80.0-100.0) fL MCH 29.3 (25.0-34.0) pg MCHC 31.8 L (32.0-36.0) g/dL RDW Std Deviation 44.3 (36.4-46.3) fL RDW Coeff of Erendira 13.1 (11.5-14.5) % Plt Count 185 (130-400) K/uL MPV 9.5 (9.4-12.4) fL Immature Gran % (Auto) 0.5 % Neut % (Auto) 64.0 % Lymph % (Auto) 25.2 % [place] % (Auto) 9.2 % Eos % (Auto) 0.9 % Baso % (Auto) 0.2 % Neut # (Auto) 2.77 (1.40-6.50) K/uL Lymph # (Auto) 1.09 L (1.20-3.40) K/uL [place] # (Auto) 0.40 (0.11-0.59) K/uL Eos # (Auto) 0.04 (0.00-0.50) K/uL Baso # (Auto) 0.01 (0.00-0.20) K/uL Immature Gran # (Auto) 0.02 (0.01-0.20) K/uL RBC Morphology Unremarkable PT 10.4 (9.0-12.0) Seconds INR 1.0 (0.9-1.1) APTT 24 (21-31) Seconds PTT Ratio 0.9 Sodium 137 (136-145) mmol/L Potassium 5.3 H (3.5-5.1) mmol/L Chloride 104 (98-107) mmol/L Carbon Dioxide 27 (21-32) mmol/L Anion Gap 6 (3-11) BUN 24 H (6-23) mg/dl Creatinine 0.97 (0.6-1.4) mg/dl Est Cr Clr Drug Dosing 58.6 ml/min eGFR 76.50 BUN/Creatinine Ratio 24.7 H (10-20) Glucose 125 H (70-99(Fasting)) mg/dl Calcium 9.3 (8.6-10.3) mg/dl Total Bilirubin 0.2 (0.2-1.0) mg/dl AST 37 (13-39) U/L ALT 42 (7-52) U/L Alkaline Phosphatase 46 (34-104) U/L Total Protein 6.6 (6.0-8.3) gm/dl Albumin 3.7 (3.4-5.0) gm/dl Globulin 2.9 (2.5-4.0) gm/dl Albumin/Globulin Ratio 1.3 (0.9-2) Administered Medications Discontinued Medications Acetaminophen (Acetaminophen 500 Mg Tab) 1,000 mg PO NOW STA Stop: 09/05/24 21:34 Last Admin: 09/05/24 21:38 Dose: 1,000 mg Documented By: ZEINA Amiodarone HCl (Amiodarone 200 Mg Tab) 200 mg PO DAILY ALIX Stop: 10/06/24 08:59 Last Admin: 09/06/24 08:20 Dose: 200 mg Documented By: JOSE Aspirin (Aspirin 81 Mg Ectab) 81 mg PO DAILY ALIX Stop: 10/06/24 08:59 Last Admin: 09/06/24 08:20 Dose: 81 mg Documented By: JOSE Atorvastatin Calcium (Atorvastatin 40 Mg Tab) 40 mg PO DAILY ALIX Stop: 10/06/24 08:59 Last Admin: 09/06/24 08:20 Dose: 40 mg Documented By: JOSE Clopidogrel Bisulfate (Clopidogrel Bisulfate 75 Mg Tab) 75 mg PO DAILY ALIX Stop: 10/06/24 08:59 Last Admin: 09/06/24 08:20 Dose: 75 mg Documented By: JOSE Magnesium Sulfate/Dextrose (Magnesium Sulfate / D5w) 1 gm in 100 mls @ 50 mls/hr IV ONE ONE Stop: 09/06/24 09:14 Last Infusion: 09/06/24 10:21 Dose: Infused Documented By: Admin: 09/06/24 08:18 Dose: 50 mls/hr Documented By: JOSE Lidocaine/Epinephrine (Lidocaine 1%/Epinephrine 1:100,000 50 Ml Vial) 1 ml INFIL NOW ONE Stop: 09/05/24 17:19 Last Admin: 09/05/24 17:28 Dose: 1 ml Documented By: ZEINA Metoprolol Succinate (Metoprolol Succ 25mg Ext Rel Tab) 25 mg PO DAILY ALIX Stop: 10/06/24 08:59 Last Admin: 09/06/24 08:20 Dose: 25 mg Documented By: JOSE Miscellaneous (Surgicel Absorb Hemostat 2in X 14in) 1 each TOP ONCE ONE Stop: 09/05/24 18:01 Last Admin: 09/05/24 18:30 Dose: 1 each Documented By: DALILA Silver Nitrate/Potassium Nitrate (Silver Nitr/Potassium Nitrate Applicator) Confirm Administered Dose 1 appl .ROUTE .STK-MED ONE Stop: 09/05/24 19:55 Last Admin: 09/05/24 20:06 Dose: 1 appl Documented By: TANA Tranexamic Acid (Txa 10% Non-Iv Routes 100 Mg/Ml Vial) 1,000 mg TOP ONE ONE Stop: 09/05/24 17:19 Last Admin: 09/05/24 17:28 Dose: 1,000 mg Documented By: ZEINA Discharge Plan Visit Data Chief Complaint: Bleeding Stated Complaint: BLEEDING FROM MOUTH, ORAL SUGERGY RECENTLY ED Provider: Johnathan Green Discharge Problem: Hemorrhage from mouth Patient Disposition: Admitted As Inpatient Condition: Good Discharge Instructions Interventions: ED Discharge Assessment Last Done: 09/06/24 00:35
[2024-09-05 18:30] LABS: Alanine Aminotransferase 42.0 U/L (7-52); Albumin Globulin Ratio 1.3 (0.9-2); Alkaline Phosphatase 46.0 U/L (34-104); Anion Gap 6.0 (3-11); Bilirubin,Total 0.2 mg/dl (0.2-1.0); Blood Urea Nitrogen 24.0 mg/dl (6-23); Calcium 9.3 mg/dl (8.6-10.3); Carbon Dioxide 27.0 mmol/L (21-32); Chloride 104.0 mmol/L (98-107); Creatinine Clr Calc Pharmacy 58.6 ml/min; Globulin 2.9 gm/dl (2.5-4.0); Glucose 125.0 mg/dl (70-99(Fasting)); Potassium 5.3 mmol/L (3.5-5.1); Sodium 137.0 mmol/L (136-145); Total Protein 6.6 gm/dl (6.0-8.3)
[2024-09-05] MEDS: SURGICEL ABSORB HEMOSTAT 2IN X 14IN TOP ONE (18:30)
[2024-09-05 18:32] LABS: RBC Morphology Unremarkable
[2024-09-05 18:45] LABS: INR 1.0 (0.9-1.1); Partial Thromboplastin Time 24 Seconds (21-31); Prothrombin Time 10.4 Seconds (9.0-12.0)
[2024-09-05] MEDS: SILVER NITR/POTASSIUM NITRATE APPLICATOR ONE (20:06)
[2024-09-05] MEDS: ACETAMINOPHEN 500 MG TAB PO STA (21:38)
--- NOTE | 2024-09-05 21:41 | Oral/Maxillofacial Consult ---
Date of Consultation September 05, 2024 Assessment & Plan (1) Hemorrhage from mouth: (2) Bleeding post tooth extraction: History of Present Illness History of Present Illness Mr. Love is an 84-year-old gentleman who came to the emergency room with a chief complaint of oral bleeding. He is in line to have a transvenous aortic valve replacement, but because of multiple carious teeth, he required the extraction of all of his remaining teeth. This was accomplished about 7 to 8 days ago at [facility] in [place] through their oral surgery department. He was doing very well until early this afternoon when he started to have profuse bleeding from the lower, right socket tooth number 22. He tried some pressure at home and mouth rinsing but this did not curtail the bleeding. He was brought to the emergency room and he was accompanied by his . The emergency room staff have tried numerous techniques to control the bleeding, but none was successful. Finally at about 6 PM I was called to attend to Mr. Love. When I saw him, he was bleeding from the lower right cuspid extraction site. The tissues were quite boggy. He most likely pulled out a suture on the lower right side, causing the bleeding. The tissues were swollen, and you could see where the tissues was lacerated from the sutures being forced out. At this time I use this I gave him some local anesthesia and numbed the area. After a few minutes, I was able to use a suction device and suction out the clots within the socket. I took a small piece of Surgicel and placed it in the socket and then had them keep pressure on it. Now using a 4-0 VICRYL suture, I placed a figure of eight suture around the Surgicel to maintain its position in the socket. At this time, I let him keep pressure on the wound wound area for about 15 minutes. I came back to see him and he his bleeding was well controlled. There was a small tissue tag most likely from where a suit you got pulled out that was bleeding and I use silver nitrate to cauterize the tissue. In discussing the case with the emergency room physician, he was concerned that Mr. Love had a low hemoglobin. He feels that it would be best to admit him to the hospital on the medical service just for observation. I will see Mr. Love in the morning September 06 to make sure that he is not having any further bleeding and if that is the case and medicine feels that he can be safely discharge. We will send him home. I believe that Loco Posada will be taken care of scheduling him for his aortic valve replacement in the near future. Allergies Allergy/AdvReac Type Severity Reaction Status Date / Time No Known Allergies Allergy Verified 03/02/24 20:54 Home Medications Medication Instructions Recorded Confirmed Type atorvastatin 40 mg tablet 40 mg PO QAM 12/03/18 01/17/24 History cholecalciferol (vitamin D3) 25 1,000 unit PO QAM 12/03/18 01/17/24 History mcg (1,000 unit) capsule ascorbic acid (vitamin C) 125 mg 125 mg PO DAILY 01/07/24 01/17/24 History chewable tablet (Vitamin C) cyanocobalamin (vitamin B-12) 100 100 mcg PO DAILY 01/07/24 01/17/24 History mcg tablet glipizide 5 mg tablet, extended 5 mg PO QAM 01/07/24 01/17/24 History release 24 hr aspirin 81 mg chewable tablet 81 mg PO QAM #0 tabs 01/08/24 01/17/24 Rx (Children's Aspirin) amiodarone 200 mg tablet 200 mg PO DAILY 01/17/24 01/17/24 History clopidogrel 75 mg tablet 75 mg PO DAILY 01/17/24 01/17/24 History metoprolol succinate 25 mg 25 mg PO DAILY 01/17/24 01/17/24 History tablet,extended release 24 hr sacubitril 24 mg-valsartan 26 mg 1 tab PO BID 01/17/24 01/17/24 History tablet (Entresto) spironolactone 25 mg tablet 12.5 mg PO DAILY 01/17/24 01/17/24 History lidocaine 5 % topical patch 1 patch topical DAILY #15 ea 03/06/24 Rx (Lidoderm) tramadol 50 mg tablet 50 mg PO Q8H PRN pain #6 tabs 03/06/24 Rx Patient History Medical History Bacteremia due to Gram-negative bacteria Sepsis Hemorrhagic shock Cardiogenic shock Complicated urinary tract infection Hematuria Hyperglycemia due to type 2 diabetes mellitus Septic shock Emphysematous cystitis Generalized weakness Acute hypotension Aortic valve stenosis determined by imaging Ventricular fibrillation Respiratory failure Cardiac arrest GI bleed Aortic valve sclerosis followed with Dr Velasquez Diabetes mellitus, type 2 NIDDM History of anemia r/t GI bleed in 11/2018. EGD and x5 units of blood History of GI bleed (11/2018) Hypertension Hyperlipidemia History of COVID-29 Nov 2021 > not hospitalized Surgical History S/P coronary angioplasty S/P carpal tunnel release (05/15/23) right History of left cataract extraction History of tooth extraction History of tonsillectomy History of esophagogastroduodenoscopy (EGD) 12/04/2018. propofol no issues. History of colonoscopy 10/2010 colonoscopy: Sigmoid diverticulosis Family History Father Diabetes Bladder cancer Mother Diabetes Other No family history of adverse response to anesthesia Social History Smoking Status: Never smoker Tobacco Type: Cigarettes Second Hand Exposure: No; Do You Dip or Chew Tobacco: No; Hx Alcohol Use: No Hx Substance Use: No Preferred Language: Slovak Communication Ability: Effective Managing Broker Required: No Beliefs That Will Affect Care: None and Tenriism Current Living Situation: Spouse Feels Safe at Home: Yes Assistive Devices: Cane, Glasses, Hearing Aid - Bilateral and Walker Results & Data Vital Signs (Past 12 Hours) Vital Signs Temp Pulse Pulse Resp BP BP Pulse Ox 09/05/24 20:14 92 09/05/24 18:54 60 18 147/65 H 95 09/05/24 18:30 60 18 147/65 H 98 09/05/24 18:29 60 09/05/24 16:46 36.6 C 77 18 147/59 H 98 O2 Del Method 09/05/24 20:14 Room Air 09/05/24 18:54 Room Air 09/05/24 18:30 09/05/24 18:29 09/05/24 16:46 Room Air PG Care Time/CCT Total # of Minutes Spent Total Time Spent with Patient: Total time spent is greater than 50% in coordination of care (as documented) at patient's floor/unit and/or counseling patient: Coding Level of Care Code 26192 OP VST NEW LOW 30 MIN Diagnoses Hemorrhage from mouth K13.79 Bleeding post tooth extraction K91.840
--- NOTE | 2024-09-05 23:20 | History & Physical Report ---
Date of Service September 05, 2024 Assessment & Plan (1) Bleeding post tooth extraction: Plan: 84-year-old male with past med history significant for type 2 diabetes, hypertension, severe aortic valve stenosis, CAD, chronic systolic CHF, history of V-fib arrest status post biventricular ICD, history of multivessel coronary disease status post drug-eluting stents, left bundle branch block, history of gross hematuria, history of anemia, history of tobacco use, hyperlipidemia, comes because of bleeding from the gums. Patient had complete tooth extraction on August 28 at [place]. Patient states his teeth were removed in anticipation of heart valve replacement. Today his gums started to bleed and they did not stop even applying pressure and came to the ER. Seems sutures come off. In the ER lidocaine, with epinephrine injection and topical compression gauze with TXA was applied. But still patient continued to bleed. Oral surgery came and saw the patient and surgical hemostasis was performed. Currently bleeding is stopped. Resting comfortably. Denies headache. No sore throat. No cough. No chest pain. No shortness of breath. No nausea. No abdominal pain. Normal bowel and bladder movements. Ambulating okay. Hemodynamics okay. Bleeding post tooth extraction Currently bleeding been stopped by oral surgery Observation in the hospital N.p.o. for now Oral surgery consult in a.m. Acute on chronic anemia Hemoglobin 7.8 Baseline around 8 Blood consent obtained Follow repeat labs Mild hyperkalemia Potassium 5.3 We will hold spironolactone and Entresto Will Follow repeat labs in a.m. Chronic systolic CHF EF 35% on echo on April 2024 Holding spironolactone and Entresto for now Monitor for volume overload History of CAD s/p stents Continue aspirin, Plavix and statin and beta-kaity History of-V-fib arrest Status post biventricular ICD History of type 2 diabetes Hold home p.o. medications Sliding scale Will monitor History of severe aortic stenosis Follow-up Hypertension Continue metoprolol succinate Holding Entresto and spironolactone Will monitor DVT prophylaxis SCDs for now Disposition Observation med/telemetry Full code History of Present Illness Chief Complaint: Bleeding from the gums Primary Care Provider: Elvis Flores MD 84-year-old male with past med history significant for type 2 diabetes, hypertension, severe aortic valve stenosis, CAD, chronic systolic CHF, history of V-fib arrest status post biventricular ICD, history of multivessel coronary disease status post drug-eluting stents, left bundle branch block, history of gross hematuria, history of anemia, history of tobacco use, hyperlipidemia, comes because of bleeding from the gums. Patient had complete tooth extraction on August 28 at [place]. Patient states his teeth were removed in anticipation of heart valve replacement. Today his gums started to bleed and they did not stop even applying pressure and came to the ER. Seems sutures come off. In the ER lidocaine, with epinephrine injection and topical compression gauze with TXA was applied. But still patient continued to bleed. Oral surgery came and saw the patient and surgical hemostasis was performed. Currently bleeding is stopped. Resting comfortably. Denies headache. No sore throat. No cough. No chest pain. No shortness of breath. No nausea. No abdominal pain. Normal bowel and bladder movements. Ambulating okay. Hemodynamics okay. Past medical history. As mentioned above Past surgical history. Status post cardiac angioplasty. Colonoscopy. EGD. Status post biventricular defibrillator. Inguinal orchiopexy. Social history. . Quit smoking 2014. Alcohol occasional beer. No drug use. Family history. Father had bladder cancer. Diabetes. Sister had diabetes. Mother had heart disorder. Allergies Allergy/AdvReac Type Severity Reaction Status Date / Time No Known Allergies Allergy Verified 03/02/24 20:54 Home Medications Medication Instructions Recorded Confirmed Type amiodarone 200 mg tablet 200 mg PO DAILY 09/05/24 09/05/24 History aspirin 81 mg tablet,delayed 81 mg PO DAILY 09/05/24 09/05/24 History release atorvastatin 40 mg tablet 40 mg PO DAILY 09/05/24 09/05/24 History clopidogrel 75 mg tablet (Plavix) 75 mg PO DAILY 09/05/24 09/05/24 History glipizide 5 mg tablet, extended 5 mg PO DAILY 09/05/24 09/05/24 History release 24 hr metformin 1,000 mg tablet 1,000 mg PO BID 09/05/24 09/05/24 History metoprolol succinate 50 mg 25 mg PO DAILY 09/05/24 09/05/24 History tablet,extended release 24 hr sacubitril 24 mg-valsartan 26 mg 0.5 tab PO BID 09/05/24 09/05/24 History tablet (Entresto) spironolactone 25 mg tablet 12.5 mg PO DAILY 09/05/24 09/05/24 History Past Med/Surg History Problem List (Updated 09/05/24 @ 21:41 by Luis Daniel Arciniega DMD) Bleeding post tooth extraction Hemorrhage from mouth (Acute) Decreased cardiac ejection fraction (Acute) H/O ventricular fibrillation (Acute) Syncope (Acute) LBBB (left bundle branch block) Hypothyroid Hypotension Syncope Severe aortic stenosis (Acute) CAD (coronary artery disease) Bilateral carpal tunnel syndrome Right carpal tunnel syndrome Right trigger finger got injection Vitamin D deficiency Anemia (Acute) Aortic valve sclerosis (Chronic) follows with Dr. Velasquez Diabetes mellitus, type II (Chronic) NIDDM Dyslipidemia (Chronic) HTN (hypertension) (Chronic) Medical History Bacteremia due to Gram-negative bacteria Sepsis Hemorrhagic shock Cardiogenic shock Complicated urinary tract infection Hematuria Hyperglycemia due to type 2 diabetes mellitus Septic shock Emphysematous cystitis Generalized weakness Acute hypotension Aortic valve stenosis determined by imaging Ventricular fibrillation Respiratory failure Cardiac arrest GI bleed Aortic valve sclerosis followed with Dr Velasquez Diabetes mellitus, type 2 NIDDM History of anemia r/t GI bleed in 11/2018. EGD and x5 units of blood History of GI bleed (11/2018) Hypertension Hyperlipidemia History of COVID-29 Nov 2021 > not hospitalized Surgical History S/P coronary angioplasty S/P carpal tunnel release (05/15/23) right History of left cataract extraction History of tooth extraction History of tonsillectomy History of esophagogastroduodenoscopy (EGD) 12/04/2018. propofol no issues. 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 Head- atraumatic Eyes- PERRL, ENT- oropharynx clear. No obvious bleeding seen Neck- supple, no JVD. Lungs- clear to auscultation no wheezing or crackles. Heart- regular rhythm;ESM in aortic area. no gallop. Abdomen- normal bowel sounds, soft, nontender, no distension Extremities- no pretibial edema, no erythema seen Neuro- alert, oriented PERRL, no facial palsy; no dysarthria; moves extremities Results & Data Results & Data Vital Signs (Past 12 Hours) Vital Signs Temp Pulse Pulse Resp BP BP Pulse Ox 09/05/24 22:12 61 17 163/91 H 97 09/05/24 22:07 61 09/05/24 21:33 60 19 157/73 H 98 09/05/24 20:15 168/69 H 99 09/05/24 20:14 92 09/05/24 18:54 60 18 147/65 H 95 09/05/24 18:30 60 18 147/65 H 98 09/05/24 18:29 60 09/05/24 16:46 36.6 C 77 18 147/59 H 98 O2 Del Method 09/05/24 22:12 Room Air 09/05/24 22:07 09/05/24 21:33 Room Air 09/05/24 20:15 09/05/24 20:14 Room Air 09/05/24 18:54 Room Air 09/05/24 18:30 09/05/24 18:29 09/05/24 16:46 Room Air Diagnostic Findings Laboratory Results WBC 4.33 K/ul (4.8-10.8) L 09/05/24 18:00 RBC 2.59 M/uL (4.70-6.10) L 09/05/24 18:00 Hgb 7.6 g/dl (14.0-18.0) L 09/05/24 18:00 Hct 23.9 % (42.0-52.0) L 09/05/24 18:00 MCV 92.3 fL (80.0-100.0) 09/05/24 18:00 MCH 29.3 pg (25.0-34.0) 09/05/24 18:00 MCHC 31.8 g/dL (32.0-36.0) L 09/05/24 18:00 RDW Std Deviation 44.3 fL (36.4-46.3) 09/05/24 18:00 RDW Coeff of Erendira 13.1 % (11.5-14.5) 09/05/24 18:00 Plt Count 185 K/uL (130-400) 09/05/24 18:00 MPV 9.5 fL (9.4-12.4) 09/05/24 18:00 Immature Gran % (Auto) 0.5 % 09/05/24 18:00 Neut % (Auto) 64.0 % 09/05/24 18:00 Lymph % (Auto) 25.2 % 09/05/24 18:00 [place] % (Auto) 9.2 % 09/05/24 18:00 Eos % (Auto) 0.9 % 09/05/24 18:00 Baso % (Auto) 0.2 % 09/05/24 18:00 Neut # (Auto) 2.77 K/uL (1.40-6.50) 09/05/24 18:00 Lymph # (Auto) 1.09 K/uL (1.20-3.40) L 09/05/24 18:00 [place] # (Auto) 0.40 K/uL (0.11-0.59) 09/05/24 18:00 Eos # (Auto) 0.04 K/uL (0.00-0.50) 09/05/24 18:00 Baso # (Auto) 0.01 K/uL (0.00-0.20) 09/05/24 18:00 Immature Gran # (Auto) 0.02 K/uL (0.01-0.20) 09/05/24 18:00 RBC Morphology Unremarkable 09/05/24 18:00 PT 10.4 Seconds (9.0-12.0) 09/05/24 18:00 INR 1.0 (0.9-1.1) 09/05/24 18:00 APTT 24 Seconds (21-31) 09/05/24 18:00 PTT Ratio 0.9 09/05/24 18:00 Sodium 137 mmol/L (136-145) 09/05/24 18:00 Potassium 5.3 mmol/L (3.5-5.1) H 09/05/24 18:00 Chloride 104 mmol/L (98-107) 09/05/24 18:00 Carbon Dioxide 27 mmol/L (21-32) 09/05/24 18:00 Anion Gap 6 (3-11) 09/05/24 18:00 BUN 24 mg/dl (6-23) H 09/05/24 18:00 Creatinine 0.97 mg/dl (0.6-1.4) 09/05/24 18:00 Est Cr Clr Drug Dosing 58.6 ml/min 09/05/24 18:00 eGFR 76.50 09/05/24 18:00 BUN/Creatinine Ratio 24.7 (10-20) H 09/05/24 18:00 Glucose 125 mg/dl (70-99(Fasting)) H 09/05/24 18:00 Calcium 9.3 mg/dl (8.6-10.3) 09/05/24 18:00 Total Bilirubin 0.2 mg/dl (0.2-1.0) 09/05/24 18:00 AST 37 U/L (13-39) 09/05/24 18:00 ALT 42 U/L (7-52) 09/05/24 18:00 Alkaline Phosphatase 46 U/L (34-104) 09/05/24 18:00 Total Protein 6.6 gm/dl (6.0-8.3) 09/05/24 18:00 Albumin 3.7 gm/dl (3.4-5.0) 09/05/24 18:00 Globulin 2.9 gm/dl (2.5-4.0) 09/05/24 18:00 Albumin/Globulin Ratio 1.3 (0.9-2) 09/05/24 18:00 Code Status & VTE Plan VTE Prophylaxis Plan VTE Prophylaxis will be ordered: Yes
[2024-09-06] MEDS ORDERED: NITROGLYCERIN SL 0.4 MG/TAB TAB SL PRN (00:52)
[2024-09-06] MEDS ORDERED: ACETAMINOPHEN 325 MG TAB PO PRN (00:52)
[2024-09-06 03:16] VITALS: TEMP 97.5
[2024-09-06 03:32] LABS: Appearance Urine Cloudy (Clear); Bacteria Urine Automated None Seen (None Seen); Cast Urine Automated 0-2 /lpf (0-2); Epithelial Cell Urine Auto 0-2 /hpf (0-2); Glucose Urine UA Negative (Negative); RBC Urine Automated 0-2 /hpf (0-2); WBC Urine Automated 0-5 /hpf (0-5)
[2024-09-06 05:41] LABS: Hematocrit (blood only) 22.8 % (42.0-52.0); Hemoglobin 7.4 g/dl (14.0-18.0); Immature Granulocytes # (auto) 0.01 K/uL (0.01-0.20); Immature Granulocytes % (auto) 0.2 %; Mean Corpuscular Hemoglobin 29.8 pg (25.0-34.0); Mean Corpuscular Volume 91.9 fL (80.0-100.0); Platelet Count 201 K/uL (130-400); RDW Standard Deviation 43.4 fL (36.4-46.3); Red Blood Count 2.48 M/uL (4.70-6.10); White Blood Count 5.05 K/ul (4.8-10.8)
[2024-09-06 06:00] LABS: Anion Gap 7.0 (3-11); Blood Urea Nitrogen 21.0 mg/dl (6-23); Calcium 8.8 mg/dl (8.6-10.3); Carbon Dioxide 26.0 mmol/L (21-32); Chloride 103.0 mmol/L (98-107); Creatinine Clr Calc Pharmacy 67.2 ml/min; Glucose 120.0 mg/dl (70-99(Fasting)); Magnesium 1.5 mg/dl (1.7-2.4); Potassium 4.3 mmol/L (3.5-5.1); Sodium 136.0 mmol/L (136-145)
[2024-09-06 06:06] LABS: Polychromasia 1+
[2024-09-06] MEDS: MAGNESIUM SULFATE / D5W 1 GM/100 ML BAG IV ONE (08:18)
[2024-09-06] MEDS: METOPROLOL SUCC 25MG EXT REL TAB PO SCH (08:20)
[2024-09-06] MEDS: AMIODARONE 200 MG TAB PO SCH (08:20)
[2024-09-06] MEDS: CLOPIDOGREL BISULFATE 75 MG TAB PO SCH (08:20)
[2024-09-06] MEDS: ASPIRIN 81 MG ECTAB PO SCH (08:20)
[2024-09-06] MEDS: ATORVASTATIN 40 MG TAB PO SCH (08:20)
--- NOTE | 2024-09-06 10:52 | Progress Note ---
Date of Service September 06, 2024 Assessment & Plan Admission and Anticipated Discharge Date Admission Date: September 05, 2024 Subjective POST OP NOTE at 18 hours s/p post op bleeding event teeth removed 10 days ago at [facility] Oral Surgery - developed brisk bleeding September 05--to ER for control of bleeding The patient did very well post operatively, no further oral bleeding Sutures in place, minimal swelling as expected. Tissue tone =healthy normal tissue Reviewed oral care=has Peridex at home Reviewed diet-soft non chew diet OK for aortic valve replacement in [facility] as panned Overall: Excellent result from recent control of oral bleeding lower right side Results & Data Vital Signs (Past 12 Hours) Vital Signs Temp Pulse Pulse Pulse Resp BP BP 09/06/24 08:04 09/06/24 07:56 36.4 C L 60 16 134/65 09/06/24 07:09 64 09/06/24 03:15 36.4 C L 60 16 121/69 09/06/24 01:14 60 09/06/24 00:41 36.2 C L 63 18 126/66 09/06/24 00:35 60 18 144/78 H 09/06/24 00:00 60 17 144/74 H Pulse Ox O2 Del Method 09/06/24 08:04 Room Air 09/06/24 07:56 98 Room Air 09/06/24 07:09 09/06/24 03:15 99 Room Air 09/06/24 01:14 09/06/24 00:41 100 Room Air 09/06/24 00:35 98 Room Air 09/06/24 00:00 98 Room Air PG Care Time/CCT Total # of Minutes Spent Total Time Spent with Patient: Total time spent is greater than 50% in coordination of care (as documented) at patient's floor/unit and/or counseling patient: Coding Level of Care Code None
--- NOTE | 2024-09-06 11:41 | Discharge Summary ---
Discharge Summary Date of Service September 06, 2024 Principal Dx & Hospital Course #1 = Principal Diagnosis (1) Bleeding post tooth extraction: Notes For Next Care Provider Medication Changes From Visit / Admission HPI Per Admitting Provider 84-year-old male with past med history significant for type 2 diabetes, hypertension, severe aortic valve stenosis, CAD, chronic systolic CHF, history of V-fib arrest status post biventricular ICD, history of multivessel coronary disease status post drug-eluting stents, left bundle branch block, history of gross hematuria, history of anemia, history of tobacco use, hyperlipidemia, comes because of bleeding from the gums. Patient had complete tooth extraction on August 28 at [facility]. Patient states his teeth were removed in anticipation of heart valve replacement. Today his gums started to bleed and they did not stop even applying pressure and came to the ER. Seems sutures come off. In the ER lidocaine, with epinephrine injection and topical compression gauze with TXA was applied. But still patient continued to bleed. Oral surgery came and saw the patient and surgical hemostasis was performed. Currently bleeding is stopped. Resting comfortably. Denies headache. No sore throat. No cough. No chest pain. No shortness of breath. No nausea. No abdominal pain. Normal bowel and bladder movements. Ambulating okay. Hemodynamics okay. Past medical history. As mentioned above Past surgical history. Status post cardiac angioplasty. Colonoscopy. EGD. Status post biventricular defibrillator. Inguinal orchiopexy. Social history. . Quit smoking 2014. Alcohol occasional beer. No drug use. Family history. Father had bladder cancer. Diabetes. Sister had diabetes. Mother had heart disorder. Discharge Exam General- adult male seen at bedside Eyes- PERRL, EOMI, anicteric ENT- oropharynx clear, no further hemorrhage noted. Neck- supple, no JVD, no adenopathy, no thyromegaly; Lungs- clear to auscultation and percussion Heart- regular rhythm; 4/6 systolic murmur detected Abdomen- normal bowel sounds, soft, nontender, no masses or hepatosplenomegaly Extremities- no pretibial edema, no calf tenderness; peripheral pulses intact Neuro- alert, oriented x 3; PERRL, EOMI; no facial palsy; no focal deficits Skin- warm & dry Updated Medication List Medication Instructions Recorded Confirmed Type amiodarone 200 mg tablet 200 mg PO DAILY 09/05/24 09/05/24 History aspirin 81 mg tablet,delayed 81 mg PO DAILY 09/05/24 09/05/24 History release atorvastatin 40 mg tablet 40 mg PO DAILY 09/05/24 09/05/24 History clopidogrel 75 mg tablet (Plavix) 75 mg PO DAILY 09/05/24 09/05/24 History glipizide 5 mg tablet, extended 5 mg PO DAILY 09/05/24 09/05/24 History release 24 hr metformin 1,000 mg tablet 1,000 mg PO BID 09/05/24 09/05/24 History metoprolol succinate 50 mg 25 mg PO DAILY 09/05/24 09/05/24 History tablet,extended release 24 hr sacubitril 24 mg-valsartan 26 mg 0.5 tab PO BID 09/05/24 09/05/24 History tablet (Entresto) spironolactone 25 mg tablet 12.5 mg PO DAILY 09/05/24 09/05/24 History Hospital Stay Data Consultations 09/05/24 20:46 ED Decision to Admit Stat 09/06/24 05:00 Consult Oromaxillofacial Surgery Routine Procedures Performed Cauterization and resuturing of gums Diagnostic Imagining Performed Laboratory Results WBC 5.05 K/ul (4.8-10.8) 09/06/24 05:07 RBC 2.48 M/uL (4.70-6.10) L 09/06/24 05:07 Hgb 7.4 g/dl (14.0-18.0) L 09/06/24 05:07 Hct 22.8 % (42.0-52.0) L 09/06/24 05:07 MCV 91.9 fL (80.0-100.0) 09/06/24 05:07 MCH 29.8 pg (25.0-34.0) 09/06/24 05:07 MCHC 32.5 g/dL (32.0-36.0) 09/06/24 05:07 RDW Std Deviation 43.4 fL (36.4-46.3) 09/06/24 05:07 RDW Coeff of Erendira 12.9 % (11.5-14.5) 09/06/24 05:07 Plt Count 201 K/uL (130-400) 09/06/24 05:07 MPV 9.9 fL (9.4-12.4) 09/06/24 05:07 Immature Gran % (Auto) 0.2 % 09/06/24 05:07 Neut % (Auto) 69.1 % 09/06/24 05:07 Lymph % (Auto) 21.2 % 09/06/24 05:07 [place] % (Auto) 8.5 % 09/06/24 05:07 Eos % (Auto) 0.8 % 09/06/24 05:07 Baso % (Auto) 0.2 % 09/06/24 05:07 Neut # (Auto) 3.49 K/uL (1.40-6.50) 09/06/24 05:07 Lymph # (Auto) 1.07 K/uL (1.20-3.40) L 09/06/24 05:07 [place] # (Auto) 0.43 K/uL (0.11-0.59) 09/06/24 05:07 Eos # (Auto) 0.04 K/uL (0.00-0.50) 09/06/24 05:07 Baso # (Auto) 0.01 K/uL (0.00-0.20) 09/06/24 05:07 Immature Gran # (Auto) 0.01 K/uL (0.01-0.20) 09/06/24 05:07 RBC Morphology Unremarkable 09/05/24 18:00 Polychromasia 1+ 09/06/24 05:07 PT 10.4 Seconds (9.0-12.0) 09/05/24 18:00 INR 1.0 (0.9-1.1) 09/05/24 18:00 APTT 24 Seconds (21-31) 09/05/24 18:00 PTT Ratio 0.9 09/05/24 18:00 Sodium 136 mmol/L (136-145) 09/06/24 05:07 Potassium 4.3 mmol/L (3.5-5.1) 09/06/24 05:07 Chloride 103 mmol/L (98-107) 09/06/24 05:07 Carbon Dioxide 26 mmol/L (21-32) 09/06/24 05:07 Anion Gap 7 (3-11) 09/06/24 05:07 BUN 21 mg/dl (6-23) 09/06/24 05:07 Creatinine 0.83 mg/dl (0.6-1.4) 09/06/24 05:07 Est Cr Clr Drug Dosing 67.2 ml/min 09/06/24 05:07 eGFR 85.77 09/06/24 05:07 BUN/Creatinine Ratio 25.3 (10-20) H 09/06/24 05:07 Glucose 120 mg/dl (70-99(Fasting)) H 09/06/24 05:07 Calcium 8.8 mg/dl (8.6-10.3) 09/06/24 05:07 Magnesium 1.5 mg/dl (1.7-2.4) L 09/06/24 05:07 Total Bilirubin 0.2 mg/dl (0.2-1.0) 09/05/24 18:00 AST 37 U/L (13-39) 09/05/24 18:00 ALT 42 U/L (7-52) 09/05/24 18:00 Alkaline Phosphatase 46 U/L (34-104) 09/05/24 18:00 Total Protein 6.6 gm/dl (6.0-8.3) 09/05/24 18:00 Albumin 3.7 gm/dl (3.4-5.0) 09/05/24 18:00 Globulin 2.9 gm/dl (2.5-4.0) 09/05/24 18:00 Albumin/Globulin Ratio 1.3 (0.9-2) 09/05/24 18:00 Urine Color Yellow 09/06/24 03:05 Urine Appearance Cloudy (Clear) A 09/06/24 03:05 Urine pH 5.5 (4.5-7.5) 09/06/24 03:05 Ur Specific [place] 1.019 (1.000-1.030) 09/06/24 03:05 Urine Protein Negative (Negative) 09/06/24 03:05 Urine Glucose (UA) Negative (Negative) 09/06/24 03:05 Urine Ketones Trace (Negative) H 09/06/24 03:05 Urine Blood Negative (Negative) 09/06/24 03:05 Urine Nitrite Negative (Negative) 09/06/24 03:05 Urine Bilirubin Negative (Negative) 09/06/24 03:05 Urine Urobilinogen Negative (Negative) 09/06/24 03:05 Ur Leukocyte Esterase Trace (Negative) H 09/06/24 03:05 Urine WBC (Auto) 0-5 /hpf (0-5) 09/06/24 03:05 Urine RBC (Auto) 0-2 /hpf (0-2) 09/06/24 03:05 U Hyaline Cast (Auto) 0-2 /lpf (0-2) 09/06/24 03:05 U Epithel Cells (Auto) 0-2 /hpf (0-2) 09/06/24 03:05 Urine Bacteria (Auto) None Seen (None Seen) 09/06/24 03:05 Urine Comment 09/06/24 03:05 Pending Results Patient Have Any Pending Studies at Discharge: No Discharge Instructions Given to Patient (Per Discharging Provider) Recheck CBC Follow-up with cardiac surgery and PCP Call oral surgery if there is any further oozing or bleeding Total Time Total Time Spent Total Time Spent (In Minutes): Total time spent in discharge planning was 40 minutes. Course Course [facility]; Patient was admitted to general medical floor . Giovani is an 84-year-old male with past med history significant for type 2 diabetes, hypertension, severe aortic valve stenosis, CAD, chronic systolic CHF, history of V-fib arrest status post biventricular ICD, history of multivessel coronary disease status post drug- eluting stents, left bundle branch block, history of gross hematuria, history of anemia, history of tobacco use, hyperlipidemia admitted for bleeding from the gums. Patient had complete tooth extraction on August 28 at [facility]. Patient states his teeth were removed in anticipation of heart valve replacement. Today his gums started to bleed and they did not stop even applying pressure and came to the ER. It seems sutures come off. In the ER lidocaine, with epinephrine injection and topical compression gauze with TXA was applied. But still patient continued to bleed. Oral surgery saw the patient and surgical hemostasis was performed. The patient was observed overnight. He had no further bleeding. He was seen by oral surgery again and was told he could have a soft diet. He was told he could go back on his aspirin and Plavix. Hemoglobin remained stable. At the time of discharge the patient's vital signs are stable. He was ambulating without difficulty. He was instructed to follow-up with cardiac surgery and his PCP. Repeat CBC as an outpatient. Patient was discharged with instructions and told to follow-up if he had any further bleeding. Administered Medications Amiodarone HCl (Amiodarone 200 Mg Tab) 200 mg PO DAILY ALIX Stop: 10/06/24 08:59 Last Admin: 09/06/24 08:20 Dose: 200 mg Documented By: JOSE Aspirin (Aspirin 81 Mg Ectab) 81 mg PO DAILY ALIX Stop: 10/06/24 08:59 Last Admin: 09/06/24 08:20 Dose: 81 mg Documented By: JOSE Atorvastatin Calcium (Atorvastatin 40 Mg Tab) 40 mg PO DAILY ALIX Stop: 10/06/24 08:59 Last Admin: 09/06/24 08:20 Dose: 40 mg Documented By: JOSE Clopidogrel Bisulfate (Clopidogrel Bisulfate 75 Mg Tab) 75 mg PO DAILY ALIX Stop: 10/06/24 08:59 Last Admin: 09/06/24 08:20 Dose: 75 mg Documented By: JOSE Metoprolol Succinate (Metoprolol Succ 25mg Ext Rel Tab) 25 mg PO DAILY ALIX Stop: 10/06/24 08:59 Last Admin: 09/06/24 08:20 Dose: 25 mg Documented By: JOSE Discontinued Medications Acetaminophen (Acetaminophen 500 Mg Tab) 1,000 mg PO NOW STA Stop: 09/05/24 21:34 Last Admin: 09/05/24 21:38 Dose: 1,000 mg Documented By: ZEINA Magnesium Sulfate/Dextrose (Magnesium Sulfate / D5w) 1 gm in 100 mls @ 50 mls/hr IV ONE ONE Stop: 09/06/24 09:14 Last Infusion: 09/06/24 10:21 Dose: Infused Documented By: Admin: 09/06/24 08:18 Dose: 50 mls/hr Documented By: JOSE Lidocaine/Epinephrine (Lidocaine 1%/Epinephrine 1:100,000 50 Ml Vial) 1 ml INFIL NOW ONE Stop: 09/05/24 17:19 Last Admin: 09/05/24 17:28 Dose: 1 ml Documented By: ZEINA Miscellaneous (Surgicel Absorb Hemostat 2in X 14in) 1 each TOP ONCE ONE Stop: 09/05/24 18:01 Last Admin: 09/05/24 18:30 Dose: 1 each Documented By: DALILA Silver Nitrate/Potassium Nitrate (Silver Nitr/Potassium Nitrate Applicator) Confirm Administered Dose 1 appl .ROUTE .STK-MED ONE Stop: 09/05/24 19:55 Last Admin: 09/05/24 20:06 Dose: 1 appl Documented By: TANA Tranexamic Acid (Txa 10% Non-Iv Routes 100 Mg/Ml Vial) 1,000 mg TOP ONE ONE Stop: 09/05/24 17:19 Last Admin: 09/05/24 17:28 Dose: 1,000 mg Documented By: ZEINA
[2024-09-06 12:07] VITALS: BP 137/57; PULSE 59; RESP 18; O2SAT 95
== END 2024-09-06 14:02 | disposition home or self-care (01) ==
LOC: ED 16:44 → 2N 16:44